=== PATIENT | male | born 1975 | race Caucasian/White ===

== ENCOUNTER 2018-12-13 22:07 | Inpatient (IN) ==
[2018-12-13 23:14] LABS: Basophils # (auto) 0.02 K/uL (0-0.2); Basophils % (auto) 0.2 %; Eosinophils # (auto) 0.31 K/uL (0-0.5); Eosinophils % (auto) 3.8 %; Hematocrit (blood only) 43.8 % (42-52); Hemoglobin 15.2 g/dL (14.0-18.0); Immature Granulocytes # (auto) 0.03 K/uL (0.00-0.02); Immature Granulocytes % (auto) 0.4 %; Lymphocytes # (auto) 2.83 K/uL (1.2-3.4); Mean Corpuscular Hgb Conc 34.7 g/dL (32-36); Mean Corpuscular Volume 90.5 fL (80-100); Mean Platelet Volume 9.6 fL (7.4-10.4); Monocytes # (auto) 0.58 K/uL (0.11-0.59); Monocytes % (auto) 7.2 %; Neutrophils # (auto) 4.32 K/uL (1.4-6.5); Neutrophils % (auto) 53.4 %; Platelet Count 274 K/uL (130-400); RDW Coefficient of Variation 13.9 % (11.5-14.5); RDW Standard Deviation 45.8 fL (36.4-46.3); Red Blood Count 4.84 M/uL (4.7-6.1); White Blood Count 8.09 K/uL (4.8-10.8)
[2018-12-13 23:34] LABS: Albumin Level 3.4 gm/dl (3.4-5.0); BUN Creatinine Ratio 21.8 (10-20); Calcium 9.1 mg/dl (8.5-10.1); Creatinine Clr Calc Pharmacy 199.3 ml/min; Est GFR (African American) 138.1; Est GFR (Non-African American) 119.2
[2018-12-13 23:43] LABS: Appearance Urine Clear (Clear); Bacteria Urine Automated Negative (Negative); Bilirubin Urine Negative (Negative); Blood Urine Negative (Negative); Color Urine Yellow; Epithelial Cell Urine Auto 20-30 /lpf (0-5); Glucose Urine UA Negative (Negative); Ketones Urine Negative (Negative); Leukocyte Esterase Urine 2+ (Negative); Nitrite Urine Negative (Negative); Protein Urine Negative (Negative); RBC Urine Automated 0-4 /hpf (0-4); Specific Gravity Urine 1.012 (1.000-1.030); Urobilinogen Urine Negative (Negative)
[2018-12-13 23:45] LABS: Albumin Globulin Ratio 1.3 (0.9-2); Bilirubin,Total 0.4 mg/dl (0.2-1); Globulin 2.7 gm/dl (2.5-4.0); Total Protein 6.1 gm/dl (6.4-8.2)
[2018-12-14 00:16] LABS: Amphetamines+Metham, Urine Neg (Neg); Barbiturates, Urine Neg (Neg); Benzodiazepine, Urine Pos (Neg); Cocaine, Urine Neg (Neg); MDMA (Ecstacy), Urine Neg (Neg); Methadone, Urine Neg (Neg); Opiate, Urine Neg (Neg); Phencyclidine, Urine Neg (Neg)
[2018-12-14] MEDS ORDERED: SODIUM CHLORIDE 0.65% NA SOLN 45 ML (OCEAN) PRN (02:52)
[2018-12-14] MEDS ORDERED: BISMUTH SUBSALICYLATE PER ML OMNICELL CHARGE PO PRN (02:52)
[2018-12-14] MEDS ORDERED: MAGNESIUM HYDROXIDE SUSP 30 ML UDC PO PRN (02:52)
[2018-12-14] MEDS ORDERED: ALUMINUM/MAGNESIUM SUSP 30 ML UDC PO PRN (02:52)
--- NOTE | 2018-12-14 03:14 | Emergency Department Note ---
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 He reports that he believes the police were called, because he took his step-father's car for a ride. He notes that he thought he was getting along well with his family prior to this. 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 He reports that he moved from [place] to [place] about 2 months ago to "get away," stating that his mother and step-father live in [place]. The patient complains of being thirsty, an increase in urination frequency, and his "head feeling like a rock." He believes the symptoms in his head are caused by Clozapine, noting that he has been taking it for the past 7 years. The patient denies abdominal pain, hearing voice, seeing things that aren't there, SI, and HI. He states that he has been eating more, because "there's nothing to do." The patient reports that he doesn't work, because of his bone disease. He states that he has stayed as an inpatient in psychiatric care in 2010. He denies using any drugs since 2004 and the regular use of alcohol. The patient notes a history of anxiety and depression. He states that he has a history of diabetes, noting that he believes it to be Type 1. Per the patient's medical records, the patient has a history of paranoid schizophrenia and borderline personality disorder. Per his mother's paperwork, the patient has been having increasing paranoid delusions and irritability. She writes that the patient believes there is something wrong with his food, and he believes that there is something wrong with meats. The mother reports in the paperwork that the patient has been stockpiling healthy food and refusing to take his medications. She states that the patient stole his step-fathers car RAILWAY SIGNAL TECHNICIAN and got cigarettes and alcohol without money. Home Medications Home Medications Medication Instructions Recorded Confirmed Type multivitamin 1 tab PO DAILY 12/13/18 12/13/18 History Past Med/Surg History Medical History Anxiety Borderline personality disorder Depression Diabetes Paranoid schizophrenia Family History Other No pertinent family history Social History Communication Ability: Effective Current Living Situation: Family Feels Safe at Home: Yes Smoking Status: Current every day smoker Review of Systems See HPI for pertinent positives & negatives. and A total of 10 systems reviewed and were otherwise negative Physical Exam Vital Signs Vital Signs - 24 hr 12/13/18 22:08 12/14/18 01:14 12/14/18 03:38 Temperature 36.3 C L Temperature Source Oral Sepsis Action Taken by Nursing No Action Required Pulse Rate 82 96 H Pulse Rate [Left] 76 Respiratory Rate 16 18 20 Respiratory Effort / Characteristics Non-Labored Spontaneous Respiratory Depth Normal Blood Pressure 143/99 H 141/91 H Blood Pressure [Left Arm] 126/74 Blood Pressure Mean 113 Blood Pressure Mean [Left Arm] 91 Blood Pressure Position [Left Arm] Sitting Pulse Oximetry 97 99 97 Oxygen Delivery Method Room Air Room Air Room Air General: Cooperative, soft-spoken. [place] lips repeatedly. HEENT: Head - normocephalic and atraumatic Pupils are equal, round, and reactive to light. Extraocular eye muscles are intact, and sclera are anicteric. Nose - moist nasal mucosa without discharge. Mouth - moist buccal mucosa. Oropharynx is nonerythematous and there is no tonsillar exudate or ed francine noted. Neck: Supple; no JVD, nuchal rigidity, cervical lymphadenopathy, or auscultated bruits. Heart: Regular rate and rhythm. There is a normal S1 and S2 with no murmurs, clicks, or gallops appreciated. Lungs: Clear to auscultation bilaterally with no wheezes, rales, or rhonchi. Abdomen: Soft, completely nontender, nondistended, with good bowel sounds. There are no palpable pulsatile masses or hepatosplenomegaly. There is no guarding, rigidity, or rebound noted. Extremities: No evidence of cyanosis, clubbing, or edema. There are easily palpable peripheral pulses. Skin: warm and dry with good turgor and no rashes. Psych: Patient seems slightly paranoid. Confused at times. The patient denies SI and HI. Course 2308: Past medical records reviewed. The patient was evaluated in room A07, and a complete history and physical examination were performed. Labs were drawn as above. 0056: I spoke with the psych telephonic case manager about the patients case. He has evaluated the patient and recommends inpatient psychiatric care. 0119: I reevaluated the patient and updated him on the plan for him to stay in the hospital. I will sign the 302. 0248: I spoke with the patient. 0313: The patient was accepted to [facility]. 0318: The patient refused to change into scrubs prior to going upstairs. 0332: I spoke with the patient about changing into scrubs, and he agreed to change. Medical Decision Making Differential Diagnosis The differential diagnosis includes: medical noncompliance, acute paranoid schizophrenia, delusions, DKA, and hyperglycemia. Medical Records Attestation: I reviewed the patient's medical records. Home Medications Current Medication List: was personally reviewed by me Laboratory Data Attestation: I reviewed the patient's lab results. Result diagrams: 12/13/18 23:06 12/13/18 23:06 Lab Results 12/13/18 12/13/18 12/13/18 Range/Units 23:06 23:06 23:06 WBC 8.09 (4.8-10.8) K/uL RBC 4.84 (4.7-6.1) M/uL Hgb 15.2 (14.0-18.0) g/dL Hct 43.8 (42-52) % MCV 90.5 (80-100) fL MCH 31.4 (25-34) pg MCHC 34.7 (32-36) g/dL RDW Std Deviation 45.8 (36.4-46.3) fL RDW Coeff of Rubens 13.9 (11.5-14.5) % Plt Count 274 (130-400) K/uL MPV 9.6 (7.4-10.4) fL Immature Gran % (Auto) 0.4 % Neut % (Auto) 53.4 % Lymph % (Auto) 35.0 % Blanco % (Auto) 7.2 % Eos % (Auto) 3.8 % Baso % (Auto) 0.2 % Immature Gran # (Auto) 0.03 H (0.00-0.02) K/uL Neut # (Auto) 4.32 (1.4-6.5) K/uL Lymph # (Auto) 2.83 (1.2-3.4) K/uL Blanco # (Auto) 0.58 (0.11-0.59) K/uL Eos # (Auto) 0.31 (0-0.5) K/uL Baso # (Auto) 0.02 (0-0.2) K/uL Sodium 139 (136-145) mmol/L Potassium 4.0 (3.5-5.1) mmol/L Chloride 108 H (98-107) mmol/L Carbon Dioxide 25 (21-32) mmol/L Anion Gap 6.0 (3-11) BUN 14 (7-18) mg/dl Creatinine 0.65 (0.6-1.4) mg/dl Est Cr Clr Drug Dosing 199.3 ml/min Est GFR ( Amer) 138.1 Est GFR (Non-Af Amer) 119.2 BUN/Creatinine Ratio 21.8 H (10-20) Glucose 89 (70-99) mg/dl Calcium 9.1 (8.5-10.1) mg/dl Total Bilirubin 0.4 (0.2-1) mg/dl AST 18 (15-37) U/L ALT 34 (12-78) U/L Alkaline Phosphatase 67 (45-117) U/L Total Protein 6.1 L (6.4-8.2) gm/dl Albumin 3.4 (3.4-5.0) gm/dl Globulin 2.7 (2.5-4.0) gm/dl Albumin/Globulin Ratio 1.3 (0.9-2) TSH 3.530 (0.300-4.500) uIu/ml Urine Color Urine Appearance (Clear) Urine pH (4.5-7.5) Ur Specific Whitney (1.000-1.030) Urine Protein (Negative) Urine Glucose (UA) (Negative) Urine Ketones (Negative) Urine Blood (Negative) Urine Nitrite (Negative) Urine Bilirubin (Negative) Urine Urobilinogen (Negative) Ur Leukocyte Esterase (Negative) Urine WBC (Auto) (0-5) /hpf Urine RBC (Auto) (0-4) /hpf U Hyaline Cast (Auto) (0-5) /lpf U Epithel Cells (Auto) (0-5) /lpf Urine Bacteria (Auto) (Negative) Urine Opiates Screen (Neg) Ur Methadone, Qual (Neg) Urine Barbiturates (Neg) Ur Phencyclidine (PCP) (Neg) U Amphetamin/Meth Scrn (Neg) MDMA (Ecstasy) Screen (Neg) U Benzodiazepines Scrn (Neg) Ur Cocaine Metabolite (Neg) U Marijuana (THC) Screen (Neg) Ethyl Alcohol mg/dL < 3.0 (0-3) mg/dl 12/13/18 12/13/18 Range/Units 23:35 23:35 WBC (4.8-10.8) K/uL RBC (4.7-6.1) M/uL Hgb (14.0-18.0) g/dL Hct (42-52) % MCV (80-100) fL MCH (25-34) pg MCHC (32-36) g/dL RDW Std Deviation (36.4-46.3) fL RDW Coeff of Rubens (11.5-14.5) % Plt Count (130-400) K/uL MPV (7.4-10.4) fL Immature Gran % (Auto) % Neut % (Auto) % Lymph % (Auto) % Blanco % (Auto) % Eos % (Auto) % Baso % (Auto) % Immature Gran # (Auto) (0.00-0.02) K/uL Neut # (Auto) (1.4-6.5) K/uL Lymph # (Auto) (1.2-3.4) K/uL Blanco # (Auto) (0.11-0.59) K/uL Eos # (Auto) (0-0.5) K/uL Baso # (Auto) (0-0.2) K/uL Sodium (136-145) mmol/L Potassium (3.5-5.1) mmol/L Chloride (98-107) mmol/L Carbon Dioxide (21-32) mmol/L Anion Gap (3-11) BUN (7-18) mg/dl Creatinine (0.6-1.4) mg/dl Est Cr Clr Drug Dosing ml/min Est GFR ( Amer) Est GFR (Non-Af Amer) BUN/Creatinine Ratio (10-20) Glucose (70-99) mg/dl Calcium (8.5-10.1) mg/dl Total Bilirubin (0.2-1) mg/dl AST (15-37) U/L ALT (12-78) U/L Alkaline Phosphatase (45-117) U/L Total Protein (6.4-8.2) gm/dl Albumin (3.4-5.0) gm/dl Globulin (2.5-4.0) gm/dl Albumin/Globulin Ratio (0.9-2) TSH (0.300-4.500) uIu/ml Urine Color Yellow Urine Appearance Clear (Clear) Urine pH 6.0 (4.5-7.5) Ur Specific Whitney 1.012 (1.000-1.030) Urine Protein Negative (Negative) Urine Glucose (UA) Negative (Negative) Urine Ketones Negative (Negative) Urine Blood Negative (Negative) Urine Nitrite Negative (Negative) Urine Bilirubin Negative (Negative) Urine Urobilinogen Negative (Negative) Ur Leukocyte Esterase 2+ H (Negative) Urine WBC (Auto) 10-30 H (0-5) /hpf Urine RBC (Auto) 0-4 (0-4) /hpf U Hyaline Cast (Auto) 1-5 (0-5) /lpf U Epithel Cells (Auto) 20-30 H (0-5) /lpf Urine Bacteria (Auto) Negative (Negative) Urine Opiates Screen Neg (Neg) Ur Methadone, Qual Neg (Neg) Urine Barbiturates Neg (Neg) Ur Phencyclidine (PCP) Neg (Neg) U Amphetamin/Meth Scrn Neg (Neg) MDMA (Ecstasy) Screen Neg (Neg) U Benzodiazepines Scrn Pos H (Neg) Ur Cocaine Metabolite Neg (Neg) U Marijuana (THC) Screen Neg (Neg) Ethyl Alcohol mg/dL (0-3) mg/dl Blood Pressure Blood Pressure Findings: Elevated blood pressure Blood Pressure Disposition: elevated BP felt to be situational MDM Narrative The patient is a 43 year old male who presents to the Emergency Room for a mental health evaluation after an incident that occurred [employer]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 The mother has significant concerns for the patient's well-being and safety. She has positioned a 302. The patient is off all of his psych meds and is extremely paranoid. He seems to have selective eating believing that some of the food is poisoned. The patient became more agitated and slightly aggressive during his stay here in the emergency department. Despite not taking his anti- hyperglycemics, the patient's blood sugar is less than 90. The patient will be admitted to 3 S. Impression & Plan Thought disorder, Noncompliance with medications Discharge Plan Visit Data Chief Complaint: Mental Health Evaluation Stated Complaint: DEPRESSION/302 ED Provider: Sabi Resendiz Discharge Problem: Thought disorder, Noncompliance with medications Patient Disposition: Admitted As Inpatient Discharge Instructions Interventions: ED Discharge Assessment Last Done: 12/14/18 03:38 The lalitoibe's documentation has been prepared under my direction and personally reviewed by me in its entirety. I confirm that the note above accurately reflects all work, treatment, procedures, and medical decision making performed by me.
[2018-12-14] MEDS ORDERED: LORazepam 2 MG/ML VIAL (IM USE) IM PRN (03:55)
[2018-12-14] MEDS ORDERED: HALOPERIDOL 5 MG TAB PO PRN (03:56)
[2018-12-14] MEDS ORDERED: HALOPERIDOL LACTATE 5 MG/ML 1 ML VIAL IM PRN ×2 (03:56→12:02)
[2018-12-14] MEDS: ACETAMINOPHEN 325 MG TAB PO PRN (04:06)
[2018-12-14] MEDS: NICOTINE 21 MG/24 HR TDSY TD SCH (10:14)
--- NOTE | 2018-12-14 10:21 | History & Physical ---
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 Results Laboratory Results - last 24 hr 12/13/18 12/13/18 12/13/18 23:06 23:06 23:06 WBC 8.09 RBC 4.84 Hgb 15.2 Hct 43.8 MCV 90.5 MCH 31.4 MCHC 34.7 RDW Std Deviation 45.8 RDW Coeff of Rubens 13.9 Plt Count 274 MPV 9.6 Immature Gran % (Auto) 0.4 Neut % (Auto) 53.4 Lymph % (Auto) 35.0 Mower % (Auto) 7.2 Eos % (Auto) 3.8 Baso % (Auto) 0.2 Immature Gran # (Auto) 0.03 H Neut # (Auto) 4.32 Lymph # (Auto) 2.83 Mower # (Auto) 0.58 Eos # (Auto) 0.31 Baso # (Auto) 0.02 Sodium 139 Potassium 4.0 Chloride 108 H Carbon Dioxide 25 Anion Gap 6.0 BUN 14 Creatinine 0.65 Est Cr Clr Drug Dosing 199.3 Est GFR ( Amer) 138.1 Est GFR (Non-Af Amer) 119.2 BUN/Creatinine Ratio 21.8 H Glucose 89 Calcium 9.1 Total Bilirubin 0.4 AST 18 ALT 34 Alkaline Phosphatase 67 Total Protein 6.1 L Albumin 3.4 Globulin 2.7 Albumin/Globulin Ratio 1.3 TSH 3.530 Urine Color Urine Appearance Urine pH Ur Specific [place] Urine Protein Urine Glucose (UA) Urine Ketones Urine Blood Urine Nitrite Urine Bilirubin Urine Urobilinogen Ur Leukocyte Esterase Urine WBC (Auto) Urine RBC (Auto) U Hyaline Cast (Auto) U Epithel Cells (Auto) Urine Bacteria (Auto) Urine Opiates Screen Ur Methadone, Qual Urine Barbiturates Ur Phencyclidine (PCP) U Amphetamin/Meth Scrn MDMA (Ecstasy) Screen U Benzodiazepines Scrn Ur Cocaine Metabolite U Marijuana (THC) Screen Ethyl Alcohol mg/dL < 3.0 12/13/18 12/13/18 23:35 23:35 WBC RBC Hgb Hct MCV MCH MCHC RDW Std Deviation RDW Coeff of Rubens Plt Count MPV Immature Gran % (Auto) Neut % (Auto) Lymph % (Auto) Mower % (Auto) Eos % (Auto) Baso % (Auto) Immature Gran # (Auto) Neut # (Auto) Lymph # (Auto) Mower # (Auto) Eos # (Auto) Baso # (Auto) Sodium Potassium Chloride Carbon Dioxide Anion Gap BUN Creatinine Est Cr Clr Drug Dosing Est GFR ( Amer) Est GFR (Non-Af Amer) BUN/Creatinine Ratio Glucose Calcium Total Bilirubin AST ALT Alkaline Phosphatase Total Protein Albumin Globulin Albumin/Globulin Ratio TSH Urine Color Yellow Urine Appearance Clear Urine pH 6.0 Ur Specific [place] 1.012 Urine Protein Negative Urine Glucose (UA) Negative Urine Ketones Negative Urine Blood Negative Urine Nitrite Negative Urine Bilirubin Negative Urine Urobilinogen Negative Ur Leukocyte Esterase 2+ H Urine WBC (Auto) 10-30 H Urine RBC (Auto) 0-4 U Hyaline Cast (Auto) 1-5 U Epithel Cells (Auto) 20-30 H Urine Bacteria (Auto) Negative Urine Opiates Screen Neg Ur Methadone, Qual Neg Urine Barbiturates Neg Ur Phencyclidine (PCP) Neg U Amphetamin/Meth Scrn Neg MDMA (Ecstasy) Screen Neg U Benzodiazepines Scrn Pos H Ur Cocaine Metabolite Neg U Marijuana (THC) Screen Neg Ethyl Alcohol mg/dL Current Inpatient Medications Current Inpatient Medications: Current Inpatient Medications Acetaminophen (Tylenol) 650 mg PO Q4H PRN PRN Reason: Headache or Minor Fever Stop: 01/13/19 02:51 Last Admin: 12/14/18 04:06 Dose: 650 mg Documented by: Al Hydrox/Mg Hydrox/Simethicone (Maalox) 30 ml PO Q4H PRN PRN Reason: GI Upset Stop: 01/13/19 02:51 Bismuth Subsalicylate (Kaopectate) 15 ml PO PRN PRN PRN Reason: Loose Stool Stop: 01/13/19 02:51 Haloperidol (Haldol) 5 mg PO Q4 PRN PRN Reason: agiation Stop: 01/13/19 03:55 Haloperidol Lactate (Haldol) 5 mg IM Q4 PRN PRN Reason: Agitation Stop: 01/13/19 03:55 Hydroxyzine HCl (Vistaril) 25 mg PO Q4H PRN PRN Reason: Anxiety Stop: 01/13/19 02:51 Hydroxyzine HCl (Vistaril) 50 mg PO HSZ PRN PRN Reason: Insomnia Stop: 01/13/19 02:51 Last Admin: 12/14/18 04:06 Dose: 50 mg Documented by: Lorazepam (Ativan) 1 mg PO Q4 PRN PRN Reason: Agitation Stop: 01/13/19 03:52 Lorazepam (Ativan) 1 mg IM Q4 PRN PRN Reason: Agitation Stop: 01/13/19 03:54 Magnesium Hydroxide (Milk Of Magnesia) 30 ml PO DAILY PRN PRN Reason: Heartburn Stop: 01/13/19 02:51 Miscellaneous (Remove Nicoderm Patch) 1 ea N/A DAILY@2100 [facility] Stop: 01/13/19 20:59 Nicotine (Nicoderm Cq) 21 mg TD QAM KELLY Stop: 01/13/19 08:59 Nicotine Polacrilex (Nicorette 2mg) 1 piece MT UD PRN PRN Reason: Nicotine Withdrawal Stop: 01/13/19 08:20 Sodium Chloride ([place] Nasal) 1 - 2 sprays NA PRN PRN PRN Reason: Nasal Dryness/Congestion Stop: 01/13/19 02:51 CPT Code CPT Code Initial Hospital Care: 13582
[2018-12-14] MEDS: HALOPERIDOL 5 MG TAB PO SCH ×2 (12:39→21:47)
[2018-12-15] MEDS: LORazepam 1 MG TAB PO PRN (09:58)
[2018-12-15] MEDS: HALOPERIDOL 5 MG TAB PO SCH ×4 (09:59→21:37)
[2018-12-15] MEDS: NICOTINE 21 MG/24 HR TDSY TD SCH (10:06)
--- NOTE | 2018-12-15 11:35 | Psychiatric Progress Note ---
Date of Service December 15, 2018 Impression / Recommendations Impression 43-year-old single male who recently moved to [facility] from [place] to live with his adoptive mother and stepfather, has a history of a primary thought disorder (schizophrenia versus schizoaffective per available information) as well as personality disorder and treatment noncompliance, multiple previous hospitalizations including one year at the [facility] in [place], most recently on clozapine and Haldol decanoate. He went off his medication 6 months ago, and has decompensated to the point that he is unable to provide for his own basic needs, and is an imminent safety risk to both himself and those around him due to his delusions, 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, antisocial behavior, and inability to differentiate reality from psychosis. 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 He has been increasingly disorganized, bizarre, and erratic in his behavior, and relies on his parents for food, clothing, and care home. They no longer feels safe with him in the home, and are unable to manage his severe psychiatric symptoms and behavior. He does not believe he is ill or needs to be in the hospital, and is refusing to take medications, sign releases for previous providers in [place] so that we can obtain records and past treatment history, or involve his parents. Inpatient treatment is medically necessary due to the severity of his psychotic symptoms and risk for harm to himself or others if discharged. The patient was retained today at a [facility] involuntary commitment hearing. The only change today is that the patient did agree to take a single dose of lorazepam when offered. (He later told me that he had refused it, and then seems surprised when I told him that, in fact, he had taken it.) Staff report that he was at least hesitant about possibly also taking Haldol. He has a history of violence directed towards authority figures including healthcare professionals, and in discussions with the team today we decided that we would continue to attempt to convince him to take oral medications, but may move to medications over objection if he continues to refuse oral antipsychotic medications. (1) Thought disorder: 12/14 -patient is a poor historian, but mother provides historical information. 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 For now we will collect psychosis not otherwise specified. -Patient is refusing to sign releases for previous outpatient providers in [place], and staff contacted them but they refused to provide any information without a signed release. -Medically necessary private room due to psychosis, erratic and disorganized behavior, history of violence, and aggressive behavior and threats to harm others here in the hospital. -Start haloperidol 5 mg twice daily, as patient has a previous good response to Haldol Decanoate and clozapine. Recommend medications over objection once he is on a 303 involuntary commitment and has been seen by a second physician, as he has severe psychotic symptoms which are preventing him from accurately interpreting reality, influencing his behavior, and placing him at risk of harm to both himself and others as he has been acting on his delusions, experiencing auditory and visual 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, paranoia, engaging in unsafe behaviors including driving when he does not have a license or the knowledge to do so, abusing substances, and has been threatening towards others. He demonstrates no insight into his condition, but available information indicates response to treatment with antipsychotic medications in the past. -Medically necessary private room due to psychosis, aggressive behavior, and threats to harm others. -We will need to check fasting lipid profile and glucose once he is cooperative. -Excused from groups from the time being until able to participate appropriately. -Refusing to sign releases for parents, but mother is petitioner, so can inform her of the 303 hearing. 4/5 -The patient did except a single dose of lorazepam this morning, and did seem to be somewhat more calm. He was mildly labile during his involuntary commitment hearing this morning, but managed to maintain control and was not aggressive during the hearing or upon learning that he had been retained by the contracting officer. Accordingly, we will continue to offer him lorazepam, since this medication in his case does not seem to be disinhibiting and, at least today, appeared to have helped him manage angry impulses during his involuntary commitment hearing. -The treatment team and I agree that, if possible, we would like to convince the patient to voluntarily take oral medications. Reports are that this morning he came close to taking oral haloperidol, but at the last minute declined. He is telling us that he will consistently refused medications, but our hope is that as we are able to gain his trust he will become more cooperative. We will continue to try to convince the patient to take oral haloperidol, but if this is unsuccessful we will seek two physician approval of medication over objection and give Haldol 5 mg IM BID. (2) Noncompliance with medications: 12/14 -stopped his medications 6 months ago and has decompensated since. Would benefit from a long-acting injectable, and either long-term inpatient treatment at the [facility] or involuntary outpatient treatment.. 4 -The patient's psychosis and severely impaired insight seem to be making him and accessible to reason, regarding the essential importance of psychiatric medications. There is a past history of favorable response to haloperidol as well as to clozapine. It is agreed that the patient would in all likelihood benefit from a long-acting injectable antipsychotic medication, given his history of recurrent medication nonadherence. (3) Substance abuse: 12/14 -patient is not forthcoming, but mother reports he has been abusing alcohol, cough syrup, diphenhydramine, and likely other substances. We will monitor for withdrawal symptoms, and as his psychosis improves, will provide psychoeducation about the risks of substance abuse and recommendations for abstinence. -Avoid controlled substances given high risk of abuse/misuse/negative outcomes. 12/15 -It is recognized that the patient has an extensive history of abusing chemical substances, and it is generally agreed that use of controlled substances does pose significant risk of abuse and other negative outcomes in the long-term. However, the patient's irritability and unwillingness to cooperate with essential medications, such as haloperidol, as well as his history of physical aggression towards others, may be mitigated by the temporary use of a benzodiazepine. Today, a single dose of lorazepam seems to have been effective in helping the patient maintain composure during an involuntary commitment hearing that did not go in his favor, and staff have noticed that he has been somewhat more cooperative today, possibly in response to the dose of lorazepam. Accordingly, staff will continue to offer the patient as needed lorazepam. (4) Antisocial personality disorder: 12/14 -extensive, lifelong history provided by adoptive mother which reveals a pervasive pattern of disregard for and violation of the rights of others which started at age 8 or earlier, failure to conform to social norms with respect to lawful behaviors as indicated by repeatedly performing acts that are grounds for arrest, deceitfulness, impulsivity and failure to plan ahead, irritability and aggressiveness, reckless disregard for safety of self and others, consistent irresponsibility, and lack of remorse. 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 -Reviewed expectations with respect to behavior on the unit. 12/15 -The patient's history of antisocial behavior is noted, and antisocial personality will not be a focus of treatment during this hospitalization. However, the record indicates that the patient's antisocial behaviors, which are lifelong, are mitigated to some extent when he is being successfully treated for his psychotic disorder. Accordingly, the approach will be to address his anti social behaviors by focusing on addressing his psychosis. Risk Factors Assessment Male: Yes : Yes Do You Have Access To A Gun?: No Health Problems: Yes Mental Health Diagnoses: Yes Substance Use Disorders: Yes Previous Attempt: No Previous Psychiatric Hospitalization: Yes Hopelessness: No Smoker: Yes Protective Factors Assessment Cheondoism Beliefs: No : No Responsible for Young Children: No Employed: No Stable Relationships: No Supportive Family: Yes Good Rapport with Provider: No Absence of Any Risk Factors Above: No Interval History Chief Complaint "I just borrowed my stepfather's car". Review of Systems Sleep Information Total Hours of Sleep: 9.5 Sleep Comments: pt appeared to sleep 2.5 hrs during evening shift. pt on q-15 minute checks Meal Information Percent Meal Consumed - Breakfast: 100 Percent Meal Consumed - Lunch: 100 Percent Meal Consumed - Dinner: 100 Subjective Subjective Patient was seen & assessed and interval progress reviewed with Treatment Team. I met with the patient individually in order to assess his current mental status, evaluate his response to treatment, coordinate any necessary treatment changes with the patient, and address issues and concerns that may arise. The patient has essentially no insight into his illness. He tells me that he has no psychiatric problem and that he has no explanation for his history of multiple psychiatric hospitalizations. He also tells me that "medications do not work" for him and tells me that he will "never take them." When I told him that his family tells us that he he did quite well when taking Haldol and clozapine, he disputes this and insists that the medications are "no good." He is not oriented, and, for example, tells me that he has been in the hospital for 4 or 5 days. When I told him that he had been admitted just yesterday, he said "no. I been here at least 4 days. I came in on ." (Today is Tuesday). He indicates that he has no remorse for taking his stepfather's car, even though he acknowledges that he took it without permission, and explains it only in terms of his desire to go "buy some stuff." (Reportedly, the stepfather's car contains several hundred dollars' worth of items, including alcoholic beverages, and the patient was not known to have any money with which to make the purchases. He acknowledges not eating food that his mother gives to him, and tells me that it is because he only wants "noodles." Staff reports that the patient has been highly suspicious when staff observed him and he has repeatedly asked staff not to look at him. The patient's mother and stepfather have reportedly advised staff that they will be unwilling to accept him back into the house because of his threatening, disorganized, and antisocial behaviors in the home. However, when I explained this to the patient, he simply told me that I was wrong and that he would go back home, or that he would go to live with "friends," evidently friends that he has not seen in several decades. Physical Exam Psychiatric Orientation: oriented to person and + guarded Apperance: + disheveled Eye Contact: + poor eye contact Motor Behavior: no abnormal motor movements Infrequent spontaneous speech. However, the patient often mutters under his breath and simply continues to mutter when asked to repeat what he is said. Affect: + blunted affect The patient states, "My mood is fine." Thought Process: + concrete thought process Illogical. Thought Content: + delusions The patient exhibits a psychotic denial regarding his illness. Specifically, he tells me that he believes that all of his hospitalizations and all efforts to treat him have been either a "mistake" or because "people are stupid." He is very guarded and answers in the negative to most questions regarding thought content, but appears highly suspicious of others. Suicidal Thoughts: denies suicidal thoughts Homicidal Thoughts: denies homicidal thoughts Hallucinations: + auditory 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 The patient appears to be actively responding to internal stimuli, even though he denies that he is hearing things that others do not. Cognition: + recent memory not intact, + remote memory not intact and + attention not intact Estimated Intelligence: + below average estimated intelligence Insight: + severely impaired insight Judgement: + severely impaired judgement Vital Signs (Past 24 Hours) Last Vital Signs Temp 36.6 C 12/15/18 06:53 Pulse 83 12/15/18 06:54 Resp 16 12/15/18 06:53 BP 124/89 12/15/18 06:54 Pulse Ox 97 12/14/18 03:38 Results & Data Current Inpatient Medications Current Inpatient Medications: Current Inpatient Medications Acetaminophen (Tylenol) 650 mg PO Q4H PRN PRN Reason: Headache or Minor Fever Stop: 01/13/19 02:51 Last Admin: 12/14/18 04:06 Dose: 650 mg Documented by: Al Hydrox/Mg Hydrox/Simethicone (Maalox) 30 ml PO Q4H PRN PRN Reason: GI Upset Stop: 01/13/19 02:51 Bismuth Subsalicylate (Kaopectate) 15 ml PO PRN PRN PRN Reason: Loose Stool Stop: 01/13/19 02:51 Haloperidol (Haldol) 5 mg PO BID KELLY Stop: 01/13/19 12:29 Last Admin: 12/15/18 09:59 Dose: Not Given Documented by: Haloperidol (Haldol) 10 mg PO Q4 PRN PRN Reason: psychosis or agitation Stop: 01/13/19 03:55 Haloperidol Lactate (Haldol) 10 mg IM Q4 PRN PRN Reason: psychosis or agitation Stop: 01/13/19 03:55 Hydroxyzine HCl (Vistaril) 25 mg PO Q4H PRN PRN Reason: Anxiety Stop: 01/13/19 02:51 Hydroxyzine HCl (Vistaril) 50 mg PO HSZ PRN PRN Reason: Insomnia Stop: 01/13/19 02:51 Last Admin: 12/14/18 04:06 Dose: 50 mg Documented by: Lorazepam (Ativan) 1 mg PO Q4 PRN PRN Reason: Agitation Stop: 01/13/19 03:52 Last Admin: 12/15/18 09:58 Dose: 1 mg Documented by: Lorazepam (Ativan) 1 mg IM Q4 PRN PRN Reason: Agitation Stop: 01/13/19 03:54 Magnesium Hydroxide (Milk Of Magnesia) 30 ml PO DAILY PRN PRN Reason: Heartburn Stop: 01/13/19 02:51 Miscellaneous (Remove Nicoderm Patch) 1 ea N/A DAILY@2100 [facility] Stop: 01/13/19 20:59 Last Admin: 12/14/18 21:47 Dose: Not Given Documented by: Nicotine (Nicoderm Cq) 21 mg TD QAM [facility] Stop: 01/13/19 08:59 Last Admin: 12/15/18 10:06 Dose: 21 mg Documented by: Nicotine Polacrilex (Nicorette 2mg) 1 piece MT UD PRN PRN Reason: Nicotine Withdrawal Stop: 01/13/19 08:20 Sodium Chloride ([place] Nasal) 1 - 2 sprays NA PRN PRN PRN Reason: Nasal Dryness/Congestion Stop: 01/13/19 02:51 Post Discharge Appointments Primary Care Physician Name Of Family Doctor: Denies Therapist Name of Therapist: Denies Terminal Block Assembler Name of Terminal Block Assembler: Denies CPT Code CPT Code 26011
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
[2018-12-16] MEDS: NICOTINE 21 MG/24 HR TDSY TD SCH (09:10)
[2018-12-16] MEDS: HALOPERIDOL 5 MG TAB PO SCH ×2 (09:10→20:04)
[2018-12-16] MEDS: LORazepam 1 MG TAB PO PRN ×2 (09:50→19:22)
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
[2018-12-16 23:58] LABS: 7-Aminoclonaz, Confirm NEGATIVE NG/ML (CUTOFF=25); Hydro-Alp Ur, GC/MS NEGATIVE NG/ML (CUTOFF=25); Hydroxyethylflurazepam, Conf NEGATIVE NG/ML (CUTOFF=50); Hydroxytriazolam NEGATIVE NG/ML (CUTOFF=50); Lorazepam, Ur GC/MS NEGATIVE NG/ML (CUTOFF=50); Nordiazepam, Confirm NEGATIVE NG/ML (CUTOFF=50); Oxazepam Ur, GC/MS 730 NG/ML (CUTOFF=50); Temazepam, Confirm >2000 NG/ML (CUTOFF=50)
[2018-12-17] MEDS: HALOPERIDOL 5 MG TAB PO SCH ×2 (07:21→20:53)
[2018-12-17] MEDS: NICOTINE 21 MG/24 HR TDSY TD SCH (07:23)
--- NOTE | 2018-12-17 10:45 | Psychiatric Progress Note ---
Date of Service December 17, 2018 Impression / Recommendations (1) Thought disorder: 12/14 -patient is a poor historian, but mother provides historical information. 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 For now we will collect psychosis not otherwise specified. -Patient is refusing to sign releases for previous outpatient providers in [place], and staff contacted them but they refused to provide any information without a signed release. -Medically necessary private room due to psychosis, erratic and disorganized behavior, history of violence, and aggressive behavior and threats to harm others here in the hospital. -Start haloperidol 5 mg twice daily, as patient has a previous good response to Haldol Decanoate and clozapine. Recommend medications over objection once he is on a 303 involuntary commitment and has been seen by a second physician, as he has severe psychotic symptoms which are preventing him from accurately interpreting reality, influencing his behavior, and placing him at risk of harm to both himself and others as he has been acting on his delusions, experiencing auditory and visual 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, paranoia, engaging in unsafe behaviors including driving when he does not have a license or the knowledge to do so, abusing substances, and has been threatening towards others. He demonstrates no insight into his condition, but available information indicates response to treatment with antipsychotic medications in the past. -Medically necessary private room due to psychosis, aggressive behavior, and threats to harm others. -We will need to check fasting lipid profile and glucose once he is cooperative. -Excused from groups from the time being until able to participate appropriately. -Refusing to sign releases for parents, but mother is petitioner, so can inform her of the 303 hearing. 12/15 -The patient did except a single dose of lorazepam this morning, and did seem to be somewhat more calm. He was mildly labile during his involuntary commitment hearing this morning, but managed to maintain control and was not aggressive during the hearing or upon learning that he had been retained by the hearing therapy director. Accordingly, we will continue to offer him lorazepam, since this medication in his case does not seem to be disinhibiting and, at least today, appeared to have helped him manage angry impulses during his involuntary commitment hearing. -The treatment team and I agree that, if possible, we would like to convince the patient to voluntarily take oral medications. Reports are that this morning he came close to taking oral haloperidol, but at the last minute declined. He is telling us that he will consistently refused medications, but our hope is that as we are able to gain his trust he will become more cooperative. We will continue to try to convince the patient to take oral haloperidol, but if this is unsuccessful we will seek two physician approval of medication over objection and give Haldol 5 mg IM BID. 12/16--tolerating Haldol, titrate to 10 mg BID. (2) Noncompliance with medications: 12/14 -stopped his medications 6 months ago and has decompensated since. Would benefit from a long-acting injectable, and either long-term inpatient treatment at the [facility] or involuntary outpatient treatment.. 12/15 -The patient's psychosis and severely impaired insight seem to be making him and accessible to reason, regarding the essential importance of psychiatric medications. There is a past history of favorable response to haloperidol as well as to clozapine. It is agreed that the patient would in all likelihood benefit from a long-acting injectable antipsychotic medication, given his history of recurrent medication nonadherence. 12/16--currently taking PO for a few doses, is on extended involuntary commitment and clearly ongoing schizophrenia which will fail to improve for him to be able to provide self-care without ongoing treatments on inpatient unit and medications over objection. Without antipsychotic medication he is at significant risk of /serious disability and a danger to himself/others. Dr. Srinivasan could provide second opinion if he refuses PO med. (3) Substance abuse: 12/14 -patient is not forthcoming, but mother reports he has been abusing alcohol, cough syrup, diphenhydramine, and likely other substances. We will monitor for withdrawal symptoms, and as his psychosis improves, will provide psychoeducation about the risks of substance abuse and recommendations for abstinence. -Avoid controlled substances given high risk of abuse/misuse/negative outcomes. 12/15 -It is recognized that the patient has an extensive history of abusing chemical substances, and it is generally agreed that use of controlled substances does p ose significant risk of abuse and other negative outcomes in the long-term. However, the patient's irritability and unwillingness to cooperate with essential medications, such as haloperidol, as well as his history of physical aggression towards others, may be mitigated by the temporary use of a benzodiazepine. Today, a single dose of lorazepam seems to have been effective in helping the patient maintain composure during an involuntary commitment hearing that did not go in his favor, and staff have noticed that he has been somewhat more cooperative today, possibly in response to the dose of lorazepam. Accordingly, staff will continue to offer the patient as needed lorazepam. (4) Antisocial personality disorder: 12/14 -extensive, lifelong history provided by adoptive mother which reveals a pervasive pattern of disregard for and violation of the rights of others which started at age 8 or earlier, failure to conform to social norms with respect to lawful behaviors as indicated by repeatedly performing acts that are grounds for arrest, deceitfulness, impulsivity and failure to plan ahead, irritability and aggressiveness, reckless disregard for safety of self and others, consistent irresponsibility, and lack of remorse. 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 -Reviewed expectations with respect to behavior on the unit. 12/15 -The patient's history of antisocial behavior is noted, and antisocial personality will not be a focus of treatment during this hospitalization. However, the record indicates that the patient's antisocial behaviors, which are lifelong, are mitigated to some extent when he is being successfully treated for his psychotic disorder. Accordingly, the approach will be to address his antisocial behaviors by focusing on addressing his psychosis. Risk Factors Assessment Male: Yes : Yes Do You Have Access To A Gun?: No Health Problems: Yes Mental Health Diagnoses: Yes Substance Use Disorders: Yes Previous Attempt: No Previous Psychiatric Hospitalization: Yes Hopelessness: No Smoker: Yes Protective Factors Assessment Ep[employer]alian Beliefs: No : No Responsible for Young Children: No Employed: No Stable Relationships: No Supportive Family: Yes Good Rapport with Provider: No Absence of Any Risk Factors Above: No Interval History Chief Complaint "I'm not willing to talk about that", when questioned re: constipation Review of Systems Sleep Information Total Hours of Sleep: 4.75 Sleep Comments: awake multiple times for the bathroom and drinks. Meal Information Percent Meal Consumed - Breakfast: 100 Percent Meal Consumed - Lunch: 0 Percent Meal Consumed - Dinner: 100 Nutrition Comment: pt. sleeping Subjective Subjective Patient was seen & assessed and interval progress reviewed with Nursing and social group worker. He appears slightly sedated this am but denies side effects. Prn Ativan X2 yesterday. Taking Haldol. He was found to peer into peer's room (females) but did not enter, has been redirectible by staff. He has not yet been told about his living situation. Staff also feel he has apnea on overnights, last testing 10 years ago--discussed PCP follow up with larry. Physical Exam Psychiatric Orientation: oriented to person and + guarded Apperance: + disheveled Eye Contact: + poor eye contact Motor Behavior: no abnormal motor movements Affect: + blunted affect Thought Process: + concrete thought process Thought Content: + delusions Suicidal Thoughts: denies suicidal thoughts Homicidal Thoughts: denies homicidal thoughts Hallucinations: no auditory 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 Cognition: + recent memory not intact, + remote memory not intact and + attention not intact Estimated Intelligence: + below average estimated intelligence Insight: + severely impaired insight Judgement: + severely impaired judgement Vital Signs (Past 24 Hours) Last Vital Signs Temp 36.7 C 12/17/18 06:52 Pulse 108 H 12/17/18 06:57 Resp 18 12/17/18 06:52 BP 96/68 L 12/17/18 06:57 Pulse Ox 97 12/14/18 03:38 Results & Data Laboratory Results Laboratory Results - last 24 hr 12/13/18 23:35 U OH-Alprazolam Confrm NEGATIVE 7-Amino Clonazepam NEGATIVE Ur Nordiazepam Confirm NEGATIVE U OH-ethylflurazepam NEGATIVE U Lorazepam Cnf GC/MS NEGATIVE U Oxazepam Confm GC/MS 730 A Ur Temazepam Confirm >2000 A U OH-Triazolam Confirm NEGATIVE U OH-Midazolam Confirm NEGATIVE Current Inpatient Medications Current Inpatient Medications: Current Inpatient Medications Acetaminophen (Tylenol) 650 mg PO Q4H PRN PRN Reason: Headache or Minor Fever Stop: 01/13/19 02:51 Last Admin: 12/14/18 04:06 Dose: 650 mg Documented by: Al Hydrox/Mg Hydrox/Simethicone (Maalox) 30 ml PO Q4H PRN PRN Reason: GI Upset Stop: 01/13/19 02:51 Bismuth Subsalicylate (Kaopectate) 15 ml PO PRN PRN PRN Reason: Loose Stool Stop: 01/13/19 02:51 Haloperidol (Haldol) 10 mg PO Q4 PRN PRN Reason: psychosis or agitation Stop: 01/13/19 03:55 Haloperidol (Haldol) 10 mg PO BID KELLY Stop: 01/15/19 20:59 Last Admin: 12/17/18 07:21 Dose: 10 mg Documented by: Haloperidol Lactate (Haldol) 10 mg IM Q4 PRN PRN Reason: psychosis or agitation Stop: 01/13/19 03:55 Hydroxyzine HCl (Vistaril) 25 mg PO Q4H PRN PRN Reason: Anxiety Stop: 01/13/19 02:51 Hydroxyzine HCl (Vistaril) 50 mg PO HSZ PRN PRN Reason: Insomnia Stop: 01/13/19 02:51 Last Admin: 12/14/18 04:06 Dose: 50 mg Documented by: Lorazepam (Ativan) 1 mg PO Q4 PRN PRN Reason: Agitation Stop: 01/13/19 03:52 Last Admin: 12/16/18 19:22 Dose: 1 mg Documented by: Lorazepam (Ativan) 1 mg IM Q4 PRN PRN Reason: Agitation Stop: 01/13/19 03:54 Magnesium Hydroxide (Milk Of Magnesia) 30 ml PO DAILY PRN PRN Reason: Heartburn Stop: 01/13/19 02:51 Miscellaneous (Remove Nicoderm Patch) 1 ea N/A DAILY@2100 [facility] Stop: 01/13/19 20:59 Last Admin: 12/16/18 20:04 Dose: Not Given Documented by: Nicotine (Nicoderm Cq) 21 mg TD QAM [facility] Stop: 01/13/19 08:59 Last Admin: 12/17/18 07:23 Dose: 21 mg Documented by: Nicotine Polacrilex (Nicorette 2mg) 1 piece MT UD PRN PRN Reason: Nicotine Withdrawal Stop: 01/13/19 08:20 Sodium Chloride (Keats Nasal) 1 - 2 sprays NA PRN PRN PRN Reason: Nasal Dryness/Congestion Stop: 01/13/19 02:51 Post Discharge Appointments Primary Care Physician Name Of Family Doctor: Denies Therapist Name of Therapist: Denies Director Account Management Name of Director Account Management: Denies CPT Code CPT Code 81510
[2018-12-17] MEDS: LORazepam 1 MG TAB PO PRN ×2 (12:00→17:01)
[2018-12-17] MEDS: ACETAMINOPHEN 325 MG TAB PO PRN (17:54)
[2018-12-18] MEDS: LORazepam 1 MG TAB PO PRN ×2 (00:23→13:02)
[2018-12-18] MEDS: HALOPERIDOL 5 MG TAB PO SCH ×2 (08:21→21:36)
[2018-12-18] MEDS: NICOTINE 21 MG/24 HR TDSY TD SCH (08:21)
--- NOTE | 2018-12-18 10:26 | Psychiatric Progress Note ---
Date of Service December 18, 2018 Impression / Recommendations Impression Patient remains on a 303. At this point he is complying with PO medications, but today says he does not want to go on and LAMA. Will continue with current meds and continue the discussion about long acting meds in view of his history of noncompliance. His mother has told staff that he may not return to her home which he is not yet aware of, and in the past, has been reported to become violent given such information. It is likely that he will require and extended in patient stay, as he has in the past, and so will wait to share that information with him when he is more likely to be in behavioral control. He may need state hospital stay. (1) Thought disorder: 12/14 -patient is a poor historian, but mother provides historical information. 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 For now we will collect psychosis not otherwise specified. -Patient is refusing to sign releases for previous outpatient providers in [place], and staff contacted them but they refused to provide any information without a signed release. -Medically necessary private room due to psychosis, erratic and disorganized behavior, history of violence, and aggressive behavior and threats to harm others here in the hospital. -Start haloperidol 5 mg twice daily, as patient has a previous good response to Haldol Decanoate and clozapine. Recommend medications over objection once he is on a 303 involuntary commitment and has been seen by a second physician, as he has severe psychotic symptoms which are preventing him from accurately interpreting reality, influencing his behavior, and placing him at risk of harm to both himself and others as he has been acting on his delusions, experiencing auditory and visual 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, paranoia, engaging in unsafe behaviors including driving when he does not have a license or the knowledge to do so, abusing substances, and has been threatening towards others. He demonstrates no insight into his condition, but available information indicates response to treatment with antipsychotic medications in the past. -Medically necessary private room due to psychosis, aggressive behavior, and threats to harm others. -We will need to check fasting lipid profile and glucose once he is cooperative. -Excused from groups from the time being until able to participate appropriately. -Refusing to sign releases for parents, but mother is petitioner, so can inform her of the 303 hearing. 4/5 -The patient did except a single dose of lorazepam this morning, and did seem to be somewhat more calm. He was mildly labile during his involuntary commitment hearing this morning, but managed to maintain control and was not aggressive during the hearing or upon learning that he had been retained by the shearing shed worker. Accordingly, we will continue to offer him lorazepam, since this medication in his case does not seem to be disinhibiting and, at least today, appeared to have helped him manage angry impulses during his involuntary commitment hearing. -The treatment team and I agree that, if possible, we would like to convince the patient to voluntarily take oral medications. Reports are that this morning he came close to taking oral haloperidol, but at the last minute declined. He is telling us that he will consistently refused medications, but our hope is that as we are able to gain his trust he will become more cooperative. We will continue to try to convince the patient to take oral haloperidol, but if this is unsuccessful we will seek two physician approval of medication over objection and give Haldol 5 mg IM BID. 12/16--tolerating Haldol, titrate to 10 mg BID. 12/18 - Continue haldol 10 mg bid - Continue discussion about LAMA - Encourage better sleep hygiene, staying awake in the day to promote sleep at night. (2) Noncompliance with medications: 12/14 -stopped his medications 6 months ago and has decompensated since. Would benefit from a long-acting injectable, and either long-term inpatient treatment [facility] the [facility] or involuntary outpatient treatment.. 12/15 -The patient's psychosis and severely impaired insight seem to be making him and accessible to reason, regarding the essential importance of psychiatric medications. There is a past history of favorable response to haloperidol as well as to clozapine. It is agreed that the patient would in all likelihood benefit from a long-acting injectable antipsychotic medication, given his history of recurrent medication nonadherence. 12/16--currently taking PO for a few doses, is on extended involuntary commitment and clearly ongoing schizophrenia which will fail to improve for him to be able to provide self-care without ongoing treatments on inpatient unit and medications over objection. Without antipsychotic medication he is at significant risk of /serious disability and a danger to himself/others. Dr. Srinivasan could provide second opinion if he refuses PO med. 12/18 - Patient refusing to consider LAMA at this time. Will continue to encourage (3) Substance abuse: 12/14 -patient is not forthcoming, but mother reports he has been abusing alcohol, cough syrup, diphenhydramine, and likely other substances. We will monitor for withdrawal symptoms, and as his psychosis improves, will provide psychoeducation about the risks of substance abuse and recommendations for abstinence. -Avoid controlled substances given high risk of abuse/misuse/negative outcomes. 12/15 -It is recognized that the patient has an extensive history of abusing chemical substances, and it is generally agreed that use of controlled substances does pose significant risk of abuse and other negative outcomes in the long-term. However, the patient's irritability and unwillingness to cooperate with essential medications, such as haloperidol, as well as his history of physical aggression towards others, may be mitigated by the temporary use of a benzodiazepine. Today, a single dose of lorazepam seems to have been effective in helping the patient maintain composure during an involuntary commitment h earing that did not go in his favor, and staff have noticed that he has been somewhat more cooperative today, possibly in response to the dose of lorazepam. Accordingly, staff will continue to offer the patient as needed lorazepam. (4) Antisocial personality disorder: 12/14 -extensive, lifelong history provided by adoptive mother which reveals a pervasive pattern of disregard for and violation of the rights of others which started at age 8 or earlier, failure to conform to social norms with respect to lawful behaviors as indicated by repeatedly performing acts that are grounds for arrest, deceitfulness, impulsivity and failure to plan ahead, irritability and aggressiveness, reckless disregard for safety of self and others, consistent irresponsibility, and lack of remorse. 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 -Reviewed expectations with respect to behavior on the unit. 12/15 -The patient's history of antisocial behavior is noted, and antisocial personality will not be a focus of treatment during this hospitalization. However, the record indicates that the patient's antisocial behaviors, which are lifelong, are mitigated to some extent when he is being successfully treated for his psychotic disorder. Accordingly, the approach will be to address his antisocial behaviors by focusing on addressing his psychosis. Risk Factors Assessment Male: Yes : Yes Do You Have Access To A Gun?: No Health Problems: Yes Mental Health Diagnoses: Yes Substance Use Disorders: Yes Previous Attempt: No Previous Psychiatric Hospitalization: Yes Hopelessness: No Smoker: Yes Protective Factors Assessment Mandaeism Beliefs: No : No Responsible for Young Children: No Employed: No Stable Relationships: No Supportive Family: Yes Good Rapport with Provider: No Absence of Any Risk Factors Above: No Interval History Identifying Information 43 yo male admitted with a primary thought disorder, admitted in acute decompensation after stopping his meds 6 mos prior. Chief Complaint "I don't know. ". Review of Systems Sleep Information Total Hours of Sleep: 7.5 Sleep Comments: awake and toileted at 0015 and 0350. he got drinks of soda at those times as well. he was medicated with ativen at 0023 per his request for anxiety/restlessness and was able to sleep. he remains to have obstructed snoring with inaudible episodes of no breath sounds and a very loud inhalation sound that restarts his breathing again. he was awake again at 0600 to time check. Meal Information Percent Meal Consumed - Breakfast: 100 Percent Meal Consumed - Lunch: 100 Percent Meal Consumed - Dinner: 100 Nutrition Comment: pt. sleeping Subjective Subjective Patient was seen & assessed and interval progress reviewed with Treatment Team. The patient was up to breakfast, but has returned to bed. last night he couldn't sleep and took some prn ativan. He indicates that his mood is "I don't know" and feels tired. He says that his thinking is "fine" and denies SI/HI, or aud/vis 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. He offers no spontaneous conversation, and says that he has no needs today. I ask him about using long acting injectable medications, but he says that he doesn't like them, the he doesn't feel good on them in the past. I encourage him to get out of bed so that he can sleep better this PM. Nursing reports that when out in the milieu, he has been looking to other patient's rooms, making them feel uncomfortable, but is cooperative with redirection. He has been taking all of his meds voluntarily with nursing doing mouth checks. Physical Exam Psychiatric Orientation: cooperative (minimally) Apperance: + disheveled (in bed) Eye Contact: + poor eye contact Motor Behavior: no abnormal motor movements Speech: normal rate/rhythm/volume of speech (hypoverbal) tired "I don't know." Thought Process: goal directed thought process Thought Content: reality based without delusions Suicidal Thoughts: denies suicidal thoughts Homicidal Thoughts: denies homicidal thoughts Hallucinations: no auditory 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 and no visual 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 Cognition: recent memory grossly intact, remote memory grossly intact, attention grossly intact and language grossly intact Estimated Intelligence: consistent with education level Insight: + impaired insight Judgement: + impaired judgement Vital Signs (Past 24 Hours) Last Vital Signs Temp 36.7 C 12/17/18 06:52 Pulse 108 H 12/17/18 06:57 Resp 18 12/17/18 06:52 BP 96/68 L 12/17/18 06:57 Pulse Ox 97 12/14/18 03:38 Results & Data Current Inpatient Medications Current Inpatient Medications: Current Inpatient Medications Acetaminophen (Tylenol) 650 mg PO Q4H PRN PRN Reason: Headache or Minor Fever Stop: 01/13/19 02:51 Last Admin: 12/17/18 17:54 Dose: 650 mg Documented by: Al Hydrox/Mg Hydrox/Simethicone (Maalox) 30 ml PO Q4H PRN PRN Reason: GI Upset Stop: 01/13/19 02:51 Bismuth Subsalicylate (Kaopectate) 15 ml PO PRN PRN PRN Reason: Loose Stool Stop: 01/13/19 02:51 Haloperidol (Haldol) 10 mg PO Q4 PRN PRN Reason: psychosis or agitation Stop: 01/13/19 03:55 Haloperidol (Haldol) 10 mg PO BID KELLY Stop: 01/15/19 20:59 Last Admin: 12/18/18 08:21 Dose: 10 mg Documented by: Haloperidol Lactate (Haldol) 10 mg IM Q4 PRN PRN Reason: psychosis or agitation Stop: 01/13/19 03:55 Hydroxyzine HCl (Vistaril) 25 mg PO Q4H PRN PRN Reason: Anxiety Stop: 01/13/19 02:51 Hydroxyzine HCl (Vistaril) 50 mg PO HSZ PRN PRN Reason: Insomnia Stop: 01/13/19 02:51 Last Admin: 12/14/18 04:06 Dose: 50 mg Documented by: Lorazepam (Ativan) 1 mg PO Q4 PRN PRN Reason: Agitation Stop: 01/13/19 03:52 Last Admin: 12/18/18 00:23 Dose: 1 mg Documented by: Lorazepam (Ativan) 1 mg IM Q4 PRN PRN Reason: Agitation Stop: 01/13/19 03:54 Magnesium Hydroxide (Milk Of Magnesia) 30 ml PO DAILY PRN PRN Reason: Heartburn Stop: 01/13/19 02:51 Miscellaneous (Remove Nicoderm Patch) 1 ea N/A DAILY@2100 [facility] Stop: 01/13/19 20:59 Last Admin: 12/17/18 20:53 Dose: Not Given Documented by: Nicotine (Nicoderm Cq) 21 mg TD QAM [facility] Stop: 01/13/19 08:59 Last Admin: 12/18/18 08:21 Dose: 21 mg Documented by: Nicotine Polacrilex (Nicorette 2mg) 1 piece MT UD PRN PRN Reason: Nicotine Withdrawal Stop: 01/13/19 08:20 Sodium Chloride ([place] Nasal) 1 - 2 sprays NA PRN PRN PRN Reason: Nasal Dryness/Congestion Stop: 01/13/19 02:51 Post Discharge Appointments Primary Care Physician Name Of Family Doctor: Denies Therapist Name of Therapist: Denies Detector Car Operator Name of Detector Car Operator: Denies CPT Code CPT Code 42041 [id number]
[2018-12-18] MEDS: ACETAMINOPHEN 325 MG TAB PO PRN ×2 (11:19→19:53)
[2018-12-19] MEDS: NICOTINE 21 MG/24 HR TDSY TD SCH (07:27)
[2018-12-19] MEDS: HALOPERIDOL 5 MG TAB PO SCH ×2 (07:27→20:32)
[2018-12-19] MEDS: ACETAMINOPHEN 325 MG TAB PO PRN ×2 (07:38→13:47)
[2018-12-19 07:47] LABS: Glucose Fasting 93 mg/dl (70-99)
[2018-12-19 07:54] LABS: Chol HDL Ratio 5; Cholesterol 178 mg/dl (0-200); HDL Cholesterol 35 mg/dl; LDL Cholesterol Calculated 106 mg/dl; Triglycerides 186 mg/dl (0-150); VLDL Cholesterol 37 mg/dl
--- NOTE | 2018-12-19 09:06 | Psychiatric Progress Note ---
Date of Service December 19, 2018 Impression / Recommendations Impression Patient remains on a 303. He has been informed that his mother will not accept him home due to his behaviors, but he has no understanding of the impact of his behaviors on others, has no ability to make reasonable decisions (ie thinks its OK to drive without a license in someone else's car) and ultimately believes his mother would never do that ("She's having carpet installed this week."). Although he is denying overt psychotic symptoms, it is clear that he has no insight into his illness, which could lead to ongoing dangerous behaviors if discharged. He says that he has no where else to go; doesn't know his father's whereabouts, grandparents are , no friends or relatives to live with. Will like need to have meeting with mother to discuss. For now continue current meds and encourage LAMA (1) Thought disorder: 12/14 -patient is a poor historian, but mother provides historical information. 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 For now we will collect psychosis not otherwise specified. -Patient is refusing to sign releases for previous outpatient providers in [place], and staff contacted them but they refused to provide any information without a signed release. -Medically necessary private room due to psychosis, erratic and disorganized behavior, history of violence, and aggressive behavior and threats to harm others here in the hospital. -Start haloperidol 5 mg twice daily, as patient has a previous good response to Haldol Decanoate and clozapine. Recommend medications over objection once he is on a 303 involuntary commitment and has been seen by a second physician, as he has severe psychotic symptoms which are preventing him from accurately interpre ting reality, influencing his behavior, and placing him at risk of harm to both himself and others as he has been acting on his delusions, experiencing auditory and visual 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, paranoia, engaging in unsafe behaviors including driving when he does not have a license or the knowledge to do so, abusing substances, and has been threatening towards others. He demonstrates no insight into his condition, but available information indicates response to treatment with antipsychotic medications in the past. -Medically necessary private room due to psychosis, aggressive behavior, and threats to harm others. -We will need to check fasting lipid profile and glucose once he is cooperative. -Excused from groups from the time being until able to participate appropriately. -Refusing to sign releases for parents, but mother is petitioner, so can inform her of the 303 hearing. 12/15 -The patient did except a single dose of lorazepam this morning, and did seem to be somewhat more calm. He was mildly labile during his involuntary commitment hearing this morning, but managed to maintain control and was not aggressive during the hearing or upon learning that he had been retained by the hearing aide technician. Accordingly, we will continue to offer him lorazepam, since this medication in his case does not seem to be disinhibiting and, at least today, appeared to have helped him manage angry impulses during his involuntary commitment hearing. -The treatment team and I agree that, if possible, we would like to convince the patient to voluntarily take oral medications. Reports are that this morning he came close to taking oral haloperidol, but at the last minute declined. He is telling us that he will consistently refused medications, but our hope is that as we are able to gain his trust he will become more cooperative. We will continue to try to convince the patient to take oral haloperidol, but if this is unsuccessful we will seek two physician approval of medication over objection and give Haldol 5 mg IM BID. 12/16--tolerating Haldol, titrate to 10 mg BID. 12/18 - Continue haldol 10 mg bid - Continue discussion about LAMA - Encourage better sleep hygiene, staying awake in the day to promote sleep at night. 12/19 - Patient allowed labs to be drawn. FBS 93, FLP WNL with the exception of triglycerides of 186. Counseled to avoid fatty red meats, saturated fats. (2) Noncompliance with medications: 12/14 -stopped his medications 6 months ago and has decompensated since. Would benefit from a long-acting injectable, and either long-term inpatient treatment at the [facility] or involuntary outpatient treatment.. 12/15 -The patient's psychosis and severely impaired insight seem to be making him and accessible to reason, regarding the essential importance of psychiatric medications. There is a past history of favorable response to haloperidol as well as to clozapine. It is agreed that the patient would in all likelihood benefit from a long-acting injectable antipsychotic medication, given his history of recurrent medication nonadherence. 12/16--currently taking PO for a few doses, is on extended involuntary commitment and clearly ongoing schizophrenia which will fail to improve for him to be able to provide self-care without ongoing treatments on inpatient unit and medications over objection. Without antipsychotic medication he is at significant risk of /serious disability and a danger to himself/others. Dr. Srinivasan could provide second opinion if he refuses PO med. 12/18 - Patient refusing to consider LAMA at this time. Will continue to encourage (3) Substance abuse: 12/14 -patient is not forthcoming, but mother reports he has been abusing alcohol, cough syrup, diphenhydramine, and likely other substances. We will monitor for withdrawal symptoms, and as his psychosis improves, will provide psychoeducation about the risks of substance abuse and recommendations for abstinence. -Avoid controlled substances given high risk of abuse/misuse/negative outcomes. 12/15 -It is recognized that the patient has an extensive history of abusing chemical substances, and it is generally agreed that use of controlled substances does pose significant risk of abuse and other negative outcomes in the long-term. However, the patient's irritability and unwillingness to cooperate with essential medications, such as haloperidol, as well as his history of physical aggression towards others, may be mitigated by the temporary use of a benzodiazepine. Today, a single dose of lorazepam seems to have been effective in helping the patient maintain composure during an involuntary commitment hearing that did not go in his favor, and staff have noticed that he has been somewhat more cooperative today, possibly in response to the dose of lorazepam. Accordingly, staff will continue to offer the patient as needed lorazepam. (4) Antisocial personality disorder: 12/14 -extensive, lifelong history provided by adoptive mother which reveals a pervasive pattern of disregard for and violation of the rights of others which started at age 8 or earlier, failure to conform to social norms with respect to lawful behaviors as indicated by repeatedly performing acts that are grounds for arrest, deceitfulness, impulsivity and failure to plan ahead, irritability and aggressiveness, reckless disregard for safety of self and others, consistent irresponsibility, and lack of remorse. 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 -Reviewed expectations with respect to behavior on the unit. 12/15 -The patient's history of antisocial behavior is noted, and antisocial personality will not be a focus of treatment during this hospitalization. However, the record indicates that the patient's antisocial behaviors, which are lifelong, are mitigated to some extent when he is being successfully treated for his psychotic disorder. Accordingly, the approach will be to address his antisocial behaviors by focusing on addressing his psychosis. Risk Factors Assessment Male: Yes : Yes Do You Have Access To A Gun?: No Health Problems: Yes Mental Health Diagnoses: Yes Substance Use Disorders: Yes Previous Attempt: No Previous Psychiatric Hospitalization: Yes Hopelessness: No Smoker: Yes Protective Factors Assessment [employer] Beliefs: No : No Responsible for Young Children: No Employed: No Stable Relationships: No Supportive Family: Yes Good Rapport with Provider: No Absence of Any Risk Factors Above: No Interval History Identifying Information 43 yo male admitted with a primary thought disorder, admitted in acute decompensation after stopping his meds 6 mos prior. Chief Complaint "I'm OK.". Review of Systems Sleep Information Total Hours of Sleep: 8.25 Sleep Comments: pt NPO during the night. pt on q-15 minute checks Meal Information Percent Meal Consumed - Breakfast: 100 Percent Meal Consumed - Lunch: 100 Percent Meal Consumed - Dinner: 100 Nutrition Comment: pt. sleeping Subjective Subjective Patient was seen & assessed and interval progress reviewed with Treatment Team. Today he is out of bed and watching TV. He continues to deny SI/HI and aud/vis 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. He doesn't want to be in the hospital saying that he can't watch the TV shows he wants, can't go outside, can't smoke or eat the food he wants. I inform him that his mother has said she does not want him to return to her home and he does not understand. I remind him that his behaviors were scary, such as taking his mother's car despite not having a drivers license. He says that "I didn't know" and goes on to say that [place] and that if he got caught they would let him off the first time. I asked how he might provide his mother with some reassurance that this won't happen again and he says "I don't know.". He has complaints of "bone pain" today, but denies CP, SOB, restlessness or GI issues. Physical Exam Psychiatric Orientation: alert and cooperative Apperance: appropriately dressed and + disheveled Eye Contact: good eye contact Motor Behavior: steady gait and station and no abnormal motor movements Speech: normal rate/rhythm/volume of speech Affect: + flat affect Mood: no depressed mood and no anxious mood Thought Process: goal directed thought process vacant Suicidal Thoughts: denies suicidal thoughts Homicidal Thoughts: denies homicidal thoughts Hallucinations: no auditory 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 and no visual 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 Cognition: recent memory grossly intact; + remote memory not intact Estimated Intelligence: consistent with education level Insight: + severely impaired insight Judgement: + severely impaired judgement Vital Signs (Past 24 Hours) Last Vital Signs Temp 36.4 C L 12/19/18 07:06 Pulse 101 H 12/19/18 07:07 Resp 16 12/19/18 07:06 BP 110/74 12/19/18 07:07 Pulse Ox 97 12/14/18 03:38 Results & Data Laboratory Results Laboratory Results - last 24 hr 12/19/18 07:17 Fasting Glucose 93 Triglycerides 186 H Cholesterol 178 LDL Cholesterol, Calc 106 VLDL Cholesterol, Calc 37 HDL Cholesterol 35 Cholesterol/HDL Ratio 5 Current Inpatient Medications Current Inpatient Medications: Current Inpatient Medications Acetaminophen (Tylenol) 650 mg PO Q4H PRN PRN Reason: Headache or Minor Fever Stop: 01/13/19 02:51 Last Admin: 12/19/18 07:38 Dose: 650 mg Documented by: Al Hydrox/Mg Hydrox/Simethicone (Maalox) 30 ml PO Q4H PRN PRN Reason: GI Upset Stop: 01/13/19 02:51 Bismuth Subsalicylate (Kaopectate) 15 ml PO PRN PRN PRN Reason: Loose Stool Stop: 01/13/19 02:51 Haloperidol (Haldol) 10 mg PO Q4 PRN PRN Reason: psychosis or agitation Stop: 01/13/19 03:55 Haloperidol (Haldol) 10 mg PO BID KELLY Stop: 01/15/19 20:59 Last Admin: 12/19/18 07:27 Dose: 10 mg Documented by: Haloperidol Lactate (Haldol) 10 mg IM Q4 PRN PRN Reason: psychosis or agitation Stop: 01/13/19 03:55 Hydroxyzine HCl (Vistaril) 25 mg PO Q4H PRN PRN Reason: Anxiety Stop: 01/13/19 02:51 Last Admin: 12/18/18 18:38 Dose: 25 mg Documented by: Hydroxyzine HCl (Vistaril) 50 mg PO HSZ PRN PRN Reason: Insomnia Stop: 01/13/19 02:51 Last Admin: 12/14/18 04:06 Dose: 50 mg Documented by: Lorazepam (Ativan) 1 mg PO Q4 PRN PRN Reason: Agitation Stop: 01/13/19 03:52 Last Admin: 12/18/18 13:02 Dose: 1 mg Documented by: Lorazepam (Ativan) 1 mg IM Q4 PRN PRN Reason: Agitation Stop: 01/13/19 03:54 Magnesium Hydroxide (Milk Of Magnesia) 30 ml PO DAILY PRN PRN Reason: Heartburn Stop: 01/13/19 02:51 Miscellaneous (Remove Nicoderm Patch) 1 ea N/A DAILY@2100 [facility] Stop: 01/13/19 20:59 Last Admin: 12/18/18 21:37 Dose: Not Given Documented by: Nicotine (Nicoderm Cq) 21 mg TD QAM [facility] Stop: 01/13/19 08:59 Last Admin: 12/19/18 07:27 Dose: 21 mg Documented by: Nicotine Polacrilex (Nicorette 2mg) 1 piece MT UD PRN PRN Reason: Nicotine Withdrawal Stop: 01/13/19 08:20 Sodium Chloride (Mono Nasal) 1 - 2 sprays NA PRN PRN PRN Reason: Nasal Dryness/Congestion Stop: 01/13/19 02:51 Post Discharge Appointments Primary Care Physician Name Of Family Doctor: Denies Therapist Name of Therapist: Denies Artillery Specialist Name of Artillery Specialist: Denies CPT Code CPT Code 65427
[2018-12-19] MEDS: NICOTINE POLACRILEX 2 MG GUM MT PRN ×2 (13:47→20:35)
[2018-12-19] MEDS: LORazepam 1 MG TAB PO PRN (13:47)
[2018-12-20] MEDS: ACETAMINOPHEN 325 MG TAB PO PRN (08:18)
[2018-12-20] MEDS: HALOPERIDOL 5 MG TAB PO SCH ×2 (08:18→20:55)
[2018-12-20] MEDS: NICOTINE 21 MG/24 HR TDSY TD SCH (08:18)
--- NOTE | 2018-12-20 08:48 | Psychiatric Progress Note ---
Date of Service December 20, 2018 Impression / Recommendations Impression Disorganization improved, but patient continues to express paranoia about medications, and paucity of thought content, with limited ability to rationally manipulate information and problem solve. Although he has been informed that his mother will not accept him home due to his behavior, he demonstrates no appreciation of this, continues to state he will return home, and lacks the ability to make reasonable decisions (ie thinks its OK to drive without a license in someone else's car). He lacks insight into his illness, which could lead to ongoing dangerous behaviors if discharged. He says that he has no where else to go; doesn't know his father's whereabouts, grandparents are , no friends or relatives to live with. Today he will have a meeting with his mother and stepfather to discuss. For now continue current meds and encourage LAMA, which she has been refusing. He does have medications over objection, and we may need to go this route if he will not accept the decanoate willingly. (1) Thought disorder: 12/14 -patient is a poor historian, but mother provides historical information. 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 For now we will collect psychosis not otherwise specified. -Patient is refusing to sign releases for previous outpatient providers in [place], and staff contacted them but they refused to provide any information without a signed release. -Medically necessary private room due to psychosis, erratic and disorganized behavior, history of violence, and aggressive behavior and threats to harm others here in the hospital. -Start haloperidol 5 mg twice daily, as patient has a previous good response to Haldol Decanoate and clozapine. Recommend medications over objection once he is on a 303 involuntary commitment and has been seen by a second physician, as he has severe psychotic symptoms which are preventing him from accurately interpret ing reality, influencing his behavior, and placing him at risk of harm to both himself and others as he has been acting on his delusions, experiencing auditory and visual 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, paranoia, engaging in unsafe behaviors including driving when he does not have a license or the knowledge to do so, abusing substances, and has been threatening towards others. He demonstrates no insight into his condition, but available information indicates response to treatment with antipsychotic medications in the past. -Medically necessary private room due to psychosis, aggressive behavior, and threats to harm others. -We will need to check fasting lipid profile and glucose once he is cooperative. -Excused from groups from the time being until able to participate appropriately. -Refusing to sign releases for parents, but mother is petitioner, so can inform her of the 303 hearing. 12/15 -The patient did except a single dose of lorazepam this morning, and did seem to be somewhat more calm. He was mildly labile during his involuntary commitment hearing this morning, but managed to maintain control and was not aggressive during the hearing or upon learning that he had been retained by the parole hearing officer. Accordingly, we will continue to offer him lorazepam, since this medication in his case does not seem to be disinhibiting and, at least today, appeared to have helped him manage angry impulses during his involuntary commitment hearing. -The treatment team and I agree that, if possible, we would like to convince the patient to voluntarily take oral medications. Reports are that this morning he came close to taking oral haloperidol, but at the last minute declined. He is telling us that he will consistently refused medications, but our hope is that as we are able to gain his trust he will become more cooperative. We will continue to try to convince the patient to take oral haloperidol, but if this is unsuccessful we will seek two physician approval of medication over objection and give Haldol 5 mg IM BID. 12/16--tolerating Haldol, titrate to 10 mg BID. 12/18 - Continue haldol 10 mg bid - Continue discussion about LAMA - Encourage better sleep hygiene, staying awake in the day to promote sleep at night. 12/19 - Patient allowed labs to be drawn. FBS 93, FLP WNL with the exception of triglycerides of 186. Counseled to avoid fatty red meats, saturated fats. 12/20 -Again discussed the recommendations for long-acting injectable antipsychotic medication with the patient, which he initially declined because he said medications are poison. He has a meeting with his family this afternoon, and I will order the first loading dose of Haldol Decanoate 50 mg IM to be administered this afternoon, and if he is unwilling to take it, we will likely need to proceed with medications over objection tomorrow. We will try to encourage him to accept the intervention, as he reportedly did fairly well on this medication in the past. (2) Noncompliance with medications: 12/14 -stopped his medications 6 months ago and has decompensated since. Would benefit from a long-acting injectable, and either long-term inpatient treatment at the critical [facility] hospital or involuntary outpatient treatment.. 12/15 -The patient's psychosis and severely impaired insight seem to be making him and accessible to reason, regarding the essential importance of psychiatric medications. There is a past history of favorable response to haloperidol as well as to clozapine. It is agreed that the patient would in all likelihood benefit from a long-acting injectable antipsychotic medication, given his history of recurrent medication nonadherence. 12/16--currently taking PO for a few doses, is on extended involuntary commitment and clearly ongoing schizophrenia which will fail to improve for him to be able to provide self-care without ongoing treatments on inpatient unit and medications over objection. Without antipsychotic medication he is at significant risk of /serious disability and a danger to himself/others. Dr. Srinivasan could provide second opinion if he refuses PO med. 12/18 - Patient refusing to consider LAMA at this time. Will continue to encourage (3) Substance abuse: 12/14 -patient is not forthcoming, but mother reports he has been abusing alcohol, cough syrup, diphenhydramine, and likely other substances. We will monitor for withdrawal symptoms, and as his psychosis improves, will provide psychoeducation about the risks of substance abuse and recommendations for abstinence. -Avoid controlled substances given high risk of abuse/misuse/negative outcomes. 12/15 -It is recognized that the patient has an extensive history of abusing chemical substances, and it is generally agreed that use of controlled substances does pose significant risk of abuse and other negative outcomes in the long-term. However, the patient's irritability and unwillingness to cooperate with essential medications, such as haloperidol, as well as his history of physical aggression towards others, may be mitigated by the temporary use of a benzodiazepine. Today, a single dose of lorazepam seems to have been effective in helping the patient maintain composure during an involuntary commitment hearing that did not go in his favor, and staff have noticed that he has been somewhat more cooperative today, possibly in response to the dose of lorazepam. Accordingly, staff will continue to offer the patient as needed lorazepam. (4) Antisocial personality disorder: 12/14 -extensive, lifelong history provided by adoptive mother which reveals a pervasive pattern of disregard for and violation of the rights of others which started at age 8 or earlier, failure to conform to social norms with respect to lawful behaviors as indicated by repeatedly performing acts that are grounds for arrest, deceitfulness, impulsivity and failure to plan ahead, irritability and aggressiveness, reckless disregard for safety of self and others, consistent irresponsibility, and lack of remorse. 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 -Reviewed expectations with respect to behavior on the unit. 12/15 -The patient's history of antisocial behavior is noted, and antisocial personality will not be a focus of treatment during this hospitalization. However, the record indicates that the patient's antisocial behaviors, which are lifelong, are mitigated to some extent when he is being successfully treated for his psychotic disorder. Accordingly, the approach will be to address his antisocial behaviors by focusing on addressing his psychosis. Risk Factors Assessment Male: Yes : Yes Do You Have Access To A Gun?: No Health Problems: Yes Mental Health Diagnoses: Yes Substance Use Disorders: Yes Previous Attempt: No Previous Psychiatric Hospitalization: Yes Hopelessness: No Smoker: Yes Protective Factors Assessment Anabaptism Beliefs: No : No Responsible for Young Children: No Employed: No Stable Relationships: No Supportive Family: Yes Good Rapport with Provider: No Absence of Any Risk Factors Above: No Interval History Identifying Information 43 yo male admitted with a primary thought disorder, admitted in acute decompensation after stopping his meds 6 mos prior. Chief Complaint "Good". Review of Systems Sleep Information Total Hours of Sleep: 8.5 Sleep Comments: pt NPO during the night. pt on q-15 minute checks Meal Information Percent Meal Consumed - Breakfast: 100 Percent Meal Consumed - Lunch: 100 Percent Meal Consumed - Dinner: 100 Nutrition Comment: pt. sleeping Subjective Subjective Patient was seen & assessed and interval progress reviewed with Treatment Team. Staff report he is going to groups, participating in treatment, and completed a case management referral. His mother and stepfather are coming for a meeting today. His mother has stated that he cannot return to live with them due to his behavior, but he insists he can return there. He has been refusing recommendations for Haldol decanoate. On my assessment, he was seen in his room, where he is lying in bed but awake. He answers questions with 1 or 2 word, vague answers. He states that his mood, appetite, and sleep are all "good." He denies 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, thoughts of harming himself, and thoughts of harming anyone else. He initially denies concerns about his medication, but when discussing recommendations for the long-acting injectable, states that medications are "poison," and he really does not want them. He continues to state that he will return home to live with his parents, although they have stated that is not an option. Reviewed treatment recommendations with him, including long-acting injectable antipsychotic, and outpatient treatment, involuntary outpatient commitment, and need to identify stable and safe housing. Physical Exam Mental Examination Large, tall male appearing older than his stated age. Casually dressed, adequate grooming. Lying in bed in no acute distress. Staring eye contact. No abnormal movements. Cooperative with the assessment, but a limited historian, giving very short, vague answers. Speech is minimal, monotone. Mood is "good," affect is blunted. Thoughts are goal-directed, denies SI and HI, but endorses paranoia regarding medication. Limited ability to rationally manipulate information, for example insisting that he will be returning home despite being informed his family will not allow him to. Alert and oriented. Insight and judgment impaired. Vital Signs (Past 24 Hours) Last Vital Signs Temp 36.4 C L 12/20/18 06:52 Pulse 112 H 12/20/18 06:53 Resp 16 12/20/18 06:52 BP 110/67 12/20/18 06:53 Pulse Ox 97 12/14/18 03:38 Results & Data Current Inpatient Medications Current Inpatient Medications: Current Inpatient Medications Acetaminophen (Tylenol) 650 mg PO Q4H PRN PRN Reason: Headache or Minor Fever Stop: 01/13/19 02:51 Last Admin: 12/20/18 08:18 Dose: 650 mg Documented by: Al Hydrox/Mg Hydrox/Simethicone (Maalox) 30 ml PO Q4H PRN PRN Reason: GI Upset Stop: 01/13/19 02:51 Bismuth Subsalicylate (Kaopectate) 15 ml PO PRN PRN PRN Reason: Loose Stool Stop: 01/13/19 02:51 Haloperidol (Haldol) 10 mg PO Q4 PRN PRN Reason: psychosis or agitation Stop: 01/13/19 03:55 Haloperidol (Haldol) 10 mg PO BID [facility] Stop: 01/15/19 20:59 Last Admin: 12/20/18 08:18 Dose: 10 mg Documented by: Haloperidol Lactate (Haldol) 10 mg IM Q4 PRN PRN Reason: psychosis or agitation Stop: 01/13/19 03:55 Hydroxyzine HCl (Vistaril) 25 mg PO Q4H PRN PRN Reason: Anxiety Stop: 01/13/19 02:51 Last Admin: 12/18/18 18:38 Dose: 25 mg Documented by: Hydroxyzine HCl (Vistaril) 50 mg PO HSZ PRN PRN Reason: Insomnia Stop: 01/13/19 02:51 Last Admin: 12/14/18 04:06 Dose: 50 mg Documented by: Lorazepam (Ativan) 1 mg PO Q4 PRN PRN Reason: Agitation Stop: 01/13/19 03:52 Last Admin: 12/19/18 13:47 Dose: 1 mg Documented by: Lorazepam (Ativan) 1 mg IM Q4 PRN PRN Reason: Agitation Stop: 01/13/19 03:54 Magnesium Hydroxide (Milk Of Magnesia) 30 ml PO DAILY PRN PRN Reason: Heartburn Stop: 01/13/19 02:51 Miscellaneous (Remove Nicoderm Patch) 1 ea N/A DAILY@2100 [facility] Stop: 01/13/19 20:59 Last Admin: 12/19/18 20:35 Dose: Not Given Documented by: Nicotine (Nicoderm Cq) 21 mg TD QAM [facility] Stop: 01/13/19 08:59 Last Admin: 12/20/18 08:18 Dose: 21 mg Documented by: Nicotine Polacrilex (Nicorette 2mg) 1 piece MT UD PRN PRN Reason: Nicotine Withdrawal Stop: 01/13/19 08:20 Last Admin: 12/19/18 20:35 Dose: 1 piece Documented by: Sodium Chloride ([place] Nasal) 1 - 2 sprays NA PRN PRN PRN Reason: Nasal Dryness/Congestion Stop: 01/13/19 02:51 Post Discharge Appointments Primary Care Physician Name Of Family Doctor: Denies Therapist Name of Therapist: Denies Business Administration Professor Name of Business Administration Professor: [employer] Phone Number for Business Administration Professor: [phone] Case Management Appointment Comment: [address], [address], [place], [place] CPT Code CPT Code 65717
[2018-12-20] MEDS ORDERED: HALOPERIDOL DECANOATE INJ 50 MG/ML VIAL IM ONE (16:00)
[2018-12-20] MEDS: LORazepam 1 MG TAB PO PRN (18:52)
[2018-12-20] MEDS ORDERED: COUGH DROP (SUGAR FREE) LOZ 24 LOZ/1 BOX BUCCAL PRN (20:41)
[2018-12-20] MEDS: NICOTINE POLACRILEX 2 MG GUM MT PRN (20:57)
[2018-12-21] MEDS: NICOTINE 21 MG/24 HR TDSY TD SCH (08:51)
[2018-12-21] MEDS: HALOPERIDOL 5 MG TAB PO SCH ×3 (08:52→15:47)
--- NOTE | 2018-12-21 09:09 | Psychiatric Progress Note ---
Date of Service December 21, 2018 Impression / Recommendations Impression Disorganization improved, but patient continues to express paranoia, delusions, and inability to rationally manipulate information and problem solve. Although he has been informed that his mother will not accept him home due to his behavior, he demonstrates no appreciation of this, continues to state he will return home, and lacks the ability to make reasonable decisions (ie thinks its OK to drive without a license in someone else's car, steel checks from his mother, etc.). He lacks insight into his illness, and is now refusing antipsychotic medication. He has been seen by 3 separate psychiatrist who all r ecommend medications over objection, and a 304 commitment will be filed today for a hearing next week. (1) Thought disorder: 12/14 -patient is a poor historian, but mother provides historical information. 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 For now we will collect psychosis not otherwise specified. -Patient is refusing to sign releases for previous outpatient providers in [place], and staff contacted them but they refused to provide any information without a signed release. -Medically necessary private room due to psychosis, erratic and disorganized behavior, history of violence, and aggressive behavior and threats to harm others here in the hospital. -Start haloperidol 5 mg twice daily, as patient has a previous good response to Haldol Decanoate and clozapine. Recommend medications over objection once he is on a 303 involuntary commitment and has been seen by a second physician, as he has severe psychotic symptoms which are preventing him from accurately interpreting reality, influencing his behavior, and placing him at risk of harm to both himself and others as he has been acting on his delusions, experiencing auditory and visual 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, paranoia, engaging in unsafe behaviors including driving when he does not have a license or the knowledge to do so, abusing substances, and has been threatening towards others. He demonstrates no insight into his condition, but available information indicates response to treatment with antipsychotic medications in the past. -Medically necessary private room due to psychosis, aggressive behavior, and threats to harm others. -We will need to check fasting lipid profile and glucose once he is cooperative. -Excused from groups from the time being until able to participate appropriately. -Refusing to sign releases for parents, but mother is petitioner, so can inform her of the 303 hearing. 12/15 -The patient did except a single dose of lorazepam this morning, and did seem to be somewhat more calm. He was mildly labile during his involuntary commitment hearing this morning, but managed to maintain control and was not aggressive during the hearing or upon learning that he had been retained by the college service officer. Accordingly, we will continue to offer him lorazepam, since this medication in his case does not seem to be disinhibiting and, at least today, appeared to have helped him manage angry impulses during his involuntary commitment hearing. -The treatment team and I agree that, if possible, we would like to convince the patient to voluntarily take oral medications. Reports are that this morning he came close to taking oral haloperidol, but at the last minute declined. He is telling us that he will consistently refused medications, but our hope is that as we are able to gain his trust he will become more cooperative. We will continue to try to convince the patient to take oral haloperidol, but if this is unsuccessful we will seek two physician approval of medication over objection and give Haldol 5 mg IM BID. 12/16--tolerating Haldol, titrate to 10 mg BID. 12/18 - Continue haldol 10 mg bid - Continue discussion about LAMA - Encourage better sleep hygiene, staying awake in the day to promote sleep at night. 12/19 - Patient allowed labs to be drawn. FBS 93, FLP WNL with the exception of triglycerides of 186. Counseled to avoid fatty red meats, saturated fats. 12/20 -Again discussed the recommendations for long-acting injectable antipsychotic medication with the patient, which he initially declined because he said medications are poison. He has a meeting with his family this afternoon, and I will order the first loading dose of Haldol Decanoate 50 mg IM to be administered this afternoon, and if he is unwilling to take it, we will likely need to proceed with medications over objection tomorrow. We will try to encourage him to accept the intervention, as he reportedly did fairly well on this medication in the past. 12/21 -proceed with medications over objection: Haldol Decanoate 100 mg IM today, and Haldol 10 mg IM for refusal of oral Haldol. He will need 100-200 mg of Haldol Decanoate every 4 weeks based on his current oral dose, so will continue oral haloperidol for now until we can monitor response to the decanoate. (2) Noncompliance with medications: 12/14 -stopped his medications 6 months ago and has decompensated since. Would benefit from a long-acting injectable, and either long-term inpatient treatment at the [facility] or involuntary outpatient treatment.. 12/15 -The patient's psychosis and severely impaired insight seem to be making him and accessible to reason, regarding the essential importance of psychiatric medications. There is a past history of favorable response to haloperidol as well as to clozapine. It is agreed that the patient would in all likelihood benefit from a long-acting injectable antipsychotic medication, given his history of recurrent medication nonadherence. 12/16--currently taking PO for a few doses, is on extended involuntary commitment and clearly ongoing schizophrenia which will fail to improve for him to be able to provide self-care without ongoing treatments on inpatient unit and medications over objection. Without antipsychotic medication he is at significant risk of /serious disability and a danger to himself/others. Dr. Srinivasan could provide second opinion if he refuses PO med. 12/18- Patient refusing to consider LAMA at this time. Will continue to encourage 12/21 -patient continues to refuse Haldol Decanoate, and is now also refusing oral Haldol. We will proceed with medications over objection, as he has a diagnosis of primary thought disorder, has benefited from Haldol Decanoate in the past, he is actively delusional and is refusing medications due to psychotic thought processes, and is at risk of harm to both himself and others if he remains untreated. He has a significant history of violence tied to his delusions, and it will be important to get his symptoms adequately managed to decrease the risk of violence towards others here in the hospital. (3) Substance abuse: 12/14 -patient is not forthcoming, but mother reports he has been abusing alcohol, cough syrup, diphenhydramine, and likely other substances. We will monitor for withdrawal symptoms, and as his psychosis improves, will provide psychoeducation about the risks of substance abuse and recommendations for abstinence. -Avoid controlled substances given high risk of abuse/misuse/negative outcomes. 12/15 -It is recognized that the patient has an extensive history of abusing chemical substances, and it is generally agreed that use of controlled substances does pose significant risk of abuse and other negative outcomes in the long-term. However, the patient's irritability and unwillingness to cooperate with essential medications, such as haloperidol, as well as his history of physical aggression towards others, may be mitigated by the temporary use of a benzodiazepine. Today, a single dose of lorazepam seems to have been effective in helping the patient maintain composure during an involuntary commitment hearing that did not go in his favor, and staff have noticed that he has been somewhat more cooperative today, possibly in response to the dose of lorazepam. Accordingly, staff will continue to offer the patient as needed lorazepam. 12/21 -admission drug screen was positive for benzodiazepines, with significantly elevated temazepam (> 2000) and elevated oxazepam levels. Although he denied taking benzodiazepines prior to admission, he clearly was accessing them somehow. (4) Antisocial personality disorder: 12/14 -extensive, lifelong history provided by adoptive mother which reveals a pervasive pattern of disregard for and violation of the rights of others which started at age 8 or earlier, failure to conform to social norms with respect to lawful behaviors as indicated by repeatedly performing acts that are grounds for arrest, deceitfulness, impulsivity and failure to plan ahead, irritability and aggressiveness, reckless disregard for safety of self and others, consistent irresponsibility, and lack of remorse. 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 -Reviewed expectations with respect to behavior on the unit. 12/15 -The patient's history of antisocial behavior is noted, and antisocial personality will not be a focus of treatment during this hospitalization. However, the record indicates that the patient's antisocial behaviors, which are lifelong, are mitigated to some extent when he is being successfully treated for his psychotic disorder. Accordingly, the approach will be to address his antisocial behaviors by focusing on addressing his psychosis. Risk Factors Assessment Male: Yes : Yes Do You Have Access To A Gun?: No Health Problems: Yes Mental Health Diagnoses: Yes Substance Use Disorders: Yes Previous Attempt: No Previous Psychiatric Hospitalization: Yes Hopelessness: No Smoker: Yes Protective Factors Assessment Jain Beliefs: No : No Responsible for Young Children: No Employed: No Stable Relationships: No Supportive Family: Yes Good Rapport with Provider: No Absence of Any Risk Factors Above: No Interval History Identifying Information APRIL GONZALEZ is a 43-year-old M who lives in [place] with his parents, has a history of a psychotic disorder (specific diagnosis not yet known, but history of multiple previous hospitalizations including a 1 year state hospitalization in [place]), and was admitted on 12/14/18 03:41 on a 302 involuntary commitment for psychosis, treatment noncompliance, and erratic, unsafe behavior. He is on a 303 involuntary commitment as of 12/15/2018. Chief Complaint "I'm not taking medicine". Review of Systems Sleep Information Total Hours of Sleep: 5.5 Sleep Comments: up to the bathroom and to the kitchen for a drink. Meal Information Percent Meal Consumed - Breakfast: 100 Percent Meal Consumed - Lunch: 90 Percent Meal Consumed - Dinner: 100 Nutrition Comment: pt. sleeping Subjective Subjective Patient was seen & assessed and interval progress reviewed with Treatment Team. Staff report he refused Haldol decanoate yesterday, as well as his oral Haldol. He attended some groups, and despite being informed that his parents would not allow him to return to their home, he continued to insist that he was going back there at discharge, saying his parents were just joking. He requested and received Ativan for anxiety. He completed a case management referral, and a message was left at the [facility] requesting that the embedded case manager meet with him here in the hospital to start discharge planning and nursing home referrals. Family meeting was held with the patient, social media director, his mother and stepfather; treatment recommendations were reviewed, including return to a long-acting injectable antipsychotic, involuntary outpatient commitment, and placement in a safe and stable living environment. The patient's parents reported that he had a good response to his previous antipsychotic regimen of Haldol Decanoate and clozapine. He expressed delusions during the meeting, stating that he has a bone disease, and was going to get a job picking up "all the babes." His mother stated that the police are investigating his theft of her checks, which he used to buy alcohol and cigarettes on the day of admission. He refused to discussed alternative living situations, stating he would return home to [facility]. His parents stated that he appeared delusional, and that he had become physically violent in the past as a result of his delusions. On my assessment today, the patient states that he will not take any medication, "I don't care how many times you offer it, I'm not taking it, I took it before." He says he cannot take medication because it "makes me psychotic." He is unwilling to engage in a discussion of alternative antipsychotic medications, and states he does not need any treatment. He continues to state that he can go home to live with his parents, and when reminded that he just had a meeting with them yesterday where they clearly informed him that that was not an option, he says "oh yeah." Informed him that as per our previous discussions, antipsychotic medication was part of his treatment, and the because he is on an involuntary commitment and multiple physicians have seen him and recommended medications over objection, that he would receive the shot today, and that the goal was to help with his thinking and symptoms so that he could eventually be discharged. Also informed him of the plan to hold a 304 commitment hearing next week, and the possibility of the need for long-term hospitalization at a state hospital. He appears to confuse this with his criminal behavior, stating that he is being held here because "I stole some things." Advised that he is here for mental health treatment, with a goal to treat his symptoms and enable him to be discharged to the community. He threatened to rainer, said he would go call his tool specialist, then walked to the day room and sat down to watch TV. Physical Exam Psychiatric Orientation: alert and + guarded; + uncooperative Apperance: appropriately dressed Tall, large male, appears older than stated age. Fair hygiene and grooming. Eye Contact: good eye contact Motor Behavior: steady gait and station and no abnormal motor movements Give short answers. Speech is nonspontaneous. Monotone. Affect: + irritable affect Thought Process: + concrete thought process Thought Content: + paranoid and + delusions Suicidal Thoughts: denies suicidal thoughts Homicidal Thoughts: denies homicidal thoughts Hallucinations: no auditory 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 Cognition: attention grossly intact and language grossly intact; + recent memory not intact and + remote memory not intact Insight: + severely impaired insight Judgement: + severely impaired judgement Vital Signs (Past 24 Hours) Last Vital Signs Temp 36.6 C 12/21/18 06:00 Pulse 98 H 12/21/18 06:00 Resp 18 12/21/18 06:00 BP 121/77 12/21/18 06:00 Pulse Ox 97 12/14/18 03:38 Results & Data Current Inpatient Medications Current Inpatient Medications: Current Inpatient Medications Acetaminophen (Tylenol) 650 mg PO Q4H PRN PRN Reason: Headache or Minor Fever Stop: 01/13/19 02:51 Last Admin: 12/20/18 08:18 Dose: 650 mg Documented by: Al Hydrox/Mg Hydrox/Simethicone (Maalox) 30 ml PO Q4H PRN PRN Reason: GI Upset Stop: 01/13/19 02:51 Bismuth Subsalicylate (Kaopectate) 15 ml PO PRN PRN PRN Reason: Loose Stool Stop: 01/13/19 02:51 Haloperidol (Haldol) 10 mg PO Q4 PRN PRN Reason: psychosis or agitation Stop: 01/13/19 03:55 Haloperidol (Haldol) 10 mg PO BID KELLY Stop: 01/15/19 20:59 Last Admin: 12/21/18 08:52 Dose: Not Given Documented by: Haloperidol Lactate (Haldol) 10 mg IM Q4 PRN PRN Reason: psychosis or agitation Stop: 01/13/19 03:55 Hydroxyzine HCl (Vistaril) 25 mg PO Q4H PRN PRN Reason: Anxiety Stop: 01/13/19 02:51 Last Admin: 12/18/18 18:38 Dose: 25 mg Documented by: Hydroxyzine HCl (Vistaril) 50 mg PO HSZ PRN PRN Reason: Insomnia Stop: 01/13/19 02:51 Last Admin: 12/14/18 04:06 Dose: 50 mg Documented by: Lorazepam (Ativan) 1 mg PO Q4 PRN PRN Reason: Agitation Stop: 01/13/19 03:52 Last Admin: 12/20/18 18:52 Dose: 1 mg Documented by: Lorazepam (Ativan) 1 mg IM Q4 PRN PRN Reason: Agitation Stop: 01/13/19 03:54 Magnesium Hydroxide (Milk Of Magnesia) 30 ml PO DAILY PRN PRN Reason: Heartburn Stop: 01/13/19 02:51 Menthol (Nice) 1 be BUCCAL Q2H PRN PRN Reason: Sore Throat Stop: 01/19/19 20:40 Last Admin: 12/20/18 20:52 Dose: 1 be Documented by: Miscellaneous (Remove Nicoderm Patch) 1 ea N/A DAILY@2100 KELLY Stop: 01/13/19 20:59 Last Admin: 12/20/18 20:57 Dose: 1 ea Documented by: Nicotine (Nicoderm Cq) 21 mg TD QAM KELLY Stop: 01/13/19 08:59 Last Admin: 12/21/18 08:51 Dose: 21 mg Documented by: Nicotine Polacrilex (Nicorette 2mg) 1 piece MT UD PRN PRN Reason: Nicotine Withdrawal Stop: 01/13/19 08:20 Last Admin: 12/20/18 20:57 Dose: 1 piece Documented by: Sodium Chloride (Marinette Nasal) 1 - 2 sprays NA PRN PRN PRN Reason: Nasal Dryness/Congestion Stop: 01/13/19 02:51 Post Discharge Appointments Primary Care Physician Name Of Family Doctor: Denies Therapist Name of Therapist: Denies Gimp Buttonhole Machine Operator Name of Gimp Buttonhole Machine Operator: [employer] Phone Number for Gimp Buttonhole Machine Operator: [phone] Case Management Appointment Comment: [address], [address], [place], [place] CPT Code CPT Code 73224
[2018-12-21] MEDS ORDERED: HALOPERIDOL LACTATE 5 MG/ML 1 ML VIAL IM PRN (09:57)
[2018-12-21] MEDS ORDERED: HALOPERIDOL DECANOATE INJ 50 MG/ML VIAL IM ONE (10:15)
[2018-12-21] MEDS: LORazepam 1 MG TAB PO PRN (10:38)
[2018-12-22] MEDS: NICOTINE 21 MG/24 HR TDSY TD SCH (09:21)
[2018-12-22] MEDS: HALOPERIDOL 5 MG TAB PO SCH ×2 (09:21→16:37)
--- NOTE | 2018-12-22 18:17 | Psychiatric Progress Note ---
Date of Service December 22, 2018 Impression / Recommendations Impression The patient's thinking remains somewhat disorganized and he also continues to have difficulty concentrating and laying down certain new memory. Today, on examination he voiced no paranoid thoughts, and no delusional material was identified and the patient's thought content. He tells me that he has liked working with the staff on the unit and has also enjoyed speaking with some of the other patients on the unit. Of note is the fact that when it was explained to him that although we understand that he is eager to leave the hospital we need to work towards further stabilization, and also need to find an appropriate supportive living situation and outpatient treatment that is consistent with his needs, the patient nodded and said that he understood. I have not seen him for a week, and I am struck by the fact that he is significantly more calm and form less reactive. He also does not seem particularly angry underneath. While the patient may continue to harbor delusional believes, he seems able to suppress them and function in a basically appropriate manner, at least when provided the structure of an inpatient hospital setting. The patient's long history of antisocial behavior, combined as it is with periodic nonadherence with outpatient psychiatric treatment and a primary diagnosis of a thought disorder render transition to a less intensive, less restrictive level of care difficult to obtain. At the present time, inpatient psychiatric hospitalization is the least intensive, least restrictive level of care consistent with the patient's clinical needs (1) Thought disorder: 12/14 -patient is a poor historian, but mother provides historical information. 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 For now we will collect psychosis not otherwise specified. -Patient is refusing to sign releases for previous outpatient providers in [place], and staff contacted them but they refused to provide any information without a signed release. -Medically necessary private room due to psychosis, erratic and disorganized behavior, history of violence, and aggressive behavior and threats to harm others here in the hospital. -Start haloperidol 5 mg twice daily, as patient has a previous good response to Haldol Decanoate and clozapine. Recommend medications over objection once he is on a 303 involuntary commitment and has been seen by a second physician, as he has severe psychotic symptoms which are preventing him from accurately interpreting reality, influencing his behavior, and placing him at risk of harm to both himself and others as he has been acting on his delusions, experiencing auditory and visual 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, paranoia, engaging in unsafe behaviors inclu ding driving when he does not have a license or the knowledge to do so, abusing substances, and has been threatening towards others. He demonstrates no insight into his condition, but available information indicates response to treatment with antipsychotic medications in the past. -Medically necessary private room due to psychosis, aggressive behavior, and threats to harm others. -We will need to check fasting lipid profile and glucose once he is cooperative. -Excused from groups from the time being until able to participate appropriately. -Refusing to sign releases for parents, but mother is petitioner, so can inform her of the 303 hearing. 12/15 -The patient did except a single dose of lorazepam this morning, and did seem to be somewhat more calm. He was mildly labile during his involuntary commitment hearing this morning, but managed to maintain control and was not aggressive during the hearing or upon learning that he had been retained by the shearing machine tender. Accordingly, we will continue to offer him lorazepam, since this medication in his case does not seem to be disinhibiting and, at least today, appeared to have helped him manage angry impulses during his involuntary comm itment hearing. -The treatment team and I agree that, if possible, we would like to convince the patient to voluntarily take oral medications. Reports are that this morning he came close to taking oral haloperidol, but at the last minute declined. He is telling us that he will consistently refused medications, but our hope is that as we are able to gain his trust he will become more cooperative. We will continue to try to convince the patient to take oral haloperidol, but if this is unsuccessful we will seek two physician approval of medication over objection and give Haldol 5 mg IM BID. 12/16--tolerating Haldol, titrate to 10 mg BID. 12/18 - Continue haldol 10 mg bid - Continue discussion about LAMA - Encourage better sleep hygiene, staying awake in the day to promote sleep at night. 12/19 - Patient allowed labs to be drawn. FBS 93, FLP WNL with the exception of triglycerides of 186. Counseled to avoid fatty red meats, saturated fats. 12/20 -Again discussed the recommendations for long-acting injectable antipsychotic medication with the patient, which he initially declined because he said medications are poison. He has a meeting with his family this afternoon, and I will order the first loading dose of Haldol Decanoate 50 mg IM to be administered this afternoon, and if he is unwilling to take it, we will likely need to proceed with medications over objection tomorrow. We will try to encourage him to accept the intervention, as he reportedly did fairly well on this medication in the past. 12/21 -proceed with medications over objection: Haldol Decanoate 100 mg IM today, and Haldol 10 mg IM for refusal of oral Haldol. He will need 100-200 mg of Haldol Decanoate every 4 weeks based on his current oral dose, so will continue oral haloperidol for now until we can monitor response to the decanoate. 12/22 -the patient received Haldol Decanoate intramuscularly today, as a medication over objection. He tolerated the injection well, and today tells me that he "feels pretty good." -Today, the patient's associations seemed to be fairly tight on examination. He tends to be somewhat concrete in his thinking, but, as above, he did seem able to understand our rationale for continuing inpatient treatment at this point. Present on Admission?: Yes (2) Noncompliance with medications: 12/14 -stopped his medications 6 months ago and has decompensated since. Would benefit from a long-acting injectable, and either long-term inpatient treatment at the [facility] or involuntary outpatient treatment.. 12/15 -The patient's psychosis and severely impaired insight seem to be making him and accessible to reason, regarding the essential importance of psychiatric medications. There is a past history of favorable response to haloperidol as well as to clozapine. It is agreed that the patient would in all likelihood benefit from a long-acting injectable antipsychotic medication, given his history of recurrent medication nonadherence. 12/16--currently taking PO for a few doses, is on extended involuntary commitment and clearly ongoing schizophrenia which will fail to improve for him to be able to provide self-care without ongoing treatments on inpatient unit and medications over objection. Without antipsychotic medication he is at significant risk of /serious disability and a danger to himself/others. Dr. Srinivasan could provide second opinion if he refuses PO med. 12/18- Patient refusing to consider LAMA at this time. Will continue to encourage 12/21 -patient continues to refuse Haldol Decanoate, and is now also refusing oral Haldol. We will proceed with medications over objection, as he has a diagnosis of primary thought disorder, has benefited from Haldol Decanoate in the past, he is actively delusional and is refusing medications due to psychotic thought processes, and is at risk of harm to both himself and others if he remains untreated. He has a significant history of violence tied to his delusions, and it will be important to get his symptoms adequately managed to decrease the risk of violence towards others here in the hospital. 12/22 -medication adherence is most certainly going issue with this patient. We are recommending the continued use of Depo forms of antipsychotic medications, but, in the past, the patient has simply refused to return to the office of the healthcare professional who is administering the sectionas was the case last year when, after doing reasonably well, he stopped going for treatment, and stopped excepting medications. For this reason, we are carefully looking for a supportive living setting for this patient, preferably one that has the resources necessary to assist the resistant, not adherent to patient. Present on Admission?: Yes (3) Substance abuse: 12/14 -patient is not forthcoming, but mother reports he has been abusing alcohol, cough syrup, diphenhydramine, and likely other substances. We will monitor for withdrawal symptoms, and as his psychosis improves, will provide psychoeducation about the risks of substance abuse and recommendations for abstinence. -Avoid controlled substances given high risk of abuse/misuse/negative outcomes. 12/15 -It is recognized that the patient has an extensive history of abusing chemical substances, and it is generally agreed that use of controlled substances does pose significant risk of abuse and other negative outcomes in the long-term. However, the patient's irritability and unwillingness to cooperate with essential medications, such as haloperidol, as well as his history of physical aggression towards others, may be mitigated by the temporary use of a benzodiazepine. Today, a single dose of lorazepam seems to have been effective in helping the patient maintain composure during an involuntary commitment hearing that did not go in his favor, and staff have noticed that he has been somewhat more cooperative today, possibly in response to the dose of lorazepam. Accordingly, staff will continue to offer the patient as needed lorazepam. 12/21 -admission drug screen was positive for benzodiazepines, with significantly elevated temazepam (> 2000) and elevated oxazepam levels. Although he denied taking benzodiazepines prior to admission, he clearly was accessing them somehow. 12/22 -the patient is able to give what may be referred to as "lip service" to the concept of abstinence from drugs of abuse, but he seems to have little or no insight into the risks associated with his abuse of mood altering chemical substances, particularly within the context of his psychiatric illness. Again, a whole will be to identify an aftercare placement that we will be able to monitor him more assiduously for access to abusable chemical substances, including prescription medications, alcohol, and other drugs of abuse. Present on Admission?: Yes (4) Antisocial personality disorder: 12/14 -extensive, lifelong history provided by adoptive mother which reveals a pervasive pattern of disregard for and violation of the rights of others which started at age 8 or earlier, failure to conform to social norms with respect to lawful behaviors as indicated by repeatedly performing acts that are grounds for arrest, deceitfulness, impulsivity and failure to plan ahead, irritability and aggressiveness, reckless disregard for safety of self and others, consistent irresponsibility, and lack of remorse. 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 -Reviewed expectations with respect to behavior on the unit. 12/15 -The patient's history of antisocial behavior is noted, and antisocial personality will not be a focus of treatment during this hospitalization. However, the record indicates that the patient's antisocial behaviors, which are lifelong, are mitigated to some extent when he is being successfully treated for his psychotic disorder. Accordingly, the approach will be to address his antisocial behaviors by focusing on addressing his psychosis. 12/22 -The patient's long-standing history of antisocial behaviorbehavior which reportedly predates the onset of his symptoms of schizophreniahave not been a focus of treatment and are unlikely to change. Careful monitoring, diversion, containment to the degree possible, to containment of the most appropriate interventions for this problem. Present on Admission?: Yes Inventory Assets Strengths: Good physical health. Able to form alliances with certain peers. Concerned and supportive parents. Needs: Continued adherence with psychiatric medications. Sustained recovery from psychotic features. Risk Factors Assessment Male: Yes : Yes Do You Have Access To A Gun?: No Health Problems: Yes Mental Health Diagnoses: Yes Substance Use Disorders: Yes Previous Attempt: No Previous Psychiatric Hospitalization: Yes Hopelessness: No Smoker: Yes Protective Factors Assessment Confucianism Beliefs: No : No Responsible for Young Children: No Employed: No Stable Relationships: No Supportive Family: Yes Good Rapport with Provider: No Absence of Any Risk Factors Above: No Interval History Identifying Information APRIL GONZALEZ is a 43-year-old M who lives in [place] with his parents, has a history of a psychotic disorder (specific diagnosis not yet known, but history of multiple previous hospitalizations including a 1 year state hospitalization in [place]), and was admitted on 12/14/18 03:41 on a 302 involuntary commitment for psychosis, treatment noncompliance, and erratic, unsafe behavior. He is on a 303 involuntary commitment as of 12/15/2018. Chief Complaint "Can I leave yet?" Review of Systems Sleep Information Total Hours of Sleep: 7.75 Sleep Comments: up to the bathroom and to the kitchen for a drink. Meal Information Percent Meal Consumed - Breakfast: 90 Percent Meal Consumed - Lunch: 100 Percent Meal Consumed - Dinner: 100 Nutrition Comment: pt. sleeping Subjective Subjective Patient was seen & assessed and interval progress reviewed with Treatment Team. I met with the patient individually in order to assess his current mental status, evaluate his response to treatment, coordinate any necessary changes in his treatment regimen with the patient, and address issues and concerns that may arise. The patient had approached me several times during the day to ask if he could be dischargedwithin the context of seeing several other patients who are in the process of being discharged. I was able to explain to him that we are still working to stabilize his condition and, in addition, we feel that it is necessary to find an appropriate level of care for him in the community in order to keep him safe and prevent him from becoming ill again or requiring additional hospitalization. Somewhat to my surprise, the patient nodded and said that he understood. The patient also tells me that he has been fairly happy in the hospital recently. He notes that he was able to change to a different room, when that offers him more privacy and his, and he has enjoyed the view out the windows. He also says he is enjoyed the hospital food and has enjoyed talking to other people. Of note is that he has formed several alliances among the patient group, and we have really seen none of the aggressive behavior that has reportedly occurred in another institutional settings. The patient was able to discuss his goals for the future and discloses that he finds that he does best when he is able to have "peace and quiet" and relax. He finds watching cartoons to be a very relaxing things to do, and we talked about using this as a way of calming himself when he feels upset or anxious. We also discussed the importance of abstaining from alcohol and other drugs of abuse while undergoing psychiatric treatment. Essentially, the patient offers no complaints at this point other than a desire to able to find a place to live and go home. Physical Exam Psychiatric Orientation: oriented to person, oriented to place and cooperative Apperance: appropriately dressed and appropriately groomed Eye Contact: good eye contact Motor Behavior: steady gait and station Speech: normal rate/rhythm/volume of speech Affect: + constricted affect "I'm in an okay mood." Thought Process: goal directed thought process Thought Content: reality based without delusions Suicidal Thoughts: denies suicidal thoughts Homicidal Thoughts: denies homicidal thoughts Hallucinations: no auditory 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 The patient continues to have certain problems with his his immediate and long- term memory that S or circumstance that may be attributable to ongoing difficulties with concentration. Estimated Intelligence: + below average estimated intelligence Insight: + poor insight Judgement: + limited judgement Vital Signs (Past 24 Hours) Last Vital Signs Temp 36.3 C L 12/22/18 06:00 Pulse 106 H 12/22/18 07:17 Resp 18 12/22/18 06:00 BP 110/70 12/22/18 07:17 Pulse Ox 97 12/14/18 03:38 Results & Data Current Inpatient Medications Current Inpatient Medications: Current Inpatient Medications Acetaminophen (Tylenol) 650 mg PO Q4H PRN PRN Reason: Headache or Minor Fever Stop: 01/13/19 02:51 Last Admin: 12/20/18 08:18 Dose: 650 mg Documented by: Al Hydrox/Mg Hydrox/Simethicone (Maalox) 30 ml PO Q4H PRN PRN Reason: GI Upset Stop: 01/13/19 02:51 Bismuth Subsalicylate (Kaopectate) 15 ml PO PRN PRN PRN Reason: Loose Stool Stop: 01/13/19 02:51 Haloperidol (Haldol) 10 mg PO Q4 PRN PRN Reason: psychosis or agitation Stop: 01/13/19 03:55 Haloperidol (Haldol) 10 mg PO 0900,1600 KELLY Stop: 01/20/19 09:59 Last Admin: 12/22/18 16:37 Dose: 10 mg Documented by: Haloperidol Lactate (Haldol) 10 mg IM Q4 PRN PRN Reason: psychosis or agitation Stop: 01/13/19 03:55 Haloperidol Lactate (Haldol) 10 mg IM 0900,1600 PRN PRN Reason: refusal of PO Stop: 01/20/19 09:56 Hydroxyzine HCl (Vistaril) 25 mg PO Q4H PRN PRN Reason: Anxiety Stop: 01/13/19 02:51 Last Admin: 12/18/18 18:38 Dose: 25 mg Documented by: Hydroxyzine HCl (Vistaril) 50 mg PO HSZ PRN PRN Reason: Insomnia Stop: 01/13/19 02:51 Last Admin: 12/21/18 21:37 Dose: 50 mg Documented by: Lorazepam (Ativan) 1 mg PO Q4 PRN PRN Reason: Agitation Stop: 01/13/19 03:52 Last Admin: 12/21/18 10:38 Dose: 1 mg Documented by: Lorazepam (Ativan) 1 mg IM Q4 PRN PRN Reason: Agitation Stop: 01/13/19 03:54 Magnesium Hydroxide (Milk Of Magnesia) 30 ml PO DAILY PRN PRN Reason: Heartburn Stop: 01/13/19 02:51 Menthol (Nice) 1 be BUCCAL Q2H PRN PRN Reason: Sore Throat Stop: 01/19/19 20:40 Last Admin: 12/20/18 20:52 Dose: 1 be Documented by: Miscellaneous (Remove Nicoderm Patch) 1 ea N/A DAILY@2100 [facility] Stop: 01/13/19 20:59 Last Admin: 12/21/18 21:13 Dose: 1 ea Documented by: Nicotine (Nicoderm Cq) 21 mg TD QAM [facility] Stop: 01/13/19 08:59 Last Admin: 12/22/18 09:21 Dose: 21 mg Documented by: Nicotine Polacrilex (Nicorette 2mg) 1 piece MT UD PRN PRN Reason: Nicotine Withdrawal Stop: 01/13/19 08:20 Last Admin: 12/20/18 20:57 Dose: 1 piece Documented by: Sodium Chloride (Manuel Garcia Nasal) 1 - 2 sprays NA PRN PRN PRN Reason: Nasal Dryness/Congestion Stop: 01/13/19 02:51 Post Discharge Appointments Primary Care Physician Name Of Family Doctor: Denies Therapist Name of Therapist: Denies [facility] Miller Name of Wet Process Head Miller: [employer] [facility] Phone Number for Wet Process Head Miller: [phone] Case Management Appointment Comment: [address] [facility], [address], [place], [place] CPT Code CPT Code 21932
[2018-12-22] MEDS: LORazepam 1 MG TAB PO PRN (18:25)
[2018-12-22] MEDS: ACETAMINOPHEN 325 MG TAB PO PRN (21:34)
[2018-12-23] MEDS: NICOTINE 21 MG/24 HR TDSY TD SCH (08:51)
[2018-12-23] MEDS: HALOPERIDOL 5 MG TAB PO SCH ×2 (08:51→16:05)
--- NOTE | 2018-12-23 13:58 | Psychiatric Progress Note ---
Date of Service December 23, 2018 Impression / Recommendations Impression Pt remains more calm and less paranoid today. (1) Thought disorder: 12/14 -patient is a poor historian, but mother provides historical information. 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 For now we will collect psychosis not otherwise specified. -Patient is refusing to sign releases for previous outpatient providers in [place], and staff contacted them but they refused to provide any information without a signed release. -Medically necessary private room due to psychosis, erratic and disorganized behavior, history of violence, and aggressive behavior and threats to harm others here in the hospital. -Start haloperidol 5 mg twice daily, as patient has a previous good response to Haldol Decanoate and clozapine. Recommend medications over objection once he is on a 303 involuntary commitment and has been seen by a second physician, as he has severe psychotic symptoms which are preventing him from accurately interpreting reality, influencing his behavior, and placing him at risk of harm to both himself and others as he has been acting on his delusions, experiencing auditory and visual 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, paranoia, engaging in unsafe behaviors including driving when he does not have a license or the knowledge to do so, abusing substances, and has been threatening towards others. He demonstrates no insight into his condition, but available information indicates response to treatment with antipsychotic medications in the past. -Medically necessary private room due to psychosis, aggressive behavior, and threats to harm others. -We will need to check fasting lipid profile and glucose once he is cooperative. -Excused from groups from the time being until able to participate appropriately. -Refusing to sign releases for parents, but mother is petitioner, so can inform her of the 303 hearing. 12/15 -The patient did except a single dose of lorazepam this morning, and did seem to be somewhat more calm. He was mildly labile during his involuntary commitment hearing this morning, but managed to maintain control and was not aggressive during the hearing or upon learning that he had been retained by the fire control officer. Accordingly, we will continue to offer him lorazepam, since this medication in his case does not seem to be disinhibiting and, at least today, appeared to have helped him manage angry impulses during his involuntary commitment hearing. -The treatment team and I agree that, if possible, we would like to convince the patient to voluntarily take oral medications. Reports are that this morning he came close to taking oral haloperidol, but at the last minute declined. He is telling us that he will consistently refused medications, but our hope is that as we are able to gain his trust he will become more cooperative. We will continue to try to convince the patient to take oral haloperidol, but if this is unsuccessful we will seek two physician approval of medication over objection and give Haldol 5 mg IM BID. 12/16--tolerating Haldol, titrate to 10 mg BID. 12/18 - Continue haldol 10 mg bid - Continue discussion about LAMA - Encourage better sleep hygiene, staying awake in the day to promote sleep at night. 12/19 - Patient allowed labs to be drawn. FBS 93, FLP WNL with the exception of triglycerides of 186. Counseled to avoid fatty red meats, saturated fats. 12/20 -Again discussed the recommendations for long-acting injectable antipsychotic medication with the patient, which he initially declined because he said medications are poison. He has a meeting with his family this afternoon, and I will order the first loading dose of Haldol Decanoate 50 mg IM to be administered this afternoon, and if he is unwilling to take it, we will likely need to proceed with medications over objection tomorrow. We will try to encourage him to accept the intervention, as he reportedly did fairly well on this medication in the past. 12/21 -proceed with medications over objection: Haldol Decanoate 100 mg IM today, and Haldol 10 mg IM for refusal of oral Haldol. He will need 100-200 mg of Haldol Decanoate every 4 weeks based on his current oral dose, so will continue oral haloperidol for now until we can monitor response to the decanoate. 12/22 -the patient received Haldol Decanoate intramuscularly today, as a medication over objection. He tolerated the injection well, and today tells me that he "feels pretty good." -Today, the patient's associations seemed to be fairly tight on examination. He tends to be somewhat concrete in his thinking, but, as above, he did seem able to understand our rationale for continuing inpatient treatment at this point. 12/23 - tolerating halol dec w/o EPS or other complaints. will need to consider reduction of oral dose in approx 1 week. (2) Noncompliance with medications: 12/14 -stopped his medications 6 months ago and has decompensated since. Would benefit from a long-acting injectable, and either long-term inpatient treatment at the [facility] hospital or involuntary outpatient treatment.. 12/15 -The patient's psychosis and severely impaired insight seem to be making him and accessible to reason, regarding the essential importance of psychiatric medications. There is a past history of favorable response to haloperidol as well as to clozapine. It is agreed that the patient would in all likelihood benefit from a long-acting injectable antipsychotic medication, given his history of recurrent medication nonadherence. 12/16--currently taking PO for a few doses, is on extended involuntary commitment and clearly ongoing schizophrenia which will fail to improve for him to be able to provide self-care without ongoing treatments on inpatient unit and medications over objection. Without antipsychotic medication he is at significant risk of /serious disability and a danger to himself/others. Dr. Srinivasan could provide second opinion if he refuses PO med. 12/18- Patient refusing to consider LAMA at this time. Will continue to encourage 12/21 -patient continues to refuse Haldol Decanoate, and is now also refusing oral Haldol. We will proceed with medications over objection, as he has a diagnosis of primary thought disorder, has benefited from Haldol Decanoate in the past, he is actively delusional and is refusing medications due to psychotic thought processes, and is at risk of harm to both himself and others if he remains untreated. He has a significant history of violence tied to his delusions, and it will be important to get his symptoms adequately managed to decrease the risk of violence towards others here in the hospital. 12/22 -medication adherence is most certainly going issue with this patient. We are recommending the continued use of Depo forms of antipsychotic medications, but, in the past, the patient has simply refused to return to the office of the healthcare professional who is administering the sectionas was the case last year when, after doing reasonably well, he stopped going for treatment, and stopped excepting medications. For this reason, we are carefully looking for a supportive living setting for this patient, preferably one that has the resources necessary to assist the resistant, not adherent to patient. (3) Substance abuse: 12/14 -patient is not forthcoming, but mother reports he has been abusing alcohol, cough syrup, diphenhydramine, and likely other substances. We will monitor for withdrawal symptoms, and as his psychosis improves, will provide psychoeducation about the risks of substance abuse and recommendations for abstinence. -Avoid controlled substances given high risk of abuse/misuse/negative outcomes. 12/15 -It is recognized that the patient has an extensive history of abusing chemical substances, and it is generally agreed that use of controlled substances does pose significant risk of abuse and other negative outcomes in the long-term. However, the patient's irritability and unwillingness to cooperate with essential medications, such as haloperidol, as well as his history of physical aggression towards others, may be mitigated by the temporary use of a benzodiazepine. Today, a single dose of lorazepam seems to have been effective in helping the patient maintain composure during an involuntary commitment hearing that did not go in his favor, and staff have noticed that he has been somewhat more cooperative today, possibly in response to the dose of lorazepam. Accordingly, staff will continue to offer the patient as needed lorazepam. 12/21 -admission drug screen was positive for benzodiazepines, with significantly elevated temazepam (> 2000) and elevated oxazepam levels. Although he denied taking benzodiazepines prior to admission, he clearly was accessing them somehow. 12/22 -the patient is able to give what may be referred to as "lip service" to the concept of abstinence from drugs of abuse, but he seems to have little or no insight into the risks associated with his abuse of mood altering chemical substances, particularly within the context of his psychiatric illness. Again, a whole will be to identify an aftercare placement that we will be able to monitor him more assiduously for access to abusable chemical substances, including prescription medications, alcohol, and other drugs of abuse. (4) Antisocial personality disorder: 12/14 -extensive, lifelong history provided by adoptive mother which reveals a pervasive pattern of disregard for and violation of the rights of others which started at age 8 or earlier, failure to conform to social norms with respect to lawful behaviors as indicated by repeatedly performing acts that are grounds for arrest, deceitfulness, impulsivity and failure to plan ahead, irritability and aggressiveness, reckless disregard for safety of self and others, consistent irresponsibility, and lack of remorse. 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 -Reviewed expectations with respect to behavior on the unit. 12/15 -The patient's history of antisocial behavior is noted, and antisocial personality will not be a focus of treatment during this hospitalization. However, the record indicates that the patient's antisocial behaviors, which are lifelong, are mitigated to some extent when he is being successfully treated for his psychotic disorder. Accordingly, the approach will be to address his antisocial behaviors by focusing on addressing his psychosis. 12/22 -The patient's long-standing history of antisocial behaviorbehavior which reportedly predates the onset of his symptoms of schizophreniahave not been a focus of treatment and are unlikely to change. Careful monitoring, diversion, containment to the degree possible, to containment of the most appropriate interventions for this problem. Inventory Assets Strengths: Good physical health. Able to form alliances with certain peers. Concerned and supportive parents. Needs: Continued adherence with psychiatric medications. Sustained recovery from psychotic features. Risk Factors Assessment Male: Yes : Yes Do You Have Access To A Gun?: No Health Problems: Yes Mental Health Diagnoses: Yes Substance Use Disorders: Yes Previous Attempt: No Previous Psychiatric Hospitalization: Yes Hopelessness: No Smoker: Yes Protective Factors Assessment Temple Beliefs: No : No Responsible for Young Children: No Employed: No Stable Relationships: No Supportive Family: Yes Good Rapport with Provider: No Absence of Any Risk Factors Above: No Interval History Identifying Information APRIL GONZALEZ is a 43-year-old M who lives in [place] with his parents, has a history of a psychotic disorder (specific diagnosis not yet known, but history of multiple previous hospitalizations including a 1 year [facility] hospitalization in [place]), and was admitted on 12/14/18 03:41 on a 302 involuntary commitment for psychosis, treatment noncompliance, and erratic, unsafe behavior. He is on a 303 involuntary commitment as of 12/15/2018. Chief Complaint "I'm ok". Review of Systems Sleep Information Total Hours of Sleep: 7.5 Sleep Comments: pt on q-15 minute checks Meal Information Percent Meal Consumed - Breakfast: 100 Percent Meal Consumed - Lunch: 100 Percent Meal Consumed - Dinner: 100 Nutrition Comment: pt. sleeping denies EPS Subjective Subjective Patient was seen & assessed and interval progress reviewed with treatment team. Per available staff trend recently positive with reduced irritability and less obviously delusional thought content. Patient seems to be tolerating the Haldol Decanoate injection without difficulty and denies dystonia or akathisia today. He describes his mood is good. He is calm and converses from a prone position on his bed. He remains cooperative without acute behavioral disturbance overnight. He describes goals for himself to #1 go home, #2 get a job, #3 get a car. He is aware of upcoming commitment hearing next week. Physical Exam Psychiatric Orientation: cooperative Apperance: appropriately dressed Eye Contact: + fair eye contact Motor Behavior: no abnormal motor movements and + psychomotor retardation Speech: normal rate/rhythm/volume of speech (soft) Affect: mood congruent with affect calm mood good Thought Process: + circumstantial thought process (becomes a little animated discussing a historical medical workup) Thought Content: + delusions (no overt delusional thought content expressed) Suicidal Thoughts: denies suicidal thoughts Homicidal Thoughts: denies homicidal thoughts Hallucinations: no auditory 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 Insight: + poor insight Judgement: + limited judgement Vital Signs (Past 24 Hours) Last Vital Signs Temp 36.3 C L 12/23/18 06:56 Pulse 98 H 12/23/18 06:57 Resp 18 12/23/18 06:56 BP 110/66 12/23/18 06:57 Pulse Ox 97 12/14/18 03:38 Results & Data Current Inpatient Medications Current Inpatient Medications: Current Inpatient Medications Acetaminophen (Tylenol) 650 mg PO Q4H PRN PRN Reason: Headache or Minor Fever Stop: 01/13/19 02:51 Last Admin: 12/22/18 21:34 Dose: 650 mg Documented by: Al Hydrox/Mg Hydrox/Simethicone (Maalox) 30 ml PO Q4H PRN PRN Reason: GI Upset Stop: 01/13/19 02:51 Bismuth Subsalicylate (Kaopectate) 15 ml PO PRN PRN PRN Reason: Loose Stool Stop: 01/13/19 02:51 Haloperidol (Haldol) 10 mg PO Q4 PRN PRN Reason: psychosis or agitation Stop: 01/13/19 03:55 Haloperidol (Haldol) 10 mg PO 0900,1600 KELLY Stop: 01/20/19 09:59 Last Admin: 12/23/18 08:51 Dose: 10 mg Documented by: Haloperidol Lactate (Haldol) 10 mg IM Q4 PRN PRN Reason: psychosis or agitation Stop: 01/13/19 03:55 Haloperidol Lactate (Haldol) 10 mg IM 0900,1600 PRN PRN Reason: refusal of PO Stop: 01/20/19 09:56 Hydroxyzine HCl (Vistaril) 25 mg PO Q4H PRN PRN Reason: Anxiety Stop: 01/13/19 02:51 Last Admin: 12/22/18 18:25 Dose: 25 mg Documented by: Hydroxyzine HCl (Vistaril) 50 mg PO HSZ PRN PRN Reason: Insomnia Stop: 01/13/19 02:51 Last Admin: 12/22/18 21:13 Dose: 50 mg Documented by: Lorazepam (Ativan) 1 mg PO Q4 PRN PRN Reason: Agitation Stop: 01/13/19 03:52 Last Admin: 12/22/18 18:25 Dose: 1 mg Documented by: Lorazepam (Ativan) 1 mg IM Q4 PRN PRN Reason: Agitation Stop: 01/13/19 03:54 Magnesium Hydroxide (Milk Of Magnesia) 30 ml PO DAILY PRN PRN Reason: Heartburn Stop: 01/13/19 02:51 Menthol (Nice) 1 be BUCCAL Q2H PRN PRN Reason: Sore Throat Stop: 01/19/19 20:40 Last Admin: 12/20/18 20:52 Dose: 1 be Documented by: Miscellaneous (Remove Nicoderm Patch) 1 ea N/A DAILY@2100 [facility] Stop: 01/13/19 20:59 Last Admin: 12/22/18 21:01 Dose: Not Given Documented by: Nicotine (Nicoderm Cq) 21 mg TD QAM [facility] Stop: 01/13/19 08:59 Last Admin: 12/23/18 08:51 Dose: 21 mg Documented by: Nicotine Polacrilex (Nicorette 2mg) 1 piece MT UD PRN PRN Reason: Nicotine Withdrawal Stop: 01/13/19 08:20 Last Admin: 12/20/18 20:57 Dose: 1 piece Documented by: Sodium Chloride ([place] Nasal) 1 - 2 sprays NA PRN PRN PRN Reason: Nasal Dryness/Congestion Stop: 01/13/19 02:51 Post Discharge Appointments Primary Care Physician Name Of Family Doctor: Denies Therapist Name of Therapist: Denies Account Technician Name of Account Technician: [employer] Phone Number for Account Technician: [phone] Case Management Appointment Comment: [address], [address], [place], [place] CPT Code CPT Code 99521
[2018-12-23] MEDS: ACETAMINOPHEN 325 MG TAB PO PRN (18:21)
[2018-12-23] MEDS: LORazepam 1 MG TAB PO PRN (18:21)
[2018-12-24] MEDS: NICOTINE 21 MG/24 HR TDSY TD SCH (08:49)
[2018-12-24] MEDS: HALOPERIDOL 5 MG TAB PO SCH ×2 (08:49→15:48)
[2018-12-24] MEDS: ACETAMINOPHEN 325 MG TAB PO PRN (09:20)
[2018-12-24] MEDS: LORazepam 1 MG TAB PO PRN ×2 (09:20→21:05)
[2018-12-24] MEDS ORDERED: DOCUSATE SODIUM 100 MG CAP PO ONE (11:10)
--- NOTE | 2018-12-24 11:10 | Psychiatric Progress Note ---
Date of Service December 24, 2018 Impression / Recommendations Impression Demonstrating some impulse dyscontrol today associated with physical discomfort. Theft of batteries also noted as above. He reportedly requested Darvon for his bone disease last night and delusional thought content appears unresolved. (1) Thought disorder: 12/14 -patient is a poor historian, but mother provides historical information. 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 For now we will collect psychosis not otherwise specified. -Patient is refusing to sign releases for previous outpatient providers in [place], and staff contacted them but they refused to provide any information without a signed release. -Medically necessary private room due to psychosis, erratic and disorganized behavior, history of violence, and aggressive behavior and threats to harm others here in the hospital. -Start haloperidol 5 mg twice daily, as patient has a previous good response to Haldol Decanoate and clozapine. Recommend medications over objection once he is on a 303 involuntary commitment and has been seen by a second physician, as he has severe psychotic symptoms which are preventing him from accurately interpreting reality, influencing his behavior, and placing him at risk of harm to both himself and others as he has been acting on his delusions, experiencing auditory and visual 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, paranoia, engaging in unsafe behaviors including driving when he does not have a license or the knowledge to do so, abusing substances, and has been threatening towards others. He demonstrates no insight into his condition, but available information indicates response to treatment with antipsychotic medications in the past. -Medically necessary private room due to psychosis, aggressive behavior, and threats to harm others. -We will need to check fasting lipid profile and glucose once he is cooperative. -Excused from groups from the time being until able to participate appropriate ly. -Refusing to sign releases for parents, but mother is petitioner, so can inform her of the 303 hearing. 12/15 -The patient did except a single dose of lorazepam this morning, and did seem to be somewhat more calm. He was mildly labile during his involuntary commitment hearing this morning, but managed to maintain control and was not aggressive during the hearing or upon learning that he had been retained by the campus security officer. Accordingly, we will continue to offer him lorazepam, since this medication in his case does not seem to be disinhibiting and, at least today, appeared to have helped him manage angry impulses during his involuntary commitment hearing. -The treatment team and I agree that, if possible, we would like to convince the patient to voluntarily take oral medications. Reports are that this morning he came close to taking oral haloperidol, but at the last minute declined. He is telling us that he will consistently refused medications, but our hope is that as we are able to gain his trust he will become more cooperative. We will continue to try to convince the patient to take oral haloperidol, but if this is unsuccessful we will seek two physician approval of medication over objection and give Haldol 5 mg IM BID. 12/16--tolerating Haldol, titrate to 10 mg BID. 12/18 - Continue haldol 10 mg bid - Continue discussion about LAMA - Encourage better sleep hygiene, staying awake in the day to promote sleep at night. 12/19 - Patient allowed labs to be drawn. FBS 93, FLP WNL with the exception of triglycerides of 186. Counseled to avoid fatty red meats, saturated fats. 12/20 -Again discussed the recommendations for long-acting injectable antipsychotic medication with the patient, which he initially declined because he said medications are poison. He has a meeting with his family this afternoon, and I will order the first loading dose of Haldol Decanoate 50 mg IM to be administered this afternoon, and if he is unwilling to take it, we will likely n eed to proceed with medications over objection tomorrow. We will try to encourage him to accept the intervention, as he reportedly did fairly well on this medication in the past. 12/21 -proceed with medications over objection: Haldol Decanoate 100 mg IM today, and Haldol 10 mg IM for refusal of oral Haldol. He will need 100-200 mg of Haldol Decanoate every 4 weeks based on his current oral dose, so will continue oral haloperidol for now until we can monitor response to the decanoate. 12/22 -the patient received Haldol Decanoate intramuscularly today, as a medication over objection. He tolerated the injection well, and today tells me that he "feels pretty good." -Today, the patient's associations seemed to be fairly tight on examination. He tends to be somewhat concrete in his thinking, but, as above, he did seem able to understand our rationale for continuing inpatient treatment at this point. 12/23 - tolerating halol dec w/o EPS or other complaints. will need to consider reduction of oral dose in approx 1 week. 12/24 - pt remains less acutely behaviorally disturbed since haldol dec injection last however evidenced mild acting out when physically uncomfortable today - will add standing docusate 100mg po qhs and encourage oral hydration today for complaint of hard stool - meeting w/ county services tomorrow to explore dispo options (2) Noncompliance with medications: 12/14 -stopped his medications 6 months ago and has decompensated since. Would benefit from a long-acting injectable, and either long-term inpatient shaggy tment at the [facility] or involuntary outpatient treatment.. 12/15 -The patient's psychosis and severely impaired insight seem to be making him and accessible to reason, regarding the essential importance of psychiatric medications. There is a past history of favorable response to haloperidol as well as to clozapine. It is agreed that the patient would in all likelihood benefit from a long-acting injectable antipsychotic medication, given his history of recurrent medication nonadherence. 12/16--currently taking PO for a few doses, is on extended involuntary commitment and clearly ongoing schizophrenia which will fail to improve for him to be able to provide self-care without ongoing treatments on inpatient unit and medications over objection. Without antipsychotic medication he is at significant risk of /serious disability and a danger to himself/others. Dr. Srinivasan could provide second opinion if he refuses PO med. 12/18- Patient refusing to consider LAMA at this time. Will continue to encourage 12/21 -patient continues to refuse Haldol Decanoate, and is now also refusing oral Haldol. We will proceed with medications over objection, as he has a diagnosis of primary thought disorder, has benefited from Haldol Decanoate in the past, he is actively delusional and is refusing medications due to psychotic thought processes, and is at risk of harm to both himself and others if he remains untreated. He has a significant history of violence tied to his delusions, and it will be important to get his symptoms adequately managed to decrease the risk of violence towards others here in the hospital. 12/22 -medication adherence is most certainly going issue with this patient. We are recommending the continued use of Depo forms of antipsychotic medications, but, in the past, the patient has simply refused to return to the office of the healthcare professional who is administering the sectionas was the case last year when, after doing reasonably well, he stopped going for treatment, and stopped excepting medications. For this reason, we are carefully looking for a supportive living setting for this patient, preferably one that has the resources necessary to assist the resistant, not adherent to patient. 12/24 - remains better compliant with PO meds (3) Substance abuse: 12/14 -patient is not forthcoming, but mother reports he has been abusing alcohol, cough syrup, diphenhydramine, and likely other substances. We will monitor for withdrawal symptoms, and as his psychosis improves, will provide psychoeducation about the risks of substance abuse and recommendations for abstinence. -Avoid controlled substances given high risk of abuse/misuse/negative outcomes. 12/15 -It is recognized that the patient has an extensive history of abusing chemical substances, and it is generally agreed that use of controlled substances does pose significant risk of abuse and other negative outcomes in the long-term. However, the patient's irritability and unwillingness to cooperate with essential medications, such as haloperidol, as well as his history of physical aggression towards others, may be mitigated by the temporary use of a benzodiazepine. Today, a single dose of lorazepam seems to have been effective in helping the patient maintain composure during an involuntary commitment hearing that did not go in his favor, and staff have noticed that he has been somewhat more cooperative today, possibly in response to the dose of lorazepam. Accordingly, staff will continue to offer the patient as needed lorazepam. 12/21 -admission drug screen was positive for benzodiazepines, with significantly elevated temazepam (> 2000) and elevated oxazepam levels. Although he denied taking benzodiazepines prior to admission, he clearly was accessing them somehow. 12/22 -the patient is able to give what may be referred to as "lip service" to the concept of abstinence from drugs of abuse, but he seems to have little or no insight into the risks associated with his abuse of mood altering chemical substances, particularly within the context of his psychiatric illness. Again, a whole will be to identify an aftercare placement that we will be able to monitor him more assiduously for access to abusable chemical substances, including prescription medications, alcohol, and other drugs of abuse. (4) Antisocial personality disorder: 12/14 -extensive, lifelong history provided by adoptive mother which reveals a pervasive pattern of disregard for and violation of the rights of others which started at age 8 or earlier, failure to conform to social norms with respect to lawful behaviors as indicated by repeatedly performing acts that are grounds for arrest, deceitfulness, impulsivity and failure to plan ahead, irritability and aggressiveness, reckless disregard for safety of self and others, consistent irresponsibility, and lack of remorse. 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 -Reviewed expectations with respect to behavior on the unit. 12/15 -The patient's history of antisocial behavior is noted, and antisocial personality will not be a focus of treatment during this hospitalization. However, the record indicates that the patient's antisocial behaviors, which are lifelong, are mitigated to some extent when he is being successfully treated for his psychotic disorder. Accordingly, the approach will be to address his antisocial behaviors by focusing on addressing his psychosis. 12/22 -The patient's long-standing history of antisocial behaviorbehavior which reportedly predates the onset of his symptoms of schizophreniahave not been a focus of treatment and are unlikely to change. Careful monitoring, diversion, containment to the degree possible, to containment of the most appropriate interventions for this problem. Inventory Assets Strengths: Good physical health. Able to form alliances with certain peers. Concerned and supportive parents. Needs: Continued adherence with psychiatric medications. Sustained recovery from psychotic features. Risk Factors Assessment Male: Yes : Yes Do You Have Access To A Gun?: No Health Problems: Yes Mental Health Diagnoses: Yes Substance Use Disorders: Yes Previous Attempt: No Previous Psychiatric Hospitalization: Yes Hopelessness: No Smoker: Yes Protective Factors Assessment Congregation Beliefs: No : No Responsible for Young Children: No Employed: No Stable Relationships: No Supportive Family: Yes Good Rapport with Provider: No Absence of Any Risk Factors Above: No Interval History Identifying Information APRIL GONZALEZ is a 43-year-old M who lives in [place] with his parents, has a history of a psychotic disorder (specific diagnosis not yet known, but history of multiple previous hospitalizations including a 1 year state hospitalization in [place]), and was admitted on 12/14/18 03:41 on a 302 involuntary commitment for psychosis, treatment noncompliance, and erratic, unsafe behavior. He is on a 303 involuntary commitment as of 12/15/2018. Chief Complaint "I'm ok". Review of Systems Sleep Information Total Hours of Sleep: 4.5 Sleep Comments: pt on q-15 minute check Meal Information Percent Meal Consumed - Breakfast: 100 Percent Meal Consumed - Lunch: 100 Percent Meal Consumed - Dinner: 100 Nutrition Comment: pt. sleeping pain on defecation but denies infrequent stools or diarrhea denies injury to hand Subjective Subjective Patient was seen & assessed and interval progress reviewed with treatment team. Patient described by staff as "a little edgy." He has also demonstrated some mild social this regard in the last 24 hours such as monopolizing the television remote in the common area. I was informed after interview today that the patient had apparently stolen several batteries and hidden them in his room. On interview this morning he complains of a large caliber stool causing discomfort but denies any other specific complaints and is seen shortly after laughing and appearing quite calm in the common area. He was heard banging on the wall while in the bathroom. "I was mad when I was going to the bathroom." He otherwise describes his mood as "okay." He has meeting with [facility] scheduled tomorrow and 304 hearing scheduled for Tuesday. Physical Exam Psychiatric Orientation: alert and cooperative Apperance: appropriately dressed Eye Contact: + fair eye contact Motor Behavior: steady gait and station and no abnormal motor movements Speech: no pressured speech Affect: euthymic affect (initially somewhat anxious but quickly calm and euthymic appearing) Mood: no depressed mood ("i'm ok") Thought Process: + concrete thought process Thought Content: + delusions (continues to report bone disease) Suicidal Thoughts: denies suicidal thoughts Insight: + poor insight Judgement: + poor judgement Vital Signs (Past 24 Hours) Last Vital Signs Temp 36.5 C 12/24/18 06:45 Pulse 99 H 12/24/18 06:46 Resp 18 12/24/18 06:45 BP 112/68 12/24/18 06:46 Pulse Ox 97 12/14/18 03:38 Results & Data Current Inpatient Medications Current Inpatient Medications: Current Inpatient Medications Acetaminophen (Tylenol) 650 mg PO Q4H PRN PRN Reason: Headache or Minor Fever Stop: 01/13/19 02:51 Last Admin: 12/24/18 09:20 Dose: 650 mg Documented by: Al Hydrox/Mg Hydrox/Simethicone (Maalox) 30 ml PO Q4H PRN PRN Reason: GI Upset Stop: 01/13/19 02:51 Bismuth Subsalicylate (Kaopectate) 15 ml PO PRN PRN PRN Reason: Loose Stool Stop: 01/13/19 02:51 Haloperidol (Haldol) 10 mg PO Q4 PRN PRN Reason: psychosis or agitation Stop: 01/13/19 03:55 Haloperidol (Haldol) 10 mg PO 0900,1600 KELLY Stop: 01/20/19 09:59 Last Admin: 12/24/18 08:49 Dose: 10 mg Documented by: Haloperidol Lactate (Haldol) 10 mg IM Q4 PRN PRN Reason: psychosis or agitation Stop: 01/13/19 03:55 Haloperidol Lactate (Haldol) 10 mg IM 0900,1600 PRN PRN Reason: refusal of PO Stop: 01/20/19 09:56 Hydroxyzine HCl (Vistaril) 25 mg PO Q4H PRN PRN Reason: Anxiety Stop: 01/13/19 02:51 Last Admin: 12/22/18 18:25 Dose: 25 mg Documented by: Hydroxyzine HCl (Vistaril) 50 mg PO HSZ PRN PRN Reason: Insomnia Stop: 01/13/19 02:51 Last Admin: 12/22/18 21:13 Dose: 50 mg Documented by: Lorazepam (Ativan) 1 mg PO Q4 PRN PRN Reason: Agitation Stop: 01/13/19 03:52 Last Admin: 12/24/18 09:20 Dose: 1 mg Documented by: Lorazepam (Ativan) 1 mg IM Q4 PRN PRN Reason: Agitation Stop: 01/13/19 03:54 Magnesium Hydroxide (Milk Of Magnesia) 30 ml PO DAILY PRN PRN Reason: Heartburn Stop: 01/13/19 02:51 Menthol (Nice) 1 be BUCCAL Q2H PRN PRN Reason: Sore Throat Stop: 01/19/19 20:40 Last Admin: 12/20/18 20:52 Dose: 1 be Documented by: Miscellaneous (Remove Nicoderm Patch) 1 ea N/A DAILY@2100 KELLY Stop: 01/13/19 20:59 Last Admin: 12/23/18 21:17 Dose: Not Given Documented by: Nicotine (Nicoderm Cq) 21 mg TD [facility] Stop: 01/13/19 08:59 Last Admin: 12/24/18 08:49 Dose: 21 mg Documented by: Nicotine Polacrilex (Nicorette 2mg) 1 piece MT UD PRN PRN Reason: Nicotine Withdrawal Stop: 01/13/19 08:20 Last Admin: 12/20/18 20:57 Dose: 1 piece Documented by: Sodium Chloride ([place] Nasal) 1 - 2 sprays NA PRN PRN PRN Reason: Nasal Dryness/Congestion Stop: 01/13/19 02:51 Post Discharge Appointments Primary Care Physician Name Of Family Doctor: Denies Therapist Name of Therapist: Denies Director Child Abuse Therapy Name of Director Child Abuse Therapy: [facility] Phone Number for Director Child Abuse Therapy: [phone] Case Management Appointment Comment: [address], [address], [place], [place] CPT Code CPT Code 19197
[2018-12-24] MEDS: DOCUSATE SODIUM 100 MG CAP PO SCH (21:03)
[2018-12-25] MEDS: HALOPERIDOL 5 MG TAB PO SCH ×2 (08:01→16:06)
[2018-12-25] MEDS: NICOTINE 21 MG/24 HR TDSY TD SCH (08:02)
[2018-12-25] MEDS: HALOPERIDOL 5 MG TAB PO PRN (12:21)
[2018-12-25] MEDS: LORazepam 1 MG TAB PO PRN (12:21)
[2018-12-25] MEDS: ACETAMINOPHEN 325 MG TAB PO PRN (14:24)
--- NOTE | 2018-12-25 15:02 | Psychiatric Progress Note ---
Date of Service December 25, 2018 Impression / Recommendations Impression The patient continues to be delusional (believes he doesn't have a mental illness) and is more irritable today. He is not committing to taking meds as an OP but is interested in the possibility of moving to a CRR rather than going to the [facility] hospital. He has been started on haldol decanoate, but even this will need his cooperation as an OP, which he is questionable about today. Will continue to encourage prns and we will work with the county regarding disposition moving forward. (1) Thought disorder: 12/14 -patient is a poor historian, but mother provides historical information. 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 For now we will collect psychosis not otherwise specified. -Patient is refusing to sign releases for previous outpatient providers in [place], and staff contacted them but they refused to provide any information without a signed release. -Medically necessary private room due to psychosis, erratic and disorganized behavior, history of violence, and aggressive behavior and threats to harm others here in the hospital. -Start haloperidol 5 mg twice daily, as patient has a previous good response to Haldol Decanoate and clozapine. Recommend medications over objection once he is on a 303 involuntary commitment and has been seen by a second physician, as he has severe psychotic symptoms which are preventing him from accurately interpreting reality, influencing his behavior, and placing him at risk of harm to both himself and others as he has been acting on his delusions, experiencing auditory and visual 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, paranoia, engaging in unsafe behaviors including driving when he does not have a license or the knowledge to do so, abusing substances, and has been threatening towards others. He demonstrates no insight into his condition, but available information indicates response to treatment with antipsychotic medications in the past. -Medically necessary private room due to psychosis, aggressive behavior, and threats to harm others. -We will need to check fasting lipid profile and glucose once he is cooperative. -Excused from groups from the time being until able to participate appropriately. -Refusing to sign releases for parents, but mother is petitioner, so can inform her of the 303 hearing. 12/15 -The patient did except a single dose of lorazepam this morning, and did seem to be somewhat more calm. He was mildly labile during his involuntary commitment hearing this morning, but managed to maintain control and was not aggressive during the hearing or upon learning that he had been retained by the hearing examiner. Accordingly, we will continue to offer him lorazepam, since this medication in his case does not seem to be disinhibiting and, at least today, appeared to have helped him manage angry impulses during his involuntary commitment hearing. -The treatment team and I agree that, if possible, we would like to convince the patient to voluntarily take oral medications. Reports are that this morning he came close to taking oral haloperidol, but at the last minute declined. He is telling us that he will consistently refused medications, but our hope is that as we are able to gain his trust he will become more cooperative. We will continue to try to convince the patient to take oral haloperidol, but if this is unsuccessful we will seek two physician approval of medication over objection and give Haldol 5 mg IM BID. 12/16--tolerating Haldol, titrate to 10 mg BID. 12/18 - Continue haldol 10 mg bid - Continue discussion about LAMA - Encourage better sleep hygiene, staying awake in the day to promote sleep at night. 12/19 - Patient allowed labs to be drawn. FBS 93, FLP WNL with the exception of triglycerides of 186. Counseled to avoid fatty red meats, saturated fats. 12/20 -Again discussed the recommendations for long-acting injectable antipsychotic medication with the patient, which he initially declined because he said medications are poison. He has a meeting with his family this afternoon, and I will order the first loading dose of Haldol Decanoate 50 mg IM to be administered this afternoon, and if he is unwilling to take it, we will likely need to proceed with medications over objection tomorrow. We will try to encourage him to accept the intervention, as he reportedly did fairly well on this medication in the past. 12/21 -proceed with medications over objection: Haldol Decanoate 100 mg IM today, and Haldol 10 mg IM for refusal of oral Haldol. He will need 100-200 mg of Haldol Decanoate every 4 weeks based on his current oral dose, so will continue oral haloperidol for now until we can monitor response to the decanoate. 12/22 -the patient received Haldol Decanoate intramuscularly today, as a medication over objection. He tolerated the injection well, and today tells me that he "feels pretty good." -Today, the patient's associations seemed to be fairly tight on examination. He tends to be somewhat concrete in his thinking, but, as above, he did seem able to understand our rationale for continuing inpatient treatment at this point. 12/23 - tolerating halol dec w/o EPS or other complaints. will need to consider reduction of oral dose in approx 1 week. 12/24 - pt remains less acutely behaviorally disturbed since haldol dec injection last however evidenced mild acting out when physically uncomfortable today - will add standing docusate 100mg po qhs and encourage oral hydration today for complaint of hard stool - meeting / [facility] services tomorrow to explore dispo options 12/25 - Increase in irritability - Planning meeting held with [facility]: possibility for CRR vs [facility] hospital - Continue current meds and encourage prns Present on Admission?: Yes (2) Noncompliance with medications: 12/14 -stopped his medications 6 months ago and has decompensated since. Wo uld benefit from a long-acting injectable, and either long-term inpatient treatment at the [facility] or involuntary outpatient treatment.. 12/15 -The patient's psychosis and severely impaired insight seem to be making him and accessible to reason, regarding the essential importance of psychiatric medications. There is a past history of favorable response to haloperidol as well as to clozapine. It is agreed that the patient would in all likelihood benefit from a long-acting injectable antipsychotic medication, given his history of recurrent medication nonadherence. 12/16--currently taking PO for a few doses, is on extended involuntary commitment and clearly ongoing schizophrenia which will fail to improve for him to be able to provide self-care without ongoing treatments on inpatient unit and medications over objection. Without antipsychotic medication he is at significant risk of /serious disability and a danger to himself/others. Dr. Srinivasan could provide second opinion if he refuses PO med. 12/18- Patient refusing to consider LAMA at this time. Will continue to encourage 12/21 -patient continues to refuse Haldol Decanoate, and is now also refusing oral Haldol. We will proceed with medications over objection, as he has a diagnosis of primary thought disorder, has benefited from Haldol Decanoate in the past, he is actively delusional and is refusing medications due to psychotic thought processes, and is at risk of harm to both himself and others if he remains untreated. He has a significant history of violence tied to his delusions, and it will be important to get his symptoms adequately managed to decrease the risk of violence towards others here in the hospital. 12/22 -medication adherence is most certainly going issue with this patient. We are recommending the continued use of Depo forms of antipsychotic medications, but, in the past, the patient has simply refused to return to the office of the healthcare professional who is administering the sectionas was the case last year when, after doing reasonably well, he stopped going for treatment, and stopped excepting medications. For this reason, we are carefully looking for a supportive living setting for this patient, preferably one that has the resources necessary to assist the resistant, not adherent to patient. 12/24 - remains better compliant with PO meds 12/25 - Takes meds when he thinks he needs them, but voiced some question about taking anything regularly after discharge. (3) Substance abuse: 12/14 -patient is not forthcoming, but mother reports he has been abusing alcohol, cough syrup, diphenhydramine, and likely other substances. We will monitor for withdrawal symptoms, and as his psychosis improves, will provide psychoeducation about the risks of substance abuse and recommendations for abstinence. -Avoid controlled substances given high risk of abuse/misuse/negative outcomes. 12/15 -It is recognized that the patient has an extensive history of abusing chemical substances, and it is generally agreed that use of controlled substances does pose significant risk of abuse and other negative outcomes in the long-term. However, the patient's irritability and unwillingness to cooperate with essential medications, such as haloperidol, as well as his history of physical aggression towards others, may be mitigated by the temporary use of a benzodiazepine. Today, a single dose of lorazepam seems to have been effective in helping the patient maintain composure during an involuntary commitment hearing that did not go in his favor, and staff have noticed that he has been somewhat more cooperative today, possibly in response to the dose of lorazepam. Accordingly, staff will continue to offer the patient as needed lorazepam. 12/21 -admission drug screen was positive for benzodiazepines, with significantly elevated temazepam (> 2000) and elevated oxazepam levels. Although he denied taking benzodiazepines prior to admission, he clearly was accessing them somehow. 12/22 -the patient is able to give what may be referred to as "lip service" to the concept of abstinence from drugs of abuse, but he seems to have little or no insight into the risks associated with his abuse of mood altering chemical substances, particularly within the context of his psychiatric illness. Again, a whole will be to identify an aftercare placement that we will be able to monitor him more assiduously for access to abusable chemical substances, including prescription medications, alcohol, and other drugs of abuse. (4) Antisocial personality disorder: 12/14 -extensive, lifelong history provided by adoptive mother which reveals a pervasive pattern of disregard for and violation of the rights of others which started at age 8 or earlier, failure to conform to social norms with respect to lawful behaviors as indicated by repeatedly performing acts that are grounds for arrest, deceitfulness, impulsivity and failure to plan ahead, irritability and aggressiveness, reckless disregard for safety of self and others, consistent irresponsibility, and lack of remorse. 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 -Reviewed expectations with respect to behavior on the unit. 12/15 -The patient's history of antisocial behavior is noted, and antisocial personality will not be a focus of treatment during this hospitalization. However, the record indicates that the patient's antisocial behaviors, which are lifelong, are mitigated to some extent when he is being successfully treated for his psychotic disorder. Accordingly, the approach will be to address his antisocial behaviors by focusing on addressing his psychosis. 12/22 -The patient's long-standing history of antisocial behaviorbehavior which reportedly predates the onset of his symptoms of schizophreniahave not been a focus of treatment and are unlikely to change. Careful monitoring, diversion, containment to the degree possible, to containment of the most appropriate interventions for this problem. Inventory Assets Strengths: Good physical health. Able to form alliances with certain peers. Concerned and supportive parents. Needs: Continued adherence with psychiatric medications. Sustained recovery from psychotic features. Risk Factors Assessment Male: Yes : Yes Do You Have Access To A Gun?: No Health Problems: Yes Mental Health Diagnoses: Yes Substance Use Disorders: Yes Previous Attempt: No Previous Psychiatric Hospitalization: Yes Hopelessness: No Smoker: Yes Protective Factors Assessment Islam Beliefs: No : No Responsible for Young Children: No Employed: No Stable Relationships: No Supportive Family: Yes Good Rapport with Provider: No Absence of Any Risk Factors Above: No Interval History Identifying Information APRIL GONZALEZ is a 43-year-old M who lives in [place] with his parents, has a history of a psychotic disorder (specific diagnosis not yet known, but history of multiple previous hospitalizations including a 1 year state hospitalization in [place]), and was admitted on 12/14/18 03:41 on a 302 involuntary commitment for psychosis, treatment noncompliance, and erratic, unsafe behavior. He is on a 303 involuntary commitment as of 12/15/2018. Chief Complaint "I don't think I have a mental illness.". Review of Systems Sleep Information Total Hours of Sleep: 4.5 Sleep Comments: pt given vistaril x2 per rn. pt on q-15 minute checks. Meal Information Percent Meal Consumed - Breakfast: 100 Percent Meal Consumed - Lunch: 100 Percent Meal Consumed - Dinner: 100 Nutrition Comment: pt. sleeping Subjective Subjective Patient was seen & assessed and interval progress reviewed with Treatment Team. Patient had a meeting with his mother and step father as well as the [facility] representatives to discuss treatment moving forward. Don reports that they talked about the possibility of moving to a CRR where he could live by himself with some supervision which he thinks "would be alright". In terms of taking medications, he will not commit to taking any regularly "I'll have to see how they make me feel.". I remind him that being off of his meds contributed to the need for this hospitalization, but this irritates him and he says that he doesn't have a mental illness, that this is just someone's opinion, and then deteriorates into a conversation that I cannot follow as his statements are di sconnected and make no sense. He continues to report having "pain all over". He took a prn of haldol and ativan earlier reportedly for anxiety, but he is reluctant to talk about this, and says that the meds were not necessarily helpful. He denies SI/HI, denies aud/vis 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. Denies feeling paranoid or unsafe. Physical Exam Psychiatric Orientation: alert and + guarded Apperance: appropriately dressed and appropriately groomed Eye Contact: + fair eye contact Motor Behavior: steady gait and station restless shaking of his legs Speech: normal rate/rhythm/volume of speech Affect: + irritable affect Mood: + irritable mood Thought Process: + thought process not clear or coherent Thought Content: + delusions Suicidal Thoughts: denies suicidal thoughts Homicidal Thoughts: denies homicidal thoughts Hallucinations: no auditory 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 and no visual 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 Cognition: recent memory grossly intact and language grossly intact Estimated Intelligence: consistent with education level Insight: + impaired insight Judgement: + impaired judgement Vital Signs (Past 24 Hours) Last Vital Signs Temp 36.6 C 12/25/18 06:48 Pulse 92 H 12/25/18 06:49 Resp 18 12/25/18 06:48 BP 118/82 12/25/18 06:49 Pulse Ox 97 12/14/18 03:38 Results & Data Current Inpatient Medications Current Inpatient Medications: Current Inpatient Medications Acetaminophen (Tylenol) 650 mg PO Q4H PRN PRN Reason: Headache or Minor Fever Stop: 01/13/19 02:51 Last Admin: 12/25/18 14:24 Dose: 650 mg Documented by: Al Hydrox/Mg Hydrox/Simethicone (Maalox) 30 ml PO Q4H PRN PRN Reason: GI Upset Stop: 01/13/19 02:51 Bismuth Subsalicylate (Kaopectate) 15 ml PO PRN PRN PRN Reason: Loose Stool Stop: 01/13/19 02:51 Docusate Sodium (Colace) 100 mg PO HS [facility] Stop: 01/23/19 21:59 Last Admin: 12/24/18 21:03 Dose: 100 mg Documented by: Haloperidol (Haldol) 10 mg PO Q4 PRN PRN Reason: psychosis or agitation Stop: 01/13/19 03:55 Last Admin: 12/25/18 12:21 Dose: 10 mg Documented by: Haloperidol (Haldol) 10 mg PO 0900,1600 KELLY Stop: 01/20/19 09:59 Last Admin: 12/25/18 08:01 Dose: 10 mg Documented by: Haloperidol Lactate (Haldol) 10 mg IM Q4 PRN PRN Reason: psychosis or agitation Stop: 01/13/19 03:55 Haloperidol Lactate (Haldol) 10 mg IM 0900,1600 PRN PRN Reason: refusal of PO Stop: 01/20/19 09:56 Hydroxyzine HCl (Vistaril) 25 mg PO Q4H PRN PRN Reason: Anxiety Stop: 01/13/19 02:51 Last Admin: 12/22/18 18:25 Dose: 25 mg Documented by: Hydroxyzine HCl (Vistaril) 50 mg PO HSZ PRN PRN Reason: Insomnia Stop: 01/13/19 02:51 Last Admin: 12/24/18 21:32 Dose: 50 mg Documented by: Lorazepam (Ativan) 1 mg PO Q4 PRN PRN Reason: Agitation Stop: 01/13/19 03:52 Last Admin: 12/25/18 12:21 Dose: 1 mg Documented by: Lorazepam (Ativan) 1 mg IM Q4 PRN PRN Reason: Agitation Stop: 01/13/19 03:54 Magnesium Hydroxide (Milk Of Magnesia) 30 ml PO DAILY PRN PRN Reason: Heartburn Stop: 01/13/19 02:51 Menthol (Nice) 1 be BUCCAL Q2H PRN PRN Reason: Sore Throat Stop: 01/19/19 20:40 Last Admin: 12/20/18 20:52 Dose: 1 be Documented by: Miscellaneous (Remove Nicoderm Patch) 1 ea N/A DAILY@2100 [facility] Stop: 01/13/19 20:59 Last Admin: 12/24/18 21:05 Dose: 1 ea Documented by: Nicotine (Nicoderm Cq) 21 mg TD QAM [facility] Stop: 01/13/19 08:59 Last Admin: 12/25/18 08:02 Dose: 21 mg Documented by: Nicotine Polacrilex (Nicorette 2mg) 1 piece MT UD PRN PRN Reason: Nicotine Withdrawal Stop: 01/13/19 08:20 Last Admin: 12/20/18 20:57 Dose: 1 piece Documented by: Sodium Chloride (Eddy Nasal) 1 - 2 sprays NA PRN PRN PRN Reason: Nasal Dryness/Congestion Stop: 01/13/19 02:51 Post Discharge Appointments Primary Care Physician Name Of Family Doctor: Denies Therapist Name of Therapist: Denies [facility] Name of [facility]: [facility] Phone Number for [facility]: [phone] Case Management Appointment Comment: [address], [address], [place], [place] CPT Code CPT Code 14150
[2018-12-25] MEDS: DOCUSATE SODIUM 100 MG CAP PO SCH (21:04)
[2018-12-26] MEDS: HALOPERIDOL 5 MG TAB PO SCH ×2 (07:30→16:20)
[2018-12-26] MEDS: NICOTINE 21 MG/24 HR TDSY TD SCH (07:30)
[2018-12-26] MEDS: LORazepam 1 MG TAB PO PRN ×3 (07:31→18:44)
[2018-12-26] MEDS: ACETAMINOPHEN 325 MG TAB PO PRN ×2 (07:34→16:23)
--- NOTE | 2018-12-26 10:15 | Psychiatric Progress Note ---
Date of Service December 26, 2018 Impression / Recommendations Impression Patient continues to be delusional (believes he doesn't have a mental illness) and is more irritable today. He is not committing to taking meds as an OP but is interested in the possibility of moving to a CRR rather than going to the [facility]. He has been started on haldol decanoate, but even this will need his cooperation as an OP, which he is questionable about today. Will continue to encourage prns and we will work with the [facility] regarding disposition moving forward. Patient with ongoing delusions re: presence of illness (believes he does not have a mental health and believes he has a bone disease) with occasional seeking behavior for pain meds. He has shown slow improvement since admission, with no further attempts of assault of medical staff, but does have multiple PRN medication use to control anxiety and mood. He continues to have partial compliance with scheduled medications, often deferring administration until staff is able to encourage taking medication for improved symptom management. As confirmed during treatment plan meeting and reaffirned during hearing during which petition for 304 was granted, patient is not safe for return to outpatient at this time, and would benefit for ongoing inpatient management. Referral will be placed at [facility]. In interim, will continue current medication regimen. (1) Thought disorder: 12/14 -patient is a poor historian, but mother provides historical information. 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 For now we will collect psychosis not otherwise specified. -Patient is refusing to sign releases for previous outpatient providers in [place], and staff contacted them but they refused to provide any information without a signed release. -Medically necessary private room due to psychosis, erratic and disorganized behavior, history of violence, and aggressive behavior and threats to harm others here in the hospital. -Start haloperidol 5 mg twice daily, as patient has a previous good response to Haldol Decanoate and clozapine. Recommend medications over objection once he is on a 303 involuntary commitment and has been seen by a second physician, as he has severe psychotic symptoms which are preventing him from accurately interpreting reality, influencing his behavior, and placing him at risk of harm to both himself and others as he has been acting on his delusions, experiencing auditory and visual 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, paranoia, engaging in unsafe behaviors including driving when he does not have a license or the knowledge to do so, abusing substances, and has been threatening towards others. He demonstrates no insight into his condition, but available information indicates response to treatment with antipsychotic medications in the past. -Medically necessary private room due to psychosis, aggressive behavior, and threats to harm others. -We will need to check fasting lipid profile and glucose once he is cooperative. -Excused from groups from the time being until able to participate appropriately. -Refusing to sign releases for parents, but mother is petitioner, so can inform her of the 303 hearing. 12/15 -The patient did except a single dose of lorazepam this morning, and did seem to be somewhat more calm. He was mildly labile during his involuntary commitment hearing this morning, but managed to maintain control and was not aggressive during the hearing or upon learning that he had been retained by the hearing examiner. Accordingly, we will continue to offer him lorazepam, since this medication in his case does not seem to be disinhibiting and, at least today, appeared to have helped him manage angry impulses during his involuntary commitment hearing. -The treatment team and I agree that, if possible, we would like to convince the patient to voluntarily take oral medications. Reports are that this morning he came close to taking oral haloperidol, but at the last minute declined. He is telling us that he will consistently refused medications, but our hope is that as we are able to gain his trust he will become more cooperative. We will continue to try to convince the patient to take oral haloperidol, but if this is unsuccessful we will seek two physician approval of medication over objection and give Haldol 5 mg IM BID. 12/16--tolerating Haldol, titrate to 10 mg BID. 12/18 - Continue haldol 10 mg bid - Continue discussion about LAMA - Encourage better sleep hygiene, staying awake in the day to promote sleep at night. 12/19 - Patient allowed labs to be drawn. FBS 93, FLP WNL with the exception of triglycerides of 186. Counseled to avoid fatty red meats, saturated fats. 12/20 -Again discussed the recommendations for long-acting injectable antipsychotic medication with the patient, which he initially declined because he said medications are poison. He has a meeting with his family this afternoon, and I will order the first loading dose of Haldol Decanoate 50 mg IM to be administered this afternoon, and if he is unwilling to take it, we will likely need to proceed with medications over objection tomorrow. We will try to encourage him to accept the intervention, as he reportedly did fairly well on this medication in the past. 12/21 -proceed with medications over objection: Haldol Decanoate 100 mg IM today, and Haldol 10 mg IM for refusal of oral Haldol. He will need 100-200 mg of Haldol Decanoate every 4 weeks based on his current oral dose, so will continue oral haloperidol for now until we can monitor response to the decanoate. 12/22 -the patient received Haldol Decanoate intramuscularly today, as a medication over objection. He tolerated the injection well, and today tells me that he "feels pretty good." -Today, the patient's associations seemed to be fairly tight on examination. He tends to be somewhat concrete in his thinking, but, as above, he did seem able to understand our rationale for continuing inpatient treatment at this point. 12/23 - tolerating halol dec w/o EPS or other complaints. will need to consider reduction of oral dose in approx 1 week. 12/24 - pt remains less acutely behaviorally disturbed since Haldol dec injection last however evidenced mild acting out when physically uncomfortable today - will add standing docusate 100mg po qhs and encourage oral hydration today for complaint of hard stool - meeting w/ [facility] services tomorrow to explore dispo options 12/25 - Increase in irritability - Planning meeting held with [facility]: possibility for CRR vs state hospital - Continue current meds and encourage prns 12/26 - 304 granted. Meeting with [facility], patient and parents held yesterday: parents confirmed he cannot return home. Treatment team and [facility] recommends state hospitalization, as patient not appropriate for CRR placement due to severity of symptoms and unwillingness for outpatient treatment and medications. (2) Noncompliance with medications: 12/14 -stopped his medications 6 months ago and has decompensated since. Would benefit from a long-acting injectable, and either long-term inpatient treatment at the [facility] or involuntary outpatient treatment.. 12/15 -The patient's psychosis and severely impaired insight seem to be making him and accessible to reason, regarding the essential importance of psychiatric medications. There is a past history of favorable response to haloperidol as well as to clozapine. It is agreed that the patient would in all likelihood benefit from a long-acting injectable antipsychotic medication, given his history of recurrent medication nonadherence. 12/16--currently taking PO for a few doses, is on extended involuntary commitment and clearly ongoing schizophrenia which will fail to improve for him to be able to provide self-care without ongoing treatments on inpatient unit and medications over objection. Without antipsychotic medication he is at sign ificant risk of /serious disability and a danger to himself/others. Dr. Srinivasan could provide second opinion if he refuses PO med. 12/18- Patient refusing to consider LAMA at this time. Will continue to encourage 12/21 -patient continues to refuse Haldol Decanoate, and is now also refusing oral Haldol. We will proceed with medications over objection, as he has a diagnosis of primary thought disorder, has benefited from Haldol Decanoate in the past, he is actively delusional and is refusing medications due to psychotic thought processes, and is at risk of harm to both himself and others if he remains untreated. He has a significant history of violence tied to his delusions, and it will be important to get his symptoms adequately managed to decrease the risk of violence towards others here in the hospital. 12/22 -medication adherence is most certainly going issue with this patient. We are recommending the continued use of Depo forms of antipsychotic medications, but, in the past, the patient has simply refused to return to the office of the healthcare professional who is administering the sectionas was the case last year when, after doing reasonably well, he stopped going for treatment, and stopped excepting medications. For this reason, we are carefully looking for a supportive living setting for this patient, preferably one that has the resources necessary to assist the resistant, not adherent to patient. 12/24 - remains better compliant with PO meds 12/25 - Takes meds when he thinks he needs them, but voiced some question about taking anything regularly after discharge. (3) Substance abuse: 12/14 -patient is not forthcoming, but mother reports he has been abusing alcohol, cough syrup, diphenhydramine, and likely other substances. We will monitor for withdrawal symptoms, and as his psychosis improves, will provide psychoeducation about the risks of substance abuse and recommendations for abstinence. -Avoid controlled substances given high risk of abuse/misuse/negative outcomes. 12/15 -It is recognized that the patient has an extensive history of abusing chemical substances, and it is generally agreed that use of controlled substances does pose significant risk of abuse and other negative outcomes in the long-term. However, the patient's irritability and unwillingness to cooperate with essential medications, such as haloperidol, as well as his history of physical aggression towards others, may be mitigated by the temporary use of a benzodiazepine. Today, a single dose of lorazepam seems to have been effective in helping the patient maintain composure during an involuntary commitment hearing that did not go in his favor, and staff have noticed that he has been somewhat more cooperative today, possibly in response to the dose of lorazepam. Accordingly, staff will continue to offer the patient as needed lorazepam. 12/21 -admission drug screen was positive for benzodiazepines, with significantly elevated temazepam (> 2000) and elevated oxazepam levels. Although he denied taking benzodiazepines prior to admission, he clearly was accessing them somehow. 12/22 -the patient is able to give what may be referred to as "lip service" to the concept of abstinence from drugs of abuse, but he seems to have little or no insight into the risks associated with his abuse of mood altering chemical substances, particularly within the context of his psychiatric illness. Again, a whole will be to identify an aftercare placement that we will be able to monitor him more assiduously for access to abusable chemical substances, including prescription medications, alcohol, and other drugs of abuse. (4) Antisocial personality disorder: 12/14 -extensive, lifelong history provided by adoptive mother which reveals a pervasive pattern of disregard for and violation of the rights of others which started at age 8 or earlier, failure to conform to social norms with respect to lawful behaviors as indicated by repeatedly performing acts that are grounds for arrest, deceitfulness, impulsivity and failure to plan ahead, irritability and aggressiveness, reckless disregard for safety of self and others, consistent irresponsibility, and lack of remorse. 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 -Reviewed expectations with respect to behavior on the unit. 12/15 -The patient's history of antisocial behavior is noted, and antisocial personality will not be a focus of treatment during this hospitalization. However, the record indicates that the patient's antisocial behaviors, which are lifelong, are mitigated to some extent when he is being successfully treated for his psychotic disorder. Accordingly, the approach will be to address his antisocial behaviors by focusing on addressing his psychosis. 12/22 -The patient's long-standing history of antisocial behaviorbehavior which reportedly predates the onset of his symptoms of schizophreniahave not been a focus of treatment and are unlikely to change. Careful monitoring, diversion, containment to the degree possible, to containment of the most appropriate interventions for this problem. Inventory Assets Strengths: Good physical health. Able to form alliances with certain peers. Concerned and supportive parents. Needs: Continued adherence with psychiatric medications. Sustained recovery from psychotic features. Risk Factors Assessment Male: Yes : Yes Do You Have Access To A Gun?: No Health Problems: Yes Mental Health Diagnoses: Yes Substance Use Disorders: Yes Previous Attempt: No Previous Psychiatric Hospitalization: Yes Hopelessness: No Smoker: Yes Protective Factors Assessment Alevism Beliefs: No : No Responsible for Young Children: No Employed: No Stable Relationships: No Supportive Family: Yes Good Rapport with Provider: No Absence of Any Risk Factors Above: No Interval History Identifying Information APRIL GONZALEZ is a 43-year-old M who lives in [place] with his parents, has a history of a psychotic disorder (specific diagnosis not yet known, but history of multiple previous hospitalizations including a 1 year state hospitalization in [place]), and was admitted on 12/14/18 03:41 on a 302 involuntary commitment for psychosis, treatment noncompliance, and erratic, unsafe behavior. He is on a 304 involuntary commitment as of today 12/26/2018. Chief Complaint "I don't think I need to be here." Review of Systems Sleep Information Total Hours of Sleep: 6 Sleep Comments: pt given vistaril per rn. pt on q-15 minute checks Meal Information Percent Meal Consumed - Breakfast: 100 Percent Meal Consumed - Lunch: 100 Percent Meal Consumed - Dinner: 100 Nutrition Comment: pt. sleeping Subjective Subjective Patient was seen & assessed and interval progress reviewed with nursing and social work. Nursing notes that patient has been requesting Ativan for anxiety and Tylenol for generalized body pain. They also note he has been withdrawn since yesterday evening. Team discussion this morning summarized treatment team meeting which was held 12/25/18, involving the patient, his mother Nir, stepfather Tyron, and multiple individuals from [facility]. CRR programming criteria were discussed. Despite initial agreement, patient eventually stated that he would not comply with programming, prompting the [facility]'s concerns that neither the patient or his potential house mates would be safe with the patient living in that environment. Discussion of possible referral to [facility] made the patient increasingly more physically and verbally agitated, and ultimately, the patient left the meeting and did not return. Concurrence with the parties remaining was that [facility] admission due to safety risks associated with April's return to the community would be ideal, especially as Nir and Tyron are unwilling to have him return home. At this morning's hearing, patient was unable to contain his frustration as details of his mental health prior to and since admission were discussed, mumbling and disagreeing with multiple facts that were discussed. In the end, on the record, he continued to deny having any mental illness and refused strict compliance with outpatient management, stating "I'll see how how the medicine feels, I don't think I need it, but I'll see" causing the rehabilitation coordinator to hernán the petition. Patient left the hearing, obviously upset. Attempts to engage the patient in conversation later in the day were futile, as the patient lay in bed with his head in his arms, refusing to respond. Subsequent attempt to engage the patient in the common area while others were in group therapy, was more successful. Patient still upset, but unable to pinpoint causation as this morning's hearing. States mood is ok, but "I'm sad that I'm here." With ongoing conversation, patient became increasingly aggravated, with arms flailing. He stated "no one is fing managing my pain. No one here knows how to fing assess me and I don't know what they are doing for me. I would be better off lying in bed at home where I can fing take myself. Lying in bed makes my pain better. These meds don't help." Patient did calm down with a few minutes of silence. But closed off by stating frustration and desire to rainer everyone for keeping him here. Physical Exam Mental Examination Large, tall male appearing older than his stated age. Casually dressed, adequate grooming. Sitting in common area earlier, and later lying in bed, in no acute distress. Original assessment: Intermittent/fleeting eye contact. No abnormal movements. Attempted cooperation during hearing, non-cooperative with subsequent initial assessment, improved co-operation thereafter. Overall, a shree bower historian, giving very short, vague answers during hearing. Speech is minimal, monotone. Mood is "ok," affect is blunted. Thoughts are goal- directed, denies SI and HI, but endorses paranoia particularly regarding medication. Limited ability to rationally manipulate information, for example insisting that he will be able to function outside of the hospital independently, despite being informed his family that they will not allow him to return to their home, and patient having no financial savings or means to otherwise support himself at present. Alert and oriented. Insight and judgment impaired. Vital Signs (Past 24 Hours) Last Vital Signs Temp 36.4 C L 12/26/18 06:42 Pulse 101 H 12/26/18 06:43 Resp 18 12/26/18 06:42 BP 109/75 12/26/18 06:43 Pulse Ox 97 12/14/18 03:38 Results & Data Current Inpatient Medications Current Inpatient Medications: Current Inpatient Medications Acetaminophen (Tylenol) 650 mg PO Q4H PRN PRN Reason: Headache or Minor Fever Stop: 01/13/19 02:51 Last Admin: 12/26/18 07:34 Dose: 650 mg Documented by: Al Hydrox/Mg Hydrox/Simethicone (Maalox) 30 ml PO Q4H PRN PRN Reason: GI Upset Stop: 01/13/19 02:51 Bismuth Subsalicylate (Kaopectate) 15 ml PO PRN PRN PRN Reason: Loose Stool Stop: 01/13/19 02:51 Docusate Sodium (Colace) 100 mg PO HS KELLY Stop: 01/23/19 21:59 Last Admin: 12/25/18 21:04 Dose: Not Given Documented by: Haloperidol (Haldol) 10 mg PO Q4 PRN PRN Reason: psychosis or agitation Stop: 01/13/19 03:55 Last Admin: 12/25/18 12:21 Dose: 10 mg Documented by: Haloperidol (Haldol) 10 mg PO 0900,1600 KELLY Stop: 01/20/19 09:59 Last Admin: 12/26/18 07:30 Dose: 10 mg Documented by: Haloperidol Lactate (Haldol) 10 mg IM Q4 PRN PRN Reason: psychosis or agitation Stop: 01/13/19 03:55 Haloperidol Lactate (Haldol) 10 mg IM 0900,1600 PRN PRN Reason: refusal of PO Stop: 01/20/19 09:56 Hydroxyzine HCl (Vistaril) 25 mg PO Q4H PRN PRN Reason: Anxiety Stop: 01/13/19 02:51 Last Admin: 12/22/18 18:25 Dose: 25 mg Documented by: Hydroxyzine HCl (Vistaril) 50 mg PO HSZ PRN PRN Reason: Insomnia Stop: 01/13/19 02:51 Last Admin: 12/25/18 22:55 Dose: 50 mg Documented by: Lorazepam (Ativan) 1 mg PO Q4 PRN PRN Reason: Agitation Stop: 01/13/19 03:52 Last Admin: 12/26/18 07:31 Dose: 1 mg Documented by: Lorazepam (Ativan) 1 mg IM Q4 PRN PRN Reason: Agitation Stop: 01/13/19 03:54 Magnesium Hydroxide (Milk Of Magnesia) 30 ml PO DAILY PRN PRN Reason: Heartburn Stop: 01/13/19 02:51 Menthol (Nice) 1 be BUCCAL Q2H PRN PRN Reason: Sore Throat Stop: 01/19/19 20:40 Last Admin: 12/20/18 20:52 Dose: 1 be Documented by: Miscellaneous (Remove Nicoderm Patch) 1 ea N/A DAILY@2100 [facility] Stop: 01/13/19 20:59 Last Admin: 12/25/18 21:05 Dose: Not Given Documented by: Nicotine (Nicoderm Cq) 21 mg TD QAM [facility] Stop: 01/13/19 08:59 Last Admin: 12/26/18 07:30 Dose: 21 mg Documented by: Nicotine Polacrilex (Nicorette 2mg) 1 piece MT UD PRN PRN Reason: Nicotine Withdrawal Stop: 01/13/19 08:20 Last Admin: 12/20/18 20:57 Dose: 1 piece Documented by: Sodium Chloride (Woodruff Nasal) 1 - 2 sprays NA PRN PRN PRN Reason: Nasal Dryness/Congestion Stop: 01/13/19 02:51 Post Discharge Appointments Primary Care Physician Name Of Family Doctor: Denies Therapist Name of Therapist: Denies Job Placement Counselor Name of Job Placement Counselor: [employer] Phone Number for Job Placement Counselor: [phone] Case Management Appointment Comment: [address], [address], [place], [place] CPT Code CPT Code 32379 Resident Activity Tracking Resident Involvement: Resident Care Provided Care Provided: Adult Hospital Medicine
[2018-12-26] MEDS: NICOTINE POLACRILEX 2 MG GUM MT PRN (13:25)
[2018-12-26] MEDS: HALOPERIDOL 5 MG TAB PO PRN (13:25)
[2018-12-26] MEDS: DOCUSATE SODIUM 100 MG CAP PO SCH (20:45)
[2018-12-27] MEDS: HALOPERIDOL 5 MG TAB PO SCH ×2 (08:33→16:21)
[2018-12-27] MEDS: LORazepam 1 MG TAB PO PRN ×2 (08:37→19:29)
[2018-12-27] MEDS: ACETAMINOPHEN 325 MG TAB PO PRN ×2 (08:38→17:15)
[2018-12-27] MEDS: NICOTINE 21 MG/24 HR TDSY TD SCH (08:42)
[2018-12-27] MEDS ORDERED: TUBERCULIN SKIN TEST 5 TU in SYRINGE 0 ML ID ONE (09:00)
--- NOTE | 2018-12-27 11:44 | Psychiatric Progress Note ---
Date of Service December 27, 2018 Impression / Recommendations Impression Pt is appearing less irritable today, but continues to be delusional, voicing generalized pain. Could consider addition of prn ibuprofen in addition to prn acetaminophen available - certainly difficult to determine the extent of his delusions versus legitimate physical pain. If considered, would obviously want to avoid overuse, or extending to more robust pain medications given abuse history. Will continue to monitor pain reports for now. Hearing yesterday granting 304 commitment. It remains unclear how agreeable he would be to outpatient management, and with his extensive history, referral to [facility] has been initiated. EKG and TB skin test ordered for today. His behavior is in better control on the unit, but he remains at very high risk of harm to himself and others at this time. Patient is not safe for outpatient management at this time, and impatient mental health treatment is medically necessary. Will continue current medication regimen while awaiting response from the [facility]. (1) Thought disorder: 12/14 -patient is a poor historian, but mother provides historical information. 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 For now we will collect psychosis not otherwise specified. -Patient is refusing to sign releases for previous outpatient providers in [facility], and staff contacted them but they refused to provide any information without a signed release. -Medically necessary private room due to psychosis, erratic and disorganized behavior, history of violence, and aggressive behavior and threats to harm others here in the hospital. -Start haloperidol 5 mg twice daily, as patient has a previous good response to Haldol Decanoate and clozapine. Recommend medications over objection once he is on a 303 involuntary commitment and has been seen by a second physician, as he has severe psychotic symptoms which are preventing him from accurately int erpreting reality, influencing his behavior, and placing him at risk of harm to both himself and others as he has been acting on his delusions, experiencing auditory and visual 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, paranoia, engaging in unsafe behaviors including driving when he does not have a license or the knowledge to do so, abusing substances, and has been threatening towards others. He demonstrates no insight into his condition, but available information indicates response to treatment with antipsychotic medications in the past. -Medically necessary private room due to psychosis, aggressive behavior, and thr eats to harm others. -We will need to check fasting lipid profile and glucose once he is cooperative. -Excused from groups from the time being until able to participate appropriately. -Refusing to sign releases for parents, but mother is petitioner, so can inform her of the 303 hearing. 12/15 -The patient did except a single dose of lorazepam this morning, and did seem to be somewhat more calm. He was mildly labile during his involuntary commitment hearing this morning, but managed to maintain control and was not aggressive during the hearing or upon learning that he had been retained by the driver license reviewing officer. Accordingly, we will continue to offer him lorazepam, since this medication in his case does not seem to be disinhibiting and, at least today, appeared to have helped him manage angry impulses during his involuntary commitment hearing. -The treatment team and I agree that, if possible, we would like to convince the patient to voluntarily take oral medications. Reports are that this morning he came close to taking oral haloperidol, but at the last minute declined. He is telling us that he will consistently refused medications, but our hope is that as we are able to gain his trust he will become more cooperative. We will continue to try to convince the patient to take oral haloperidol, but if this is unsuccessful we will seek two physician approval of medication over objection and give Haldol 5 mg IM BID. 12/16--tolerating Haldol, titrate to 10 mg BID. 12/18 - Continue haldol 10 mg bid - Continue discussion about LAMA - Encourage better sleep hygiene, staying awake in the day to promote sleep at night. 12/19 - Patient allowed labs to be drawn. FBS 93, FLP WNL with the exception of triglycerides of 186. Counseled to avoid fatty red meats, saturated fats. 12/20 -Again discussed the recommendations for long-acting injectable antipsychotic medication with the patient, which he initially declined because he said medications are poison. He has a meeting with his family this afternoon, and I will order the first loading dose of Haldol Decanoate 50 mg IM to be administered this afternoon, and if he is unwilling to take it, we will likely need to proceed with medications over objection tomorrow. We will try to encourage him to accept the intervention, as he reportedly did fairly well on this medication in the past. 12/21 -proceed with medications over objection: Haldol Decanoate 100 mg IM today, and Haldol 10 mg IM for refusal of oral Haldol. He will need 100-200 mg of Haldol Decanoate every 4 weeks based on his current oral dose, so will continue oral haloperidol for now until we can monitor response to the decanoate. 12/22 -the patient received Haldol Decanoate intramuscularly today, as a medication over objection. He tolerated the injection well, and today tells me that he "feels pretty good." -Today, the patient's associations seemed to be fairly tight on examination. He tends to be somewhat concrete in his thinking, but, as above, he did seem able to understand our rationale for continuing inpatient treatment at this point. 12/23 - tolerating halol dec w/o EPS or other complaints. will need to consider reduction of oral dose in approx 1 week. 12/24 - pt remains less acutely behaviorally disturbed since Haldol dec injection last however evidenced mild acting out when physically uncomfortable today - will add standing docusate 100mg po qhs and encourage oral hydration today for complaint of hard stool - meeting / [facility] services tomorrow to explore dispo options 12/25 - Increase in irritability - Planning meeting held with [facility]: possibility for CRR vs state hospital - Continue current meds and encourage prns 12/26 - 304 granted. Meeting with [facility], patient and parents held yesterday: parents confirmed he cannot return home. Treatment team and [facility] recommends state hospitalization, as patient not appropriate for CRR placement due to severity of symptoms and unwillingness for outpatient treatment and medications. 12/27 - Continue current medication regimen - Orders placed for necessary EKG, TB skin test to accompany [facility] referral - Place on high elopement precautions last evening due to suspicious loitering at the entryway of the unit (2) Noncompliance with medications: 12/14 -stopped his medications 6 months ago and has decompensated since. Would benefit from a long-acting injectable, and either long-term inpatient treatment at the [facility] or involuntary outpatient treatment.. 12/15 -The patient's psychosis and severely impaired insight seem to be making him and accessible to reason, regarding the essential importance of psychiatric medications. There is a past history of favorable response to haloperidol as well as to clozapine. It is agreed that the patient would in all likelihood benefit from a long-acting injectable antipsychotic medication, given his history of recurrent medication nonadherence. 12/16--currently taking PO for a few doses, is on extended involuntary commitment and clearly ongoing schizophrenia which will fail to improve for him to be able to provide self-care without ongoing treatments on inpatient unit and medications over objection. Without antipsychotic medication he is at significant risk of /serious disability and a danger to himself/others. Dr. Srinivasan could provide second opinion if he refuses PO med. 12/18- Patient refusing to consider LAMA at this time. Will continue to encourage 12/21 -patient continues to refuse Haldol Decanoate, and is now also refusing oral Haldol. We will proceed with medications over objection, as he has a diagnosis of primary thought disorder, has benefited from Haldol Decanoate in the past, he is actively delusional and is refusing medications due to psychotic thought processes, and is at risk of harm to both himself and others if he remains untreated. He has a significant history of violence tied to his delusions, and it will be important to get his symptoms adequately managed to decrease the risk of violence towards others here in the hospital. 12/22 -medication adherence is most certainly going issue with this patient. We are recommending the continued use of Depo forms of antipsychotic medications, but, in the past, the patient has simply refused to return to the office of the healthcare professional who is administering the sectionas was the case last year when, after doing reasonably well, he stopped going for treatment, and stopped excepting medications. For this reason, we are carefully looking for a supportive living setting for this patient, preferably one that has the resources necessary to assist the resistant, not adherent to patient. 12/24 - remains better compliant with PO meds 12/25 - Takes meds when he thinks he needs them, but voiced some question about taking anything regularly after discharge. (3) Substance abuse: 12/14 -patient is not forthcoming, but mother reports he has been abusing alcohol, cough syrup, diphenhydramine, and likely other substances. We will monitor for withdrawal symptoms, and as his psychosis improves, will provide psychoeducation about the risks of substance abuse and recommendations for abstinence. -Avoid controlled substances given high risk of abuse/misuse/negative outcomes. 12/15 -It is recognized that the patient has an extensive history of abusing chemical substances, and it is generally agreed that use of controlled substances does pose significant risk of abuse and other negative outcomes in the long-term. However, the patient's irritability and unwillingness to cooperate with essential medications, such as haloperidol, as well as his history of physical aggression towards others, may be mitigated by the temporary use of a benzodiazepine. Today, a single dose of lorazepam seems to have been effective in helping the patient maintain composure during an involuntary commitment hearing that did not go in his favor, and staff have noticed that he has been somewhat more cooperative today, possibly in response to the dose of lorazepam. Accordingly, staff will continue to offer the patient as needed lorazepam. 12/21 -admission drug screen was positive for benzodiazepines, with significantly elevated temazepam (> 2000) and elevated oxazepam levels. Although he denied taking benzodiazepines prior to admission, he clearly was accessing them somehow. 12/22 -the patient is able to give what may be referred to as "lip service" to the concept of abstinence from drugs of abuse, but he seems to have little or no insight into the risks associated with his abuse of mood altering chemical substances, particularly within the context of his psychiatric illness. Again, a whole will be to identify an aftercare placement that we will be able to monitor him more assiduously for access to abusable chemical substances, including prescription medications, alcohol, and other drugs of abuse. (4) Antisocial personality disorder: 12/14 -extensive, lifelong history provided by adoptive mother which reveals a pervasive pattern of disregard for and violation of the rights of others which started at age 8 or earlier, failure to conform to social norms with respect to lawful behaviors as indicated by repeatedly performing acts that are grounds for arrest, deceitfulness, impulsivity and failure to plan ahead, irritability and aggressiveness, reckless disregard for safety of self and others, consistent irresponsibility, and lack of remorse. 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 -Reviewed expectations with respect to behavior on the unit. 12/15 -The patient's history of antisocial behavior is noted, and antisocial personality will not be a focus of treatment during this hospitalization. However, the record indicates that the patient's antisocial behaviors, which are lifelong, are mitigated to some extent when he is being successfully treated for his psychotic disorder. Accordingly, the approach will be to address his antisocial behaviors by focusing on addressing his psychosis. 12/22 -The patient's long-standing history of antisocial behaviorbehavior which reportedly predates the onset of his symptoms of schizophreniahave not been a focus of treatment and are unlikely to change. Careful monitoring, diversion, containment to the degree possible, to containment of the most appropriate interventions for this problem. Inventory Assets Strengths: Good physical health. Able to form alliances with certain peers. Concerned and supportive parents. Needs: Continued adherence with psychiatric medications. Sustained recovery from psychotic features. Risk Factors Assessment Male: Yes : Yes Do You Have Access To A Gun?: No Health Problems: Yes Mental Health Diagnoses: Yes Substance Use Disorders: Yes Previous Attempt: No Previous Psychiatric Hospitalization: Yes Hopelessness: No Smoker: Yes Protective Factors Assessment Quaker Beliefs: No : No Responsible for Young Children: No Employed: No Stable Relationships: No Supportive Family: Yes Good Rapport with Provider: No Absence of Any Risk Factors Above: No Interval History Identifying Information APRIL GONZALEZ is a 43-year-old M who lives in [place] with his parents, has a history of a psychotic disorder (specific diagnosis not yet known, but history of multiple previous hospitalizations including a 1 year state hospitalization in [place]), and was admitted on 12/14/18 03:41 on a 302 involuntary commitment for psychosis, treatment noncompliance, and erratic, unsafe behavior. He is on a 304 involuntary commitment as of 12/26/2018. Chief Complaint "Um, tired, what'd you say?" Review of Systems Notes Constitutional: reports generalized pain Cardiovascular: denied Respiratory: denied Gastrointestinal: denied Neurological: denied Psychiatric: denies symptoms other than stated above Total of at least 10 systems reviewed, pertinent positives as above and in HPI. Sleep Information Total Hours of Sleep: 8.5 Sleep Comments: pt given vistaril per rn. pt on q-15 minute checks Meal Information Percent Meal Consumed - Breakfast: 100 Percent Meal Consumed - Lunch: 100 Percent Meal Consumed - Dinner: 100 Nutrition Comment: pt. sleeping Subjective Subjective Patient was seen & assessed and interval progress reviewed with Treatment Team. Staff report the patient has been heavily focused on generalized pain. Pt was reportedly irritable during evening shift, noticeably searching the unit, and was placed on high elopement risk as precautions. Pt was seen today to assess progress since admission. He is observed while laying in bed, reporting plan to take a nap. Pt states he is "tired" today, reporting to particular plans. Pt states his mood is "fine" and then begins to share information about his pain concerns. When asked what was bothering him, he stated "all of it" and "back, head, feet, calf - all over". He states he has been provided with acetaminophen which provides relief for about "10 minutes." He denies concerns today, and drifts off to sleep several times during our interview, eventually no longer responding to our conversation. Physical Exam Psychiatric Orientation: alert, oriented to person, oriented to place and + guarded (only superficially cooperative) Apperance: appropriately dressed and + disheveled Eye Contact: good eye contact Motor Behavior: no abnormal motor movements (observed while laying in bed) Speech: normal rate/rhythm/volume of speech; no pressured speech Affect: + blunted affect (also appearing fatigued) and + constricted affect Mood: + depressed mood ("fine"); no anxious mood Thought Process: goal directed thought process (discussing sleep and pain) and + concrete thought process; + thought process not clear or coherent Thought Content: + preoccupation (with generalized pain) and + paranoid; no delusions (no obvious delusional thinking unearthed during this particular interaction) Suicidal Thoughts: denies suicidal thoughts Homicidal Thoughts: denies homicidal thoughts Hallucinations: no auditory 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 and no visual 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 Cognition: recent memory grossly intact, attention grossly intact and language grossly intact; + remote memory not intact Estimated Intelligence: consistent with education level and + below average estimated intelligence Insight: + severely impaired insight Judgement: + severely impaired judgement Vital Signs (Past 24 Hours) Last Vital Signs Temp 36.4 C L 12/27/18 06:44 Pulse 87 12/27/18 06:45 Resp 18 12/27/18 06:44 BP 114/85 12/27/18 06:45 Pulse Ox 97 12/14/18 03:38 Results & Data Current Inpatient Medications Current Inpatient Medications: Current Inpatient Medications Acetaminophen (Tylenol) 650 mg PO Q4H PRN PRN Reason: Headache or Minor Fever Stop: 01/13/19 02:51 Last Admin: 12/27/18 08:38 Dose: 650 mg Documented by: Al Hydrox/Mg Hydrox/Simethicone (Maalox) 30 ml PO Q4H PRN PRN Reason: GI Upset Stop: 01/13/19 02:51 Bismuth Subsalicylate (Kaopectate) 15 ml PO PRN PRN PRN Reason: Loose Stool Stop: 01/13/19 02:51 Docusate Sodium (Colace) 100 mg PO HS KELLY Stop: 01/23/19 21:59 Last Admin: 12/26/18 20:45 Dose: Not Given Documented by: Haloperidol (Haldol) 10 mg PO Q4 PRN PRN Reason: psychosis or agitation Stop: 01/13/19 03:55 Last Admin: 12/26/18 13:25 Dose: 10 mg Documented by: Haloperidol (Haldol) 10 mg PO 0900,1600 KELLY Stop: 01/20/19 09:59 Last Admin: 12/27/18 08:33 Dose: 10 mg Documented by: Haloperidol Lactate (Haldol) 10 mg IM Q4 PRN PRN Reason: psychosis or agitation Stop: 01/13/19 03:55 Haloperidol Lactate (Haldol) 10 mg IM 0900,1600 PRN PRN Reason: refusal of PO Stop: 01/20/19 09:56 Hydroxyzine HCl (Vistaril) 25 mg PO Q4H PRN PRN Reason: Anxiety Stop: 01/13/19 02:51 Last Admin: 12/22/18 18:25 Dose: 25 mg Documented by: Hydroxyzine HCl (Vistaril) 50 mg PO HSZ PRN PRN Reason: Insomnia Stop: 01/13/19 02:51 Last Admin: 12/25/18 22:55 Dose: 50 mg Documented by: Lorazepam (Ativan) 1 mg PO Q4 PRN PRN Reason: Agitation Stop: 01/13/19 03:52 Last Admin: 12/27/18 08:37 Dose: 1 mg Documented by: Lorazepam (Ativan) 1 mg IM Q4 PRN PRN Reason: Agitation Stop: 01/13/19 03:54 Magnesium Hydroxide (Milk Of Magnesia) 30 ml PO DAILY PRN PRN Reason: Heartburn Stop: 01/13/19 02:51 Menthol (Nice) 1 be BUCCAL Q2H PRN PRN Reason: Sore Throat Stop: 01/19/19 20:40 Last Admin: 12/20/18 20:52 Dose: 1 be Documented by: Miscellaneous (Remove Nicoderm Patch) 1 ea N/A DAILY@2100 KELLY Stop: 01/13/19 20:59 Last Admin: 12/26/18 20:45 Dose: Not Given Documented by: Miscellaneous (Ppd Check) 1 ea N/A Q48H ONE Stop: 12/29/18 09:01 Nicotine (Nicoderm Cq) 21 mg TD QAM [facility] Stop: 01/13/19 08:59 Last Admin: 12/27/18 08:42 Dose: 21 mg Documented by: Nicotine Polacrilex (Nicorette 2mg) 1 piece MT UD PRN PRN Reason: Nicotine Withdrawal Stop: 01/13/19 08:20 Last Admin: 12/26/18 13:25 Dose: 1 piece Documented by: Sodium Chloride ([place] Nasal) 1 - 2 sprays NA PRN PRN PRN Reason: Nasal Dryness/Congestion Stop: 01/13/19 02:51 Post Discharge Appointments Primary Care Physician Name Of Family Doctor: Denies Therapist Name of Therapist: Denies Party Chief Name of Party Chief: [employer] Phone Number for Party Chief: [phone] Case Management Appointment Comment: [address], [address], [place], [place] CPT Code CPT Code 30919
--- NOTE | 2018-12-27 12:54 | Communication Note ---
Date of Service: December 27, 2018 [place] [facility] [place] and reviewed: Patient was in treatment there from September 2009 through July 2018, when he moved to [place]. He had been stable on Haldol Decanoate 150 mg monthly and clozapine 200 mg at bedtime for years, but after his grandmother , he became less stable, stopped medications, and stopped coming to appointments. When he moved, he refused to sign a release so they could send his treatment information to the [facility] office. At the time of discharge, he was also on benztropine 1 mg twice daily, buspirone 10 mg twice daily and haloperidol 5 mg p.o. at bedtime as needed psychosis or anxiety. He was diagnosed with schizoaffective disorder unspecified, substance dependence, insomnia, and obesity. He had been using marijuana since age 15, also abused opiates, Benadryl, cough syrup, and other substances not specifically listed. He had been hospitalized in 04/2018 and put back on clozapine, and 1-2 months later stopped coming to appointments and taking medications. No psychiatric records received, just nursing notes.
[2018-12-27] MEDS: BENZTROPINE MESYLATE 1 MG TAB PO PRN (20:05)
[2018-12-27] MEDS ORDERED: BENZTROPINE MESYLATE 1 MG TAB PO SCH (21:00)
[2018-12-27] MEDS: DOCUSATE SODIUM 100 MG CAP PO SCH (21:04)
[2018-12-27] MEDS: NICOTINE POLACRILEX 2 MG GUM MT PRN (21:38)
[2018-12-28] MEDS: HALOPERIDOL 5 MG TAB PO SCH ×2 (08:44→16:40)
[2018-12-28] MEDS: NICOTINE 21 MG/24 HR TDSY TD SCH (08:46)
--- NOTE | 2018-12-28 09:48 | Psychiatric Progress Note ---
Date of Service December 28, 2018 Impression / Recommendations Impression In good behavioral control today, though is isolative and taking frequent naps. Concerned about patient disrupting sleep/wake cycle with frequent napping and difficulty sleeping in the evening. Pt is less irritable following his 304 hearing, and may be more appropriate to invite to some recreational groups to encourage him to engage more in treatment. EKG and PPD completed yesterday as part of [facility] referral. His behavior remains in better control on the unit, but he continues to be at very high risk of harm to himself and others. Patient is not safe for outpatient management at this time, and impatient mental health treatment is medically necessary. Will continue current medication regimen while awaiting response from [facility]. (1) Thought disorder: 12/14 -patient is a poor historian, but mother provides historical information. 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 For now we will collect psychosis not otherwise specified. -Patient is refusing to sign releases for previous outpatient providers in [place], and staff contacted them but they refused to provide any information without a signed release. -Medically necessary private room due to psychosis, erratic and disorganized behavior, history of violence, and aggressive behavior and threats to harm others here in the hospital. -Start haloperidol 5 mg twice daily, as patient has a previous good response to Haldol Decanoate and clozapine. Recommend medications over objection once he is on a 303 involuntary commitment and has been seen by a second physician, as he has severe psychotic symptoms which are preventing him from accurately interpreting reality, influencing his behavior, and placing him at risk of harm to both himself and others as he has been acting on his delusions, experiencing auditory and visual 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, paranoia, engaging in unsafe behaviors including driving when he does not have a license or the knowledge to do so, abusing substances, and has been threatening towards others. He demonstrates no insight into his condition, but available information indicates response to treatment with antipsychotic medications in the past. -Medically necessary private room due to psychosis, aggressive behavior, and threats to harm others. -We will need to check fasting lipid profile and glucose once he is cooperative. -Excused from groups from the time being until able to participate appropriately. -Refusing to sign releases for parents, but mother is petitioner, so can inform her of the 303 hearing. 12/15 -The patient did except a single dose of lorazepam this morning, and did seem to be somewhat more calm. He was mildly labile during his involuntary commitment hearing this morning, but managed to maintain control and was not aggressive during the hearing or upon learning that he had been retained by the returning officer. Accordingly, we will continue to offer him lorazepam, since this medication in his case does not seem to be disinhibiting and, at least today, appeared to have helped him manage angry impulses during his involuntary commi tment hearing. -The treatment team and I agree that, if possible, we would like to convince the patient to voluntarily take oral medications. Reports are that this morning he came close to taking oral haloperidol, but at the last minute declined. He is telling us that he will consistently refused medications, but our hope is that as we are able to gain his trust he will become more cooperative. We will continue to try to convince the patient to take oral haloperidol, but if this is unsuccessful we will seek two physician approval of medication over objection and give Haldol 5 mg IM BID. 12/16--tolerating Haldol, titrate to 10 mg BID. 12/18 - Continue haldol 10 mg bid - Continue discussion about LAMA - Encourage better sleep hygiene, staying awake in the day to promote sleep at night. 12/19 - Patient allowed labs to be drawn. FBS 93, FLP WNL with the exception of triglycerides of 186. Counseled to avoid fatty red meats, saturated fats. 12/20 -Again discussed the recommendations for long-acting injectable antipsychotic medication with the patient, which he initially declined because he said medications are poison. He has a meeting with his family this afternoon, and I will order the first loading dose of Haldol Decanoate 50 mg IM to be administered this afternoon, and if he is unwilling to take it, we will likely need to proceed with medications over objection tomorrow. We will try to encourage him to accept the intervention, as he reportedly did fairly well on this medication in the past. 12/21 -proceed with medications over objection: Haldol Decanoate 100 mg IM today, and Haldol 10 mg IM for refusal of oral Haldol. He will need 100-200 mg of Haldol Decanoate every 4 weeks based on his current oral dose, so will continue oral haloperidol for now until we can monitor response to the decanoate. 12/22 -the patient received Haldol Decanoate intramuscularly today, as a medication over objection. He tolerated the injection well, and today tells me that he "feels pretty good." -Today, the patient's associations seemed to be fairly tight on examination. He tends to be somewhat concrete in his thinking, but, as above, he did seem able to understand our rationale for continuing inpatient treatment at this point. 12/23 - tolerating halol dec w/o EPS or other complaints. will need to consider reduction of oral dose in approx 1 week. 12/24 - pt remains less acutely behaviorally disturbed since Haldol dec injection last however evidenced mild acting out when physically uncomfortable today - will add standing docusate 100mg po qhs and encourage oral hydration today for complaint of hard stool - meeting / [facility] services tomorrow to explore dispo options 12/25 - Increase in irritability - Planning meeting held with [facility]: possibility for CRR vs [facility] - Continue current meds and encourage prns 12/26 - 304 granted. Meeting with [facility], patient and parents held yesterday: parents confirmed he cannot return home. Treatment team and [facility] recommends state hospitalization, as patient not appropriate for CRR placement due to severity of symptoms and unwillingness for outpatient treatment and medications. 12/27 - Continue current medication regimen - Orders placed for necessary EKG, TB skin test to accompany [place] referral - Place on high elopement precautions last evening due to suspicious loitering at the entryway of the unit - Reviewed records from [facility] - previous diagnoses were schizoaffective disorder and substance abuse 12/28 - Continue current medication regimen - EKG and PPD completed yesterday - PPD will need read on 12/30 (2) Noncompliance with medications: 12/14 -stopped his medications 6 months ago and has decompensated since. Would benefit from a long-acting injectable, and either long-term inpatient treatment at the [facility] or involuntary outpatient treatment.. 12/15 -The patient's psychosis and severely impaired insight seem to be making him and accessible to reason, regarding the essential importance of psychiatric medications. There is a past history of favorable response to haloperidol as well as to clozapine. It is agreed that the patient would in all likelihood benefit from a long-acting injectable antipsychotic medication, given his history of recurrent medication nonadherence. 12/16--currently taking PO for a few doses, is on extended involuntary commitment and clearly ongoing schizophrenia which will fail to improve for him to be able to provide self-care without ongoing treatments on inpatient unit and medic ations over objection. Without antipsychotic medication he is at significant risk of /serious disability and a danger to himself/others. Dr. Srinivasan could provide second opinion if he refuses PO med. 12/18- Patient refusing to consider LAMA at this time. Will continue to encourage 12/21 -patient continues to refuse Haldol Decanoate, and is now also refusing oral Haldol. We will proceed with medications over objection, as he has a diagnosis of primary thought disorder, has benefited from Haldol Decanoate in the past, he is actively delusional and is refusing medications due to psychotic thought processes, and is at risk of harm to both himself and others if he remains untreated. He has a significant history of violence tied to his delusions, and it will be important to get his symptoms adequately managed to decrease the risk of violence towards others here in the hospital. 12/22 -medication adherence is most certainly going issue with this patient. We are recommending the continued use of Depo forms of antipsychotic medications, but, in the past, the patient has simply refused to return to the office of the healthcare professional who is administering the sectionas was the case last year when, after doing reasonably well, he stopped going for treatment, and stopped excepting medications. For this reason, we are carefully looking for a supportive living setting for this patient, preferably one that has the resources necessary to assist the resistant, not adherent to patient. 12/24 - remains better compliant with PO meds 12/25 - Takes meds when he thinks he needs them, but voiced some question about taking anything regularly after discharge. (3) Substance abuse: 12/14 -patient is not forthcoming, but mother reports he has been abusing alcohol, cough syrup, diphenhydramine, and likely other substances. We will monitor for withdrawal symptoms, and as his psychosis improves, will provide psychoeducation about the risks of substance abuse and recommendations for abstinence. -Avoid controlled substances given high risk of abuse/misuse/negative outcomes. 12/15 -It is recognized that the patient has an extensive history of abusing chemical substances, and it is generally agreed that use of controlled substances does pose significant risk of abuse and other negative outcomes in the long-term. However, the patient's irritability and unwillingness to cooperate with essential medications, such as haloperidol, as well as his history of physical aggression towards others, may be mitigated by the temporary use of a julia odiazepine. Today, a single dose of lorazepam seems to have been effective in helping the patient maintain composure during an involuntary commitment hearing that did not go in his favor, and staff have noticed that he has been somewhat more cooperative today, possibly in response to the dose of lorazepam. Accordingly, staff will continue to offer the patient as needed lorazepam. 12/21 -admission drug screen was positive for benzodiazepines, with significantly elevated temazepam (> 2000) and elevated oxazepam levels. Although he denied taking benzodiazepines prior to admission, he clearly was accessing them somehow. 12/22 -the patient is able to give what may be referred to as "lip service" to the concept of abstinence from drugs of abuse, but he seems to have little or no insight into the risks associated with his abuse of mood altering chemical substances, particularly within the context of his psychiatric illness. Again, a whole will be to identify an aftercare placement that we will be able to monitor him more assiduously for access to abusable chemical substances, including prescription medications, alcohol, and other drugs of abuse. (4) Antisocial personality disorder: 12/14 -extensive, lifelong history provided by adoptive mother which reveals a pervasive pattern of disregard for and violation of the rights of others which started at age 8 or earlier, failure to conform to social norms with respect to lawful behaviors as indicated by repeatedly performing acts that are grounds for arrest, deceitfulness, impulsivity and failure to plan ahead, irritability and aggressiveness, reckless disregard for safety of self and others, consistent irresponsibility, and lack of remorse. 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 -Reviewed expectations with respect to behavior on the unit. 12/15 -The patient's history of antisocial behavior is noted, and antisocial personality will not be a focus of treatment during this hospitalization. However, the record indicates that the patient's antisocial behaviors, which are lifelong, are mitigated to some extent when he is being successfully treated for his psychotic disorder. Accordingly, the approach will be to address his antisocial behaviors by focusing on addressing his psychosis. 12/22 -The patient's long-standing history of antisocial behaviorbehavior which reportedly predates the onset of his symptoms of schizophreniahave not been a focus of treatment and are unlikely to change. Careful monitoring, diversion, containment to the degree possible, to containment of the most appropriate interventions for this problem. Inventory Assets Strengths: Good physical health. Able to form alliances with certain peers. Concerned and supportive parents. Needs: Continued adherence with psychiatric medications. Sustained recovery from psychotic features. Risk Factors Assessment Male: Yes : Yes Do You Have Access To A Gun?: No Health Problems: Yes Mental Health Diagnoses: Yes Substance Use Disorders: Yes Previous Attempt: No Previous Psychiatric Hospitalization: Yes Hopelessness: No Smoker: Yes Protective Factors Assessment Yazdanism Beliefs: No : No Responsible for Young Children: No Employed: No Stable Relationships: No Supportive Family: Yes Good Rapport with Provider: No Absence of Any Risk Factors Above: No Interval History Identifying Information APRIL GONZALEZ is a 43-year-old M who lives in [place] with his parents, has a history of a psychotic disorder (specific diagnosis not yet known, but history of multiple previous hospitalizations including a 1 year state hospitalization in [place]), and was admitted on 12/14/18 03:41 on a 302 involuntary commitment for psychosis, treatment noncompliance, and erratic, unsafe behavior. He is on a 304 involuntary commitment as of 12/26/2018. Chief Complaint "Tired". Review of Systems Notes Constitutional: reports fatigue Cardiovascular: denied Respiratory: denied Gastrointestinal: denied Neurological: denied Psychiatric: denies symptoms other than stated above Total of at least 10 systems reviewed, pertinent positives as above and in HPI. Sleep Information Total Hours of Sleep: 6 Sleep Comments: he received a dose of vistaril for sleep aid at hs. he was up to the bathroom at 0330 then back to bed. Meal Information Percent Meal Consumed - Breakfast: 100 Percent Meal Consumed - Lunch: 100 Percent Meal Consumed - Dinner: 100 Nutrition Comment: pt. sleeping Subjective Subjective Patient was seen & assessed and interval progress reviewed with Nursing. Staff report the patient has been appropriate behaviorally, in improvement from irritability displayed on the day of his 304 hearing. EKG and PPD completed yesterday as part of [facility] referral. Pt was seen today to assess progress since admission. Pt states he is tired this morning, and has been sleeping frequently. He states he has not been sleeping well at night. We discussed this provider's concern about the patient's sleep schedule being thrown off by his frequent daytime napping - patient states he is trying to stay up as long as possible during the day. He reports his mood is "fine" and denies any further needs from staff at this time. Physical Exam Psychiatric Orientation: alert, oriented to person, oriented to place and + guarded (only superficially cooperative) Apperance: appropriately dressed, appropriately groomed and + disheveled Eye Contact: good eye contact, + fair eye contact and + poor eye contact Motor Behavior: steady gait and station and no abnormal motor movements Speech: normal rate/rhythm/volume of speech; no pressured speech Affect: + flat affect, + blunted affect (also appearing fatigued), + constricted affect and mood congruent with affect Mood: + depressed mood ("fine"); no anxious mood Thought Process: goal directed thought process and + concrete thought process; + thought process not clear or coherent Thought Content: + paranoid; no delusions (no obvious delusional thinking unearthed during this particular interaction) Suicidal Thoughts: denies suicidal thoughts Homicidal Thoughts: denies homicidal thoughts Hallucinations: no auditory 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 and no visual 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 Cognition: recent memory grossly intact, attention grossly intact and language grossly intact; + remote memory not intact Estimated Intelligence: consistent with education level and + below average estimated intelligence Insight: + severely impaired insight Judgement: + severely impaired judgement Vital Signs (Past 24 Hours) Last Vital Signs Temp 36.3 C L 12/28/18 06:45 Pulse 96 H 12/28/18 06:46 Resp 18 12/28/18 06:45 BP 106/61 12/28/18 06:46 Pulse Ox 97 12/14/18 03:38 Results & Data Current Inpatient Medications Current Inpatient Medications: Current Inpatient Medications Acetaminophen (Tylenol) 650 mg PO Q4H PRN PRN Reason: Headache or Minor Fever Stop: 01/13/19 02:51 Last Admin: 12/27/18 17:15 Dose: 650 mg Documented by: Al Hydrox/Mg Hydrox/Simethicone (Maalox) 30 ml PO Q4H PRN PRN Reason: GI Upset Stop: 01/13/19 02:51 Benztropine Mesylate (Cogentin) 1 mg PO BID PRN PRN Reason: akathisia Stop: 01/26/19 20:59 Last Admin: 12/27/18 20:05 Dose: 1 mg Documented by: Bismuth Subsalicylate (Kaopectate) 15 ml PO PRN PRN PRN Reason: Loose Stool Stop: 01/13/19 02:51 Docusate Sodium (Colace) 100 mg PO HS KELLY Stop: 01/23/19 21:59 Last Admin: 12/27/18 21:04 Dose: Not Given Documented by: Haloperidol (Haldol) 10 mg PO Q4 PRN PRN Reason: psychosis or agitation Stop: 01/13/19 03:55 Last Admin: 12/26/18 13:25 Dose: 10 mg Documented by: Haloperidol (Haldol) 10 mg PO 0900,1600 KELLY Stop: 01/20/19 09:59 Last Admin: 12/28/18 08:44 Dose: 10 mg Documented by: Haloperidol Lactate (Haldol) 10 mg IM Q4 PRN PRN Reason: psychosis or agitation Stop: 01/13/19 03:55 Haloperidol Lactate (Haldol) 10 mg IM 0900,1600 PRN PRN Reason: refusal of PO Stop: 01/20/19 09:56 Hydroxyzine HCl (Vistaril) 25 mg PO Q4H PRN PRN Reason: Anxiety Stop: 01/13/19 02:51 Last Admin: 12/28/18 07:44 Dose: 25 mg Documented by: Hydroxyzine HCl (Vistaril) 50 mg PO HSZ PRN PRN Reason: Insomnia Stop: 01/13/19 02:51 Last Admin: 12/27/18 21:24 Dose: 50 mg Documented by: Lorazepam (Ativan) 1 mg PO Q4 PRN PRN Reason: Agitation Stop: 01/13/19 03:52 Last Admin: 12/27/18 19:29 Dose: 1 mg Documented by: Lorazepam (Ativan) 1 mg IM Q4 PRN PRN Reason: Agitation Stop: 01/13/19 03:54 Magnesium Hydroxide (Milk Of Magnesia) 30 ml PO DAILY PRN PRN Reason: Heartburn Stop: 01/13/19 02:51 Menthol (Nice) 1 be BUCCAL Q2H PRN PRN Reason: Sore Throat Stop: 01/19/19 20:40 Last Admin: 12/20/18 20:52 Dose: 1 be Documented by: Miscellaneous (Remove Nicoderm Patch) 1 ea N/A DAILY@2100 KELLY Stop: 01/13/19 20:59 Last Admin: 12/27/18 21:04 Dose: Not Given Documented by: Miscellaneous (Ppd Check) 1 ea N/A Q48H ONE Stop: 12/29/18 09:01 Nicotine (Nicoderm Cq) 21 mg TD QAM KELLY Stop: 01/13/19 08:59 Last Admin: 12/28/18 08:46 Dose: 21 mg Documented by: Nicotine Polacrilex (Nicorette 2mg) 1 piece MT UD PRN PRN Reason: Nicotine Withdrawal Stop: 01/13/19 08:20 Last Admin: 12/27/18 21:38 Dose: 1 piece Documented by: Sodium Chloride ([facility] Nasal) 1 - 2 sprays NA PRN PRN PRN Reason: Nasal Dryness/Congestion Stop: 01/13/19 02:51 Post Discharge Appointments Primary Care Physician Name Of Family Doctor: Denies Therapist Name of Therapist: Denies [employer] Name of Vice President Lending: [employer] Phone Number for Vice President Lending: [phone] Case Management Appointment Comment: [address], [address], [place], [place] CPT Code CPT Code 99475
[2018-12-28] MEDS: ACETAMINOPHEN 325 MG TAB PO PRN (18:18)
[2018-12-28] MEDS: DOCUSATE SODIUM 100 MG CAP PO SCH (21:14)
[2018-12-29] MEDS: ACETAMINOPHEN 325 MG TAB PO PRN ×3 (05:48→18:13)
[2018-12-29] MEDS ORDERED: PPD CHECK ONE (09:00)
[2018-12-29] MEDS: HALOPERIDOL 5 MG TAB PO SCH ×2 (09:13→15:56)
[2018-12-29] MEDS: NICOTINE 21 MG/24 HR TDSY TD SCH (09:14)
--- NOTE | 2018-12-29 14:11 | Psychiatric Progress Note ---
Date of Service December 29, 2018 Impression / Recommendations Impression Although the patient's improvement has not been steady, the slope of what appears to be a somewhat sinusoidal curve has generally been upward. He seems to have shown an incremental improvement following a intramuscular dose of haloperidol yesterday which has caused some of the team to question whether he may be, at least at times, "cheeking" his oral medications. However, staff reports that they have been checking him quite closely and observing him for extended periods following oral administration, and they have watched him eat and drink fluids after taking his oral medications. Today, the patient is not asking to leave the hospital, and tells me that he recognizes that he is still waiting for a place to go. He has engaged in certain behaviors that have caused the staff to suspect that he may be thinking about elopement, and for that reason the unit is observing elopement precautions. The patient's thinking remains disorganized, and his behaviors include his periodically taking and secreting items on the unit that do not belong to him. Today, for the first time in my experience with this patient, he was able to voice an opinion that he is responding favorably to medication. He notes several possible side effects, but feels that, overall, he is tolerating the medication well and is offering no complaints. Staff observation remains of the patient tends to sleep a great deal during the day and sometimes is awake at night. Also today the patient was willing to discuss resuming clozapine, medication that has reportedly been quite effective in the past for this patient, and also one that he reportedly has tolerated well. He did voice some concern that he may gain weight as a side effect of clozapine, but was able to consider strategies to avoid or mitigate weight gain on clozapine. In the past, the combination of haloperidol and clozapine reportedly has been the most effective, but, did sedate during the hospitalization, the patient has said that he will not consider resuming clozapine. Today, he acknowledges that it has helped him in the past and tells me that he is willing to give it "another try." (1) Thought disorder: 12/14 -patient is a poor historian, but mother provides historical information. 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 For now we will collect psychosis not otherwise specified. -Patient is refusing to sign releases for previous outpatient providers in [place], and staff contacted them but they refused to provide any information without a signed release. -Medically necessary private room due to psychosis, erratic and disorganized behavior, history of violence, and aggressive behavior and threats to harm others here in the hospital. -Start haloperidol 5 mg twice daily, as patient has a previous good response to Haldol Decanoate and clozapine. Recommend medications over objection once he is on a 303 involuntary commitment and has been seen by a second physician, as he has severe psychotic symptoms which are preventing him from accurately interpreting reality, influencing his behavior, and placing him at risk of harm to both himself and others as he has been acting on his delusions, experiencing auditory and visual 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, paranoia, engaging in unsafe behaviors including driving when he does not have a license or the knowledge to do so, abusing substances, and has been threatening towards others. He demonstrates no insight into his condition, but available information indicates response to shaggy tment with antipsychotic medications in the past. -Medically necessary private room due to psychosis, aggressive behavior, and threats to harm others. -We will need to check fasting lipid profile and glucose once he is cooperative. -Excused from groups from the time being until able to participate appropriately. -Refusing to sign releases for parents, but mother is petitioner, so can inform her of the 303 hearing. 12/15 -The patient did except a single dose of lorazepam this morning, and did seem to be somewhat more calm. He was mildly labile during his involuntary commitment hearing this morning, but managed to maintain control and was not aggressive during the hearing or upon learning that he had been retained by the chief learning officer. Accordingly, we will continue to offer him lorazepam, since this medication in his case does not seem to be disinhibiting and, at least today, appeared to have helped him manage angry impulses during his involuntary commitment hearing. -The treatment team and I agree that, if possible, we would like to convince the patient to voluntarily take oral medications. Reports are that this morning he came close to taking oral haloperidol, but at the last minute declined. He is telling us that he will consistently refused medications, but our hope is that as we are able to gain his trust he will become more cooperative. We will continue to try to convince the patient to take oral haloperidol, but if this is unsuccessful we will seek two physician approval of medication over objection and give Haldol 5 mg IM BID. 12/16--tolerating Haldol, titrate to 10 mg BID. 12/18 - Continue haldol 10 mg bid - Continue discussion about LAMA - Encourage better sleep hygiene, staying awake in the day to promote sleep at night. 12/19 - Patient allowed labs to be drawn. FBS 93, FLP WNL with the exception of triglycerides of 186. Counseled to avoid fatty red meats, saturated fats. 12/20 -Again discussed the recommendations for long-acting injectable antipsychotic medication with the patient, which he initially declined because he said medications are poison. He has a meeting with his family this afternoon, and I will order the first loading dose of Haldol Decanoate 50 mg IM to be administered this afternoon, and if he is unwilling to take it, we will likely need to proceed with medications over objection tomorrow. We will try to encourage him to accept the intervention, as he reportedly did fairly well on this medication in the past. 12/21 -proceed with medications over objection: Haldol Decanoate 100 mg IM today, and Haldol 10 mg IM for refusal of oral Haldol. He will need 100-200 mg of Haldol Decanoate every 4 weeks based on his current oral dose, so will continue oral haloperidol for now until we can monitor response to the decanoate. 12/22 -the patient received Haldol Decanoate intramuscularly today, as a medication over objection. He tolerated the injection well, and today tells me that he "feels pretty good." -Today, the patient's associations seemed to be fairly tight on examination. He tends to be somewhat concrete in his thinking, but, as above, he did seem able to understand our rationale for continuing inpatient treatment at this point. 12/23 - tolerating halol dec w/o EPS or other complaints. will need to consider reduction of oral dose in approx 1 week. 12/24 - pt remains less acutely behaviorally disturbed since Haldol dec injection last however evidenced mild acting out when physically uncomfortable today - will add standing docusate 100mg po qhs and encourage oral hydration today for complaint of hard stool - meeting w/ [facility] services tomorrow to explore dispo options 12/25 - Increase in irritability - Planning meeting held with [facility]: possibility for CRR vs [facility] - Continue current meds and encourage prns 12/26 - 304 granted. Meeting with [facility], patient and parents held yesterday: parents confirmed he cannot return home. Treatment team and [facility] recommends state hospitalization, as patient not appropriate for CRR placement due to severity of symptoms and unwillingness for outpatient treatment and medications. 12/27 - Continue current medication regimen - Orders placed for necessary EKG, TB skin test to accompany [facility] referral - Place on high elopement precautions last evening due to suspicious loitering at the entryway of the unit - Reviewed records from [facility] - previous diagnoses were schizoaffective disorder and substance abuse 12/28 - Continue current medication regimen - EKG and PPD completed yesterday - PPD will need read on 12/30 12/29 -Add clozapine 12.5 mg BID and increase as tolerated by 25 mg per day to a dose of 300 mg daily (in two divided dosages, or all at bedtime). Present on Admission?: Yes (2) Noncompliance with medications: 12/14 -stopped his medications 6 months ago and has decompensated since. Would benefit from a long-acting injectable, and either long-term inpatient treatment [facility] or involuntary outpatient treatment.. 12/15 -The patient's psychosis and severely impaired insight seem to be making him and accessible to reason, regarding the essential importance of psychiatric medications. There is a past history of favorable response to haloperidol as well as to clozapine. It is agreed that the patient would in all likelihood benefit from a long-acting injectable antipsychotic medication, given his history of recurrent medication nonadherence. 12/16--currently taking PO for a few doses, is on extended involuntary commitment and clearly ongoing schizophrenia which will fail to improve for him to be able to provide self-care without ongoing treatments on inpatient unit and medications over objection. Without antipsychotic medication he is at significant risk of /serious disability and a danger to himself/others. Dr. Srinivasan could provide second opinion if he refuses PO med. 12/18- Patient refusing to consider LAMA at this time. Will continue to encourage 12/21 -patient continues to refuse Haldol Decanoate, and is now also refusing oral Haldol. We will proceed with medications over objection, as he has a diagnosis of primary thought disorder, has benefited from Haldol Decanoate in the past, he is actively delusional and is refusing medications due to psychotic thought processes, and is at risk of harm to both himself and others if he remains untreated. He has a significant history of violence tied to his delusions, and it will be important to get his symptoms adequately managed to decrease the risk of violence towards others here in the hospital. 12/22 -medication adherence is most certainly going issue with this patient. We are recommending the continued use of Depo forms of antipsychotic medications, but, in the past, the patient has simply refused to return to the office of the healthcare professional who is administering the sectionas was the case last year when, after doing reasonably well, he stopped going for treatment, and stopped excepting medications. For this reason, we are carefully looking for a supportive living setting for this patient, preferably one that has the resources necessary to assist the resistant, not adherent to patient. 12/24 - remains better compliant with PO meds 12/25 - Takes meds when he thinks he needs them, but voiced some question about taking anything regularly after discharge. 12/29 -the patient refused a dose of haloperidol yesterday and received haloperidol 10 mg intramuscularly over objection from disease no holes were required and the patient was cooperative with the injection closed with disease. Afterwards, he wondered out loud why he had refused the medication, knowing that he would get it "one way or the other." Because the patient seemed to have responded well, in terms of his disorganized thinking, to the intramuscular dose of haloperidol, there has been some discussion in the team regarding the question of "cheeking" his oral medications. However, the explanation may be that haloperidol 10 mg IM is more potent than orally. In any event, today the patient commits to continued adherence with his medications as he acknowledges that he does feel that they have been helpful to him. Present on Admission?: Yes (3) Substance abuse: 12/14 -patient is not forthcoming, but mother reports he has been abusing alcohol, cough syrup, diphenhydramine, and likely other substances. We will monitor for withdrawal symptoms, and as his psychosis improves, will provide psychoeducation about the risks of substance abuse and recommendations for abstinence. -Avoid controlled substances given high risk of abuse/misuse/negative outcomes. 12/15 -It is recognized that the patient has an extensive history of abusing chemical substances, and it is generally agreed that use of controlled substances does pose significant risk of abuse and other negative outcomes in the long-term. However, the patient's irritability and unwillingness to cooperate with essential medications, such as haloperidol, as well as his history of physical aggression towards others, may be mitigated by the temporary use of a benzodiazepine. Today, a single dose of lorazepam seems to have been effective in helping the patient maintain composure during an involuntary commitment hearing that did not go in his favor, and staff have noticed that he has been somewhat more cooperative today, possibly in response to the dose of lorazepam. Accordingly, staff will continue to offer the patient as needed lorazepam. 12/21 -admission drug screen was positive for benzodiazepines, with significantly elevated temazepam (> 2000) and elevated oxazepam levels. Although he denied taking benzodiazepines prior to admission, he clearly was accessing them somehow. 12/22 -the patient is able to give what may be referred to as "lip service" to the concept of abstinence from drugs of abuse, but he seems to have little or no insight into the risks associated with his abuse of mood altering chemical substances, particularly within the context of his psychiatric illness. Again, a whole will be to identify an aftercare placement that we will be able to monitor him more assiduously for access to abusable chemical substances, including prescription medications, alcohol, and other drugs of abuse. Present on Admission?: Yes (4) Antisocial personality disorder: 12/14 -extensive, lifelong history provided by adoptive mother which reveals a pervasive pattern of disregard for and violation of the rights of others which started at age 8 or earlier, failure to conform to social norms with respect to lawful behaviors as indicated by repeatedly performing acts that are grounds for arrest, deceitfulness, impulsivity and failure to plan ahead, irritability and aggressiveness, reckless disregard for safety of self and others, consistent irresponsibility, and lack of remorse. 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 -Reviewed expectations with respect to behavior on the unit. 12/15 -The patient's history of antisocial behavior is noted, and antisocial personality will not be a focus of treatment during this hospitalization. However, the record indicates that the patient's antisocial behaviors, which are lifelong, are mitigated to some extent when he is being successfully treated for his psychotic disorder. Accordingly, the approach will be to address his antisocial behaviors by focusing on addressing his psychosis. 12/22 -The patient's long-standing history of antisocial behaviorbehavior which reportedly predates the onset of his symptoms of schizophreniahave not been a focus of treatment and are unlikely to change. Careful monitoring, diversion, containment to the degree possible, to containment of the most appropriate interventions for this problem. Present on Admission?: Yes Inventory Assets Strengths: Good physical health. Able to form alliances with certain peers. Concerned and supportive parents. Needs: Continued adherence with psychiatric medications. Sustained recovery from psychotic features. Risk Factors Assessment Male: Yes : Yes Do You Have Access To A Gun?: No Health Problems: Yes Mental Health Diagnoses: Yes Substance Use Disorders: Yes Previous Attempt: No Previous Psychiatric Hospitalization: Yes Hopelessness: No Smoker: Yes Protective Factors Assessment Presybeterian Beliefs: No : No Responsible for Young Children: No Employed: No Stable Relationships: No Supportive Family: Yes Good Rapport with Provider: No Absence of Any Risk Factors Above: No Interval History Identifying Information APRIL GONZALEZ is a 43-year-old M who lives in [place] with his parents, has a history of a psychotic disorder (specific diagnosis not yet known, but history of multiple previous hospitalizations including a 1 year state hospitalization in [place]), and was admitted on 12/14/18 03:41 on a 302 involuntary commitment for psychosis, treatment noncompliance, and erratic, unsafe behavior. He is on a 304 involuntary commitment as of 12/26/2018. Chief Complaint "I think I'm doing okay". Review of Systems Sleep Information Total Hours of Sleep: 6 Sleep Comments: pt given vistaril per rn. pt on q-15 minute checks Meal Information Percent Meal Consumed - Breakfast: 100 Percent Meal Consumed - Lunch: 100 Percent Meal Consumed - Dinner: 100 Nutrition Comment: pt. sleeping Subjective Subjective Patient was seen & assessed and interval progress reviewed with Treatment Team. I met individually with the patient in order to assess his current mental status, evaluate his response to treatment, address issues and concerns that may arise, and coordinate any necessary treatment plan changes with the patient. The patient begins by telling me that he feels that he is doing "better" today. I commented on the fact that he reportedly had refused his Haldol yesterday, and he told me that he regrets doing that, and notes that he was given intramuscular injection. I told the patient that I know that he had complained of feeling tired after getting dosages of Haldol, but he said that he does not experience any side effects associated with Haldol, other than sometimes "feeling kind of nervous." (The patient is currently receiving benztropine.) Staff reports the patient's thinking has remained fairly disorganized, and the topics he raises and conversations are often on to the threat of the discussion. He is also been noted to laugh inappropriately, possibly suggestive of a response to internal stimuli, such as a perceptual disturbance. Today, however, he appears to be wilbur ewhat more organized than previously. He tells me that he is eager to participate in an activity that is scheduled for this afternoon. I was able to talk with him about adding clozapine, medication that the patient had tolerated well in the past, and that it is also noted that the patient reportedly responded favorably to Clozaril before discontinuing it independently last June. The patient tells me that he feels that clozapine had helped him in the past, but he is concerned about possible weight gain associated with clozapine. We discussed strategies that he may employ to avoid or mitigate weight gain, and after reviewing the material risks and anticipated benefits of clozapine with the patient including but not limited to agranulocytosis) the patient told me that he was familiar with the medication and "give it another try." Physical Exam Psychiatric Orientation: oriented x 3 Apperance: appropriately dressed Eye Contact: + fair eye contact Motor Behavior: steady gait and station Speech: normal rate/rhythm/volume of speech Affect: + blunted affect "Pretty good." Thought Process: + tangential thought process, + perseveration and + concrete thought process Thought Content: reality based without delusions Suicidal Thoughts: denies suicidal thoughts Homicidal Thoughts: denies homicidal thoughts Hallucinations: no auditory 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 However staff observe the patient laughing inappropriately in various settings, a circumstance that may suggest response to internal stimuli. Cognition: recent memory grossly intact Estimated Intelligence: + below average estimated intelligence Insight: + impaired insight Judgement: + impaired judgement Vital Signs (Past 24 Hours) Last Vital Signs Temp 36.3 C L 12/28/18 06:45 Pulse 96 H 12/28/18 06:46 Resp 18 12/28/18 06:45 BP 106/61 12/28/18 06:46 Pulse Ox 97 12/14/18 03:38 Results & Data Current Inpatient Medications Current Inpatient Medications: Current Inpatient Medications Acetaminophen (Tylenol) 650 mg PO Q4H PRN PRN Reason: Headache or Minor Fever Stop: 01/13/19 02:51 Last Admin: 12/29/18 11:23 Dose: 650 mg Documented by: Al Hydrox/Mg Hydrox/Simethicone (Maalox) 30 ml PO Q4H PRN PRN Reason: GI Upset Stop: 01/13/19 02:51 Benztropine Mesylate (Cogentin) 1 mg PO BID PRN PRN Reason: akathisia Stop: 01/26/19 20:59 Last Admin: 12/27/18 20:05 Dose: 1 mg Documented by: Bismuth Subsalicylate (Kaopectate) 15 ml PO PRN PRN PRN Reason: Loose Stool Stop: 01/13/19 02:51 Docusate Sodium (Colace) 100 mg PO HS KELLY Stop: 01/23/19 21:59 Last Admin: 12/28/18 21:14 Dose: Not Given Documented by: Haloperidol (Haldol) 10 mg PO Q4 PRN PRN Reason: psychosis or agitation Stop: 01/13/19 03:55 Last Admin: 12/26/18 13:25 Dose: 10 mg Documented by: Haloperidol (Haldol) 10 mg PO 0900,1600 KELLY Stop: 01/20/19 09:59 Last Admin: 12/29/18 09:13 Dose: 10 mg Documented by: Haloperidol Lactate (Haldol) 10 mg IM Q4 PRN PRN Reason: psychosis or agitation Stop: 01/13/19 03:55 Last Admin: 12/28/18 16:54 Dose: 10 mg Documented by: Haloperidol Lactate (Haldol) 10 mg IM 0900,1600 PRN PRN Reason: refusal of PO Stop: 01/20/19 09:56 Hydroxyzine HCl (Vistaril) 25 mg PO Q4H PRN PRN Reason: Anxiety Stop: 01/13/19 02:51 Last Admin: 12/29/18 09:32 Dose: 25 mg Documented by: Hydroxyzine HCl (Vistaril) 50 mg PO HSZ PRN PRN Reason: Insomnia Stop: 01/13/19 02:51 Last Admin: 12/28/18 21:30 Dose: 50 mg Documented by: Lorazepam (Ativan) 1 mg PO Q4 PRN PRN Reason: Agitation Stop: 01/13/19 03:52 Last Admin: 12/27/18 19:29 Dose: 1 mg Documented by: Lorazepam (Ativan) 1 mg IM Q4 PRN PRN Reason: Agitation Stop: 01/13/19 03:54 Magnesium Hydroxide (Milk Of Magnesia) 30 ml PO DAILY PRN PRN Reason: Heartburn Stop: 01/13/19 02:51 Menthol (Nice) 1 be BUCCAL Q2H PRN PRN Reason: Sore Throat Stop: 01/19/19 20:40 Last Admin: 12/20/18 20:52 Dose: 1 be Documented by: Miscellaneous (Remove Nicoderm Patch) 1 ea N/A DAILY@2100 KELLY Stop: 01/13/19 20:59 Last Admin: 12/28/18 21:14 Dose: 1 ea Documented by: Nicotine (Nicoderm Cq) 21 mg TD QAM [facility] Stop: 01/13/19 08:59 Last Admin: 12/29/18 09:14 Dose: Not Given Documented by: Nicotine Polacrilex (Nicorette 2mg) 1 piece MT UD PRN PRN Reason: Nicotine Withdrawal Stop: 01/13/19 08:20 Last Admin: 12/27/18 21:38 Dose: 1 piece Documented by: Sodium Chloride ([place] Nasal) 1 - 2 sprays NA PRN PRN PRN Reason: Nasal Dryness/Congestion Stop: 01/13/19 02:51 Post Discharge Appointments Primary Care Physician Name Of Family Doctor: Denies Therapist Name of Therapist: Denies Marketing Strategy Lead Name of Marketing Strategy Lead: [facility] Phone Number for Marketing Strategy Lead: [phone] Case Management Appointment Comment: [address], [address], [place], [place] CPT Code CPT Code 14822
[2018-12-29 14:51] LABS: Basophils # (auto) 0.02 K/uL (0-0.2); Basophils % (auto) 0.3 %; Eosinophils # (auto) 0.22 K/uL (0-0.5); Hematocrit (blood only) 44.7 % (42-52); Hemoglobin 15.6 g/dL (14.0-18.0); Immature Granulocytes # (auto) 0.03 K/uL (0.00-0.02); Immature Granulocytes % (auto) 0.4 %; Lymphocytes # (auto) 2.41 K/uL (1.2-3.4); Lymphocytes % (auto) 32.4 %; Mean Corpuscular Hgb Conc 34.9 g/dL (32-36); Mean Corpuscular Volume 90.7 fL (80-100); Monocytes % (auto) 9.4 %; Neutrophils # (auto) 4.06 K/uL (1.4-6.5); Neutrophils % (auto) 54.5 %; Platelet Count 265 K/uL (130-400); RDW Coefficient of Variation 13.4 % (11.5-14.5); RDW Standard Deviation 44.2 fL (36.4-46.3); Red Blood Count 4.93 M/uL (4.7-6.1); White Blood Count 7.44 K/uL (4.8-10.8)
[2018-12-29] MEDS: LORazepam 1 MG TAB PO PRN (18:13)
[2018-12-29] MEDS ORDERED: cloZAPine 25 MG TAB PO SCH (21:00)
[2018-12-29] MEDS: cloZAPine 25 MG TAB PO SCH (21:27)
[2018-12-29] MEDS: DOCUSATE SODIUM 100 MG CAP PO SCH (21:27)
[2018-12-30] MEDS: cloZAPine 25 MG TAB PO SCH ×2 (07:02→21:21)
[2018-12-30] MEDS: NICOTINE 21 MG/24 HR TDSY TD SCH (07:03)
[2018-12-30] MEDS: HALOPERIDOL 5 MG TAB PO SCH ×2 (07:03→16:11)
--- NOTE | 2018-12-30 10:02 | Psychiatric Progress Note ---
Date of Service December 30, 2018 Impression / Recommendations Impression Although the patient's improvement has not been steady, the slope of what appears to be a somewhat sinusoidal curve has generally been upward. He seems to have shown an incremental improvement following a intramuscular dose of haloperidol yesterday which has caused some of the team to question whether he may be, at least at times, "cheeking" his oral medications. However, staff reports that they have been checking him quite closely and observing him for extended periods following oral administration, and they have watched him eat and drink fluids after taking his oral medications. Today, the patient is not asking to leave the hospital, and tells me that he recognizes that he is still waiting for a place to go. He has engaged in certain behaviors that have caused the staff to suspect that he may be thinking about elopement, and for that reason the unit is observing elopement precautions. The patient's thinking remains disorganized, and his behaviors include his periodically taking and secreting items on the unit that do not belong to him. Today, for the first time in my experience with this patient, he was able to voice an opinion that he is responding favorably to medication. He notes several possible side effects, but feels that, overall, he is tolerating the medication well and is offering no complaints. Staff observation remains of the patient tends to sleep a great deal during the day and sometimes is awake at night. Also today the patient was willing to discuss resuming clozapine, medication that has reportedly been quite effective in the past for this patient, and also one that he reportedly has tolerated well. He did voice some concern that he may gain weight as a side effect of clozapine, but was able to consider strategies to avoid or mitigate weight gain on clozapine. In the past, the combination of haloperidol and clozapine reportedly has been the most effective, but, did sedate during the hospitalization, the patient has said that he will not consider resuming clozapine. 12/29, he acknowledged that clozapine has helped him in the past and was willing to give it "another try." As of 12/30, he is comofrtable with the medication being titrated up as appropriate. ANC/CBC wnl on 12/29 and ordered for 01/05. (1) Thought disorder: 12/14 -patient is a poor historian, but mother provides historical information. 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 For now we will collect psychosis not otherwise specified. -Patient is refusing to sign releases for previous outpatient providers in [place], and staff contacted them but they refused to provide any information without a signed release. -Medically necessary private room due to psychosis, erratic and disorganized behavior, history of violence, and aggressive behavior and threats to harm others here in the hospital. -Start haloperidol 5 mg twice daily, as patient has a previous good response to Haldol Decanoate and clozapine. Recommend medications over objection once he is on a 303 involuntary commitment and has been seen by a second physician, as he has severe psychotic symptoms which are preventing him from accurately interpreting reality, influencing his behavior, and placing him at risk of harm to both himself and others as he has been acting on his delusions, experiencing auditory and visual 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, paranoia, engaging in unsafe behaviors including driving when he does not have a license or the knowledge to do so, abusing substances, and has been threatening towards others. He demonstrates no insight into his condition, but available information indicates response to treatment with antipsychotic medications in the past. -Medically necessary private room due to psychosis, aggressive behavior, and threats to harm others. -We will need to check fasting lipid profile and glucose once he is cooperative. -Excused from groups from the time being until able to participate appropriately. -Refusing to sign releases for parents, but mother is petitioner, so can inform her of the 303 hearing. 4/5 -The patient did except a single dose of lorazepam this morning, and did seem to be somewhat more calm. He was mildly labile during his involuntary commitment hearing this morning, but managed to maintain control and was not aggressive during the hearing or upon learning that he had been retained by the classifications officer cc/cm. Accordingly, we will continue to offer him lorazepam, since this medication in his case does not seem to be disinhibiting and, at least today, appeared to have helped him manage angry impulses during his involuntary commitment hearing. -The treatment team and I agree that, if possible, we would like to convince the patient to voluntarily take oral medications. Reports are that this morning he came close to taking oral haloperidol, but at the last minute declined. He is telling us that he will consistently refused medications, but our hope is that as we are able to gain his trust he will become more cooperative. We will continue to try to convince the patient to take oral haloperidol, but if this is unsuccessful we will seek two physician approval of medication over objection and give Haldol 5 mg IM BID. 12/16--tolerating Haldol, titrate to 10 mg BID. 12/18 - Continue haldol 10 mg bid - Continue discussion about LAMA - Encourage better sleep hygiene, staying awake in the day to promote sleep at night. 12/19 - Patient allowed labs to be drawn. FBS 93, FLP WNL with the exception of triglycerides of 186. Counseled to avoid fatty red meats, saturated fats. 12/20 -Again discussed the recommendations for long-acting injectable antipsychotic medication with the patient, which he initially declined because he said medications are poison. He has a meeting with his family this afternoon, and I will order the first loading dose of Haldol Decanoate 50 mg IM to be administered this afternoon, and if he is unwilling to take it, we will likely need to proceed with medications over objection tomorrow. We will try to encourage him to accept the intervention, as he reportedly did fairly well on this medication in the past. 12/21 -proceed with medications over objection: Haldol Decanoate 100 mg IM today, and Haldol 10 mg IM for refusal of oral Haldol. He will need 100-200 mg of Haldol Decanoate every 4 weeks based on his current oral dose, so will continue oral haloperidol for now until we can monitor response to the decanoate. 12/22 -the patient received Haldol Decanoate intramuscularly today, as a medica tion over objection. He tolerated the injection well, and today tells me that he "feels pretty good." -Today, the patient's associations seemed to be fairly tight on examination. He tends to be somewhat concrete in his thinking, but, as above, he did seem able to understand our rationale for continuing inpatient treatment at this point. 12/23 - tolerating halol dec w/o EPS or other complaints. will need to consider reduction of oral dose in approx 1 week. 12/24 - pt remains less acutely behaviorally disturbed since Haldol dec injection last however evidenced mild acting out when physically uncomfortable today - will add standing docusate 100mg po qhs and encourage oral hydration today for complaint of hard stool - meeting w/ county services tomorrow to explore dispo options 12/25 - Increase in irritability - Planning meeting held with [facility]: possibility for CRR vs state hospital - Continue current meds and encourage prns 12/26 - 304 granted. Meeting with [facility], patient and parents held yesterday: parents confirmed he cannot return home. Treatment team and [facility] recommends state hospitalization, as patient not appropriate for CRR placement due to severity of symptoms and unwillingness for outpatient treatment and medications. 12/27 - Continue current medication regimen - Orders placed for necessary EKG, TB skin test to accompany Gómez messina - Place on high elopement precautions last evening due to suspicious loitering at the entryway of the unit - Reviewed records from [facility] - previous diagnoses were schizoaffective disorder and substance abuse 12/28 - Continue current medication regimen - EKG and PPD completed yesterday - PPD will need read on 12/30 12/29 -Add clozapine 12.5 mg BID and increase as tolerated by 25 mg per day to a dose of 300 mg daily (in two divided dosages, or all at bedtime).' 12/30 -titrating clozapine to 12.5 am and 25mg hs for 12/30 with plan to increase to 25mg bid on 12/31 and likely further titration if tolerating -maintained Haldol decanoate and Haldol po unchanged for now, with consideration of weaning Haldol po dose if clozapine is effective ,, although pt appears to have history of both Haldol forms being rx'd while on past clozapine med trial. Pt has been observed by staff to be improving as obtaining medication of haldol (including the immediate IM doses) (2) Noncompliance with medications: 12/14 -stopped his medications 6 months ago and has decompensated since. Would benefit from a long-acting injectable, and either long-term inpatient treatment at the [facility] or involuntary outpatient treatment.. 12/15 -The patient's psychosis and severely impaired insight seem to be making him and accessible to reason, regarding the essential importance of psychiatric medications. There is a past history of favorable response to haloperidol as well as to clozapine. It is agreed that the patient would in all likelihood benefit from a long-acting injectable antipsychotic medication, given his history of recurrent medication nonadherence. 12/16--currently taking PO for a few doses, is on extended involuntary commitment and clearly ongoing schizophrenia which will fail to improve for him to be able to provide self-care without ongoing treatments on inpatient unit and medications over objection. Without antipsychotic medication he is at significant risk of /serious disability and a danger to himself/others. Dr. Srinivasan could provide second opinion if he refuses PO med. 12/18- Patient refusing to consider LAMA at this time. Will continue to encourage 12/21 -patient continues to refuse Haldol Decanoate, and is now also refusing oral Haldol. We will proceed with medications over objection, as he has a d iagnosis of primary thought disorder, has benefited from Haldol Decanoate in the past, he is actively delusional and is refusing medications due to psychotic thought processes, and is at risk of harm to both himself and others if he remains untreated. He has a significant history of violence tied to his delusions, and it will be important to get his symptoms adequately managed to decrease the risk of violence towards others here in the hospital. 12/22 -medication adherence is most certainly going issue with this patient. We are recommending the continued use of Depo forms of antipsychotic medications, but, in the past, the patient has simply refused to return to the office of the healthcare professional who is administering the sectionas was the case last year when, after doing reasonably well, he stopped going for treatment, and stopped excepting medications. For this reason, we are carefully looking for a supportive living setting for this patient, preferably one that has the res ources necessary to assist the resistant, not adherent to patient. 12/24 - remains better compliant with PO meds 12/25 - Takes meds when he thinks he needs them, but voiced some question about taking anything regularly after discharge. 12/29 -the patient refused a dose of haloperidol yesterday and received haloperidol 10 mg intramuscularly over objection from disease no holes were required and the patient was cooperative with the injection closed with disease. Afterwards, he wondered out loud why he had refused the medication, knowing that he would get it "one way or the other." Because the patient seemed to have responded well, in terms of his disorganized thinking, to the intramuscular dose of haloperidol, there has been some discussion in the team regarding the question of "cheeking" his oral medications. However, the explanation may be that haloperidol 10 mg IM is more potent than orally. In any event, today the patient commits to continued adherence with his medications as he acknowledges that he does feel that they have been helpful to him. (3) Substance abuse: 12/14 -patient is not forthcoming, but mother reports he has been abusing alcohol, cough syrup, diphenhydramine, and likely other substances. We will monitor for withdrawal symptoms, and as his psychosis improves, will provide psychoeducation about the risks of substance abuse and recommendations for abstinence. -Avoid controlled substances given high risk of abuse/misuse/negative outcomes. 12/15 -It is recognized that the patient has an extensive history of abusing chemical substances, and it is generally agreed that use of controlled substances does pose significant risk of abuse and other negative outcomes in the long-term. However, the patient's irritability and unwillingness to cooperate with essential medications, such as haloperidol, as well as his history of physical aggression towards others, may be mitigated by the temporary use of a benzodiazepine. Today, a single dose of lorazepam seems to have been effective in helping the patient maintain composure during an involuntary commitment hearing that did not go in his favor, and staff have noticed that he has been somewhat more cooperative today, possibly in response to the dose of lorazepam. Accordingly, staff will continue to offer the patient as needed lorazepam. 12/21 -admission drug screen was positive for benzodiazepines, with significantly elevated temazepam (> 2000) and elevated oxazepam levels. Although he denied taking benzodiazepines prior to admission, he clearly was accessing them somehow. 12/22 -the patient is able to give what may be referred to as "lip service" to the concept of abstinence from drugs of abuse, but he seems to have little or no insight into the risks associated with his abuse of mood altering chemical substances, particularly within the context of his psychiatric illness. Again, a whole will be to identify an aftercare placement that we will be able to monitor him more assiduously for access to abusable chemical substances, including prescription medications, alcohol, and other drugs of abuse. (4) Antisocial personality disorder: 12/14 -extensive, lifelong history provided by adoptive mother which reveals a pervasive pattern of disregard for and violation of the rights of others which started at age 8 or earlier, failure to conform to social norms with respect to lawful behaviors as indicated by repeatedly performing acts that are grounds for arrest, deceitfulness, impulsivity and failure to plan ahead, irritability and aggressiveness, reckless disregard for safety of self and others, consistent irresponsibility, and lack of remorse. 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 -Reviewed expectations with respect to behavior on the unit. 12/15 -The patient's history of antisocial behavior is noted, and antisocial personality will not be a focus of treatment during this hospitalization. However, the record indicates that the patient's antisocial behaviors, which are lifelong, are mitigated to some extent when he is being successfully treated for his psychotic disorder. Accordingly, the approach will be to address his antisocial behaviors by focusing on addressing his psychosis. 12/22 -The patient's long-standing history of antisocial behaviorbehavior which reportedly predates the onset of his symptoms of schizophreniahave not been a focus of treatment and are unlikely to change. Careful monitoring, diversion, containment to the degree possible, to containment of the most appropriate interventions for this problem. Inventory Assets Strengths: Good physical health. Able to form alliances with certain peers. Concerned and supportive parents. Needs: Continued adherence with psychiatric medications. Sustained recovery from psychotic features. Risk Factors Assessment Male: Yes : Yes Do You Have Access To A Gun?: No Health Problems: Yes Mental Health Diagnoses: Yes Substance Use Disorders: Yes Previous Attempt: No Previous Psychiatric Hospitalization: Yes Hopelessness: No Smoker: Yes Protective Factors Assessment Jainism Beliefs: No : No Responsible for Young Children: No Employed: No Stable Relationships: No Supportive Family: Yes Good Rapport with Provider: No Absence of Any Risk Factors Above: No Interval History Identifying Information APRIL GONZALEZ is a 43-year-old M who lives in [place] with his parents, has a history of a psychotic disorder (specific diagnosis not yet known, but history of multiple previous hospitalizations including a 1 year state hospitalization in [place]), and was admitted on 12/14/18 03:41 on a 302 involuntary commitment for psychosis, treatment noncompliance, and erratic, unsafe behavior. He is on a 304 involuntary commitment as of 12/26/2018. Chief Complaint "I am OK". Review of Systems Sleep Information Total Hours of Sleep: 6.25 Sleep Comments: up for a snack at 0330. Meal Information Percent Meal Consumed - Breakfast: 95 Percent Meal Consumed - Lunch: 100 Percent Meal Consumed - Dinner: 100 Nutrition Comment: pt. sleeping Subjective Subjective Patient was seen & assessed and interval progress reviewed with nursing and social work. Pt was seen in his room, awakened by data analyst report writer. He decided to nap instead of attending group but denied feeling more tired this morning then recent days. He denied s/e to start of clozapine along with Haldol medications. He denied AH today or yesterday. He denied VH or paranoid thinking. He denied feeling depressed in his mood or anxious. He denied insomnia concerns last night although staff report him being up for a snack in the middle of the night. He reporting eating his brekfast and having nl appetite. He reports awareness of aftercare plans. He denied any physical concerns besides some tiredness that he is not concerned about. staff reported some mild improvements in interactions with pt yesterday Physical Exam Psychiatric Orientation: alert, oriented x 3, cooperative and + guarded (only superficially cooperative) Apperance: appropriately dressed Eye Contact: + fair eye contact Motor Behavior: no abnormal motor movements Speech: normal rate/rhythm/volume of speech; no pressured speech Affect: + blunted affect Mood: no depressed mood and no anxious mood Thought Process: goal directed thought process and + concrete thought process Thought Content: + paranoid and reality based without delusions Suicidal Thoughts: denies suicidal thoughts Homicidal Thoughts: denies homicidal thoughts Hallucinations: no auditory 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 and no visual 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 Cognition: recent memory grossly intact, attention grossly intact and language grossly intact; + remote memory not intact Estimated Intelligence: consistent with education level and + below average estimated intelligence Insight: + poor insight Judgement: + poor judgement Vital Signs (Past 24 Hours) Last Vital Signs Temp 36.5 C 12/30/18 07:10 Pulse 92 H 12/30/18 07:11 Resp 18 12/30/18 07:10 BP 114/61 12/30/18 07:11 Pulse Ox 97 12/14/18 03:38 Results & Data Laboratory Results Laboratory Results - last 24 hr 12/29/18 14:37 WBC 7.44 RBC 4.93 Hgb 15.6 Hct 44.7 MCV 90.7 MCH 31.6 MCHC 34.9 RDW Std Deviation 44.2 RDW Coeff of Rubens 13.4 Plt Count 265 MPV 10.0 Immature Gran % (Auto) 0.4 Neut % (Auto) 54.5 Lymph % (Auto) 32.4 [place] % (Auto) 9.4 Eos % (Auto) 3.0 Baso % (Auto) 0.3 Immature Gran # (Auto) 0.03 H Neut # (Auto) 4.06 Lymph # (Auto) 2.41 [place] # (Auto) 0.70 H Eos # (Auto) 0.22 Baso # (Auto) 0.02 Current Inpatient Medications Current Inpatient Medications: Current Inpatient Medications Acetaminophen (Tylenol) 650 mg PO Q4H PRN PRN Reason: Headache or Minor Fever Stop: 01/13/19 02:51 Last Admin: 12/29/18 18:13 Dose: 650 mg Documented by: Al Hydrox/Mg Hydrox/Simethicone (Maalox) 30 ml PO Q4H PRN PRN Reason: GI Upset Stop: 01/13/19 02:51 Benztropine Mesylate (Cogentin) 1 mg PO BID PRN PRN Reason: akathisia Stop: 01/26/19 20:59 Last Admin: 12/27/18 20:05 Dose: 1 mg Documented by: Bismuth Subsalicylate (Kaopectate) 15 ml PO PRN PRN PRN Reason: Loose Stool Stop: 01/13/19 02:51 Clozapine (Clozaril) 12.5 mg PO BID [facility] Stop: 01/28/19 20:59 Last Admin: 12/30/18 07:02 Dose: 12.5 mg Documented by: Docusate Sodium (Colace) 100 mg PO HS [facility] Stop: 01/23/19 21:59 Last Admin: 12/29/18 21:27 Dose: 100 mg Documented by: Haloperidol (Haldol) 10 mg PO Q4 PRN PRN Reason: psychosis or agitation Stop: 01/13/19 03:55 Last Admin: 12/26/18 13:25 Dose: 10 mg Documented by: Haloperidol (Haldol) 10 mg PO 0900,1600 [facility] Stop: 01/20/19 09:59 Last Admin: 12/30/18 07:03 Dose: 10 mg Documented by: Haloperidol Lactate (Haldol) 10 mg IM Q4 PRN PRN Reason: psychosis or agitation Stop: 01/13/19 03:55 Last Admin: 12/28/18 16:54 Dose: 10 mg Documented by: Haloperidol Lactate (Haldol) 10 mg IM 0900,1600 PRN PRN Reason: refusal of PO Stop: 01/20/19 09:56 Hydroxyzine HCl (Vistaril) 25 mg PO Q4H PRN PRN Reason: Anxiety Stop: 01/13/19 02:51 Last Admin: 12/29/18 09:32 Dose: 25 mg Documented by: Hydroxyzine HCl (Vistaril) 50 mg PO HSZ PRN PRN Reason: Insomnia Stop: 01/13/19 02:51 Last Admin: 12/29/18 22:00 Dose: 50 mg Documented by: Lorazepam (Ativan) 1 mg PO Q4 PRN PRN Reason: Agitation Stop: 01/13/19 03:52 Last Admin: 12/29/18 18:13 Dose: 1 mg Documented by: Lorazepam (Ativan) 1 mg IM Q4 PRN PRN Reason: Agitation Stop: 01/13/19 03:54 Magnesium Hydroxide (Milk Of Magnesia) 30 ml PO DAILY PRN PRN Reason: Heartburn Stop: 01/13/19 02:51 Menthol (Nice) 1 be BUCCAL Q2H PRN PRN Reason: Sore Throat Stop: 01/19/19 20:40 Last Admin: 12/20/18 20:52 Dose: 1 be Documented by: Miscellaneous (Remove Nicoderm Patch) 1 ea N/A DAILY@2100 [facility] Stop: 01/13/19 20:59 Last Admin: 12/29/18 21:31 Dose: Not Given Documented by: Nicotine (Nicoderm Cq) 21 mg TD QAM [facility] Stop: 01/13/19 08:59 Last Admin: 12/30/18 07:03 Dose: Not Given Documented by: Nicotine Polacrilex (Nicorette 2mg) 1 piece MT UD PRN PRN Reason: Nicotine Withdrawal Stop: 01/13/19 08:20 Last Admin: 12/27/18 21:38 Dose: 1 piece Documented by: Sodium Chloride (Irion Nasal) 1 - 2 sprays NA PRN PRN PRN Reason: Nasal Dryness/Congestion Stop: 01/13/19 02:51 Post Discharge Appointments Primary Care Physician Name Of Family Doctor: Denies Therapist Name of Therapist: Denies Punch Card Operator Name of Punch Card Operator: [employer] Phone Number for Punch Card Operator: [phone] Case Management Appointment Comment: [address], [address], [place], [place] CPT Code CPT Code 58104
[2018-12-30] MEDS: LORazepam 1 MG TAB PO PRN (14:04)
[2018-12-30] MEDS: NICOTINE POLACRILEX 2 MG GUM MT PRN (20:40)
[2018-12-30] MEDS: DOCUSATE SODIUM 100 MG CAP PO SCH (21:21)
[2018-12-31] MEDS: NICOTINE 21 MG/24 HR TDSY TD SCH (08:35)
[2018-12-31] MEDS: cloZAPine 25 MG TAB PO SCH ×2 (08:35→21:15)
[2018-12-31] MEDS: HALOPERIDOL 5 MG TAB PO SCH ×2 (08:35→16:06)
[2018-12-31] MEDS: ACETAMINOPHEN 325 MG TAB PO PRN ×2 (11:05→18:54)
--- NOTE | 2018-12-31 11:38 | Psychiatric Progress Note ---
Date of Service December 31, 2018 Impression / Recommendations Impression Although the patient's improvement has not been steady, the slope of what appears to be a somewhat sinusoidal curve has generally been upward. He seems to have shown an incremental improvement following a intramuscular dose of haloperidol yesterday which has caused some of the team to question whether he may be, at least at times, "cheeking" his oral medications. However, staff reports that they have been checking him quite closely and observing him for extended periods following oral administration, and they have watched him eat and drink fluids after taking his oral medications. Today, the patient is not asking to leave the hospital, and tells me that he recognizes that he is still waiting for a place to go. He has engaged in certain behaviors that have caused the staff to suspect that he may be thinking about elopement, and for that reason the unit is observing elopement precautions. The patient's thinking remains disorganized, and his behaviors include his periodically taking and secreting items on the unit that do not belong to him. Today, for the first time in my experience with this patient, he was able to voice an opinion that he is responding favorably to medication. He notes several possible side effects, but feels that, overall, he is tolerating the medication well and is offering no complaints. Staff observation remains of the patient tends to sleep a great deal during the day and sometimes is awake at night. Also today the patient was willing to discuss resuming clozapine, medication that has reportedly been quite effective in the past for this patient, and also one that he reportedly has tolerated well. He did voice some concern that he may gain weight as a side effect of clozapine, but was able to consider strategies to avoid or mitigate weight gain on clozapine. In the past, the combination of haloperidol and clozapine reportedly has been the most effective, but, did sedate during the hospitalization, the patient has said that he will not consider resuming clozapine. 12/29, he acknowledged that clozapine has helped him in the past and was willing to give it "another try." As of 12/30, he is comofrtable with the medication being titrated up as appropriate. ANC/CBC wnl on 12/29 and ordered for 01/05. (1) Thought disorder: 12/14 -patient is a poor historian, but mother provides historical information. 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 For now we will collect psychosis not otherwise specified. -Patient is refusing to sign releases for previous outpatient providers in [place], and staff contacted them but they refused to provide any information without a signed release. -Medically necessary private room due to psychosis, erratic and disorganized behavior, history of violence, and aggressive behavior and threats to harm others here in the hospital. -Start haloperidol 5 mg twice daily, as patient has a previous good response to Haldol Decanoate and clozapine. Recommend medications over objection once he is on a 303 involuntary commitment and has been seen by a second physician, as he has severe psychotic symptoms which are preventing him from accurately interpreting reality, influencing his behavior, and placing him at risk of harm to both himself and others as he has been acting on his delusions, experiencing auditory and visual 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, paranoia, engaging in unsafe behaviors including driving when he does not have a license or the knowledge to do so, abusing substances, and has been threatening towards others. He demonstrates no insight into his condition, but available information indicates response to treatment with antipsychotic medications in the past. -Medically necessary private room due to psychosis, aggressive behavior, and threats to harm others. -We will need to check fasting lipid profile and glucose once he is cooperative. -Excused from groups from the time being until able to participate appropriately. -Refusing to sign releases for parents, but mother is petitioner, so can inform her of the 303 hearing. 4/5 -The patient did except a single dose of lorazepam this morning, and did seem to be somewhat more calm. He was mildly labile during his involuntary commitment hearing this morning, but managed to maintain control and was not aggressive during the hearing or upon learning that he had been retained by the newborn hearing screener. Accordingly, we will continue to offer him lorazepam, since this medication in his case does not seem to be disinhibiting and, at least today, appeared to have helped him manage angry impulses during his involuntary commitment hearing. -The treatment team and I agree that, if possible, we would like to convince the patient to voluntarily take oral medications. Reports are that this morning he came close to taking oral haloperidol, but at the last minute declined. He is telling us that he will consistently refused medications, but our hope is that as we are able to gain his trust he will become more cooperative. We will continue to try to convince the patient to take oral haloperidol, but if this is unsuccessful we will seek two physician approval of medication over objection and give Haldol 5 mg IM BID. 12/16--tolerating Haldol, titrate to 10 mg BID. 12/18 - Continue haldol 10 mg bid - Continue discussion about LAMA - Encourage better sleep hygiene, staying awake in the day to promote sleep at night. 12/19 - Patient allowed labs to be drawn. FBS 93, FLP WNL with the exception of triglycerides of 186. Counseled to avoid fatty red meats, saturated fats. 12/20 -Again discussed the recommendations for long-acting injectable antipsychotic medication with the patient, which he initially declined because he said medications are poison. He has a meeting with his family this afternoon, and I will order the first loading dose of Haldol Decanoate 50 mg IM to be administered this afternoon, and if he is unwilling to take it, we will likely need to proceed with medications over objection tomorrow. We will try to encourage him to accept the intervention, as he reportedly did fairly well on this medication in the past. 12/21 -proceed with medications over objection: Haldol Decanoate 100 mg IM today, and Haldol 10 mg IM for refusal of oral Haldol. He will need 100-200 mg of Haldol Decanoate every 4 weeks based on his current oral dose, so will continue oral haloperidol for now until we can monitor response to the decanoate. 12/22 -the patient received Haldol Decanoate intramuscularly today, as a medica tion over objection. He tolerated the injection well, and today tells me that he "feels pretty good." -Today, the patient's associations seemed to be fairly tight on examination. He tends to be somewhat concrete in his thinking, but, as above, he did seem able to understand our rationale for continuing inpatient treatment at this point. 12/23 - tolerating halol dec w/o EPS or other complaints. will need to consider reduction of oral dose in approx 1 week. 12/24 - pt remains less acutely behaviorally disturbed since Haldol dec injection last however evidenced mild acting out when physically uncomfortable today - will add standing docusate 100mg po qhs and encourage oral hydration today for complaint of hard stool - meeting w/ county services tomorrow to explore dispo options 12/25 - Increase in irritability - Planning meeting held with [facility]: possibility for CRR vs state hospital - Continue current meds and encourage prns 12/26 - 304 granted. Meeting with [facility], patient and parents held yesterday: parents confirmed he cannot return home. Treatment team and [facility] recommends state hospitalization, as patient not appropriate for CRR placement due to severity of symptoms and unwillingness for outpatient treatment and medications. 12/27 - Continue current medication regimen - Orders placed for necessary EKG, TB skin test to accompany Gómez messina - Place on high elopement precautions last evening due to suspicious loitering at the entryway of the unit - Reviewed records from [facility] - previous diagnoses were schizoaffective disorder and substance abuse 12/28 - Continue current medication regimen - EKG and PPD completed yesterday - PPD will need read on 12/30 12/29 -Add clozapine 12.5 mg BID and increase as tolerated by 25 mg per day to a dose of 300 mg daily (in two divided dosages, or all at bedtime).' 12/30 -titrating clozapine to 12.5 am and 25mg hs for 12/30 with plan to increase to 25mg bid on 12/31 and likely further titration if tolerating -maintained Haldol decanoate and Haldol po unchanged for now, with consideration of weaning Haldol po dose if clozapine is effective ,, although pt appears to have history of both Haldol forms being rx'd while on past clozapine med trial. Pt has been observed by staff to be improving as obtaining medication of haldol (including the immediate IM doses) 12/31 close monitoring for checking, continue plan above for IM Haldol over objection if checking haldol scheduled doses. Maintain clozapine dosing plan for now with potential re-considering clozapine plan if compklaince issues are occuring. Consider further titration of haldol decanoate as appropaite. (2) Noncompliance with medications: 12/14 -stopped his medications 6 months ago and has decompensated since. Would benefit from a long-acting injectable, and either long-term inpatient treatment at the [facility] or involuntary outpatient treatment.. 12/15 -The patient's psychosis and severely impaired insight seem to be making him and accessible to reason, regarding the essential importance of psychiatric medications. There is a past history of favorable response to haloperidol as well as to clozapine. It is agreed that the patient would in all likelihood benefit from a long-acting injectable antipsychotic medication, given his history of recurrent medication nonadherence. 12/16--currently taking PO for a few doses, is on extended involuntary commitment and clearly ongoing schizophrenia which will fail to improve for him to be able to provide self-care without ongoing treatments on inpatient unit and medications over objection. Without antipsychotic medication he is at significant risk of /serious disability and a danger to himself/others. Dr. Srinivasan could provide second opinion if he refuses PO med. 12/18- Patient refusing to consider LAMA at this time. Will continue to encourage 12/21 -patient continues to refuse Haldol Decanoate, and is now also refusing oral Haldol. We will proceed with medications over objection, as he has a diagnosis of primary thought disorder, has benefited from Haldol Decanoate in the past, he is actively delusional and is refusing medications due to psychotic thought processes, and is at risk of harm to both himself and others if he remains untreated. He has a significant history of violence tied to his delusions, and it will be important to get his symptoms adequately managed to decrease the risk of violence towards others here in the hospital. 12/22 -medication adherence is most certainly going issue with this patient. We are recommending the continued use of Depo forms of antipsychotic medications, but, in the past, the patient has simply refused to return to the office of the healthcare professional who is administering the sectionas was the case last year when, after doing reasonably well, he stopped going for treatment, and stopped excepting medications. For this reason, we are carefully looking for a supportive living setting for this patient, preferably one that has the resources necessary to assist the resistant, not adherent to patient. 12/24 - remains better compliant with PO meds 12/25 - Takes meds when he thinks he needs them, but voiced some question about taking anything regularly after discharge. 12/29 -the patient refused a dose of haloperidol yesterday and received haloperidol 10 mg intramuscularly over objection from disease no holes were required and the patient was cooperative with the injection closed with disease. Afterwards, he wondered out loud why he had refused the medication, knowing that he would get it "one way or the other." Because the patient seemed to have responded well, in terms of his disorganized thinking, to the intramuscular dose of haloperidol, there has been some discussion in the team regarding the question of "cheeking" his oral medications. However, the explanation may be that haloperidol 10 mg IM is more potent than orally. In any event, today the patient commits to continued adherence with his medications as he acknowledges that he does feel that they have been helpful to him. 12/31 -potential signs of non compliance 12/30 and 12/31, consider further titration of haldol deaconate as appropriate to help ensure as full of dose being obtained as possible. maintained plan of haldol IM injections for non complaince of haldol po doses (3) Substance abuse: 12/14 -patient is not forthcoming, but mother reports he has been abusing alcohol, cough syrup, diphenhydramine, and likely other substances. We will monitor for withdrawal symptoms, and as his psychosis improves, will provide psychoeducation about the risks of substance abuse and recommendations for abstinence. -Avoid controlled substances given high risk of abuse/misuse/negative outcomes. 12/15 -It is recognized that the patient has an extensive history of abusing chemical substances, and it is generally agreed that use of controlled substances does pose significant risk of abuse and other negative outcomes in the long-term. However, the patient's irritability and unwillingness to cooperate with essential medications, such as haloperidol, as well as his history of physical aggression towards others, may be mitigated by the temporary use of a benzodiazepine. Today, a single dose of lorazepam seems to have been effective in helping the patient maintain composure during an involuntary commitment hearing that did not go in his favor, and staff have noticed that he has been somewhat more cooperative today, possibly in response to the dose of lorazepam. Accordingly, staff will continue to offer the patient as needed lorazepam. 12/21 -admission drug screen was positive for benzodiazepines, with significantly elevated temazepam (> 2000) and elevated oxazepam levels. Although he denied taking benzodiazepines prior to admission, he clearly was accessing them somehow. 12/22 -the patient is able to give what may be referred to as "lip service" to the concept of abstinence from drugs of abuse, but he seems to have little or no insight into the risks associated with his abuse of mood altering chemical substances, particularly within the context of his psychiatric illness. Again, a whole will be to identify an aftercare placement that we will be able to monitor him more assiduously for access to abusable chemical substances, including prescription medications, alcohol, and other drugs of abuse. (4) Antisocial personality disorder: 12/14 -extensive, lifelong history provided by adoptive mother which reveals a pervasive pattern of disregard for and violation of the rights of others which started at age 8 or earlier, failure to conform to social norms with respect to lawful behaviors as indicated by repeatedly performing acts that are grounds for arrest, deceitfulness, impulsivity and failure to plan ahead, irritability and aggressiveness, reckless disregard for safety of self and others, consistent irresponsibility, and lack of remorse. 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 -Reviewed expectations with respect to behavior on the unit. 12/15 -The patient's history of antisocial behavior is noted, and antisocial personality will not be a focus of treatment during this hospitalization. However, the record indicates that the patient's antisocial behaviors, which are lifelong, are mitigated to some extent when he is being successfully treated for his psychotic disorder. Accordingly, the approach will be to address his antisocial behaviors by focusing on addressing his psychosis. 12/22 -The patient's long-standing history of antisocial behaviorbehavior which reportedly predates the onset of his symptoms of schizophreniahave not been a focus of treatment and are unlikely to change. Careful monitoring, diversion, containment to the degree possible, to containment of the most appropriate interventions for this problem. Inventory Assets Strengths: Good physical health. Able to form alliances with certain peers. Concerned and supportive parents. Needs: Continued adherence with psychiatric medications. Sustained recovery from psychotic features. Risk Factors Assessment Male: Yes : Yes Do You Have Access To A Gun?: No Health Problems: Yes Mental Health Diagnoses: Yes Substance Use Disorders: Yes Previous Attempt: No Previous Psychiatric Hospitalization: Yes Hopelessness: No Smoker: Yes Protective Factors Assessment Orthodox Beliefs: No : No Responsible for Young Children: No Employed: No Stable Relationships: No Supportive Family: Yes Good Rapport with Provider: No Absence of Any Risk Factors Above: No Interval History Identifying Information APRIL GONZALEZ is a 43-year-old M who lives in [place] with his parents, has a history of a psychotic disorder (specific diagnosis not yet known, but history of multiple previous hospitalizations including a 1 year state hospitalization in [place]), and was admitted on 12/14/18 03:41 on a 302 involuntary commitment for psychosis, treatment noncompliance, and erratic, unsafe behavior. He is on a 304 involuntary commitment as of 12/26/2018. Chief Complaint "I am OK". Review of Systems Sleep Information Total Hours of Sleep: 7 Sleep Comments: up for a snack at 0330. Meal Information Percent Meal Consumed - Breakfast: 100 Percent Meal Consumed - Lunch: 100 Percent Meal Consumed - Dinner: 100 Nutrition Comment: pt. sleeping Subjective Subjective Patient was seen & assessed and interval progress reviewed with nurses. Nurses indicated that pt appeared to check his Meds last night and this morning. He endorsed taking them though. HE indicated to policy writer that he still wants to take clozapine and Haldol. He endorsed to policy writer some depression but denied other concerns including anxiety, irritability, AH ro VH, or SI or HI or fatigue. However when policy writer inquired about any s/e he might have from medications he verbalized, agitation, agitation, tiredness, irritability. Data Entry Assistant inquired again if he was having those concerns today and he indicated not having them. Pt was seen in his bedroom while he was laying down in is bed. Staff reported that mother hared how pt contacted her and was inquiring about a former GF and a reportedly factitious other woman. Mother weary that he might be giving some cues of more symptoms likely to flare up and prepared staff for possibility of upcoming sexualized thought content and or behaviors. Pt inquired about discharge indicating mother coming today, when reminded him about actual plans he indicated "OK" Physical Exam Psychiatric Orientation: alert, oriented x 3, oriented to person, oriented to place, iker ative and + guarded (only superficially cooperative) Apperance: appropriately dressed, appropriately groomed and + disheveled Eye Contact: + fair eye contact Motor Behavior: no abnormal motor movements Speech: normal rate/rhythm/volume of speech; no pressured speech Affect: + constricted affect and mood congruent with affect Mood: + depressed mood Thought Process: goal directed thought process, + circumstantial thought process (becomes a little animated discussing a historical medical workup), + tangential thought process, + perseveration and + concrete thought process; + thought process not clear or coherent Thought Content: + preoccupation (with generalized pain), + paranoid and reality based without delusions; no delusions (no obvious delusional thinking unearthed during this particular interaction) Suicidal Thoughts: denies suicidal thoughts Homicidal Thoughts: denies homicidal thoughts Hallucinations: no auditory 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 and no visual 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 Cognition: recent memory grossly intact, attention grossly intact and language grossly intact; + remote memory not intact Estimated Intelligence: consistent with education level and + below average estimated intelligence Insight: + severely impaired insight Judgement: + severely impaired judgement Vital Signs (Past 24 Hours) Last Vital Signs Temp 36.5 C 12/31/18 06:46 Pulse 78 12/31/18 06:48 Resp 18 12/31/18 06:46 BP 100/68 12/31/18 06:48 Pulse Ox 97 12/14/18 03:38 Results & Data Current Inpatient Medications Current Inpatient Medications: Current Inpatient Medications Acetaminophen (Tylenol) 650 mg PO Q4H PRN PRN Reason: Headache or Minor Fever Stop: 01/13/19 02:51 Last Admin: 12/31/18 11:05 Dose: 650 mg Documented by: Al Hydrox/Mg Hydrox/Simethicone (Maalox) 30 ml PO Q4H PRN PRN Reason: GI Upset Stop: 01/13/19 02:51 Benztropine Mesylate (Cogentin) 1 mg PO BID PRN PRN Reason: akathisia Stop: 01/26/19 20:59 Last Admin: 12/27/18 20:05 Dose: 1 mg Documented by: Bismuth Subsalicylate (Kaopectate) 15 ml PO PRN PRN PRN Reason: Loose Stool Stop: 01/13/19 02:51 Clozapine (Clozaril) 25 mg PO BID KELLY Stop: 01/29/19 20:59 Last Admin: 12/31/18 08:35 Dose: Not Given Documented by: Docusate Sodium (Colace) 100 mg PO HS [facility] Stop: 01/23/19 21:59 Last Admin: 12/30/18 21:21 Dose: Not Given Documented by: Haloperidol (Haldol) 10 mg PO Q4 PRN PRN Reason: psychosis or agitation Stop: 01/13/19 03:55 Last Admin: 12/26/18 13:25 Dose: 10 mg Documented by: Haloperidol (Haldol) 10 mg PO 0900,1600 KELLY Stop: 01/20/19 09:59 Last Admin: 12/31/18 08:35 Dose: Not Given Documented by: Haloperidol Lactate (Haldol) 10 mg IM Q4 PRN PRN Reason: psychosis or agitation Stop: 01/13/19 03:55 Last Admin: 12/28/18 16:54 Dose: 10 mg Documented by: Haloperidol Lactate (Haldol) 10 mg IM 0900,1600 PRN PRN Reason: refusal of PO Stop: 01/20/19 09:56 Hydroxyzine HCl (Vistaril) 25 mg PO Q4H PRN PRN Reason: Anxiety Stop: 01/13/19 02:51 Last Admin: 12/30/18 13:20 Dose: 25 mg Documented by: Hydroxyzine HCl (Vistaril) 50 mg PO HSZ PRN PRN Reason: Insomnia Stop: 01/13/19 02:51 Last Admin: 12/30/18 21:48 Dose: 50 mg Documented by: Lorazepam (Ativan) 1 mg PO Q4 PRN PRN Reason: Agitation Stop: 01/13/19 03:52 Last Admin: 12/30/18 14:04 Dose: 1 mg Documented by: Lorazepam (Ativan) 1 mg IM Q4 PRN PRN Reason: Agitation Stop: 01/13/19 03:54 Magnesium Hydroxide (Milk Of Magnesia) 30 ml PO DAILY PRN PRN Reason: Heartburn Stop: 01/13/19 02:51 Menthol (Nice) 1 be BUCCAL Q2H PRN PRN Reason: Sore Throat Stop: 01/19/19 20:40 Last Admin: 12/20/18 20:52 Dose: 1 be Documented by: Miscellaneous (Remove Nicoderm Patch) 1 ea N/A DAILY@2100 [facility] Stop: 01/13/19 20:59 Last Admin: 12/30/18 21:20 Dose: Not Given Documented by: Nicotine (Nicoderm Cq) 21 mg TD QAM [facility] Stop: 01/13/19 08:59 Last Admin: 12/31/18 08:35 Dose: 21 mg Documented by: Nicotine Polacrilex (Nicorette 2mg) 1 piece MT UD PRN PRN Reason: Nicotine Withdrawal Stop: 01/13/19 08:20 Last Admin: 12/30/18 20:40 Dose: 1 piece Documented by: Sodium Chloride (Taos Nasal) 1 - 2 sprays NA PRN PRN PRN Reason: Nasal Dryness/Congestion Stop: 01/13/19 02:51 Post Discharge Appointments Primary Care Physician Name Of Family Doctor: Denies Therapist Name of Therapist: Denies Railway Engineer Name of Railway Engineer: [employer] Phone Number for Railway Engineer: [phone] Case Management Appointment Comment: [address], [address], [place], [place] CPT Code CPT Code 87524
[2018-12-31] MEDS: LORazepam 1 MG TAB PO PRN ×2 (12:24→18:55)
[2018-12-31] MEDS: HALOPERIDOL 5 MG TAB PO PRN (12:24)
[2018-12-31] MEDS: NICOTINE POLACRILEX 2 MG GUM MT PRN (13:50)
[2018-12-31] MEDS: DOCUSATE SODIUM 100 MG CAP PO SCH (21:18)
[2019-01-01] MEDS: NICOTINE 21 MG/24 HR TDSY TD SCH (08:51)
[2019-01-01] MEDS: cloZAPine 25 MG TAB PO SCH ×2 (08:51→21:10)
[2019-01-01] MEDS: HALOPERIDOL 5 MG TAB PO SCH (08:52)
[2019-01-01] MEDS: LORazepam 1 MG TAB PO PRN ×2 (08:54→17:22)
--- NOTE | 2019-01-01 10:09 | Psychiatric Progress Note ---
Date of Service January 01, 2019 Impression / Recommendations Impression The patient admits to cheeking Clozaril and now refusing to take it due to perceived side effects. He is more irritable and saying he will refuse meds and programming if he goes to the [facility]. There is also concern that he is getting more sexually focused, which his mother says has happened in the past. For now we will continue with the Clozaril although will not force meds over objection for this. Will increase Haldol to 10 mg AM and 15 mg HS to target distorted thoughts. It is clear that these are some of the factors that have led to prior state hospitalizations (refusing meds, irritability, refusing recommended treatments), and reasons why the [facility] should be our primary recommendations as he is not likely to comply with the rules and recommendations at the [facility] where there is no way to enforce such things. [facility], but no bed date available at this time. (1) Thought disorder: 12/14 -patient is a poor historian, but mother provides historical information. 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 For now we will collect psychosis not otherwise specified. -Patient is refusing to sign releases for previous outpatient providers in [place], and staff contacted them but they refused to provide any information without a signed release. -Medically necessary private room due to psychosis, erratic and disorganized behavior, history of violence, and aggressive behavior and threats to harm others here in the hospital. -Start haloperidol 5 mg twice daily, as patient has a previous good response to Haldol Decanoate and clozapine. Recommend medications over objection once he is on a 303 involuntary commitment and has been seen by a second physician, as he has severe psychotic symptoms which are preventing him from accurately interpreting reality, influencing his behavior, and placing him at risk of harm to both himself and others as he has been acting on his delusions, experiencing auditory and visual 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, paranoia, engaging in unsafe behaviors including driving when he does not have a license or the knowledge to do so, abusing substances, and has been threatening towards others. He demonstrates no insight into his condition, but available information indicates response to treatment with antipsychotic medications in the past. -Medically necessary private room due to psychosis, aggressive behavior, and threats to harm others. -We will need to check fasting lipid profile and glucose once he is cooperative. -Excused from groups from the time being until able to participate appropriately. -Refusing to sign releases for parents, but mother is petitioner, so can inform her of the 303 hearing. 12/15 -The patient did except a single dose of lorazepam this morning, and did seem to be somewhat more calm. He was mildly labile during his involuntary commitment hearing this morning, but managed to maintain control and was not aggressive during the hearing or upon learning that he had been retained by the hearing specialist. Accordingly, we will continue to offer him lorazepam, since this med ication in his case does not seem to be disinhibiting and, at least today, appeared to have helped him manage angry impulses during his involuntary commitment hearing. -The treatment team and I agree that, if possible, we would like to convince the patient to voluntarily take oral medications. Reports are that this morning he came close to taking oral haloperidol, but at the last minute declined. He is telling us that he will consistently refused medications, but our hope is that as we are able to gain his trust he will become more cooperative. We will continue to try to convince the patient to take oral haloperidol, but if this is unsuccessful we will seek two physician approval of medication over objection and give Haldol 5 mg IM BID. 12/16--tolerating Haldol, titrate to 10 mg BID. 12/18 - Continue haldol 10 mg bid - Continue discussion about LAMA - Encourage better sleep hygiene, staying awake in the day to promote sleep at night. 12/19 - Patient allowed labs to be drawn. FBS 93, FLP WNL with the exception of triglycerides of 186. Counseled to avoid fatty red meats, saturated fats. 12/20 -Again discussed the recommendations for long-acting injectable antipsychotic medication with the patient, which he initially declined because he said medications are poison. He has a meeting with his family this afternoon, and I will order the first loading dose of Haldol Decanoate 50 mg IM to be administered this afternoon, and if he is unwilling to take it, we will likely need to proceed with medications over objection tomorrow. We will try to encourage him to accept the intervention, as he reportedly did fairly well on this medication in the past. 12/21 -proceed with medications over objection: Haldol Decanoate 100 mg IM today, and Haldol 10 mg IM for refusal of oral Haldol. He will need 100-200 mg of Haldol Decanoate every 4 weeks based on his current oral dose, so will continue oral haloperidol for now until we can monitor response to the decanoate. 12/22 -the patient received Haldol Decanoate intramuscularly today, as a medication over objection. He tolerated the injection well, and today tells me that he "feels pretty good." -Today, the patient's associations seemed to be fairly tight on examination. He tends to be somewhat concrete in his thinking, but, as above, he did seem able to understand our rationale for continuing inpatient treatment at this point. 12/23 - tolerating halol dec w/o EPS or other complaints. will need to consider reduction of oral dose in approx 1 week. 12/24 - pt remains less acutely behaviorally disturbed since Haldol dec injection last however evidenced mild acting out when physically uncomfortable today - will add standing docusate 100mg po qhs and encourage oral hydration today for complaint of hard stool - meeting w/ [facility] tomorrow to explore dispo options 12/25 - Increase in irritability - Planning meeting held with [facility]: possibility for CRR vs state hospital - Continue current meds and encourage prns 12/26 - 304 granted. Meeting with [facility], patient and parents held yesterday: parents confirmed he cannot return home. Treatment team and [facility] recommends state hospitalization, as patient not appropriate for CRR placement due to severity of symptoms and unwillingness for outpatient treatment and medications. 12/27 - Continue current medication regimen - Orders placed for necessary EKG, TB skin test to accompany [facility] referral - Place on high elopement precautions last evening due to suspicious loitering at the entryway of the unit - Reviewed records from [facility] - previous diagnoses were schizoaffective disorder and substance abuse 12/28 - Continue current medication regimen - EKG and PPD completed yesterday - PPD will need read on 12/30 12/29 -Add clozapine 12.5 mg BID and increase as tolerated by 25 mg per day to a dose of 300 mg daily (in two divided dosages, or all at bedtime).' 12/30 -titrating clozapine to 12.5 am and 25mg hs for 4/20 with plan to increase to 25mg bid on 12/31 and likely further titration if tolerating -maintained Haldol decanoate and Haldol po unchanged for now, with consideration of weaning Haldol po dose if clozapine is effective ,, although pt appears to have history of both Haldol forms being rx'd while on past clozapine med trial. Pt has been observed by staff to be improving as obtaining medication of haldol (including the immediate IM doses) 12/31 close monitoring for checking, continue plan above for IM Haldol over objection if checking haldol scheduled doses. Maintain clozapine dosing plan for now with potential re-considering clozapine plan if compklaince issues are occuring. Consider further titration of haldol decanoate as appropaite. 01/01 - Patient refusing Clozaril. Will leave in place, but not force meds over objection for refusal - Increase Haldol to 10 mg AM and 15 mg HS, with meds over objection for refusal - Continue MNPR due to irritability and hx of violence (2) Noncompliance with medications: 12/14 -stopped his medications 6 months ago and has decompensated since. Would benefit from a long-acting injectable, and either long-term inpatient treatment [facility] or involuntary outpatient treatment.. 12/15 -The patient's psychosis and severely impaired insight seem to be making him and accessible to reason, regarding the essential importance of psychiatric medications. There is a past history of favorable response to haloperidol as well as to clozapine. It is agreed that the patient would in all likelihood benefit from a long-acting injectable antipsychotic medication, given his history of recurrent medication nonadherence. 12/16--currently taking PO for a few doses, is on extended involuntary commitment and clearly ongoing schizophrenia which will fail to improve for him to be able to provide self-care without ongoing treatments on inpatient unit and medications over objection. Without antipsychotic medication he is at significant risk of /serious disability and a danger to himself/others. Dr. Srinivasan could provide second opinion if he refuses PO med. 12/18- Patient refusing to consider LAMA at this time. Will continue to encourage 12/21 -patient continues to refuse Haldol Decanoate, and is now also refusing oral Haldol. We will proceed with medications over objection, as he has a diagnosis of primary thought disorder, has benefited from Haldol Decanoate in the past, he is actively delusional and is refusing medications due to psychotic thought processes, and is at risk of harm to both himself and others if he remains untreated. He has a significant history of violence tied to his delusions, and it will be important to get his symptoms adequately managed to de crease the risk of violence towards others here in the hospital. 12/22 -medication adherence is most certainly going issue with this patient. We are recommending the continued use of Depo forms of antipsychotic medications, but, in the past, the patient has simply refused to return to the office of the healthcare professional who is administering the sectionas was the case last year when, after doing reasonably well, he stopped going for treatment, and stopped excepting medications. For this reason, we are carefully looking for a supportive living setting for this patient, preferably one that has the resources necessary to assist the resistant, not adherent to patient. 12/24 - remains better compliant with PO meds 12/25 - Takes meds when he thinks he needs them, but voiced some question about taking anything regularly after discharge. 12/29 -the patient refused a dose of haloperidol yesterday and received haloperidol 10 mg intramuscularly over objection from disease no holes were r equired and the patient was cooperative with the injection closed with disease. Afterwards, he wondered out loud why he had refused the medication, knowing that he would get it "one way or the other." Because the patient seemed to have responded well, in terms of his disorganized thinking, to the intramuscular dose of haloperidol, there has been some discussion in the team regarding the question of "cheeking" his oral medications. However, the explanation may be that haloperidol 10 mg IM is more potent than orally. In any event, today the patient commits to continued adherence with his medications as he acknowledges that he does feel that they have been helpful to him. 12/31 -potential signs of non compliance 12/30 and 12/31, consider further titration of haldol deaconate as appropriate to help ensure as full of dose being obtained as possible. maintained plan of haldol IM injections for non compliance of haldol po doses (3) Substance abuse: 12/14 -patient is not forthcoming, but mother reports he has been abusing alcohol, cough syrup, diphenhydramine, and likely other substances. We will monitor for withdrawal symptoms, and as his psychosis improves, will provide psychoeducation about the risks of substance abuse and recommendations for abstinence. -Avoid controlled substances given high risk of abuse/misuse/negative outcomes. 12/15 -It is recognized that the patient has an extensive history of abusing chemical substances, and it is generally agreed that use of controlled substances does pose significant risk of abuse and other negative outcomes in the long-term. However, the patient's irritability and unwillingness to cooperate with essential medications, such as haloperidol, as well as his history of physical aggression towards others, may be mitigated by the temporary use of a benzodiazepine. Today, a single dose of lorazepam seems to have been effective in helping the patient maintain composure during an involuntary commitment hearing that did not go in his favor, and staff have noticed that he has been somewhat more cooperative today, possibly in response to the dose of lorazepam. Accordingly, staff will continue to offer the patient as needed lorazepam. 12/21 -admission drug screen was positive for benzodiazepines, with significantly elevated temazepam (> 2000) and elevated oxazepam levels. Although he denied taking benzodiazepines prior to admission, he clearly was accessing them somehow. 12/22 -the patient is able to give what may be referred to as "lip service" to the concept of abstinence from drugs of abuse, but he seems to have little or no insight into the risks associated with his abuse of mood altering chemical substances, particularly within the context of his psychiatric illness. Again, a whole will be to identify an aftercare placement that we will be able to monitor him more assiduously for access to abusable chemical substances, including prescription medications, alcohol, and other drugs of abuse. (4) Antisocial personality disorder: 12/14 -extensive, lifelong history provided by adoptive mother which reveals a pervasive pattern of disregard for and violation of the rights of others which started at age 8 or earlier, failure to conform to social norms with respect to lawful behaviors as indicated by repeatedly performing acts that are grounds for arrest, deceitfulness, impulsivity and failure to plan ahead, irritability and aggressiveness, reckless disregard for safety of self and others, consistent irresponsibility, and lack of remorse. 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 -Reviewed expectations with respect to behavior on the unit. 12/15 -The patient's history of antisocial behavior is noted, and antisocial personality will not be a focus of treatment during this hospitalization. However, the record indicates that the patient's antisocial behaviors, which are lifelong, are mitigated to some extent when he is being successfully treated for his psychotic disorder. Accordingly, the approach will be to address his antisocial behaviors by focusing on addressing his psychosis. 12/22 -The patient's long-standing history of antisocial behaviorbehavior which reportedly predates the onset of his symptoms of schizophreniahave not been a focus of treatment and are unlikely to change. Careful monitoring, diversion, containment to the degree possible, to containment of the most appropriate interventions for this problem. Inventory Assets Strengths: Good physical health. Able to form alliances with certain peers. Concerned and supportive parents. Needs: Continued adherence with psychiatric medications. Sustained recovery fr om psychotic features. Risk Factors Assessment Male: Yes : Yes Do You Have Access To A Gun?: No Health Problems: Yes Mental Health Diagnoses: Yes Substance Use Disorders: Yes Previous Attempt: No Previous Psychiatric Hospitalization: Yes Hopelessness: No Smoker: Yes Protective Factors Assessment Rastafari Beliefs: No : No Responsible for Young Children: No Employed: No Stable Relationships: No Supportive Family: Yes Good Rapport with Provider: No Absence of Any Risk Factors Above: No Interval History Identifying Information APRIL GONZALEZ is a 43-year-old M who lives in [place] with his parents, has a history of a psychotic disorder (specific diagnosis not yet known, but history of multiple previous hospitalizations including a 1 year state hospitalization in [place]), and was admitted on 12/14/18 03:41 on a 302 involuntary commitment for psychosis, treatment noncompliance, and erratic, unsafe behavior. He is on a 304 involuntary commitment as of 12/26/2018. Chief Complaint "I'm going to refuse the Clozaril. ". Review of Systems Sleep Information Total Hours of Sleep: 7.25 Sleep Comments: awake at 0205 to the bathroom then out to the kitchen for a drink. he remains to have obstructed breathing with no auduble movement of air many times throughout the night. Meal Information Percent Meal Consumed - Breakfast: 100 Percent Meal Consumed - Lunch: 95 Percent Meal Consumed - Dinner: 100 Nutrition Comment: pt. sleeping Subjective Subjective Patient was seen & assessed and interval progress reviewed with Treatment Team. The patient was in bed, needing to be awoken for the interview. He immediately says that he will refuse to take any more clozaril and admits that he has been spitting it out. He reports that he feels "more irritable, restless and nervous" when taking it. he says that he took it for 8 years, had similar side effects and put on a lot of weight. He denies that any medication has helped his mental illness including haldol. Nursing reports that he has seems more sexually preoccupied of late, asking his mother for phone numbers for ex GF's, hoarding advertisements from the paper portraying women. We discuss current treatment recommendations, specifically that [facility] and that CRR is still on the table. He becomes focused on length of stay and returns to me several times to ask/demand specifically what his length of stay would be if [facility] and wanting it in wr iting. When told that, in part, it would depend on his cooperation with treatment, he says that he will not be taking meds or attending programming. He denies SI/HI, denies aud/vis 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. His conversation deteriorates as he gets upset about [facility], talking in short, abrupt sentences that don't always make sense. Physical Exam Psychiatric Orientation: + guarded Apperance: + disheveled Eye Contact: + fair eye contact Motor Behavior: steady gait and station and no abnormal motor movements abrupt, disjointed Affect: + irritable affect Mood: + irritable mood Thought Process: + perseveration (on [facility] length of stay) Thought Content: + cognitive distortions refusing to take Clozaril Suicidal Thoughts: denies suicidal thoughts Homicidal Thoughts: denies homicidal thoughts Hallucinations: no auditory 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 and no visual 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 Cognition: recent memory grossly intact and language grossly intact Estimated Intelligence: consistent with education level Insight: + impaired insight Vital Signs (Past 24 Hours) Last Vital Signs Temp 36.6 C 01/01/19 06:20 Pulse 103 H 01/01/19 06:25 Resp 18 01/01/19 06:20 BP 107/73 01/01/19 06:25 Pulse Ox 97 12/14/18 03:38 Results & Data Current Inpatient Medications Current Inpatient Medications: Current Inpatient Medications Acetaminophen (Tylenol) 650 mg PO Q4H PRN PRN Reason: Headache or Minor Fever Stop: 01/13/19 02:51 Last Admin: 12/31/18 18:54 Dose: 650 mg Documented by: Al Hydrox/Mg Hydrox/Simethicone (Maalox) 30 ml PO Q4H PRN PRN Reason: GI Upset Stop: 01/13/19 02:51 Benztropine Mesylate (Cogentin) 1 mg PO BID PRN PRN Reason: akathisia Stop: 01/26/19 20:59 Last Admin: 12/27/18 20:05 Dose: 1 mg Documented by: Bismuth Subsalicylate (Kaopectate) 15 ml PO PRN PRN PRN Reason: Loose Stool Stop: 01/13/19 02:51 Clozapine (Clozaril) 25 mg PO BID KELLY Stop: 01/29/19 20:59 Last Admin: 01/01/19 08:51 Dose: 25 mg Documented by: Docusate Sodium (Colace) 100 mg PO HS KELLY Stop: 01/23/19 21:59 Last Admin: 12/31/18 21:18 Dose: Not Given Documented by: Haloperidol (Haldol) 10 mg PO Q4 PRN PRN Reason: psychosis or agitation Stop: 01/13/19 03:55 Last Admin: 12/31/18 12:24 Dose: 10 mg Documented by: Haloperidol (Haldol) 10 mg PO 0900,1600 KELLY Stop: 01/20/19 09:59 Last Admin: 01/01/19 08:52 Dose: 10 mg Documented by: Haloperidol Lactate (Haldol) 10 mg IM Q4 PRN PRN Reason: psychosis or agitation Stop: 01/13/19 03:55 Last Admin: 12/28/18 16:54 Dose: 10 mg Documented by: Haloperidol Lactate (Haldol) 10 mg IM 0900,1600 PRN PRN Reason: refusal of PO Stop: 01/20/19 09:56 Hydroxyzine HCl (Vistaril) 25 mg PO Q4H PRN PRN Reason: Anxiety Stop: 01/13/19 02:51 Last Admin: 12/30/18 13:20 Dose: 25 mg Documented by: Hydroxyzine HCl (Vistaril) 50 mg PO HSZ PRN PRN Reason: Insomnia Stop: 01/13/19 02:51 Last Admin: 12/30/18 21:48 Dose: 50 mg Documented by: Lorazepam (Ativan) 1 mg PO Q4 PRN PRN Reason: Agitation Stop: 01/13/19 03:52 Last Admin: 01/01/19 08:54 Dose: 1 mg Documented by: Lorazepam (Ativan) 1 mg IM Q4 PRN PRN Reason: Agitation Stop: 01/13/19 03:54 Magnesium Hydroxide (Milk Of Magnesia) 30 ml PO DAILY PRN PRN Reason: Heartburn Stop: 01/13/19 02:51 Menthol (Nice) 1 be BUCCAL Q2H PRN PRN Reason: Sore Throat Stop: 01/19/19 20:40 Last Admin: 12/20/18 20:52 Dose: 1 be Documented by: Miscellaneous (Remove Nicoderm Patch) 1 ea N/A DAILY@2100 KELLY Stop: 01/13/19 20:59 Last Admin: 12/31/18 21:15 Dose: 1 ea Documented by: Nicotine (Nicoderm Cq) 21 mg TD QAM [facility] Stop: 01/13/19 08:59 Last Admin: 01/01/19 08:51 Dose: 21 mg Documented by: Nicotine Polacrilex (Nicorette 2mg) 1 piece MT UD PRN PRN Reason: Nicotine Withdrawal Stop: 01/13/19 08:20 Last Admin: 12/31/18 13:50 Dose: 1 piece Documented by: Sodium Chloride ([place]ield Nasal) 1 - 2 sprays NA PRN PRN PRN Reason: Nasal Dryness/Congestion Stop: 01/13/19 02:51 Post Discharge Appointments Primary Care Physician Name Of Family Doctor: Denies Therapist Name of Therapist: Denies Co Founder And President Name of Co Founder And President: [employer] Phone Number for Co Founder And President: [phone] Case Management Appointment Comment: [address], [address], [place], [place] CPT Code CPT Code 52079
[2019-01-01] MEDS ORDERED: HALOPERIDOL 5 MG TAB PO SCH (16:00)
[2019-01-01] MEDS: ACETAMINOPHEN 325 MG TAB PO PRN (17:41)
[2019-01-01] MEDS: NICOTINE POLACRILEX 2 MG GUM MT PRN (18:48)
[2019-01-01] MEDS: DOCUSATE SODIUM 100 MG CAP PO SCH (21:10)
[2019-01-02] MEDS: LORazepam 1 MG TAB PO PRN ×2 (08:19→15:10)
[2019-01-02] MEDS: HALOPERIDOL 10 MG TABLET PO SCH (08:20)
[2019-01-02] MEDS: cloZAPine 25 MG TAB PO SCH ×2 (08:21→21:03)
[2019-01-02] MEDS: NICOTINE 21 MG/24 HR TDSY TD SCH (08:26)
--- NOTE | 2019-01-02 08:45 | Psychiatric Progress Note ---
Date of Service January 02, 2019 Impression / Recommendations Impression The patient admitted to [facility] Clozaril and is now refusing to take it due to perceived side effects. He is irritable at times, saying he will refuse meds and programming if he goes to the [facility], and is refusing to go to groups here. He has been sexually focused, which his mother says has happened in the past. For now we will continue with the Clozaril although will not force meds over objection for this, as there is no injectable form of this medication. Haldol has been increased to 10 mg AM and 15 mg HS to target distorted thoughts. He has been referred to the [facility], and given the severity and chronicity of his psychotic symptoms, but we will also work on a plan for discharge to the community in the case that he is not accepted to the [facility] in a timely manner. He is now saying he is willing to pursue CRR placement, so we will schedule a meeting with his outpatient immigration case worker to discuss further and clarify goals and requirements for acceptance to the [place] [facility]. (1) Thought disorder: 12/14 -patient is a poor historian, but mother provides historical information. 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 For now we will collect psychosis not otherwise specified. -Patient is refusing to sign releases for previous outpatient providers in [place], and staff contacted them but they refused to provide any information without a signed release. -Medically necessary private room due to psychosis, erratic and disorganized behavior, history of violence, and aggressive behavior and threats to harm others here in the hospital. -Start haloperidol 5 mg twice daily, as patient has a previous good response to Haldol Decanoate and clozapine. Recommend medications over objection once he is on a 303 involuntary commitment and has been seen by a second physician, as he has severe psychotic symptoms which are preventing him from accurately in terpreting reality, influencing his behavior, and placing him at risk of harm to both himself and others as he has been acting on his delusions, experiencing auditory and visual 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, paranoia, engaging in unsafe behaviors including driving when he does not have a license or the knowledge to do so, abusing substances, and has been threatening towards others. He demonstrates no insight into his condition, but available information indicates response to treatment with antipsychotic medications in the past. -Medically necessary private room due to psychosis, aggressive behavior, and th reats to harm others. -We will need to check fasting lipid profile and glucose once he is cooperative. -Excused from groups from the time being until able to participate appropriately. -Refusing to sign releases for parents, but mother is petitioner, so can inform her of the 303 hearing. 12/15 -The patient did except a single dose of lorazepam this morning, and did seem to be somewhat more calm. He was mildly labile during his involuntary commitment hearing this morning, but managed to maintain control and was not aggressive during the hearing or upon learning that he had been retained by the hearing aid repairer. Accordingly, we will continue to offer him lorazepam, since this medication in his case does not seem to be disinhibiting and, at least today, appeared to have helped him manage angry impulses during his involuntary commitment hearing. -The treatment team and I agree that, if possible, we would like to convince the patient to voluntarily take oral medications. Reports are that this morning he came close to taking oral haloperidol, but at the last minute declined. He is telling us that he will consistently refused medications, but our hope is that as we are able to gain his trust he will become more cooperative. We will continue to try to convince the patient to take oral haloperidol, but if this is unsuccessful we will seek two physician approval of medication over objection and give Haldol 5 mg IM BID. 12/16--tolerating Haldol, titrate to 10 mg BID. 12/18 - Continue haldol 10 mg bid - Continue discussion about LAMA - Encourage better sleep hygiene, staying awake in the day to promote sleep at night. 12/19 - Patient allowed labs to be drawn. FBS 93, FLP WNL with the exception of triglycerides of 186. Counseled to avoid fatty red meats, saturated fats. 12/20 -Again discussed the recommendations for long-acting injectable antipsychotic medication with the patient, which he initially declined because he said medications are poison. He has a meeting with his family this afternoon, and I will order the first loading dose of Haldol Decanoate 50 mg IM to be administered this afternoon, and if he is unwilling to take it, we will likely need to proceed with medications over objection tomorrow. We will try to encourage him to accept the intervention, as he reportedly did fairly well on this medication in the past. 12/21 -proceed with medications over objection: Haldol Decanoate 100 mg IM today, and Haldol 10 mg IM for refusal of oral Haldol. He will need 100-200 mg of Haldol Decanoate every 4 weeks based on his current oral dose, so will continue oral haloperidol for now until we can monitor response to the decanoate. 12/22 -the patient received Haldol Decanoate intramuscularly today, as a medication over objection. He tolerated the injection well, and today tells me that he "feels pretty good." -Today, the patient's associations seemed to be fairly tight on examination. He tends to be somewhat concrete in his thinking, but, as above, he did seem able to understand our rationale for continuing inpatient treatment at this point. 12/23 - tolerating halol dec w/o EPS or other complaints. will need to consider reduction of oral dose in approx 1 week. 12/24 - pt remains less acutely behaviorally disturbed since Haldol dec injection last however evidenced mild acting out when physically uncomfortable today - will add standing docusate 100mg po qhs and encourage oral hydration today for complaint of hard stool - meeting w/ [facility] tomorrow to explore dispo options 12/25 - Increase in irritability - Planning meeting held with [facility]: possibility for CRR vs state hospital - Continue current meds and encourage prns 12/26 - 304 granted. Meeting with [facility], patient and parents held yesterday: parents confirmed he cannot return home. Treatment team and [facility] recommends state hospitalization, as patient not appropriate for CRR placement due to severity of symptoms and unwillingness for outpatient treatment and medications. 12/27 - Continue current medication regimen - Orders placed for necessary EKG, TB skin test to accompany [place] referral - Place on high elopement precautions last evening due to suspicious loitering at the entryway of the unit - Reviewed records from [facility] - previous diagnoses were schizoaffective disorder and substance abuse 12/28 - Continue current medication regimen - EKG and PPD completed yesterday - PPD will need read on 12/30 12/29 -Add clozapine 12.5 mg BID and increase as tolerated by 25 mg per day to a dose of 300 mg daily (in two divided dosages, or all at bedtime).' 12/30 -titrating clozapine to 12.5 am and 25mg hs for 12/30 with plan to increase to 25mg bid on 12/31 and likely further titration if tolerating -maintained Haldol decanoate and Haldol po unchanged for now, with consideration of weaning Haldol po dose if clozapine is effective ,, although pt appears to have history of both Haldol forms being rx'd while on past clozapine med trial. Pt has been observed by staff to be improving as obtaining medication of haldol (including the immediate IM doses) 12/31 close monitoring for checking, continue plan above for IM Haldol over objection if checking haldol scheduled doses. Maintain clozapine dosing plan for now with potential re-considering clozapine plan if compklaince issues are occuring. Consider further titration of haldol decanoate as appropaite. 01/01 - Patient refusing Clozaril. Will leave in place, but not force meds over objection for refusal - Increase Haldol to 10 mg AM and 15 mg HS, with meds over objection for refusal - Continue MNPR due to irritability and hx of violence 01/02 -continue oral haloperidol 10 mg every morning and 15 mg at bedtime (moved to later time to try to minimize sedation/spending excessive time in bed during the day), and Haldol decanoate, next injection due 01/19/2019. Continue Lorazepam as needed. -He continues to refuse clozapine. (2) Noncompliance with medications: 12/14 -stopped his medications 6 months ago and has decompensated since. Would benefit from a long-acting injectable, and either long-term inpatient treatment at the [facility] or involuntary outpatient treatment.. 12/15 -The patient's psychosis and severely impaired insight seem to be making him and accessible to reason, regarding the essential importance of psychiatric medications. There is a past history of favorable response to haloperidol as well as to clozapine. It is agreed that the patient would in all likelihood benefit from a long-acting injectable antipsychotic medication, given his history of recurrent medication nonadherence. 12/16--currently taking PO for a few doses, is on extended involuntary commitment and clearly ongoing schizophrenia which will fail to improve for him to be able to provide self-care without ongoing treatments on inpatient unit and medications over objection. Without antipsychotic medication he is at significant risk of /serious disability and a danger to himself/others. Dr. Srinivasan could provide second opinion if he refuses PO med. 12/18- Patient refusing to consider LAMA at this time. Will continue to encourage 12/21 -patient continues to refuse Haldol Decanoate, and is now also refusing oral Haldol. We will proceed with medications over objection, as he has a diagnosis of primary thought disorder, has benefited from Haldol Decanoate in the past, he is actively delusional and is refusing medications due to psychotic thought processes, and is at risk of harm to both himself and others if he remains untreated. He has a significant history of violence tied to his delusions, and it will be important to get his symptoms adequately managed to decrease the risk of violence towards others here in the hospital. 12/22 -medication adherence is most certainly going issue with this patient. We are recommending the continued use of Depo forms of antipsychotic medications, but, in the past, the patient has simply refused to return to the office of the healthcare professional who is administering the sectionas was the case last year when, after doing reasonably well, he stopped going for treatment, and stopped excepting medications. For this reason, we are carefully looking for a supportive living setting for this patient, preferably one that has the resources necessary to assist the resistant, not adherent to patient. 12/24 - remains better compliant with PO meds 12/25 - Takes meds when he thinks he needs them, but voiced some question about taking anything regularly after discharge. 12/29 -the patient refused a dose of haloperidol yesterday and received haloperidol 10 mg intramuscularly over objection from disease no holes were required and the patient was cooperative with the injection closed with disease. Afterwards, he wondered out loud why he had refused the medication, knowing that he would get it "one way or the other." Because the patient seemed to have responded well, in terms of his disorganized thinking, to the intramuscular dose of haloperidol, there has been some discussion in the team regarding the question of "cheeking" his oral medications. However, the explanation may be that haloperidol 10 mg IM is more potent than orally. In any event, today the patient commits to continued adherence with his medications as he acknowledges that he does feel that they have been helpful to him. 12/31 -potential signs of non compliance 12/30 and 12/31, consider further titration of haldol deaconate as appropriate to help ensure as full of dose being obtained as possible. maintained plan of haldol IM injections for non compliance of haldol po doses (3) Substance abuse: 12/14 -patient is not forthcoming, but mother reports he has been abusing alcohol, cough syrup, diphenhydramine, and likely other substances. We will monitor for withdrawal symptoms, and as his psychosis improves, will provide psychoeducation about the risks of substance abuse and recommendations for abstinence. -Avoid controlled substances given high risk of abuse/misuse/negative outcomes. 12/15 -It is recognized that the patient has an extensive history of abusing chemical substances, and it is generally agreed that use of controlled substances does pose significant risk of abuse and other negative outcomes in the long-term. However, the patient's irritability and unwillingness to cooperate with essential medications, such as haloperidol, as well as his history of physical aggression towards others, may be mitigated by the temporary use of a benzodiazepine. Today, a single dose of lorazepam seems to have been effective in helping the patient maintain composure during an involuntary commitment hearing that did not go in his favor, and staff have noticed that he has been somewhat more cooperative today, possibly in response to the dose of lorazepam. Accordingly, staff will continue to offer the patient as needed lorazepam. 12/21 -admission drug screen was positive for benzodiazepines, with significantly elevated temazepam (> 2000) and elevated oxazepam levels. Although he denied taking benzodiazepines prior to admission, he clearly was accessing them somehow. 12/22 -the patient is able to give what may be referred to as "lip service" to the concept of abstinence from drugs of abuse, but he seems to have little or no insight into the risks associated with his abuse of mood altering chemical substances, particularly within the context of his psychiatric illness. Again, a whole will be to identify an aftercare placement that we will be able to monitor him more assiduously for access to abusable chemical substances, including prescription medications, alcohol, and other drugs of abuse. (4) Antisocial personality disorder: 12/14 -extensive, lifelong history provided by adoptive mother which reveals a pervasive pattern of disregard for and violation of the rights of others which started at age 8 or earlier, failure to conform to social norms with respect to lawful behaviors as indicated by repeatedly performing acts that are grounds for arrest, deceitfulness, impulsivity and failure to plan ahead, irritability and aggressiveness, reckless disregard for safety of self and others, consistent irresponsibility, and lack of remorse. 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 -Reviewed expectations with respect to behavior on the unit. 12/15 -The patient's history of antisocial behavior is noted, and antisocial personality will not be a focus of treatment during this hospitalization. However, the record indicates that the patient's antisocial behaviors, which are lifelong, are mitigated to some extent when he is being successfully treated for his psychotic disorder. Accordingly, the approach will be to address his antisocial behaviors by focusing on addressing his psychosis. 12/22 -The patient's long-standing history of antisocial behaviorbehavior which reportedly predates the onset of his symptoms of schizophreniahave not been a focus of treatment and are unlikely to change. Careful monitoring, diversion, containment to the degree possible, to containment of the most appropriate interventions for this problem. Inventory Assets Strengths: Good physical health. Able to form alliances with certain peers. Concerned and supportive parents. Needs: Continued adherence with psychiatric medications. Sustained recovery from psychotic features. Risk Factors Assessment Male: Yes : Yes Do You Have Access To A Gun?: No Health Problems: Yes Mental Health Diagnoses: Yes Substance Use Disorders: Yes Previous Attempt: No Previous Psychiatric Hospitalization: Yes Hopelessness: No Smoker: Yes Protective Factors Assessment Holiness Beliefs: No : No Responsible for Young Children: No Employed: No Stable Relationships: No Supportive Family: Yes Good Rapport with Provider: No Absence of Any Risk Factors Above: No Interval History Identifying Information APRIL GONZALEZ is a 43-year-old M who lives in [place] with his parents, has a history of a psychotic disorder (specific diagnosis not yet known, but history of multiple previous hospitalizations including a 1 year state hospitalization in [place]), and was admitted on 12/14/18 03:41 on a 302 involuntary commitment for psychosis, treatment noncompliance, and erratic, unsafe behavior. He is on a 304 involuntary commitment as of 12/26/2018. Chief Complaint "Fine". Review of Systems Sleep Information Total Hours of Sleep: 9.75 Sleep Comments: pt appeared to sleep 2.75 hrs during evening shift. pt on q-15 minute checks Meal Information Percent Meal Consumed - Breakfast: 100 Percent Meal Consumed - Lunch: 100 Percent Meal Consumed - Dinner: 100 Nutrition Comment: pt. sleeping Subjective Subjective Patient was seen & assessed and interval progress reviewed with nursing and social work. Staff report he is refusing groups, isolating in his room, and refused his clozapine. He requested and received Lorazepam for anxiety. He spends most of his time in his room in bed, occasionally coming out to watch television. He asked nursing staff for a "list of integrative medicine physician," and became agitated, stating that staff needed to get him a dater assembler. When advised that he has a director public policy, he said she was not returning his calls, but could not remember when he had last attempted to contact her. During safety checks, it was discovered that the patient had been collecting pictures of young girls from newspapers and magazines. His mother informed staff that when she spoke to him on the phone, he was becoming sexually inappropriate and was focused on females. On my assessment, the patient was seen in his room, where he has returned to bed after eating breakfast. He states that his mood is "good, fine." He denies 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 and paranoia, SI and HI. He reports good appetite and sleep, and feels that he is not sleeping enough because his bed is uncomfortable. He says he has been spending a lot of time in bed because "all my bones hurt" when he is up and out of bed. He is refusing to participate in physical activity, such as walking or exercise group. He states he is willing to go to the CRR, and would like to discuss it with his outpatient immigration case worker. He continues to refuse clozapine, but states he will take the haloperidol. Physical Exam Psychiatric Orientation: alert, oriented x 3 and cooperative (But give short, vague answers at time) Apperance: appropriately dressed and appropriately groomed; + did not appear stated age Eye Contact: + fair eye contact Motor Behavior: steady gait and station and no abnormal motor movements Speech: normal rate/rhythm/volume of speech Affect: + blunted affect "Fine." Thought Process: goal directed thought process Thought Content: + delusions (That he has a bone disease) Suicidal Thoughts: denies suicidal thoughts Homicidal Thoughts: denies homicidal thoughts Hallucinations: no auditory 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 and no visual 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 Cognition: recent memory grossly intact, attention grossly intact and language grossly intact Estimated Intelligence: consistent with education level Insight: + severely impaired insight Judgement: + impaired judgement Vital Signs (Past 24 Hours) Last Vital Signs Temp 36.6 C 01/02/19 06:51 Pulse 97 H 01/02/19 06:52 Resp 18 01/02/19 06:51 BP 105/74 01/02/19 06:52 Pulse Ox 97 12/14/18 03:38 Results & Data Current Inpatient Medications Current Inpatient Medications: Current Inpatient Medications Acetaminophen (Tylenol) 650 mg PO Q4H PRN PRN Reason: Headache or Minor Fever Stop: 01/13/19 02:51 Last Admin: 01/01/19 17:41 Dose: 650 mg Documented by: Al Hydrox/Mg Hydrox/Simethicone (Maalox) 30 ml PO Q4H PRN PRN Reason: GI Upset Stop: 01/13/19 02:51 Benztropine Mesylate (Cogentin) 1 mg PO BID PRN PRN Reason: akathisia Stop: 01/26/19 20:59 Last Admin: 12/27/18 20:05 Dose: 1 mg Documented by: Bismuth Subsalicylate (Kaopectate) 15 ml PO PRN PRN PRN Reason: Loose Stool Stop: 01/13/19 02:51 Clozapine (Clozaril) 25 mg PO BID [facility] Stop: 01/29/19 20:59 Last Admin: 01/02/19 08:21 Dose: Not Given Documented by: Docusate Sodium (Colace) 100 mg PO HS [facility] Stop: 01/23/19 21:59 Last Admin: 01/01/19 21:10 Dose: Not Given Documented by: Haloperidol (Haldol) 10 mg PO Q4 PRN PRN Reason: psychosis or agitation Stop: 01/13/19 03:55 Last Admin: 12/31/18 12:24 Dose: 10 mg Documented by: Haloperidol (Haldol) 10 mg PO QAM [facility] Stop: 02/01/19 08:59 Last Admin: 01/02/19 08:20 Dose: 10 mg Documented by: Haloperidol (Haldol) 15 mg PO DAILY@16 [facility] Stop: 01/31/19 15:59 Last Admin: 01/01/19 16:27 Dose: 15 mg Documented by: Haloperidol Lactate (Haldol) 10 mg IM Q4 PRN PRN Reason: psychosis or agitation Stop: 01/13/19 03:55 Last Admin: 12/28/18 16:54 Dose: 10 mg Documented by: Haloperidol Lactate (Haldol) 10 mg IM 0900,1600 PRN PRN Reason: refusal of PO Stop: 01/20/19 09:56 Hydroxyzine HCl (Vistaril) 25 mg PO Q4H PRN PRN Reason: Anxiety Stop: 01/13/19 02:51 Last Admin: 01/01/19 10:27 Dose: 25 mg Documented by: Hydroxyzine HCl (Vistaril) 50 mg PO HSZ PRN PRN Reason: Insomnia Stop: 01/13/19 02:51 Last Admin: 12/30/18 21:48 Dose: 50 mg Documented by: Lorazepam (Ativan) 1 mg PO Q4 PRN PRN Reason: Agitation Stop: 01/13/19 03:52 Last Admin: 01/02/19 08:19 Dose: 1 mg Documented by: Lorazepam (Ativan) 1 mg IM Q4 PRN PRN Reason: Agitation Stop: 01/13/19 03:54 Magnesium Hydroxide (Milk Of Magnesia) 30 ml PO DAILY PRN PRN Reason: Heartburn Stop: 01/13/19 02:51 Menthol (Nice) 1 be BUCCAL Q2H PRN PRN Reason: Sore Throat Stop: 01/19/19 20:40 Last Admin: 12/20/18 20:52 Dose: 1 be Documented by: Miscellaneous (Remove Nicoderm Patch) 1 ea N/A DAILY@2100 [facility] Stop: 01/13/19 20:59 Last Admin: 01/01/19 18:49 Dose: 1 ea Documented by: Nicotine (Nicoderm Cq) 21 mg TD QAM [facility] Stop: 01/13/19 08:59 Last Admin: 01/02/19 08:26 Dose: 21 mg Documented by: Nicotine Polacrilex (Nicorette 2mg) 1 piece MT UD PRN PRN Reason: Nicotine Withdrawal Stop: 01/13/19 08:20 Last Admin: 01/01/19 18:48 Dose: 1 piece Documented by: Sodium Chloride (Comstock Nasal) 1 - 2 sprays NA PRN PRN PRN Reason: Nasal Dryness/Congestion Stop: 01/13/19 02:51 Post Discharge Appointments Primary Care Physician Name Of Family Doctor: Denies Therapist Name of Therapist: Denies Ballast Cleaning Operator Name of Ballast Cleaning Operator: [employer] Phone Number for Ballast Cleaning Operator: [phone] Case Management Appointment Comment: [address], [address], [place], [place] CPT Code CPT Code 50039
[2019-01-02] MEDS: ACETAMINOPHEN 325 MG TAB PO PRN ×2 (15:10→21:07)
[2019-01-02] MEDS: HALOPERIDOL 5 MG TAB PO PRN (15:11)
[2019-01-02] MEDS: BENZTROPINE MESYLATE 1 MG TAB PO PRN (15:11)
[2019-01-02] MEDS: NICOTINE POLACRILEX 2 MG GUM MT PRN (20:34)
[2019-01-02] MEDS: DOCUSATE SODIUM 100 MG CAP PO SCH (21:03)
[2019-01-02] MEDS: HALOPERIDOL 5 MG TAB PO SCH (21:03)
[2019-01-03] MEDS: NICOTINE 21 MG/24 HR TDSY TD SCH (09:48)
[2019-01-03] MEDS: cloZAPine 25 MG TAB PO SCH ×2 (09:49→21:13)
[2019-01-03] MEDS: HALOPERIDOL 10 MG TABLET PO SCH (09:52)
[2019-01-03] MEDS: LORazepam 1 MG TAB PO PRN ×2 (11:04→19:45)
--- NOTE | 2019-01-03 12:23 | Psychiatric Progress Note ---
Date of Service January 03, 2019 Impression / Recommendations Impression Remains with distorted thoughts, but in good behavioral control. Is taking haldol willingly, but refusing Clozaril. Our plan is still to recommend the [facility] given his inconsistent commitment to meds and treatment, history of violence and complete lack of insight into his meds. Continue current meds and plan, as haldol just increased 2 days ago. (1) Thought disorder: 12/14 -patient is a poor historian, but mother provides historical information. 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 For now we will collect psychosis not otherwise specified. -Patient is refusing to sign releases for previous outpatient providers in [place], and staff contacted them but they refused to provide any information without a signed release. -Medically necessary private room due to psychosis, erratic and disorganized behavior, history of violence, and aggressive behavior and threats to harm others here in the hospital. -Start haloperidol 5 mg twice daily, as patient has a previous good response to Haldol Decanoate and clozapine. Recommend medications over objection once he is on a 303 involuntary commitment and has been seen by a second physician, as he has severe psychotic symptoms which are preventing him from accurately interpreting reality, influencing his behavior, and placing him at risk of harm to both himself and others as he has been acting on his delusions, experiencing auditory and visual 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, paranoia, engaging in unsafe behaviors including driving when he does not have a license or the knowledge to do so, abusing substances, and has been threatening towards others. He demonstrates no insight into his condition, but available information indicates response to treatment with antipsychotic medications in the past. -Medically necessary private room due to psychosis, aggressive behavior, and threats to harm others. -We will need to check fasting lipid profile and glucose once he is cooperative. -Excused from groups from the time being until able to participate appropriately. -Refusing to sign releases for parents, but mother is petitioner, so can inform her of the 303 hearing. 12/15 -The patient did except a single dose of lorazepam this morning, and did seem to be somewhat more calm. He was mildly labile during his involuntary commitment hearing this morning, but managed to maintain control and was not aggressive during the hearing or upon learning that he had been retained by the major gifts officer. Accordingly, we will continue to offer him lorazepam, since this medication in his case does not seem to be disinhibiting and, at least today, appeared to have helped him manage angry impulses during his involuntary commitment hearing. -The treatment team and I agree that, if possible, we would like to convince the patient to voluntarily take oral medications. Reports are that this morning he came close to taking oral haloperidol, but at the last minute declined. He is telling us that he will consistently refused medications, but our hope is that as we are able to gain his trust he will become more cooperative. We will continue to try to convince the patient to take oral haloperidol, but if this is unsuccessful we will seek two physician approval of medication over objection and give Haldol 5 mg IM BID. 12/16--tolerating Haldol, titrate to 10 mg BID. 12/18 - Continue haldol 10 mg bid - Continue discussion about LAMA - Encourage better sleep hygiene, staying awake in the day to promote sleep at night. 12/19 - Patient allowed labs to be drawn. FBS 93, FLP WNL with the exception of triglycerides of 186. Counseled to avoid fatty red meats, saturated fats. 12/20 -Again discussed the recommendations for long-acting injectable antipsychotic medication with the patient, which he initially declined because he said medications are poison. He has a meeting with his family this afternoon, and I will order the first loading dose of Haldol Decanoate 50 mg IM to be administered this afternoon, and if he is unwilling to take it, we will likely need to proceed with medications over objection tomorrow. We will try to enc ourage him to accept the intervention, as he reportedly did fairly well on this medication in the past. 12/21 -proceed with medications over objection: Haldol Decanoate 100 mg IM today, and Haldol 10 mg IM for refusal of oral Haldol. He will need 100-200 mg of Haldol Decanoate every 4 weeks based on his current oral dose, so will continue oral haloperidol for now until we can monitor response to the decanoate. 12/22 -the patient received Haldol Decanoate intramuscularly today, as a medication over objection. He tolerated the injection well, and today tells me that he "feels pretty good." -Today, the patient's associations seemed to be fairly tight on examination. He tends to be somewhat concrete in his thinking, but, as above, he did seem able to understand our rationale for continuing inpatient treatment at this point. 12/23 - tolerating halol dec w/o EPS or other complaints. will need to consider reduction of oral dose in approx 1 week. 12/24 - pt remains less acutely behaviorally disturbed since Haldol dec injection last however evidenced mild acting out when physically uncomfortable today - will add standing docusate 100mg po qhs and encourage oral hydration today for complaint of hard stool - meeting / [facility] services tomorrow to explore dispo options 12/25 - Increase in irritability - Planning meeting held with [facility]: possibility for CRR vs state hospital - Continue current meds and encourage prns 12/26 - 304 granted. Meeting with [facility], patient and parents held yesterday: parents confirmed he cannot return home. Treatment team and [facility] recommends state hospitalization, as patient not appropriate for CRR placement due to severity of symptoms and unwillingness for outpatient treatment and medications. 12/27 - Continue current medication regimen - Orders placed for necessary EKG, TB skin test to accompany [place] referral - Place on high elopement precautions last evening due to suspicious loitering at the entryway of the unit - Reviewed records from [facility] - previous diagnoses were schizoaffective disorder and substance abuse 12/28 - Continue current medication regimen - EKG and PPD completed yesterday - PPD will need read on 12/30 12/29 -Add clozapine 12.5 mg BID and increase as tolerated by 25 mg per day to a dose of 300 mg daily (in two divided dosages, or all at bedtime).' 12/30 -titrating clozapine to 12.5 am and 25mg hs for 12/30 with plan to increase to 25mg bid on 12/31 and likely further titration if tolerating -maintained Haldol decanoate and Haldol po unchanged for now, with consideration of weaning Haldol po dose if clozapine is effective ,, although pt appears to have history of both Haldol forms being rx'd while on past clozapine med trial. Pt has been observed by staff to be improving as obtaining medication of haldol (including the immediate IM doses) 12/31 close monitoring for checking, continue plan above for IM Haldol over objection if checking haldol scheduled doses. Maintain clozapine dosing plan for now with potential re-considering clozapine plan if compklaince issues are occuring. Consider further titration of haldol decanoate as appropaite. 01/01 - Patient refusing Clozaril. Will leave in place, but not force meds over objection for refusal - Increase Haldol to 10 mg AM and 15 mg HS, with meds over objection for refusal - Continue MNPR due to irritability and hx of violence 01/02 -continue oral haloperidol 10 mg every morning and 15 mg at bedtime (moved to later time to try to minimize sedation/spending excessive time in bed during the day), and Haldol decanoate, next injection due 01/19/2019. Continue Lorazepam as needed. -He continues to refuse clozapine. 01/03 - Continue current meds and plan - Continuef MNPR in deference to history of violence toward others. (2) Noncompliance with medications: 12/14 -stopped his medications 6 months ago and has decompensated since. Would benefit from a long-acting injectable, and either long-term inpatient treatment at the [facility] or involuntary outpatient treatment.. 12/15 -The patient's psychosis and severely impaired insight seem to be making him and accessible to reason, regarding the essential importance of psychiatric medications. There is a past history of favorable response to haloperidol as well as to clozapine. It is agreed that the patient would in all likelihood benefit from a long-acting injectable antipsychotic medication, given his history of recurrent medication nonadherence. 12/16--currently taking PO for a few doses, is on extended involuntary commitment and clearly ongoing schizophrenia which will fail to improve for him to be able to provide self-care without ongoing treatments on inpatient unit and me dications over objection. Without antipsychotic medication he is at significant risk of /serious disability and a danger to himself/others. Dr. Srinivasan could provide second opinion if he refuses PO med. 12/18- Patient refusing to consider LAMA at this time. Will continue to encourage 12/21 -patient continues to refuse Haldol Decanoate, and is now also refusing oral Haldol. We will proceed with medications over objection, as he has a diagnosis of primary thought disorder, has benefited from Haldol Decanoate in the past, he is actively delusional and is refusing medications due to psychotic thought processes, and is at risk of harm to both himself and others if he remains untreated. He has a significant history of violence tied to his delusions, and it will be important to get his symptoms adequately managed to decrease the risk of violence towards others here in the hospital. 12/22 -medication adherence is most certainly going issue with this patient. We are recommending the continued use of Depo forms of antipsychotic medications, but, in the past, the patient has simply refused to return to the office of the healthcare professional who is administering the sectionas was the case last year when, after doing reasonably well, he stopped going for treatment, and stopped excepting medications. For this reason, we are carefully looking for a supportive living setting for this patient, preferably one that has the resources necessary to assist the resistant, not adherent to patient. 12/24 - remains better compliant with PO meds 12/25 - Takes meds when he thinks he needs them, but voiced some question about taking anything regularly after discharge. 12/29 -the patient refused a dose of haloperidol yesterday and received haloperidol 10 mg intramuscularly over objection from disease no holes were required and the patient was cooperative with the injection closed with disease. Afterwards, he wondered out loud why he had refused the medication, knowing that he would get it "one way or the other." Because the patient seemed to have responded well, in terms of his disorganized thinking, to the intramuscular dose of haloperidol, there has been some discussion in the team regarding the question of "cheeking" his oral medications. However, the explanation may be that haloperidol 10 mg IM is more potent than orally. In any event, today the patient commits to continued adherence with his medications as he acknowledges that he does feel that they have been helpful to him. 12/31 -potential signs of non compliance 12/30 and 12/31, consider further titration of haldol deaconate as appropriate to help ensure as full of dose being obtained as possible. maintained plan of haldol IM injections for non compliance of haldol po doses (3) Substance abuse: 12/14 -patient is not forthcoming, but mother reports he has been abusing alcohol, cough syrup, diphenhydramine, and likely other substances. We will monitor for withdrawal symptoms, and as his psychosis improves, will provide psychoeducation about the risks of substance abuse and recommendations for abstinence. -Avoid controlled substances given high risk of abuse/misuse/negative outcomes. 12/15 -It is recognized that the patient has an extensive history of abusing chemical substances, and it is generally agreed that use of controlled substances does pose significant risk of abuse and other negative outcomes in the long-term. However, the patient's irritability and unwillingness to cooperate with essential medications, such as haloperidol, as well as his history of physical aggression towards others, may be mitigated by the temporary use of a benzodiazepine. Today, a single dose of lorazepam seems to have been effective in helping the patient maintain composure during an involuntary commitment hearing that did not go in his favor, and staff have noticed that he has been somewhat more cooperative today, possibly in response to the dose of lorazepam. Accordingly, staff will continue to offer the patient as needed lorazepam. 12/21 -admission drug screen was positive for benzodiazepines, with significantly elevated temazepam (> 2000) and elevated oxazepam levels. Although he denied taking benzodiazepines prior to admission, he clearly was accessing them somehow. 12/22 -the patient is able to give what may be referred to as "lip service" to the concept of abstinence from drugs of abuse, but he seems to have little or no insight into the risks associated with his abuse of mood altering chemical substances, particularly within the context of his psychiatric illness. Again, a whole will be to identify an aftercare placement that we will be able to monitor him more assiduously for access to abusable chemical substances, including prescription medications, alcohol, and other drugs of abuse. (4) Antisocial personality disorder: 12/14 -extensive, lifelong history provided by adoptive mother which reveals a pervasive pattern of disregard for and violation of the rights of others which started at age 8 or earlier, failure to conform to social norms with respect to lawful behaviors as indicated by repeatedly performing acts that are grounds for arrest, deceitfulness, impulsivity and failure to plan ahead, irritability and aggressiveness, reckless disregard for safety of self and others, consistent irresponsibility, and lack of remorse. 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 -Reviewed expectations with respect to behavior on the unit. 12/15 -The patient's history of antisocial behavior is noted, and antisocial personality will not be a focus of treatment during this hospitalization. However, the record indicates that the patient's antisocial behaviors, which are lifelong, are mitigated to some extent when he is being successfully treated for his psychotic disorder. Accordingly, the approach will be to address his antisocial behaviors by focusing on addressing his psychosis. 12/22 -The patient's long-standing history of antisocial behaviorbehavior which reportedly predates the onset of his symptoms of schizophreniahave not been a focus of treatment and are unlikely to change. Careful monitoring, diversion, containment to the degree possible, to containment of the most appropriate interventions for this problem. Inventory Assets Strengths: Good physical health. Able to form alliances with certain peers. Concerned and supportive parents. Needs: Continued adherence with psychiatric medications. Sustained recovery from psychotic features. Risk Factors Assessment Male: Yes : Yes Do You Have Access To A Gun?: No Health Problems: Yes Mental Health Diagnoses: Yes Substance Use Disorders: Yes Previous Attempt: No Previous Psychiatric Hospitalization: Yes Hopelessness: No Smoker: Yes Protective Factors Assessment Islam Beliefs: No : No Responsible for Young Children: No Employed: No Stable Relationships: No Supportive Family: Yes Good Rapport with Provider: No Absence of Any Risk Factors Above: No Interval History Identifying Information APRIL GONZALEZ is a 43-year-old M who lives in [place] with his parents, has a history of a psychotic disorder (specific diagnosis not yet known, but history of multiple previous hospitalizations including a 1 year state hospitalization in [place]), and was admitted on 12/14/18 03:41 on a 302 involuntary commitment for psychosis, treatment noncompliance, and erratic, unsafe behavior. He is on a 304 involuntary commitment as of 12/26/2018. Chief Complaint "I'm good. ". Review of Systems Sleep Information Total Hours of Sleep: 7.25 Sleep Comments: pt on q-15 minute checks Meal Information Percent Meal Consumed - Breakfast: 100 Percent Meal Consumed - Lunch: 100 Percent Meal Consumed - Dinner: 100 Nutrition Comment: pt. sleeping Subjective Subjective Patient was seen & assessed and interval progress reviewed with Treatment Team. The patient says that he is doing well today, reporting good mood. He denies 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 of any kind, and denies side effects to meds. He continues to refuse Clozaril saying he put too much weight on when he was on it last. He reports that he is eating and sleeping well, but not showering regularly, because he doesn't like the way he looks, with extra weight. Staff report that he called his mother last evening to say that he would be discharged today, which is untrue. Mother then called nurses station to report this, and her concerns that he seems more sexually preoccupied ie tried to kiss her on the mouth twice. Staff also found more cut out pictures of females in his room. Physical Exam Psychiatric Orientation: alert and cooperative Apperance: appropriately dressed Eye Contact: good eye contact Motor Behavior: steady gait and station restless movements of his legs Speech: normal rate/rhythm/volume of speech Affect: euthymic affect Mood: no depressed mood and no anxious mood Thought Process: goal directed thought process Thought Content: + cognitive distortions Suicidal Thoughts: denies suicidal thoughts Homicidal Thoughts: denies homicidal thoughts Hallucinations: no auditory 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 and no visual 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 Cognition: attention grossly intact and language grossly intact Estimated Intelligence: consistent with education level Insight: + impaired insight Judgement: + impaired judgement Vital Signs (Past 24 Hours) Last Vital Signs Temp 36.4 C L 01/03/19 06:54 Pulse 99 H 01/03/19 06:55 Resp 18 01/03/19 06:54 BP 106/71 01/03/19 06:55 Pulse Ox 97 12/14/18 03:38 Results & Data Current Inpatient Medications Current Inpatient Medications: Current Inpatient Medications Acetaminophen (Tylenol) 650 mg PO Q4H PRN PRN Reason: Headache or Minor Fever Stop: 01/13/19 02:51 Last Admin: 01/02/19 21:07 Dose: 650 mg Documented by: Al Hydrox/Mg Hydrox/Simethicone (Maalox) 30 ml PO Q4H PRN PRN Reason: GI Upset Stop: 01/13/19 02:51 Benztropine Mesylate (Cogentin) 1 mg PO BID PRN PRN Reason: akathisia Stop: 01/26/19 20:59 Last Admin: 01/02/19 15:11 Dose: 1 mg Documented by: Bismuth Subsalicylate (Kaopectate) 15 ml PO PRN PRN PRN Reason: Loose Stool Stop: 01/13/19 02:51 Clozapine (Clozaril) 25 mg PO BID KELLY Stop: 01/29/19 20:59 Last Admin: 01/03/19 09:49 Dose: Not Given Documented by: Docusate Sodium (Colace) 100 mg PO HS [facility] Stop: 01/23/19 21:59 Last Admin: 01/02/19 21:03 Dose: Not Given Documented by: Haloperidol (Haldol) 10 mg PO Q4 PRN PRN Reason: psychosis or agitation Stop: 01/13/19 03:55 Last Admin: 01/02/19 15:11 Dose: 10 mg Documented by: Haloperidol (Haldol) 10 mg PO QAM [facility] Stop: 02/01/19 08:59 Last Admin: 01/03/19 09:52 Dose: 10 mg Documented by: Haloperidol (Haldol) 15 mg PO HS [facility] Stop: 02/01/19 21:59 Last Admin: 01/02/19 21:03 Dose: 15 mg Documented by: Haloperidol Lactate (Haldol) 10 mg IM Q4 PRN PRN Reason: psychosis or agitation Stop: 01/13/19 03:55 Last Admin: 12/28/18 16:54 Dose: 10 mg Documented by: Haloperidol Lactate (Haldol) 10 mg IM 0900,1600 PRN PRN Reason: refusal of PO Stop: 01/20/19 09:56 Hydroxyzine HCl (Vistaril) 25 mg PO Q4H PRN PRN Reason: Anxiety Stop: 01/13/19 02:51 Last Admin: 01/03/19 11:04 Dose: 25 mg Documented by: Hydroxyzine HCl (Vistaril) 50 mg PO HSZ PRN PRN Reason: Insomnia Stop: 01/13/19 02:51 Last Admin: 01/02/19 21:05 Dose: 50 mg Documented by: Lorazepam (Ativan) 1 mg PO Q4 PRN PRN Reason: Agitation Stop: 01/13/19 03:52 Last Admin: 01/03/19 11:04 Dose: 1 mg Documented by: Lorazepam (Ativan) 1 mg IM Q4 PRN PRN Reason: Agitation Stop: 01/13/19 03:54 Magnesium Hydroxide (Milk Of Magnesia) 30 ml PO DAILY PRN PRN Reason: Heartburn Stop: 01/13/19 02:51 Menthol (Nice) 1 be BUCCAL Q2H PRN PRN Reason: Sore Throat Stop: 01/19/19 20:40 Last Admin: 12/20/18 20:52 Dose: 1 be Documented by: Miscellaneous (Remove Nicoderm Patch) 1 ea N/A DAILY@2100 [facility] Stop: 01/13/19 20:59 Last Admin: 01/02/19 21:03 Dose: Not Given Documented by: Nicotine (Nicoderm Cq) 21 mg TD QAM KELLY Stop: 01/13/19 08:59 Last Admin: 01/03/19 09:48 Dose: 21 mg Documented by: Nicotine Polacrilex (Nicorette 2mg) 1 piece MT UD PRN PRN Reason: Nicotine Withdrawal Stop: 01/13/19 08:20 Last Admin: 01/02/19 20:34 Dose: 1 piece Documented by: Sodium Chloride ([place] Nasal) 1 - 2 sprays NA PRN PRN PRN Reason: Nasal Dryness/Congestion Stop: 01/13/19 02:51 Post Discharge Appointments Primary Care Physician Name Of Family Doctor: Denies Therapist Name of Therapist: Denies Senior Office Assistant Name of Senior Office Assistant: [employer] Phone Number for Senior Office Assistant: [phone] Case Management Appointment Comment: [address], [address], [place], [place] CPT Code CPT Code 03583
[2019-01-03] MEDS: ACETAMINOPHEN 325 MG TAB PO PRN ×2 (14:39→19:46)
[2019-01-03] MEDS: HALOPERIDOL 5 MG TAB PO PRN (15:33)
[2019-01-03] MEDS: DOCUSATE SODIUM 100 MG CAP PO SCH (21:13)
[2019-01-03] MEDS: HALOPERIDOL 5 MG TAB PO SCH (21:13)
[2019-01-04] MEDS ORDERED: DOCUSATE SODIUM 100 MG CAP PO PRN (08:22)
[2019-01-04] MEDS: NICOTINE 21 MG/24 HR TDSY TD SCH (08:24)
[2019-01-04] MEDS: ACETAMINOPHEN 325 MG TAB PO PRN ×3 (08:25→21:52)
[2019-01-04] MEDS: cloZAPine 25 MG TAB PO SCH ×2 (08:25→21:00)
[2019-01-04] MEDS: HALOPERIDOL 10 MG TABLET PO SCH (08:25)
--- NOTE | 2019-01-04 10:49 | Psychiatric Progress Note ---
Date of Service January 04, 2019 Impression / Recommendations Impression Little change to his condition. He is in good behavioral control, but his distorted thoughts remains just below the surface. It remains that he cannot return to his mother's home, and the CRR seems unlikely given his vascillating willingness to attend programming and history of violence. We continue to recommend the [facility] and a meeting has been scheduled with the [facility] for further discussion. (1) Thought disorder: 12/14 -patient is a poor historian, but mother provides historical information. 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 For now we will collect psychosis not otherwise specified. -Patient is refusing to sign releases for previous outpatient providers in [place], and staff contacted them but they refused to provide any information without a signed release. -Medically necessary private room due to psychosis, erratic and disorganized behavior, history of violence, and aggressive behavior and threats to harm others here in the hospital. -Start haloperidol 5 mg twice daily, as patient has a previous good response to Haldol Decanoate and clozapine. Recommend medications over objection once he is on a 303 involuntary commitment and has been seen by a second physician, as he has severe psychotic symptoms which are preventing him from accurately interpret ing reality, influencing his behavior, and placing him at risk of harm to both himself and others as he has been acting on his delusions, experiencing auditory and visual 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, paranoia, engaging in unsafe behaviors including driving when he does not have a license or the knowledge to do so, abusing substances, and has been threatening towards others. He demonstrates no insight into his condition, but available information indicates response to treatment with antipsychotic medications in the past. -Medically necessary private room due to psychosis, aggressive behavior, and threats to harm others. -We will need to check fasting lipid profile and glucose once he is cooperative. -Excused from groups from the time being until able to participate appropriately. -Refusing to sign releases for parents, but mother is petitioner, so can inform her of the 303 hearing. 12/15 -The patient did except a single dose of lorazepam this morning, and did seem to be somewhat more calm. He was mildly labile during his involuntary commitment hearing this morning, but managed to maintain control and was not aggressive during the hearing or upon learning that he had been retained by the commissary officer. Accordingly, we will continue to offer him lorazepam, since this medication in his case does not seem to be disinhibiting and, at least today, appeared to have helped him manage angry impulses during his involuntary commitment hearing. -The treatment team and I agree that, if possible, we would like to convince the patient to voluntarily take oral medications. Reports are that this morning he came close to taking oral haloperidol, but at the last minute declined. He is telling us that he will consistently refused medications, but our hope is that as we are able to gain his trust he will become more cooperative. We will continue to try to convince the patient to take oral haloperidol, but if this is unsuccessful we will seek two physician approval of medication over objection and give Haldol 5 mg IM BID. 12/16--tolerating Haldol, titrate to 10 mg BID. 12/18 - Continue haldol 10 mg bid - Continue discussion about LAMA - Encourage better sleep hygiene, staying awake in the day to promote sleep at night. 12/19 - Patient allowed labs to be drawn. FBS 93, FLP WNL with the exception of triglycerides of 186. Counseled to avoid fatty red meats, saturated fats. 12/20 -Again discussed the recommendations for long-acting injectable antipsychotic medication with the patient, which he initially declined because he said medications are poison. He has a meeting with his family this afternoon, and I will order the first loading dose of Haldol Decanoate 50 mg IM to be administered this afternoon, and if he is unwilling to take it, we will likely need to proceed with medications over objection tomorrow. We will try to encourage him to accept the intervention, as he reportedly did fairly well on this medication in the past. 12/21 -proceed with medications over objection: Haldol Decanoate 100 mg IM today, and Haldol 10 mg IM for refusal of oral Haldol. He will need 100-200 mg of Haldol Decanoate every 4 weeks based on his current oral dose, so will continue oral haloperidol for now until we can monitor response to the decanoate. 12/22 -the patient received Haldol Decanoate intramuscularly today, as a medication over objection. He tolerated the injection well, and today tells me that he "feels pretty good." -Today, the patient's associations seemed to be fairly tight on examination. He tends to be somewhat concrete in his thinking, but, as above, he did seem able to understand our rationale for continuing inpatient treatment at this point. 12/23 - tolerating halol dec w/o EPS or other complaints. will need to consider reduction of oral dose in approx 1 week. 12/24 - pt remains less acutely behaviorally disturbed since Haldol dec injection last however evidenced mild acting out when physically uncomfortable today - will add standing docusate 100mg po qhs and encourage oral hydration today for complaint of hard stool - meeting / [facility] services tomorrow to explore dispo options 12/25 - Increase in irritability - Planning meeting held with [facility]: possibility for CRR vs state hospital - Continue current meds and encourage prns 12/26 - 304 granted. Meeting with [facility], patient and parents held yesterday: parents confirmed he cannot return home. Treatment team and [facility] recommends state hospitalization, as patient not appropriate for CRR placement due to severity of symptoms and unwillingness for outpatient treatment and medications. 12/27 - Continue current medication regimen - Orders placed for necessary EKG, TB skin test to accompany [place] referral - Place on high elopement precautions last evening due to suspicious loitering at the entryway of the unit - Reviewed records from [facility] - previous diagnoses were schizoaffective disorder and substance abuse 12/28 - Continue current medication regimen - EKG and PPD completed yesterday - PPD will need read on 12/30 12/29 -Add clozapine 12.5 mg BID and increase as tolerated by 25 mg per day to a dose of 300 mg daily (in two divided dosages, or all at bedtime).' 12/30 -titrating clozapine to 12.5 am and 25mg hs for 12/30 with plan to increase to 25mg bid on 12/31 and likely further titration if tolerating -maintained Haldol decanoate and Haldol po unchanged for now, with consideration of weaning Haldol po dose if clozapine is effective ,, although pt appears to have history of both Haldol forms being rx'd while on past clozapine med trial. Pt has been observed by staff to be improving as obtaining medication of haldol (including the immediate IM doses) 12/31 close monitoring for checking, continue plan above for IM Haldol over objection if checking haldol scheduled doses. Maintain clozapine dosing plan for now with potential re-considering clozapine plan if compklaince issues are occuring. Consider further titration of haldol decanoate as appropaite. 01/01 - Patient refusing Clozaril. Will leave in place, but not force meds over objection for refusal - Increase Haldol to 10 mg AM and 15 mg HS, with meds over objection for refusal - Continue MNPR due to irritability and hx of violence 01/02 -continue oral haloperidol 10 mg every morning and 15 mg at bedtime (moved to later time to try to minimize sedation/spending excessive time in bed during the day), and Haldol decanoate, next injection due 01/19/2019. Continue Lorazepam as needed. -He continues to refuse clozapine. 01/03 - Continue current meds and plan - Continuef MNPR in deference to history of violence toward others. 01/04 - Continue current meds and plan - Meeting scheduled with the county to discuss disposition (2) Noncompliance with medications: 12/14 -stopped his medications 6 months ago and has decompensated since. Would benefit from a long-acting injectable, and either long-term inpatient treatment at the [facility] or involuntary outpatient treatment.. 12/15 -The patient's psychosis and severely impaired insight seem to be making him and accessible to reason, regarding the essential importance of psychiatric medications. There is a past history of favorable response to haloperidol as well as to clozapine. It is agreed that the patient would in all likelihood benefit from a long-acting injectable antipsychotic medication, given his history of recurrent medication nonadherence. 12/16--currently taking PO for a few doses, is on extended involuntary commitment and clearly ongoing schizophrenia which will fail to improve for him to be able to provide self-care without ongoing treatments on inpatient unit and medications over objection. Without antipsychotic medication he is at significant risk of /serious disability and a danger to himself/others. Dr. Srinivasan could provide second opinion if he refuses PO med. 12/18- Patient refusing to consider LAMA at this time. Will continue to encourage 12/21 -patient continues to refuse Haldol Decanoate, and is now also refusing oral Haldol. We will proceed with medications over objection, as he has a diagnosis of primary thought disorder, has benefited from Haldol Decanoate in the past, he is actively delusional and is refusing medications due to psychotic thought processes, and is at risk of harm to both himself and others if he remains untreated. He has a significant history of violence tied to his delusions, and it will be important to get his symptoms adequately managed to decrease the risk of violence towards others here in the hospital. 12/22 -medication adherence is most certainly going issue with this patient. We are recommending the continued use of Depo forms of antipsychotic medications, but, in the past, the patient has simply refused to return to the office of the healthcare professional who is administering the sectionas was the case last year when, after doing reasonably well, he stopped going for treatment, and stopped excepting medications. For this reason, we are carefully looking for a supportive living setting for this patient, preferably one that has the resources necessary to assist the resistant, not adherent to patient. 12/24 - remains better compliant with PO meds 12/25 - Takes meds when he thinks he needs them, but voiced some question about taking anything regularly after discharge. 12/29 -the patient refused a dose of haloperidol yesterday and received haloperidol 10 mg intramuscularly over objection from disease no holes were required and the patient was cooperative with the injection closed with disease. Afterwards, he wondered out loud why he had refused the medication, knowing that he would get it "one way or the other." Because the patient seemed to have responded well, in terms of his disorganized thinking, to the intramuscular dose of haloperidol, there has been some discussion in the team regarding the question of "cheeking" his oral medications. However, the explanation may be that haloperidol 10 mg IM is more potent than orally. In any event, today the patient commits to continued adherence with his medications as he acknowledges that he does feel that they have been helpful to him. 12/31 -potential signs of non compliance 12/30 and 12/31, consider further titration of haldol deaconate as appropriate to help ensure as full of dose being obtained as possible. maintained plan of haldol IM injections for non compliance of haldol po doses (3) Substance abuse: 12/14 -patient is not forthcoming, but mother reports he has been abusing alcohol, cough syrup, diphenhydramine, and likely other substances. We will monitor for withdrawal symptoms, and as his psychosis improves, will provide psychoeducation about the risks of substance abuse and recommendations for abstinence. -Avoid controlled substances given high risk of abuse/misuse/negative outcomes. 12/15 -It is recognized that the patient has an extensive history of abusing chemical substances, and it is generally agreed that use of controlled substances does pose significant risk of abuse and other negative outcomes in the long-term. However, the patient's irritability and unwillingness to cooperate with essential medications, such as haloperidol, as well as his history of physical aggression towards others, may be mitigated by the temporary use of a benzodiazepine. Today, a single dose of lorazepam seems to have been effective in helping the patient maintain composure during an involuntary commitment hearing that did not go in his favor, and staff have noticed that he has been somewhat more cooperative today, possibly in response to the dose of lorazepam. Accordingly, staff will continue to offer the patient as needed lorazepam. 12/21 -admission drug screen was positive for benzodiazepines, with significantly elevated temazepam (> 2000) and elevated oxazepam levels. Although he denied taking benzodiazepines prior to admission, he clearly was accessing them somehow. 12/22 -the patient is able to give what may be referred to as "lip service" to the concept of abstinence from drugs of abuse, but he seems to have little or no insight into the risks associated with his abuse of mood altering chemical substances, particularly within the context of his psychiatric illness. Again, a whole will be to identify an aftercare placement that we will be able to monitor him more assiduously for access to abusable chemical substances, including prescription medications, alcohol, and other drugs of abuse. (4) Antisocial personality disorder: 12/14 -extensive, lifelong history provided by adoptive mother which reveals a pervasive pattern of disregard for and violation of the rights of others which started at age 8 or earlier, failure to conform to social norms with respect to lawful behaviors as indicated by repeatedly performing acts that are grounds for arrest, deceitfulness, impulsivity and failure to plan ahead, irritability and aggressiveness, reckless disregard for safety of self and others, consistent irresponsibility, and lack of remorse. 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 -Reviewed expectations with respect to behavior on the unit. 12/15 -The patient's history of antisocial behavior is noted, and antisocial personality will not be a focus of treatment during this hospitalization. However, the record indicates that the patient's antisocial behaviors, which are lifelong, are mitigated to some extent when he is being successfully treated for his psychotic disorder. Accordingly, the approach will be to address his antisocial behaviors by focusing on addressing his psychosis. 12/22 -The patient's long-standing history of antisocial behaviorbehavior which reportedly predates the onset of his symptoms of schizophreniahave not been a focus of treatment and are unlikely to change. Careful monitoring, diversion, containment to the degree possible, to containment of the most appropriate interventions for this problem. Inventory Assets Strengths: Good physical health. Able to form alliances with certain peers. Concerned and supportive parents. Needs: Continued adherence with psychiatric medications. Sustained recovery from psychotic features. Risk Factors Assessment Male: Yes : Yes Do You Have Access To A Gun?: No Health Problems: Yes Mental Health Diagnoses: Yes Substance Use Disorders: Yes Previous Attempt: No Previous Psychiatric Hospitalization: Yes Hopelessness: No Smoker: Yes Protective Factors Assessment Judaism Beliefs: No : No Responsible for Young Children: No Employed: No Stable Relationships: No Supportive Family: Yes Good Rapport with Provider: No Absence of Any Risk Factors Above: No Interval History Identifying Information APRIL GONZALEZ is a 43-year-old M who lives in [place] with his parents, has a history of a psychotic disorder (specific diagnosis not yet known, but history of multiple previous hospitalizations including a 1 year state hospitalization in [place]), and was admitted on 12/14/18 03:41 on a 302 involuntary commitment for psychosis, treatment noncompliance, and erratic, unsafe behavior. He is on a 304 involuntary commitment as of 12/26/2018. Chief Complaint "I'm OK. ". Review of Systems Sleep Information Total Hours of Sleep: 9 Sleep Comments: pt on q-15 minute checks Meal Information Percent Meal Consumed - Breakfast: 100 Percent Meal Consumed - Lunch: 100 Percent Meal Consumed - Dinner: 100 Nutrition Comment: pt. sleeping Subjective Subjective Patient was seen & assessed and interval progress reviewed with Treatment Team. The patient has gone back to bed saying that he is tired. He denies any problems and in nonspontaneous in his conversations. In response to questions he says that he is much the same as yesterday, feeling in good spirits and without 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. He denies complaints of side effects or pain, and says that he has nothing that he wants to discuss today. Nursing reports that a meeting has been scheduled with the [facility] to discuss recommendations for the [facility]. nursing also reports that he has been in good behavioral control and taking haldol but refusing to take Clozaril. Physical Exam Psychiatric Orientation: cooperative Apperance: + disheveled Eye Contact: + fair eye contact Motor Behavior: no abnormal motor movements Speech: normal rate/rhythm/volume of speech Affect: euthymic affect (tired) Mood: no depressed mood and no anxious mood Thought Process: goal directed thought process Thought Content: reality based without delusions Suicidal Thoughts: denies suicidal thoughts Homicidal Thoughts: denies homicidal thoughts Hallucinations: no auditory 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 and no visual 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 Cognition: recent memory grossly intact and language grossly intact Estimated Intelligence: consistent with education level Insight: + impaired insight Judgement: + impaired judgement Vital Signs (Past 24 Hours) Last Vital Signs Temp 36.8 C 01/04/19 06:43 Pulse 99 H 01/04/19 06:44 Resp 18 01/04/19 06:43 BP 106/70 01/04/19 06:44 Pulse Ox 97 12/14/18 03:38 Results & Data Current Inpatient Medications Current Inpatient Medications: Current Inpatient Medications Acetaminophen (Tylenol) 650 mg PO Q4H PRN PRN Reason: Headache or Minor Fever Stop: 01/13/19 02:51 Last Admin: 01/04/19 08:25 Dose: 650 mg Documented by: Al Hydrox/Mg Hydrox/Simethicone (Maalox) 30 ml PO Q4H PRN PRN Reason: GI Upset Stop: 01/13/19 02:51 Benztropine Mesylate (Cogentin) 1 mg PO BID PRN PRN Reason: akathisia Stop: 01/26/19 20:59 Last Admin: 01/02/19 15:11 Dose: 1 mg Documented by: Bismuth Subsalicylate (Kaopectate) 15 ml PO PRN PRN PRN Reason: Loose Stool Stop: 01/13/19 02:51 Clozapine (Clozaril) 25 mg PO BID KELLY Stop: 01/29/19 20:59 Last Admin: 01/04/19 08:25 Dose: Not Given Documented by: Docusate Sodium (Colace) 100 mg PO HS PRN PRN Reason: constipation Stop: 01/23/19 21:59 Haloperidol (Haldol) 10 mg PO Q4 PRN PRN Reason: psychosis or agitation Stop: 01/13/19 03:55 Last Admin: 01/03/19 15:33 Dose: 10 mg Documented by: Haloperidol (Haldol) 10 mg PO QAM KELLY Stop: 02/01/19 08:59 Last Admin: 01/04/19 08:25 Dose: 10 mg Documented by: Haloperidol (Haldol) 15 mg PO HS KELLY Stop: 02/01/19 21:59 Last Admin: 01/03/19 21:13 Dose: 15 mg Documented by: Haloperidol Lactate (Haldol) 10 mg IM Q4 PRN PRN Reason: psychosis or agitation Stop: 01/13/19 03:55 Last Admin: 12/28/18 16:54 Dose: 10 mg Documented by: Haloperidol Lactate (Haldol) 10 mg IM 0900,1600 PRN PRN Reason: refusal of PO Stop: 01/20/19 09:56 Hydroxyzine HCl (Vistaril) 25 mg PO Q4H PRN PRN Reason: Anxiety Stop: 01/13/19 02:51 Last Admin: 01/03/19 18:16 Dose: 25 mg Documented by: Hydroxyzine HCl (Vistaril) 50 mg PO HSZ PRN PRN Reason: Insomnia Stop: 01/13/19 02:51 Last Admin: 01/02/19 21:05 Dose: 50 mg Documented by: Lorazepam (Ativan) 1 mg PO Q4 PRN PRN Reason: Agitation Stop: 01/13/19 03:52 Last Admin: 01/03/19 19:45 Dose: 1 mg Documented by: Lorazepam (Ativan) 1 mg IM Q4 PRN PRN Reason: Agitation Stop: 01/13/19 03:54 Magnesium Hydroxide (Milk Of Magnesia) 30 ml PO DAILY PRN PRN Reason: Heartburn Stop: 01/13/19 02:51 Menthol (Nice) 1 be BUCCAL Q2H PRN PRN Reason: Sore Throat Stop: 01/19/19 20:40 Last Admin: 12/20/18 20:52 Dose: 1 be Documented by: Miscellaneous (Remove Nicoderm Patch) 1 ea N/A DAILY@2100 [facility] Stop: 01/13/19 20:59 Last Admin: 01/03/19 21:18 Dose: 1 ea Documented by: Nicotine (Nicoderm Cq) 21 mg TD QAM [facility] Stop: 01/13/19 08:59 Last Admin: 01/04/19 08:24 Dose: 21 mg Documented by: Nicotine Polacrilex (Nicorette 2mg) 1 piece MT UD PRN PRN Reason: Nicotine Withdrawal Stop: 01/13/19 08:20 Last Admin: 01/02/19 20:34 Dose: 1 piece Documented by: Sodium Chloride ([place] Nasal) 1 - 2 sprays NA PRN PRN PRN Reason: Nasal Dryness/Congestion Stop: 01/13/19 02:51 Post Discharge Appointments Primary Care Physician Name Of Family Doctor: Denies Therapist Name of Therapist: Denies Parking Technician Name of Parking Technician: [employer] Phone Number for Parking Technician: [phone] Case Management Appointment Comment: [address] [facility], [address], [place], [place] CPT Code CPT Code 16051
[2019-01-04] MEDS: LORazepam 1 MG TAB PO PRN ×2 (13:26→19:12)
[2019-01-04] MEDS: NICOTINE POLACRILEX 2 MG GUM MT PRN (19:26)
[2019-01-04] MEDS: HALOPERIDOL 5 MG TAB PO SCH (21:00)
[2019-01-05 07:24] LABS: Basophils # (auto) 0.02 K/uL (0-0.2); Basophils % (auto) 0.3 %; Eosinophils # (auto) 0.27 K/uL (0-0.5); Eosinophils % (auto) 4.6 %; Hematocrit (blood only) 44.6 % (42-52); Hemoglobin 15.5 g/dL (14.0-18.0); Immature Granulocytes # (auto) 0.02 K/uL (0.00-0.02); Immature Granulocytes % (auto) 0.3 %; Lymphocytes # (auto) 2.49 K/uL (1.2-3.4); Lymphocytes % (auto) 42.9 %; Mean Corpuscular Hgb Conc 34.8 g/dL (32-36); Mean Corpuscular Volume 89.6 fL (80-100); Mean Platelet Volume 9.9 fL (7.4-10.4); Monocytes # (auto) 0.36 K/uL (0.11-0.59); Monocytes % (auto) 6.2 %; Neutrophils # (auto) 2.65 K/uL (1.4-6.5); Neutrophils % (auto) 45.7 %; Platelet Count 248 K/uL (130-400); RDW Coefficient of Variation 13.3 % (11.5-14.5); RDW Standard Deviation 43.2 fL (36.4-46.3); Red Blood Count 4.98 M/uL (4.7-6.1); White Blood Count 5.81 K/uL (4.8-10.8)
[2019-01-05] MEDS: LORazepam 1 MG TAB PO PRN ×2 (07:57→17:59)
[2019-01-05] MEDS: HALOPERIDOL 10 MG TABLET PO SCH (07:57)
[2019-01-05] MEDS: NICOTINE 21 MG/24 HR TDSY TD SCH (07:58)
[2019-01-05] MEDS: cloZAPine 25 MG TAB PO SCH ×2 (07:58→21:52)
--- NOTE | 2019-01-05 10:10 | Psychiatric Progress Note ---
Date of Service January 05, 2019 Impression / Recommendations Impression Despite mouth checks, the patient has been cheeking his haldol, and was caught doing so this AM and was then given an IM which he took without incident. I will switch pills to liquid for improved compliance. We should continue to encourage participation in groups and exercise, but his behaviors are not hopeful that he will be able to tolerate a lesser restrictive environment like the CRR. Our recommendation remains that he should go to the [facility] and we will discuss this further at the planning meeting scheduled for next Tuesday. (1) Thought disorder: 12/14 -patient is a poor historian, but mother provides historical information. 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 For now we will collect psychosis not otherwise specified. -Patient is refusing to sign releases for previous outpatient providers in [place], and staff contacted them but they refused to provide any information without a signed release. -Medically necessary private room due to psychosis, erratic and disorganized behavior, history of violence, and aggressive behavior and threats to harm others here in the hospital. -Start haloperidol 5 mg twice daily, as patient has a previous good response to Haldol Decanoate and clozapine. Recommend medications over objection once he is on a 303 involuntary commitment and has been seen by a second physician, as he has severe psychotic symptoms which are preventing him from accurately interpreting reality, influencing his behavior, and placing him at risk of harm to both himself and others as he has been acting on his delusions, experiencing auditory and visual 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, paranoia, engaging in unsafe behaviors including driving when he does not have a license or the knowledge to do so, abusing substances, and has been threatening towards others. He demonstrates no insight into his condition, but available information indicates response to t reatment with antipsychotic medications in the past. -Medically necessary private room due to psychosis, aggressive behavior, and threats to harm others. -We will need to check fasting lipid profile and glucose once he is cooperative. -Excused from groups from the time being until able to participate appropriately. -Refusing to sign releases for parents, but mother is petitioner, so can inform her of the 303 hearing. 12/15 -The patient did except a single dose of lorazepam this morning, and did seem to be somewhat more calm. He was mildly labile during his involuntary commitment hearing this morning, but managed to maintain control and was not aggressive during the hearing or upon learning that he had been retained by the hearing healthcare practitioner. Accordingly, we will continue to offer him lorazepam, since this medication in his case does not seem to be disinhibiting and, at least today, appeared to have helped him manage angry impulses during his involuntary commitment hearing. -The treatment team and I agree that, if possible, we would like to convince the patient to voluntarily take oral medications. Reports are that this morning he came close to taking oral haloperidol, but at the last minute declined. He is telling us that he will consistently refused medications, but our hope is that as we are able to gain his trust he will become more cooperative. We will continue to try to convince the patient to take oral haloperidol, but if this is unsuccessful we will seek two physician approval of medication over objection and give Haldol 5 mg IM BID. 12/16--tolerating Haldol, titrate to 10 mg BID. 12/18 - Continue haldol 10 mg bid - Continue discussion about LAMA - Encourage better sleep hygiene, staying awake in the day to promote sleep at night. 12/19 - Patient allowed labs to be drawn. FBS 93, FLP WNL with the exception of triglycerides of 186. Counseled to avoid fatty red meats, saturated fats. 12/20 -Again discussed the recommendations for long-acting injectable antipsychotic medication with the patient, which he initially declined because he said medications are poison. He has a meeting with his family this afternoon, and I will order the first loading dose of Haldol Decanoate 50 mg IM to be administered this afternoon, and if he is unwilling to take it, we will likely need to proceed with medications over objection tomorrow. We will try to encourage him to accept the intervention, as he reportedly did fairly well on this medication in the past. 12/21 -proceed with medications over objection: Haldol Decanoate 100 mg IM today, and Haldol 10 mg IM for refusal of oral Haldol. He will need 100-200 mg of Haldol Decanoate every 4 weeks based on his current oral dose, so will continue oral haloperidol for now until we can monitor response to the decanoate. 12/22 -the patient received Haldol Decanoate intramuscularly today, as a medication over objection. He tolerated the injection well, and today tells me that he "feels pretty good." -Today, the patient's associations seemed to be fairly tight on examination. He tends to be somewhat concrete in his thinking, but, as above, he did seem able to understand our rationale for continuing inpatient treatment at this point. 12/23 - tolerating halol dec w/o EPS or other complaints. will need to consider reduction of oral dose in approx 1 week. 12/24 - pt remains less acutely behaviorally disturbed since Haldol dec injection last however evidenced mild acting out when physically uncomfortable today - will add standing docusate 100mg po qhs and encourage oral hydration today for complaint of hard stool - meeting / [facility] services tomorrow to explore dispo options 12/25 - Increase in irritability - Planning meeting held with [facility]: possibility for CRR vs state hospital - Continue current meds and encourage prns 12/26 - 304 granted. Meeting with [facility], patient and parents held yesterday: parents confirmed he cannot return home. Treatment team and [facility] recommends state hospitalization, as patient not appropriate for CRR placement due to severity of symptoms and unwillingness for outpatient treatment and medications. 12/27 - Continue current medication regimen - Orders placed for necessary EKG, TB skin test to accompany [facility] referral - Place on high elopement precautions last evening due to suspicious loitering at the entryway of the unit - Reviewed records from [facility] - previous diagnoses were schizoaffective disorder and substance abuse 12/28 - Continue current medication regimen - EKG and PPD completed yesterday - PPD will need read on 12/30 12/29 -Add clozapine 12.5 mg BID and increase as tolerated by 25 mg per day to a dose of 300 mg daily (in two divided dosages, or all at bedtime).' 12/30 -titrating clozapine to 12.5 am and 25mg hs for 12/30 with plan to increase to 25mg bid on 12/31 and likely further titration if tolerating -maintained Haldol decanoate and Haldol po unchanged for now, with consideration of weaning Haldol po dose if clozapine is effective ,, although pt appears to have history of both Haldol forms being rx'd while on past clozapine med trial. Pt has been observed by staff to be improving as obtaining medication of haldol (including the immediate IM doses) 12/31 close monitoring for checking, continue plan above for IM Haldol over objection if checking haldol scheduled doses. Maintain clozapine dosing plan for now with potential re-considering clozapine plan if compklaince issues are occuring. Consider further titration of haldol decanoate as appropaite. 01/01 - Patient refusing Clozaril. Will leave in place, but not force meds over objection for refusal - Increase Haldol to 10 mg AM and 15 mg HS, with meds over objection for refusal - Continue MNPR due to irritability and hx of violence 01/02 -continue oral haloperidol 10 mg every morning and 15 mg at bedtime (moved to later time to try to minimize sedation/spending excessive time in bed during the day), and Haldol decanoate, next injection due 01/19/2019. Continue Lorazepam as needed. -He continues to refuse clozapine. 01/03 - Continue current meds and plan - Continuef MNPR in deference to history of violence toward others. 01/04 - Continue current meds and plan - Meeting scheduled with the [facility] to discuss disposition 01/05 - Change pills to liquid due to cheeking - Encourage patient to be out of bed and participating in his treatment - Planning meeting scheduled with the [facility] for next Tuesday (2) Noncompliance with medications: 12/14 -stopped his medications 6 months ago and has decompensated since. Would benefit from a long-acting injectable, and either long-term inpatient treatment at the [facility] or involuntary outpatient treatment.. 12/15 -The patient's psychosis and severely impaired insight seem to be making him and accessible to reason, regarding the essential importance of psychiatric medications. There is a past history of favorable response to haloperidol as well as to clozapine. It is agreed that the patient would in all likelihood benefit from a long-acting injectable antipsychotic medication, given his history of recurrent medication nonadherence. 12/16--currently taking PO for a few doses, is on extended involuntary commitment and clearly ongoing schizophrenia which will fail to improve for him to be able to provide self-care without ongoing treatments on inpatient unit and medications over objection. Without antipsychotic medication he is at significant risk of /serious disability and a danger to himself/others. Dr. Srinivasan could provide second opinion if he refuses PO med. 12/18- Patient refusing to consider LAMA at this time. Will continue to encourage 12/21 -patient continues to refuse Haldol Decanoate, and is now also refusing oral Haldol. We will proceed with medications over objection, as he has a diagnosis of primary thought disorder, has benefited from Haldol Decanoate in the past, he is actively delusional and is refusing medications due to psychotic thought processes, and is at risk of harm to both himself and others if he remains untreated. He has a significant history of violence tied to his delusions, and it will be important to get his symptoms adequately managed to decrease the risk of violence towards others here in the hospital. 12/22 -medication adherence is most certainly going issue with this patient. We are recommending the continued use of Depo forms of antipsychotic medications, but, in the past, the patient has simply refused to return to the office of the healthcare professional who is administering the sectionas was the case last year when, after doing reasonably well, he stopped going for treatment, and stopped excepting medications. For this reason, we are carefully looking for a supportive living setting for this patient, preferably one that has the resources necessary to assist the resistant, not adherent to patient. 12/24 - remains better compliant with PO meds 12/25 - Takes meds when he thinks he needs them, but voiced some question about taking anything regularly after discharge. 12/29 -the patient refused a dose of haloperidol yesterday and received haloperidol 10 mg intramuscularly over objection from disease no holes were required and the patient was cooperative with the injection closed with disease. Afterwards, he wondered out loud why he had refused the medication, knowing that he would get it "one way or the other." Because the patient seemed to have responded well, in terms of his disorganized thinking, to the intramuscular dose of haloperidol, there has been some discussion in the team regarding the question of "cheeking" his oral medications. However, the explanation may be that haloperidol 10 mg IM is more potent than orally. In any event, today the patient commits to continued adherence with his medications as he acknowledges that he does feel that they have been helpful to him. 12/31 -potential signs of non compliance 12/30 and 12/31, consider further titration of haldol deaconate as appropriate to help ensure as full of dose being obtained as possible. maintained plan of haldol IM injections for non compliance of haldol po doses 01/05 - Switch haldol to liquid due to cheeking. (3) Substance abuse: 12/14 -patient is not forthcoming, but mother reports he has been abusing alcohol, cough syrup, diphenhydramine, and likely other substances. We will monitor for withdrawal symptoms, and as his psychosis improves, will provide psychoeducation about the risks of substance abuse and recommendations for abstinence. -Avoid controlled substances given high risk of abuse/misuse/negative outcomes. 12/15 -It is recognized that the patient has an extensive history of abusing chemical substances, and it is generally agreed that use of controlled substances does pose significant risk of abuse and other negative outcomes in the long-term. However, the patient's irritability and unwillingness to cooperate with essential medications, such as haloperidol, as well as his history of physical aggression towards others, may be mitigated by the temporary use of a benzodiazepine. Today, a single dose of lorazepam seems to have been effective in helping the patient maintain composure during an involuntary commitment hearing that did not go in his favor, and staff have noticed that he has been somewhat more cooperative today, possibly in response to the dose of lorazepam. Accordingly, staff will continue to offer the patient as needed lorazepam. 12/21 -admission drug screen was positive for benzodiazepines, with significantly elevated temazepam (> 2000) and elevated oxazepam levels. Although he denied taking benzodiazepines prior to admission, he clearly was accessing them somehow. 12/22 -the patient is able to give what may be referred to as "lip service" to the concept of abstinence from drugs of abuse, but he seems to have little or no insight into the risks associated with his abuse of mood altering chemical substances, particularly within the context of his psychiatric illness. Again, a whole will be to identify an aftercare placement that we will be able to monitor him more assiduously for access to abusable chemical substances, including prescription medications, alcohol, and other drugs of abuse. (4) Antisocial personality disorder: 12/14 -extensive, lifelong history provided by adoptive mother which reveals a pervasive pattern of disregard for and violation of the rights of others which started at age 8 or earlier, failure to conform to social norms with respect to lawful behaviors as indicated by repeatedly performing acts that are grounds for arrest, deceitfulness, impulsivity and failure to plan ahead, irritability and aggressiveness, reckless disregard for safety of self and others, consistent irresponsibility, and lack of remorse. 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 -Reviewed expectations with respect to behavior on the unit. 12/15 -The patient's history of antisocial behavior is noted, and antisocial personality will not be a focus of treatment during this hospitalization. However, the record indicates that the patient's antisocial behaviors, which are lifelong, are mitigated to some extent when he is being successfully treated for his psychotic disorder. Accordingly, the approach will be to address his antisocial behaviors by focusing on addressing his psychosis. 12/22 -The patient's long-standing history of antisocial behaviorbehavior which reportedly predates the onset of his symptoms of schizophreniahave not been a focus of treatment and are unlikely to change. Careful monitoring, diversion, containment to the degree possible, to containment of the most appropriate interventions for this problem. Inventory Assets Strengths: Good physical health. Able to form alliances with certain peers. Concerned and supportive parents. Needs: Continued adherence with psychiatric medications. Sustained recovery from psychotic features. Risk Factors Assessment Male: Yes : Yes Do You Have Access To A Gun?: No Health Problems: Yes Mental Health Diagnoses: Yes Substance Use Disorders: Yes Previous Attempt: No Previous Psychiatric Hospitalization: Yes Hopelessness: No Smoker: Yes Protective Factors Assessment Shinto Beliefs: No : No Responsible for Young Children: No Employed: No Stable Relationships: No Supportive Family: Yes Good Rapport with Provider: No Absence of Any Risk Factors Above: No Interval History Identifying Information APRIL GONZALEZ is a 43-year-old M who lives in [place] with his parents, has a history of a psychotic disorder (specific diagnosis not yet known, but history of multiple previous hospitalizations including a 1 year state hospitalization in [place]), and was admitted on 12/14/18 03:41 on a 302 involuntary commitment for psychosis, treatment noncompliance, and erratic, unsafe behavior. He is on a 304 involuntary commitment as of 12/26/2018. Chief Complaint "I don't want to take the meds. ". Review of Systems Sleep Information Total Hours of Sleep: 7.5 Sleep Comments: vistaril 50 mg x 1. Meal Information Percent Meal Consumed - Breakfast: 100 Percent Meal Consumed - Lunch: 100 Percent Meal Consumed - Dinner: 100 Nutrition Comment: pt. sleeping Subjective Subjective Patient was seen & assessed and interval progress reviewed with Treatment Team. Nursing reports that the patient was caught skillfully cheeking his meds this AM even after mouth checks. He admits that he has been "spitting a few of them out". He says that he doesn't want to take meds, even haldol because they "make me fat" and says that he doesn't feel well on them ("irritable, anxious, unwell"). I encouraged him to get up and walk for exercise to try to prevent the weight gain, but he resists saying that it never works, that he has been fat all of his life. I encourage him to get up and take a shower, but he refuses saying "I'm just going to sleep." He has not been attending groups regularly despite saying that he will. I remind him that a meeting has been scheduled for next Tuesday to continue planning for his future treatment, but he only responds that he doesn't want to take meds and contends he doesn't have a mental illness. "At one point I was diagnoses with depression and bipolar." but doesn't think he has any problems now. He denies aud/vis 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 but says "The TV, its giving messages.". He denies thought broadcasting or thought insertion. Physical Exam Psychiatric Orientation: + guarded; + uncooperative Apperance: + disheveled Eye Contact: + fair eye contact Motor Behavior: no abnormal motor movements Speech: normal rate/rhythm/volume of speech Affect: + flat affect Mood: + irritable mood; no depressed mood and no anxious mood Thought Process: goal directed thought process Thought Content: + cognitive distortions and + delusions (ideas of reference from the TV) Suicidal Thoughts: denies suicidal thoughts Homicidal Thoughts: denies homicidal thoughts Hallucinations: no auditory 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 and no visual 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 Cognition: recent memory grossly intact, remote memory grossly intact, attention grossly intact and language grossly intact Estimated Intelligence: consistent with education level Insight: + severely impaired insight Judgement: + severely impaired judgement Vital Signs (Past 24 Hours) Last Vital Signs Temp 36.4 C L 01/05/19 06:55 Pulse 111 H 01/05/19 06:56 Resp 20 01/05/19 06:55 BP 109/68 01/05/19 06:56 Pulse Ox 97 12/14/18 03:38 Results & Data Laboratory Results Laboratory Results - last 24 hr 01/05/19 07:12 WBC 5.81 RBC 4.98 Hgb 15.5 Hct 44.6 MCV 89.6 MCH 31.1 MCHC 34.8 RDW Std Deviation 43.2 RDW Coeff of Rubens 13.3 Plt Count 248 MPV 9.9 Immature Gran % (Auto) 0.3 Neut % (Auto) 45.7 Lymph % (Auto) 42.9 Towner % (Auto) 6.2 Eos % (Auto) 4.6 Baso % (Auto) 0.3 Immature Gran # (Auto) 0.02 Neut # (Auto) 2.65 Lymph # (Auto) 2.49 Towner # (Auto) 0.36 Eos # (Auto) 0.27 Baso # (Auto) 0.02 Current Inpatient Medications Current Inpatient Medications: Current Inpatient Medications Acetaminophen (Tylenol) 650 mg PO Q4H PRN PRN Reason: Headache or Minor Fever Stop: 01/13/19 02:51 Last Admin: 01/04/19 21:52 Dose: 650 mg Documented by: Al Hydrox/Mg Hydrox/Simethicone (Maalox) 30 ml PO Q4H PRN PRN Reason: GI Upset Stop: 01/13/19 02:51 Benztropine Mesylate (Cogentin) 1 mg PO BID PRN PRN Reason: akathisia Stop: 01/26/19 20:59 Last Admin: 01/02/19 15:11 Dose: 1 mg Documented by: Bismuth Subsalicylate (Kaopectate) 15 ml PO PRN PRN PRN Reason: Loose Stool Stop: 01/13/19 02:51 Clozapine (Clozaril) 25 mg PO BID KELLY Stop: 01/29/19 20:59 Last Admin: 01/05/19 07:58 Dose: Not Given Documented by: Docusate Sodium (Colace) 100 mg PO HS PRN PRN Reason: constipation Stop: 01/23/19 21:59 Haloperidol (Haldol) 10 mg PO Q4 PRN PRN Reason: psychosis or agitation Stop: 01/13/19 03:55 Last Admin: 01/03/19 15:33 Dose: 10 mg Documented by: Haloperidol Lactate (Haldol) 10 mg IM Q4 PRN PRN Reason: psychosis or agitation Stop: 01/13/19 03:55 Last Admin: 12/28/18 16:54 Dose: 10 mg Documented by: Haloperidol Lactate (Haldol) 10 mg IM 0900,1600 PRN PRN Reason: refusal of PO Stop: 01/20/19 09:56 Last Admin: 01/05/19 09:24 Dose: 10 mg Documented by: Haloperidol Lactate (Haldol Lactate) 15 mg PO HS KELLY Stop: 02/04/19 21:59 Haloperidol Lactate (Haldol Lactate) 10 mg PO QAM [facility] Stop: 02/05/19 08:59 Hydroxyzine HCl (Vistaril) 25 mg PO Q4H PRN PRN Reason: Anxiety Stop: 01/13/19 02:51 Last Admin: 01/04/19 17:46 Dose: 25 mg Documented by: Hydroxyzine HCl (Vistaril) 50 mg PO HSZ PRN PRN Reason: Insomnia Stop: 01/13/19 02:51 Last Admin: 01/04/19 21:54 Dose: 50 mg Documented by: Lorazepam (Ativan) 1 mg PO Q4 PRN PRN Reason: Agitation Stop: 01/13/19 03:52 Last Admin: 01/05/19 07:57 Dose: 1 mg Documented by: Lorazepam (Ativan) 1 mg IM Q4 PRN PRN Reason: Agitation Stop: 01/13/19 03:54 Magnesium Hydroxide (Milk Of Magnesia) 30 ml PO DAILY PRN PRN Reason: Heartburn Stop: 01/13/19 02:51 Menthol (Nice) 1 be BUCCAL Q2H PRN PRN Reason: Sore Throat Stop: 01/19/19 20:40 Last Admin: 12/20/18 20:52 Dose: 1 be Documented by: Miscellaneous (Remove Nicoderm Patch) 1 ea N/A DAILY@2100 [facility] Stop: 01/13/19 20:59 Last Admin: 01/04/19 19:25 Dose: 1 ea Documented by: Nicotine (Nicoderm Cq) 21 mg TD QAM [facility] Stop: 01/13/19 08:59 Last Admin: 01/05/19 07:58 Dose: 21 mg Documented by: Nicotine Polacrilex (Nicorette 2mg) 1 piece MT UD PRN PRN Reason: Nicotine Withdrawal Stop: 01/13/19 08:20 Last Admin: 01/04/19 19:26 Dose: 1 piece Documented by: Sodium Chloride (Munson Nasal) 1 - 2 sprays NA PRN PRN PRN Reason: Nasal Dryness/Congestion Stop: 01/13/19 02:51 Post Discharge Appointments Primary Care Physician Name Of Family Doctor: Denies Therapist Name of Therapist: Denies Combat Engineer Name of Combat Engineer: [employer] Phone Number for Combat Engineer: [phone] Case Management Appointment Comment: [address], [address], [place], [place] CPT Code CPT Code 69027
[2019-01-05] MEDS: ACETAMINOPHEN 325 MG TAB PO PRN (17:26)
[2019-01-05] MEDS ORDERED: HALOPERIDOL ORAL SOLN 2 MG/ML PO SCH (22:00)
[2019-01-06] MEDS ORDERED: HALOPERIDOL ORAL SOLN 2 MG/ML PO PRN (08:51)
[2019-01-06] MEDS ORDERED: HALOPERIDOL 5 MG TAB PO SCH (09:00)
--- NOTE | 2019-01-06 09:10 | Psychiatric Progress Note ---
Date of Service January 06, 2019 Impression / Recommendations Impression Despite mouth checks, the patient has been cheeking Haldol, which she admitted to yesterday after being caught and receiving an IM of Haldol. He was switched from pills to liquid for improved compliance, and today agrees to receive Haldol Decanoate, with a plan to taper him off oral Haldol given his extremely poor compliance. We should continue to encourage participation in groups and exercise, but he has had limited participation, continues to demonstrate lack of insight, and his behaviors are not a good indication that he would be appropriate for or able to tolerate a lesser restrictive environment like the CRR. Our recommendation remains that he should go to the [facility] and we will discuss this further at the planning meeting scheduled for next Tuesday, as we do not yet have a bed date. Although he has not been acutely agitated recently, he freely states he would not be compliant with medication or treatment outside of the hospital, which would be highly likely to precipitate acute psychiatric decompensation and increase in erratic and aggressive behavior. (1) Thought disorder: 12/14 -patient is a poor historian, but mother provides historical information. 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 For now we will collect psychosis not otherwise specified. -Patient is refusing to sign releases for previous outpatient providers in [place], and staff contacted them but they refused to provide any information without a signed release. -Medically necessary private room due to psychosis, erratic and disorganized behavior, history of violence, and aggressive behavior and threats to harm others here in the hospital. -Start haloperidol 5 mg twice daily, as patient has a previous good response to Haldol Decanoate and clozapine. Recommend medications over objection once he is on a 303 involuntary commitment and has been seen by a second physician, as he has severe psychotic symptoms which are preventing him from accurately interpreting reality, influencing his behavior, and placing him at risk of harm to both himself and others as he has been acting on his delusions, experiencing auditory and visual 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, paranoia, engaging in unsafe behaviors including driving when he does not have a license or the knowledge to do so, abusing substances, and has been threatening towards others. He demonstrates no insight into his condition, but available information indicates response to treatment with antipsychotic medications in the past. -Medically necessary private room due to psychosis, aggressive behavior, and threats to harm others. -We will need to check fasting lipid profile and glucose once he is cooperative. -Excused from groups from the time being until able to participate appropriately. -Refusing to sign releases for parents, but mother is petitioner, so can inform her of the 303 hearing. 12/15 -The patient did except a single dose of lorazepam this morning, and did seem to be somewhat more calm. He was mildly labile during his involuntary commitment hearing this morning, but managed to maintain control and was not aggressive during the hearing or upon learning that he had been retained by the hearing specialist. Accordingly, we will continue to offer him lorazepam, since this medication in his case does not seem to be disinhibiting and, at least today, appeared to have helped him manage angry impulses during his involuntary commitment hearing. -The treatment team and I agree that, if possible, we would like to convince the patient to voluntarily take oral medications. Reports are that this morning he came close to taking oral haloperidol, but at the last minute declined. He is telling us that he will consistently refused medications, but our hope is that as we are able to gain his trust he will become more cooperative. We will continue to try to convince the patient to take oral haloperidol, but if this is unsuccessful we will seek two physician approval of medication over objection and give Haldol 5 mg IM BID. 12/16--tolerating Haldol, titrate to 10 mg BID. 12/18 - Continue haldol 10 mg bid - Continue discussion about LAMA - Encourage better sleep hygiene, staying awake in the day to promote sleep at night. 12/19 - Patient allowed labs to be drawn. FBS 93, FLP WNL with the exception of triglycerides of 186. Counseled to avoid fatty red meats, saturated fats. 12/20 -Again discussed the recommendations for long-acting injectable antipsychotic medication with the patient, which he initially declined because he said medications are poison. He has a meeting with his family this afternoon, and I will order the first loading dose of Haldol Decanoate 50 mg IM to be administered this afternoon, and if he is unwilling to take it, we will likely need to proceed with medications over objection tomorrow. We will try to encourage him to accept the intervention, as he reportedly did fairly well on this medication in the past. 12/21 -proceed with medications over objection: Haldol Decanoate 100 mg IM today, and Haldol 10 mg IM for refusal of oral Haldol. He will need 100-200 mg of Haldol Decanoate every 4 weeks based on his current oral dose, so will continue oral haloperidol for now until we can monitor response to the decanoate. 12/22 -the patient received Haldol Decanoate intramuscularly today, as a medication over objection. He tolerated the injection well, and today tells me that he "feels pretty good." -Today, the patient's associations seemed to be fairly tight on examination. He tends to be somewhat concrete in his thinking, but, as above, he did seem able to understand our rationale for continuing inpatient treatment at this point. 12/23 - tolerating halol dec w/o EPS or other complaints. will need to consider reduction of oral dose in approx 1 week. 12/24 - pt remains less acutely behaviorally disturbed since Haldol dec injection last however evidenced mild acting out when physically uncomfortable today - will add standing docusate 100mg po qhs and encourage oral hydration today for complaint of hard stool - meeting / [facility] services tomorrow to explore dispo options 12/25 - Increase in irritability - Planning meeting held with [facility]: possibility for CRR vs state hospital - Continue current meds and encourage prns 12/26 - 304 granted. Meeting with [facility], patient and parents held yesterday: parents confirmed he cannot return home. Treatment team and [facility] recommends state hospitalization, as patient not appropriate for CRR placement due to severity of symptoms and unwillingness for outpatient treatment and medications. 12/27 - Continue current medication regimen - Orders placed for necessary EKG, TB skin test to accompany [facility] referral - Place on high elopement precautions last evening due to suspicious loitering at the entryway of the unit - Reviewed records from [place] [facility] - previous diagnoses were schizoaffective disorder and substance abuse 12/28 - Continue current medication regimen - EKG and PPD completed yesterday - PPD will need read on 12/30 12/29 -Add clozapine 12.5 mg BID and increase as tolerated by 25 mg per day to a dose of 300 mg daily (in two divided dosages, or all at bedtime).' 12/30 -titrating clozapine to 12.5 am and 25mg hs for 12/30 with plan to increase to 25mg bid on 12/31 and likely further titration if tolerating -maintained Haldol decanoate and Haldol po unchanged for now, with consideration of weaning Haldol po dose if clozapine is effective ,, although pt appears to have history of both Haldol forms being rx'd while on past clozapine med trial. Pt has been observed by staff to be improving as obtaining medication of haldol (including the immediate IM doses) 12/31 close monitoring for checking, continue plan above for IM Haldol over objection if checking haldol scheduled doses. Maintain clozapine dosing plan for now with potential re-considering clozapine plan if compklaince issues are occuring. Consider further titration of haldol decanoate as appropaite. 01/01 - Patient refusing Clozaril. Will leave in place, but not force meds over objection for refusal - Increase Haldol to 10 mg AM and 15 mg HS, with meds over objection for refusal - Continue MNPR due to irritability and hx of violence 01/02 -continue oral haloperidol 10 mg every morning and 15 mg at bedtime (moved to later time to try to minimize sedation/spending excessive time in bed during the day), and Haldol decanoate, next injection due 01/19/2019. Continue L orazepam as needed. -He continues to refuse clozapine. 01/03 - Continue current meds and plan - Continue MNPR in deference to history of violence toward others. 01/04 - Continue current meds and plan - Meeting scheduled with the [facility] to discuss disposition 01/05 - Change pills to liquid due to cheeking - Encourage patient to be out of bed and participating in his treatment - Planning meeting scheduled with the [facility] for next Saturday 01/06 -Patient agrees to a second Haldol Decanoate injection, 100 mg, with the hopes that we can taper him off oral haloperidol given his poor compliance. He has been on 25 mg p.o. daily, which is the equivalent of an initial dose of 500 mg decanoate (per UpToDate, dose of oral haloperidol > 10 mg and high risk of relapse, initiate dose at 20 times the daily oral dose). He got his initial Haldol Decanoate 100 mg on 12/22/2018. He will be due for his next injection on 01/19/2019, currently ordered for 200 mg, but may need to consider a higher dose given noncompliance with oral medication. Maintenance doses are typically 50- 200 mg. Will continue oral haloperidol liquid 10 mg every morning, but discontinue the 15 mg at bedtime dose. Oral haloperidol can be tapered over the period of the first 3 decanoate shots (60-90 days) depending on response. -Continue clozapine but decrease to 25 mg daily, as he has not been taking it, and continue to encourage him to try it, as it was reportedly beneficial in the past and stabilized him sufficiently to be discharged from the [facility]. -Continue as needed medications (Lorazepam, benztropine, haloperidol, and hydroxyzine). (2) Noncompliance with medications: 12/14 -stopped his medications 6 months ago and has decompensated since. Would benefit from a long-acting injectable, and either long-term inpatient treatment at the [facility] or involuntary outpatient treatment.. 12/15 -The patient's psychosis and severely impaired insight seem to be making him and accessible to reason, regarding the essential importance of psychiatric medications. There is a past history of favorable response to haloperidol as well as to clozapine. It is agreed that the patient would in all likelihood benefit from a long-acting injectable antipsychotic medication, given his history of recurrent medication nonadherence. 12/16--currently taking PO for a few doses, is on extended involuntary commitment and clearly ongoing schizophrenia which will fail to improve for him to be able to provide self-care without ongoing treatments on inpatient unit and medica tions over objection. Without antipsychotic medication he is at significant risk of /serious disability and a danger to himself/others. Dr. Srinivasan could provide second opinion if he refuses PO med. 12/18- Patient refusing to consider LAMA at this time. Will continue to encourage 12/21 -patient continues to refuse Haldol Decanoate, and is now also refusing oral Haldol. We will proceed with medications over objection, as he has a diagnosis of primary thought disorder, has benefited from Haldol Decanoate in the past, he is actively delusional and is refusing medications due to psychotic thought processes, and is at risk of harm to both himself and others if he remains untreated. He has a significant history of violence tied to his delusions, and it will be important to get his symptoms adequately managed to decrease the risk of violence towards others here in the hospital. 12/22 -medication adherence is most certainly going issue with this patient. We are recommending the continued use of Depo forms of antipsychotic medications, but, in the past, the patient has simply refused to return to the office of the healthcare professional who is administering the sectionas was the case last year when, after doing reasonably well, he stopped going for treatment, and stopped excepting medications. For this reason, we are carefully looking for a supportive living setting for this patient, preferably one that has the resources necessary to assist the resistant, not adherent to patient. 12/24 - remains better compliant with PO meds 12/25 - Takes meds when he thinks he needs them, but voiced some question about taking anything regularly after discharge. 12/29 -the patient refused a dose of haloperidol yesterday and received haloperidol 10 mg intramuscularly over objection from disease no holes were required and the patient was cooperative with the injection closed with disease. Afterwards, he wondered out loud why he had refused the medication, knowing that he would get it "one way or the other." Because the patient seemed to have responded well, in terms of his disorganized thinking, to the intramuscular dose of haloperidol, there has been some discussion in the team regarding the question of "cheeking" his oral medications. However, the explanation may be that haloperidol 10 mg IM is more potent than orally. In any event, today the patient commits to continued adherence with his medications as he acknowledges that he does feel that they have been helpful to him. 12/31 -potential signs of non compliance 12/30 and 12/31, consider further titration of haldol deaconate as appropriate to help ensure as full of dose being obtained as possible. maintained plan of haldol IM injections for non compliance of haldol po doses 01/05- Switch haldol to liquid due to cheeking. 01/06 -second dose of Haldol Decanoate as above. Will taper off of oral Haldol over the next 30-60 days, and ideally maintain him on injectable medication given his history of cheeking and noncompliance with oral medication. He continues to refuse clozapine, could consider the addition of an injectable atypical antipsychotic if Haldol Decanoate is insufficient to control symptoms. (3) Substance abuse: 12/14 -patient is not forthcoming, but mother reports he has been abusing alcohol, cough syrup, diphenhydramine, and likely other substances. We will monitor for withdrawal symptoms, and as his psychosis improves, will provide psychoeducation about the risks of substance abuse and recommendations for abstinence. -Avoid controlled substances given high risk of abuse/misuse/negative outcomes. 12/15 -It is recognized that the patient has an extensive history of abusing chemical substances, and it is generally agreed that use of controlled substances does pose significant risk of abuse and other negative outcomes in the long-term. However, the patient's irritability and unwillingness to cooperate with essential medications, such as haloperidol, as well as his history of physical aggression towards others, may be mitigated by the temporary use of a benzodiazepine. Today, a single dose of lorazepam seems to have been effective in helping the patient maintain composure during an involuntary commitment hearing that did not go in his favor, and staff have noticed that he has been somewhat more cooperative today, possibly in response to the dose of lorazepam. Accordingly, staff will continue to offer the patient as needed lorazepam. 12/21 -admission drug screen was positive for benzodiazepines, with significantly elevated temazepam (> 2000) and elevated oxazepam levels. Although he denied taking benzodiazepines prior to admission, he clearly was accessing them somehow. 12/22 -the patient is able to give what may be referred to as "lip service" to the concept of abstinence from drugs of abuse, but he seems to have little or no insight into the risks associated with his abuse of mood altering chemical substances, particularly within the context of his psychiatric illness. Again, a whole will be to identify an aftercare placement that we will be able to monitor him more assiduously for access to abusable chemical substances, including prescription medications, alcohol, and other drugs of abuse. (4) Antisocial personality disorder: 12/14 -extensive, lifelong history provided by adoptive mother which reveals a pervasive pattern of disregard for and violation of the rights of others which started at age 8 or earlier, failure to conform to social norms with respect to lawful behaviors as indicated by repeatedly performing acts that are grounds for arrest, deceitfulness, impulsivity and failure to plan ahead, irritability and aggressiveness, reckless disregard for safety of self and others, consistent irresponsibility, and lack of remorse. 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 -Reviewed expectations with respect to behavior on the unit. 12/15 -The patient's history of antisocial behavior is noted, and antisocial personality will not be a focus of treatment during this hospitalization. However, the record indicates that the patient's antisocial behaviors, which are lifelong, are mitigated to some extent when he is being successfully treated for his psychotic disorder. Accordingly, the approach will be to address his antisocial behaviors by focusing on addressing his psychosis. 12/22 -The patient's long-standing history of antisocial behaviorbehavior which reportedly predates the onset of his symptoms of schizophreniahave not been a focus of treatment and are unlikely to change. Careful monitoring, diversion, containment to the degree possible, to containment of the most appropriate interventions for this problem. Inventory Assets Strengths: Good physical health. Able to form alliances with certain peers. Concerned and supportive parents. Needs: Continued adherence with psychiatric medications. Sustained recovery from psychotic features. Risk Factors Assessment Male: Yes : Yes Do You Have Access To A Gun?: No Health Problems: Yes Mental Health Diagnoses: Yes Substance Use Disorders: Yes Previous Attempt: No Previous Psychiatric Hospitalization: Yes Hopelessness: No Smoker: Yes Protective Factors Assessment Evangelical Beliefs: No : No Responsible for Young Children: No Employed: No Stable Relationships: No Supportive Family: Yes Good Rapport with Provider: No Absence of Any Risk Factors Above: No Interval History Identifying Information APRIL GONZALEZ is a 43-year-old M who lives in [place] with his parents, has a history of a psychotic disorder (specific diagnosis not yet known, but history of multiple previous hospitalizations including a 1 year state hospitalization in [place]), and was admitted on 12/14/18 03:41 on a 302 involuntary commitment for psychosis, treatment noncompliance, and erratic, unsafe behavior. He is on a 304 involuntary commitment as of 12/26/2018. Chief Complaint "Okay". Review of Systems Notes Denies EPS, dystonia, involuntary movements. Sleep Information Total Hours of Sleep: 7 Sleep Comments: pt appeared to sleep 1.75 hrs during evening shift. pt on q-15 minute checks Meal Information Percent Meal Consumed - Breakfast: 100 Percent Meal Consumed - Lunch: 100 Percent Meal Consumed - Dinner: 100 Nutrition Comment: pt. sleeping Subjective Subjective Patient was seen & assessed and interval progress reviewed with nursing and social work. Staff report he requested and received Lorazepam as needed yesterday, and was caught cheeking his Haldol, spitting in a cup, and attempting to dispose of it. He admitted he had been cheeking his medication, received a Haldol injection, and is scheduled dose was switched to Haldol liquid. He continues to refuse clozapine. He continues to demonstrate very poor insight, and in groups that he would no longer be going to the [facility], and would be going home with his family after his meeting with the [facility] next week, although that has never been discussed and is not an option, and the recommendation is still for long-term treatment at the [facility]. On my assessment, he reports mood is "good," denies 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, denies need for mental health treatment, and feels he can be discharged to live independently, although has no place to live and no plan for outpatient care or getting medication. He denies thoughts of harming himself or others, and is willing to participate in his meeting with the [facility] next week. Physical Exam Psychiatric Orientation: alert Apperance: appropriately dressed and appropriately groomed; + did not appear stated age Eye Contact: good eye contact Motor Behavior: steady gait and station and no abnormal motor movements Speech: normal rate/rhythm/volume of speech Minimal, nonspontaneous Affect: + blunted affect "Okay." Thought Process: goal directed thought process and + concrete thought process Thought Content: + delusions (That he is not mentally ill, but has a congenital bone disease) Suicidal Thoughts: denies suicidal thoughts Homicidal Thoughts: denies homicidal thoughts Hallucinations: no auditory 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 Cognition: attention grossly intact and language grossly intact; + recent memory not intact (Does not seem to recall conversations about treatment recommendations and housing options) Insight: + severely impaired insight Judgement: + severely impaired judgement Vital Signs (Past 24 Hours) Last Vital Signs Temp 36.4 C L 01/05/19 06:55 Pulse 111 H 01/05/19 06:56 Resp 20 01/05/19 06:55 BP 109/68 01/05/19 06:56 Pulse Ox 97 12/14/18 03:38 Results & Data Current Inpatient Medications Current Inpatient Medications: Current Inpatient Medications Acetaminophen (Tylenol) 650 mg PO Q4H PRN PRN Reason: Headache or Minor Fever Stop: 01/13/19 02:51 Last Admin: 01/05/19 17:26 Dose: 650 mg Documented by: Al Hydrox/Mg Hydrox/Simethicone (Maalox) 30 ml PO Q4H PRN PRN Reason: GI Upset Stop: 01/13/19 02:51 Benztropine Mesylate (Cogentin) 1 mg PO BID PRN PRN Reason: akathisia Stop: 01/26/19 20:59 Last Admin: 01/02/19 15:11 Dose: 1 mg Documented by: Bismuth Subsalicylate (Kaopectate) 15 ml PO PRN PRN PRN Reason: Loose Stool Stop: 01/13/19 02:51 Clozapine (Clozaril) 25 mg PO BID [facility] Stop: 01/29/19 20:59 Last Admin: 01/05/19 21:52 Dose: Not Given Documented by: Docusate Sodium (Colace) 100 mg PO HS PRN PRN Reason: constipation Stop: 01/23/19 21:59 Haloperidol Lactate (Haldol) 10 mg IM Q4 PRN PRN Reason: psychosis or agitation Stop: 01/13/19 03:55 Last Admin: 12/28/18 16:54 Dose: 10 mg Documented by: Haloperidol Lactate (Haldol) 10 mg IM 0900,1600 PRN PRN Reason: refusal of PO Stop: 01/20/19 09:56 Last Admin: 01/05/19 09:24 Dose: 10 mg Documented by: Haloperidol Lactate (Haldol Lactate) 15 mg PO HS [facility] Stop: 02/04/19 21:59 Last Admin: 01/05/19 21:49 Dose: 15 mg Documented by: Haloperidol Lactate (Haldol Lactate) 10 mg PO QAM [facility] Stop: 02/05/19 08:59 Haloperidol Lactate (Haldol Lactate) 10 mg PO Q4H PRN PRN Reason: Psychosis or agitation Stop: 02/05/19 08:50 Hydroxyzine HCl (Vistaril) 25 mg PO Q4H PRN PRN Reason: Anxiety Stop: 01/13/19 02:51 Last Admin: 01/05/19 16:51 Dose: 25 mg Documented by: Hydroxyzine HCl (Vistaril) 50 mg PO HSZ PRN PRN Reason: Insomnia Stop: 01/13/19 02:51 Last Admin: 01/04/19 21:54 Dose: 50 mg Documented by: Lorazepam (Ativan) 1 mg PO Q4 PRN PRN Reason: Agitation Stop: 01/13/19 03:52 Last Admin: 01/05/19 17:59 Dose: 1 mg Documented by: Lorazepam (Ativan) 1 mg IM Q4 PRN PRN Reason: Agitation Stop: 01/13/19 03:54 Magnesium Hydroxide (Milk Of Magnesia) 30 ml PO DAILY PRN PRN Reason: Heartburn Stop: 01/13/19 02:51 Menthol (Nice) 1 be BUCCAL Q2H PRN PRN Reason: Sore Throat Stop: 01/19/19 20:40 Last Admin: 12/20/18 20:52 Dose: 1 be Documented by: Miscellaneous (Remove Nicoderm Patch) 1 ea N/A DAILY@2100 KELLY Stop: 01/13/19 20:59 Last Admin: 01/05/19 21:52 Dose: Not Given Documented by: Nicotine (Nicoderm Cq) 21 mg TD QAM KELLY Stop: 01/13/19 08:59 Last Admin: 01/05/19 07:58 Dose: 21 mg Documented by: Nicotine Polacrilex (Nicorette 2mg) 1 piece MT UD PRN PRN Reason: Nicotine Withdrawal Stop: 01/13/19 08:20 Last Admin: 01/04/19 19:26 Dose: 1 piece Documented by: Sodium Chloride ([place] Nasal) 1 - 2 sprays NA PRN PRN PRN Reason: Nasal Dryness/Congestion Stop: 01/13/19 02:51 Post Discharge Appointments Primary Care Physician Name Of Family Doctor: Denies Therapist Name of Therapist: Denies [employer] Name of [employer]: [employer] Phone Number for [employer]: [phone] Case Management Appointment Comment: [address], [address], [place], [place] CPT Code CPT Code 34533
[2019-01-06] MEDS: HALOPERIDOL ORAL SOLN 2 MG/ML PO SCH (09:21)
[2019-01-06] MEDS: cloZAPine 25 MG TAB PO SCH (09:21)
[2019-01-06] MEDS: NICOTINE 21 MG/24 HR TDSY TD SCH (09:22)
[2019-01-06] MEDS ORDERED: HALOPERIDOL DECANOATE INJ 50 MG/ML VIAL IM ONE (09:48)
[2019-01-06] MEDS: LORazepam 1 MG TAB PO PRN ×3 (10:00→18:17)
[2019-01-06] MEDS: ACETAMINOPHEN 325 MG TAB PO PRN ×3 (10:00→18:19)
[2019-01-06] MEDS: NICOTINE POLACRILEX 2 MG GUM MT PRN (17:22)
[2019-01-06] MEDS: BENZTROPINE MESYLATE 1 MG TAB PO PRN (20:14)
[2019-01-07] MEDS: NICOTINE 21 MG/24 HR TDSY TD SCH (08:32)
[2019-01-07] MEDS: HALOPERIDOL ORAL SOLN 2 MG/ML PO SCH (08:33)
[2019-01-07] MEDS: cloZAPine 25 MG TAB PO SCH (08:34)
--- NOTE | 2019-01-07 08:50 | Psychiatric Progress Note ---
Date of Service January 07, 2019 Impression / Recommendations Impression Despite mouth checks, the patient has been cheeking Haldol, so has been switched from pills to liquid for improved compliance, and 01/06/2019 received a second 100 mg loading dose of Haldol Decanoate. Although staff are encouraging participation in groups and exercise, he has had limited participation, and continues to demonstrate a complete lack of insight. Unfortunately his behavior indicates that he would not be appropriate for or able to tolerate a lesser restrictive environment like the CRR. Our recommendation remains that he should go to the [facility] and we will discuss this further at the planning meeting scheduled for next Tuesday, as we do not yet have a bed date. Although he has not been acutely agitated recently, he freely states he would not be compliant with medication or treatment outside of the hospital, which would be highly likely to precipitate acute psychiatric decompensation and increase in erratic and aggressive behavior. (1) Schizophrenia: 12/14 -patient is a poor historian, but mother provides historical information. 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 For now we will collect psychosis not otherwise specified. -Patient is refusing to sign releases for previous outpatient providers in [place], and staff contacted them but they refused to provide any information without a signed release. -Medically necessary private room due to psychosis, erratic and disorganized behavior, history of violence, and aggressive behavior and threats to harm others here in the hospital. -Start haloperidol 5 mg twice daily, as patient has a previous good response to Haldol Decanoate and clozapine. Recommend medications over objection once he is on a 303 involuntary commitment and has been seen by a second physician, as he has severe psychotic symptoms which are preventing him from accurately interpreting reality, influencing his behavior, and placing him at risk of harm to both himself and others as he has been acting on his delusions, experiencing auditory and visual 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, paranoia, engaging in unsafe behaviors including driving when he does not have a license or the knowledge to do so, abusing substances, and has been threatening towards others. He demonstrates no insight into his condition, but available information indicates response to treatment with antipsychotic medications in the past. -Medically necessary private room due to psychosis, aggressive behavior, and threats to harm others. -We will need to check fasting lipid profile and glucose once he is cooperative. -Excused from groups from the time being until able to participate appropriately. -Refusing to sign releases for parents, but mother is petitioner, so can inform her of the 303 hearing. 12/15 -The patient did except a single dose of lorazepam this morning, and did seem to be somewhat more calm. He was mildly labile during his involuntary commitment hearing this morning, but managed to maintain control and was not aggressive during the hearing or upon learning that he had been retained by the health technician hearing. Accordingly, we will continue to offer him lorazepam, since this medication in his case does not seem to be disinhibiting and, at least today, appeared to have helped him manage angry impulses during his involuntary commitment hearing. -The treatment team and I agree that, if possible, we would like to convince the patient to voluntarily take oral medications. Reports are that this morning he came close to taking oral haloperidol, but at the last minute declined. He is telling us that he will consistently refused medications, but our hope is that as we are able to gain his trust he will become more cooperative. We will continue to try to convince the patient to take oral haloperidol, but if this is unsuccessful we will seek two physician approval of medication over objection and give Haldol 5 mg IM BID. 12/16--tolerating Haldol, titrate to 10 mg BID. 12/18 - Continue haldol 10 mg bid - Continue discussion about LAMA - Encourage better sleep hygiene, staying awake in the day to promote sleep at night. 12/19 - Patient allowed labs to be drawn. FBS 93, FLP WNL with the exception of triglycerides of 186. Counseled to avoid fatty red meats, saturated fats. 12/20 -Again discussed the recommendations for long-acting injectable antipsychotic medication with the patient, which he initially declined because he said medications are poison. He has a meeting with his family this afternoon, and I will order the first loading dose of Haldol Decanoate 50 mg IM to be administered this afternoon, and if he is unwilling to take it, we will likely need to proceed with medications over objection tomorrow. We will try to encourage him to accept the intervention, as he reportedly did fairly well on this medication in the past. 12/21 -proceed with medications over objection: Haldol Decanoate 100 mg IM today, and Haldol 10 mg IM for refusal of oral Haldol. He will need 100-200 mg of Haldol Decanoate every 4 weeks based on his current oral dose, so will continue oral haloperidol for now until we can monitor response to the decanoate. 12/22 -the patient received Haldol Decanoate intramuscularly today, as a medication over objection. He tolerated the injection well, and today tells me that he "feels pretty good." -Today, the patient's associations seemed to be fairly tight on examination. He tends to be somewhat concrete in his thinking, but, as above, he did seem able to understand our rationale for continuing inpatient treatment at this point. 12/23 - tolerating halol dec w/o EPS or other complaints. will need to consider reduction of oral dose in approx 1 week. 12/24 - pt remains less acutely behaviorally disturbed since Haldol dec injection last however evidenced mild acting out when physically uncomfortable today - will add standing docusate 100mg po qhs and encourage oral hydration today for complaint of hard stool - meeting w/ [facility] services tomorrow to explore dispo options 12/25 - Increase in irritability - Planning meeting held with [facility]: possibility for CR[facility] vs state hospital - Continue current meds and encourage prns 12/26 - 304 granted. Meeting with [facility], patient and parents held yesterday: parents confirmed he cannot return home. Treatment team and [facility] recommends state hospitalization, as patient not appropriate for CRR placement due to severity of symptoms and unwillingness for outpatient treatment and medications. 12/27 - Continue current medication regimen - Orders placed for necessary EKG, TB skin test to accompany [facility] referral - Place on high elopement precautions last evening due to suspicious loitering at the entryway of the unit - Reviewed records from [facility] - previous diagnoses were schizoaffective disorder and substance abuse 12/28 - Continue current medication regimen - EKG and PPD completed yesterday - PPD will need read on 12/30 12/29 -Add clozapine 12.5 mg BID and increase as tolerated by 25 mg per day to a dose of 300 mg daily (in two divided dosages, or all at bedtime).' 12/30 -titrating clozapine to 12.5 am and 25mg hs for 12/30 with plan to increase to 25mg bid on 12/31 and likely further titration if tolerating -maintained Haldol decanoate and Haldol po unchanged for now, with consideration of weaning Haldol po dose if clozapine is effective ,, although pt appears to have history of both Haldol forms being rx'd while on past clozapine med trial. Pt has been observed by staff to be improving as obtaining medication of haldol (including the immediate IM doses) 12/31 close monitoring for checking, continue plan above for IM Haldol over objection if checking haldol scheduled doses. Maintain clozapine dosing plan for now with potential re-considering clozapine plan if compklaince issues are occuring. Consider further titration of haldol decanoate as appropaite. 01/01 - Patient refusing Clozaril. Will leave in place, but not force meds over objection for refusal - Increase Haldol to 10 mg AM and 15 mg HS, with meds over objection for refusal - Continue MNPR due to irritability and hx of violence 01/02 -continue oral haloperidol 10 mg every morning and 15 mg at bedtime (moved to later time to try to minimize sedation/spending excessive time in bed during the day), and Haldol decanoate, next injection due 01/19/2019. Continue Lorazepam as needed. -He continues to refuse clozapine. 01/03 - Continue current meds and plan - Continue MNPR in deference to history of violence toward others. 01/04 - Continue current meds and plan - Meeting scheduled with the [facility] to discuss disposition 01/05 - Change pills to liquid due to cheeking - Encourage patient to be out of bed and participating in his treatment - Planning meeting scheduled with the [facility] for next Saturday 01/06 -Patient agrees to a second Haldol Decanoate injection, 100 mg, with the hopes that we can taper him off oral haloperidol given his poor compliance. He has been on 25 mg p.o. daily, which is the equivalent of an initial dose of 500 mg decanoate (per UpToDate, dose of oral haloperidol > 10 mg and high risk of relapse, initiate dose at 20 times the daily oral dose). He got his initial Haldol Decanoate 100 mg on 12/22/2018. He will be due for his next injection on 01/19/2019, currently ordered for 200 mg, but may need to consider a higher dose given noncompliance with oral medication. Maintenance doses are typically 50- 200 mg. Will continue oral haloperidol liquid 10 mg every morning, but discontinue the 15 mg at bedtime dose. Oral haloperidol can be tapered over the period of the first 3 decanoate shots (60-90 days) depending on response. -Continue clozapine but decrease to 25 mg daily, as he has not been taking it, and continue to encourage him to try it, as it was reportedly beneficial in the past and stabilized him sufficiently to be discharged [facility]. -Continue as needed medications (Lorazepam, benztropine, haloperidol, and hydroxyzine). 01/07 -continue current medications and plan. Present on Admission?: Yes (2) Noncompliance with medications: 12/14 -stopped his medications 6 months ago and has decompensated since. Would benefit from a long-acting injectable, and either long-term inpatient treatment at the [facility] or involuntary outpatient treatment.. 12/15 -The patient's psychosis and severely impaired insight seem to be making him and accessible to reason, regarding the essential importance of psychiatric medications. There is a past history of favorable response to haloperidol as well as to clozapine. It is agreed that the patient would in all likelihood benefit from a long-acting injectable antipsychotic medication, given his history of recurrent medication nonadherence. 12/16--currently taking PO for a few doses, is on extended involuntary commitment and clearly ongoing schizophrenia which will fail to improve for him to be able to provide self-care without ongoing treatments on inpatient unit and medications over objection. Without antipsychotic medication he is at significant risk of /serious disability and a danger to himself/others. Dr. Srinivasan could provide second opinion if he refuses PO med. 12/18- Patient refusing to consider LAMA at this time. Will continue to encourage 12/21 -patient continues to refuse Haldol Decanoate, and is now also refusing oral Haldol. We will proceed with medications over objection, as he has a diagnosis of primary thought disorder, has benefited from Haldol Decanoate in the past, he is actively delusional and is refusing medications due to psychotic thought processes, and is at risk of harm to both himself and others if he remains untreated. He has a significant history of violence tied to his delusions, and it will be important to get his symptoms adequately managed to decrease the risk of violence towards others here in the hospital. 12/22 -medication adherence is most certainly going issue with this patient. We are recommending the continued use of Depo forms of antipsychotic medications, but, in the past, the patient has simply refused to return to the office of the healthcare professional who is administering the sectionas was the case last year when, after doing reasonably well, he stopped going for treatment, and stopped excepting medications. For this reason, we are carefully looking for a supportive living setting for this patient, preferably one that has the resources necessary to assist the resistant, not adherent to patient. 12/24 - remains better compliant with PO meds 12/25 - Takes meds when he thinks he needs them, but voiced some question about taking anything regularly after discharge. 12/29 -the patient refused a dose of haloperidol yesterday and received haloperidol 10 mg intramuscularly over objection from disease no holes were required and the patient was cooperative with the injection closed with disease. Afterwards, he wondered out loud why he had refused the medication, knowing that he would get it "one way or the other." Because the patient seemed to have responded well, in terms of his disorganized thinking, to the intramuscular dose of haloperidol, there has been some discussion in the team regarding the question of "cheeking" his oral medications. However, the explanation may be that haloperidol 10 mg IM is more potent than orally. In any event, today the patient commits to continued adherence with his medications as he acknowledges that he does feel that they have been helpful to him. 12/31 -potential signs of non compliance 12/30 and 12/31, consider further titration of haldol deaconate as appropriate to help ensure as full of dose being obtained as possible. maintained plan of haldol IM injections for non compliance of haldol po doses 01/05- Switch haldol to liquid due to cheeking. 01/06 -second dose of Haldol Decanoate as above. Will taper off of oral Haldol over the next 30-60 days, and ideally maintain him on injectable medication given his history of cheeking and noncompliance with oral medication. He continues to refuse clozapine, could consider the addition of an injectable atypical antipsychotic if Haldol Decanoate is insufficient to control symptoms. Present on Admission?: Yes (3) Substance abuse: 12/14 -patient is not forthcoming, but mother reports he has been abusing alcohol, cough syrup, diphenhydramine, and likely other substances. We will monitor for withdrawal symptoms, and as his psychosis improves, will provide psychoeducation about the risks of substance abuse and recommendations for abstinence. -Avoid controlled substances given high risk of abuse/misuse/negative outcomes. 12/15 -It is recognized that the patient has an extensive history of abusing chemical substances, and it is generally agreed that use of controlled substances does pose significant risk of abuse and other negative outcomes in the long-term. However, the patient's irritability and unwillingness to cooperate with essential medications, such as haloperidol, as well as his history of physical aggression towards others, may be mitigated by the temporary use of a benzodiazepine. Today, a single dose of lorazepam seems to have been effective in helping the patient maintain composure during an involuntary commitment hearing that did not go in his favor, and staff have noticed that he has been somewhat more cooperative today, possibly in response to the dose of lorazepam. Accordingly, staff will continue to offer the patient as needed lorazepam. 12/21 -admission drug screen was positive for benzodiazepines, with significantly elevated temazepam (> 2000) and elevated oxazepam levels. Although he denied taking benzodiazepines prior to admission, he clearly was accessing them wilbur ehow. 12/22 -the patient is able to give what may be referred to as "lip service" to the concept of abstinence from drugs of abuse, but he seems to have little or no insight into the risks associated with his abuse of mood altering chemical substances, particularly within the context of his psychiatric illness. Again, a whole will be to identify an aftercare placement that we will be able to hang tor him more assiduously for access to abusable chemical substances, including prescription medications, alcohol, and other drugs of abuse. Present on Admission?: Yes (4) Antisocial personality disorder: 12/14 -extensive, lifelong history provided by adoptive mother which reveals a pervasive pattern of disregard for and violation of the rights of others which started at age 8 or earlier, failure to conform to social norms with respect to lawful behaviors as indicated by repeatedly performing acts that are grounds for arrest, deceitfulness, impulsivity and failure to plan ahead, irritability and aggressiveness, reckless disregard for safety of self and others, consistent irresponsibility, and lack of remorse. 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 -Reviewed expectations with respect to behavior on the unit. 12/15 -The patient's history of antisocial behavior is noted, and antisocial personality will not be a focus of treatment during this hospitalization. However, the record indicates that the patient's antisocial behaviors, which are lifelong, are mitigated to some extent when he is being successfully treated for his psychotic disorder. Accordingly, the approach will be to address his antisocial behaviors by focusing on addressing his psychosis. 12/22 -The patient's long-standing history of antisocial behaviorbehavior which reportedly predates the onset of his symptoms of schizophreniahave not been a focus of treatment and are unlikely to change. Careful monitoring, diversion, containment to the degree possible, to containment of the most appropriate interventions for this problem. Present on Admission?: Yes Inventory Assets Strengths: Good physical health. Able to form alliances with certain peers. Concerned and supportive parents. Needs: Continued adherence with psychiatric medications. Sustained recovery from psychotic features. Risk Factors Assessment Male: Yes : Yes Do You Have Access To A Gun?: No Health Problems: Yes Mental Health Diagnoses: Yes Substance Use Disorders: Yes Previous Attempt: No Previous Psychiatric Hospitalization: Yes Hopelessness: No Smoker: Yes Protective Factors Assessment Anabaptism Beliefs: No : No Responsible for Young Children: No Employed: No Stable Relationships: No Supportive Family: Yes Good Rapport with Provider: No Absence of Any Risk Factors Above: No Interval History Identifying Information APRIL GONZALEZ is a 43-year-old M who lives in [place] with his parents, has a history of a psychotic disorder (specific diagnosis not yet known, but history of multiple previous hospitalizations including a 1 year state hospitalization in [place]), and was admitted on 12/14/18 03:41 on a 302 involuntary commitment for psychosis, treatment noncompliance, and erratic, unsafe behavior. He is on a 304 involuntary commitment as of 12/26/2018. Chief Complaint "Okay". Review of Systems Sleep Information Total Hours of Sleep: 6 Sleep Comments: pt on q-15 minute checks Meal Information Percent Meal Consumed - Breakfast: 100 Percent Meal Consumed - Lunch: 100 Percent Meal Consumed - Dinner: 100 Nutrition Comment: pt. sleeping Subjective Subjective Patient was seen & assessed and interval progress reviewed with nursing and social work. Staff report he refused all groups other than self-awareness group, which he only attended briefly, received his second Haldol decanoate injection yesterday, and refuse clozapine. He requested multiple as needed medications, including Nicorette, hydroxyzine, lorazepam, and benztropine. He has been requesting and receiving 2-3 mg of lorazepam daily. On my assessment, the patient was seen in his room, as he had returned to bed after eating break fast. He reports that the restlessness he experienced yesterday has resolved, and denies stiffness, other than "in my head." He denies auditory and visual 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 and paranoia, but continues to report he does not need to be here and does not need medication. Reviewed the plan to taper him off oral haloperidol over the next weeks to months. Physical Exam Psychiatric Orientation: alert and + guarded Apperance: appropriately dressed and + disheveled; + did not appear stated age Eye Contact: good eye contact Motor Behavior: no abnormal motor movements No rigidity or cogwheeling on bilateral upper extremity exam Speech: normal rate/rhythm/volume of speech Minimal speech, brief answers Affect: + flat affect "Okay." Thought Process: + concrete thought process Thought Content: reality based without delusions Suicidal Thoughts: denies suicidal thoughts Homicidal Thoughts: denies homicidal thoughts Hallucinations: no auditory 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 and no visual 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 Cognition: recent memory grossly intact, attention grossly intact and language grossly intact Insight: + severely impaired insight Judgement: + severely impaired judgement Vital Signs (Past 24 Hours) Last Vital Signs Temp 36.3 C L 01/07/19 06:52 Pulse 98 H 01/07/19 06:53 Resp 18 01/07/19 06:52 BP 114/70 01/07/19 06:53 Pulse Ox 97 12/14/18 03:38 Results & Data Current Inpatient Medications Current Inpatient Medications: Current Inpatient Medications Acetaminophen (Tylenol) 650 mg PO Q4H PRN PRN Reason: Headache or Minor Fever Stop: 01/13/19 02:51 Last Admin: 01/06/19 18:19 Dose: 650 mg Documented by: Al Hydrox/Mg Hydrox/Simethicone (Maalox) 30 ml PO Q4H PRN PRN Reason: GI Upset Stop: 01/13/19 02:51 Benztropine Mesylate (Cogentin) 1 mg PO BID PRN PRN Reason: akathisia Stop: 01/26/19 20:59 Last Admin: 01/06/19 20:14 Dose: 1 mg Documented by: Bismuth Subsalicylate (Kaopectate) 15 ml PO PRN PRN PRN Reason: Loose Stool Stop: 01/13/19 02:51 Clozapine (Clozaril) 25 mg PO DAILY [facility] Stop: 02/06/19 08:59 Last Admin: 01/07/19 08:34 Dose: Not Given Documented by: Docusate Sodium (Colace) 100 mg PO HS PRN PRN Reason: constipation Stop: 01/23/19 21:59 Haloperidol Decanoate (Haldol Decanoate) 200 mg IM Q28D@0900 [facility] Stop: 02/18/19 08:59 Haloperidol Lactate (Haldol) 10 mg IM Q4 PRN PRN Reason: psychosis or agitation Stop: 01/13/19 03:55 Last Admin: 12/28/18 16:54 Dose: 10 mg Documented by: Haloperidol Lactate (Haldol) 10 mg IM 0900,1600 PRN PRN Reason: refusal of PO Stop: 01/20/19 09:56 Last Admin: 01/05/19 09:24 Dose: 10 mg Documented by: Haloperidol Lactate (Haldol Lactate) 10 mg PO QAM [facility] Stop: 02/05/19 08:59 Last Admin: 01/07/19 08:33 Dose: 10 mg Documented by: Haloperidol Lactate (Haldol Lactate) 10 mg PO Q4H PRN PRN Reason: Psychosis or agitation Stop: 02/05/19 08:50 Hydroxyzine HCl (Vistaril) 25 mg PO Q4H PRN PRN Reason: Anxiety Stop: 01/13/19 02:51 Last Admin: 01/06/19 15:02 Dose: 25 mg Documented by: Hydroxyzine HCl (Vistaril) 50 mg PO HSZ PRN PRN Reason: Insomnia Stop: 01/13/19 02:51 Last Admin: 01/04/19 21:54 Dose: 50 mg Documented by: Lorazepam (Ativan) 1 mg PO Q4 PRN PRN Reason: Agitation Stop: 01/13/19 03:52 Last Admin: 01/06/19 18:17 Dose: 1 mg Documented by: Lorazepam (Ativan) 1 mg IM Q4 PRN PRN Reason: Agitation Stop: 01/13/19 03:54 Magnesium Hydroxide (Milk Of Magnesia) 30 ml PO DAILY PRN PRN Reason: Heartburn Stop: 01/13/19 02:51 Menthol (Nice) 1 be BUCCAL Q2H PRN PRN Reason: Sore Throat Stop: 01/19/19 20:40 Last Admin: 12/20/18 20:52 Dose: 1 be Documented by: Miscellaneous (Remove Nicoderm Patch) 1 ea N/A DAILY@2100 [facility] Stop: 01/13/19 20:59 Last Admin: 01/06/19 20:42 Dose: Not Given Documented by: Nicotine (Nicoderm Cq) 21 mg TD QAM [facility] Stop: 01/13/19 08:59 Last Admin: 01/07/19 08:32 Dose: 21 mg Documented by: Nicotine Polacrilex ([place]oret[place] 2mg) 1 piece [place] UD PRN PRN Reason: Nicotine Withdrawal Stop: 01/13/19 08:20 Last Admin: 01/06/19 17:22 Dose: 1 piece Documented by: Sodium Chloride ([place] Nasal) 1 - 2 sprays NA PRN PRN PRN Reason: Nasal Dryness/Congestion Stop: 01/13/19 02:51 Post Discharge Appointments Primary Care Physician Name Of Family Doctor: Denies Therapist Name of Therapist: Denies Information Technology Security Manager Name of Information Technology Security Manager: [employer] Phone Number for Information Technology Security Manager: [phone] Case Management Appointment Comment: [address], [address], [place], [place] CPT Code CPT Code [address]8085
[2019-01-07] MEDS: LORazepam 1 MG TAB PO PRN ×3 (09:24→17:36)
[2019-01-07] MEDS: ACETAMINOPHEN 325 MG TAB PO PRN ×3 (09:24→17:35)
[2019-01-07] MEDS: BENZTROPINE MESYLATE 1 MG TAB PO PRN (16:37)
[2019-01-08] MEDS: ACETAMINOPHEN 325 MG TAB PO PRN ×3 (09:10→21:10)
[2019-01-08] MEDS: LORazepam 1 MG TAB PO PRN (09:10)
[2019-01-08] MEDS: cloZAPine 25 MG TAB PO SCH (09:23)
[2019-01-08] MEDS: NICOTINE 21 MG/24 HR TDSY TD SCH (09:23)
[2019-01-08] MEDS: HALOPERIDOL ORAL SOLN 2 MG/ML PO SCH (09:23)
--- NOTE | 2019-01-08 10:58 | Psychiatric Progress Note ---
Date of Service January 08, 2019 Impression / Recommendations Impression Condition unchanged. He is taking his meds but not participating in any programming and spending a lot of time in bed or watching TV despite encouragement. Diversion meeting with the [facility] is tomorrow and we will continue to recommend the [facility] given his inability to willingly participate in treatment, his of cheeking his meds, and complete lack of insight into his illness or his behaviors. (1) Schizophrenia: 12/14 -patient is a poor historian, but mother provides historical information. 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 For now we will collect psychosis not otherwise specified. -Patient is refusing to sign releases for previous outpatient providers in [place], and staff contacted them but they refused to provide any information without a signed release. -Medically necessary private room due to psychosis, erratic and disorganized behavior, history of violence, and aggressive behavior and threats to harm others here in the hospital. -Start haloperidol 5 mg twice daily, as patient has a previous good response to Haldol Decanoate and clozapine. Recommend medications over objection once he is on a 303 involuntary commitment and has been seen by a second physician, as he has severe psychotic symptoms which are preventing him from accurately interpreting reality, influencing his behavior, and placing him at risk of harm to both himself and others as he has been acting on his delusions, experiencing auditory and visual 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, paranoia, engaging in unsafe behaviors including driving when he does not have a license or the knowledge to do so, abusing substances, and has been threatening towards others. He demonstrates no insight into his condition, but available information indicates response to treatment with antipsychotic medications in the past. -Medically necessary private room due to psychosis, aggressive behavior, and threats to harm others. -We will need to check fasting lipid profile and glucose once he is cooperative. -Excused from groups from the time being until able to participate appropriately. -Refusing to sign releases for parents, but mother is petitioner, so can inform her of the 303 hearing. 12/15 -The patient did except a single dose of lorazepam this morning, and did seem to be somewhat more calm. He was mildly labile during his involuntary commitment hearing this morning, but managed to maintain control and was not aggressive during the hearing or upon learning that he had been retained by the chairman & chief executive officer. Accordingly, we will continue to offer him lorazepam, since this medication in his case does not seem to be disinhibiting and, at least today, appeared to have helped him manage angry impulses during his involuntary commitment hearing. -The treatment team and I agree that, if possible, we would like to convince the patient to voluntarily take oral medications. Reports are that this morning he came close to taking oral haloperidol, but at the last minute declined. He is telling us that he will consistently refused medications, but our hope is that as we are able to gain his trust he will become more cooperative. We will continue to try to convince the patient to take oral haloperidol, but if this is unsuccessful we will seek two physician approval of medication over objection and give Haldol 5 mg IM BID. 12/16--tolerating Haldol, titrate to 10 mg BID. 12/18 - Continue haldol 10 mg bid - Continue discussion about LAMA - Encourage better sleep hygiene, staying awake in the day to promote sleep at night. 12/19 - Patient allowed labs to be drawn. FBS 93, FLP WNL with the exception of triglycerides of 186. Counseled to avoid fatty red meats, saturated fats. 12/20 -Again discussed the recommendations for long-acting injectable antipsychotic medication with the patient, which he initially declined because he said medications are poison. He has a meeting with his family this afternoon, and I will order the first loading dose of Haldol Decanoate 50 mg IM to be administered this afternoon, and if he is unwilling to take it, we will likely need to proceed with medications over objection tomorrow. We will try to encourage him to accept the intervention, as he reportedly did fairly well on this medication in the past. 12/21 -proceed with medications over objection: Haldol Decanoate 100 mg IM today, and Haldol 10 mg IM for refusal of oral Haldol. He will need 100-200 mg of Haldol Decanoate every 4 weeks based on his current oral dose, so will continue oral haloperidol for now until we can monitor response to the decanoate. 12/22 -the patient received Haldol Decanoate intramuscularly today, as a medication over objection. He tolerated the injection well, and today tells me that he "feels pretty good." -Today, the patient's associations seemed to be fairly tight on examination. He tends to be somewhat concrete in his thinking, but, as above, he did seem able to understand our rationale for continuing inpatient treatment at this point. 12/23 - tolerating halol dec w/o EPS or other complaints. will need to consider reduction of oral dose in approx 1 week. 12/24 - pt remains less acutely behaviorally disturbed since Haldol dec injection last however evidenced mild acting out when physically uncomfortable today - will add standing docusate 100mg po qhs and encourage oral hydration today for complaint of hard stool - meeting / [facility] services tomorrow to explore dispo options 12/25 - Increase in irritability - Planning meeting held with [facility]: possibility for CRR vs state hospital - Continue current meds and encourage prns 12/26 - 304 granted. Meeting with [facility], patient and parents held yesterday: parents confirmed he cannot return home. Treatment team and [facility] recommends state hospitalization, as patient not appropriate for CRR placement due to severity of symptoms and unwillingness for outpatient treatment and medications. 12/27 - Continue current medication regimen - Orders placed for necessary EKG, TB skin test to accompany [facility] referral - Place on high elopement precautions last evening due to suspicious loitering at the entryway of the unit - Reviewed records from [facility] - previous diagnoses were schizoaffective disorder and substance abuse 12/28 - Continue current medication regimen - EKG and PPD completed yesterday - PPD will need read on 12/30 12/29 -Add clozapine 12.5 mg BID and increase as tolerated by 25 mg per day to a dose of 300 mg daily (in two divided dosages, or all at bedtime).' 12/30 -titrating clozapine to 12.5 am and 25mg hs for 12/30 with plan to increase to 25mg bid on 12/31 and likely further titration if tolerating -maintained Haldol decanoate and Haldol po unchanged for now, with consideration of weaning Haldol po dose if clozapine is effective ,, although pt appears to have history of both Haldol forms being rx'd while on past clozapine med trial. Pt has been observed by staff to be improving as obtaining medication of haldol (including the immediate IM doses) 12/31 close monitoring for checking, continue plan above for IM Haldol over objection if checking haldol scheduled doses. Maintain clozapine dosing plan for now with potential re-considering clozapine plan if compklaince issues are occuring. Consider further titration of haldol decanoate as appropaite. 01/01 - Patient refusing Clozaril. Will leave in place, but not force meds over objection for refusal - Increase Haldol to 10 mg AM and 15 mg HS, with meds over objection for refusal - Continue MNPR due to irritability and hx of violence 01/02 -continue oral haloperidol 10 mg every morning and 15 mg at bedtime (moved to later time to try to minimize sedation/spending excessive time in bed during the day), and Haldol decanoate, next injection due 01/19/2019. Continue Lorazepam as needed. -He continues to refuse clozapine. 01/03 - Continue current meds and plan - Continue MNPR in deference to history of violence toward others. 01/04 - Continue current meds and plan - Meeting scheduled with the [facility] to discuss disposition 01/05 - Change pills to liquid due to cheeking - Encourage patient to be out of bed and participating in his treatment - Planning meeting scheduled with the [facility] for next Saturday 01/06 -Patient agrees to a second Haldol Decanoate injection, 100 mg, with the hopes that we can taper him off oral haloperidol given his poor compliance. He has been on 25 mg p.o. daily, which is the equivalent of an initial dose of 500 mg decanoate (per UpToDate, dose of oral haloperidol > 10 mg and high risk of relapse, initiate dose at 20 times the daily oral dose). He got his initial Haldol Decanoate 100 mg on 12/22/2018. He will be due for his next injection on 01/19/2019, currently ordered for 200 mg, but may need to consider a higher dose given noncompliance with oral medication. Maintenance doses are typically 50- 200 mg. Will continue oral haloperidol liquid 10 mg every morning, but discontinue the 15 mg at bedtime dose. Oral haloperidol can be tapered over the period of the first 3 decanoate shots (60-90 days) depending on response. -Continue clozapine but decrease to 25 mg daily, as he has not been taking it, and continue to encourage him to try it, as it was reportedly beneficial in the past and stabilized him sufficiently to be discharged from the [facility]. -Continue as needed medications (Lorazepam, benztropine, haloperidol, and hydroxyzine). 01/07 -continue current medications and plan. 01/08 - Continue current meds and plan - Diversion meeting with the county scheduled for tomorrow. (2) Noncompliance with medications: 12/14 -stopped his medications 6 months ago and has decompensated since. Would benefit from a long-acting injectable, and either long-term inpatient treatment at the [facility] or involuntary outpatient treatment.. 12/15 -The patient's psychosis and severely impaired insight seem to be making him and accessible to reason, regarding the essential importance of psychiatric medications. There is a past history of favorable response to haloperidol as well as to clozapine. It is agreed that the patient would in all likelihood benefit from a long-acting injectable antipsychotic medication, given his history of recurrent medication nonadherence. 12/16--currently taking PO for a few doses, is on extended involuntary commitment and clearly ongoing schizophrenia which will fail to improve for him to be able to provide self-care without ongoing treatments on inpatient unit and medications over objection. Without antipsychotic medication he is at significant risk of /serious disability and a danger to himself/others. Dr. Srinivasan could provide second opinion if he refuses PO med. 12/18- Patient refusing to consider LAMA at this time. Will continue to encourage 12/21 -patient continues to refuse Haldol Decanoate, and is now also refusing oral Haldol. We will proceed with medications over objection, as he has a diagnosis of primary thought disorder, has benefited from Haldol Decanoate in the past, he is actively delusional and is refusing medications due to psychotic thought processes, and is at risk of harm to both himself and others if he remains untreated. He has a significant history of violence tied to his delusions, and it will be important to get his symptoms adequately managed to decrease the risk of violence towards others here in the hospital. 12/22 -medication adherence is most certainly going issue with this patient. We are recommending the continued use of Depo forms of antipsychotic medications, but, in the past, the patient has simply refused to return to the office of the healthcare professional who is administering the sectionas was the case last year when, after doing reasonably well, he stopped going for treatment, and stopped excepting medications. For this reason, we are carefully looking for a supportive living setting for this patient, preferably one that has the resources necessary to assist the resistant, not adherent to patient. 12/24 - remains better compliant with PO meds 12/25 - Takes meds when he thinks he needs them, but voiced some question about taking anything regularly after discharge. 12/29 -the patient refused a dose of haloperidol yesterday and received haloperidol 10 mg intramuscularly over objection from disease no holes were required and the patient was cooperative with the injection closed with disease. Afterwards, he wondered out loud why he had refused the medication, knowing that he would get it "one way or the other." Because the patient seemed to have responded well, in terms of his disorganized thinking, to the intramuscular dose of haloperidol, there has been some discussion in the team regarding the question of "cheeking" his oral medications. However, the explanation may be that haloperidol 10 mg IM is more potent than orally. In any event, today the patient commits to continued adherence with his medications as he acknowledges that he does feel that they have been helpful to him. 12/31 -potential signs of non compliance 12/30 and 12/31, consider further titration of haldol deaconate as appropriate to help ensure as full of dose being obtained as possible. maintained plan of haldol IM injections for non compliance of haldol po doses 01/05- Switch haldol to liquid due to cheeking. 01/06 -second dose of Haldol Decanoate as above. Will taper off of oral Haldol over the next 30-60 days, and ideally maintain him on injectable medication given his history of cheeking and noncompliance with oral medication. He continues to refuse clozapine, could consider the addition of an injectable atypical antipsychotic if Haldol Decanoate is insufficient to control symptoms. (3) Substance abuse: 12/14 -patient is not forthcoming, but mother reports he has been abusing alcohol, cough syrup, diphenhydramine, and likely other substances. We will monitor for withdrawal symptoms, and as his psychosis improves, will provide psychoeducation about the risks of substance abuse and recommendations for abstinence. -Avoid controlled substances given high risk of abuse/misuse/negative outcomes. 12/15 -It is recognized that the patient has an extensive history of abusing chemical substances, and it is generally agreed that use of controlled substances does pose significant risk of abuse and other negative outcomes in the long-term. However, the patient's irritability and unwillingness to cooperate with essential medications, such as haloperidol, as well as his history of physical aggression towards others, may be mitigated by the temporary use of a benzodiazepine. Today, a single dose of lorazepam seems to have been effective in helping the patient maintain composure during an involuntary commitment hearing that did not go in his favor, and staff have noticed that he has been somewhat more cooperative today, possibly in response to the dose of lorazepam. Accordingly, staff will continue to offer the patient as needed lorazepam. 12/21 -admission drug screen was positive for benzodiazepines, with significantly elevated temazepam (> 2000) and elevated oxazepam levels. Although he denied taking benzodiazepines prior to admission, he clearly was accessing them somehow. 12/22 -the patient is able to give what may be referred to as "lip service" to the concept of abstinence from drugs of abuse, but he seems to have little or no insight into the risks associated with his abuse of mood altering chemical substances, particularly within the context of his psychiatric illness. Again, a whole will be to identify an aftercare placement that we will be able to monitor him more assiduously for access to abusable chemical substances, including prescription medications, alcohol, and other drugs of abuse. (4) Antisocial personality disorder: 12/14 -extensive, lifelong history provided by adoptive mother which reveals a pervasive pattern of disregard for and violation of the rights of others which started at age 8 or earlier, failure to conform to social norms with respect to lawful behaviors as indicated by repeatedly performing acts that are grounds for arrest, deceitfulness, impulsivity and failure to plan ahead, irritability and aggressiveness, reckless disregard for safety of self and others, consistent irresponsibility, and lack of remorse. 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 -Reviewed expectations with respect to behavior on the unit. 12/15 -The patient's history of antisocial behavior is noted, and antisocial personality will not be a focus of treatment during this hospitalization. However, the record indicates that the patient's antisocial behaviors, which are lifelong, are mitigated to some extent when he is being successfully treated for his psychotic disorder. Accordingly, the approach will be to address his antisocial behaviors by focusing on addressing his psychosis. 12/22 -The patient's long-standing history of antisocial behaviorbehavior which reportedly predates the onset of his symptoms of schizophreniahave not been a focus of treatment and are unlikely to change. Careful monitoring, diversion, containment to the degree possible, to containment of the most appropriate interventions for this problem. Inventory Assets Strengths: Good physical health. Able to form alliances with certain peers. Concerned and supportive parents. Needs: Continued adherence with psychiatric medications. Sustained recovery from psychotic features. Risk Factors Assessment Male: Yes : Yes Do You Have Access To A Gun?: No Health Problems: Yes Mental Health Diagnoses: Yes Substance Use Disorders: Yes Previous Attempt: No Previous Psychiatric Hospitalization: Yes Hopelessness: No Smoker: Yes Protective Factors Assessment Moravian Beliefs: No : No Responsible for Young Children: No Employed: No Stable Relationships: No Supportive Family: Yes Good Rapport with Provider: No Absence of Any Risk Factors Above: No Interval History Identifying Information APRIL GONZALEZ is a 43-year-old M who lives in [place] with his parents, has a history of a psychotic disorder (specific diagnosis not yet known, but history of multiple previous hospitalizations including a 1 year state hospitalization in [place]), and was admitted on 12/14/18 03:41 on a 302 involuntary commitment for psychosis, treatment noncompliance, and erratic, unsafe behavior. He is on a 304 involuntary commitment as of 12/26/2018. Chief Complaint "I'm OK. ". Review of Systems Sleep Information Total Hours of Sleep: 6 Sleep Comments: pt given vistaril per rn. pt on q-15 minute checks Meal Information Percent Meal Consumed - Breakfast: 100 Percent Meal Consumed - Lunch: 100 Percent Meal Consumed - Dinner: 100 Nutrition Comment: pt. sleeping Subjective Subjective Patient was seen & assessed and interval progress reviewed with Treatment Team. The patient has again returned to bed after eating breakfast. He awakens to verbal, but says that he is tired and doesn't feel well, the same things he has been saying for some time. He is nonspontaneous in his conversation, only responding to questions. He denies SI/HI, denies aud/vis 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. he denies getting messages from the tV and denies side effects to meds. I remind him that the meeting with the [facility] to discuss future treatment is tomorrow, and that I would like to see him go to all groups today to demonstrate that he is willing to comply with treatment recommendations. He says OK, but goes back to sleep. Physical Exam Psychiatric Orientation: + uncooperative Apperance: + disheveled Eye Contact: + poor eye contact Motor Behavior: no abnormal motor movements Speech: normal rate/rhythm/volume of speech (nonspontaneous) Affect: + flat affect Mood: no depressed mood and no anxious mood "tired" Thought Process: goal directed thought process Thought Content: reality based without delusions Suicidal Thoughts: denies suicidal thoughts Homicidal Thoughts: denies homicidal thoughts Hallucinations: no auditory 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 and no visual 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 Cognition: language grossly intact Estimated Intelligence: consistent with education level Insight: + impaired insight Judgement: + impaired judgement Vital Signs (Past 24 Hours) Last Vital Signs Temp 36.3 C L 01/07/19 06:52 Pulse 98 H 01/07/19 06:53 Resp 18 01/07/19 06:52 BP 114/70 01/07/19 06:53 Pulse Ox 97 12/14/18 03:38 Results & Data Current Inpatient Medications Current Inpatient Medications: Current Inpatient Medications Acetaminophen (Tylenol) 650 mg PO Q4H PRN PRN Reason: Headache or Minor Fever Stop: 01/13/19 02:51 Last Admin: 01/08/19 09:10 Dose: 650 mg Documented by: Al Hydrox/Mg Hydrox/Simethicone (Maalox) 30 ml PO Q4H PRN PRN Reason: GI Upset Stop: 01/13/19 02:51 Benztropine Mesylate (Cogentin) 1 mg PO BID PRN PRN Reason: akathisia Stop: 01/26/19 20:59 Last Admin: 01/07/19 16:37 Dose: 1 mg Documented by: Bismuth Subsalicylate (Kaopectate) 15 ml PO PRN PRN PRN Reason: Loose Stool Stop: 01/13/19 02:51 Clozapine (Clozaril) 25 mg PO DAILY KELLY Stop: 02/06/19 08:59 Last Admin: 01/08/19 09:23 Dose: Not Given Documented by: Docusate Sodium (Colace) 100 mg PO HS PRN PRN Reason: constipation Stop: 01/23/19 21:59 Haloperidol Decanoate (Haldol Decanoate) 200 mg IM Q28D@0900 [facility] Stop: 02/18/19 08:59 Haloperidol Lactate (Haldol) 10 mg IM Q4 PRN PRN Reason: psychosis or agitation Stop: 01/13/19 03:55 Last Admin: 12/28/18 16:54 Dose: 10 mg Documented by: Haloperidol Lactate (Haldol) 10 mg IM 0900,1600 PRN PRN Reason: refusal of PO Stop: 01/20/19 09:56 Last Admin: 01/05/19 09:24 Dose: 10 mg Documented by: Haloperidol Lactate (Haldol Lactate) 10 mg PO QAM KELLY Stop: 02/05/19 08:59 Last Admin: 01/08/19 09:23 Dose: 10 mg Documented by: Haloperidol Lactate (Haldol Lactate) 10 mg PO Q4H PRN PRN Reason: Psychosis or agitation Stop: 02/05/19 08:50 Hydroxyzine HCl (Vistaril) 25 mg PO Q4H PRN PRN Reason: Anxiety Stop: 01/13/19 02:51 Last Admin: 01/06/19 15:02 Dose: 25 mg Documented by: Hydroxyzine HCl (Vistaril) 50 mg PO HSZ PRN PRN Reason: Insomnia Stop: 01/13/19 02:51 Last Admin: 01/07/19 22:34 Dose: 50 mg Documented by: Lorazepam (Ativan) 1 mg PO Q4 PRN PRN Reason: Agitation Stop: 01/13/19 03:52 Last Admin: 01/08/19 09:10 Dose: 1 mg Documented by: Lorazepam (Ativan) 1 mg IM Q4 PRN PRN Reason: Agitation Stop: 01/13/19 03:54 Magnesium Hydroxide (Milk Of Magnesia) 30 ml PO DAILY PRN PRN Reason: Heartburn Stop: 01/13/19 02:51 Menthol (Nice) 1 be BUCCAL Q2H PRN PRN Reason: Sore Throat Stop: 01/19/19 20:40 Last Admin: 12/20/18 20:52 Dose: 1 be Documented by: Miscellaneous (Remove Nicoderm Patch) 1 ea N/A DAILY@2100 [facility] Stop: 01/13/19 20:59 Last Admin: 01/07/19 20:53 Dose: 1 ea Documented by: Nicotine (Nicoderm Cq) 21 mg TD QAM KELLY Stop: 01/13/19 08:59 Last Admin: 01/08/19 09:23 Dose: 21 mg Documented by: Nicotine Polacrilex (Nicorette 2mg) 1 piece MT UD PRN PRN Reason: Nicotine Withdrawal Stop: 01/13/19 08:20 Last Admin: 01/06/19 17:22 Dose: 1 piece Documented by: Sodium Chloride (Temple Nasal) 1 - 2 sprays NA PRN PRN PRN Reason: Nasal Dryness/Congestion Stop: 01/13/19 02:51 Post Discharge Appointments Primary Care Physician Name Of Family Doctor: Denies Therapist Name of Therapist: Denies Deoiling Machine Operator Name of Deoiling Machine Operator: [employer] Phone Number for Deoiling Machine Operator: [phone] Case Management Appointment Comment: [address], [address], [place], [place] CPT Code CPT Code 09090
[2019-01-08] MEDS ORDERED: LORazepam 0.5 MG TAB PO PRN (15:00)
--- NOTE | 2019-01-09 08:38 | Psychiatric Progress Note ---
Date of Service January 09, 2019 Impression / Recommendations Impression Condition unchanged, not participating in treatment, continues to steal various items on the unit and hide them in his room, and requesting frequent as needed medications. He is taking liquid Haldol, but refusing olanzapine, and spending a lot of time in bed or watching TV despite encouragement to attend groups. He has been referred to the [facility] given his inability to willingly participate in treatment, his of cheeking his meds, and complete lack of insight into his illness or his behaviors, and we are still awaiting a bed date. (1) Schizophrenia: 12/14 -patient is a poor historian, but mother provides historical information. 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 For now we will collect psychosis not otherwise specified. -Patient is refusing to sign releases for previous outpatient providers in [place], and staff contacted them but they refused to provide any information without a signed release. -Medically necessary private room due to psychosis, erratic and disorganized behavior, history of violence, and aggressive behavior and threats to harm others here in the hospital. -Start haloperidol 5 mg twice daily, as patient has a previous good response to Haldol Decanoate and clozapine. Recommend medications over objection once he is on a 303 involuntary commitment and has been seen by a second physician, as he has severe psychotic symptoms which are preventing him from accurately interpreting reality, influencing his behavior, and placing him at risk of harm to both himself and others as he has been acting on his delusions, experiencing auditory and visual 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, paranoia, engaging in unsafe behaviors including driving when he does not have a license or the knowledge to do so, abusing substances, and has been threatening towards others. He demonstrates no insight into his condition, but available information indicates response to treatment with antipsychotic medications in the past. -Medically necessary private room due to psychosis, aggressive behavior, and threats to harm others. -We will need to check fasting lipid profile and glucose once he is cooperative. -Excused from groups from the time being until able to participate appropriately. -Refusing to sign releases for parents, but mother is petitioner, so can inform her of the 303 hearing. 12/15 -The patient did except a single dose of lorazepam this morning, and did seem to be somewhat more calm. He was mildly labile during his involuntary commitment hearing this morning, but managed to maintain control and was not aggressive during the hearing or upon learning that he had been retained by the learning and development officer. Accordingly, we will continue to offer him lorazepam, since this medication in his case does not seem to be disinhibiting and, at least today, appeared to have helped him manage angry impulses during his involuntary commitment hearing. -The treatment team and I agree that, if possible, we would like to convince the patient to voluntarily take oral medications. Reports are that this morning he came close to taking oral haloperidol, but at the last minute declined. He is telling us that he will consistently refused medications, but our hope is that as we are able to gain his trust he will become more cooperative. We will continue to try to convince the patient to take oral haloperidol, but if this is unsuccessful we will seek two physician approval of medication over objection and give Haldol 5 mg IM BID. 12/16--tolerating Haldol, titrate to 10 mg BID. 12/18 - Continue haldol 10 mg bid - Continue discussion about LAMA - Encourage better sleep hygiene, staying awake in the day to promote sleep at night. 12/19 - Patient allowed labs to be drawn. FBS 93, FLP WNL with the exception of triglycerides of 186. Counseled to avoid fatty red meats, saturated fats. 12/20 -Again discussed the recommendations for long-acting injectable antipsychotic medication with the patient, which he initially declined because he said medications are poison. He has a meeting with his family this afternoon, and I will order the first loading dose of Haldol Decanoate 50 mg IM to be administered this afternoon, and if he is unwilling to take it, we will likely need to proceed with medications over objection tomorrow. We will try to encourage him to accept the intervention, as he reportedly did fairly well on this medication in the past. 12/21 -proceed with medications over objection: Haldol Decanoate 100 mg IM today, and Haldol 10 mg IM for refusal of oral Haldol. He will need 100-200 mg of Haldol Decanoate every 4 weeks based on his current oral dose, so will continue oral haloperidol for now until we can monitor response to the decanoate. 12/22 -the patient received Haldol Decanoate intramuscularly today, as a medication over objection. He tolerated the injection well, and today tells me that he "feels pretty good." -Today, the patient's associations seemed to be fairly tight on examination. He tends to be somewhat concrete in his thinking, but, as above, he did seem able to understand our rationale for continuing inpatient treatment at this point. 12/23 - tolerating halol dec w/o EPS or other complaints. will need to consider reduction of oral dose in approx 1 week. 12/24 - pt remains less acutely behaviorally disturbed since Haldol dec injection last however evidenced mild acting out when physically uncomfortable today - will add standing docusate 100mg po qhs and encourage oral hydration today for complaint of hard stool - meeting w/ [facility] services tomorrow to explore dispo options 12/25 - Increase in irritability - Planning meeting held with [facility]: possibility for CRR vs state hospital - Continue current meds and encourage prns 12/26 - 304 granted. Meeting with [facility], patient and parents held yesterday: parents confirmed he cannot return home. Treatment team and [facility] recommends state hospitalization, as patient not appropriate for CRR placement due to severity of symptoms and unwillingness for outpatient treatment and medications. 12/27 - Continue current medication regimen - Orders placed for necessary EKG, TB skin test to accompany [place] referral - Place on high elopement precautions last evening due to suspicious loitering at the entryway of the unit - Reviewed records from [place] [facility] - previous diagnoses were schizoaffective disorder and substance abuse 12/28 - Continue current medication regimen - EKG and PPD completed yesterday - PPD will need read on 12/30 12/29 -Add clozapine 12.5 mg BID and increase as tolerated by 25 mg per day to a dose of 300 mg daily (in two divided dosages, or all at bedtime).' 12/30 -titrating clozapine to 12.5 am and 25mg hs for 12/30 with plan to increase to 25mg bid on 12/31 and likely further titration if tolerating -maintained Haldol decanoate and Haldol po unchanged for now, with consideration of weaning Haldol po dose if clozapine is effective ,, although pt appears to have history of both Haldol forms being rx'd while on past clozapine med trial. Pt has been observed by staff to be improving as obtaining medication of haldol (including the immediate IM doses) 12/31 close monitoring for checking, continue plan above for IM Haldol over objection if checking haldol scheduled doses. Maintain clozapine dosing plan for now with potential re-considering clozapine plan if compklaince issues are occuring. Consider further titration of haldol decanoate as appropaite. 01/01 - Patient refusing Clozaril. Will leave in place, but not force meds over objection for refusal - Increase Haldol to 10 mg AM and 15 mg HS, with meds over objection for refusal - Continue MNPR due to irritability and hx of violence 01/02 -continue oral haloperidol 10 mg every morning and 15 mg at bedtime (moved to later time to try to minimize sedation/spending excessive time in bed during the day), and Haldol decanoate, next injection due 01/19/2019. Continue Lorazepam as needed. -He continues to refuse clozapine. 01/03 - Continue current meds and plan - Continue MNPR in deference to history of violence toward others. 01/04 - Continue current meds and plan - Meeting scheduled with the [facility] to discuss disposition 01/05 - Change pills to liquid due to cheeking - Encourage patient to be out of bed and participating in his treatment - Planning meeting scheduled with the [facility] for next Saturday 01/06 -Patient agrees to a second Haldol Decanoate injection, 100 mg, with the hopes that we can taper him off oral haloperidol given his poor compliance. He has been on 25 mg p.o. daily, which is the equivalent of an initial dose of 500 mg decanoate (per UpToDate, dose of oral haloperidol > 10 mg and high risk of relapse, initiate dose at 20 times the daily oral dose). He got his initial Haldol Decanoate 100 mg on 12/22/2018. He will be due for his next injection on 01/19/2019, currently ordered for 200 mg, but may need to consider a higher dose given noncompliance with oral medication. Maintenance doses are typically 50- 200 mg. Will continue oral haloperidol liquid 10 mg every morning, but discontinue the 15 mg at bedtime dose. Oral haloperidol can be tapered over the period of the first 3 decanoate shots (60-90 days) depending on response. -Continue clozapine but decrease to 25 mg daily, as he has not been taking it, and continue to encourage him to try it, as it was reportedly beneficial in the past and stabilized him sufficiently to be discharged from the [facility]. -Continue as needed medications (Lorazepam, benztropine, haloperidol, and hydroxyzine). 01/07 -continue current medications and plan. 01/08 - Continue current meds and plan - Diversion meeting with the [facility] scheduled for tomorrow. 01/09 -continue private room given antisocial behavior/stealing. Meeting held with the [facility]; (2) Noncompliance with medications: 12/14 -stopped his medications 6 months ago and has decompensated since. Would benefit from a long-acting injectable, and either long-term inpatient treatment at the [facility] or involuntary outpatient treatment.. 12/15 -The patient's psychosis and severely impaired insight seem to be making him and accessible to reason, regarding the essential importance of psychiatric medications. There is a past history of favorable response to haloperidol as well as to clozapine. It is agreed that the patient would in all likelihood benefit from a long-acting injectable antipsychotic medication, given his history of recurrent medication nonadherence. 12/16--currently taking PO for a few doses, is on extended involuntary commitment and clearly ongoing schizophrenia which will fail to improve for him to be able to provide self-care without ongoing treatments on inpatient unit and medications over objection. Without antipsychotic medication he is at significant risk of /serious disability and a danger to himself/others. Dr. Srinivasan could provide second opinion if he refuses PO med. 12/18- Patient refusing to consider LAMA at this time. Will continue to encourage 12/21 -patient continues to refuse Haldol Decanoate, and is now also refusing oral Haldol. We will proceed with medications over objection, as he has a diagnosis of primary thought disorder, has benefited from Haldol Decanoate in the past, he is actively delusional and is refusing medications due to psychotic thought processes, and is at risk of harm to both himself and others if he remains untreated. He has a significant history of violence tied to his delusions, and it will be important to get his symptoms adequately managed to decrease the risk of violence towards others here in the hospital. 12/22 -medication adherence is most certainly going issue with this patient. We are recommending the continued use of Depo forms of antipsychotic medications, but, in the past, the patient has simply refused to return to the office of the healthcare professional who is administering the sectionas was the case last year when, after doing reasonably well, he stopped going for treatment, and stopped excepting medications. For this reason, we are carefully looking for a supportive living setting for this patient, preferably one that has the resources necessary to assist the resistant, not adherent to patient. 12/24 - remains better compliant with PO meds 12/25 - Takes meds when he thinks he needs them, but voiced some question about taking anything regularly after discharge. 12/29 -the patient refused a dose of haloperidol yesterday and received haloperidol 10 mg intramuscularly over objection from disease no holes were required and the patient was cooperative with the injection closed with disease. Afterwards, he wondered out loud why he had refused the medication, knowing that he would get it "one way or the other." Because the patient seemed to have responded well, in terms of his disorganized thinking, to the intramuscular dose of haloperidol, there has been some discussion in the team regarding the question of "cheeking" his oral medications. However, the explanation may be that haloperidol 10 mg IM is more potent than orally. In any event, today the patient commits to continued adherence with his medications as he acknowledges that he does feel that they have been helpful to him. 12/31 -potential signs of non compliance 12/30 and 12/31, consider further titration of haldol deaconate as appropriate to help ensure as full of dose being obtained as possible. maintained plan of haldol IM injections for non compliance of haldol po doses 01/05- Switch Haldol to liquid due to cheeking. 01/06 -second dose of Haldol Decanoate as above. Will taper off of oral Haldol over the next 30-60 days, and ideally maintain him on injectable medication given his history of cheeking and noncompliance with oral medication. He continues to refuse clozapine, could consider the addition of an injectable atypical antipsychotic if Haldol Decanoate is insufficient to control symptoms. 01/09 -taking Haldol liquid, but refusing clozapine. Meeting help with the county to discuss potential diversion options, during which patient was delusional and demonstrated very poor insight. (3) Substance abuse: 12/14 -patient is not forthcoming, but mother reports he has been abusing alcohol, cough syrup, diphenhydramine, and likely other substances. We will monitor for withdrawal symptoms, and as his psychosis improves, will provide psychoeducation about the risks of substance abuse and recommendations for abstinence. -Avoid controlled substances given high risk of abuse/misuse/negative outcomes. 12/15 -It is recognized that the patient has an extensive history of abusing chemical substances, and it is generally agreed that use of controlled substances does pose significant risk of abuse and other negative outcomes in the long-term. However, the patient's irritability and unwillingness to cooperate with essential medications, such as haloperidol, as well as his history of physical aggression towards others, may be mitigated by the temporary use of a benzodiazepine. Today, a single dose of lorazepam seems to have been effective in helping the patient maintain composure during an involuntary commitment hearing that did not go in his favor, and staff have noticed that he has been somewhat more cooperative today, possibly in response to the dose of lorazepam. Accordingly, staff will continue to offer the patient as needed lorazepam. 12/21 -admission drug screen was positive for benzodiazepines, with significantly elevated temazepam (> 2000) and elevated oxazepam levels. Although he denied taking benzodiazepines prior to admission, he clearly was accessing them somehow. 12/22 -the patient is able to give what may be referred to as "lip service" to the concept of abstinence from drugs of abuse, but he seems to have little or no insight into the risks associated with his abuse of mood altering chemical substances, particularly within the context of his psychiatric illness. Again, a whole will be to identify an aftercare placement that we will be able to monitor him more assiduously for access to abusable chemical substances, including prescription medications, alcohol, and other drugs of abuse. (4) Antisocial personality disorder: 12/14 -extensive, lifelong history provided by adoptive mother which reveals a pervasive pattern of disregard for and violation of the rights of others which started at age 8 or earlier, failure to conform to social norms with respect to lawful behaviors as indicated by repeatedly performing acts that are grounds for arrest, deceitfulness, impulsivity and failure to plan ahead, irritability and aggressiveness, reckless disregard for safety of self and others, consistent irresponsibility, and lack of remorse. 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 -Reviewed expectations with respect to behavior on the unit. 12/15 -The patient's history of antisocial behavior is noted, and antisocial personality will not be a focus of treatment during this hospitalization. However, the record indicates that the patient's antisocial behaviors, which are lifelong, are mitigated to some extent when he is being successfully treated for his psychotic disorder. Accordingly, the approach will be to address his antisocial behaviors by focusing on addressing his psychosis. 12/22 -The patient's long-standing history of antisocial behaviorbehavior which reportedly predates the onset of his symptoms of schizophreniahave not been a focus of treatment and are unlikely to change. Careful monitoring, diversion, containment to the degree possible, to containment of the most appropriate interventions for this problem. Inventory Assets Strengths: Good physical health. Able to form alliances with certain peers. Concerned and supportive parents. Needs: Continued adherence with psychiatric medications. Sustained recovery from psychotic features. Risk Factors Assessment Male: Yes : Yes Do You Have Access To A Gun?: No Health Problems: Yes Mental Health Diagnoses: Yes Substance Use Disorders: Yes Previous Attempt: No Previous Psychiatric Hospitalization: Yes Hopelessness: No Smoker: Yes Protective Factors Assessment Cheondoism Beliefs: No : No Responsible for Young Children: No Employed: No Stable Relationships: No Supportive Family: Yes Good Rapport with Provider: No Absence of Any Risk Factors Above: No Interval History Identifying Information APRIL GONZALEZ is a 43-year-old M who lives in [place] with his parents, has a history of a psychotic disorder (specific diagnosis not yet known, but history of multiple previous hospitalizations including a [facility] hospitalization in [place]), and was admitted on 12/14/18 03:41 on a 302 involuntary commitment for psychosis, treatment noncompliance, and erratic, unsafe behavior. He is on a 304 involuntary commitment as of 12/26/2018. Chief Complaint "I'm fine". Review of Systems Sleep Information Total Hours of Sleep: 8.25 Sleep Comments: pt given vistaril per rn. pt on q-15 minute checks Meal Information Percent Meal Consumed - Breakfast: 100 Percent Meal Consumed - Lunch: 100 Percent Meal Consumed - Dinner: 100 Nutrition Comment: pt. sleeping Subjective Subjective Patient was seen & assessed and interval progress reviewed with nursing and social work. Staff report he continues to refuse most groups, when he does attend does not participate, and isolates in his room. He continues to request frequent as needed medications, including hydroxyzine, lorazepam, and Tylenol. He has not received benztropine since 01/07/2019. He continues to refuse clozapine, but is taking the liquid Haldol daily. During safety checks, it was discovered that he had stolen numerous DVD movies and hidden them in a slipper, as well as 2 large bottles of Purell hand logistics team lead. Treatment planning meeting held today with social work, disposition, [facility] associate sales representative, and patient. Hospital treatment team and County in agreement that state hospitalization is primary recommendation, but as there is no bed date and reportedly a long wait list, would like to work on potential diversion plan as well in case he improved sufficiently to be discharged to the community. [facility] has concerns about his appropriateness for the CRR, stating he would have to have roommates and would be expected to attend day programming and work towards living independently. Patient reports he would prefer to return to the community, agreed to live in the CRR and attend daytime programming, but struggled to identify any goals for the future, stating "I don't have any goals, I'm very ill." He states that he has "a bone disease, DMZ, can't care for myself, I need help to get by." He continues to deny that he has a mental illness, and although he is aware he has been diagnosed with schizophrenia and schizoaffective disorder in the past, says "it's just a result of my drug use in [facility], it's not real." He says that psychotropic medications "don't work for me, they make they have 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 and go crazy," and says this is because he also has a bone disease that he refers to as "DMZ," which per his parents does not exist. He does not believe that any medications have ever helped him in the past, except for may be Vicodin, although it eventually caused worsening bone pain. Physical Exam Psychiatric Orientation: alert Apperance: appropriately dressed and + disheveled; + did not appear stated age Eye Contact: good eye contact Motor Behavior: steady gait and station and no abnormal motor movements Speech: normal rate/rhythm/volume of speech Give short answers. Affect: + blunted affect Mood: + irritable mood Thought Process: goal directed thought process and + concrete thought process Thought Content: + delusions (That he has a bone disease, which causes psychotropic medications to make him psychotic) Suicidal Thoughts: denies suicidal thoughts Homicidal Thoughts: denies homicidal thoughts Hallucinations: no auditory 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 and no visual 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 Cognition: attention grossly intact and language grossly intact Estimated Intelligence: average estimated intelligence Insight: + severely impaired insight Judgement: + severely impaired judgement Vital Signs (Past 24 Hours) Last Vital Signs Temp 36.3 C L 01/07/19 06:52 Pulse 98 H 01/07/19 06:53 Resp 18 01/07/19 06:52 BP 114/70 01/07/19 06:53 Pulse Ox 97 12/14/18 03:38 Results & Data Current Inpatient Medications Current Inpatient Medications: Current Inpatient Medications Acetaminophen (Tylenol) 650 mg PO Q4H PRN PRN Reason: Headache or Minor Fever Stop: 01/13/19 02:51 Last Admin: 01/08/19 21:10 Dose: 650 mg Documented by: Al Hydrox/Mg Hydrox/Simethicone (Maalox) 30 ml PO Q4H PRN PRN Reason: GI Upset Stop: 01/13/19 02:51 Benztropine Mesylate (Cogentin) 1 mg PO BID PRN PRN Reason: akathisia Stop: 01/26/19 20:59 Last Admin: 01/07/19 16:37 Dose: 1 mg Documented by: Bismuth Subsalicylate (Kaopectate) 15 ml PO PRN PRN PRN Reason: Loose Stool Stop: 01/13/19 02:51 Clozapine (Clozaril) 25 mg PO DAILY [facility] Stop: 02/06/19 08:59 Last Admin: 01/08/19 09:23 Dose: Not Given Documented by: Docusate Sodium (Colace) 100 mg PO HS PRN PRN Reason: constipation Stop: 01/23/19 21:59 Haloperidol Decanoate (Haldol Decanoate) 200 mg IM Q28D@0900 [facility] Stop: 02/18/19 08:59 Haloperidol Lactate (Haldol) 10 mg IM Q4 PRN PRN Reason: psychosis or agitation Stop: 01/13/19 03:55 Last Admin: 12/28/18 16:54 Dose: 10 mg Documented by: Haloperidol Lactate (Haldol) 10 mg IM 0900,1600 PRN PRN Reason: refusal of PO Stop: 01/20/19 09:56 Last Admin: 01/05/19 09:24 Dose: 10 mg Documented by: Haloperidol Lactate (Haldol Lactate) 10 mg PO QAM [facility] Stop: 02/05/19 08:59 Last Admin: 01/08/19 09:23 Dose: 10 mg Documented by: Haloperidol Lactate (Haldol Lactate) 10 mg PO Q4H PRN PRN Reason: Psychosis or agitation Stop: 02/05/19 08:50 Hydroxyzine HCl (Vistaril) 25 mg PO Q4H PRN PRN Reason: Anxiety Stop: 01/13/19 02:51 Last Admin: 01/08/19 13:53 Dose: 25 mg Documented by: Hydroxyzine HCl (Vistaril) 50 mg PO HSZ PRN PRN Reason: Insomnia Stop: 01/13/19 02:51 Last Admin: 01/08/19 21:10 Dose: 50 mg Documented by: Lorazepam (Ativan) 1 mg IM Q4 PRN PRN Reason: Agitation Stop: 01/13/19 03:54 Lorazepam (Ativan) 0.5 mg PO Q6H PRN PRN Reason: Agitation Stop: 01/13/19 14:59 Last Admin: 01/08/19 17:36 Dose: 0.5 mg Documented by: Magnesium Hydroxide (Milk Of Magnesia) 30 ml PO DAILY PRN PRN Reason: Heartburn Stop: 01/13/19 02:51 Menthol (Nice) 1 be BUCCAL Q2H PRN PRN Reason: Sore Throat Stop: 01/19/19 20:40 Last Admin: 12/20/18 20:52 Dose: 1 be Documented by: Miscellaneous (Remove Nicoderm Patch) 1 ea N/A DAILY@2100 [facility] Stop: 01/13/19 20:59 Last Admin: 01/08/19 20:29 Dose: Not Given Documented by: Nicotine (Nicoderm Cq) 21 mg TD QAM [facility] Stop: 01/13/19 08:59 Last Admin: 01/08/19 09:23 Dose: 21 mg Documented by: Nicotine Polacrilex (Nicorette 2mg) 1 piece MT UD PRN PRN Reason: Nicotine Withdrawal Stop: 01/13/19 08:20 Last Admin: 01/06/19 17:22 Dose: 1 piece Documented by: Sodium Chloride ([place] Nasal) 1 - 2 sprays NA PRN PRN PRN Reason: Nasal Dryness/Congestion Stop: 01/13/19 02:51 Post Discharge Appointments Primary Care Physician Name Of Family Doctor: Denies Therapist Name of Therapist: Denies Fill Manager Name of Fill Manager: [employer] Phone Number for Fill Manager: [phone] Case Management Appointment Comment: [address], [address], [place], [place] CPT Code CPT Code 72611
[2019-01-09] MEDS: cloZAPine 25 MG TAB PO SCH (08:40)
[2019-01-09] MEDS: NICOTINE 21 MG/24 HR TDSY TD SCH (08:52)
[2019-01-09] MEDS: HALOPERIDOL ORAL SOLN 2 MG/ML PO SCH (08:52)
[2019-01-09] MEDS: ACETAMINOPHEN 325 MG TAB PO PRN ×2 (08:53→15:31)
[2019-01-09] MEDS: LORazepam 0.5 MG TAB PO PRN ×2 (08:53→17:36)
[2019-01-10] MEDS ORDERED: BISMUTH SUBSALICYLATE PER ML OMNICELL CHARGE PO PRN (08:32)
[2019-01-10] MEDS ORDERED: HALOPERIDOL ORAL SOLN 2 MG/ML PO PRN (08:32)
[2019-01-10] MEDS ORDERED: COUGH DROP (SUGAR FREE) LOZ 24 LOZ/1 BOX BUCCAL PRN (08:32)
[2019-01-10] MEDS ORDERED: ALUMINUM/MAGNESIUM SUSP 30 ML UDC PO PRN (08:32)
[2019-01-10] MEDS ORDERED: HALOPERIDOL LACTATE 5 MG/ML 1 ML VIAL IM PRN ×2 (08:32)
[2019-01-10] MEDS ORDERED: MAGNESIUM HYDROXIDE SUSP 30 ML UDC PO PRN (08:32)
[2019-01-10] MEDS ORDERED: DOCUSATE SODIUM 100 MG CAP PO PRN (08:32)
[2019-01-10] MEDS ORDERED: SODIUM CHLORIDE 0.65% NA SOLN 45 ML (OCEAN) PRN (08:35)
[2019-01-10] MEDS: HALOPERIDOL ORAL SOLN 2 MG/ML PO SCH (08:49)
[2019-01-10] MEDS: NICOTINE 21 MG/24 HR TDSY TD SCH (08:51)
[2019-01-10] MEDS ORDERED: HALOPERIDOL DECANOATE INJ 50 MG/ML VIAL IM SCH (09:00)
[2019-01-10] MEDS: cloZAPine 25 MG TAB PO SCH (09:02)
[2019-01-10] MEDS: ACETAMINOPHEN 325 MG TAB PO PRN ×3 (09:19→17:56)
[2019-01-10] MEDS: LORazepam 0.5 MG TAB PO PRN (09:19)
--- NOTE | 2019-01-10 09:46 | Psychiatric Progress Note ---
Date of Service January 10, 2019 Impression / Recommendations Impression Condition unchanged, only minimal participation in treatment, continues to express delusions that he does not have a mental illness but has a painful bone disease called "DMZ,", and requesting frequent as needed medications. He is taking liquid Haldol, but refusing olanzapine, and spending a lot of time in bed or watching TV despite encouragement to attend groups. He has been referred to the [facility] given his inability to willingly participate in treatment, cheeking his meds, and complete lack of insight into his illness and the need for treatment, and we are still awaiting a bed date. (1) Schizophrenia: 12/14 -patient is a poor historian, but mother provides historical information. 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 For now we will collect psychosis not otherwise specified. -Patient is refusing to sign releases for previous outpatient providers in [place], and staff contacted them but they refused to provide any information without a signed release. -Medically necessary private room due to psychosis, erratic and disorganized behavior, history of violence, and aggressive behavior and threats to harm others here in the hospital. -Start haloperidol 5 mg twice daily, as patient has a previous good response to Haldol Decanoate and clozapine. Recommend medications over objection once he is on a 303 involuntary commitment and has been seen by a second physician, as he has severe psychotic symptoms which are preventing him from accurately interpreting reality, influencing his behavior, and placing him at risk of harm to both himself and others as he has been acting on his delusions, experiencing auditory and visual 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, paranoia, engaging in unsafe behaviors including driving when he does not have a license or the knowledge to do so, abusing substances, and has been threatening towards others. He demonstrates no insight into his condition, but available information indicates response to treatment with antipsychotic medications in the past. -Medically necessary private room due to psychosis, aggressive behavior, and threats to harm others. -We will need to check fasting lipid profile and glucose once he is cooperative. -Excused from groups from the time being until able to participate appropriately. -Refusing to sign releases for parents, but mother is petitioner, so can inform her of the 303 hearing. 12/15 -The patient did except a single dose of lorazepam this morning, and did seem to be somewhat more calm. He was mildly labile during his involuntary commitment hearing this morning, but managed to maintain control and was not aggressive during the hearing or upon learning that he had been retained by the retirement officer. Accordingly, we will continue to offer him lorazepam, since this medication in his case does not seem to be disinhibiting and, at least today, appeared to have helped him manage angry impulses during his involuntary commitment hearing. -The treatment team and I agree that, if possible, we would like to convince the patient to voluntarily take oral medications. Reports are that this morning he came close to taking oral haloperidol, but at the last minute declined. He is telling us that he will consistently refused medications, but our hope is that as we are able to gain his trust he will become more cooperative. We will continue to try to convince the patient to take oral haloperidol, but if this is unsuccessful we will seek two physician approval of medication over objection and give Haldol 5 mg IM BID. 12/16--tolerating Haldol, titrate to 10 mg BID. 12/18 - Continue haldol 10 mg bid - Continue discussion about LAMA - Encourage better sleep hygiene, staying awake in the day to promote sleep at night. 12/19 - Patient allowed labs to be drawn. FBS 93, FLP WNL with the exception of triglycerides of 186. Counseled to avoid fatty red meats, saturated fats. 12/20 -Again discussed the recommendations for long-acting injectable antipsychotic medication with the patient, which he initially declined because he said medications are poison. He has a meeting with his family this afternoon, and I will order the first loading dose of Haldol Decanoate 50 mg IM to be administered this afternoon, and if he is unwilling to take it, we will likely need to proceed with medications over objection tomorrow. We will try to encourage him to accept the intervention, as he reportedly did fairly well on this medication in the past. 12/21 -proceed with medications over objection: Haldol Decanoate 100 mg IM today, and Haldol 10 mg IM for refusal of oral Haldol. He will need 100-200 mg of Haldol Decanoate every 4 weeks based on his current oral dose, so will continue oral haloperidol for now until we can monitor response to the decanoate. 12/22 -the patient received Haldol Decanoate intramuscularly today, as a medication over objection. He tolerated the injection well, and today tells me that he "feels pretty good." -Today, the patient's associations seemed to be fairly tight on examination. He tends to be somewhat concrete in his thinking, but, as above, he did seem able to understand our rationale for continuing inpatient treatment at this point. 12/23 - tolerating halol dec w/o EPS or other complaints. will need to consider reduction of oral dose in approx 1 week. 12/24 - pt remains less acutely behaviorally disturbed since Haldol dec injection last however evidenced mild acting out when physically uncomfortable today - will add standing docusate 100mg po qhs and encourage oral hydration today for complaint of hard stool - meeting / [facility] services tomorrow to explore dispo options 12/25 - Increase in irritability - Planning meeting held with [facility]: possibility for CRR vs state hospital - Continue current meds and encourage prns 12/26 - 304 granted. Meeting with [facility], patient and parents held yesterday: parents confirmed he cannot return home. Treatment team and [facility] recommends state hospitalization, as patient not appropriate for CRR placement due to severity of symptoms and unwillingness for outpatient treatment and medi cations. 12/27 - Continue current medication regimen - Orders placed for necessary EKG, TB skin test to accompany [facility] referral - Place on high elopement precautions last evening due to suspicious loitering at the entryway of the unit - Reviewed records from [facility] - previous diagnoses were schizoaffective disorder and substance abuse 12/28 - Continue current medication regimen - EKG and PPD completed yesterday - PPD will need read on 12/30 12/29 -Add clozapine 12.5 mg BID and increase as tolerated by 25 mg per day to a dose of 300 mg daily (in two divided dosages, or all at bedtime).' 12/30 -titrating clozapine to 12.5 am and 25mg hs for 12/30 with plan to increase to 25mg bid on 12/31 and likely further titration if tolerating -maintained Haldol decanoate and Haldol po unchanged for now, with consideration of weaning Haldol po dose if clozapine is effective ,, although pt appears to have history of both Haldol forms being rx'd while on past clozapine med trial. Pt has been observed by staff to be improving as obtaining medication of haldol (including the immediate IM doses) 12/31 close monitoring for checking, continue plan above for IM Haldol over objection if checking haldol scheduled doses. Maintain clozapine dosing plan for now with potential re-considering clozapine plan if compklaince issues are occuring. Consider further titration of haldol decanoate as appropaite. 01/01 - Patient refusing Clozaril. Will leave in place, but not force meds over objection for refusal - Increase Haldol to 10 mg AM and 15 mg HS, with meds over objection for refusal - Continue [place]PR due to irritability and hx of violence 01/02 -continue oral haloperidol 10 mg every morning and 15 mg at bedtime (moved to later time to try to minimize sedation/spending excessive time in bed during the day), and Haldol decanoate, next injection due 01/19/2019. Continue Lorazepam as needed. -He continues to refuse clozapine. 01/03 - Continue current meds and plan - Continue MNPR in deference to history of violence toward others. 01/04 - Continue current meds and plan - Meeting scheduled with the [facility] to discuss disposition 01/05 - Change pills to liquid due to cheeking - Encourage patient to be out of bed and participating in his treatment - Planning meeting scheduled with the [facility] for next Saturday 01/06 -Patient agrees to a second Haldol Decanoate injection, 100 mg, with the hopes that we can taper him off oral haloperidol given his poor compliance. He has been on 25 mg p.o. daily, which is the equivalent of an initial dose of 500 mg decanoate (per UpToDate, dose of oral haloperidol > 10 mg and high risk of relapse, initiate dose at 20 times the daily oral dose). He got his initial Haldol Decanoate 100 mg on 12/22/2018. He will be due for his next injection on 01/19/2019, currently ordered for 200 mg, but may need to consider a higher dose given noncompliance with oral medication. Maintenance doses are typically 50- 200 mg. Will continue oral haloperidol liquid 10 mg every morning, but discontinue the 15 mg at bedtime dose. Oral haloperidol can be tapered over the period of the first 3 decanoate shots (60-90 days) depending on response. -Continue clozapine but decrease to 25 mg daily, as he has not been taking it, and continue to encourage him to try it, as it was reportedly beneficial in the past and stabilized him sufficiently to be [facility]. -Continue as needed medications (Lorazepam, benztropine, haloperidol, and hydroxyzine). 01/07 -continue current medications and plan. 01/08 - Continue current meds and plan - Diversion meeting with the [facility] scheduled for tomorrow. 01/09 -continue private room given antisocial behavior/stealing. Meeting held with the [facility], who do not feel he is appropriate for CRR placement and support state hospitalization. We have not yet received acceptance from [facility]. -Staff to search room daily and remove contraband, restrict patient's ability to keep items in his room due to repeated stealing and having access to items that could potentially be harmful, such as a large amount of hand map colorer. 01/10 -continue current plan. Coordinate with the [facility]. (2) Noncompliance with medications: 12/14 -stopped his medications 6 months ago and has decompensated since. Would benefit from a long-acting injectable, and either long-term inpatient treatment at the [facility] or involuntary outpatient treatment.. 12/15 -The patient's psychosis and severely impaired insight seem to be making him and accessible to reason, regarding the essential importance of psychiatric medications. There is a past history of favorable response to haloperidol as well as to clozapine. It is agreed that the patient would in all likelihood benefit from a long-acting injectable antipsychotic medication, given his history of recurrent medication nonadherence. 12/16--currently taking PO for a few doses, is on extended involuntary commitment and clearly ongoing schizophrenia which will fail to improve for him to be able to provide self-care without ongoing treatments on inpatient unit and medications over objection. Without antipsychotic medication he is at significant risk of /serious disability and a danger to himself/others. Dr. Srinivasan could provide second opinion if he refuses PO med. 12/18- Patient refusing to consider LAMA at this time. Will continue to encourage 12/21 -patient continues to refuse Haldol Decanoate, and is now also refusing oral Haldol. We will proceed with medications over objection, as he has a diagnosis of primary thought disorder, has benefited from Haldol Decanoate in the past, he is actively delusional and is refusing medications due to psychotic thought processes, and is at risk of harm to both himself and others if he remains untreated. He has a significant history of violence tied to his delusions, and it will be important to get his symptoms adequately managed to decrease the risk of violence towards others here in the hospital. 12/22 -medication adherence is most certainly going issue with this patient. We are recommending the continued use of Depo forms of antipsychotic medications, but, in the past, the patient has simply refused to return to the office of the healthcare professional who is administering the sectionas was the case last year when, after doing reasonably well, he stopped going for treatment, and stopped excepting medications. For this reason, we are carefully looking for a supportive living setting for this patient, preferably one that has the resources necessary to assist the resistant, not adherent to patient. 12/24 - remains better compliant with PO meds 12/25 - Takes meds when he thinks he needs them, but voiced some question about taking anything regularly after discharge. 12/29 -the patient refused a dose of haloperidol yesterday and received haloperidol 10 mg intramuscularly over objection from disease no holes were required and the patient was cooperative with the injection closed with disease. Afterwards, he wondered out loud why he had refused the medication, knowing that he would get it "one way or the other." Because the patient seemed to have responded well, in terms of his disorganized thinking, to the intramuscular dose of haloperidol, there has been some discussion in the team regarding the question of "cheeking" his oral medications. However, the explanation may be that haloperidol 10 mg IM is more potent than orally. In any event, today the patient commits to continued adherence with his medications as he acknowledges that he does feel that they have been helpful to him. 12/31 -potential signs of non compliance 12/30 and 12/31, consider further titration of haldol deaconate as appropriate to help ensure as full of dose being obtained as possible. maintained plan of haldol IM injections for non compliance of haldol po doses 01/05- Switch Haldol to liquid due to cheeking. 01/06 -second dose of Haldol Decanoate as above. Will taper off of oral Haldol over the next 30-60 days, and ideally maintain him on injectable medication given his history of cheeking and noncompliance with oral medication. He continues to refuse clozapine, could consider the addition of an injectable atypical antipsychotic if Haldol Decanoate is insufficient to control symptoms. 01/09 -taking Haldol liquid, but refusing clozapine. Meeting help with the county to discuss potential diversion options, during which patient was delusional and demonstrated very poor insight. He continues to state he would not take medications after discharge. (3) Substance abuse: 12/14 -patient is not forthcoming, but mother reports he has been abusing alcohol, cough syrup, diphenhydramine, and likely other substances. We will monitor for withdrawal symptoms, and as his psychosis improves, will provide psychoeducation about the risks of substance abuse and recommendations for abstinence. -Avoid controlled substances given high risk of abuse/misuse/negative outcomes. 12/15 -It is recognized that the patient has an extensive history of abusing chemical substances, and it is generally agreed that use of controlled substances does pose significant risk of abuse and other negative outcomes in the long-term. However, the patient's irritability and unwillingness to cooperate with essential medications, such as haloperidol, as well as his history of physical aggression towards others, may be mitigated by the temporary use of a benzodiazepine. Today, a single dose of lorazepam seems to have been effective in helping the patient maintain composure during an involuntary commitment hearing that did not go in his favor, and staff have noticed that he has been somewhat more cooperative today, possibly in response to the dose of lorazepam. Accordingly, staff will continue to offer the patient as needed lorazepam. 12/21 -admission drug screen was positive for benzodiazepines, with significantly elevated temazepam (> 2000) and elevated oxazepam levels. Although he denied taking benzodiazepines prior to admission, he clearly was accessing them somehow. 12/22 -the patient is able to give what may be referred to as "lip service" to the concept of abstinence from drugs of abuse, but he seems to have little or no insight into the risks associated with his abuse of mood altering chemical substances, particularly within the context of his psychiatric illness. Again, a whole will be to identify an aftercare placement that we will be able to monitor him more assiduously for access to abusable chemical substances, including prescription medications, alcohol, and other drugs of abuse. (4) Antisocial personality disorder: 12/14 -extensive, lifelong history provided by adoptive mother which reveals a pervasive pattern of disregard for and violation of the rights of others which started at age 8 or earlier, failure to conform to social norms with respect to lawful behaviors as indicated by repeatedly performing acts that are grounds for arrest, deceitfulness, impulsivity and failure to plan ahead, irritability and aggressiveness, reckless disregard for safety of self and others, consistent irresponsibility, and lack of remorse. 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 -Reviewed expectations with respect to behavior on the unit. 12/15 -The patient's history of antisocial behavior is noted, and antisocial personality will not be a focus of treatment during this hospitalization. However, the record indicates that the patient's antisocial behaviors, which are lifelong, are mitigated to some extent when he is being successfully treated for his psychotic disorder. Accordingly, the approach will be to address his antisocial behaviors by focusing on addressing his psychosis. 12/22 -The patient's long-standing history of antisocial behaviorbehavior which reportedly predates the onset of his symptoms of schizophreniahave not been a focus of treatment and are unlikely to change. Careful monitoring, diversion, containment to the degree possible, to containment of the most appropriate interventions for this problem. Inventory Assets Strengths: Good physical health. Able to form alliances with certain peers. Concerned and supportive parents. Needs: Continued adherence with psychiatric medications. Sustained recovery from psychotic features. Risk Factors Assessment Male: Yes : Yes Do You Have Access To A Gun?: No Health Problems: Yes Mental Health Diagnoses: Yes Substance Use Disorders: Yes Previous Attempt: No Previous Psychiatric Hospitalization: Yes Hopelessness: No Smoker: Yes Protective Factors Assessment Sikh Beliefs: No : No Responsible for Young Children: No Employed: No Stable Relationships: No Supportive Family: Yes Good Rapport with Provider: No Absence of Any Risk Factors Above: No Interval History Identifying Information APRIL GONZALEZ is a 43-year-old M who lives in [place] with his parents, has a history of a psychotic disorder (specific diagnosis not yet known, but history of multiple previous hospitalizations including a 1 year state hospitalization in [place]), and was admitted on 12/14/18 03:41 on a 302 involuntary commitment for psychosis, treatment noncompliance, and erratic, unsafe behavior. He is on a 304 involuntary commitment as of 12/26/2018. Chief Complaint "Okay". Review of Systems Sleep Information Total Hours of Sleep: 7 Sleep Comments: pt given vistaril per rn. pt on q-15 minute checks Meal Information Percent Meal Consumed - Breakfast: 100 Percent Meal Consumed - Lunch: 90 Percent Meal Consumed - Dinner: 100 Nutrition Comment: pt. sleeping Subjective Subjective Patient was seen & assessed and interval progress reviewed with Treatment Team. Staff report he continues to isolate in his room, although he did attend community meeting, continues to request frequent as needed medications for anxiety, and told staff and peers that he has a bone disease but no mental illness. He briefly attended a treatment planning meeting with the [facility] yesterday, but left part way through the meeting, stating he was in pain from his bone disease. His mother called staff and said the patient had contacted her after the meeting and told her that he was not going to go to any groups because of his "condition." She said that he has a long-standing delusion that he has a bone disease, as many years ago he fell down some stairs and had a medical workup which did not show anything other than degenerative disc disease, which she was told at that time was very common. Staff have repeatedly contacted the [facility] to clarify the status of his referral, which was made 13 days ago, but have not yet received formal acceptance or a bed date. On my assessment the patient was seen in his room, where he is returned to bed after breakfast. He denies mood and anxiety symptoms, 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, and paranoia. He continues to endorse delusions that he has a "bone condition," which prevents him from attending groups, working, or functioning, but later states that he would probably get a job if he was discharged. He denies thoughts of harming himself or anyone else. He asks for an update on the [facility] referral. Physical Exam Mental Examination Large white male appearing older than his stated age. Casually dressed, disheveled with limited grooming. Lying in bed in a darkened room, awake, in no acute distress. No abnormal movements. Fair eye contact. Calm and cooperative with the assessment. Speech is nonspontaneous, normal rate and volume. Mood is "good," and affect is flat. Thoughts are goal-directed. Denies SI, HI, 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, and paranoia. + Delusions that he has a bone disease "DMZ." Alert and oriented. Insight and judgment are severely impaired. Vital Signs (Past 24 Hours) Last Vital Signs Temp 36.3 C L 01/10/19 06:50 Pulse 103 H 01/10/19 06:51 Resp 18 01/10/19 06:50 BP 92/59 L 01/10/19 06:51 Pulse Ox 97 12/14/18 03:38 Results & Data Current Inpatient Medications Current Inpatient Medications: Current Inpatient Medications Acetaminophen (Tylenol) 650 mg PO Q4H PRN PRN Reason: Headache or Minor Fever Stop: 02/09/19 08:29 Last Admin: 01/10/19 09:19 Dose: 650 mg Documented by: Al Hydrox/Mg Hydrox/Simethicone (Maalox) 30 ml PO Q4H PRN PRN Reason: GI Upset Stop: 02/09/19 08:29 Benztropine Mesylate (Cogentin) 1 mg PO BID PRN PRN Reason: akathisia Stop: 02/09/19 08:29 Bismuth Subsalicylate (Kaopectate) 15 ml PO PRN PRN PRN Reason: Loose Stool Stop: 02/09/19 08:29 Clozapine (Clozaril) 25 mg PO DAILY [facility] Stop: 02/09/19 08:59 Last Admin: 01/10/19 09:02 Dose: Not Given Documented by: Docusate Sodium (Colace) 100 mg PO HS PRN PRN Reason: constipation Stop: 02/09/19 08:29 Haloperidol Decanoate (Haldol Decanoate) 200 mg IM Q28D@0900 [facility] Stop: 02/18/19 08:59 Haloperidol Lactate (Haldol Lactate) 10 mg PO QAM [facility] Stop: 02/05/19 08:59 Last Admin: 01/10/19 08:49 Dose: 10 mg Documented by: Haloperidol Lactate (Haldol Lactate) 10 mg PO Q4H PRN PRN Reason: Psychosis or agitation Stop: 02/09/19 08:29 Haloperidol Lactate (Haldol) 10 mg IM 0900,1600 PRN PRN Reason: refusal of PO Stop: 02/09/19 08:29 Haloperidol Lactate (Haldol) 10 mg IM Q4 PRN PRN Reason: psychosis or agitation Stop: 02/09/19 08:29 Hydroxyzine HCl (Vistaril) 25 mg PO Q4H PRN PRN Reason: Anxiety Stop: 02/09/19 08:29 Hydroxyzine HCl (Vistaril) 50 mg PO HSZ PRN PRN Reason: Insomnia Stop: 02/09/19 08:29 Lorazepam (Ativan) 1 mg IM Q4 PRN PRN Reason: Agitation Stop: 01/13/19 03:54 Lorazepam (Ativan) 0.5 mg PO Q8H PRN PRN Reason: Agitation Stop: 02/07/19 14:59 Last Admin: 01/10/19 09:19 Dose: 0.5 mg Documented by: Magnesium Hydroxide (Milk Of Magnesia) 30 ml PO DAILY PRN PRN Reason: Heartburn Stop: 02/09/19 08:29 Menthol (Nice) 1 be BUCCAL Q2H PRN PRN Reason: Sore Throat Stop: 02/09/19 08:29 Miscellaneous (Remove Nicoderm Patch) 1 ea N/A DAILY@2100 [facility] Stop: 02/09/19 20:59 Nicotine (Nicoderm Cq) 21 mg TD QAM [facility] Stop: 02/09/19 08:59 Last Admin: 01/10/19 08:51 Dose: Not Given Documented by: Nicotine Polacrilex (Nicorette 2mg) 1 piece MT UD PRN PRN Reason: Nicotine Withdrawal Stop: 02/09/19 08:34 Sodium Chloride ([place] Nasal) 1 - 2 sprays NA PRN PRN PRN Reason: Nasal Dryness/Congestion Stop: 02/09/19 08:34 Post Discharge Appointments Primary Care Physician Name Of Family Doctor: Denies Therapist Name of Therapist: Denies Grain Buyer Name of Grain Buyer: [employer] Phone Number for Grain Buyer: [phone] Case Management Appointment Comment: [address], [address], [place], [place] CPT Code CPT Code 63577
[2019-01-11] MEDS: LORazepam 0.5 MG TAB PO PRN ×2 (07:33→17:51)
[2019-01-11] MEDS: cloZAPine 25 MG TAB PO SCH (07:36)
[2019-01-11] MEDS: HALOPERIDOL ORAL SOLN 2 MG/ML PO SCH (07:36)
[2019-01-11] MEDS: NICOTINE 21 MG/24 HR TDSY TD SCH (07:37)
--- NOTE | 2019-01-11 13:25 | Psychiatric Progress Note ---
Date of Service January 11, 2019 Impression / Recommendations Impression The patient's condition remains unchanged. Has been retreating to bed the majority of the day reporting fatigue. He remains only minimally engaged in treatment, and frequently refuses invitation to join group programming. Patient continues to refuse ordered dose of clozapine but has been taking liquid Haldol each morning. Referral to [facility] remains in place due to inability to willingly participate in treatment, cheeking his meds, and complete lack of insight into his illness and the need for treatment, and we are still awaiting a bed date. In the meantime, will work with [facility] resources to develop an alternative plan for possible discharge should state hospitalization be delayed to the point that patient does not meet criteria - though state hospital referral remains the primary goal at this time. (1) Schizophrenia: 12/14 -patient is a poor historian, but mother provides historical information. 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 For now we will collect psychosis not otherwise specified. -Patient is refusing to sign releases for previous outpatient providers in [place], and staff contacted them but they refused to provide any information without a signed release. -Medically necessary private room due to psychosis, erratic and disorganized behavior, history of violence, and aggressive behavior and threats to harm others here in the hospital. -Start haloperidol 5 mg twice daily, as patient has a previous good response to Haldol Decanoate and clozapine. Recommend medications over objection once he is on a 303 involuntary commitment and has been seen by a second physician, as he has severe psychotic symptoms which are preventing him from accurately interpreting reality, influencing his behavior, and placing him at risk of harm to both himself and others as he has been acting on his delusions, experiencing auditory and visual 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, paranoia, engaging in unsafe behaviors including driving when he does not have a license or the knowledge to do so, abusing substances, and has been threatening towards others. He demonstrates no insight into his condition, but available information indicates response to treatment with antipsychotic medications in the past. -Medically necessary private room due to psychosis, aggressive behavior, and threats to harm others. -We will need to check fasting lipid profile and glucose once he is cooperative. -Excused from groups from the time being until able to participate appropriately. -Refusing to sign releases for parents, but mother is petitioner, so can inform her of the 303 hearing. 12/15 -The patient did except a single dose of lorazepam this morning, and did seem to be somewhat more calm. He was mildly labile during his involuntary commitment hearing this morning, but managed to maintain control and was not aggressive during the hearing or upon learning that he had been retained by the [employer] control officer. Accordingly, we will continue to offer him lorazepam, since this medication in his case does not seem to be disinhibiting and, at least today, appeared to have helped him manage angry impulses during his involuntary commitment hearing. -The treatment team and I agree that, if possible, we would like to convince the patient to voluntarily take oral medications. Reports are that this morning he came close to taking oral haloperidol, but at the last minute declined. He is telling us that he will consistently refused medications, but our hope is that as we are able to gain his trust he will become more cooperative. We will continue to try to convince the patient to take oral haloperidol, but if this is unsuccessful we will seek two physician approval of medication over objection and give Haldol 5 mg IM BID. 12/16--tolerating Haldol, titrate to 10 mg BID. 12/18 - Continue haldol 10 mg bid - Continue discussion about LAMA - Encourage better sleep hygiene, staying awake in the day to promote sleep at night. 12/19 - Patient allowed labs to be drawn. FBS 93, FLP WNL with the exception of triglycerides of 186. Counseled to avoid fatty red meats, saturated fats. 12/20 -Again discussed the recommendations for long-acting injectable antipsychotic medication with the patient, which he initially declined because he said medications are poison. He has a meeting with his family this afternoon, and I will order the first loading dose of Haldol Decanoate 50 mg IM to be administered this afternoon, and if he is unwilling to take it, we will likely need to proceed with medications over objection tomorrow. We will try to encourage him to accept the intervention, as he reportedly did fairly well on this medication in the past. 12/21 -proceed with medications over objection: Haldol Decanoate 100 mg IM today, and Haldol 10 mg IM for refusal of oral Haldol. He will need 100-200 mg of Haldol Decanoate every 4 weeks based on his current oral dose, so will continue oral haloperidol for now until we can monitor response to the decanoate. 12/22 -the patient received Haldol Decanoate intramuscularly today, as a medication over objection. He tolerated the injection well, and today tells me that he "feels pretty good." -Today, the patient's associations seemed to be fairly tight on examination. He tends to be somewhat concrete in his thinking, but, as above, he did seem able to understand our rationale for continuing inpatient treatment at this point. 12/23 - tolerating halol dec w/o EPS or other complaints. will need to consider reduction of oral dose in approx 1 week. 12/24 - pt remains less acutely behaviorally disturbed since Haldol dec injection last however evidenced mild acting out when physically uncomfortable today - will add standing docusate 100mg po qhs and encourage oral hydration today for complaint of hard stool - meeting / [facility] services tomorrow to explore dispo options 12/25 - Increase in irritability - Planning meeting held with [facility]: possibility for CRR vs state hospital - Continue current meds and encourage prns 12/26 - 304 granted. Meeting with [facility], patient and parents held yesterday: parents confirmed he cannot return home. Treatment team and [facility] recommends state hospitalization, as patient not appropriate for CRR placement due to severity of symptoms and unwillingness for outpatient treatment and medications. 12/27 - Continue current medication regimen - Orders placed for necessary EKG, TB skin test to accompany [place] referral - Place on high elopement precautions last evening due to suspicious loitering at the entryway of the unit - Reviewed records from [facility] - previous diagnoses were schizoaffective disorder and substance abuse 12/28 - Continue current medication regimen - EKG and PPD completed yesterday - PPD will need read on 12/30 12/29 -Add clozapine 12.5 mg BID and increase as tolerated by 25 mg per day to a dose of 300 mg daily (in two divided dosages, or all at bedtime).' 12/30 -titrating clozapine to 12.5 am and 25mg hs for 12/30 with plan to increase to 25mg bid on 12/31 and likely further titration if tolerating -maintained Haldol decanoate and Haldol po unchanged for now, with consideration of weaning Haldol po dose if clozapine is effective ,, although pt appears to have history of both Haldol forms being rx'd while on past clozapine med trial. Pt has been observed by staff to be improving as obtaining medication of haldol (including the immediate IM doses) 12/31 close monitoring for checking, continue plan above for IM Haldol over objection if checking haldol scheduled doses. Maintain clozapine dosing plan for now with potential re-considering clozapine plan if compklaince issues are occuring. Consider further titration of haldol decanoate as appropaite. 01/01 - Patient refusing Clozaril. Will leave in place, but not force meds over objection for refusal - Increase Haldol to 10 mg AM and 15 mg HS, with meds over objection for refusal - Continue MNPR due to irritability and hx of violence 01/02 -continue oral haloperidol 10 mg every morning and 15 mg at bedtime (moved to later time to try to minimize sedation/spending excessive time in bed during the day), and Haldol decanoate, next injection due 01/19/2019. Continue Lorazepam as needed. -He continues to refuse clozapine. 01/03 - Continue current meds and plan - Continue MNPR in deference to history of violence toward others. 01/04 - Continue current meds and plan - Meeting scheduled with the [facility] to discuss disposition 01/05 - Change pills to liquid due to cheeking - Encourage patient to be out of bed and participating in his treatment - Planning meeting scheduled with the [facility] for next Saturday 01/06 -Patient agrees to a second Haldol Decanoate injection, 100 mg, with the hopes that we can taper him off oral haloperidol given his poor compliance. He has been on 25 mg p.o. daily, which is the equivalent of an initial dose of 500 mg decanoate (per UpToDate, dose of oral haloperidol > 10 mg and high risk of relapse, initiate dose at 20 times the daily oral dose). He got his initial Haldol Decanoate 100 mg on 12/22/2018. He will be due for his next injection on 01/19/2019, currently ordered for 200 mg, but may need to consider a higher dose given noncompliance with oral medication. Maintenance doses are typically 50- 200 mg. Will continue oral haloperidol liquid 10 mg every morning, but discontinue the 15 mg at bedtime dose. Oral haloperidol can be tapered over the period of the first 3 decanoate shots (60-90 days) depending on response. -Continue clozapine but decrease to 25 mg daily, as he has not been taking it, and continue to encourage him to try it, as it was reportedly beneficial in the past and stabilized him sufficiently to be discharged from the [facility]. -Continue as needed medications (Lorazepam, benztropine, haloperidol, and hydroxyzine). 01/07 -continue current medications and plan. 01/08 - Continue current meds and plan - Diversion meeting with the [facility] scheduled for tomorrow. 01/09 -continue private room given antisocial behavior/stealing. Meeting held wi th the [facility], who do not feel he is appropriate for CRR placement and support state hospitalization. We have not yet received acceptance from [facility]. -Staff to search room daily and remove contraband, restrict patient's ability to keep items in his room due to repeated stealing and having access to items that could potentially be harmful, such as a large amount of hand mixer pigment. 01/10 -continue current plan. Coordinate with the [facility] hospital. 01/11 - Continue current plan, awaiting acceptance and bed date from the [facility] - Although this is preferred plan, will need to arrange alternative options for appropriate discharge should bed date surpass ongoing criteria for inpatient admission (2) Noncompliance with medications: 12/14 -stopped his medications 6 months ago and has decompensated since. Would benefit from a long-acting injectable, and either long-term inpatient treatment at the [facility] or involuntary outpatient treatment.. 12/15 -The patient's psychosis and severely impaired insight seem to be making him and accessible to reason, regarding the essential importance of psychiatric medications. There is a past history of favorable response to haloperidol as well as to clozapine. It is agreed that the patient would in all likelihood benefit from a long-acting injectable antipsychotic medication, given his history of recurrent medication nonadherence. 12/16--currently taking PO for a few doses, is on extended involuntary commitment and clearly ongoing schizophrenia which will fail to improve for him to be able to provide self-care without ongoing treatments on inpatient unit and medications over objection. Without antipsychotic medication he is at significant risk of /serious disability and a danger to himself/others. Dr. Srinivasan could provide second opinion if he refuses PO med. 12/18- Patient refusing to consider LAMA at this time. Will continue to encourage 12/21 -patient continues to refuse Haldol Decanoate, and is now also refusing oral Haldol. We will proceed with medications over objection, as he has a diagnosis of primary thought disorder, has benefited from Haldol Decanoate in the past, he is actively delusional and is refusing medications due to psychotic thought processes, and is at risk of harm to both himself and others if he remains untreated. He has a significant history of violence tied to his delusions, and it will be important to get his symptoms adequately managed to decrease the risk of violence towards others here in the hospital. 12/22 -medication adherence is most certainly going issue with this patient. We are recommending the continued use of Depo forms of antipsychotic medications, but, in the past, the patient has simply refused to return to the office of the healthcare professional who is administering the sectionas was the case last year when, after doing reasonably well, he stopped going for treatment, and stopped excepting medications. For this reason, we are carefully looking for a supportive living setting for this patient, preferably one that has the resources necessary to assist the resistant, not adherent to patient. 12/24 - remains better compliant with PO meds 12/25 - Takes meds when he thinks he needs them, but voiced some question about taking anything regularly after discharge. 12/29 -the patient refused a dose of haloperidol yesterday and received haloperidol 10 mg intramuscularly over objection from disease no holes were required and the patient was cooperative with the injection closed with disease. Afterwards, he wondered out loud why he had refused the medication, knowing that he would get it "one way or the other." Because the patient seemed to have responded well, in terms of his disorganized thinking, to the intramuscular dose of haloperidol, there has been some discussion in the team regarding the question of "cheeking" his oral medications. However, the explanation may be that haloperidol 10 mg IM is more potent than orally. In any event, today the patient commits to continued adherence with his medications as he acknowledges that he does feel that they have been helpful to him. 12/31 -potential signs of non compliance 12/30 and 12/31, consider further titration of haldol deaconate as appropriate to help ensure as full of dose being obtained as possible. maintained plan of haldol IM injections for non compliance of haldol po doses 01/05- Switch Haldol to liquid due to cheeking. 01/06 -second dose of Haldol Decanoate as above. Will taper off of oral Haldol over the next 30-60 days, and ideally maintain him on injectable medication given his history of cheeking and noncompliance with oral medication. He continues to refuse clozapine, could consider the addition of an injectable atypical antipsychotic if Haldol Decanoate is insufficient to control symptoms. 01/09 -taking Haldol liquid, but refusing clozapine. Meeting help with the county to discuss potential diversion options, during which patient was delusional and demonstrated very poor insight. He continues to state he would not take medications after discharge. (3) Substance abuse: 12/14 -patient is not forthcoming, but mother reports he has been abusing alcohol, cough syrup, diphenhydramine, and likely other substances. We will monitor for withdrawal symptoms, and as his psychosis improves, will provide psychoeducation about the risks of substance abuse and recommendations for abstinence. -Avoid controlled substances given high risk of abuse/misuse/negative outcomes. 12/15 -It is recognized that the patient has an extensive history of abusing chemical substances, and it is generally agreed that use of controlled substances does pose significant risk of abuse and other negative outcomes in the long-term. However, the patient's irritability and unwillingness to cooperate with essential medications, such as haloperidol, as well as his history of physical aggression towards others, may be mitigated by the temporary use of a benzodiazepine. Today, a single dose of lorazepam seems to have been effective in helping the patient maintain composure during an involuntary commitment hearing that did not go in his favor, and staff have noticed that he has been somewhat more cooperative today, possibly in response to the dose of lorazepam. Accordingly, staff will continue to offer the patient as needed lorazepam. 12/21 -admission drug screen was positive for benzodiazepines, with significantly elevated temazepam (> 2000) and elevated oxazepam levels. Although he denied taking benzodiazepines prior to admission, he clearly was accessing them somehow. 12/22 -the patient is able to give what may be referred to as "lip service" to the concept of abstinence from drugs of abuse, but he seems to have little or no insight into the risks associated with his abuse of mood altering chemical substances, particularly within the context of his psychiatric illness. Again, a whole will be to identify an aftercare placement that we will be able to monitor him more assiduously for access to abusable chemical substances, including prescription medications, alcohol, and other drugs of abuse. (4) Antisocial personality disorder: 12/14 -extensive, lifelong history provided by adoptive mother which reveals a pervasive pattern of disregard for and violation of the rights of others which started at age 8 or earlier, failure to conform to social norms with respect to lawful behaviors as indicated by repeatedly performing acts that are grounds for arrest, deceitfulness, impulsivity and failure to plan ahead, irritability and aggressiveness, reckless disregard for safety of self and others, consistent irresponsibility, and lack of remorse. 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 -Reviewed expectations with respect to behavior on the unit. 12/15 -The patient's history of antisocial behavior is noted, and antisocial personality will not be a focus of treatment during this hospitalization. However, the record indicates that the patient's antisocial behaviors, which are lifelong, are mitigated to some extent when he is being successfully treated for his psychotic disorder. Accordingly, the approach will be to address his antisocial behaviors by focusing on addressing his psychosis. 12/22 -The patient's long-standing history of antisocial behaviorbehavior which reportedly predates the onset of his symptoms of schizophreniahave not been a focus of treatment and are unlikely to change. Careful monitoring, diversion, containment to the degree possible, to containment of the most appropriate interventions for this problem. 01/11 - Pt made aware again of unit expectations. With evidence of patient stealing keys and causing damage to room items - he remains on a medically necessary private room. His room is to be searched twice daily to ensure any stolen, non-essential, or potentially hazardous items are not being accumulated to the point of causing potential harm. Continue to enforce clear boundaries. Inventory Assets Strengths: Good physical health. Able to form alliances with certain peers. Concerned and supportive parents. Needs: Continued adherence with psychiatric medications. Sustained recovery from psychotic features. Risk Factors Assessment Male: Yes : Yes Do You Have Access To A Gun?: No Health Problems: Yes Mental Health Diagnoses: Yes Substance Use Disorders: Yes Previous Attempt: No Previous Psychiatric Hospitalization: Yes Hopelessness: No Smoker: Yes Protective Factors Assessment Jewish Beliefs: No : No Responsible for Young Children: No Employed: No Stable Relationships: No Supportive Family: Yes Good Rapport with Provider: No Absence of Any Risk Factors Above: No Interval History Identifying Information APRIL GONZALEZ is a 43-year-old M who lives in [place] with his parents, has a history of a psychotic disorder (specific diagnosis not yet known, but history of multiple previous hospitalizations including a 1 year state hospitalization in [place]), and was admitted on 12/14/18 03:41 on a 302 involuntary commitment for psychosis, treatment noncompliance, and erratic, unsafe behavior. He is on a 304 involuntary commitment as of 12/26/2018. Chief Complaint "Fine..." Review of Systems Notes Constitutional: reports fatigue Cardiovascular: denied Respiratory: denied Gastrointestinal: denied Neurological: denied Psychiatric: denies symptoms other than stated above Total of at least 10 systems reviewed, pertinent positives as above and in HPI. Sleep Information Total Hours of Sleep: 7.25 Sleep Comments: pt given vistaril per rn. pt on q-15 minute checks Meal Information Percent Meal Consumed - Breakfast: 100 Percent Meal Consumed - Lunch: 100 Percent Meal Consumed - Dinner: 100 Nutrition Comment: pt. sleeping Subjective Subjective Patient was seen & assessed and interval progress reviewed with Nursing. Briefly discussed during report the events of yesterday regarding the patient's behavior on the unit. Reviewed plan for patient's room to be searched twice a day and to enforce that no unnecessary or potentially hazardous items remain in the patient's room. He remains on medically necessary private room. Pt was seen today to assess progress since admission. Patient states he is "fine" today, reporting that he is tired. Pt has been sleeping for the majority of the morning with the exception of meals. Patient states that he was less fatigued yesterday and was able to get to "I do not know about 3 or 4" of the activity/therapy groups. He has not attended any yet today, but was encouraged to remain out of bed for the remainder of the afternoon and engage in group programming. Reviewed patient's standing ordered clozapine, and he reports he continues to be uninterested in taking the medication. Patient denies any needs or concerns at this time. Physical Exam Psychiatric Orientation: alert, oriented x 3 and + guarded; + uncooperative Apperance: appropriately dressed and + disheveled Eye Contact: + fair eye contact Motor Behavior: no abnormal motor movements (observed while laying in bed) Speech: normal rate/rhythm/volume of speech (minimally productive) Affect: + blunted affect, + irritable affect, + constricted affect and mood congruent with affect Mood: + irritable mood; no depressed mood and no anxious mood "I'm fine" Thought Process: goal directed thought process and + concrete thought process; + thought process not clear or coherent Thought Content: reality based without delusions Suicidal Thoughts: denies suicidal thoughts Homicidal Thoughts: denies homicidal thoughts Hallucinations: no auditory 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 and no visual 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 Cognition: recent memory grossly intact, remote memory grossly intact, attention grossly intact and language grossly intact Estimated Intelligence: average estimated intelligence and consistent with education level Insight: + severely impaired insight Judgement: + severely impaired judgement Vital Signs (Past 24 Hours) Last Vital Signs Temp 36.3 C L 01/11/19 06:59 Pulse 85 01/11/19 06:59 Resp 18 01/11/19 06:59 BP 112/60 01/11/19 06:59 Pulse Ox 97 12/14/18 03:38 Results & Data Current Inpatient Medications Current Inpatient Medications: Current Inpatient Medications Acetaminophen (Tylenol) 650 mg PO Q4H PRN PRN Reason: Headache or Minor Fever Stop: 02/09/19 08:29 Last Admin: 01/10/19 17:56 Dose: 650 mg Documented by: Al Hydrox/Mg Hydrox/Simethicone (Maalox) 30 ml PO Q4H PRN PRN Reason: GI Upset Stop: 02/09/19 08:29 Benztropine Mesylate (Cogentin) 1 mg PO BID PRN PRN Reason: akathisia Stop: 02/09/19 08:29 Bismuth Subsalicylate (Kaopectate) 15 ml PO PRN PRN PRN Reason: Loose Stool Stop: 02/09/19 08:29 Clozapine (Clozaril) 25 mg PO DAILY KELLY Stop: 02/09/19 08:59 Last Admin: 01/11/19 07:36 Dose: Not Given Documented by: Docusate Sodium (Colace) 100 mg PO HS PRN PRN Reason: constipation Stop: 02/09/19 08:29 Haloperidol Decanoate (Haldol Decanoate) 200 mg IM Q28D@0900 [facility] Stop: 02/18/19 08:59 Haloperidol Lactate (Haldol Lactate) 10 mg PO QAM [facility] Stop: 02/05/19 08:59 Last Admin: 01/11/19 07:36 Dose: 10 mg Documented by: Haloperidol Lactate (Haldol Lactate) 10 mg PO Q4H PRN PRN Reason: Psychosis or agitation Stop: 02/09/19 08:29 Haloperidol Lactate (Haldol) 10 mg IM 0900,1600 PRN PRN Reason: refusal of PO Stop: 02/09/19 08:29 Haloperidol Lactate (Haldol) 10 mg IM Q4 PRN PRN Reason: psychosis or agitation Stop: 02/09/19 08:29 Hydroxyzine HCl (Vistaril) 25 mg PO Q4H PRN PRN Reason: Anxiety Stop: 02/09/19 08:29 Last Admin: 01/10/19 13:39 Dose: 25 mg Documented by: Hydroxyzine HCl (Vistaril) 50 mg PO HSZ PRN PRN Reason: Insomnia Stop: 02/09/19 08:29 Last Admin: 01/10/19 21:03 Dose: 50 mg Documented by: Lorazepam (Ativan) 1 mg IM Q4 PRN PRN Reason: Agitation Stop: 01/13/19 03:54 Lorazepam (Ativan) 0.5 mg PO Q8H PRN PRN Reason: Agitation Stop: 02/07/19 14:59 Last Admin: 01/11/19 07:33 Dose: 0.5 mg Documented by: Magnesium Hydroxide (Milk Of Magnesia) 30 ml PO DAILY PRN PRN Reason: Heartburn Stop: 02/09/19 08:29 Menthol (Nice) 1 be BUCCAL Q2H PRN PRN Reason: Sore Throat Stop: 02/09/19 08:29 Miscellaneous (Remove Nicoderm Patch) 1 ea N/A DAILY@2100 [facility] Stop: 02/09/19 20:59 Last Admin: 01/10/19 21:06 Dose: Not Given Documented by: Nicotine (Nicoderm Cq) 21 mg TD QAM [facility] Stop: 02/09/19 08:59 Last Admin: 01/11/19 07:37 Dose: Not Given Documented by: Nicotine Polacrilex (Nicorette 2mg) 1 piece MT UD PRN PRN Reason: Nicotine Withdrawal Stop: 02/09/19 08:34 Sodium Chloride ([place] Nasal) 1 - 2 sprays NA PRN PRN PRN Reason: Nasal Dryness/Congestion Stop: 02/09/19 08:34 Post Discharge Appointments Primary Care Physician Name Of Family Doctor: Denies Therapist Name of Therapist: Denies 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
[2019-01-11] MEDS: NICOTINE POLACRILEX 2 MG GUM MT PRN (20:42)
[2019-01-11] MEDS: ACETAMINOPHEN 325 MG TAB PO PRN (21:01)
--- NOTE | 2019-01-12 09:46 | Psychiatric Progress Note ---
Date of Service January 12, 2019 Impression / Recommendations Impression The patient's condition remains unchanged. He continues to refuse to engage in treatment aside from compliance with scheduled haloperidol. Pt refusing groups yesterday and today, reporting plan to sleep until he is discharged. Will discontinue clozapine and weekly blood draws, as he has consistently refused the scheduled medications since its initiation. Given significant risk of harm to self or others if discharged to a setting without adequate aftercare and supervision, plan remains for patient to remain in 24-hour supervised treatment [facility]. There is great concern about the patient's ability to function, not only taking care of his personal needs, but also to participate in a non-destructive manner if re-integrated into the community. If unable to solidify [facility] hospital placement, he will require arrangement of extensive outpatient community supports in order to maintain a level of care necessary for him to succeed in the outpatient setting. At this time, ongoing inpatient mental health treatment and 24-hour supervision is medically necessary due to unwillingness to participate in treatment, inappropriate deceptive behavior on the unit, lack of insight into the severity of his condition, and ongoing risk of harm to self or others if discharged without an adequate safety and aftercare plan. (1) Schizophrenia: 12/14 -patient is a poor historian, but mother provides historical information. 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 For now we will collect psychosis not otherwise specified. -Patient is refusing to sign releases for previous outpatient providers in [place], and staff contacted them but they refused to provide any information without a signed release. -Medically necessary private room due to psychosis, erratic and disorganized behavior, history of violence, and aggressive behavior and threats to harm others here in the hospital. -Start haloperidol 5 mg twice daily, as patient has a previous good response to Haldol Decanoate and clozapine. Recommend medications over objection once he is on a 303 involuntary commitment and has been seen by a second physician, as he has severe psychotic symptoms which are preventing him from accurately interpreting reality, influencing his behavior, and placing him at risk of harm to both himself and others as he has been acting on his delusions, experiencing auditory and visual 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, paranoia, engaging in unsafe behaviors including driving when he does not have a license or the knowledge to do so, abusing substances, and has been threatening towards others. He demonstrates no insight into his condition, but available information indicates response to t reatment with antipsychotic medications in the past. -Medically necessary private room due to psychosis, aggressive behavior, and threats to harm others. -We will need to check fasting lipid profile and glucose once he is cooperative. -Excused from groups from the time being until able to participate appropriately. -Refusing to sign releases for parents, but mother is petitioner, so can inform her of the 303 hearing. 12/15 -The patient did except a single dose of lorazepam this morning, and did seem to be somewhat more calm. He was mildly labile during his involuntary commitment hearing this morning, but managed to maintain control and was not aggressive during the hearing or upon learning that he had been retained by the food safety officer. Accordingly, we will continue to offer him lorazepam, since this medication in his case does not seem to be disinhibiting and, at least today, appeared to have helped him manage angry impulses during his involuntary commitment hearing. -The treatment team and I agree that, if possible, we would like to convince the patient to voluntarily take oral medications. Reports are that this morning he came close to taking oral haloperidol, but at the last minute declined. He is telling us that he will consistently refused medications, but our hope is that as we are able to gain his trust he will become more cooperative. We will continue to try to convince the patient to take oral haloperidol, but if this is unsuccessful we will seek two physician approval of medication over objection and give Haldol 5 mg IM BID. 12/16--tolerating Haldol, titrate to 10 mg BID. 12/18 - Continue haldol 10 mg bid - Continue discussion about LAMA - Encourage better sleep hygiene, staying awake in the day to promote sleep at night. 12/19 - Patient allowed labs to be drawn. FBS 93, FLP WNL with the exception of triglycerides of 186. Counseled to avoid fatty red meats, saturated fats. 12/20 -Again discussed the recommendations for long-acting injectable antipsychotic medication with the patient, which he initially declined because he said medications are poison. He has a meeting with his family this afternoon, and I will order the first loading dose of Haldol Decanoate 50 mg IM to be administered this afternoon, and if he is unwilling to take it, we will likely need to proceed with medications over objection tomorrow. We will try to encourage him to accept the intervention, as he reportedly did fairly well on this medication in the past. 12/21 -proceed with medications over objection: Haldol Decanoate 100 mg IM today, and Haldol 10 mg IM for refusal of oral Haldol. He will need 100-200 mg of Haldol Decanoate every 4 weeks based on his current oral dose, so will continue oral haloperidol for now until we can monitor response to the decanoate. 12/22 -the patient received Haldol Decanoate intramuscularly today, as a medication over objection. He tolerated the injection well, and today tells me that he "feels pretty good." -Today, the patient's associations seemed to be fairly tight on examination. He tends to be somewhat concrete in his thinking, but, as above, he did seem able to understand our rationale for continuing inpatient treatment at this point. 12/23 - tolerating halol dec w/o EPS or other complaints. will need to consider reduction of oral dose in approx 1 week. 12/24 - pt remains less acutely behaviorally disturbed since Haldol dec injection last however evidenced mild acting out when physically uncomfortable today - will add standing docusate 100mg po qhs and encourage oral hydration today for complaint of hard stool - meeting w/ [facility] tomorrow to explore dispo options 12/25 - Increase in irritability - Planning meeting held with [facility]: possibility for CRR vs state hospital - Continue current meds and encourage prns 12/26 - 304 granted. Meeting with [facility], patient and parents held yesterday: parents confirmed he cannot return home. Treatment team and [facility] recommends state hospitalization, as patient not appropriate for CRR placement due to severity of symptoms and unwillingness for outpatient treatment and medications. 12/27 - Continue current medication regimen - Orders placed for necessary EKG, TB skin test to accompany [place] referral - Place on high elopement precautions last evening due to suspicious loitering at the entryway of the unit - Reviewed records from [place] [facility] - previous diagnoses were schizoaffective disorder and substance abuse 12/28 - Continue current medication regimen - EKG and PPD completed yesterday - PPD will need read on 12/30 12/29 -Add clozapine 12.5 mg BID and increase as tolerated by 25 mg per day to a dose of 300 mg daily (in two divided dosages, or all at bedtime).' 12/30 -titrating clozapine to 12.5 am and 25mg hs for 12/30 with plan to increase to 25mg bid on 12/31 and likely further titration if tolerating -maintained Haldol decanoate and Haldol po unchanged for now, with consideration of weaning Haldol po dose if clozapine is effective ,, although pt appears to have history of both Haldol forms being rx'd while on past clozapine med trial. Pt has been observed by staff to be improving as obtaining medication of haldol (including the immediate IM doses) 12/31 close monitoring for checking, continue plan above for IM Haldol over objection if checking haldol scheduled doses. Maintain clozapine dosing plan for now with potential re-considering clozapine plan if compklaince issues are occuring. Consider further titration of haldol decanoate as appropaite. 01/01 - Patient refusing Clozaril. Will leave in place, but not force meds over objection for refusal - Increase Haldol to 10 mg AM and 15 mg HS, with meds over objection for refusal - Continue MNPR due to irritability and hx of violence 01/02 -continue oral haloperidol 10 mg every morning and 15 mg at bedtime (moved to later time to try to minimize sedation/spending excessive time in bed during the day), and Haldol decanoate, next injection due 01/19/2019. Continue Lorazepam as needed. -He continues to refuse clozapine. 01/03 - Continue current meds and plan - Continue MNPR in deference to history of violence toward others. 01/04 - Continue current meds and plan - Meeting scheduled with the [facility] to discuss disposition 01/05 - Change pills to liquid due to cheeking - Encourage patient to be out of bed and participating in his treatment - Planning meeting scheduled with the [facility] for next Saturday 01/06 -Patient agrees to a second Haldol Decanoate injection, 100 mg, with the hopes that we can taper him off oral haloperidol given his poor compliance. He has been on 25 mg p.o. daily, which is the equivalent of an initial dose of 500 mg decanoate (per UpToDate, dose of oral haloperidol > 10 mg and high risk of relapse, initiate dose at 20 times the daily oral dose). He got his initial Haldol Decanoate 100 mg on 12/22/2018. He will be due for his next injection on 01/19/2019, currently ordered for 200 mg, but may need to consider a higher dose given noncompliance with oral medication. Maintenance doses are typically 50- 200 mg. Will continue oral haloperidol liquid 10 mg every morning, but discontinue the 15 mg at bedtime dose. Oral haloperidol can be tapered over the period of the first 3 decanoate shots (60-90 days) depending on response. -Continue clozapine but decrease to 25 mg daily, as he has not been taking it, and continue to encourage him to try it, as it was reportedly beneficial in the past and stabilized him sufficiently [facility]. -Continue as needed medications (Lorazepam, benztropine, haloperidol, and hydroxyzine). 01/07 -continue current medications and plan. 01/08 - Continue current meds and plan - Diversion meeting with the [facility] scheduled for tomorrow. 01/09 -continue private room given antisocial behavior/stealing. Meeting held with the [facility], who do not feel he is appropriate for CRR placement and support state hospitalization. We have not yet received acceptance from [facility]. -Staff to search room daily and remove contraband, restrict patient's ability to keep items in his room due to repeated stealing and having access to items that could potentially be harmful, such as a large amount of hand teaching assistant. 01/10 -continue current plan. [facility]ordinate [facility]. 01/11 - Continue current plan, awaiting acceptance and bed date from [facility] - Although this is preferred plan, will need to arrange alternative options for appropriate discharge should bed date surpass ongoing criteria for inpatient admission 01/12 - Continue haloperidol 10mg qAM with scheduled injections of haloperidol decanoate - Given significant period of refusing scheduled clozapine - will cancel the medication and scheduled CBC blood draws - Awaiting [facility] to [facility] and projected bed date - Continuing to work with [facility] should alternative arrangements be needed (2) Noncompliance with medications: 12/14 -stopped his medications 6 months ago and has decompensated since. Would benefit from a long-acting injectable, and either long-term inpatient treatment [facility] or involuntary outpatient treatment.. 12/15 -The patient's psychosis and severely impaired insight seem to be making him and accessible to reason, regarding the essential importance of psychiatric medications. There is a past history of favorable response to haloperidol as well as to clozapine. It is agreed that the patient would in all likelihood benefit from a long-acting injectable antipsychotic medication, given his history of recurrent medication nonadherence. 12/16--currently taking PO for a few doses, is on extended involuntary commitment and clearly ongoing schizophrenia which will fail to improve for him to be able to provide self-care without ongoing treatments on inpatient unit and medications over objection. Without antipsychotic medication he is at significant risk of /serious disability and a danger to himself/others. Dr. Srinivasan could provide second opinion if he refuses PO med. 12/18- Patient refusing to consider LAMA at this time. Will continue to encourage 12/21 -patient continues to refuse Haldol Decanoate, and is now also refusing oral Haldol. We will proceed with medications over objection, as he has a diagnosis of primary thought disorder, has benefited from Haldol Decanoate in the past, he is actively delusional and is refusing medications due to psychotic thought processes, and is at risk of harm to both himself and others if he remains untreated. He has a significant history of violence tied to his delusions, and it will be important to get his symptoms adequately managed to d ecrease the risk of violence towards others here in the hospital. 12/22 -medication adherence is most certainly going issue with this patient. We are recommending the continued use of Depo forms of antipsychotic medications, but, in the past, the patient has simply refused to return to the office of the healthcare professional who is administering the sectionas was the case last year when, after doing reasonably well, he stopped going for treatment, and stopped excepting medications. For this reason, we are carefully looking for a supportive living setting for this patient, preferably one that has the resources necessary to assist the resistant, not adherent to patient. 12/24 - remains better compliant with PO meds 12/25 - Takes meds when he thinks he needs them, but voiced some question about taking anything regularly after discharge. 12/29 -the patient refused a dose of haloperidol yesterday and received haloperidol 10 mg intramuscularly over objection from disease no holes were required and the patient was cooperative with the injection closed with disease. Afterwards, he wondered out loud why he had refused the medication, knowing that he would get it "one way or the other." Because the patient seemed to have responded well, in terms of his disorganized thinking, to the intramuscular dose of haloperidol, there has been some discussion in the team regarding the questio n of "cheeking" his oral medications. However, the explanation may be that haloperidol 10 mg IM is more potent than orally. In any event, today the patient commits to continued adherence with his medications as he acknowledges that he does feel that they have been helpful to him. 12/31 -potential signs of non compliance 12/30 and 12/31, consider further titration of haldol deaconate as appropriate to help ensure as full of dose being obtained as possible. maintained plan of haldol IM injections for non compliance of haldol po doses 01/05- Switch Haldol to liquid due to cheeking. 01/06 -second dose of Haldol Decanoate as above. Will taper off of oral Haldol over the next 30-60 days, and ideally maintain him on injectable medication given his history of cheeking and noncompliance with oral medication. He continues to refuse clozapine, could consider the addition of an injectable atypical antipsychotic if Haldol Decanoate is insufficient to control symptoms. 01/09 -taking Haldol liquid, but refusing clozapine. Meeting help with the county to discuss potential diversion options, during which patient was delusional and demonstrated very poor insight. He continues to state he would not take medications after discharge. 01/12 - Given consistent refusal of scheduled clozapine since its initial administration, will discontinue scheduled dose as well as scheduled blood draws for CBCs (3) Substance abuse: 12/14 -patient is not forthcoming, but mother reports he has been abusing alcohol, cough syrup, diphenhydramine, and likely other substances. We will monitor for withdrawal symptoms, and as his psychosis improves, will provide psychoeducation about the risks of substance abuse and recommendations for abstinence. -Avoid controlled substances given high risk of abuse/misuse/negative outcomes. 12/15 -It is recognized that the patient has an extensive history of abusing chemical substances, and it is generally agreed that use of controlled substances does pose significant risk of abuse and other negative outcomes in the long-term. However, the patient's irritability and unwillingness to cooperate with essential medications, such as haloperidol, as well as his history of physical aggression towards others, may be mitigated by the temporary use of a benzodiazepine. Today, a single dose of lorazepam seems to have been effective in helping the patient maintain composure during an involuntary commitment hearing that did not go in his favor, and staff have noticed that he has been somewhat more cooperative today, possibly in response to the dose of lorazepam. Accordingly, staff will continue to offer the patient as needed lorazepam. 12/21 -admission drug screen was positive for benzodiazepines, with significantly elevated temazepam (> 2000) and elevated oxazepam levels. Although he denied taking benzodiazepines prior to admission, he clearly was accessing them somehow. 12/22 -the patient is able to give what may be referred to as "lip service" to the concept of abstinence from drugs of abuse, but he seems to have little or no insight into the risks associated with his abuse of mood altering chemical substances, particularly within the context of his psychiatric illness. Again, a whole will be to identify an aftercare placement that we will be able to monitor him more assiduously for access to abusable chemical substances, including prescription medications, alcohol, and other drugs of abuse. (4) Antisocial personality disorder: 12/14 -extensive, lifelong history provided by adoptive mother which reveals a pervasive pattern of disregard for and violation of the rights of others which started at age 8 or earlier, failure to conform to social norms with respect to lawful behaviors as indicated by repeatedly performing acts that are grounds for arrest, deceitfulness, impulsivity and failure to plan ahead, irritability and aggressiveness, reckless disregard for safety of self and others, consistent irresponsibility, and lack of remorse. 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 -Reviewed expectations with respect to behavior on the unit. 12/15 -The patient's history of antisocial behavior is noted, and antisocial personality will not be a focus of treatment during this hospitalization. However, the record indicates that the patient's antisocial behaviors, which are lifelong, are mitigated to some extent when he is being successfully treated for his psychotic disorder. Accordingly, the approach will be to address his antisocial behaviors by focusing on addressing his psychosis. 12/22 -The patient's long-standing history of antisocial behaviorbehavior which reportedly predates the onset of his symptoms of schizophreniahave not been a focus of treatment and are unlikely to change. Careful monitoring, diversion, containment to the degree possible, to containment of the most appropriate interventions for this problem. 01/11 - Pt made aware again of unit expectations. With evidence of patient stealing keys and causing damage to room items - he remains on a medically necessary private room. His room is to be searched twice daily to ensure any stolen, non-essential, or potentially hazardous items are not being accumulated to the point of causing potential harm. Continue to enforce clear boundaries. Inventory Assets Strengths: Good physical health. Able to form alliances with certain peers. Concerned and supportive parents. Needs: Continued adherence with psychiatric medications. Sustained recovery from psychotic features. Risk Factors Assessment Male: Yes : Yes Do You Have Access To A Gun?: No Health Problems: Yes Mental Health Diagnoses: Yes Substance Use Disorders: Yes Previous Attempt: No Previous Psychiatric Hospitalization: Yes Hopelessness: No Smoker: Yes Protective Factors Assessment Mormonism Beliefs: No : No Responsible for Young Children: No Employed: No Stable Relationships: No Supportive Family: Yes Good Rapport with Provider: No Absence of Any Risk Factors Above: No Interval History Identifying Information APRIL GONZALEZ is a 43-year-old M who lives in [place] with his parents, has a history of a psychotic disorder (specific diagnosis not yet known, but history of multiple previous hospitalizations including a 1 year state hospitalization in [place]), and was admitted on 12/14/18 03:41 on a 302 involuntary commitment for psychosis, treatment noncompliance, and erratic, unsafe behavior. He is on a 304 involuntary commitment as of 12/26/2018. Chief Complaint "I'm napping and just laying in bed, both." Review of Systems Notes Constitutional: reports fatigue Cardiovascular: denied Respiratory: denied Gastrointestinal: denied Neurological: denied Psychiatric: denies symptoms other than stated above Total of at least 10 systems reviewed, pertinent positives as above and in HPI. Sleep Information Total Hours of Sleep: 7.5 Sleep Comments: came to kitchen for a drink and back to bed. Meal Information Percent Meal Consumed - Breakfast: 100 Percent Meal Consumed - Lunch: 100 Percent Meal Consumed - Dinner: 100 Nutrition Comment: pt. sleeping Subjective Subjective Patient was seen & assessed and interval progress reviewed with Treatment Team. Staff reports the patient appears to be compliant with behavioral expectations set since discovering his suspicious behavior on the unit. He has continued to take scheduled dose of haloperidol, but has continuously refused scheduled dose of clozapine. Dis[facility] to [facility], though not updates on acceptance or bed date as of treatment team meeting. Pt was seen today to assess progress since admission. Pt states he is "tired" today, planning to "nap, just sleep until I leave." Pt was only superficially cooperative with a conversation encouraging him to attend activity groups or find tasks in the group room he may enjoy. He was encouraged to be out of bed today, even if not attending groups or engaging with peers at this point. Pt reported he had no interest in this. Pt denied any additional needs from staff. When educated on concern about excessive sleeping and altering day/night patterns - patient states, "I have a condition, I already told you all this." Despite ongoing belief he has a bone condition, he reports to this provider that he believes his thoughts are clear and denies any concerns regarding safety or paranoia. Pt denies other needs at this time. Physical Exam Psychiatric Orientation: alert, oriented x 3 and + guarded; + uncooperative Apperance: appropriately dressed and + disheveled Eye Contact: + poor eye contact (fdc through interview turning to face away from this provider) Motor Behavior: steady gait and station (while walking laps after our initial interaction) and no abnormal motor movements (observed while laying in bed) Speech: normal rate/rhythm/volume of speech (minimally productive, irritable tone); no pressured speech Affect: + flat affect, + irritable affect, + constricted affect and mood congruent with affect Mood: + irritable mood; no depressed mood and no anxious mood "I'm fine" Thought Process: goal directed thought process (though goal is to remain in bed until discharge) and + concrete thought process; + thought process not clear or coherent Thought Content: + preoccupation (with desire to sleep and bone condition), + cognitive distortions, reality based without delusions and + delusions (again mentions his bone "condition"); not paranoid Suicidal Thoughts: denies suicidal thoughts Homicidal Thoughts: denies homicidal thoughts Hallucinations: no auditory 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 and no visual 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 Cognition: recent memory grossly intact, remote memory grossly intact, attention grossly intact and language grossly intact Estimated Intelligence: consistent with education level Insight: + severely impaired insight Judgement: + severely impaired judgement Vital Signs (Past 24 Hours) Last Vital Signs Temp 36.3 C L 01/11/19 06:59 Pulse 85 01/11/19 06:59 Resp 18 01/11/19 06:59 BP 112/60 01/11/19 06:59 Pulse Ox 97 12/14/18 03:38 Results & Data Current Inpatient Medications Current Inpatient Medications: Current Inpatient Medications Acetaminophen (Tylenol) 650 mg PO Q4H PRN PRN Reason: Headache or Minor Fever Stop: 02/09/19 08:29 Last Admin: 01/11/19 21:01 Dose: 650 mg Documented by: Al Hydrox/Mg Hydrox/Simethicone (Maalox) 30 ml PO Q4H PRN PRN Reason: GI Upset Stop: 02/09/19 08:29 Benztropine Mesylate (Cogentin) 1 mg PO BID PRN PRN Reason: akathisia Stop: 02/09/19 08:29 Bismuth Subsalicylate (Kaopectate) 15 ml PO PRN PRN PRN Reason: Loose Stool Stop: 02/09/19 08:29 Docusate Sodium (Colace) 100 mg PO HS PRN PRN Reason: constipation Stop: 02/09/19 08:29 Haloperidol Decanoate (Haldol Decanoate) 200 mg IM Q28D@0900 [facility] Stop: 02/18/19 08:59 Haloperidol Lactate (Haldol Lactate) 10 mg PO QAM [facility] Stop: 02/05/19 08:59 Last Admin: 01/11/19 07:36 Dose: 10 mg Documented by: Haloperidol Lactate (Haldol Lactate) 10 mg PO Q4H PRN PRN Reason: Psychosis or agitation Stop: 02/09/19 08:29 Haloperidol Lactate (Haldol) 10 mg IM 0900,1600 PRN PRN Reason: refusal of PO Stop: 02/09/19 08:29 Haloperidol Lactate (Haldol) 10 mg IM Q4 PRN PRN Reason: psychosis or agitation Stop: 02/09/19 08:29 Hydroxyzine HCl (Vistaril) 25 mg PO Q4H PRN PRN Reason: Anxiety Stop: 02/09/19 08:29 Last Admin: 01/12/19 06:52 Dose: 25 mg Documented by: Hydroxyzine HCl (Vistaril) 50 mg PO HSZ PRN PRN Reason: Insomnia Stop: 02/09/19 08:29 Last Admin: 01/11/19 21:02 Dose: 50 mg Documented by: Lorazepam (Ativan) 1 mg IM Q4 PRN PRN Reason: Agitation Stop: 01/13/19 03:54 Lorazepam (Ativan) 0.5 mg PO Q8H PRN PRN Reason: Agitation Stop: 02/07/19 14:59 Last Admin: 01/11/19 17:51 Dose: 0.5 mg Documented by: Magnesium Hydroxide (Milk Of Magnesia) 30 ml PO DAILY PRN PRN Reason: Heartburn Stop: 02/09/19 08:29 Menthol (Nice) 1 be BUCCAL Q2H PRN PRN Reason: Sore Throat Stop: 02/09/19 08:29 Miscellaneous (Remove Nicoderm Patch) 1 ea N/A DAILY@2100 [facility] Stop: 02/09/19 20:59 Last Admin: 01/11/19 20:44 Dose: Not Given Documented by: Nicotine (Nicoderm Cq) 21 mg TD QAM [facility] Stop: 02/09/19 08:59 Last Admin: 01/11/19 07:37 Dose: Not Given Documented by: Nicotine Polacrilex (Nicorette 2mg) 1 piece MT UD PRN PRN Reason: Nicotine Withdrawal Stop: 02/09/19 08:34 Last Admin: 01/11/19 20:42 Dose: 1 piece Documented by: Sodium Chloride (Collier Nasal) 1 - 2 sprays NA PRN PRN PRN Reason: Nasal Dryness/Congestion Stop: 02/09/19 08:34 Post Discharge Appointments Primary Care Physician Name Of Family Doctor: Denies Therapist Name of Therapist: Denies Test Data Developer Name of Test Data Developer: [employer] Phone Number for Test Data Developer: [phone] Case Management Appointment Comment: [address] [facility], [address], [place], [place] CPT Code CPT Code 95320
[2019-01-12] MEDS: NICOTINE 21 MG/24 HR TDSY TD SCH (10:04)
[2019-01-12] MEDS: HALOPERIDOL ORAL SOLN 2 MG/ML PO SCH (10:04)
[2019-01-12] MEDS: LORazepam 0.5 MG TAB PO PRN (11:23)
[2019-01-12] MEDS: ACETAMINOPHEN 325 MG TAB PO PRN ×2 (11:23→18:03)
[2019-01-13] MEDS: HALOPERIDOL ORAL SOLN 2 MG/ML PO SCH (09:32)
[2019-01-13] MEDS: NICOTINE 21 MG/24 HR TDSY TD SCH (09:33)
--- NOTE | 2019-01-13 12:59 | Psychiatric Progress Note ---
Date of Service January 13, 2019 Impression / Recommendations Impression The patient's condition remains unchanged. He continues to refuse to engage in treatment aside from compliance with scheduled haloperidol. Will discontinue clozapine and weekly blood draws, as he has consistently refused the scheduled medications since its initiation. Given significant risk of harm to self or others if discharged to a setting without adequate aftercare and supervision, plan remains for patient to remain in 24-hour supervised treatment until acceptance at the [facility]. There is great concern about the patient's ability to function, not only taking care of his personal needs, but also to participate in a non-destructive manner if re-integrated into the community. If unable to solidify [facility] placement, he will require arrangement of extensive outpatient community supports in order to maintain a level of care necessary for him to succeed in the outpatient setting. At this time, ongoing inpatient mental health treatment and 24-hour supervision is medically necessary due to unwillingness to participate in treatment, inappropriate deceptive behavior on the unit, lack of insight into the severity of his condition, and ongoing risk of harm to self or others if discharged without an adequate safety and aftercare plan. (1) Schizophrenia: 12/14 -patient is a poor historian, but mother provides historical information. 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 For now we will collect psychosis not otherwise specified. -Patient is refusing to sign releases for previous outpatient providers in [place], and staff contacted them but they refused to provide any information without a signed release. -Medically necessary private room due to psychosis, erratic and disorganized behavior, history of violence, and aggressive behavior and threats to harm others here in the hospital. -Start haloperidol 5 mg twice daily, as patient has a previous good response to Haldol Decanoate and clozapine. Recommend medications over objection once he is on a 303 involuntary commitment and has been seen by a second physician, as he has severe psychotic symptoms which are preventing him from accurately interpreting reality, influencing his behavior, and placing him at risk of harm to both himself and others as he has been acting on his delusions, experiencing auditory and visual 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, paranoia, engaging in unsafe behaviors including driving when he does not have a license or the knowledge to do so, abusing substances, and has been threatening towards others. He demonstrates no insight into his condition, but available information indicates response to treatment with antipsychotic medications in the past. -Medically necessary private room due to psychosis, aggressive behavior, and threats to harm others. -We will need to check fasting lipid profile and glucose once he is cooperative. -Excused from groups from the time being until able to participate appropriately. -Refusing to sign releases for parents, but mother is petitioner, so can inform her of the 303 hearing. 12/15 -The patient did except a single dose of lorazepam this morning, and did seem to be somewhat more calm. He was mildly labile during his involuntary commitment hearing this morning, but managed to maintain control and was not aggressive during the hearing or upon learning that he had been retained by the risk officer. Accordingly, we will continue to offer him lorazepam, since this medication in his case does not seem to be disinhibiting and, at least today, appeared to have helped him manage angry impulses during his involuntary commitment hearing. -The treatment team and I agree that, if possible, we would like to convince the patient to voluntarily take oral medications. Reports are that this morning he came close to taking oral haloperidol, but at the last minute declined. He is telling us that he will consistently refused medications, but our hope is that as we are able to gain his trust he will become more cooperative. We will continue to try to convince the patient to take oral haloperidol, but if this is unsuccessful we will seek two physician approval of medication over objection and give Haldol 5 mg IM BID. 12/16--tolerating Haldol, titrate to 10 mg BID. 12/18 - Continue haldol 10 mg bid - Continue discussion about LAMA - Encourage better sleep hygiene, staying awake in the day to promote sleep at night. 12/19 - Patient allowed labs to be drawn. FBS 93, FLP WNL with the exception of triglycerides of 186. Counseled to avoid fatty red meats, saturated fats. 12/20 -Again discussed the recommendations for long-acting injectable antipsychotic medication with the patient, which he initially declined because he said medic ations are poison. He has a meeting with his family this afternoon, and I will order the first loading dose of Haldol Decanoate 50 mg IM to be administered this afternoon, and if he is unwilling to take it, we will likely need to proceed with medications over objection tomorrow. We will try to encourage him to accept the intervention, as he reportedly did fairly well on this medication in the past. 12/21 -proceed with medications over objection: Haldol Decanoate 100 mg IM today, and Haldol 10 mg IM for refusal of oral Haldol. He will need 100-200 mg of Haldol Decanoate every 4 weeks based on his current oral dose, so will continue oral haloperidol for now until we can monitor response to the decanoate. 12/22 -the patient received Haldol Decanoate intramuscularly today, as a medication over objection. He tolerated the injection well, and today tells me that he "feels pretty good." -Today, the patient's associations seemed to be fairly tight on examination. He tends to be somewhat concrete in his thinking, but, as above, he did seem able to understand our rationale for continuing inpatient treatment at this point. 12/23 - tolerating halol dec w/o EPS or other complaints. will need to consider reduction of oral dose in approx 1 week. 12/24 - pt remains less acutely behaviorally disturbed since Haldol dec injection last however evidenced mild acting out when physically uncomfortable today - will add standing docusate 100mg po qhs and encourage oral hydration today for complaint of hard stool - [facility] to explore dispo options 12/25 - Increase in irritability - Planning meeting held with [facility]: possibility for [facility] vs [facility] hospital - Continue current meds and encourage prns 12/26 - 304 granted. Meeting with [facility], patient and parents held yesterday: parents confirmed he cannot return home. Treatment team and [facility], as patient not appropriate for CRR placement due to severity of symptoms and unwillingness for outpatient treatment and medications. 12/27 - Continue current medication regimen - Orders placed for necessary EKG, TB skin test to accompany [place] referral - Place on high elopement precautions last evening due to suspicious loitering at the entryway of the unit - Reviewed records from [place] [facility] - previous diagnoses were schizoaffective disorder and substance abuse 12/28 - Continue current medication regimen - EKG and PPD completed yesterday - PPD will need read on 12/30 12/29 -Add clozapine 12.5 mg BID and increase as tolerated by 25 mg per day to a do se of 300 mg daily (in two divided dosages, or all at bedtime).' 12/30 -titrating clozapine to 12.5 am and 25mg hs for 12/30 with plan to increase to 25mg bid on 12/31 and likely further titration if tolerating -maintained Haldol decanoate and Haldol po unchanged for now, with consideration of weaning Haldol po dose if clozapine is effective ,, although pt appears to have history of both Haldol forms being rx'd while on past clozapine med trial. Pt has been observed by staff to be improving as obtaining medication of haldol (including the immediate IM doses) 12/31 close monitoring for checking, continue plan above for IM Haldol over objection if checking haldol scheduled doses. Maintain clozapine dosing plan for now with potential re-considering clozapine plan if compklaince issues are occuring. Consider further titration of haldol decanoate as appropaite. 01/01 - Patient refusing Clozaril. Will leave in place, but not force meds over objection for refusal - Increase Haldol to 10 mg AM and 15 mg HS, with meds over objection for refusal - Continue MNPR due to irritability and hx of violence 01/02 -continue oral haloperidol 10 mg every morning and 15 mg at bedtime (moved to later time to try to minimize sedation/spending excessive time in bed during the day), and Haldol decanoate, next injection due 01/19/2019. Continue Lorazepam as needed. -He continues to refuse clozapine. 01/03 - Continue current meds and plan - Continue MNPR in deference to history of violence toward others. 01/04 - Continue current meds and plan - [facility] 01/05 - Change pills to liquid due to cheeking - Encourage patient to be out of bed and participating in his treatment - Planning meeting scheduled [facility] for next Saturday 01/06 -Patient agrees to a second Haldol Decanoate injection, 100 mg, with the hopes that we can taper him off oral haloperidol given his poor compliance. He has been on 25 mg p.o. daily, which is the equivalent of an initial dose of 500 mg decanoate (per UpToDate, dose of oral haloperidol > 10 mg and high risk of relapse, initiate dose at 20 times the daily oral dose). He got his initial Haldol Decanoate 100 mg on 12/22/2018. He will be due for his next injection on 01/19/2019, currently ordered for 200 mg, but may need to consider a higher dose given noncompliance with oral medication. Maintenance doses are typically 50- 200 mg. Will continue oral haloperidol liquid 10 mg every morning, but discontinue the 15 mg at bedtime dose. Oral haloperidol can be tapered over the period of the first 3 decanoate shots (60-90 days) depending on response. -Continue clozapine but decrease to 25 mg daily, as he has not been taking it, and continue to encourage him to try it, as it was reportedly beneficial in the past and stabilized him sufficiently to be discharged from the [facility]. -Continue as needed medications (Lorazepam, benztropine, haloperidol, and hydroxyzine). 01/07 -continue current medications and plan. 01/08 - Continue current meds and plan - [facility]ion [facility] scheduled for tomorrow. 01/09 -continue private room given antisocial behavior/stealing. [facility] held [facility], who do not feel he is appropriate for CRR placement and support [facility]. We have not yet received acceptance from [facility]. 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 01/10 -continue current plan. Coordinate with the [facility]. 01/11 - Continue current plan, awaiting acceptance and bed date from the [facility] - Although this is preferred plan, will need to arrange alternative options for appropriate discharge should bed date surpass ongoing criteria for inpatient admission 01/12 - Continue haloperidol 10mg qAM with scheduled injections of haloperidol decanoate - Given significant period of refusing scheduled clozapine - will cancel the medication and scheduled CBC blood draws - Awaiting acceptance to the [facility] and projected bed date - Continuing to work with [facility] should alternative arrangements be needed (2) Noncompliance with medications: 12/14 -stopped his medications 6 months ago and has decompensated since. Would benefit from a long-acting injectable, and either long-term inpatient treatment at the [facility] or involuntary outpatient treatment.. 12/15 -The patient's psychosis and severely impaired insight seem to be making him and accessible to reason, regarding the essential importance of psychiatric medications. There is a past history of favorable response to haloperidol as well as to clozapine. It is agreed that the patient would in all likelihood benefit from a long-acting injectable antipsychotic medication, given his history of recurrent medication nonadherence. 12/16--currently taking PO for a few doses, is on extended involuntary commitment and clearly ongoing schizophrenia which will fail to improve for him to be able to provide self-care without ongoing treatments on inpatient unit and medications over objection. Without antipsychotic medication he is at significant risk of /serious disability and a danger to himself/others. Dr. Srinivasan could provide second opinion if he refuses PO med. 12/18- Patient refusing to consider LAMA at this time. Will continue to encourage 12/21 -patient continues to refuse Haldol Decanoate, and is now also refusing oral Haldol. We will proceed with medications over objection, as he has a diagnosis of primary thought disorder, has benefited from Haldol Decanoate in the past, he is actively delusional and is refusing medications due to psychotic thought processes, and is at risk of harm to both himself and others if he remains untreated. He has a significant history of violence tied to his delusions, and it will be important to get his symptoms adequately managed to decrease the risk of violence towards others here in the hospital. 12/22 -medication adherence is most certainly going issue with this patient. We are recommending the continued use of Depo forms of antipsychotic medications, but, in the past, the patient has simply refused to return to the office of the healthcare professional who is administering the sectionas was the case last year when, after doing reasonably well, he stopped going for treatment, and stopped excepting medications. For this reason, we are carefully looking for a supportive living setting for this patient, preferably one that has the resources necessary to assist the resistant, not adherent to patient. 12/24 - remains better compliant with PO meds 12/25 - Takes meds when he thinks he needs them, but voiced some question about taking anything regularly after discharge. 12/29 -the patient refused a dose of haloperidol yesterday and received haloperidol 10 mg intramuscularly over objection from disease no holes were required and the patient was cooperative with the injection closed with disease. Afterwards, he wondered out loud why he had refused the medication, knowing that he would get it "one way or the other." Because the patient seemed to have responded well, in terms of his disorganized thinking, to the intramuscular dose of haloperidol, there has been some discussion in the team regarding the question of "cheeking" his oral medications. However, the explanation may be that haloperidol 10 mg IM is more potent than orally. In any event, today the patient commits to continued adherence with his medications as he acknowledges that he does feel that they have been helpful to him. 12/31 -potential signs of non compliance 12/30 and 12/31, consider further titration of haldol deaconate as appropriate to help ensure as full of dose being obtained as possible. maintained plan of haldol IM injections for non compliance of haldol po doses 01/05- Switch Haldol to liquid due to cheeking. 01/06 -second dose of Haldol Decanoate as above. Will taper off of oral Haldol over the next 30-60 days, and ideally maintain him on injectable medication given his history of cheeking and noncompliance with oral medication. He continues to refuse clozapine, could consider the addition of an injectable atypical antipsychotic if Haldol Decanoate is insufficient to control symptoms. 01/09 -taking Haldol liquid, but refusing clozapine. Meeting help with the county to discuss potential diversion options, during which patient was delusional and demonstrated very poor insight. He continues to state he would not take medications after discharge. 01/12 - Given consistent refusal of scheduled clozapine since its initial administration, will discontinue scheduled dose as well as scheduled blood draws for CBCs (3) Substance abuse: 12/14 -patient is not forthcoming, but mother reports he has been abusing alcohol, cough syrup, diphenhydramine, and likely other substances. We will monitor for withdrawal symptoms, and as his psychosis improves, will provide psychoeducation about the risks of substance abuse and recommendations for abstinence. -Avoid controlled substances given high risk of abuse/misuse/negative outcomes. 12/15 -It is recognized that the patient has an extensive history of abusing chemical substances, and it is generally agreed that use of controlled substances does pose significant risk of abuse and other negative outcomes in the long-term. However, the patient's irritability and unwillingness to cooperate with essential medications, such as haloperidol, as well as his history of physical aggression towards others, may be mitigated by the temporary use of a benzodiazepine. Today, a single dose of lorazepam seems to have been effective in helping the patient maintain composure during an involuntary commitment hearing that did not go in his favor, and staff have noticed that he has been somewhat more cooperative today, possibly in response to the dose of lorazepam. Accordingly, staff will continue to offer the patient as needed lorazepam. 12/21 -admission drug screen was positive for benzodiazepines, with significantly elevated temazepam (> 2000) and elevated oxazepam levels. Although he denied taking benzodiazepines prior to admission, he clearly was accessing them somehow. 12/22 -the patient is able to give what may be referred to as "lip service" to the concept of abstinence from drugs of abuse, but he seems to have little or no insight into the risks associated with his abuse of mood altering chemical substances, particularly within the context of his psychiatric illness. Again, a whole will be to identify an aftercare placement that we will be able to monitor him more assiduously for access to abusable chemical substances, including prescription medications, alcohol, and other drugs of abuse. (4) Antisocial personality disorder: 12/14 -extensive, lifelong history provided by adoptive mother which reveals a pervasive pattern of disregard for and violation of the rights of others which started at age 8 or earlier, failure to conform to social norms with respect to lawful behaviors as indicated by repeatedly performing acts that are grounds for arrest, deceitfulness, impulsivity and failure to plan ahead, irritability and aggressiveness, reckless disregard for safety of self and others, consistent irresponsibility, and lack of remorse. 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 -Reviewed expectations with respect to behavior on the unit. 12/15 -The patient's history of antisocial behavior is noted, and antisocial personality will not be a focus of treatment during this hospitalization. However, the record indicates that the patient's antisocial behaviors, which are lifelong, are mitigated to some extent when he is being successfully treated for his psychotic disorder. Accordingly, the approach will be to address his antisocial behaviors by focusing on addressing his psychosis. 12/22 -The patient's long-standing history of antisocial behaviorbehavior which reportedly predates the onset of his symptoms of schizophreniahave not been a focus of treatment and are unlikely to change. Careful monitoring, diversion, containment to the degree possible, to containment of the most appropriate interventions for this problem. 01/11 - Pt made aware again of unit expectations. With evidence of patient stealing keys and causing damage to room items - he remains on a medically neces saba private room. His room is to be searched twice daily to ensure any stolen, non-essential, or potentially hazardous items are not being accumulated to the point of causing potential harm. Continue to enforce clear boundaries. Inventory Assets Strengths: Good physical health. Able to form alliances with certain peers. Concerned and supportive parents. Needs: Continued adherence with psychiatric medications. Sustained recovery from psychotic features. Risk Factors Assessment Male: Yes : Yes Do You Have Access To A Gun?: No Health Problems: Yes Mental Health Diagnoses: Yes Substance Use Disorders: Yes Previous Attempt: No Previous Psychiatric Hospitalization: Yes Hopelessness: No Smoker: Yes Protective Factors Assessment Gnosticist Beliefs: No : No Responsible for Young Children: No Employed: No Stable Relationships: No Supportive Family: Yes Good Rapport with Provider: No Absence of Any Risk Factors Above: No Interval History Identifying Information APRIL GONZALEZ is a 43-year-old M who lives in [place] with his parents, has a history of a psychotic disorder (specific diagnosis not yet known, but history of multiple previous hospitalizations including a 1 year state hospitalization in [place]), and was admitted on 12/14/18 03:41 on a 302 involuntary commitment for psychosis, treatment noncompliance, and erratic, unsafe behavior. He is on a 304 involuntary commitment as of 12/26/2018. Chief Complaint "I just want to know if I can go home or what". Review of Systems Sleep Information Total Hours of Sleep: 7.75 Sleep Comments: came to kitchen for a drink and back to bed. Meal Information Percent Meal Consumed - Breakfast: 100 Percent Meal Consumed - Lunch: 75 Percent Meal Consumed - Dinner: 100 Nutrition Comment: pt. sleeping Subjective Subjective Patient was seen & assessed and interval progress reviewed with Nursing. Has been checking doors and is on extensive BID room checks. Remains on MNPR. No acute issues overnight, tolerated some group. Physical Exam Psychiatric Orientation: oriented to person, oriented to place and + guarded Apperance: + disheveled Eye Contact: + poor eye contact Motor Behavior: steady gait and station Speech: + abnormal rate/rhythm/volume of speech Affect: + blunted affect "fine" Thought Process: + concrete thought process Thought Content: + preoccupation (elopement) Suicidal Thoughts: denies suicidal thoughts Homicidal Thoughts: denies homicidal thoughts Hallucinations: no auditory 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 (not reliable rib cutter) and no visual 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 Cognition: language grossly intact; + attention not intact Estimated Intelligence: + below average estimated intelligence Insight: + poor insight Judgement: + poor judgement Vital Signs (Past 24 Hours) Last Vital Signs Temp 36.5 C 01/13/19 06:00 Pulse 91 H 01/13/19 06:37 Resp 18 01/13/19 06:00 BP 100/69 01/13/19 06:37 Pulse Ox 97 12/14/18 03:38 Results & Data Current Inpatient Medications Current Inpatient Medications: Current Inpatient Medications Acetaminophen (Tylenol) 650 mg PO Q4H PRN PRN Reason: Headache or Minor Fever Stop: 02/09/19 08:29 Last Admin: 01/12/19 18:03 Dose: 650 mg Documented by: Al Hydrox/Mg Hydrox/Simethicone (Maalox) 30 ml PO Q4H PRN PRN Reason: GI Upset Stop: 02/09/19 08:29 Benztropine Mesylate (Cogentin) 1 mg PO BID PRN PRN Reason: akathisia Stop: 02/09/19 08:29 Bismuth Subsalicylate (Kaopectate) 15 ml PO PRN PRN PRN Reason: Loose Stool Stop: 02/09/19 08:29 Docusate Sodium (Colace) 100 mg PO HS PRN PRN Reason: constipation Stop: 02/09/19 08:29 Haloperidol Decanoate (Haldol Dec[place]ate) 200 mg IM Q28D@0900 [facility] Stop: 02/18/19 08:59 Haloperidol Lactate (Haldol Lactate) 10 mg PO QAM [facility] Stop: 02/05/19 08:59 Last Admin: 01/13/19 09:32 Dose: 10 mg Documented by: Haloperidol Lactate (Haldol Lactate) 10 mg PO Q4H PRN PRN Reason: Psychosis or agitation Stop: 02/09/19 08:29 Haloperidol Lactate (Haldol) 10 mg IM 0900,1600 PRN PRN Reason: refusal of PO Stop: 02/09/19 08:29 Haloperidol Lactate (Haldol) 10 mg IM Q4 PRN PRN Reason: psychosis or agitation Stop: 02/09/19 08:29 Hydroxyzine HCl (Vistaril) 25 mg PO Q4H PRN PRN Reason: Anxiety Stop: 02/09/19 08:29 Last Admin: 01/13/19 06:52 Dose: 25 mg Documented by: Hydroxyzine HCl (Vistaril) 50 mg PO HSZ PRN PRN Reason: Insomnia Stop: 02/09/19 08:29 Last Admin: 01/12/19 21:02 Dose: 50 mg Documented by: Lorazepam (Ativan) 0.5 mg PO Q8H PRN PRN Reason: Agitation Stop: 02/07/19 14:59 Last Admin: 01/12/19 11:23 Dose: 0.5 mg Documented by: Magnesium Hydroxide (Milk Of Magnesia) 30 ml PO DAILY PRN PRN Reason: Heartburn Stop: 02/09/19 08:29 Menthol (Nice) 1 be BUCCAL Q2H PRN PRN Reason: Sore Throat Stop: 02/09/19 08:29 Miscellaneous (Remove Nicoderm Patch) 1 ea N/A DAILY@2100 [facility] Stop: 02/09/19 20:59 Last Admin: 01/12/19 21:02 Dose: Not Given Documented by: Nicotine (Nicoderm Cq) 21 mg TD QAM KELLY Stop: 02/09/19 08:59 Last Admin: 01/13/19 09:33 Dose: Not Given Documented by: Nicotine Polacrilex (Nicorette 2mg) 1 piece MT UD PRN PRN Reason: Nicotine Withdrawal Stop: 02/09/19 08:34 Last Admin: 01/11/19 20:42 Dose: 1 piece Documented by: Sodium Chloride (Traill Nasal) 1 - 2 sprays NA PRN PRN PRN Reason: Nasal Dryness/Congestion Stop: 02/09/19 08:34 Post Discharge Appointments Primary Care Physician Name Of Family Doctor: Denies Therapist Name of Therapist: Denies Damper Fitter Name of Damper Fitter: [employer] Phone Number for Damper Fitter: [phone] Case Management Appointment Comment: [address], [address], [place], [place] CPT Code CPT Code [address]372
[2019-01-13] MEDS: ACETAMINOPHEN 325 MG TAB PO PRN (13:43)
[2019-01-13] MEDS: LORazepam 0.5 MG TAB PO PRN (13:43)
[2019-01-13] MEDS: BENZTROPINE MESYLATE 1 MG TAB PO PRN ×2 (13:56→18:02)
[2019-01-14] MEDS: ACETAMINOPHEN 325 MG TAB PO PRN ×2 (10:08→18:56)
[2019-01-14] MEDS: LORazepam 0.5 MG TAB PO PRN ×2 (10:08→18:56)
[2019-01-14] MEDS: HALOPERIDOL ORAL SOLN 2 MG/ML PO SCH (10:09)
[2019-01-14] MEDS: NICOTINE 21 MG/24 HR TDSY TD SCH (10:11)
--- NOTE | 2019-01-14 10:51 | Psychiatric Progress Note ---
Date of Service January 14, 2019 Impression / Recommendations Impression The patient's condition remains unchanged. He continues to refuse to engage in treatment aside from compliance with scheduled haloperidol. Will discontinue clozapine and weekly blood draws, as he has consistently refused the scheduled medications since its initiation. Given significant risk of harm to self or others if discharged to a setting without adequate aftercare and supervision, plan remains for patient to remain in 24-hour supervised treatment until acceptance at the [facility]. There is great concern about the patient's ability to function, not only taking care of his personal needs, but also to participate in a non-destructive manner if re-integrated into the community. If unable to solidify [facility] hospital placement, he will require arrangement of extensive outpatient community supports in order to maintain a level of care necessary for him to succeed in the outpatient setting. At this time, ongoing inpatient mental health treatment and 24-hour supervision is medically necessary due to unwillingness to participate in treatment, inappropriate deceptive behavior on the unit, lack of insight into the severity of his condition, and ongoing risk of harm to self or others if discharged without an adequate safety and aftercare plan. (1) Schizophrenia: 12/14 -patient is a poor historian, but mother provides historical information. 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 For now we will collect psychosis not otherwise specified. -Patient is refusing to sign releases for previous outpatient providers in [place], and staff contacted them but they refused to provide any information without a signed release. -Medically necessary private room due to psychosis, erratic and disorganized behavior, history of violence, and aggressive behavior and threats to harm others here in the hospital. -Start haloperidol 5 mg twice daily, as patient has a previous good response to Haldol Decanoate and clozapine. Recommend medications over objection once he is on a 303 involuntary commitment and has been seen by a second physician, as he has severe psychotic symptoms which are preventing him from accurately interpreting reality, influencing his behavior, and placing him at risk of harm to both himself and others as he has been acting on his delusions, experiencing auditory and visual 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, paranoia, engaging in unsafe behaviors including driving when he does not have a license or the knowledge to do so, abusing substances, and has been threatening towards others. He demonstrates no insight into his condition, but available information indicates response to treatment with antipsychotic medications in the past. -Medically necessary private room due to psychosis, aggressive behavior, and threats to harm others. -We will need to check fasting lipid profile and glucose once he is cooperative. -Excused from groups from the time being until able to participate appropriately. -Refusing to sign releases for parents, but mother is petitioner, so can inform her of the 303 hearing. 12/15 -The patient did except a single dose of lorazepam this morning, and did seem to be somewhat more calm. He was mildly labile during his involuntary commitment hearing this morning, but managed to maintain control and was not aggressive during the hearing or upon learning that he had been retained by the parking officer. Accordingly, we will continue to offer him lorazepam, since this medication in his case does not seem to be disinhibiting and, at least today, appeared to have helped him manage angry impulses during his involuntary commitment hearing. -The treatment team and I agree that, if possible, we would like to convince the patient to voluntarily take oral medications. Reports are that this morning he came close to taking oral haloperidol, but at the last minute declined. He is telling us that he will consistently refused medications, but our hope is that as we are able to gain his trust he will become more cooperative. We will continue to try to convince the patient to take oral haloperidol, but if this is unsuccessful we will seek two physician approval of medication over objection and give Haldol 5 mg IM BID. 12/16--tolerating Haldol, titrate to 10 mg BID. 12/18 - Continue haldol 10 mg bid - Continue discussion about LAMA - Encourage better sleep hygiene, staying awake in the day to promote sleep at night. 12/19 - Patient allowed labs to be drawn. FBS 93, FLP WNL with the exception of triglycerides of 186. Counseled to avoid fatty red meats, saturated fats. 12/20 -Again discussed the recommendations for long-acting injectable antipsychotic medication with the patient, which he initially declined because he said medic ations are poison. He has a meeting with his family this afternoon, and I will order the first loading dose of Haldol Decanoate 50 mg IM to be administered this afternoon, and if he is unwilling to take it, we will likely need to proceed with medications over objection tomorrow. We will try to encourage him to accept the intervention, as he reportedly did fairly well on this medication in the past. 12/21 -proceed with medications over objection: Haldol Decanoate 100 mg IM today, and Haldol 10 mg IM for refusal of oral Haldol. He will need 100-200 mg of Haldol Decanoate every 4 weeks based on his current oral dose, so will continue oral haloperidol for now until we can monitor response to the decanoate. 12/22 -the patient received Haldol Decanoate intramuscularly today, as a medication over objection. He tolerated the injection well, and today tells me that he "feels pretty good." -Today, the patient's associations seemed to be fairly tight on examination. He tends to be somewhat concrete in his thinking, but, as above, he did seem able to understand our rationale for continuing inpatient treatment at this point. 12/23 - tolerating halol dec w/o EPS or other complaints. will need to consider reduction of oral dose in approx 1 week. 12/24 - pt remains less acutely behaviorally disturbed since Haldol dec injection last however evidenced mild acting out when physically uncomfortable today - will add standing docusate 100mg po qhs and encourage oral hydration today for complaint of hard stool - meeting w/ [facility] services tomorrow to explore dispo options 12/25 - Increase in irritability - Planning meeting held with [facility]: possibility for CRR vs state hospital - Continue current meds and encourage prns 12/26 - 304 granted. Meeting with [facility], patient and parents held yesterday: parents confirmed he cannot return home. Treatment team and [facility] recommends state hospitalization, as patient not appropriate for CRR placement due to severity of symptoms and unwillingness for outpatient treatment and medications. 12/27 - Continue current medication regimen - Orders placed for necessary EKG, TB skin test to accompany [place] referral - Place on high elopement precautions last evening due to suspicious loitering at the entryway of the unit - Reviewed records from [facility] - previous diagnoses were schizoaffective disorder and substance abuse 12/28 - Continue current medication regimen - EKG and PPD completed yesterday - PPD will need read on 12/30 12/29 -Add clozapine 12.5 mg BID and increase as tolerated by 25 mg per day to a do se of 300 mg daily (in two divided dosages, or all at bedtime).' 12/30 -titrating clozapine to 12.5 am and 25mg hs for 12/30 with plan to increase to 25mg bid on 12/31 and likely further titration if tolerating -maintained Haldol decanoate and Haldol po unchanged for now, with consideration of weaning Haldol po dose if clozapine is effective ,, although pt appears to have history of both Haldol forms being rx'd while on past clozapine med trial. Pt has been observed by staff to be improving as obtaining medication of haldol (including the immediate IM doses) 12/31 close monitoring for checking, continue plan above for IM Haldol over objection if checking haldol scheduled doses. Maintain clozapine dosing plan for now with potential re-considering clozapine plan if compklaince issues are occuring. Consider further titration of haldol decanoate as appropaite. 01/01 - Patient refusing Clozaril. Will leave in place, but not force meds over objection for refusal - Increase Haldol to 10 mg AM and 15 mg HS, with meds over objection for refusal - Continue MNPR due to irritability and hx of violence 01/02 -continue oral haloperidol 10 mg every morning and 15 mg at bedtime (moved to later time to try to minimize sedation/spending excessive time in bed during the day), and Haldol decanoate, next injection due 01/19/2019. Continue Lorazepam as needed. -He continues to refuse clozapine. 01/03 - Continue current meds and plan - Continue MNPR in deference to history of violence toward others. 01/04 - Continue current meds and plan - Meeting scheduled with the [facility] to discuss disposition 01/05 - Change pills to liquid due to cheeking - Encourage patient to be out of bed and participating in his treatment - Planning meeting scheduled with the [facility] for next Saturday 01/06 -Patient agrees to a second Haldol Decanoate injection, 100 mg, with the hopes that we can taper him off oral haloperidol given his poor compliance. He has been on 25 mg p.o. daily, which is the equivalent of an initial dose of 500 mg decanoate (per UpToDate, dose of oral haloperidol > 10 mg and high risk of relapse, initiate dose at 20 times the daily oral dose). He got his initial Haldol Decanoate 100 mg on 12/22/2018. He will be due for his next injection on 01/19/2019, currently ordered for 200 mg, but may need to consider a higher dose given noncompliance with oral medication. Maintenance doses are typically 50- 200 mg. Will continue oral haloperidol liquid 10 mg every morning, but discontinue the 15 mg at bedtime dose. Oral haloperidol can be tapered over the period of the first 3 decanoate shots (60-90 days) depending on response. -Continue clozapine but decrease to 25 mg daily, as he has not been taking it, and continue to encourage him to try it, as it was reportedly beneficial in the past and stabilized him sufficiently to be discharged from the [facility] hospital. -Continue as needed medications (Lorazepam, benztropine, haloperidol, and hydroxyzine). 01/07 -continue current medications and plan. 01/08 - Continue current meds and plan - Diversion meeting with the [facility] scheduled for tomorrow. 01/09 -continue private room given antisocial behavior/stealing. Meeting held with the [facility], who do not feel he is appropriate for CRR placement and support [facility] hospitalization. We have not yet received acceptance from [facility]. 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 01/10 -continue current plan. Coordinate with the [facility]. 01/11 - Continue current plan, awaiting acceptance and bed date from the [facility] - Although this is preferred plan, will need to arrange alternative options for appropriate discharge should bed date surpass ongoing criteria for inpatient admission 01/12 - Continue haloperidol 10mg qAM with scheduled injections of haloperidol decanoate - Given significant period of refusing scheduled clozapine - will cancel the medication and scheduled CBC blood draws - Awaiting acceptance to the [facility] hospital and projected bed date - Continuing to work with [facility] resources should alternative arrangements be needed (2) Noncompliance with medications: 12/14 -stopped his medications 6 months ago and has decompensated since. Would benefit from a long-acting injectable, and either long-term inpatient treatment at the [facility] or involuntary outpatient treatment.. 12/15 -The patient's psychosis and severely impaired insight seem to be making him and accessible to reason, regarding the essential importance of psychiatric medications. There is a past history of favorable response to haloperidol as well as to clozapine. It is agreed that the patient would in all likelihood benefit from a long-acting injectable antipsychotic medication, given his history of recurrent medication nonadherence. 12/16--currently taking PO for a few doses, is on extended involuntary commitment and clearly ongoing schizophrenia which will fail to improve for him to be able to provide self-care without ongoing treatments on inpatient unit and medications over objection. Without antipsychotic medication he is at significant risk of /serious disability and a danger to himself/others. Dr. Srinivasan could provide second opinion if he refuses PO med. 12/18- Patient refusing to consider LAMA at this time. Will continue to encourage 12/21 -patient continues to refuse Haldol Decanoate, and is now also refusing oral Haldol. We will proceed with medications over objection, as he has a diagnosis of primary thought disorder, has benefited from Haldol Decanoate in the past, he is actively delusional and is refusing medications due to psychotic thought processes, and is at risk of harm to both himself and others if he remains untreated. He has a significant history of violence tied to his delusions, and it will be important to get his symptoms adequately managed to decrease the risk of violence towards others here in the hospital. 12/22 -medication adherence is most certainly going issue with this patient. We are recommending the continued use of Depo forms of antipsychotic medications, but, in the past, the patient has simply refused to return to the office of the healthcare professional who is administering the sectionas was the case last year when, after doing reasonably well, he stopped going for treatment, and stopped excepting medications. For this reason, we are carefully looking for a supportive living setting for this patient, preferably one that has the resources necessary to assist the resistant, not adherent to patient. 12/24 - remains better compliant with PO meds 12/25 - Takes meds when he thinks he needs them, but voiced some question about taking anything regularly after discharge. 12/29 -the patient refused a dose of haloperidol yesterday and received haloperidol 10 mg intramuscularly over objection from disease no holes were required and the patient was cooperative with the injection closed with disease. Afterwards, he wondered out loud why he had refused the medication, knowing that he would get it "one way or the other." Because the patient seemed to have responded well, in terms of his disorganized thinking, to the intramuscular dose of haloperidol, there has been some discussion in the team regarding the question of "cheeking" his oral medications. However, the explanation may be that haloperidol 10 mg IM is more potent than orally. In any event, today the patient commits to continued adherence with his medications as he acknowledges that he does feel that they have been helpful to him. 12/31 -potential signs of non compliance 12/30 and 12/31, consider further titration of haldol deaconate as appropriate to help ensure as full of dose being obtained as possible. maintained plan of haldol IM injections for non compliance of haldol po doses 01/05- Switch Haldol to liquid due to cheeking. 01/06 -second dose of Haldol Decanoate as above. Will taper off of oral Haldol over the next 30-60 days, and ideally maintain him on injectable medication given his history of cheeking and noncompliance with oral medication. He continues to refuse clozapine, could consider the addition of an injectable atypical antipsychotic if Haldol Decanoate is insufficient to control symptoms. 01/09 -taking Haldol liquid, but refusing clozapine. Meeting help with the county to discuss potential diversion options, during which patient was delusional and demonstrated very poor insight. He continues to state he would not take medications after discharge. 01/12 - Given consistent refusal of scheduled clozapine since its initial administration, will discontinue scheduled dose as well as scheduled blood draws for CBCs (3) Substance abuse: 12/14 -patient is not forthcoming, but mother reports he has been abusing alcohol, cough syrup, diphenhydramine, and likely other substances. We will monitor for withdrawal symptoms, and as his psychosis improves, will provide psychoeducation about the risks of substance abuse and recommendations for abstinence. -Avoid controlled substances given high risk of abuse/misuse/negative outcomes. 12/15 -It is recognized that the patient has an extensive history of abusing chemical substances, and it is generally agreed that use of controlled substances does pose significant risk of abuse and other negative outcomes in the long-term. However, the patient's irritability and unwillingness to cooperate with essential medications, such as haloperidol, as well as his history of physical aggression towards others, may be mitigated by the temporary use of a benzodiazepine. Today, a single dose of lorazepam seems to have been effective in helping the patient maintain composure during an involuntary commitment hearing that did not go in his favor, and staff have noticed that he has been somewhat more cooperative today, possibly in response to the dose of lorazepam. Accordingly, staff will continue to offer the patient as needed lorazepam. 12/21 -admission drug screen was positive for benzodiazepines, with significantly elevated temazepam (> 2000) and elevated oxazepam levels. Although he denied taking benzodiazepines prior to admission, he clearly was accessing them somehow. 12/22 -the patient is able to give what may be referred to as "lip service" to the concept of abstinence from drugs of abuse, but he seems to have little or no insight into the risks associated with his abuse of mood altering chemical substances, particularly within the context of his psychiatric illness. Again, a whole will be to identify an aftercare placement that we will be able to monitor him more assiduously for access to abusable chemical substances, including prescription medications, alcohol, and other drugs of abuse. (4) Antisocial personality disorder: 12/14 -extensive, lifelong history provided by adoptive mother which reveals a pervasive pattern of disregard for and violation of the rights of others which started at age 8 or earlier, failure to conform to social norms with respect to lawful behaviors as indicated by repeatedly performing acts that are grounds for arrest, deceitfulness, impulsivity and failure to plan ahead, irritability and aggressiveness, reckless disregard for safety of self and others, consistent irresponsibility, and lack of remorse. 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 -Reviewed expectations with respect to behavior on the unit. 12/15 -The patient's history of antisocial behavior is noted, and antisocial personality will not be a focus of treatment during this hospitalization. However, the record indicates that the patient's antisocial behaviors, which are lifelong, are mitigated to some extent when he is being successfully treated for his psychotic disorder. Accordingly, the approach will be to address his antisocial behaviors by focusing on addressing his psychosis. 12/22 -The patient's long-standing history of antisocial behaviorbehavior which reportedly predates the onset of his symptoms of schizophreniahave not been a focus of treatment and are unlikely to change. Careful monitoring, diversion, containment to the degree possible, to containment of the most appropriate interventions for this problem. / - Pt made aware again of unit expectations. With evidence of patient stealing keys and causing damage to room items - he remains on a medically neces saba private room. His room is to be searched twice daily to ensure any stolen, non-essential, or potentially hazardous items are not being accumulated to the point of causing potential harm. Continue to enforce clear boundaries. Inventory Assets Strengths: Good physical health. Able to form alliances with certain peers. Concerned and supportive parents. Needs: Continued adherence with psychiatric medications. Sustained recovery from psychotic features. Risk Factors Assessment Male: Yes : Yes Do You Have Access To A Gun?: No Health Problems: Yes Mental Health Diagnoses: Yes Substance Use Disorders: Yes Previous Attempt: No Previous Psychiatric Hospitalization: Yes Hopelessness: No Smoker: Yes Protective Factors Assessment [employer] Beliefs: No : No Responsible for Young Children: No Employed: No Stable Relationships: No Supportive Family: Yes Good Rapport with Provider: No Absence of Any Risk Factors Above: No Interval History Identifying Information APRIL GONZALEZ is a 43-year-old M who lives in [place] with his parents, has a history of a psychotic disorder (specific diagnosis not yet known, but history of multiple previous hospitalizations including a 1 year state hospitalization in [place]), and was admitted on 12/14/18 03:41 on a 302 involuntary commitment for psychosis, treatment noncompliance, and erratic, unsafe behavior. He is on a 304 involuntary commitment as of 12/26/2018. Chief Complaint "don't want to talk about it". Review of Systems Sleep Information Total Hours of Sleep: 7.25 Sleep Comments: came to kitchen for a drink and back to bed. Meal Information Percent Meal Consumed - Breakfast: 100 Percent Meal Consumed - Lunch: 100 Percent Meal Consumed - Dinner: 100 Nutrition Comment: per meal record Subjective Subjective Patient was seen & assessed and interval progress reviewed with Nursing and social work job titles. Told male staff yesterday that was experiencing restlessness and aud bonilla in the context of feeling "trapped" here. Remains difficult to engage around these symptoms, guarded as doesn't want more medication but told that staff they say "kill kill". He has been redirectible, took prns. Harder time sleeping last hs. Physical Exam Psychiatric Orientation: alert and + guarded Apperance: + disheveled Eye Contact: + poor eye contact Motor Behavior: no abnormal motor movements Speech: + abnormal rate/rhythm/volume of speech Affect: + blunted affect Mood: + irritable mood Thought Process: + concrete thought process Thought Content: no delusions Suicidal Thoughts: denies suicidal thoughts Homicidal Thoughts: denies homicidal thoughts Hallucinations: no auditory 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 (unreliable montessori lead teacher) and no visual 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 Cognition: language grossly intact; + attention not intact Insight: + impaired insight Judgement: + impaired judgement Vital Signs (Past 24 Hours) Last Vital Signs Temp 36.5 C 01/13/19 06:00 Pulse 91 H 01/13/19 06:37 Resp 18 01/13/19 06:00 BP 100/69 01/13/19 06:37 Pulse Ox 97 12/14/18 03:38 Results & Data Current Inpatient Medications Current Inpatient Medications: Current Inpatient Medications Acetaminophen (Tylenol) 650 mg PO Q4H PRN PRN Reason: Headache or Minor Fever Stop: 02/09/19 08:29 Last Admin: 01/14/19 10:08 Dose: 650 mg Documented by: Al Hydrox/Mg Hydrox/Simethicone (Maalox) 30 ml PO Q4H PRN PRN Reason: GI Upset Stop: 02/09/19 08:29 Benztropine Mesylate (Cogentin) 1 mg PO BID PRN PRN Reason: akathisia Stop: 02/09/19 08:29 Last Admin: 01/13/19 18:02 Dose: 1 mg Documented by: Bismuth Subsalicylate (Kaopectate) 15 ml PO PRN PRN PRN Reason: Loose Stool Stop: 02/09/19 08:29 Docusate Sodium (Colace) 100 mg PO HS PRN PRN Reason: constipation Stop: 02/09/19 08:29 Haloperidol Decanoate (Haldol Decanoate) 200 mg IM Q28D@0900 [facility] Stop: 02/18/19 08:59 Haloperidol Lactate (Haldol Lactate) 10 mg PO QAM [facility] Stop: 02/05/19 08:59 Last Admin: 01/14/19 10:09 Dose: 10 mg Documented by: Haloperidol Lactate (Haldol Lactate) 10 mg PO Q4H PRN PRN Reason: Psychosis or agitation Stop: 02/09/19 08:29 Haloperidol Lactate (Haldol) 10 mg IM 0900,1600 PRN PRN Reason: refusal of PO Stop: 02/09/19 08:29 Haloperidol Lactate (Haldol) 10 mg IM Q4 PRN PRN Reason: psychosis or agitation Stop: 02/09/19 08:29 Hydroxyzine HCl (Vistaril) 25 mg PO Q4H PRN PRN Reason: Anxiety Stop: 02/09/19 08:29 Last Admin: 01/13/19 17:50 Dose: 25 mg Documented by: Hydroxyzine HCl (Vistaril) 50 mg PO HSZ PRN PRN Reason: Insomnia Stop: 02/09/19 08:29 Last Admin: 01/13/19 22:28 Dose: 50 mg Documented by: Lorazepam (Ativan) 0.5 mg PO Q8H PRN PRN Reason: Agitation Stop: 02/07/19 14:59 Last Admin: 01/14/19 10:08 Dose: 0.5 mg Documented by: Magnesium Hydroxide (Milk Of Magnesia) 30 ml PO DAILY PRN PRN Reason: Heartburn Stop: 02/09/19 08:29 Menthol (Nice) 1 be BUCCAL Q2H PRN PRN Reason: Sore Throat Stop: 02/09/19 08:29 Miscellaneous (Remove Nicoderm Patch) 1 ea N/A DAILY@2100 [facility] Stop: 02/09/19 20:59 Last Admin: 01/13/19 17:50 Dose: Not Given Documented by: Nicotine (Nicoderm Cq) 21 mg TD QAM [facility] Stop: 02/09/19 08:59 Last Admin: 01/14/19 10:11 Dose: Not Given Documented by: Nicotine Polacrilex (Nicorette 2mg) 1 piece MT UD PRN PRN Reason: Nicotine Withdrawal Stop: 02/09/19 08:34 Last Admin: 01/11/19 20:42 Dose: 1 piece Documented by: Sodium Chloride ([place] Nasal) 1 - 2 sprays NA PRN PRN PRN Reason: Nasal Dryness/Congestion Stop: 02/09/19 08:34 Post Discharge Appointments Primary Care Physician Name Of Family Doctor: Denies Therapist Name of Therapist: Denies Industrial Servicer Name of Industrial Servicer: [employer] [facility] Phone Number for Industrial Servicer: [phone] Case Management Appointment Comment: [address], [address], [place], [place] CPT Code CPT Code 76139
[2019-01-14] MEDS: BENZTROPINE MESYLATE 1 MG TAB PO PRN (13:25)
--- NOTE | 2019-01-14 17:02 | Progress Note ---
Date of Service January 14, 2019 Subjective Notified of incident on the unit. Patient was found to be in possession of another patient's medication. Reports he stole it from the nurses station several hours ago. He reports taking the Vistaril (staff approximate 80 mg). No evidence of AMS and VSS. He is in possession of liquid Celexa, appears none taken but can't be administered to co-patient. It is not clear if patient actually took Vistaril or poured it out, EKG to eval QTc will be obtained. Confirmed that nursing home physician notified to discuss safety procedures at nursing station. Advised staff to lock 1 door to [place] and door to nurses station closest to patient's room at all time to improve visibility on unit. No evidence that a suicidal gesture, highly manipulative patient and is acting out given length of stay. Remains on elopement precautions. Will d/c Vistaril prns. Results & Data Vital Signs (Past 12 Hours) Vital Signs Temp Pulse Pulse Resp BP 01/14/19 16:38 36.6 C 76 76 14 105/65
[2019-01-15] MEDS: HALOPERIDOL ORAL SOLN 2 MG/ML PO SCH (09:19)
[2019-01-15] MEDS: NICOTINE 21 MG/24 HR TDSY TD SCH (09:23)
--- NOTE | 2019-01-15 10:32 | Psychiatric Progress Note ---
Date of Service January 15, 2019 Impression / Recommendations Impression Reviewed EKG following ingestion of what was believed to be ~80mg of liquid hydroxyzine, unknown if also consumed liquid citalopram, but believed to be unlikely. EKG unremarkable, QTc - 411. Pt's condition remains unchanged. He continues to be compliant with only haloperidol, unwilling for other medications. Given significant risk of harm to self or others if discharged to a setting without adequate aftercare and supervision, plan remains for patient to remain in 24-hour supervised treatment until acceptance at the [facility]. There is great concern about the patient's ability to function, not only taking care of his personal needs, but also to participate in a non- destructive manner if re-integrated into the community. If unable to solidify [facility] placement, he will require arrangement of extensive outpatient community supports in order to maintain a level of care necessary for him to succeed in the outpatient setting. At this time, ongoing inpatient mental health treatment and 24-hour supervision is medically necessary due to unwillingness to participate in treatment, inappropriate deceptive behavior on the unit, lack of insight into the severity of his condition, and ongoing risk of harm to self or others if discharged without an adequate safety and aftercare plan. Length of stay has exceeded 30-days; 30-day treatment plan reviewed on 01/12/19. At this time, it is not appropriate for the patient to be taken outside, given high elopement risk and behavioral concerns on the unit. Pt placed on line of sight, due to ongoing display of antisocial behaviors. Will continue high elopement precautions and medically necessary private room. (1) Schizophrenia: 12/14 -patient is a poor historian, but mother provides historical informa tion. 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 For now we will collect psychosis not otherwise specified. -Patient is refusing to sign releases for previous outpatient providers in [place], and staff contacted them but they refused to provide any information without a signed release. -Medically necessary private room due to psychosis, erratic and disorganized behavior, history of violence, and aggressive behavior and threats to harm others here in the hospital. -Start haloperidol 5 mg twice daily, as patient has a previous good response to Haldol Decanoate and clozapine. Recommend medications over objection once he is on a 303 involuntary commitment and has been seen by a second physician, as he has severe psychotic symptoms which are preventing him from accurately interpreting reality, influencing his behavior, and placing him at risk of harm to both himself and others as he has been acting on his delusions, experiencing auditory and visual 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, paranoia, engaging in unsafe behaviors including driving when he does not have a license or the knowledge to do so, abusing substances, and has been threatening towards others. He demonstrates no insight into his condition, but available information indicates response to treatment with antipsychotic medications in the past. -Medically necessary private room due to psychosis, aggressive behavior, and threats to harm others. -We will need to check fasting lipid profile and glucose once he is cooperative. -Excused from groups from the time being until able to participate appropriately. -Refusing to sign releases for parents, but mother is petitioner, so can inform her of the 303 hearing. 12/15 -The patient did except a single dose of lorazepam this morning, and did seem to be somewhat more calm. He was mildly labile during his involuntary commitment hearing this morning, but managed to maintain control and was not aggressive during the hearing or upon learning that he had been retained by the hearing aid assembly supervisor. Accordingly, we will continue to offer him lorazepam, since this medication in his case does not seem to be disinhibiting and, at least today, appeared to have helped him manage angry impulses during his involuntary commitment hearing. -The treatment team and I agree that, if possible, we would like to convince the patient to voluntarily take oral medications. Reports are that this morning he came close to taking oral haloperidol, but at the last minute declined. He is telling us that he will consistently refused medications, but our hope is that as we are able to gain his trust he will become more cooperative. We will continue to try to convince the patient to take oral haloperidol, but if this is unsuccessful we will seek two physician approval of medication over objection and give Haldol 5 mg IM BID. 12/16--tolerating Haldol, titrate to 10 mg BID. 12/18 - Continue haldol 10 mg bid - Continue discussion about LAMA - Encourage better sleep hygiene, staying awake in the day to promote sleep at night. 12/19 - Patient allowed labs to be drawn. FBS 93, FLP WNL with the exception of triglycerides of 186. Counseled to avoid fatty red meats, saturated fats. 12/20 -Again discussed the recommendations for long-acting injectable antipsychotic medication with the patient, which he initially declined because he said medications are poison. He has a meeting with his family this afternoon, and I will order the first loading dose of Haldol Decanoate 50 mg IM to be administered this afternoon, and if he is unwilling to take it, we will likely need to proceed with medications over objection tomorrow. We will try to encourage him to accept the intervention, as he reportedly did fairly well on this medication in the past. 12/21 -proceed with medications over objection: Haldol Decanoate 100 mg IM today, and Haldol 10 mg IM for refusal of oral Haldol. He will need 100-200 mg of Haldol Decanoate every 4 weeks based on his current oral dose, so will continue oral haloperidol for now until we can monitor response to the decanoate. 12/22 -the patient received Haldol Decanoate intramuscularly today, as a medication over objection. He tolerated the injection well, and today tells me that he "feels pretty good." -Today, the patient's associations seemed to be fairly tight on examination. He tends to be somewhat concrete in his thinking, but, as above, he did seem able to understand our rationale for continuing inpatient treatment at this point. 12/23 - tolerating halol dec w/o EPS or other complaints. will need to consider reduction of oral dose in approx 1 week. 12/24 - pt remains less acutely behaviorally disturbed since Haldol dec injection last however evidenced mild acting out when physically uncomfortable today - will add standing docusate 100mg po qhs and encourage oral hydration today for complaint of hard stool - meeting w/ [facility] services tomorrow to explore dispo options 12/25 - Increase in irritability - Planning meeting held with [facility]: possibility for CRR vs state hospital - Continue current meds and encourage prns 12/26 - 304 granted. Meeting with [facility], patient and parents held yesterday: parents confirmed he cannot return home. Treatment team and [facility] recommends state hospitalization, as patient not appropriate for CRR placement due to severity of symptoms and unwillingness for outpatient treatment and medications. 12/27 - Continue current medication regimen - Orders placed for necessary EKG, TB skin test to accompany [place] referral - Place on high elopement precautions last evening due to suspicious loitering at the entryway of the unit - Reviewed records from [facility] - previous diagnoses were schizoaffective dis order and substance abuse 12/28 - Continue current medication regimen - EKG and PPD completed yesterday - PPD will need read on 12/30 12/29 -Add clozapine 12.5 mg BID and increase as tolerated by 25 mg per day to a dose of 300 mg daily (in two divided dosages, or all at bedtime).' 12/30 -titrating clozapine to 12.5 am and 25mg hs for 12/30 with plan to increase to 25mg bid on 12/31 and likely further titration if tolerating -maintained Haldol decanoate and Haldol po unchanged for now, with consideration of weaning Haldol po dose if clozapine is effective ,, although pt appears to have history of both Haldol forms being rx'd while on past clozapine med trial. Pt has been observed by staff to be improving as obtaining medication of haldol (including the immediate IM doses) 12/31 close monitoring for checking, continue plan above for IM Haldol over objection if checking haldol scheduled doses. Maintain clozapine dosing plan for now with potential re-considering clozapine plan if compklaince issues are occuring. Consider further titration of haldol decanoate as appropaite. 01/01 - Patient refusing Clozaril. Will leave in place, but not force meds over objection for refusal - Increase Haldol to 10 mg AM and 15 mg HS, with meds over objection for refusal - Continue MNPR due to irritability and hx of violence 01/02 -continue oral haloperidol 10 mg every morning and 15 mg at bedtime (moved to later time to try to minimize sedation/spending excessive time in bed during the day), and Haldol decanoate, next injection due 01/19/2019. Continue Lorazepam as needed. -He continues to refuse clozapine. 01/03 - Continue current meds and plan - Continue MNPR in deference to history of violence toward others. 01/04 - Continue current meds and plan - Meeting scheduled with the [facility] to discuss disposition 01/05 - Change pills to liquid due to cheeking - Encourage patient to be out of bed and participating in his treatment - Planning meeting scheduled with the [facility] for next Saturday 01/06 -Patient agrees to a second Haldol Decanoate injection, 100 mg, with the hopes that we can taper him off oral haloperidol given his poor compliance. He has been on 25 mg p.o. daily, which is the equivalent of an initial dose of 500 mg decanoate (per UpToDate, dose of oral haloperidol > 10 mg and high risk of relapse, initiate dose at 20 times the daily oral dose). He got his initial Haldol Decanoate 100 mg on 12/22/2018. He will be due for his next injection on 01/19/2019, currently ordered for 200 mg, but may need to consider a higher dose given noncompliance with oral medication. Maintenance doses are typically 50- 200 mg. Will continue oral haloperidol liquid 10 mg every morning, but discontinue the 15 mg at bedtime dose. Oral haloperidol can be tapered over the period of the first 3 decanoate shots (60-90 days) depending on response. -Continue clozapine but decrease to 25 mg daily, as he has not been taking it, and continue to encourage him to try it, as it was reportedly beneficial in the past and stabilized him sufficiently to be discharged from the [facility]. -Continue as needed medications (Lorazepam, benztropine, haloperidol, and hydroxyzine). 01/07 -continue current medications and plan. 01/08 - Continue current meds and plan - Diversion meeting with the [facility] scheduled for tomorrow. 01/09 -continue private room given antisocial behavior/stealing. Meeting held with the [facility], who do not feel he is appropriate for CRR placement and support state hospitalization. We have not yet received acceptance from [facility]. -Staff to search room daily and remove contraband, restrict patient's ability to keep items in his room due to repeated stealing and having access to items that could potentially be harmful, such as a large amount of hand transition specialist. 01/10 -continue current plan. Coordinate with the [facility]. 01/11 - Continue current plan, awaiting acceptance and bed date from the [facility] - Although this is preferred plan, will need to arrange alternative options for appropriate discharge should bed date surpass ongoing criteria for inpatient admission 01/12 - Continue haloperidol 10mg qAM with scheduled injections of haloperidol decanoate - Given significant period of refusing scheduled clozapine - will cancel the medication and scheduled CBC blood draws - Awaiting acceptance to the [facility] and projected bed date - Continuing to work with [facility] resources should alternative arrangements be needed (2) Noncompliance with medications: 12/14 -stopped his medications 6 months ago and has decompensated since. Would benefit from a long-acting injectable, and either long-term inpatient treatment at the [facility] or involuntary outpatient treatment.. 12/15 -The patient's psychosis and severely impaired insight seem to be making him and accessible to reason, regarding the essential importance of psychiatric medications. There is a past history of favorable response to haloperidol as well as to clozapine. It is agreed that the patient would in all likelihood benefit from a long-acting injectable antipsychotic medication, given his history of recurrent medication nonadherence. 12/16--currently taking PO for a few doses, is on extended involuntary commitment and clearly ongoing schizophrenia which will fail to improve for him to be able to provide self-care without ongoing treatments on inpatient unit and medications over objection. Without antipsychotic medication he is at significant risk of /serious disability and a danger to himself/others. Dr. Srinivasan could provide second opinion if he refuses PO med. 12/18- Patient refusing to consider LAMA at this time. Will continue to encourage 12/21 -patient continues to refuse Haldol Decanoate, and is now also refusing oral Haldol. We will proceed with medications over objection, as he has a diagnosis of primary thought disorder, has benefited from Haldol Decanoate in the past, he is actively delusional and is refusing medications due to psychotic thought processes, and is at risk of harm to both himself and others if he remains untreated. He has a significant history of violence tied to his delusions, and it will be important to get his symptoms adequately managed to decrease the risk of violence towards others here in the hospital. 12/22 -medication adherence is most certainly going issue with this patient. We are recommending the continued use of Depo forms of antipsychotic medications, but, in the past, the patient has simply refused to return to the office of the healthcare professional who is administering the sectionas was the case last year when, after doing reasonably well, he stopped going for treatment, and stopped excepting medications. For this reason, we are carefully looking for a supportive living setting for this patient, preferably one that has the resources necessary to assist the resistant, not adherent to patient. 12/24 - remains better compliant with PO meds 12/25 - Takes meds when he thinks he needs them, but voiced some question about taking anything regularly after discharge. 12/29 -the patient refused a dose of haloperidol yesterday and received haloperidol 10 mg intramuscularly over objection from disease no holes were required and the patient was cooperative with the injection closed with disease. Afterwards, he wondered out loud why he had refused the medication, knowing that he would get it "one way or the other." Because the patient seemed to have responded well, in terms of his disorganized thinking, to the intramuscular dose of haloperidol, there has been some discussion in the team regarding the question of "cheeking" his oral medications. However, the explanation may be that haloperidol 10 mg IM is more potent than orally. In any event, today the patient commits to continued adherence with his medications as he acknowledges that he does feel that they have been helpful to him. 12/31 -potential signs of non compliance 12/30 and 12/31, consider further titration of haldol deaconate as appropriate to help ensure as full of dose being obtained as possible. maintained plan of haldol IM injections for non compliance of haldol po doses 01/05- Switch Haldol to liquid due to cheeking. 01/06 -second dose of Haldol Decanoate as above. Will taper off of oral Haldol over the next 30-60 days, and ideally maintain him on injectable medication given his history of cheeking and noncompliance with oral medication. He continues to refuse clozapine, could consider the addition of an injectable atypical antipsychotic if Haldol Decanoate is insufficient to control symptoms. 01/09 -taking Haldol liquid, but refusing clozapine. Meeting help with the county to discuss potential diversion options, during which patient was delusional and demonstrated very poor insight. He continues to state he would not take medications after discharge. 01/12 - Given consistent refusal of scheduled clozapine since its initial administration, will discontinue scheduled dose as well as scheduled blood draws for CBCs 01/15 - Continue current medication and treatment plan - On line of sight, MNPR, and high elopement precautions due to ongoing antisocial behaviors (3) Substance abuse: 12/14 -patient is not forthcoming, but mother reports he has been abusing alcohol, cough syrup, diphenhydramine, and likely other substances. We will monitor for withdrawal symptoms, and as his psychosis improves, will provide psychoeducation about the risks of substance abuse and recommendations for abstinence. -Avoid controlled substances given high risk of abuse/misuse/negative outcomes. 12/15 -It is recognized that the patient has an extensive history of abusing chemical substances, and it is generally agreed that use of controlled substances does pose significant risk of abuse and other negative outcomes in the long-term. However, the patient's irritability and unwillingness to cooperate with essential medications, such as haloperidol, as well as his history of physical aggression towards others, may be mitigated by the temporary use of a benzodiazepine. Today, a single dose of lorazepam seems to have been effective in helping the patient maintain composure during an involuntary commitment hearing that did not go in his favor, and staff have noticed that he has been somewhat more cooperative today, possibly in response to the dose of lorazepam. Accordingly, staff will continue to offer the patient as needed lorazepam. 12/21 -admission drug screen was positive for benzodiazepines, with significantly elevated temazepam (> 2000) and elevated oxazepam levels. Although he denied taking benzodiazepines prior to admission, he clearly was accessing them somehow. 12/22 -the patient is able to give what may be referred to as "lip service" to the concept of abstinence from drugs of abuse, but he seems to have little or no insight into the risks associated with his abuse of mood altering chemical substances, particularly within the context of his psychiatric illness. Again, a whole will be to identify an aftercare placement that we will be able to monitor him more assiduously for access to abusable chemical substances, including prescription medications, alcohol, and other drugs of abuse. (4) Antisocial personality disorder: 12/14 -extensive, lifelong history provided by adoptive mother which reveals a pervasive pattern of disregard for and violation of the rights of others which started at age 8 or earlier, failure to conform to social norms with respect to lawful behaviors as indicated by repeatedly performing acts that are grounds for arrest, deceitfulness, impulsivity and failure to plan ahead, irritability and aggressiveness, reckless disregard for safety of self and others, consistent irresponsibility, and lack of remorse. 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 -Reviewed expectations with respect to behavior on the unit. 12/15 -The patient's history of antisocial behavior is noted, and antisocial personality will not be a focus of treatment during this hospitalization. However, the record indicates that the patient's antisocial behaviors, which are lifelong, are mitigated to some extent when he is being successfully treated for his psychotic disorder. Accordingly, the approach will be to address his antisocial behaviors by focusing on addressing his psychosis. 12/22 -The patient's long-standing history of antisocial behaviorbehavior which reportedly predates the onset of his symptoms of schizophreniahave not been a focus of treatment and are unlikely to change. Careful monitoring, diversion, containment to the degree possible, to containment of the most appropriate interventions for this problem. 01/11 - Pt made aware again of unit expectations. With evidence of patient stealing keys and causing damage to room items - he remains on a medically necessary private room. His room is to be searched twice daily to ensure any stolen, non-essential, or potentially hazardous items are not being accumulated to the point of causing potential harm. Continue to enforce clear boundaries. 01/15 - Line of sight, high elopement precautions, and MNPR due to ongoing display of antisocial behaviors while on unit Inventory Assets Strengths: Good physical health. Able to form alliances with certain peers. Concerned and supportive parents. Needs: Continued adherence with psychiatric medications. Sustained recovery from psychotic features. Risk Factors Assessment Male: Yes : Yes Do You Have Access To A Gun?: No Health Problems: Yes Mental Health Diagnoses: Yes Substance Use Disorders: Yes Previous Attempt: No Previous Psychiatric Hospitalization: Yes Hopelessness: No Smoker: Yes Protective Factors Assessment [facility] Beliefs: No : No Responsible for Young Children: No Employed: No Stable Relationships: No Supportive Family: Yes Good Rapport with Provider: No Absence of Any Risk Factors Above: No Interval History Identifying Information APRIL GONZALEZ is a 43-year-old M who lives in [place] with his parents, has a history of a psychotic disorder (specific diagnosis not yet known, but history of multiple previous hospitalizations including a 1 year state hospitalization in [place]), and was admitted on 12/14/18 03:41 on a 302 involuntary commitment for psychosis, treatment noncompliance, and erratic, unsafe behavior. He is on a 304 involuntary commitment as of 12/26/2018. Chief Complaint "I'm ok". 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 Sleep Information Total Hours of Sleep: 6 Sleep Comments: pt in "line of sight" during the night. pt on q-15 minute checks Meal Information Percent Meal Consumed - Breakfast: 100 Percent Meal Consumed - Lunch: 100 Percent Meal Consumed - Dinner: 50 Nutrition Comment: per meal record Subjective Subjective Patient was seen & assessed and interval progress reviewed with Treatment Team. Reviewed increased level of observation due to ongoing antisocial behaviors, having stolen a medications from the nurses station. EKG ordered yesterday after learning patient took ~80mg of hydroxyzine. Did not appear to have ingested other medications. Pt was seen today to assess progress since admission. He states he is "ok" today. Reporting having slept better last evening, but continues to desire to remain in bed "until I go home." Pt denies any concerns, and is not cooperative with a conversation regarding the status of 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 or delusions at this time. He remains irritable and guarded, not tolerating a prolonged conversation. Physical Exam Psychiatric Orientation: alert, oriented x 3 and + guarded (significantly); + uncooperative Apperance: + disheveled Eye Contact: + poor eye contact (doesn't look up from bed) Motor Behavior: no abnormal motor movements (observed while laying in bed) Speech: normal rate/rhythm/volume of speech (irritable tone); no pressured speech Affect: + blunted affect, + irritable affect and + constricted affect Mood: + irritable mood; no depressed mood and no anxious mood Thought Process: goal directed thought process (though goal is to "go home") and + concrete thought process; + thought process not clear or coherent Thought Content: + preoccupation (elopement), + cognitive distortions and reality based without delusions (none verbalized, limited willingness to participate in further discussion); not paranoid and no delusions Suicidal Thoughts: denies suicidal thoughts Homicidal Thoughts: denies homicidal thoughts Hallucinations: no auditory 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 (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) and no visual 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 Cognition: recent memory grossly intact, remote memory grossly intact, attention grossly intact and language grossly intact Estimated Intelligence: consistent with education level Insight: + severely impaired insight Judgement: + severely impaired judgement Vital Signs (Past 24 Hours) Last Vital Signs Temp 36.3 C L 01/15/19 06:45 Pulse 76 01/15/19 06:46 Resp 18 01/15/19 06:45 BP 117/77 01/15/19 06:46 Pulse Ox 97 12/14/18 03:38 Results & Data Current Inpatient Medications Current Inpatient Medications: Current Inpatient Medications Acetaminophen (Tylenol) 650 mg PO Q4H PRN PRN Reason: Headache or Minor Fever Stop: 02/09/19 08:29 Last Admin: 01/14/19 18:56 Dose: 650 mg Documented by: Al Hydrox/Mg Hydrox/Simethicone (Maalox) 30 ml PO Q4H PRN PRN Reason: GI Upset Stop: 02/09/19 08:29 Benztropine Mesylate (Cogentin) 1 mg PO BID PRN PRN Reason: akathisia Stop: 02/09/19 08:29 Last Admin: 01/14/19 13:25 Dose: 1 mg Documented by: Bismuth Subsalicylate (Kaopectate) 15 ml PO PRN PRN PRN Reason: Loose Stool Stop: 02/09/19 08:29 Docusate Sodium (Colace) 100 mg PO HS PRN PRN Reason: constipation Stop: 02/09/19 08:29 Haloperidol Decanoate (Haldol Decanoate) 200 mg IM Q28D@0900 [facility] Stop: 02/18/19 08:59 Haloperidol Lactate (Haldol Lactate) 10 mg PO QAM [facility] Stop: 02/05/19 08:59 Last Admin: 01/15/19 09:19 Dose: 10 mg Documented by: Haloperidol Lactate (Haldol Lactate) 10 mg PO Q4H PRN PRN Reason: Psychosis or agitation Stop: 02/09/19 08:29 Haloperidol Lactate (Haldol) 10 mg IM 0900,1600 PRN PRN Reason: refusal of PO Stop: 02/09/19 08:29 Haloperidol Lactate (Haldol) 10 mg IM Q4 PRN PRN Reason: psychosis or agitation Stop: 02/09/19 08:29 Lorazepam (Ativan) 0.5 mg PO Q8H PRN PRN Reason: Agitation Stop: 02/07/19 14:59 Last Admin: 01/14/19 18:56 Dose: 0.5 mg Documented by: Magnesium Hydroxide (Milk Of Magnesia) 30 ml PO DAILY PRN PRN Reason: Heartburn Stop: 02/09/19 08:29 Menthol (Nice) 1 be BUCCAL Q2H PRN PRN Reason: Sore Throat Stop: 02/09/19 08:29 Miscellaneous (Remove Nicoderm Patch) 1 ea N/A DAILY@2100 [facility] Stop: 02/09/19 20:59 Last Admin: 01/14/19 22:11 Dose: Not Given Documented by: Nicotine (Nicoderm Cq) 21 mg TD QAM [facility] Stop: 02/09/19 08:59 Last Admin: 01/15/19 09:23 Dose: Not Given Documented by: Nicotine Polacrilex (Nicorette 2mg) 1 piece MT UD PRN PRN Reason: Nicotine Withdrawal Stop: 02/09/19 08:34 Last Admin: 01/11/19 20:42 Dose: 1 piece Documented by: Sodium Chloride ([place] Nasal) 1 - 2 sprays NA PRN PRN PRN Reason: Nasal Dryness/Congestion Stop: 02/09/19 08:34 Post Discharge Appointments Primary Care Physician Name Of Family Doctor: Denies Therapist Name of Therapist: Denies Hearing Therapist Name of Hearing Therapist: [employer] Phone Number for Hearing Therapist: [phone] Case Management Appointment Comment: [address], [address], [place], [place] CPT Code CPT Code 75226
[2019-01-15] MEDS: LORazepam 0.5 MG TAB PO PRN (17:35)
[2019-01-15] MEDS: ACETAMINOPHEN 325 MG TAB PO PRN (20:41)
[2019-01-16] MEDS: HALOPERIDOL ORAL SOLN 2 MG/ML PO SCH (09:16)
[2019-01-16] MEDS: NICOTINE 21 MG/24 HR TDSY TD SCH (09:16)
[2019-01-16] MEDS: ACETAMINOPHEN 325 MG TAB PO PRN ×2 (10:16→20:22)
[2019-01-16] MEDS: LORazepam 0.5 MG TAB PO PRN ×2 (10:16→20:22)
--- NOTE | 2019-01-16 12:23 | Psychiatric Progress Note ---
Date of Service January 16, 2019 Impression / Recommendations Impression Patient's condition remains largely unchanged. Very limited participation in group and recreational programming, retreating to bed for the majority of the day. Continues to be compliant with scheduled haloperidol, but largely unwilling to participate in other aspects of treatment. . Given significant risk of harm to self or others if discharged to a setting without adequate aftercare and supervision, plan remains for patient to remain in 24-hour supervised treatment until acceptance at the [facility]. There is great concern about the patient's ability to function, not only taking care of his personal needs, but also to participate in a non-destructive manner if re- integrated into the community. If unable to solidify [facility] placement, he will require arrangement of extensive outpatient community supports in order to maintain a level of care necessary for him to succeed in the outpatient setting. At this time, ongoing inpatient mental health treatment and 24-hour supervision is medically necessary due to unwillingness to participate in treatment, inappropriate deceptive behavior on the unit, lack of insight into the severity of his condition, and ongoing risk of harm to self or others if discharged without an adequate safety and aftercare plan. Explore options for boarding home or personal fpc, as unclear of status of [facility] referral. Will need to consider other possible alternatives for housing and the addition of structure to his schedule. (1) Schizophrenia: 12/14 -patient is a poor historian, but mother provides historical information. 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 For now we will collect psychosis not otherwise specified. -Patient is refusing to sign releases for previous outpatient providers in [place], and staff contacted them but they refused to provide any information without a signed release. -Medically necessary private room due to psychosis, erratic and disorganized behavior, history of violence, and aggressive behavior and threats to harm others here in the hospital. -Start haloperidol 5 mg twice daily, as patient has a previous good response to Haldol Decanoate and clozapine. Recommend medications over objection once he is on a 303 involuntary commitment and has been seen by a second physician, as he has severe psychotic symptoms which are preventing him from accurately interpreting reality, influencing his behavior, and placing him at risk of harm to both himself and others as he has been acting on his delusions, experiencing auditory and visual 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, paranoia, engaging in unsafe behaviors including driving when he does not have a license or the knowledge to do so, abu sing substances, and has been threatening towards others. He demonstrates no insight into his condition, but available information indicates response to treatment with antipsychotic medications in the past. -Medically necessary private room due to psychosis, aggressive behavior, and threats to harm others. -We will need to check fasting lipid profile and glucose once he is cooperative. -Excused from groups from the time being until able to participate appropriately. -Refusing to sign releases for parents, but mother is petitioner, so can inform her of the 303 hearing. 12/15 -The patient did except a single dose of lorazepam this morning, and did seem to be somewhat more calm. He was mildly labile during his involuntary commitment hearing this morning, but managed to maintain control and was not aggressive during the hearing or upon learning that he had been retained by the sales officer. Accordingly, we will continue to offer him lorazepam, since this medication in his case does not seem to be disinhibiting and, at least today, appeared to have helped him manage angry impulses during his involuntary commitment hearing. -The treatment team and I agree that, if possible, we would like to convince the patient to voluntarily take oral medications. Reports are that this morning he came close to taking oral haloperidol, but at the last minute declined. He is telling us that he will consistently refused medications, but our hope is that as we are able to gain his trust he will become more cooperative. We will continue to try to convince the patient to take oral haloperidol, but if this is unsuccessful we will seek two physician approval of medication over objection and give Haldol 5 mg IM BID. 12/16--tolerating Haldol, titrate to 10 mg BID. 12/18 - Continue haldol 10 mg bid - Continue discussion about LAMA - Encourage better sleep hygiene, staying awake in the day to promote sleep at night. 12/19 - Patient allowed labs to be drawn. FBS 93, FLP WNL with the exception of triglycerides of 186. Counseled to avoid fatty red meats, saturated fats. 12/20 -Again discussed the recommendations for long-acting injectable antipsychotic medication with the patient, which he initially declined because he said medications are poison. He has a meeting with his family this afternoon, and I will order the first loading dose of Haldol Decanoate 50 mg IM to be administered this afternoon, and if he is unwilling to take it, we will likely need to proceed with medications over objection tomorrow. We will try to encourage him to accept the intervention, as he reportedly did fairly well on this medication in the past. 12/21 -proceed with medications over objection: Haldol Decanoate 100 mg IM today, and Haldol 10 mg IM for refusal of oral Haldol. He will need 100-200 mg of Haldol Decanoate every 4 weeks based on his current oral dose, so will continue oral haloperidol for now until we can monitor response to the decanoate. 12/22 -the patient received Haldol Decanoate intramuscularly today, as a medication over objection. He tolerated the injection well, and today tells me that he "feels pretty good." -Today, the patient's associations seemed to be fairly tight on examination. He tends to be somewhat concrete in his thinking, but, as above, he did seem able to understand our rationale for continuing inpatient treatment at this point. 12/23 - tolerating halol dec w/o EPS or other complaints. will need to consider reduction of oral dose in approx 1 week. 12/24 - pt remains less acutely behaviorally disturbed since Haldol dec injection last however evidenced mild acting out when physically uncomfortable today - will add standing docusate 100mg po qhs and encourage oral hydration today for complaint of hard stool - meeting w/ [facility] services tomorrow to explore dispo options 12/25 - Increase in irritability - Planning meeting held with [facility]: possibility for CRR vs state hospital - Continue current meds and encourage prns 12/26 - 304 granted. Meeting with [facility], patient and parents held yesterday: parents confirmed he cannot return home. Treatment team and [facility] recommends state hospitalization, as patient not appropriate for CRR placement due to severity of symptoms and unwillingness for outpatient treatment and medications. 12/27 - Continue current medication regimen - Orders placed for necessary EKG, TB skin test to accompany [facility] referral - Place on high elopement precautions last evening due to suspicious loitering at the entryway of the unit - Reviewed records from [facility] - previous diagnoses were schizoaffective disorder and substance abuse 12/28 - Continue current medication regimen - EKG and PPD completed yesterday - PPD will need read on 12/30 12/29 -Add clozapine 12.5 mg BID and increase as tolerated by 25 mg per day to a dose of 300 mg daily (in two divided dosages, or all at bedtime).' 12/30 -titrating clozapine to 12.5 am and 25mg hs for 12/30 with plan to increase to 25mg bid on 12/31 and likely further titration if tolerating -maintained Haldol decanoate and Haldol po unchanged for now, with consideration of weaning Haldol po dose if clozapine is effective ,, although pt appears to have history of both Haldol forms being rx'd while on past clozapine med trial. Pt has been observed by staff to be improving as obtaining medication of haldol (including the immediate IM doses) 12/31 close monitoring for checking, continue plan above for IM Haldol over objection if checking haldol scheduled doses. Maintain clozapine dosing plan for now with potential re-considering clozapine plan if compklaince issues are occuring. Consider further titration of haldol decanoate as appropaite. 01/01 - Patient refusing Clozaril. Will leave in place, but not force meds over objection for refusal - Increase Haldol to 10 mg AM and 15 mg HS, with meds over objection for refusal - Continue MNPR due to irritability and hx of violence 01/02 -continue oral haloperidol 10 mg every morning and 15 mg at bedtime (moved to later time to try to minimize sedation/spending excessive time in bed during the day), and Haldol decanoate, next injection due 01/19/2019. Continue Lorazepam as needed. -He continues to refuse clozapine. 01/03 - Continue current meds and plan - Continue MNPR in deference to history of violence toward others. 01/04 - Continue current meds and plan - Meeting scheduled with the [facility] to discuss disposition 01/05 - Change pills to liquid due to cheeking - Encourage patient to be out of bed and participating in his treatment - Planning meeting scheduled with the [facility] for next Saturday 01/06 -Patient agrees to a second Haldol Decanoate injection, 100 mg, with the hopes that we can taper him off oral haloperidol given his poor compliance. He has been on 25 mg p.o. daily, which is the equivalent of an initial dose of 500 mg decanoate (per UpToDate, dose of oral haloperidol > 10 mg and high risk of relapse, initiate dose at 20 times the daily oral dose). He got his initial Haldol Decanoate 100 mg on 12/22/2018. He will be due for his next injection on 01/19/2019, currently ordered for 200 mg, but may need to consider a higher dose given noncompliance with oral medication. Maintenance doses are typically 50- 200 mg. Will continue oral haloperidol liquid 10 mg every morning, but discontinue the 15 mg at bedtime dose. Oral haloperidol can be tapered over the period of the first 3 decanoate shots (60-90 days) depending on response. -Continue clozapine but decrease to 25 mg daily, as he has not been taking it, and continue to encourage him to try it, as it was reportedly beneficial in the past and stabilized him sufficiently to be discharged from the [facility] hospital. -Continue as needed medications (Lorazepam, benztropine, haloperidol, and hydroxyzine). 01/07 -continue current medications and plan. 01/08 - Continue current meds and plan - Diversion meeting with the [facility] scheduled for tomorrow. 01/09 -continue private room given antisocial behavior/stealing. Meeting held with the [facility], who do not feel he is appropriate for CRR placement and support state hospitalization. We have not yet received acceptance from [facility]. -Staff to search room daily and remove contraband, restrict patient's ability to keep items in his room due to repeated stealing and having access to items that could potentially be harmful, such as a large amount of hand associate broker. 01/10 -continue current plan. Coordinate with the [facility]. 52 - Continue current plan, awaiting acceptance and bed date from the [facility] - Although this is preferred plan, will need to arrange alternative options for appropriate discharge should bed date surpass ongoing criteria for inpatient admission 5 - Continue haloperidol 10mg qAM with scheduled injections of haloperidol decanoate - Given significant period of refusing scheduled clozapine - will cancel the medication and scheduled CBC blood draws - Awaiting acceptance to the [facility] and projected bed date - Continuing to work with [facility] resources should alternative arrangements be needed 56 - Continue current medication and treatment plan - On line of sight, MNPR, and high elopement precautions due to ongoing antisocial behaviors 57 - Continue current medication and treatment plan - Consider alternative housing options, boarding home or personal fpc to be explored (2) Noncompliance with medications: 12/14 -stopped his medications 6 months ago and has decompensated since. Would benefit from a long-acting injectable, and either long-term inpatient treatment at the [facility] or involuntary outpatient treatment.. 12/15 -The patient's psychosis and severely impaired insight seem to be making him and accessible to reason, regarding the essential importance of psychiatric medications. There is a past history of favorable response to haloperidol as well as to clozapine. It is agreed that the patient would in all likelihood benefit from a long-acting injectable antipsychotic medication, given his history of recurrent medication nonadherence. 12/16--currently taking PO for a few doses, is on extended involuntary commitment and clearly ongoing schizophrenia which will fail to improve for him to be able to provide self-care without ongoing treatments on inpatient unit and medications over objection. Without antipsychotic medication he is at significant risk of /serious disability and a danger to himself/others. Dr. Srinivasan could provide second opinion if he refuses PO med. 12/18- Patient refusing to consider LAMA at this time. Will continue to encourage 12/21 -patient continues to refuse Haldol Decanoate, and is now also refusing oral Haldol. We will proceed with medications over objection, as he has a diagnosis of primary thought disorder, has benefited from Haldol Decanoate in the past, he is actively delusional and is refusing medications due to psychotic thought processes, and is at risk of harm to both himself and others if he remains untreated. He has a significant history of violence tied to his delusions, and it will be important to get his symptoms adequately managed to decrease the risk of violence towards others here in the hospital. 12/22 -medication adherence is most certainly going issue with this patient. We are recommending the continued use of Depo forms of antipsychotic medications, but, in the past, the patient has simply refused to return to the office of the healthcare professional who is administering the sectionas was the case last year when, after doing reasonably well, he stopped going for treatment, and stopped excepting medications. For this reason, we are carefully looking for a supportive living setting for this patient, preferably one that has the resources necessary to assist the resistant, not adherent to patient. 12/24 - remains better compliant with PO meds 12/25 - Takes meds when he thinks he needs them, but voiced some question about taking anything regularly after discharge. 12/29 -the patient refused a dose of haloperidol yesterday and received haloperidol 10 mg intramuscularly over objection from disease no holes were required and the patient was cooperative with the injection closed with disease. Afterwards, he wondered out loud why he had refused the medication, knowing that he would get it "one way or the other." Because the patient seemed to have responded well, in terms of his disorganized thinking, to the intramuscular dose of haloperidol, there has been some discussion in the team regarding the question of "cheeking" his oral medications. However, the explanation may be that haloperidol 10 mg IM is more potent than orally. In any event, today the patient commits to continued adherence with his medications as he acknowledges that he does feel that they have been helpful to him. 12/31 -potential signs of non compliance 12/30 and 12/31, consider further titration of haldol deaconate as appropriate to help ensure as full of dose being obtained as possible. maintained plan of haldol IM injections for non compliance of haldol po doses 01/05- Switch Haldol to liquid due to cheeking. 01/06 -second dose of Haldol Decanoate as above. Will taper off of oral Haldol over the next 30-60 days, and ideally maintain him on injectable medication given his history of cheeking and noncompliance with oral medication. He continues to refuse clozapine, could consider the addition of an injectable atypical antipsychotic if Haldol Decanoate is insufficient to control symptoms. 01/09 -taking Haldol liquid, but refusing clozapine. Meeting help with the county to discuss potential diversion options, during which patient was delusional and demonstrated very poor insight. He continues to state he would not take medications after discharge. 01/12 - Given consistent refusal of scheduled clozapine since its initial administration, will discontinue scheduled dose as well as scheduled blood draws for CBCs (3) Substance abuse: 12/14 -patient is not forthcoming, but mother reports he has been abusing alcohol, c ough syrup, diphenhydramine, and likely other substances. We will monitor for withdrawal symptoms, and as his psychosis improves, will provide psychoeducation about the risks of substance abuse and recommendations for abstinence. -Avoid controlled substances given high risk of abuse/misuse/negative outcomes. 12/15 -It is recognized that the patient has an extensive history of abusing chemical substances, and it is generally agreed that use of controlled substances does pose significant risk of abuse and other negative outcomes in the long-term. However, the patient's irritability and unwillingness to cooperate with essential medications, such as haloperidol, as well as his history of physical aggression towards others, may be mitigated by the temporary use of a benzodiazepine. Today, a single dose of lorazepam seems to have been effective in helping the patient maintain composure during an involuntary commitment hearing that did not go in his favor, and staff have noticed that he has been somewhat more cooperative today, possibly in response to the dose of lorazepam. Accordingly, staff will continue to offer the patient as needed lorazepam. 12/21 -admission drug screen was positive for benzodiazepines, with significantly elevated temazepam (> 2000) and elevated oxazepam levels. Although he denied taking benzodiazepines prior to admission, he clearly was accessing them someh ow. 12/22 -the patient is able to give what may be referred to as "lip service" to the concept of abstinence from drugs of abuse, but he seems to have little or no insight into the risks associated with his abuse of mood altering chemical substances, particularly within the context of his psychiatric illness. Again, a whole will be to identify an aftercare placement that we will be able to monitor him more assiduously for access to abusable chemical substances, including prescription medications, alcohol, and other drugs of abuse. (4) Antisocial personality disorder: 12/14 -extensive, lifelong history provided by adoptive mother which reveals a pervasive pattern of disregard for and violation of the rights of others which started at age 8 or earlier, failure to conform to social norms with respect to lawful behaviors as indicated by repeatedly performing acts that are grounds for arrest, deceitfulness, impulsivity and failure to plan ahead, irritability and aggressiveness, reckless disregard for safety of self and others, consistent irresponsibility, and lack of remorse. 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 -Reviewed expectations with respect to behavior on the unit. 12/15 -The patient's history of antisocial behavior is noted, and antisocial personality will not be a focus of treatment during this hospitalization. However, the record indicates that the patient's antisocial behaviors, which are lifelong, are mitigated to some extent when he is being successfully treated for his psychotic disorder. Accordingly, the approach will be to address his antisocial behaviors by focusing on addressing his psychosis. 12/22 -The patient's long-standing history of antisocial behaviorbehavior which reportedly predates the onset of his symptoms of schizophreniahave not been a focus of treatment and are unlikely to change. Careful monitoring, diversion, containment to the degree possible, to containment of the most appropriate interventions for this problem. 01/11 - Pt made aware again of unit expectations. With evidence of patient stealing keys and causing damage to room items - he remains on a medically necessary private room. His room is to be searched twice daily to ensure any stolen, non-essential, or potentially hazardous items are not being accumulated to the point of causing potential harm. Continue to enforce clear boundaries. 01/15 - Line of sight, high elopement precautions, and MNPR due to ongoing display of antisocial behaviors while on unit Inventory Assets Strengths: Good physical health. Able to form alliances with certain peers. Concerned and supportive parents. Needs: Continued adherence with psychiatric medications. Sustained recovery from psychotic features. Risk Factors Assessment Male: Yes : Yes Do You Have Access To A Gun?: No Health Problems: Yes Mental Health Diagnoses: Yes Substance Use Disorders: Yes Previous Attempt: No Previous Psychiatric Hospitalization: Yes Hopelessness: No Smoker: Yes Protective Factors Assessment Faith Beliefs: No : No Responsible for Young Children: No Employed: No Stable Relationships: No Supportive Family: Yes Good Rapport with Provider: No Absence of Any Risk Factors Above: No Interval History Identifying Information APRIL GONZALEZ is a 43-year-old M who lives in [place] with his parents, has a history of a psychotic disorder (specific diagnosis not yet known, but history of multiple previous hospitalizations including a 1 year state hospitalization in [place]), and was admitted on 12/14/18 03:41 on a 302 involuntary commitment for psychosis, treatment noncompliance, and erratic, unsafe behavior. He is on a 304 involuntary commitment as of 12/26/2018. Chief Complaint "Hmm? Fine." Review of Systems Notes Constitutional: reports fatigue Cardiovascular: denied Respiratory: denied Gastrointestinal: denied Neurological: denied Psychiatric: denies symptoms other than stated above Total of at least 10 systems reviewed, pertinent positives as above and in HPI. Sleep Information Total Hours of Sleep: 9.25 Sleep Comments: pt on q-15 minute checks. pt remained in room all shift with "line of sight" Meal Information Percent Meal Consumed - Breakfast: 0 Percent Meal Consumed - Lunch: 0 Percent Meal Consumed - Dinner: 100 Nutrition Comment: per meal record Subjective Subjective Patient was seen & assessed and interval progress reviewed with Nursing. Staff report the patient was out of his room only for dinner yesterday, remaining in bed the majority of the day. Patient refused both breakfast and lunch yesterday. Meeting was held yesterday with Lupe Baugh and Compa Epperson from the base service unit with discussion regarding options for patient to be supported and reentry to the community. Personal care and boarding homes were discussed. Patient was seen today to assess progress since admission. He is continued to retreat to bed and is only minimally willing to participate in assessment today. Patient states he is "fine" and reports plan to continue to sleep, stating "I want to go home." Reviewed conversation regarding boarding homes, however patient states "it is too expensive." Patient was encouraged to attend groups today, and spend greater time out of bed. Patient states he does not remember if he ate yesterday. He denies any needs or concerns at this time. Physical Exam Psychiatric Orientation: alert, oriented x 3 and + guarded (significantly); + uncooperative Apperance: appropriately dressed and + disheveled; + inappropriately groomed Eye Contact: + poor eye contact (no contact at all with provider) Motor Behavior: steady gait and station, no abnormal motor movements (observed while laying in bed) and + psychomotor retardation Speech: normal rate/rhythm/volume of speech (irritable tone); no pressured speech Affect: + flat affect, + irritable affect and + constricted affect Mood: + irritable mood; no depressed mood and no anxious mood "Fine" Thought Process: + concrete thought process; + thought process not clear or coherent Thought Content: + preoccupation (with going home), + cognitive distortions and reality based without delusions (none verbalized, limited willingness to participate in further discussion); not paranoid Suicidal Thoughts: denies suicidal thoughts Homicidal Thoughts: denies homicidal thoughts Hallucinations: no auditory 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 (unreliable speech writer) and no visual 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 Cognition: recent memory grossly intact, remote memory grossly intact, attention grossly intact and language grossly intact Estimated Intelligence: consistent with education level Insight: + severely impaired insight Judgement: + severely impaired judgement Vital Signs (Past 24 Hours) Last Vital Signs Temp 36.3 C L 01/15/19 06:45 Pulse 76 01/15/19 06:46 Resp 18 01/15/19 06:45 BP 117/77 01/15/19 06:46 Pulse Ox 97 12/14/18 03:38 Results & Data Current Inpatient Medications Current Inpatient Medications: Current Inpatient Medications Acetaminophen (Tylenol) 650 mg PO Q4H PRN PRN Reason: Headache or Minor Fever Stop: 02/09/19 08:29 Last Admin: 01/16/19 10:16 Dose: 650 mg Documented by: Al Hydrox/Mg Hydrox/Simethicone (Maalox) 30 ml PO Q4H PRN PRN Reason: GI Upset Stop: 02/09/19 08:29 Benztropine Mesylate (Cogentin) 1 mg PO BID PRN PRN Reason: akathisia Stop: 02/09/19 08:29 Last Admin: 01/14/19 13:25 Dose: 1 mg Documented by: Bismuth Subsalicylate (Kaopectate) 15 ml PO PRN PRN PRN Reason: Loose Stool Stop: 02/09/19 08:29 Docusate Sodium (Colace) 100 mg PO HS PRN PRN Reason: constipation Stop: 02/09/19 08:29 Haloperidol Decanoate (Haldol Decanoate) 200 mg IM Q28D@0900 [facility] Stop: 02/18/19 08:59 Haloperidol Lactate (Haldol Lactate) 10 mg PO QAM [facility] Stop: 02/05/19 08:59 Last Admin: 01/16/19 09:16 Dose: 10 mg Documented by: Haloperidol Lactate (Haldol Lactate) 10 mg PO Q4H PRN PRN Reason: Psychosis or agitation Stop: 02/09/19 08:29 Haloperidol Lactate (Haldol) 10 mg IM 0900,1600 PRN PRN Reason: refusal of PO Stop: 02/09/19 08:29 Haloperidol Lactate (Haldol) 10 mg IM Q4 PRN PRN Reason: psychosis or agitation Stop: 02/09/19 08:29 Lorazepam (Ativan) 0.5 mg PO Q8H PRN PRN Reason: Agitation Stop: 02/07/19 14:59 Last Admin: 01/16/19 10:16 Dose: 0.5 mg Documented by: Magnesium Hydroxide (Milk Of Magnesia) 30 ml PO DAILY PRN PRN Reason: Heartburn Stop: 02/09/19 08:29 Menthol (Nice) 1 be BUCCAL Q2H PRN PRN Reason: Sore Throat Stop: 02/09/19 08:29 Miscellaneous (Remove Nicoderm Patch) 1 ea N/A DAILY@2100 [facility] Stop: 02/09/19 20:59 Last Admin: 01/15/19 20:41 Dose: Not Given Documented by: Nicotine (Nicoderm Cq) 21 mg TD QAM [facility] Stop: 02/09/19 08:59 Last Admin: 01/16/19 09:16 Dose: Not Given Documented by: Nicotine Polacrilex (Nicorette 2mg) 1 piece MT UD PRN PRN Reason: Nicotine Withdrawal Stop: 02/09/19 08:34 Last Admin: 01/11/19 20:42 Dose: 1 piece Documented by: Sodium Chloride ([place] Nasal) 1 - 2 sprays NA PRN PRN PRN Reason: Nasal Dryness/Congestion Stop: 02/09/19 08:34 Post Discharge Appointments Primary Care Physician Name Of Family Doctor: Denies Therapist Name of Therapist: Denies Business Specialist Name of Business Specialist: [employer] Phone Number for Business Specialist: [phone] Case Management Appointment Comment: [id number] [facility], [address], [place], [place] CPT Code CPT Code 40894
[2019-01-16] MEDS: BENZTROPINE MESYLATE 1 MG TAB PO PRN (19:05)
--- NOTE | 2019-01-17 08:36 | Psychiatric Progress Note ---
Date of Service January 17, 2019 Impression / Recommendations Impression Patient remains paranoid and delusional, isolating his room with little to no participation in group and recreational programming, retreating to bed for the majority of the day. He is taking liquid haloperidol, and will receive Haldol decanoate on 01/19/2018. His mother reports he has been leaving delusional and at times nonsensical messages for her, and she is very concerned about him and supports long-term treatment at the [facility]. He continues to demonstrate socially apathy and a complete lack of insight into the need for treatment for his psychotic disorder, and due to his risk factors, remains at risk of harm to both himself and others and in need of inpatient treatment. He was referred to [facility] on 12/28/2018, and we have not yet received a response. Social work, his mother who is his rep payee, and the county have been involved in exploring possible diversion options, should he improved sufficiently to be appropriate for discharge to the community (1) Schizophrenia: 12/14 -patient is a poor historian, but mother provides historical information. 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 For now we will collect psychosis not otherwise specified. -Patient is refusing to sign releases for previous outpatient providers in [place], and staff contacted them but they refused to provide any information without a signed release. -Medically necessary private room due to psychosis, erratic and disorganized behavior, history of violence, and aggressive behavior and threats to harm others here in the hospital. -Start haloperidol 5 mg twice daily, as patient has a previous good response to Haldol Decanoate and clozapine. Recommend medications over objection once he is on a 303 involuntary commitment and has been seen by a second physician, as he has severe psychotic symptoms which are preventing him from accurately interpreting reality, influencing his behavior, and placing him at risk of harm to both himself and others as he has been acting on his delusions, experiencing auditory and visual 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, paranoia, engaging in unsafe behaviors including driving when he does not have a license or the knowledge to do so, abusing substances, and has been threatening towards others. He demonstrates no insight into his condition, but available information indicates response to treatment with antipsychotic medications in the past. -Medically necessary private room due to psychosis, aggressive behavior, and threats to harm others. -We will need to check fasting lipid profile and glucose once he is cooperative. -Excused from groups from the time being until able to participate appropriately. -Refusing to sign releases for parents, but mother is petitioner, so can inform her of the 303 hearing. 12/15 -The patient did accept a single dose of lorazepam this morning, and did seem to be somewhat more calm. He was mildly labile during his involuntary commitment hearing this morning, but managed to maintain control and was not aggressive during the hearing or upon learning that he had been retained by the parking regulation enforcement officer. Accordingly, we will continue to offer him lorazepam, since this medication in his case does not seem to be disinhibiting and, at least today, appeared to have helped him manage angry impulses during his involuntary commitment hearing. -The treatment team and I agree that, if possible, we would like to convince the patient to voluntarily take oral medications. Reports are that this morning he came close to taking oral haloperidol, but at the last minute declined. He is telling us that he will consistently refused medications, but our hope is that as we are able to gain his trust he will become more cooperative. We will continue to try to convince the patient to take oral haloperidol, but if this is unsuccessful we will seek two physician approval of medication over objection and give Haldol 5 mg IM BID. 12/16--tolerating Haldol, titrate to 10 mg BID. 12/18 - Continue haldol 10 mg bid - Continue discussion about LAMA - Encourage better sleep hygiene, staying awake in the day to promote sleep at night. 12/19 - Patient allowed labs to be drawn. FBS 93, FLP WNL with the exception of triglycerides of 186. Counseled to avoid fatty red meats, saturated fats. 12/20 -Again discussed the recommendations for long-acting injectable antipsychotic medication with the patient, which he initially declined because he said medications are poison. He has a meeting with his family this afternoon, and I will order the first loading dose of Haldol Decanoate 50 mg IM to be administered this afternoon, and if he is unwilling to take it, we will likely need to proceed with medications over objection tomorrow. We will try to encourage him to accept the intervention, as he reportedly did fairly well on this medication in the past. 12/21 -proceed with medications over objection: Haldol Decanoate 100 mg IM today, and Haldol 10 mg IM for refusal of oral Haldol. He will need 100-200 mg of Haldol Decanoate every 4 weeks based on his current oral dose, so will continue oral haloperidol for now until we can monitor response to the decanoate. 12/22 -the patient received Haldol Decanoate intramuscularly today, as a medication over objection. He tolerated the injection well, and today tells me that he "feels pretty good." -Today, the patient's associations seemed to be fairly tight on examination. He tends to be somewhat concrete in his thinking, but, as above, he did seem able to understand our rationale for continuing inpatient treatment at this point. 12/23 - tolerating halol dec w/o EPS or other complaints. will need to consider reduction of oral dose in approx 1 week. 12/24 - pt remains less acutely behaviorally disturbed since Haldol dec injection last however evidenced mild acting out when physically uncomfortable today - will add standing docusate 100mg po qhs and encourage oral hydration today for complaint of hard stool - meeting w/ [facility] services tomorrow to explore dispo options 12/25 - Increase in irritability - Planning meeting held with [facility]: possibility for CRR vs state hospital - Continue current meds and encourage prns 12/26 - 304 granted. Meeting with [facility], patient and parents held yesterday: parents confirmed he cannot return home. Treatment team and [facility] recommends state hospitalization, as patient not appropriate for CRR placement due to severity of symptoms and unwillingness for outpatient treatment and medications. 12/27 - Continue current medication regimen - Orders placed for necessary EKG, TB skin test to accompany [place] referral - Place on high elopement precautions last evening due to suspicious loit ering at the entryway of the unit - [facility] - previous diagnoses were schizoaffective disorder and substance abuse 12/28 - Continue current medication regimen - EKG and PPD completed yesterday - PPD will need read on 12/30 12/29 -Add clozapine 12.5 mg BID and increase as tolerated by 25 mg per day to a dose of 300 mg daily (in two divided dosages, or all at bedtime).' 12/30 -titrating clozapine to 12.5 am and 25mg hs for 12/30 with plan to increase to 25mg bid on 12/31 and likely further titration if tolerating -maintained Haldol decanoate and Haldol po unchanged for now, with consideration of weaning Haldol po dose if clozapine is effective ,, although pt appears to have history of both Haldol forms being rx'd while on past clozapine med trial. Pt has been observed by staff to be improving as obtaining medication of haldol (including the immediate IM doses) 12/31 close monitoring for checking, continue plan above for IM Haldol over obj ection if checking haldol scheduled doses. Maintain clozapine dosing plan for now with potential re-considering clozapine plan if compklaince issues are occuring. Consider further titration of haldol decanoate as appropaite. 01/01 - Patient refusing Clozaril. Will leave in place, but not force meds over objection for refusal - Increase Haldol to 10 mg AM and 15 mg HS, with meds over objection for refusal - Continue MNPR due to irritability and hx of violence 01/02 -continue oral haloperidol 10 mg every morning and 15 mg at bedtime (moved to later time to try to minimize sedation/spending excessive time in bed during the day), and Haldol decanoate, next injection due 01/19/2019. Continue Lorazepam as needed. -He continues to refuse clozapine. 01/03 - Continue current meds and plan - Continue MNPR in deference to history of violence toward others. 01/04 - Continue current meds and plan - Meeting scheduled with the [facility] to discuss disposition 01/05 - Change pills to liquid due to cheeking - Encourage patient to be out of bed and participating in his treatment - Planning meeting scheduled with the [facility] for next Saturday 01/06 -Patient agrees to a second Haldol Decanoate injection, 100 mg, with the hopes that we can taper him off oral haloperidol given his poor compliance. He has been on 25 mg p.o. daily, which is the equivalent of an initial dose of 500 mg decanoate (per UpToDate, dose of oral haloperidol > 10 mg and high risk of relapse, initiate dose at 20 times the daily oral dose). He got his initial Haldol Decanoate 100 mg on 12/22/2018. He will be due for his next injection on 01/19/2019, currently ordered for 200 mg, but may need to consider a higher dose given noncompliance with oral medication. Maintenance doses are typically 50- 200 mg. Will continue oral haloperidol liquid 10 mg every morning, but discontinue the 15 mg at bedtime dose. Oral haloperidol can be tapered over the period of the first 3 decanoate shots (60-90 days) depending on response. -Continue clozapine but decrease to 25 mg daily, as he has not been taking it, and continue to encourage him to try it, as it was reportedly beneficial in the past and stabilized him sufficiently to be discharged from the [facility] hospital. -Continue as needed medications (Lorazepam, benztropine, haloperidol, and hydroxyzine). 01/07 -continue current medications and plan. 01/08 - Continue current meds and plan - Diversion meeting with the [facility] scheduled for tomorrow. 01/09 -continue private room given antisocial behavior/stealing. Meeting held with the [facility], who do not feel he is appropriate for CRR placement and support state hospitalization. We have not yet received acceptance from [facility]. 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 01/10 -continue current plan. Coordinate with the [facility]. 01/11 - Continue current plan, awaiting acceptance and bed date from the [facility] - Although this is preferred plan, will need to arrange alternative options for appropriate discharge should bed date surpass ongoing criteria for inpatient admission 5 - Continue haloperidol 10mg qAM with scheduled injections of haloperidol decanoate - Given significant period of refusing scheduled clozapine - will cancel the medication and scheduled CBC blood draws - Awaiting acceptance to the [facility] and projected bed date - Continuing to work with [facility] resources should alternative arrangements be needed 5 - Continue current medication and treatment plan - On line of sight, MNPR, and high elopement precautions due to ongoing antisocial behaviors 5 - Continue current medication and treatment plan - Consider alternative housing options, boarding home or personal snf to be explored 5 -continue current medications and plan. Patient Present on Admission?: Yes (2) Noncompliance with medications: 12/14 -stopped his medications 6 months ago and has decompensated since. Would benefit from a long-acting injectable, and either long-term inpatient treatment at the [facility] or involuntary outpatient treatment.. 12/15 -The patient's psychosis and severely impaired insight seem to be making him and accessible to reason, regarding the essential importance of psychiatric medications. There is a past history of favorable response to haloperidol as well as to clozapine. It is agreed that the patient would in all likelihood benefit from a long-acting injectable antipsychotic medication, given his history of recurrent medication nonadherence. 12/16--currently taking PO for a few doses, is on extended involuntary commitment and clearly ongoing schizophrenia which will fail to improve for him to be able to provide self-care without ongoing treatments on inpatient unit and medications over objection. Without antipsychotic medication he is at significant risk of /serious disability and a danger to himself/others. Dr. Srinivasan could provide second opinion if he refuses PO med. 12/18- Patient refusing to consider LAMA at this time. Will continue to encourage 12/21 -patient continues to refuse Haldol Decanoate, and is now also refusing oral Haldol. We will proceed with medications over objection, as he has a diagnosis of primary thought disorder, has benefited from Haldol Decanoate in the past, he is actively delusional and is refusing medications due to psychotic thought processes, and is at risk of harm to both himself and others if he remains untreated. He has a significant history of violence tied to his delusions, and it will be important to get his symptoms adequately managed to decrease the risk of violence towards others here in the hospital. 12/22 -medication adherence is most certainly going issue with this patient. We are recommending the continued use of Depo forms of antipsychotic medications, but, in the past, the patient has simply refused to return to the office of the healthcare professional who is administering the sectionas was the case last year when, after doing reasonably well, he stopped going for treatment, and stopped excepting medications. For this reason, we are carefully looking for a supportive living setting for this patient, preferably one that has the resources necessary to assist the resistant, not adherent to patient. 12/24 - remains better compliant with PO meds 12/25 - Takes meds when he thinks he needs them, but voiced some question about taking anything regularly after discharge. 12/29 -the patient refused a dose of haloperidol yesterday and received haloperidol 10 mg intramuscularly over objection from disease no holes were required and the patient was cooperative with the injection closed with disease. Afterwards, he wondered out loud why he had refused the medication, knowing that he would get it "one way or the other." Because the patient seemed to have responded well, in terms of his disorganized thinking, to the intramuscular dose of haloperidol, there has been some discussion in the team regarding the question of "cheeking" his oral medications. However, the explanation may be that haloperidol 10 mg IM is more potent than orally. In any event, today the patient commits to continued adherence with his medications as he acknowledges that he does feel that they have been helpful to him. 12/31 -potential signs of non compliance 12/30 and 12/31, consider further titration of haldol deaconate as appropriate to help ensure as full of dose being obtained as possible. maintained plan of haldol IM injections for non compliance of haldol po doses 01/05- Switch Haldol to liquid due to cheeking. 01/06 -second dose of Haldol Decanoate as above. Will taper off of oral Haldol over the next 30-60 days, and ideally maintain him on injectable medication given his history of cheeking and noncompliance with oral medication. He continues to refuse clozapine, could consider the addition of an injectable atypical antipsychotic if Haldol Decanoate is insufficient to control symptoms. 01/09 -taking Haldol liquid, but refusing clozapine. Meeting help with the county to discuss potential diversion options, during which patient was delusional and demonstrated very poor insight. He continues to state he would not take medications after discharge. 01/12 - Given consistent refusal of scheduled clozapine since its initial administration, will discontinue scheduled dose as well as scheduled blood draws for CBCs (3) Substance abuse: 12/14 -patient is not forthcoming, but mother reports he has been abusing alcohol, cough syrup, diphenhydramine, and likely other substances. We will monitor for withdrawal symptoms, and as his psychosis improves, will provide psychoeducation about the risks of substance abuse and recommendations for abstinence. -Avoid controlled substances given high risk of abuse/misuse/negative outcomes. 12/15 -It is recognized that the patient has an extensive history of abusing niki mical substances, and it is generally agreed that use of controlled substances does pose significant risk of abuse and other negative outcomes in the long- term. However, the patient's irritability and unwillingness to cooperate with essential medications, such as haloperidol, as well as his history of physical aggression towards others, may be mitigated by the temporary use of a benzodiazepine. Today, a single dose of lorazepam seems to have been effective in helping the patient maintain composure during an involuntary commitment hearing that did not go in his favor, and staff have noticed that he has been somewhat more cooperative today, possibly in response to the dose of lorazepam. Accordingly, staff will continue to offer the patient as needed lorazepam. 12/21 -admission drug screen was positive for benzodiazepines, with significantly elevated temazepam (> 2000) and elevated oxazepam levels. Although he denied taking benzodiazepines prior to admission, he clearly was accessing them somehow. 12/22 -the patient is able to give what may be referred to as "lip service" to the concept of abstinence from drugs of abuse, but he seems to have little or no insight into the risks associated with his abuse of mood altering chemical substances, particularly within the context of his psychiatric illness. Again, a whole will be to identify an aftercare placement that we will be able to monitor him more assiduously for access to abusable chemical substances, including prescription medications, alcohol, and other drugs of abuse. (4) Antisocial personality disorder: 12/14 -extensive, lifelong history provided by adoptive mother which reveals a pervasive pattern of disregard for and violation of the rights of others which started at age 8 or earlier, failure to conform to social norms with respect to lawful behaviors as indicated by repeatedly performing acts that are grounds for arrest, deceitfulness, impulsivity and failure to plan ahead, irritability and aggressiveness, reckless disregard for safety of self and others, consistent irresponsibility, and lack of remorse. 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 -Reviewed expectations with respect to behavior on the unit. 12/15 -The patient's history of antisocial behavior is noted, and antisocial personality will not be a focus of treatment during this hospitalization. However, the record indicates that the patient's antisocial behaviors, which are lifelong, are mitigated to some extent when he is being successfully treated for his psychotic disorder. Accordingly, the approach will be to address his antisocial behaviors by focusing on addressing his psychosis. 12/22 -The patient's long-standing history of antisocial behaviorbehavior which reportedly predates the onset of his symptoms of schizophreniahave not been a focus of treatment and are unlikely to change. Careful monitoring, diversion, containment to the degree possible, to containment of the most appropriate interventions for this problem. 01/11 - Pt made aware again of unit expectations. With evidence of patient stealing keys and causing damage to room items - he remains on a medically necessary private room. His room is to be searched twice daily to ensure any stolen, non-essential, or potentially hazardous items are not being accumulated to the point of causing potential harm. Continue to enforce clear boundaries. 01/15 - Line of sight, high elopement precautions, and MNPR due to attempts to elope and repeatedly stealing and hiding items on the unit. Stole another patient's liquid medication off the med cart in the nurses' station and took 80- 100mg hydroxyzine, hid liquid citalopram in his room. Inventory Assets Strengths: Good physical health. Able to form alliances with certain peers. Concerned and supportive parents. Needs: Continued adherence with psychiatric medications, compliance with outpat ient treatment, engagement in treatment, sobriety Risk Factors Assessment Male: Yes : Yes Do You Have Access To A Gun?: No Health Problems: Yes Mental Health Diagnoses: Yes Substance Use Disorders: Yes Previous Attempt: No Previous Psychiatric Hospitalization: Yes Hopelessness: No Smoker: Yes Protective Factors Assessment [employer] Beliefs: No : No Responsible for Young Children: No Employed: No Stable Relationships: No Supportive Family: Yes Good Rapport with Provider: No Absence of Any Risk Factors Above: No Interval History Identifying Information APRIL GONZALEZ is a 43-year-old M who lives in [place] with his parents, has a history of a psychotic disorder (specific diagnosis not yet known, but history of multiple previous hospitalizations including a 1 year state hospitalization in [place]), and was admitted on 12/14/18 03:41 on a 302 involuntary commitment for psychosis, treatment noncompliance, and erratic, unsafe behavior. He is on a 304 involuntary commitment as of 12/26/2018. Chief Complaint "Just tired". Review of Systems Notes Denies pain, URI symptoms, muscle tension/tremor, and medication side effects (although reported to staff yesterday he felt restless and got benztropine) Sleep Information Total Hours of Sleep: 4.25 Sleep Comments: pt on q-15 minute checks. pt on "line of sight" during the night. Meal Information Percent Meal Consumed - Breakfast: 0 Percent Meal Consumed - Lunch: 100 Percent Meal Consumed - Dinner: 100 Nutrition Comment: per meal record Subjective Subjective Patient was seen & assessed and interval progress reviewed with Treatment Team. Staff report he is isolating in his room, refusing groups, and remains on line of sight with twice daily contraband checks. He was referred to the [facility] on 12/28/18 and we have not received a response from them yet. Social work spoke with his mother to explore diversion housing options, and found the [facility] is affordable given his social security income. The social services specialist spoke with his mother, who is his rep payee. She expressed concerns that he would not take medication if discharged from the hospital, based on his history, said that he had been leaving incoherent messages for her, and told her there was a conspiracy against him on the unit because he is an "out of thomas," and that he is being hidden on the unit. On my assessment, he was seen in his room, where he is in bed, with his head covered by blankets. He is poorly engaged, and give short answers to questions. He states his mood is "fine," and that he is spending a lot of time in bed because he is tired. He denies problems with sleep, appetite, mood, and 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. He expresses paranoia and wants to know when he will be discharged. He is unable to give any kind of discharge plan, says he does not know where he would live, or how he would get to appointments. He continues to state he does not have a mental illness or need medication/treatment. Physical Exam Mental Examination Patient lying in bed in his room, with covers pulled over his head. Malodorous, no eye contact. Responds to questions briefly, but poorly engaged in the in [place] and not necessarily forthcoming with information. Gait and station not observed; no abnormal movements noted. Mood is "fine," but affect is restricted to depressed and irritable and is incongruent with stated mood. Speech is minimal, monotone, nonspontaneous. Thoughts are concrete and goal-directed, paucity of thought content. Denies SI, HI, 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; endorses paranoia and delusions. Insight and judgment are severely impaired. Vital Signs (Past 24 Hours) Last Vital Signs Temp 36.3 C L 01/15/19 06:45 Pulse 76 01/15/19 06:46 Resp 18 01/15/19 06:45 BP 117/77 01/15/19 06:46 Pulse Ox 97 12/14/18 03:38 Results & Data Current Inpatient Medications Current Inpatient Medications: Current Inpatient Medications Acetaminophen (Tylenol) 650 mg PO Q4H PRN PRN Reason: Headache or Minor Fever Stop: 02/09/19 08:29 Last Admin: 01/16/19 20:22 Dose: 650 mg Documented by: Al Hydrox/Mg Hydrox/Simethicone (Maalox) 30 ml PO Q4H PRN PRN Reason: GI Upset Stop: 02/09/19 08:29 Benztropine Mesylate (Cogentin) 1 mg PO BID PRN PRN Reason: akathisia Stop: 02/09/19 08:29 Last Admin: 01/16/19 19:05 Dose: 1 mg Documented by: Bismuth Subsalicylate (Kaopectate) 15 ml PO PRN PRN PRN Reason: Loose Stool Stop: 02/09/19 08:29 Docusate Sodium (Colace) 100 mg PO HS PRN PRN Reason: constipation Stop: 02/09/19 08:29 Haloperidol Decanoate (Haldol Decanoate) 200 mg IM Q28D@0900 [facility] Stop: 02/18/19 08:59 Haloperidol Lactate (Haldol Lactate) 10 mg PO QAM [facility] Stop: 02/05/19 08:59 Last Admin: 01/16/19 09:16 Dose: 10 mg Documented by: Haloperidol Lactate (Haldol Lactate) 10 mg PO Q4H PRN PRN Reason: Psychosis or agitation Stop: 02/09/19 08:29 Haloperidol Lactate (Haldol) 10 mg IM 0900,1600 PRN PRN Reason: refusal of PO Stop: 02/09/19 08:29 Haloperidol Lactate (Haldol) 10 mg IM Q4 PRN PRN Reason: psychosis or agitation Stop: 02/09/19 08:29 Lorazepam (Ativan) 0.5 mg PO Q8H PRN PRN Reason: Agitation Stop: 02/07/19 14:59 Last Admin: 01/16/19 20:22 Dose: 0.5 mg Documented by: Magnesium Hydroxide (Milk Of Magnesia) 30 ml PO DAILY PRN PRN Reason: Heartburn Stop: 02/09/19 08:29 Menthol (Nice) 1 be BUCCAL Q2H PRN PRN Reason: Sore Throat Stop: 02/09/19 08:29 Miscellaneous (Remove Nicoderm Patch) 1 ea N/A DAILY@2100 [facility] Stop: 02/09/19 20:59 Last Admin: 01/16/19 21:53 Dose: Not Given Documented by: Nicotine (Nicoderm Cq) 21 mg TD QAM [facility] Stop: 02/09/19 08:59 Last Admin: 01/16/19 09:16 Dose: Not Given Documented by: Nicotine Polacrilex (Nicorette 2mg) 1 piece MT UD PRN PRN Reason: Nicotine Withdrawal Stop: 02/09/19 08:34 Last Admin: 01/11/19 20:42 Dose: 1 piece Documented by: Sodium Chloride ([place] Nasal) 1 - 2 sprays NA PRN PRN PRN Reason: Nasal Dryness/Congestion Stop: 02/09/19 08:34 Post Discharge Appointments Primary Care Physician Name Of Family Doctor: Denies Therapist Name of Therapist: Denies Game 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
[2019-01-17] MEDS: HALOPERIDOL ORAL SOLN 2 MG/ML PO SCH (11:31)
[2019-01-17] MEDS: LORazepam 0.5 MG TAB PO PRN ×2 (11:34→19:36)
[2019-01-17] MEDS: ACETAMINOPHEN 325 MG TAB PO PRN ×2 (11:34→18:25)
[2019-01-17] MEDS: NICOTINE 21 MG/24 HR TDSY TD SCH (11:38)
[2019-01-18] MEDS: HALOPERIDOL ORAL SOLN 2 MG/ML PO SCH (09:14)
[2019-01-18] MEDS: NICOTINE 21 MG/24 HR TDSY TD SCH (09:17)
--- NOTE | 2019-01-18 11:57 | Psychiatric Progress Note ---
Date of Service January 18, 2019 Impression / Recommendations Impression Patient remains paranoid and delusional, isolating his room with little to no interaction, in bed for the majority of the day. He is taking liquid haloperidol, and will receive Haldol decanoate on 01/19/2018. His mother reports he has been leaving delusional and at times nonsensical messages for her, and she is very concerned about him and supports long-term treatment at the [facility]. He continues to demonstrate sociopathy and a complete lack of insight into the need for treatment for his psychotic disorder, and due to his risk factors, remains at risk of harm to both himself and others and in need of in patient treatment. He was referred to [facility] on 12/28/2018, and we have not yet received a response. Social work, his mother who is his rep payee, and the county have been involved in exploring possible diversion options, should he improved sufficiently to be appropriate for discharge to the community, but he himself has been poorly engaged in this process, although he states he would like to be diverted. (1) Schizophrenia: 12/14 -patient is a poor historian, but mother provides historical information. 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 For now we will collect psychosis not otherwise specified. -Patient is refusing to sign releases for previous outpatient providers in [place], and staff contacted them but they refused to provide any information without a signed release. -Medically necessary private room due to psychosis, erratic and disorganized behavior, history of violence, and aggressive behavior and threats to harm others here in the hospital. -Start haloperidol 5 mg twice daily, as patient has a previous good response to Haldol Decanoate and clozapine. Recommend medications over objection once he is on a 303 involuntary commitment and has been seen by a second physician, as he has severe psychotic symptoms which are preventing him from accurately interpreting reality, influencing his behavior, and placing him at risk of harm to both himself and others as he has been acting on his delusions, experiencing auditory and visual 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, paranoia, engaging in unsafe behaviors including driving when he does not have a license or the knowledge to do so, abusing substances, and has been threatening towards others. He demonstrates no insight into his condition, but available information indicates response to treatment with antipsychotic medications in the past. -Medically necessary private room due to psychosis, aggressive behavior, and threats to harm others. -We will need to check fasting lipid profile and glucose once he is cooperative. -Excused from groups from the time being until able to participate appropr iately. -Refusing to sign releases for parents, but mother is petitioner, so can inform her of the 303 hearing. 12/15 -The patient did accept a single dose of lorazepam this morning, and did seem to be somewhat more calm. He was mildly labile during his involuntary commitment hearing this morning, but managed to maintain control and was not aggressive during the hearing or upon learning that he had been retained by the shearing supervisor. Accordingly, we will continue to offer him lorazepam, since this medication in his case does not seem to be disinhibiting and, at least today, appeared to have helped him manage angry impulses during his involuntary commitment hearing. -The treatment team and I agree that, if possible, we would like to convince the patient to voluntarily take oral medications. Reports are that this morning he came close to taking oral haloperidol, but at the last minute declined. He is telling us that he will consistently refused medications, but our hope is that as we are able to gain his trust he will become more cooperative. We will continue to try to convince the patient to take oral haloperidol, but if this is unsuccessful we will seek two physician approval of medication over objection and give Haldol 5 mg IM BID. 12/16--tolerating Haldol, titrate to 10 mg BID. 12/18 - Continue haldol 10 mg bid - Continue discussion about LAMA - Encourage better sleep hygiene, staying awake in the day to promote sleep at night. 12/19 - Patient allowed labs to be drawn. FBS 93, FLP WNL with the exception of triglycerides of 186. Counseled to avoid fatty red meats, saturated fats. 12/20 -Again discussed the recommendations for long-acting injectable antipsychotic medication with the patient, which he initially declined because he said medications are poison. He has a meeting with his family this afternoon, and I will order the first loading dose of Haldol Decanoate 50 mg IM to be administered this afternoon, and if he is unwilling to take it, we will likely need to proceed with medications over objection tomorrow. We will try to encourage him to accept the intervention, as he reportedly did fairly well on this medication in the past. 12/21 -proceed with medications over objection: Haldol Decanoate 100 mg IM today, and Haldol 10 mg IM for refusal of oral Haldol. He will need 100-200 mg of Haldol Decanoate every 4 weeks based on his current oral dose, so will continue oral haloperidol for now until we can monitor response to the decanoate. 12/22 -the patient received Haldol Decanoate intramuscularly today, as a medication over objection. He tolerated the injection well, and today tells me that he "feels pretty good." -Today, the patient's associations seemed to be fairly tight on examination. He tends to be somewhat concrete in his thinking, but, as above, he did seem able to understand our rationale for continuing inpatient treatment at this point. 12/23 - tolerating halol dec w/o EPS or other complaints. will need to consider reduction of oral dose in approx 1 week. 12/24 - pt remains less acutely behaviorally disturbed since Haldol dec injection last however evidenced mild acting out when physically uncomfortable today - will add standing docusate 100mg po qhs and encourage oral hydration today for complaint of hard stool - meeting w/ [facility] services tomorrow to explore dispo options 12/25 - Increase in irritability - Planning meeting held with [facility]: possibility for CRR vs state hospital - Continue current meds and encourage prns 12/26 - 304 granted. Meeting with [facility], patient and parents held yesterday: parents confirmed he cannot return home. Treatment team and [facility] recommends state hospitalization, as patient not appropriate for CRR placement due to severity of symptoms and unwillingness for outpatient treatment and medications. 12/27 - Continue current medication regimen - Orders placed for necessary EKG, TB skin test to accompany [place] referral - Place on high elopement precautions last evening due to suspicious loitering at the entryway of the unit - Reviewed records from [facility] - previous diagnoses were schizoaffective disorder and substance abuse 12/28 - Continue current medication regimen - EKG and PPD completed yesterday - PPD will need read on 12/30 12/29 -Add clozapine 12.5 mg BID and increase as tolerated by 25 mg per day to a dose of 300 mg daily (in two divided dosages, or all at bedtime).' 12/30 -titrating clozapine to 12.5 am and 25mg hs for 12/30 with plan to increase to 25mg bid on 12/31 and likely further titration if tolerating -maintained Haldol decanoate and Haldol po unchanged for now, with consideration of weaning Haldol po dose if clozapine is effective ,, although pt appears to have history of both Haldol forms being rx'd while on past clozapine med trial. Pt has been observed by staff to be improving as obtaining medication of haldol (including the immediate IM doses) 12/31 close monitoring for checking, continue plan above for IM Haldol over objection if checking haldol scheduled doses. Maintain clozapine dosing plan for now with potential re-considering clozapine plan if compklaince issues are occuring. Consider further titration of haldol decanoate as appropaite. 01/01 - Patient refusing Clozaril. Will leave in place, but not force meds over objection for refusal - Increase Haldol to 10 mg AM and 15 mg HS, with meds over objection for refusal - Continue MNPR due to irritability and hx of violence 01/02 -continue oral haloperidol 10 mg every morning and 15 mg at bedtime (moved to later time to try to minimize sedation/spending excessive time in bed during the day), and Haldol decanoate, next injection due 01/19/2019. Continue Lorazepam as needed. -He continues to refuse clozapine. 01/03 - Continue current meds and plan - Continue MNPR in deference to history of violence toward others. 01/04 - Continue current meds and plan - Meeting scheduled with the [facility] to discuss disposition 01/05 - Change pills to liquid due to cheeking - Encourage patient to be out of bed and participating in his treatment - Planning meeting scheduled with the [facility] for next Saturday 01/06 -Patient agrees to a second Haldol Decanoate injection, 100 mg, with the hopes that we can taper him off oral haloperidol given his poor compliance. He has been on 25 mg p.o. daily, which is the equivalent of an initial dose of 500 mg decanoate (per UpToDate, dose of oral haloperidol > 10 mg and high risk of relapse, initiate dose at 20 times the daily oral dose). He got his initial Haldol Decanoate 100 mg on 12/22/2018. He will be due for his next injection on 01/19/2019, currently ordered for 200 mg, but may need to consider a higher dose given noncompliance with oral medication. Maintenance doses are typically 50- 200 mg. Will continue oral haloperidol liquid 10 mg every morning, but discontinue the 15 mg at bedtime dose. Oral haloperidol can be tapered over the period of the first 3 decanoate shots (60-90 days) depending on response. -Continue clozapine but decrease to 25 mg daily, as he has not been taking it, and continue to encourage him to try it, as it was reportedly beneficial in the past and stabilized him sufficiently to be discharged from the [facility]. -Continue as needed medications (Lorazepam, benztropine, haloperidol, and hydroxyzine). 01/07 -continue current medications and plan. 01/08 - Continue current meds and plan - Diversion meeting with the [facility] scheduled for tomorrow. 01/09 -continue private room given antisocial behavior/stealing. Meeting held with the [facility], who do not feel he is appropriate for CRR placement and support [facility] hospitalization. We have not yet received acceptance from [facility]. 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 01/10 -continue current plan. Coordinate with the [facility]. 01/11 - Continue current plan, awaiting acceptance and bed date from the [facility] - Although this is preferred plan, will need to arrange alternative options for appropriate discharge should bed date surpass ongoing criteria for inpatient admission 01/12 - Continue haloperidol 10mg qAM with scheduled injections of haloperidol decanoate - Given significant period of refusing scheduled clozapine - will cancel the medication and scheduled CBC blood draws - Awaiting acceptance to the [facility] and projected bed date - Continuing to work with [facility] resources should alternative arrangements be needed 5 - Continue current medication and treatment plan - On line of sight, MNPR, and high elopement precautions due to ongoing antisocial behaviors 01/16 - Continue current medication and treatment plan - Consider alternative housing options, boarding home or personal fdc to be explored 01/17 -continue current medications and plan. Patient (2) Noncompliance with medications: 12/14 -stopped his medications 6 months ago and has decompensated since. Would benefit from a long-acting injectable, and either long-term inpatient treatment at the [facility] or involuntary outpatient treatment.. 12/15 -The patient's psychosis and severely impaired insight seem to be making him and accessible to reason, regarding the essential importance of psychiatric medications. There is a past history of favorable response to haloperidol as well as to clozapine. It is agreed that the patient would in all likelihood benefit from a long-acting injectable antipsychotic medication, given his history of recurrent medication nonadherence. 12/16--currently taking PO for a few doses, is on extended involuntary commitment and clearly ongoing schizophrenia which will fail to improve for him to be able to provide self-care without ongoing treatments on inpatient unit and medications over objection. Without antipsychotic medication he is at significant risk of /serious disability and a danger to himself/others. Dr. Srinivasan could provide second opinion if he refuses PO med. 12/18- Patient refusing to consider LAMA at this time. Will continue to encourage 12/21 -patient continues to refuse Haldol Decanoate, and is now also refusing oral Haldol. We will proceed with medications over objection, as he has a diagnosis of primary thought disorder, has benefited from Haldol Decanoate in the past, he is actively delusional and is refusing medications due to psychotic thought processes, and is at risk of harm to both himself and others if he remains untreated. He has a significant history of violence tied to his delusions, and it will be important to get his symptoms adequately managed to decrease the risk of violence towards others here in the hospital. 12/22 -medication adherence is most certainly going issue with this patient. We are recommending the continued use of Depo forms of antipsychotic medications, but, in the past, the patient has simply refused to return to the office of the healthcare professional who is administering the sectionas was the case last year when, after doing reasonably well, he stopped going for treatment, and stopped excepting medications. For this reason, we are carefully looking for a supportive living setting for this patient, preferably one that has the resources necessary to assist the resistant, not adherent to patient. 12/24 - remains better compliant with PO meds 12/25 - Takes meds when he thinks he needs them, but voiced some question about taking anything regularly after discharge. 12/29 -the patient refused a dose of haloperidol yesterday and received haloperidol 10 mg intramuscularly over objection from disease no holes were required and the patient was cooperative with the injection closed with disease. Afterwards, he wondered out loud why he had refused the medication, knowing that he would get it "one way or the other." Because the patient seemed to have responded well, in terms of his disorganized thinking, to the intramuscular dose of haloperidol, there has been some discussion in the team regarding the question of "cheeking" his oral medications. However, the explanation may be that haloperidol 10 mg IM is more potent than orally. In any event, today the patient commits to continued adherence with his medications as he acknowledges that he does feel that they have been helpful to him. 12/31 -potential signs of non compliance 12/30 and 12/31, consider further ti tration of haldol deaconate as appropriate to help ensure as full of dose being obtained as possible. maintained plan of haldol IM injections for non compliance of haldol po doses 01/05- Switch Haldol to liquid due to cheeking. 01/06 -second dose of Haldol Decanoate as above. Will taper off of oral Haldol over the next 30-60 days, and ideally maintain him on injectable medication given his history of cheeking and noncompliance with oral medication. He continues to refuse clozapine, could consider the addition of an injectable atypical antipsychotic if Haldol Decanoate is insufficient to control symptoms. 01/09 -taking Haldol liquid, but refusing clozapine. Meeting help with the county to discuss potential diversion options, during which patient was delusional and demonstrated very poor insight. He continues to state he would not take medications after discharge. 01/12 - Given consistent refusal of scheduled clozapine since its initial administration, will discontinue scheduled dose as well as scheduled blood draws for CBCs (3) Substance abuse: 12/14 -patient is not forthcoming, but mother reports he has been abusing alcohol, cough syrup, diphenhydramine, and likely other substances. We will monitor for withdrawal symptoms, and as his psychosis improves, will provide psychoeducation about the risks of substance abuse and recommendations for abstinence. -Avoid controlled substances given high risk of abuse/misuse/negative outcomes. 12/15 -It is recognized that the patient has an extensive history of abusing chemical substances, and it is generally agreed that use of controlled substances does pose significant risk of abuse and other negative outcomes in the long-term. However, the patient's irritability and unwillingness to cooperate with essential medications, such as haloperidol, as well as his history of physical aggression towards others, may be mitigated by the temporary use of a benzodiazepine. Today, a single dose of lorazepam seems to have been effective in helping the patient maintain composure during an involuntary commitment hearing that did not go in his favor, and staff have noticed that he has been somewhat more cooperative today, possibly in response to the dose of lorazepam. Accordingly, staff will continue to offer the patient as needed lorazepam. 12/21 -admission drug screen was positive for benzodiazepines, with significantly elevated temazepam (> 2000) and elevated oxazepam levels. Although he denied taking benzodiazepines prior to admission, he clearly was accessing them somehow. 12/22 -the patient is able to give what may be referred to as "lip service" to the concept of abstinence from drugs of abuse, but he seems to have little or no insight into the risks associated with his abuse of mood altering chemical substances, particularly within the context of his psychiatric illness. Again, a whole will be to identify an aftercare placement that we will be able to monitor him more assiduously for access to abusable chemical substances, including prescription medications, alcohol, and other drugs of abuse. (4) Antisocial personality disorder: 12/14 -extensive, lifelong history provided by adoptive mother which reveals a pervasive pattern of disregard for and violation of the rights of others which started at age 8 or earlier, failure to conform to social norms with respect to lawful behaviors as indicated by repeatedly performing acts that are grounds for arrest, deceitfulness, impulsivity and failure to plan ahead, irritability and aggressiveness, reckless disregard for safety of self and others, consistent irresponsibility, and lack of remorse. 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 -Reviewed expectations with respect to behavior on the unit. 12/15 -The patient's history of antisocial behavior is noted, and antisocial personality will not be a focus of treatment during this hospitalization. However, the record indicates that the patient's antisocial behaviors, which are lifelong, are mitigated to some extent when he is being successfully treated for his psychotic disorder. Accordingly, the approach will be to address his antisocial behaviors by focusing on addressing his psychosis. 12/22 -The patient's long-standing history of antisocial behaviorbehavior which reportedly predates the onset of his symptoms of schizophreniahave not been a focus of treatment and are unlikely to change. Careful monitoring, diversion, containment to the degree possible, to containment of the most appropriate interventions for this problem. 01/11 - Pt made aware again of unit expectations. With evidence of patient stealing keys and causing damage to room items - he remains on a medically necessary private room. His room is to be searched twice daily to ensure any stolen, non-essential, or potentially hazardous items are not being accumulated to the point of causing potential harm. Continue to enforce clear boundaries. 01/15 - Line of sight, high elopement precautions, and MNPR due to attempts to elope and repeatedly stealing and hiding items on the unit. Stole another patient's liquid medication off the med cart in the nurses' station and took 80-100mg hydroxyzine, hid liquid citalopram in his room. Inventory Assets Strengths: Good physical health. Able to form alliances with certain peers. Concerned and supportive parents. Needs: Continued adherence with psychiatric medications, compliance with outpatient treatment, engagement in treatment, sobriety Risk Factors Assessment Male: Yes : Yes Do You Have Access To A Gun?: No Health Problems: Yes Mental Health Diagnoses: Yes Substance Use Disorders: Yes Previous Attempt: No Previous Psychiatric Hospitalization: Yes Hopelessness: No Smoker: Yes Protective Factors Assessment Church Beliefs: No : No Responsible for Young Children: No Employed: No Stable Relationships: No Supportive Family: Yes Good Rapport with Provider: No Absence of Any Risk Factors Above: No Interval History Identifying Information APRIL GONZALEZ is a 43-year-old M who lives in [place] with his parents, has a history of a psychotic disorder (specific diagnosis not yet known, but history of multiple previous hospitalizations including a 1 year state hospitalization in [place]), and was admitted on 12/14/18 03:41 on a 302 involuntary commitment for psychosis, treatment noncompliance, and erratic, unsafe behavior. He is on a 304 involuntary commitment as of 12/26/2018. Chief Complaint "Just tired". Review of Systems Sleep Information Total Hours of Sleep: 7.75 Sleep Comments: pt on q-15 minute checks. pt on "line of sight" during the night. Meal Information Percent Meal Consumed - Breakfast: 0 Percent Meal Consumed - Lunch: 0 Percent Meal Consumed - Dinner: 100 Nutrition Comment: per meal record Subjective Subjective Patient was seen & assessed and interval progress reviewed with nursing and social work. Staff report the patient has been isolating in his room, is refusing all groups, and attempted to call his mother, but she did not answer his calls. On my assessment he was seen in his room, where he refuses to get up out of bed or uncover his face. He says mood is "fine," and when asked why he is not getting out of bed at all, says "you guys haven't been very forthcoming, so I don't know what to do." He is unable/unwilling to engage in discussion about this, stating he just wants to sleep. He was encouraged to come out of his room and participate in treatment, discussed that if he is interested in pursuing diversion from the [facility], that he would need to demonstrate an ability to be around other people and to participate in programming. Physical Exam Psychiatric Orientation: + uncooperative Apperance: + disheveled No eye contact Minimal speech Affect: + depressed affect; + mood not congruent with affect "Good" Thought Process: + looseness of associations Thought Content: + paranoid and + delusions Cognition: + recent memory not intact Insight: + severely impaired insight Judgement: + severely impaired judgement Vital Signs (Past 24 Hours) Last Vital Signs Temp 36.3 C L 01/15/19 06:45 Pulse 76 01/15/19 06:46 Resp 16 01/18/19 06:00 BP 117/77 01/15/19 06:46 Pulse Ox 97 12/14/18 03:38 Results & Data Current Inpatient Medications Current Inpatient Medications: Current Inpatient Medications Acetaminophen (Tylenol) 650 mg PO Q4H PRN PRN Reason: Headache or Minor Fever Stop: 02/09/19 08:29 Last Admin: 01/17/19 18:25 Dose: 650 mg Documented by: Al Hydrox/Mg Hydrox/Simethicone (Maalox) 30 ml PO Q4H PRN PRN Reason: GI Upset Stop: 02/09/19 08:29 Benztropine Mesylate (Cogentin) 1 mg PO BID PRN PRN Reason: akathisia Stop: 02/09/19 08:29 Last Admin: 01/16/19 19:05 Dose: 1 mg Documented by: Bismuth Subsalicylate (Kaopectate) 15 ml PO PRN PRN PRN Reason: Loose Stool Stop: 02/09/19 08:29 Docusate Sodium (Colace) 100 mg PO HS PRN PRN Reason: constipation Stop: 02/09/19 08:29 Haloperidol Decanoate (Haldol Decanoate) 200 mg IM Q28D@0900 [facility] Stop: 02/18/19 08:59 Haloperidol Lactate (Haldol Lactate) 10 mg PO QAM [facility] Stop: 02/05/19 08:59 Last Admin: 01/18/19 09:14 Dose: 10 mg Documented by: Haloperidol Lactate (Haldol Lactate) 10 mg PO Q4H PRN PRN Reason: Psychosis or agitation Stop: 02/09/19 08:29 Haloperidol Lactate (Haldol) 10 mg IM 0900,1600 PRN PRN Reason: refusal of PO Stop: 02/09/19 08:29 Haloperidol Lactate (Haldol) 10 mg IM Q4 PRN PRN Reason: psychosis or agitation Stop: 02/09/19 08:29 Lorazepam (Ativan) 0.5 mg PO Q8H PRN PRN Reason: Agitation Stop: 02/07/19 14:59 Last Admin: 01/17/19 19:36 Dose: 0.5 mg Documented by: Magnesium Hydroxide (Milk Of Magnesia) 30 ml PO DAILY PRN PRN Reason: Heartburn Stop: 02/09/19 08:29 Menthol (Nice) 1 be BUCCAL Q2H PRN PRN Reason: Sore Throat Stop: 02/09/19 08:29 Miscellaneous (Remove Nicoderm Patch) 1 ea N/A DAILY@2100 [facility] Stop: 02/09/19 20:59 Last Admin: 01/17/19 21:42 Dose: Not Given Documented by: Nicotine (Nicoderm Cq) 21 mg TD QAM [facility] Stop: 02/09/19 08:59 Last Admin: 01/18/19 09:17 Dose: Not Given Documented by: Nicotine Polacrilex (Nicorette 2mg) 1 piece MT UD PRN PRN Reason: Nicotine Withdrawal Stop: 02/09/19 08:34 Last Admin: 01/11/19 20:42 Dose: 1 piece Documented by: Sodium Chloride ([place] Nasal) 1 - 2 sprays NA PRN PRN PRN Reason: Nasal Dryness/Congestion Stop: 02/09/19 08:34 Post Discharge Appointments Primary Care Physician Name Of Family Doctor: Denies Therapist Name of Therapist: Denies Bilingual Office Assistant Name of Bilingual Office Assistant: [employer] Phone Number for Bilingual Office Assistant: [phone] Case Management Appointment Comment: [id number], [address], [place], [place] CPT Code CPT Code 51710 (1) Schizophrenia Schizophrenia type: paranoid schizophrenia Qualified Code(s): F20.0 - Paranoid schizophrenia
[2019-01-18] MEDS: ACETAMINOPHEN 325 MG TAB PO PRN ×2 (14:32→20:32)
[2019-01-18] MEDS: LORazepam 0.5 MG TAB PO PRN ×2 (14:32→23:20)
[2019-01-19] MEDS ORDERED: HALOPERIDOL DECANOATE INJ 50 MG/ML VIAL IM SCH ×2 (09:00)
--- NOTE | 2019-01-19 09:43 | Psychiatric Progress Note ---
Date of Service January 19, 2019 Impression / Recommendations Impression Patient remains paranoid and delusional, isolating his room with little to no interaction, in bed for the majority of the day. He is taking liquid haloperidol, and will receive Haldol decanoate on 01/19/2018. Reports yesterday from mother indicate that he has been leaving nonsensical messages for his mother. Referral to [facility] was made several weeks ago, and no response as to anticipated outcome. Exploring diversion plans should they be necessary. Build Manager from [facility] boarding home to meet with patient this afternoon. Pt has remained poorly engaged in this process, showing limited motivation to assist with discharge planning. (1) Schizophrenia: 12/14 -patient is a poor historian, but mother provides historical information. 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 For now we will collect psychosis not otherwise specified. -Patient is refusing to sign releases for previous outpatient providers in [place], and staff contacted them but they refused to provide any information without a signed release. -Medically necessary private room due to psychosis, erratic and disorganized behavior, history of violence, and aggressive behavior and threats to harm others here in the hospital. -Start haloperidol 5 mg twice daily, as patient has a previous good response to Haldol Decanoate and clozapine. Recommend medications over objection once he is on a 303 involuntary commitment and has been seen by a second physician, as he has severe psychotic symptoms which are preventing him from accurately interpreting reality, influencing his behavior, and placing him at risk of harm to both himself and others as he has been acting on his delusions, experiencing auditory and visual 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, paranoia, engaging in unsafe behaviors including driving when he does not have a license or the knowledge to do so, abusing substances, and has been threatening towards others. He demonstrates no insight into his condition, but available information indicates response to treatment with antipsychotic medications in the past. -Medically necessary private room due to psychosis, aggressive behavior, and threats to harm others. -We will need to check fasting lipid profile and glucose once he is cooperative. -Excused from groups from the time being until able to participate appropriately. -Refusing to sign releases for parents, but mother is petitioner, so can inform her of the 303 hearing. 12/15 -The patient did accept a single dose of lorazepam this morning, and did seem to be somewhat more calm. He was mildly labile during his involuntary commitment hearing this morning, but managed to maintain control and was not aggressive during the hearing or upon learning that he had been retained by the job placement officer. Accordingly, we will continue to offer him lorazepam, since this medication in his case does not seem to be disinhibiting and, at least today, ap peared to have helped him manage angry impulses during his involuntary commitment hearing. -The treatment team and I agree that, if possible, we would like to convince the patient to voluntarily take oral medications. Reports are that this morning he came close to taking oral haloperidol, but at the last minute declined. He is telling us that he will consistently refused medications, but our hope is that as we are able to gain his trust he will become more cooperative. We will continue to try to convince the patient to take oral haloperidol, but if this is unsuccessful we will seek two physician approval of medication over objection and give Haldol 5 mg IM BID. 12/16--tolerating Haldol, titrate to 10 mg BID. 12/18 - Continue haldol 10 mg bid - Continue discussion about LAMA - Encourage better sleep hygiene, staying awake in the day to promote sleep at night. 12/19 - Patient allowed labs to be drawn. FBS 93, FLP WNL with the exception of triglycerides of 186. Counseled to avoid fatty red meats, saturated fats. 12/20 -Again discussed the recommendations for long-acting injectable antipsychotic medication with the patient, which he initially declined because he said medications are poison. He has a meeting with his family this afternoon, and I will order the first loading dose of Haldol Decanoate 50 mg IM to be administered this afternoon, and if he is unwilling to take it, we will likely need to proceed with medications over objection tomorrow. We will try to encourage him to accept the intervention, as he reportedly did fairly well on this medication in the past. 12/21 -proceed with medications over objection: Haldol Decanoate 100 mg IM today, and Haldol 10 mg IM for refusal of oral Haldol. He will need 100-200 mg of Haldol Decanoate every 4 weeks based on his current oral dose, so will continue oral haloperidol for now until we can monitor response to the decanoate. 12/22 -the patient received Haldol Decanoate intramuscularly today, as a medication over objection. He tolerated the injection well, and today tells me that he "feels pretty good." -Today, the patient's associations seemed to be fairly tight on examination. He tends to be somewhat concrete in his thinking, but, as above, he did seem able to understand our rationale for continuing inpatient treatment at this point. 12/23 - tolerating halol dec w/o EPS or other complaints. will need to consider reduction of oral dose in approx 1 week. 12/24 - pt remains less acutely behaviorally disturbed since Haldol dec injection last however evidenced mild acting out when physically uncomfortable today - will add standing docusate 100mg po qhs and encourage oral hydration today for complaint of hard stool - meeting / [facility] services tomorrow to explore dispo options 12/25 - Increase in irritability - Planning meeting held with [facility]: possibility for CRR vs state hospital - Continue current meds and encourage prns 12/26 - 304 granted. Meeting with [facility], patient and parents held yesterday: parents confirmed he cannot return home. Treatment team and [facility] recommends state hospitalization, as patient not appropriate for CRR placement due to severity of symptoms and unwillingness for outpatient treatment and medications. 12/27 - Continue current medication regimen - Orders placed for necessary EKG, TB skin test to accompany [facility] referral - Place on high elopement precautions last evening due to suspicious loitering at the entryway of the unit - Reviewed records from [facility] - previous diagnoses were schizoaffective disorder and substance abuse 12/28 - Continue current medication regimen - EKG and PPD completed yesterday - PPD will need read on 12/30 12/29 -Add clozapine 12.5 mg BID and increase as tolerated by 25 mg per day to a dose of 300 mg daily (in two divided dosages, or all at bedtime).' 12/30 -titrating clozapine to 12.5 am and 25mg hs for 12/30 with plan to increase to 25mg bid on 12/31 and likely further titration if tolerating -maintained Haldol decanoate and Haldol po unchanged for now, with consideration of weaning Haldol po dose if clozapine is effective ,, although pt appears to have history of both Haldol forms being rx'd while on past clozapine med trial. Pt has been observed by staff to be improving as obtaining medication of haldol (including the immediate IM doses) 12/31 close monitoring for checking, continue plan above for IM Haldol over objection if checking haldol scheduled doses. Maintain clozapine dosing plan for now with potential re-considering clozapine plan if compklaince issues are occuring. Consider further titration of haldol decanoate as appropaite. 01/01 - Patient refusing Clozaril. Will leave in place, but not force meds over objection for refusal - Increase Haldol to 10 mg AM and 15 mg HS, with meds over objection for refusal - Continue MNPR due to irritability and hx of violence 01/02 -continue oral haloperidol 10 mg every morning and 15 mg at bedtime (moved to later time to try to minimize sedation/spending excessive time in bed during the day), and Haldol decanoate, next injection due 01/19/2019. Continue Lorazepam as needed. -He continues to refuse clozapine. 01/03 - Continue current meds and plan - Continue MNPR in deference to history of violence toward others. 01/04 - Continue current meds and plan - Meeting scheduled with the [facility] to discuss disposition 01/05 - Change pills to liquid due to cheeking - Encourage patient to be out of bed and participating in his treatment - Planning meeting scheduled with the [facility] for next Saturday 01/06 -Patient agrees to a second Haldol Decanoate injection, 100 mg, with the hopes that we can taper him off oral haloperidol given his poor compliance. He has been on 25 mg p.o. daily, which is the equivalent of an initial dose of 500 mg decanoate (per UpToDate, dose of oral haloperidol > 10 mg and high risk of relapse, initiate dose at 20 times the daily oral dose). He got his initial Haldol Decanoate 100 mg on 12/22/2018. He will be due for his next injection on 01/19/2019, currently ordered for 200 mg, but may need to consider a higher dose given noncompliance with oral medication. Maintenance doses are typically 50- 200 mg. Will continue oral haloperidol liquid 10 mg every morning, but discontinue the 15 mg at bedtime dose. Oral haloperidol can be tapered over the period of the first 3 decanoate shots (60-90 days) depending on response. -Continue clozapine but decrease to 25 mg daily, as he has not been taking it, and continue to encourage him to try it, as it was reportedly beneficial in the past and stabilized him sufficiently to be discharged from the [facility]. -Continue as needed medications (Lorazepam, benztropine, haloperidol, and hydroxyzine). 01/07 -continue current medications and plan. 01/08 - Continue current meds and plan - Diversion meeting with the [facility] scheduled for tomorrow. 01/09 -continue private room given antisocial behavior/stealing. Meeting held with the [facility], who do not feel he is appropriate for CRR placement and support state hospitalization. We have not yet received acceptance from [facility]. 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 01/10 -continue current plan. Coordinate with the [facility]. 01/11 - Continue current plan, awaiting acceptance and bed date from the [facility] - Although this is preferred plan, will need to arrange alternative options for appropriate discharge should bed date surpass ongoing criteria for inpatient admission 5 - Continue haloperidol 10mg qAM with scheduled injections of haloperidol decanoate - Given significant period of refusing scheduled clozapine - will cancel the medication and scheduled CBC blood draws - Awaiting acceptance to the [facility] and projected bed date - Continuing to work with [facility] resources should alternative arrangements be needed 01/15 - Continue current medication and treatment plan - On line of sight, MNPR, and high elopement precautions due to ongoing antisocial behaviors 01/16 - Continue current medication and treatment plan - Consider alternative housing options, boarding home or personal penitentiary to be explored 01/17 -continue current medications and plan. 01/19 - Continue current medication regimen - Meeting with group sales representative from [place] [facility] today to explore alternative discharge plans (2) Noncompliance with medications: 12/14 -stopped his medications 6 months ago and has decompensated since. Would benefit from a long-acting injectable, and either long-term inpatient treatment at the [facility] or involuntary outpatient treatment.. 12/15 -The patient's psychosis and severely impaired insight seem to be making him and accessible to reason, regarding the essential importance of psychiatric medications. There is a past history of favorable response to haloperidol as well as to clozapine. It is agreed that the patient would in all likelihood benefit from a long-acting injectable antipsychotic medication, given his history of recurrent medication nonadherence. 12/16--currently taking PO for a few doses, is on extended involuntary commitment and clearly ongoing schizophrenia which will fail to improve for him to be able to provide self-care without ongoing treatments on inpatient unit and medications over objection. Without antipsychotic medication he is at significant risk of /serious disability and a danger to himself/others. Dr. Srinivasan could provide second opinion if he refuses PO med. 12/18- Patient refusing to consider LAMA at this time. Will continue to encourage 12/21 -patient continues to refuse Haldol Decanoate, and is now also refusing oral Haldol. We will proceed with medications over objection, as he has a diagnosis of primary thought disorder, has benefited from Haldol Decanoate in the past, he is actively delusional and is refusing medications due to psychotic thought processes, and is at risk of harm to both himself and others if he remains untreated. He has a significant history of violence tied to his delusions, and it will be important to get his symptoms adequately managed to decrease the risk of violence towards others here in the hospital. 12/22 -medication adherence is most certainly going issue with this patient. We are recommending the continued use of Depo forms of antipsychotic medications, but, in the past, the patient has simply refused to return to the office of the healthcare professional who is administering the sectionas was the case last year when, after doing reasonably well, he stopped going for treatment, and stopped excepting medications. For this reason, we are carefully looking for a supportive living setting for this patient, preferably one that has the resources necessary to assist the resistant, not adherent to patient. 12/24 - remains better compliant with PO meds 12/25 - Takes meds when he thinks he needs them, but voiced some question about t aking anything regularly after discharge. 12/29 -the patient refused a dose of haloperidol yesterday and received haloperidol 10 mg intramuscularly over objection from disease no holes were required and the patient was cooperative with the injection closed with disease. Afterwards, he wondered out loud why he had refused the medication, knowing that he would get it "one way or the other." Because the patient seemed to have responded well, in terms of his disorganized thinking, to the intramuscular dose of haloperidol, there has been some discussion in the team regarding the question of "cheeking" his oral medications. However, the explanation may be that haloperidol 10 mg IM is more potent than orally. In any event, today the patient commits to continued adherence with his medications as he acknowledges that he does feel that they have been helpful to him. 12/31 -potential signs of non compliance 12/30 and 12/31, consider further titration of haldol deaconate as appropriate to help ensure as full of dose being obtained as possible. maintained plan of haldol IM injections for non compliance of haldol po doses 01/05- Switch Haldol to liquid due to cheeking. 01/06 -second dose of Haldol Decanoate as above. Will taper off of oral Haldol over the next 30-60 days, and ideally maintain him on injectable medication given his history of cheeking and noncompliance with oral medication. He continues to refuse clozapine, could consider the addition of an injectable atypical antipsychotic if Haldol Decanoate is insufficient to control symptoms. 01/09 -taking Haldol liquid, but refusing clozapine. Meeting help with the county to discuss potential diversion options, during which patient was delusional and demonstrated very poor insight. He continues to state he would not take medications after discharge. 01/12 - Given consistent refusal of scheduled clozapine since its initial administration, will discontinue scheduled dose as well as scheduled blood draws for CBCs (3) Substance abuse: 12/14 -patient is not forthcoming, but mother reports he has been abusing alcohol, cough syrup, diphenhydramine, and likely other substances. We will monitor for withdrawal symptoms, and as his psychosis improves, will provide psychoeducation about the risks of substance abuse and recommendations for abstinence. -Avoid controlled substances given high risk of abuse/misuse/negative outcomes. 12/15 -It is recognized that the patient has an extensive history of abusing chemical substances, and it is generally agreed that use of controlled merino bstances does pose significant risk of abuse and other negative outcomes in the long-term. However, the patient's irritability and unwillingness to cooperate with essential medications, such as haloperidol, as well as his history of physical aggression towards others, may be mitigated by the temporary use of a benzodiazepine. Today, a single dose of lorazepam seems to have been effective in helping the patient maintain composure during an involuntary commitment hearing that did not go in his favor, and staff have noticed that he has been somewhat more cooperative today, possibly in response to the dose of lorazepam. Accordingly, staff will continue to offer the patient as needed lorazepam. 12/21 -admission drug screen was positive for benzodiazepines, with significantly elevated temazepam (> 2000) and elevated oxazepam levels. Although he denied taking benzodiazepines prior to admission, he clearly was accessing them somehow. 12/22 -the patient is able to give what may be referred to as "lip service" to the concept of abstinence from drugs of abuse, but he seems to have little or no insight into the risks associated with his abuse of mood altering chemical substances, particularly within the context of his psychiatric illness. Again, a whole will be to identify an aftercare placement that we will be able to monitor him more assiduously for access to abusable chemical substances, including prescription medications, alcohol, and other drugs of abuse. (4) Antisocial personality disorder: 12/14 -extensive, lifelong history provided by adoptive mother which reveals a pervasive pattern of disregard for and violation of the rights of others which started at age 8 or earlier, failure to conform to social norms with respect to lawful behaviors as indicated by repeatedly performing acts that are grounds for arrest, deceitfulness, impulsivity and failure to plan ahead, irritability and aggressiveness, reckless disregard for safety of self and others, consistent irresponsibility, and lack of remorse. 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 -Reviewed expectations with respect to behavior on the unit. 12/15 -The patient's history of antisocial behavior is noted, and antisocial personality will not be a focus of treatment during this hospitalization. However, the record indicates that the patient's antisocial behaviors, which are lifelong, are mitigated to some extent when he is being successfully treated for his psychotic disorder. Accordingly, the approach will be to address his antisocial behaviors by focusing on addressing his psychosis. 12/22 -The patient's long-standing history of antisocial behaviorbehavior which reportedly predates the onset of his symptoms of schizophreniahave not been a focus of treatment and are unlikely to change. Careful monitoring, diversion, containment to the degree possible, to containment of the most appropriate interventions for this problem. 5/2 - Pt made aware again of unit expectations. With evidence of patient stealing keys and causing damage to room items - he remains on a medically necessary private room. His room is to be searched twice daily to ensure any stolen, non-essential, or potentially hazardous items are not being accumulated to the point of causing potential harm. Continue to enforce clear boundaries. 5/6 - Line of sight, high elopement precautions, and MNPR due to attempts to elope and repeatedly stealing and hiding items on the unit. Stole another patient's liquid medication off the med cart in the nurses' station and took 80- 100mg hydroxyzine, hid liquid citalopram in his room. Inventory Assets Strengths: Good physical health. Able to form alliances with certain peers. Concerned and supportive parents. Needs: Continued adherence with psychiatric medications, compliance with outpatient treatment, engagement in treatment, sobriety Risk Factors Assessment Male: Yes : Yes Do You Have Access To A Gun?: No Health Problems: Yes Mental Health Diagnoses: Yes Substance Use Disorders: Yes Previous Attempt: No Previous Psychiatric Hospitalization: Yes Hopelessness: No Smoker: Yes Protective Factors Assessment Jehovah'S Witness Beliefs: No : No Responsible for Young Children: No Employed: No Stable Relationships: No Supportive Family: Yes Good Rapport with Provider: No Absence of Any Risk Factors Above: No Interval History Identifying Information APRIL GONZALEZ is a 43-year-old M who lives in [place] with his parents, has a history of a psychotic disorder (specific diagnosis not yet known, but history of multiple previous hospitalizations including a 1 year state hospitalization in [place]), and was admitted on 12/14/18 03:41 on a 302 involuntary commitment for psychosis, treatment noncompliance, and erratic, unsafe behavior. He is on a 304 involuntary commitment as of 12/26/2018. Chief Complaint "Fine." Review of Systems Notes Constitutional: reports fatigue Cardiovascular: denied Respiratory: denied Gastrointestinal: denied Neurological: denied Psychiatric: denies symptoms other than stated above Total of at least 10 systems reviewed, pertinent positives as above and in HPI. Sleep Information Total Hours of Sleep: 6.75 Sleep Comments: pt on q-15 minute checks. pt on "line of sight" during the night. Meal Information Percent Meal Consumed - Breakfast: 0 Percent Meal Consumed - Lunch: 100 Percent Meal Consumed - Dinner: 100 Nutrition Comment: per meal record Subjective Subjective Patient was seen & assessed and interval progress reviewed with Treatment Team. Staff reports the patient has been a bit more interactive on evening shifts. He is to have a meeting with a group sales representative from [facility] this afternoon to determine if the boarding home would be a potential discharge facility. Pt was seen today to assess progress since admission. Pt states he is "fine". He states he has not eaten breakfast this morning. He is aware of the meeting this afternoon, but plans to remain in bed until then. He states he does watch tv in the evenings. Pt denies other needs, questions, or concerns today. Physical Exam Psychiatric Orientation: alert, oriented x 3 and oriented to person; + uncooperative Apperance: appropriately dressed and + disheveled; + inappropriately groomed and + did not appear stated age Eye Contact: good eye contact, + fair eye contact and + poor eye contact (no contact at all with provider) Motor Behavior: no abnormal motor movements (observed while laying in bed) Speech: normal rate/rhythm/volume of speech (brief responses to questions); no pressured speech Affect: + flat affect, + irritable affect and + constricted affect Mood: + irritable mood; no depressed mood and no anxious mood "fine" Thought Process: goal directed thought process (for discharge) and + concrete thought process; + thought process not clear or coherent Thought Content: + preoccupation (with going home), + cognitive distortions and reality based without delusions (none verbalized, limited willingness to participate in further discussion) Suicidal Thoughts: denies suicidal thoughts Homicidal Thoughts: denies homicidal thoughts Hallucinations: 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) and no visual 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 Cognition: remote memory grossly intact, attention grossly intact and language grossly intact; + recent memory not intact Estimated Intelligence: consistent with education level Insight: + poor insight Judgement: + poor judgement Vital Signs (Past 24 Hours) Last Vital Signs Temp 36.4 C L 01/19/19 06:00 Pulse 96 H 01/19/19 06:00 Resp 18 01/19/19 06:00 BP 105/63 01/19/19 06:00 Pulse Ox 97 12/14/18 03:38 Results & Data Current Inpatient Medications Current Inpatient Medications: Current Inpatient Medications Acetaminophen (Tylenol) 650 mg PO Q4H PRN PRN Reason: Headache or Minor Fever Stop: 02/09/19 08:29 Last Admin: 01/18/19 20:32 Dose: 650 mg Documented by: Al Hydrox/Mg Hydrox/Simethicone (Maalox) 30 ml PO Q4H PRN PRN Reason: GI Upset Stop: 02/09/19 08:29 Benztropine Mesylate (Cogentin) 1 mg PO BID PRN PRN Reason: akathisia Stop: 02/09/19 08:29 Last Admin: 01/16/19 19:05 Dose: 1 mg Documented by: Bismuth Subsalicylate (Kaopectate) 15 ml PO PRN PRN PRN Reason: Loose Stool Stop: 02/09/19 08:29 Docusate Sodium (Colace) 100 mg PO HS PRN PRN Reason: constipation Stop: 02/09/19 08:29 Haloperidol Decanoate (Haldol Decanoate) 200 mg IM Q28D@0900 [facility] [place] Stop: 02/18/19 08:59 Haloperidol Lactate (Haldol Lactate) 10 mg PO QAM [facility] [place] Stop: 02/05/19 08:59 Last Admin: 01/18/19 09:14 Dose: 10 mg Documented by: Haloperidol Lactate (Haldol Lactate) 10 mg PO Q4H PRN PRN Reason: Psychosis or agitation Stop: 02/09/19 08:29 Haloperidol Lactate (Haldol) 10 mg IM 0900,1600 PRN PRN Reason: refusal of PO Stop: 02/09/19 08:29 Haloperidol Lactate (Haldol) 10 mg IM Q4 PRN PRN Reason: psychosis or agitation Stop: 02/09/19 08:29 Lorazepam (Ativan) 0.5 mg PO Q8H PRN PRN Reason: Agitation Stop: 02/07/19 14:59 Last Admin: 01/18/19 23:20 Dose: 0.5 mg Documented by: Magnesium Hydroxide (Milk Of Magnesia) 30 ml PO DAILY PRN PRN Reason: Heartburn Stop: 02/09/19 08:29 Menthol (Nice) 1 be BUCCAL Q2H PRN PRN Reason: Sore Throat Stop: 02/09/19 08:29 Miscellaneous (Remove Nicoderm Patch) 1 ea N/A DAILY@2100 [facility] [place] Stop: 02/09/19 20:59 Last Admin: 01/18/19 20:31 Dose: Not Given Documented by: Nicotine (Nicoderm Cq) 21 mg TD QAM KELLY Stop: 02/09/19 08:59 Last Admin: 01/18/19 09:17 Dose: Not Given Documented by: Nicotine Polacrilex (Nicorette 2mg) 1 piece MT UD PRN PRN Reason: Nicotine Withdrawal Stop: 02/09/19 08:34 Last Admin: 01/11/19 20:42 Dose: 1 piece Documented by: Sodium Chloride ([place] Nasal) 1 - 2 sprays NA PRN PRN PRN Reason: Nasal Dryness/Congestion Stop: 02/09/19 08:34 Post Discharge Appointments Primary Care Physician Name Of Family Doctor: Denies Therapist Name of Therapist: Denies Door Trimmer Name of Door Trimmer: [employer] [facility] [employer] Phone Number for Door Trimmer: [phone] Case Management Appointment Comment: [address], [address], [place], [place] CPT Code CPT Code 73560 (1) Schizophrenia Schizophrenia type: paranoid schizophrenia Qualified Code(s): F20.0 - Paranoid schizophrenia
[2019-01-19] MEDS: HALOPERIDOL ORAL SOLN 2 MG/ML PO SCH (12:09)
[2019-01-19] MEDS: NICOTINE 21 MG/24 HR TDSY TD SCH (12:29)
[2019-01-19] MEDS: NICOTINE POLACRILEX 2 MG GUM MT PRN (15:51)
[2019-01-19] MEDS: ACETAMINOPHEN 325 MG TAB PO PRN (18:08)
[2019-01-19] MEDS: LORazepam 0.5 MG TAB PO PRN (19:09)
[2019-01-20] MEDS: NICOTINE 21 MG/24 HR TDSY TD SCH (09:54)
[2019-01-20] MEDS: LORazepam 0.5 MG TAB PO PRN ×2 (10:47→19:22)
[2019-01-20] MEDS: ACETAMINOPHEN 325 MG TAB PO PRN ×2 (10:47→19:22)
--- NOTE | 2019-01-20 14:35 | Psychiatric Progress Note ---
Date of Service January 20, 2019 Impression / Recommendations Impression Patient remains paranoid and delusional, isolating his room with little to no interaction, in bed for the majority of the day. He is taking liquid haloperidol, and will receive Haldol decanoate on 01/19/2018. Reports yesterday from mother indicate that he has been leaving nonsensical messages for his mother. Referral to [facility] was made several weeks ago, and no response as to anticipated outcome. Exploring diversion plans and Timber Appraiser from [facility] meet with patient 01/19 with aim to hear back about this option on 01/22. Pt has remained poorly engaged, showing limited motivation to assist with discharge planning. liquid haldol po doses stopped 01/19 and haldol decanoate to now be 300mg IM dose every 4 weeks with next dose due 02/16/19 (1) Schizophrenia: 12/14 -patient is a poor historian, but mother provides historical information. 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 For now we will collect psychosis not otherwise specified. -Patient is refusing to sign releases for previous outpatient providers in [place], and staff contacted them but they refused to provide any information without a signed release. -Medically necessary private room due to psychosis, erratic and disorganized behavior, history of violence, and aggressive behavior and threats to harm others here in the hospital. -Start haloperidol 5 mg twice daily, as patient has a previous good response to Haldol Decanoate and clozapine. Recommend medications over objection once he is on a 303 involuntary commitment and has been seen by a second physician, as he has severe psychotic symptoms which are preventing him from accurately interpreting reality, influencing his behavior, and placing him at risk of harm to both himself and others as he has been acting on his delusions, experiencing auditory and visual 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, paranoia, engaging in unsafe behaviors including driving when he does not have a license or the knowledge to do so, abusing substances, and has been threatening towards others. He demonstrates no insight into his condition, but available information indicates response to treatment with antipsychotic medications in the past. -Medically necessary private room due to psychosis, aggressive behavior, and threats to harm others. -We will need to check fasting lipid profile and glucose once he is cooperative. -Excused from groups from the time being until able to participate appropriately. -Refusing to sign releases for parents, but mother is petitioner, so can inform her of the 303 hearing. 12/15 -The patient did accept a single dose of lorazepam this morning, and did seem to be somewhat more calm. He was mildly labile during his involuntary commitment hearing this morning, but managed to maintain control and was not aggressive during the hearing or upon learning that he had been retained by the detention officer. Accordingly, we will continue to offer him lorazepam, since this medication in his case does not seem to be disinhibiting and, at least today, appeared to have helped him manage angry impulses during his involuntary commitment hearing. -The treatment team and I agree that, if possible, we would like to convince the patient to voluntarily take oral medications. Reports are that this morning he came close to taking oral haloperidol, but at the last minute declined. He is telling us that he will consistently refused medications, but our hope is that as we are able to gain his trust he will become more cooperative. We will continue to try to convince the patient to take oral haloperidol, but if this is unsuccessful we will seek two physician approval of medication over objection and give Haldol 5 mg IM BID. 12/16--tolerating Haldol, titrate to 10 mg BID. 12/18 - Continue haldol 10 mg bid - Continue discussion about LAMA - Encourage better sleep hygiene, staying awake in the day to promote sleep at night. 12/19 - Patient allowed labs to be drawn. FBS 93, FLP WNL with the exception of triglycerides of 186. Counseled to avoid fatty red meats, saturated fats. 12/20 -Again discussed the recommendations for long-acting injectable antipsychotic medication with the patient, which he initially declined because he said medications are poison. He has a meeting with his family this afternoon, and I will order the first loading dose of Haldol Decanoate 50 mg IM to be administered this afternoon, and if he is unwilling to take it, we will likely need to proceed with medications over objection tomorrow. We will try to encourage him to accept the intervention, as he reportedly did fairly well on this medication in the past. 12/21 -proceed with medications over objection: Haldol Decanoate 100 mg IM today, and Haldol 10 mg IM for refusal of oral Haldol. He will need 100-200 mg of Haldol Decanoate every 4 weeks based on his current oral dose, so will continue oral haloperidol for now until we can monitor response to the decanoate. 12/22 -the patient received Haldol Decanoate intramuscularly today, as a medication over objection. He tolerated the injection well, and today tells me that he "feels pretty good." -Today, the patient's associations seemed to be fairly tight on examination. He tends to be somewhat concrete in his thinking, but, as above, he did seem able to understand our rationale for continuing inpatient treatment at this point. 12/23 - tolerating halol dec w/o EPS or other complaints. will need to consider reduction of oral dose in approx 1 week. 12/24 - pt remains less acutely behaviorally disturbed since Haldol dec injection last however evidenced mild acting out when physically uncomfortable today - will add standing docusate 100mg po qhs and encourage oral hydration today for complaint of hard stool - meeting w/ [facility] services tomorrow to explore dispo options 12/25 - Increase in irritability - Planning meeting held with [facility]: possibility for CRR vs state hospital - Continue current meds and encourage prns 12/26 - 304 granted. Meeting with [facility], patient and parents held yesterday: parents confirmed he cannot return home. Treatment team and [facility] recommends state hospitalization, as patient not appropriate for CRR placement due to severity of symptoms and unwillingness for outpatient treatment and medications. 12/27 - Continue current medication regimen - Orders placed for necessary EKG, TB skin test to accompany [facility] referral - Place on high elopement precautions last evening due to suspicious loitering at the entryway of the unit - Reviewed records from [facility] - previous diagnoses were schizoaffective disorder and substance abuse 12/28 - Continue current medication regimen - EKG and PPD completed yesterday - PPD will need read on 12/30 12/29 -Add clozapine 12.5 mg BID and increase as tolerated by 25 mg per day to a dose of 300 mg daily (in two divided dosages, or all at bedtime).' 12/30 -titrating clozapine to 12.5 am and 25mg hs for 12/30 with plan to increase to 25mg bid on 12/31 and likely further titration if tolerating -maintained Haldol decanoate and Haldol po unchanged for now, with consideration of weaning Haldol po dose if clozapine is effective ,, although pt appears to have history of both Haldol forms being rx'd while on past clozapine med trial. Pt has been observed by staff to be improving as obtaining medication of haldol (including the immediate IM doses) 12/31 close monitoring for checking, continue plan above for IM Haldol over objection if checking haldol scheduled doses. Maintain clozapine dosing plan for now with potential re-considering clozapine plan if compklaince issues are occuring. Consider further titration of haldol decanoate as appropaite. 01/01 - Patient refusing Clozaril. Will leave in place, but not force meds over objection for refusal - Increase Haldol to 10 mg AM and 15 mg HS, with meds over objection for refusal - Continue MNPR due to irritability and hx of violence 01/02 -continue oral haloperidol 10 mg every morning and 15 mg at bedtime (moved to later time to try to minimize sedation/spending excessive time in bed during the day), and Haldol decanoate, next injection due 01/19/2019. Continue Lorazepam as needed. -He continues to refuse clozapine. 01/03 - Continue current meds and plan - Continue MNPR in deference to history of violence toward others. 01/04 - Continue current meds and plan - Meeting scheduled with the [facility] to discuss disposition 01/05 - Change pills to liquid due to cheeking - Encourage patient to be out of bed and participating in his treatment - Planning meeting scheduled with the [facility] for next Saturday 01/06 -Patient agrees to a second Haldol Decanoate injection, 100 mg, with the hopes that we can taper him off oral haloperidol given his poor compliance. He has been on 25 mg p.o. daily, which is the equivalent of an initial dose of 500 mg decanoate (per UpToDate, dose of oral haloperidol > 10 mg and high risk of relapse, initiate dose at 20 times the daily oral dose). He got his initial Haldol Decanoate 100 mg on 12/22/2018. He will be due for his next injection on 01/19/2019, currently ordered for 200 mg, but may need to consider a higher dose given noncompliance with oral medication. Maintenance doses are typically 50- 200 mg. Will continue oral haloperidol liquid 10 mg every morning, but discontinue the 15 mg at bedtime dose. Oral haloperidol can be tapered over the period of the first 3 decanoate shots (60-90 days) depending on response. -Continue clozapine but decrease to 25 mg daily, as he has not been taking it, and continue to encourage him to try it, as it was reportedly beneficial in the past and stabilized him sufficiently to be discharged from the [facility]. -Continue as needed medications (Lorazepam, benztropine, haloperidol, and hydroxyzine). 01/07 -continue current medications and plan. 01/08 - Continue current meds and plan - Diversion meeting with the [facility] scheduled for tomorrow. 01/09 -continue private room given antisocial behavior/stealing. Meeting held with the [facility], who do not feel he is appropriate for CRR placement and support [facility] hospitalization. We have not yet received acceptance from [facility]. -Staff to search room daily and remove contraband, restrict patient's ability to keep items in his room due to repeated stealing and having access to items that could potentially be harmful, such as a large amount of hand pets and pet supplies salesperson. 01/10 -continue current plan. Coordinate with the [facility]. 01/11 - Continue current plan, awaiting acceptance and bed date from the [facility] - Although this is preferred plan, will need to arrange alternative options for appropriate discharge should bed date surpass ongoing criteria for inpatient admission 01/12 - Continue haloperidol 10mg qAM with scheduled injections of haloperidol decanoate - Given significant period of refusing scheduled clozapine - will cancel the medication and scheduled CBC blood draws - Awaiting acceptance to the [facility] and projected bed date - Continuing to work with [facility] resources should alternative arrangements be needed 01/15 - Continue current medication and treatment plan - On line of sight, MNPR, and high elopement precautions due to ongoing antisocial behaviors 01/16 - Continue current medication and treatment plan - Consider alternative housing options, boarding home or personal [place] [facility] to be explored 01/17 -continue current medications and plan. 01/19 - Continue current medication regimen - Meeting with claims customer service representative from [facility] today to explore alternative discharge plans] 01/20 haldol liquid po doses stopped, decanote dosing 300mg IM every [address] 02/16/19 (2) Noncompliance with medications: 12/14 -stopped his medications 6 months ago and has decompensated since. Would benefit from a long-acting injectable, and either long-term inpatient treatment at the [facility] or involuntary outpatient treatment.. 12/15 -The patient's psychosis and severely impaired insight seem to be making him and accessible to reason, regarding the essential importance of psychiatric medications. There is a past history of favorable response to haloperidol as well as to clozapine. It is agreed that the patient would in all likelihood benefit from a long-acting injectable antipsychotic medication, given his history of recurrent medication nonadherence. 12/16--currently taking PO for a few doses, is on extended involuntary commitment and clearly ongoing schizophrenia which will fail to improve for him to be able to provide self-care without ongoing treatments on inpatient unit and medications over objection. Without antipsychotic medication he is at significant risk of /serious disability and a danger to himself/others. Dr. Srinivasan could provide second opinion if he refuses PO med. 12/18- Patient refusing to consider LAMA at this time. Will continue to encourage 12/21 -patient continues to refuse Haldol Decanoate, and is now also refusing oral Haldol. We will proceed with medications over objection, as he has a diagnosis of primary thought disorder, has benefited from Haldol Decanoate in the past, he is actively delusional and is refusing medications due to psychotic thought processes, and is at risk of harm to both himself and others if he remains untreated. He has a significant history of violence tied to his delusions, and it will be important to get his symptoms adequately managed to decrease the risk of violence towards others here in the hospital. 12/22 -medication adherence is most certainly going issue with this patient. We are recommending the continued use of Depo forms of antipsychotic medications, but, in the past, the patient has simply refused to return to the office of the healthcare professional who is administering the sectionas was the case last year when, after doing reasonably well, he stopped going for treatment, and stopped excepting medications. For this reason, we are carefully looking for a supportive living setting for this patient, preferably one that has the resources necessary to assist the resistant, not adherent to patient. 12/24 - remains better compliant with PO meds 12/25 - Takes meds when he thinks he needs them, but voiced some question about taking anything regularly after discharge. 12/29 -the patient refused a dose of haloperidol yesterday and received haloperidol 10 mg intramuscularly over objection from disease no holes were required and the patient was cooperative with the injection closed with disease. Afterwards, he wondered out loud why he had refused the medication, knowing that he would get it "one way or the other." Because the patient seemed to have responded well, in terms of his disorganized thinking, to the intramuscular dose of haloperidol, there has been some discussion in the team regarding the question of "cheeking" his oral medications. However, the explanation may be that haloperidol 10 mg IM is more potent than orally. In any event, today the patient commits to continued adherence with his medications as he acknowledges that he does feel that they have been helpful to him. 12/31 -potential signs of non compliance 12/30 and 12/31, consider further titration of haldol deaconate as appropriate to help ensure as full of dose being obtained as possible. maintained plan of haldol IM injections for non compliance of haldol po doses 01/05- Switch Haldol to liquid due to cheeking. 01/06 -second dose of Haldol Decanoate as above. Will taper off of oral Haldol over the next 30-60 days, and ideally maintain him on injectable medication given his history of cheeking and noncompliance with oral medication. He continues to refuse clozapine, could consider the addition of an injectable atypical antipsychotic if Haldol Decanoate is insufficient to control symptoms. 01/09 -taking Haldol liquid, but refusing clozapine. Meeting help with the county to discuss potential diversion options, during which patient was delusional and demonstrated very poor insight. He continues to state he would not take medications after discharge. 01/12 - Given consistent refusal of scheduled clozapine since its initial administration, will discontinue scheduled dose as well as scheduled blood draws for CBCs 01/20 - haldol now decanoate IM only (3) Substance abuse: 12/14 -patient is not forthcoming, but mother reports he has been abusing alcohol, cough syrup, diphenhydramine, and likely other substances. We will monitor for withdrawal symptoms, and as his psychosis improves, will provide psychoeducation about the risks of substance abuse and recommendations for abstinence. -Avoid controlled substances given high risk of abuse/misuse/negative outcomes. 12/15 -It is recognized that the patient has an extensive history of abusing chemical substances, and it is generally agreed that use of controlled substances does pose significant risk of abuse and other negative outcomes in the long-term. However, the patient's irritability and unwillingness to cooperate with essential medications, such as haloperidol, as well as his history of physical aggression towards others, may be mitigated by the temporary use of a benzodiazepine. Today, a single dose of lorazepam seems to have been effective in helping the patient maintain composure during an involuntary commitment hearing that did not go in his favor, and staff have noticed that he has been somewhat more cooperative today, possibly in response to the dose of lorazepam. Accordingly, staff will continue to offer the patient as needed lorazepam. 12/21 -admission drug screen was positive for benzodiazepines, with significantly elevated temazepam (> 2000) and elevated oxazepam levels. Although he denied taking benzodiazepines prior to admission, he clearly was accessing them somehow. 12/22 -the patient is able to give what may be referred to as "lip service" to the concept of abstinence from drugs of abuse, but he seems to have little or no insight into the risks associated with his abuse of mood altering chemical substances, particularly within the context of his psychiatric illness. Again, a whole will be to identify an aftercare placement that we will be able to monitor him more assiduously for access to abusable chemical substances, including prescription medications, alcohol, and other drugs of abuse. (4) Antisocial personality disorder: 12/14 -extensive, lifelong history provided by adoptive mother which reveals a pervasive pattern of disregard for and violation of the rights of others which started at age 8 or earlier, failure to conform to social norms with respect to lawful behaviors as indicated by repeatedly performing acts that are grounds for arrest, deceitfulness, impulsivity and failure to plan ahead, irritability and aggressiveness, reckless disregard for safety of self and others, consistent irresponsibility, and lack of remorse. 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 -Reviewed expectations with respect to behavior on the unit. 12/15 -The patient's history of antisocial behavior is noted, and antisocial personality will not be a focus of treatment during this hospitalization. However, the record indicates that the patient's antisocial behaviors, which are lifelong, are mitigated to some extent when he is being successfully treated for his psychotic disorder. Accordingly, the approach will be to address his antisocial behaviors by focusing on addressing his psychosis. 12/22 -The patient's long-standing history of antisocial behaviorbehavior which reportedly predates the onset of his symptoms of schizophreniahave not been a focus of treatment and are unlikely to change. Careful monitoring, diversion, containment to the degree possible, to containment of the most appropriate interventions for this problem. 01/11 - Pt made aware again of unit expectations. With evidence of patient stealing keys and causing damage to room items - he remains on a medically necessary private room. His room is to be searched twice daily to ensure any stolen, non-essential, or potentially hazardous items are not being accumulated to the point of causing potential harm. Continue to enforce clear boundaries. 01/15 - Line of sight, high elopement precautions, and MNPR due to attempts to elope and repeatedly stealing and hiding items on the unit. Stole another patient's liquid medication off the med cart in the nurses' station and took 80- 100mg hydroxyzine, hid liquid citalopram in his room. Inventory Assets Strengths: Good physical health. Able to form alliances with certain peers. Concerned and supportive parents. Needs: Continued adherence with psychiatric medications, compliance with outpatient treatment, engagement in treatment, sobriety Risk Factors Assessment Male: Yes : Yes Do You Have Access To A Gun?: No Health Problems: Yes Mental Health Diagnoses: Yes Substance Use Disorders: Yes Previous Attempt: No Previous Psychiatric Hospitalization: Yes Hopelessness: No Smoker: Yes Protective Factors Assessment Adventist Beliefs: No : No Responsible for Young Children: No Employed: No Stable Relationships: No Supportive Family: Yes Good Rapport with Provider: No Absence of Any Risk Factors Above: No Interval History Identifying Information APRIL GONZALEZ is a 43-year-old M who lives in [place] with his parents, has a history of a psychotic disorder (specific diagnosis not yet known, but history of multiple previous hospitalizations including a 1 year state hospitalization in [place]), and was admitted on 12/14/18 03:41 on a 302 involuntary commitment for psychosis, treatment noncompliance, and erratic, unsafe behavior. He is on a 304 involuntary commitment as of 12/26/2018. Chief Complaint "no concerns". Review of Systems Sleep Information Total Hours of Sleep: 5 Sleep Comments: pt in bed at beginning of shift, but appeared to be asleep @0100 and thereafter. pt continue to be "line of sight" during the night. pt on q-15 minute checks Meal Information Percent Meal Consumed - Breakfast: 100 Percent Meal Consumed - Lunch: 0 Percent Meal Consumed - Dinner: 100 Nutrition Comment: per meal record Subjective Subjective Patient was seen & assessed and interval progress reviewed with nursing. pt endorsed AH that can not make out full words but hears a tone that tends to be positive but can be viewed as negative at times. Pt continues to deny other symptoms, pt weary Haldol could be causing wt gain. Pt appears comfortable with po Haldol being stopped liquid form and indicated to rfp writer ok with ongoing decanoate IM doses at prescribed amount/frequency. He reported feel relatively weak but denied issues with walking or rigidity or invol muscle movements. He denied other s/e concerns We are awaiting to hear back from [facility] regarding potential acceptance there. Pt indicated comfort in residing at [facility]. Staff denied current behavioral concerns from pt. denied depression anxiety agitation, anger si or hi. Physical Exam Psychiatric Orientation: alert, oriented x 3, oriented to person, oriented to place and + guarded (significantly); + uncooperative Apperance: appropriately dressed and + disheveled; + inappropriately groomed and + did not appear stated age Eye Contact: good eye contact, + fair eye contact and + poor eye contact (no contact at all with provider) Motor Behavior: steady gait and station, no abnormal motor movements (observed while laying in bed) and + psychomotor retardation Speech: normal rate/rhythm/volume of speech (brief responses to questions); no pressured speech Affect: euthymic affect (tired), + depressed affect, + flat affect, + blunted affect, + irritable affect and + constricted affect; + mood not congruent with affect Mood: + irritable mood; no depressed mood and no anxious mood Thought Process: goal directed thought process (for discharge), + circumstantial thought process (becomes a little animated discussing a historical medical workup), + tangential thought process, + looseness of associations, + perseveration (on [place] length of stay) and + concrete thought process; + thought process not clear or coherent Thought Content: + preoccupation (with going home), + paranoid, + cognitive distortions, reality based without delusions (none verbalized, limited willingness to participate in further discussion) and + delusions Suicidal Thoughts: denies suicidal thoughts Homicidal Thoughts: denies homicidal thoughts Hallucinations: no auditory 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 (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) and no visual 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 Cognition: remote memory grossly intact, attention grossly intact and language grossly intact; + recent memory not intact Estimated Intelligence: average estimated intelligence, consistent with education level and + below average estimated intelligence Insight: + poor insight, + impaired insight and + severely impaired insight Judgement: + limited judgement, + poor judgement, + impaired judgement and + severely impaired judgement Vital Signs (Past 24 Hours) Last Vital Signs Temp 36.4 C L 01/19/19 06:00 Pulse 96 H 01/19/19 06:00 Resp 18 01/19/19 06:00 BP 105/63 01/19/19 06:00 Pulse Ox 97 12/14/18 03:38 Results & Data Current Inpatient Medications Current Inpatient Medications: Current Inpatient Medications Acetaminophen (Tylenol) 650 mg PO Q4H PRN PRN Reason: Headache or Minor Fever Stop: 02/09/19 08:29 Last Admin: 01/20/19 10:47 Dose: 650 mg Documented by: Al Hydrox/Mg Hydrox/Simethicone (Maalox) 30 ml PO Q4H PRN PRN Reason: GI Upset Stop: 02/09/19 08:29 Benztropine Mesylate (Cogentin) 1 mg PO BID PRN PRN Reason: akathisia Stop: 02/09/19 08:29 Last Admin: 01/16/19 19:05 Dose: 1 mg Documented by: Bismuth Subsalicylate (Kaopectate) 15 ml PO PRN PRN PRN Reason: Loose Stool Stop: 02/09/19 08:29 Docusate Sodium (Colace) 100 mg PO HS PRN PRN Reason: constipation Stop: 02/09/19 08:29 Haloperidol Decanoate (Haldol Decanoate) 300 mg IM ONE ONE Stop: 02/16/19 15:08 Haloperidol Lactate (Haldol Lactate) 10 mg PO Q4H PRN PRN Reason: Psychosis or agitation Stop: 02/09/19 08:29 Haloperidol Lactate (Haldol) 10 mg IM 0900,1600 PRN PRN Reason: refusal of PO Stop: 02/09/19 08:29 Haloperidol Lactate (Haldol) 10 mg IM Q4 PRN PRN Reason: psychosis or agitation Stop: 02/09/19 08:29 Lorazepam (Ativan) 0.5 mg PO Q8H PRN PRN Reason: Agitation Stop: 02/07/19 14:59 Last Admin: 01/20/19 10:47 Dose: 0.5 mg Documented by: Magnesium Hydroxide (Milk Of Magnesia) 30 ml PO DAILY PRN PRN Reason: Heartburn Stop: 02/09/19 08:29 Menthol (Nice) 1 be BUCCAL Q2H PRN PRN Reason: Sore Throat Stop: 02/09/19 08:29 Miscellaneous (Remove Nicoderm Patch) 1 ea N/A DAILY@2100 [facility] Stop: 02/09/19 20:59 Last Admin: 01/19/19 20:59 Dose: Not Given Documented by: Nicotine (Nicoderm Cq) 21 mg TD QAM [facility] Stop: 02/09/19 08:59 Last Admin: 01/20/19 09:54 Dose: Not Given Documented by: Nicotine Polacrilex (Nicorette 2mg) 1 piece MT UD PRN PRN Reason: Nicotine Withdrawal Stop: 02/09/19 08:34 Last Admin: 01/19/19 15:51 Dose: 1 piece Documented by: Sodium Chloride ([place] Nasal) 1 - 2 sprays NA PRN PRN PRN Reason: Nasal Dryness/Congestion Stop: 02/09/19 08:34 Post Discharge Appointments Primary Care Physician Name Of Family Doctor: Denies Therapist Name of Therapist: Denies [employer]fuels Plant Operations Engineer Name of Biofuels Plant Operations Engineer: [employer] Phone Number for Biofuels Plant Operations Engineer: [phone] Case Management Appointment Comment: [address], [address], [facility] SMITA alanis CPT Code CPT Code 41649 (1) Schizophrenia Schizophrenia type: paranoid schizophrenia Qualified Code(s): F20.0 - Paranoid schizophrenia
[2019-01-21] MEDS: ACETAMINOPHEN 325 MG TAB PO PRN ×2 (09:14→17:58)
[2019-01-21] MEDS: LORazepam 0.5 MG TAB PO PRN ×2 (09:14→17:58)
[2019-01-21] MEDS: NICOTINE 21 MG/24 HR TDSY TD SCH (09:16)
[2019-01-21] MEDS: BENZTROPINE MESYLATE 1 MG TAB PO PRN (09:43)
--- NOTE | 2019-01-21 14:25 | Psychiatric Progress Note ---
Date of Service January 21, 2019 Impression / Recommendations Impression Patient remains paranoid and delusional, isolating his room with little to no interaction, in bed for the majority of the day. He is taking liquid haloperidol, and will receive Haldol decanoate on 01/19/2018. Reports yesterday from mother indicate that he has been leaving nonsensical messages for his mother. Referral to [facility] was made several weeks ago, and no response as to anticipated outcome. Exploring diversion plans and Forming Press Operator from [facility] meet with patient 01/19 with aim to hear back about this option on 01/22. Pt has remained poorly engaged, showing limited motivation to assist with discharge planning. liquid haldol po doses stopped 01/19 and haldol decanoate to now be 300mg IM dose every 4 weeks with next dose due 02/16/19. some restlessness and anxious based agtiation this morning that settled down, seeming to be tied to pt's frustration over still being in the hospital (1) Schizophrenia: 12/14 -patient is a poor historian, but mother provides historical information. 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 For now we will collect psychosis not otherwise specified. -Patient is refusing to sign releases for previous outpatient providers in [place], and staff contacted them but they refused to provide any information without a signed release. -Medically necessary private room due to psychosis, erratic and disorganized behavior, history of violence, and aggressive behavior and threats to harm others here in the hospital. -Start haloperidol 5 mg twice daily, as patient has a previous good response to Haldol Decanoate and clozapine. Recommend medications over objection once he is on a 303 involuntary commitment and has been seen by a second physician, as he has severe psychotic symptoms which are preventing him from accurately interpreting reality, influencing his behavior, and placing him at risk of harm to both himself and others as he has been acting on his delusions, experiencing auditory and visual 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, paranoia, engaging in unsafe behaviors including driving when he does not have a license or the knowledge to do so, abusing substances, and has been threatening towards others. He demonstrates no insight into his condition, but available information indicates response to treatment with antipsychotic medications in the past. -Medically necessary private room due to psychosis, aggressive behavior, and threats to harm others. -We will need to check fasting lipid profile and glucose once he is cooperative. -Excused from groups from the time being until able to participate appropriately. -Refusing to sign releases for parents, but mother is petitioner, so can inform her of the 303 hearing. 12/15 -The patient did accept a single dose of lorazepam this morning, and did seem to be somewhat more calm. He was mildly labile during his involuntary commitment hearing this morning, but managed to maintain control and was not aggressive during the hearing or upon learning that he had been retained by the customs officer. Accordingly, we will continue to offer him lorazepam, since this medication in his case does not seem to be disinhibiting and, at least today, appeared to have helped him manage angry impulses during his involuntary commitment hearing. -The treatment team and I agree that, if possible, we would like to convince the patient to voluntarily take oral medications. Reports are that this morning he came close to taking oral haloperidol, but at the last minute declined. He is telling us that he will consistently refused medications, but our hope is that as we are able to gain his trust he will become more cooperative. We will continue to try to convince the patient to take oral haloperidol, but if this is unsuccessful we will seek two physician approval of medication over objection and give Haldol 5 mg IM BID. 12/16--tolerating Haldol, titrate to 10 mg BID. 12/18 - Continue haldol 10 mg bid - Continue discussion about LAMA - Encourage better sleep hygiene, staying awake in the day to promote sleep at night. 12/19 - Patient allowed labs to be drawn. FBS 93, FLP WNL with the exception of triglycerides of 186. Counseled to avoid fatty red meats, saturated fats. 12/20 -Again discussed the recommendations for long-acting injectable antipsychotic medication with the patient, which he initially declined because he said medications are poison. He has a meeting with his family this afternoon, and I will order the first loading dose of Haldol Decanoate 50 mg IM to be administered this afternoon, and if he is unwilling to take it, we will likely need to proceed with medications over objection tomorrow. We will try to encourage him to accept the intervention, as he reportedly did fairly well on this medication in the past. 12/21 -proceed with medications over objection: Haldol Decanoate 100 mg IM today, and Haldol 10 mg IM for refusal of oral Haldol. He will need 100-200 mg of Haldol Decanoate every 4 weeks based on his current oral dose, so will continue oral haloperidol for now until we can monitor response to the decanoate. 12/22 -the patient received Haldol Decanoate intramuscularly today, as a medication over objection. He tolerated the injection well, and today tells me that he "feels pretty good." -Today, the patient's associations seemed to be fairly tight on examination. He tends to be somewhat concrete in his thinking, but, as above, he did seem able to understand our rationale for continuing inpatient treatment at this point. 12/23 - tolerating halol dec w/o EPS or other complaints. will need to consider reduction of oral dose in approx 1 week. 12/24 - pt remains less acutely behaviorally disturbed since Haldol dec injection last however evidenced mild acting out when physically uncomfortable today - will add standing docusate 100mg po qhs and encourage oral hydration today for complaint of hard stool - meeting w/ [facility] tomorrow to explore dispo options 12/25 - Increase in irritability - Planning meeting held with [facility]: possibility for CRR vs state hospital - Continue current meds and encourage prns 12/26 - 304 granted. Meeting with [facility], patient and parents held yesterday: parents confirmed he cannot return home. Treatment team and [facility] recommends state hospitalization, as patient not appropriate for CRR placement due to severity of symptoms and unwillingness for outpatient treatment and medications. 12/27 - Continue current medication regimen - Orders placed for necessary EKG, TB skin test to accompany [place] referral - Place on high elopement precautions last evening due to suspicious loitering at the entryway of the unit - Reviewed records from [facility] - previous diagnoses were schizoaffective disorder and substance abuse 12/28 - Continue current medication regimen - EKG and PPD completed yesterday - PPD will need read on 12/30 12/29 -Add clozapine 12.5 mg BID and increase as tolerated by 25 mg per day to a dose of 300 mg daily (in two divided dosages, or all at bedtime).' 12/30 -titrating clozapine to 12.5 am and 25mg hs for 12/30 with plan to increase to 25mg bid on 12/31 and likely further titration if tolerating -maintained Haldol decanoate and Haldol po unchanged for now, with consideration of weaning Haldol po dose if clozapine is effective ,, although pt appears to have history of both Haldol forms being rx'd while on past clozapine med trial. Pt has been observed by staff to be improving as obtaining medication of haldol (including the immediate IM doses) 12/31 close monitoring for checking, continue plan above for IM Haldol over objection if checking haldol scheduled doses. Maintain clozapine dosing plan for now with potential re-considering clozapine plan if compklaince issues are occuring. Consider further titration of haldol decanoate as appropaite. 01/01 - Patient refusing Clozaril. Will leave in place, but not force meds over objection for refusal - Increase Haldol to 10 mg AM and 15 mg HS, with meds over objection for refusal - Continue MNPR due to irritability and hx of violence 01/02 -continue oral haloperidol 10 mg every morning and 15 mg at bedtime (moved to later time to try to minimize sedation/spending excessive time in bed during the day), and Haldol decanoate, next injection due 01/19/2019. Continue Lorazepam as needed. -He continues to refuse clozapine. 01/03 - Continue current meds and plan - Continue MNPR in deference to history of violence toward others. 01/04 - Continue current meds and plan - Meeting scheduled with the [facility] to discuss disposition 01/05 - Change pills to liquid due to cheeking - Encourage patient to be out of bed and participating in his treatment - Planning meeting scheduled with the [facility] for next Saturday 01/06 -Patient agrees to a second Haldol Decanoate injection, 100 mg, with the hopes that we can taper him off oral haloperidol given his poor compliance. He has been on 25 mg p.o. daily, which is the equivalent of an initial dose of 500 mg decanoate (per UpToDate, dose of oral haloperidol > 10 mg and high risk of r elapse, initiate dose at 20 times the daily oral dose). He got his initial Haldol Decanoate 100 mg on 12/22/2018. He will be due for his next injection on 01/19/2019, currently ordered for 200 mg, but may need to consider a higher dose given noncompliance with oral medication. Maintenance doses are typically 50- 200 mg. Will continue oral haloperidol liquid 10 mg every morning, but discontinue the 15 mg at bedtime dose. Oral haloperidol can be tapered over the period of the first 3 decanoate shots (60-90 days) depending on response. -Continue clozapine but decrease to 25 mg daily, as he has not been taking it, and continue to encourage him to try it, as it was reportedly beneficial in the past and stabilized him sufficiently to be discharged from the [facility]. -Continue as needed medications (Lorazepam, benztropine, haloperidol, and hydroxyzine). 01/07 -continue current medications and plan. 01/08 - Continue current meds and plan - Diversion meeting with the [facility] scheduled for tomorrow. 01/09 -continue private room given antisocial behavior/stealing. Meeting held with the [facility], who do not feel he is appropriate for CRR placement and support state hospitalization. We have not yet received acceptance from [facility]. -Staff to search room daily and remove contraband, restrict patient's ability to keep items in his room due to repeated stealing and having access to items that could potentially be harmful, such as a large amount of hand machinist outside. 01/10 -continue current plan. Coordinate with the [facility]. 01/11 - Continue current plan, awaiting acceptance and bed date from the [facility] - Although this is preferred plan, will need to arrange alternative options for appropriate discharge should bed date surpass ongoing criteria for inpatient admission 01/12 - Continue haloperidol 10mg qAM with scheduled injections of haloperidol decanoate - Given significant period of refusing scheduled clozapine - will cancel the medication and scheduled CBC blood draws - Awaiting acceptance to the [facility] and projected bed date - Continuing to work with [facility] should alternative arrangements be needed 01/15 - Continue current medication and treatment plan - On line of sight, MNPR, and high elopement precautions due to ongoing antisocial behaviors 01/16 - Continue current medication and treatment plan - Consider alternative housing options, boarding home or personal skilled nursing to be explored 01/17 -continue current medications and plan. 01/19 - Continue current medication regimen - Meeting with product support representative from [facility] today to explore alternative discharge plans] 01/20 haldol liquid po doses stopped, decanote dosing 300mg IM every [address] 02/16/1901/21 maintained treatment plan unchanged (2) Noncompliance with medications: 12/14 -stopped his medications 6 months ago and has decompensated since. Would benefit from a long-acting injectable, and either long-term inpatient treatment at the [facility] or involuntary outpatient treatment.. 12/15 -The patient's psychosis and severely impaired insight seem to be making him and accessible to reason, regarding the essential importance of psychiatric medications. There is a past history of favorable response to haloperidol as well as to clozapine. It is agreed that the patient would in all likelihood benefit from a long-acting injectable antipsychotic medication, given his history of recurrent medication nonadherence. 12/16--currently taking PO for a few doses, is on extended involuntary commitment and clearly ongoing schizophrenia which will fail to improve for him to be able to provide self-care without ongoing treatments on inpatient unit and medications over objection. Without antipsychotic medication he is at significant risk of /serious disability and a danger to himself/others. Dr. Srinivasan could provide second opinion if he refuses PO med. 12/18- Patient refusing to consider LAMA at this time. Will continue to encourage 12/21 -patient continues to refuse Haldol Decanoate, and is now also refusing oral Haldol. We will proceed with medications over objection, as he has a diagnosis of primary thought disorder, has benefited from Haldol Decanoate in the past, he is actively delusional and is refusing medications due to psychotic thought processes, and is at risk of harm to both himself and others if he remains untreated. He has a significant history of violence tied to his delusions, and it will be important to get his symptoms adequately managed to decrease the risk of violence towards others here in the hospital. 12/22 -medication adherence is most certainly going issue with this patient. We are recommending the continued use of Depo forms of antipsychotic medications, but, in the past, the patient has simply refused to return to the office of the healthcare professional who is administering the sectionas was the case last year when, after doing reasonably well, he stopped going for treatment, and stopped excepting medications. For this reason, we are carefully looking for a supportive living setting for this patient, preferably one that has the resources necessary to assist the resistant, not adherent to patient. 12/24 - remains better compliant with PO meds 12/25 - Takes meds when he thinks he needs them, but voiced some question about taking anything regularly after discharge. 12/29 -the patient refused a dose of haloperidol yesterday and received haloperidol 10 mg intramuscularly over objection from disease no holes were required and the patient was cooperative with the injection closed with disease. Afterwards, he wondered out loud why he had refused the medication, knowing that he would get it "one way or the other." Because the patient seemed to have responded well, in terms of his disorganized thinking, to the intramuscular dose of haloperidol, there has been some discussion in the team regarding the ques tion of "cheeking" his oral medications. However, the explanation may be that haloperidol 10 mg IM is more potent than orally. In any event, today the patient commits to continued adherence with his medications as he acknowledges that he does feel that they have been helpful to him. 12/31 -potential signs of non compliance 12/30 and 12/31, consider further titration of haldol deaconate as appropriate to help ensure as full of dose being obtained as possible. maintained plan of haldol IM injections for non compliance of haldol po doses 01/05- Switch Haldol to liquid due to cheeking. 01/06 -second dose of Haldol Decanoate as above. Will taper off of oral Haldol over the next 30-60 days, and ideally maintain him on injectable medication given his history of cheeking and noncompliance with oral medication. He continues to refuse clozapine, could consider the addition of an injectable atypical antipsychotic if Haldol Decanoate is insufficient to control symptoms. 01/09 -taking Haldol liquid, but refusing clozapine. Meeting help with the county to discuss potential diversion options, during which patient was delusional and demonstrated very poor insight. He continues to state he would not take medications after discharge. 01/12 - Given consistent refusal of scheduled clozapine since its initial administration, will discontinue scheduled dose as well as scheduled blood draws for CBCs 01/20 - haldol now decanoate IM only (3) Substance abuse: 12/14 -patient is not forthcoming, but mother reports he has been abusing alcohol, cough syrup, diphenhydramine, and likely other substances. We will monitor for withdrawal symptoms, and as his psychosis improves, will provide psychoeducation about the risks of substance abuse and recommendations for abstinence. -Avoid controlled substances given high risk of abuse/misuse/negative outcomes. 12/15 -It is recognized that the patient has an extensive history of abusing chemical substances, and it is generally agreed that use of controlled substances does pose significant risk of abuse and other negative outcomes in the long-term. However, the patient's irritability and unwillingness to cooperate with essential medications, such as haloperidol, as well as his history of physical aggression towards others, may be mitigated by the temporary use of a benzodiazepine. Today, a single dose of lorazepam seems to have been effective in helping the patient maintain composure during an involuntary commitment hearing that did not go in his favor, and staff have noticed that he has been somewhat more cooperative today, possibly in response to the dose of lorazepam. Accordingly, staff will continue to offer the patient as needed lorazepam. 12/21 -admission drug screen was positive for benzodiazepines, with significantly elevated temazepam (> 2000) and elevated oxazepam levels. Although he denied taking benzodiazepines prior to admission, he clearly was accessing them somehow. 12/22 -the patient is able to give what may be referred to as "lip service" to the concept of abstinence from drugs of abuse, but he seems to have little or no insight into the risks associated with his abuse of mood altering chemical substances, particularly within the context of his psychiatric illness. Again, a whole will be to identify an aftercare placement that we will be able to monitor him more assiduously for access to abusable chemical substances, including prescription medications, alcohol, and other drugs of abuse. (4) Antisocial personality disorder: 12/14 -extensive, lifelong history provided by adoptive mother which reveals a pervasive pattern of disregard for and violation of the rights of others which started at age 8 or earlier, failure to conform to social norms with respect to lawful behaviors as indicated by repeatedly performing acts that are grounds for arrest, deceitfulness, impulsivity and failure to plan ahead, irritability and aggressiveness, reckless disregard for safety of self and others, consistent irresponsibility, and lack of remorse. 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 -Reviewed expectations with respect to behavior on the unit. 12/15 -The patient's history of antisocial behavior is noted, and antisocial personality will not be a focus of treatment during this hospitalization. However, the record indicates that the patient's antisocial behaviors, which are lifelong, are mitigated to some extent when he is being successfully treated for his psychotic disorder. Accordingly, the approach will be to address his antisocial behaviors by focusing on addressing his psychosis. 12/22 -The patient's long-standing history of antisocial behaviorbehavior which reportedly predates the onset of his symptoms of schizophreniahave not been a focus of treatment and are unlikely to change. Careful monitoring, diversion, containment to the degree possible, to containment of the most appropriate interventions for this problem. /2 - Pt made aware again of unit expectations. With evidence of patient stealing keys and causing damage to room items - he remains on a medically necessary private room. His room is to be searched twice daily to ensure any stolen, non-essential, or potentially hazardous items are not being accumulated to the point of causing potential harm. Continue to enforce clear boundaries. 5/6 - Line of sight, high elopement precautions, and MNPR due to attempts to elope and repeatedly stealing and hiding items on the unit. Stole another patient's liquid medication off the med cart in the nurses' station and took 80-100mg hydroxyzine, hid liquid citalopram in his room. Inventory Assets Strengths: Good physical health. Able to form alliances with certain peers. Concerned and supportive parents. Needs: Continued adherence with psychiatric medications, compliance with outpatient treatment, engagement in treatment, sobriety Risk Factors Assessment Male: Yes : Yes Do You Have Access To A Gun?: No Health Problems: Yes Mental Health Diagnoses: Yes Substance Use Disorders: Yes Previous Attempt: No Previous Psychiatric Hospitalization: Yes Hopelessness: No Smoker: Yes Protective Factors Assessment Presybeterian Beliefs: No : No Responsible for Young Children: No Employed: No Stable Relationships: No Supportive Family: Yes Good Rapport with Provider: No Absence of Any Risk Factors Above: No Interval History Identifying Information APRIL GONZALEZ is a 43-year-old M who lives in [place] with his parents, has a history of a psychotic disorder (specific diagnosis not yet known, but history of multiple previous hospitalizations including a 1 year state hospitalization in [place]), and was admitted on 12/14/18 03:41 on a 302 involuntary commitment for psychosis, treatment noncompliance, and erratic, unsafe behavior. He is on a 304 involuntary commitment as of 12/26/2018. Chief Complaint "I feel anxious" Review of Systems Sleep Information Total Hours of Sleep: 8.75 Sleep Comments: pt appeared to sleep 2.75 hrs during evening shift. pt on q-15 minute checks. pt continue with "line of sight" during the night. Meal Information Percent Meal Consumed - Breakfast: 100 Percent Meal Consumed - Lunch: 100 Percent Meal Consumed - Dinner: 90 Nutrition Comment: per meal record Subjective Subjective Patient was seen & assessed and interval progress reviewed with nursing. Staff indicted pt has been restless and anxious this morning. pt received his ativan and prn cogentin dose and had started to settle down some. HE was assessed in his room, preferring to stay in his room. He had the blinds down and light off and he sought to maintain them in this manner. He denied AH, denied any symptoms other then feeling anxious about having to be in the hospital finding it makes him feel cooped up. e declined behavioral interventions like gong to dayroom or opening up the blinds. However, very shortly after this assessment he was seen in the dayroom engaging some with staff and peers as they were in the dayroom seeming to be more settled. pt appears to attempt to sleep during the day time. Physical Exam Psychiatric Orientation: alert, oriented x 3, oriented to person, oriented to place and + guarded (significantly) Apperance: appropriately dressed and + disheveled; + inappropriately groomed and + did not appear stated age Eye Contact: + fair eye contact Motor Behavior: steady gait and station restless this morning prior cogentin dose Speech: normal rate/rhythm/volume of speech (brief responses to questions); no pressured speech Affect: + blunted affect Mood: + anxious mood Thought Process: goal directed thought process (for discharge) Thought Content: + preoccupation (with going home), + paranoid, + cognitive distortions, reality based without delusions (none verbalized, limited willingness to participate in further discussion) and + delusions Suicidal Thoughts: denies suicidal thoughts Homicidal Thoughts: denies homicidal thoughts Hallucinations: no auditory 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 (unreliable public address system operator) and no visual 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 Cognition: remote memory grossly intact, attention grossly intact and language grossly intact; + recent memory not intact Estimated Intelligence: + below average estimated intelligence Insight: + impaired insight Judgement: + limited judgement Vital Signs (Past 24 Hours) Last Vital Signs Temp 36.4 C L 01/19/19 06:00 Pulse 96 H 01/19/19 06:00 Resp 18 01/19/19 06:00 BP 105/63 01/19/19 06:00 Pulse Ox 97 12/14/18 03:38 Results & Data Current Inpatient Medications Current Inpatient Medications: Current Inpatient Medications Acetaminophen (Tylenol) 650 mg PO Q4H PRN PRN Reason: Headache or Minor Fever Stop: 02/09/19 08:29 Last Admin: 01/21/19 09:14 Dose: 650 mg Documented by: Al Hydrox/Mg Hydrox/Simethicone (Maalox) 30 ml PO Q4H PRN PRN Reason: GI Upset Stop: 02/09/19 08:29 Benztropine Mesylate (Cogentin) 1 mg PO BID PRN PRN Reason: akathisia Stop: 02/09/19 08:29 Last Admin: 01/21/19 09:43 Dose: 1 mg Documented by: Bismuth Subsalicylate (Kaopectate) 15 ml PO PRN PRN PRN Reason: Loose Stool Stop: 02/09/19 08:29 Docusate Sodium (Colace) 100 mg PO HS PRN PRN Reason: constipation Stop: 02/09/19 08:29 Haloperidol Decanoate (Haldol Decanoate) 300 mg IM ONE ONE Stop: 02/16/19 15:08 Haloperidol Lactate (Haldol Lactate) 10 mg PO Q4H PRN PRN Reason: Psychosis or agitation Stop: 02/09/19 08:29 Haloperidol Lactate (Haldol) 10 mg IM 0900,1600 PRN PRN Reason: refusal of PO Stop: 02/09/19 08:29 Haloperidol Lactate (Haldol) 10 mg IM Q4 PRN PRN Reason: psychosis or agitation Stop: 02/09/19 08:29 Lorazepam (Ativan) 0.5 mg PO Q8H PRN PRN Reason: Agitation Stop: 02/07/19 14:59 Last Admin: 01/21/19 09:14 Dose: 0.5 mg Documented by: Magnesium Hydroxide (Milk Of Magnesia) 30 ml PO DAILY PRN PRN Reason: Heartburn Stop: 02/09/19 08:29 Menthol (Nice) 1 be BUCCAL Q2H PRN PRN Reason: Sore Throat Stop: 02/09/19 08:29 Miscellaneous (Remove Nicoderm Patch) 1 ea N/A DAILY@2100 KELLY Stop: 02/09/19 20:59 Last Admin: 01/20/19 21:08 Dose: Not Given Documented by: Nicotine (Nicoderm Cq) 21 mg TD QAM KELLY Stop: 02/09/19 08:59 Last Admin: 01/21/19 09:16 Dose: Not Given Documented by: Nicotine Polacrilex (Nicorette 2mg) 1 piece MT UD PRN PRN Reason: Nicotine Withdrawal Stop: 02/09/19 08:34 Last Admin: 01/19/19 15:51 Dose: 1 piece Documented by: Sodium Chloride ([place] Nasal) 1 - 2 sprays NA PRN PRN PRN Reason: Nasal Dryness/Congestion Stop: 02/09/19 08:34 Post Discharge Appointments Primary Care Physician Name Of Family Doctor: Denies Psychiatrist Name of Psychiatrist: [facility] Psychiatrist's Psychiatric Appointment Comment: [address] [place] [address] Therapist Name of Therapist: Denies Television Script Writer Name of Television Script Writer: [employer] Phone Number for Television Script Writer: [phone] Case Management Appointment Comment: [address], [address], [place], [place] CPT Code CPT Code 25914 (1) Schizophrenia Schizophrenia type: paranoid schizophrenia Qualified Code(s): F20.0 - Paranoid schizophrenia
[2019-01-22] MEDS: NICOTINE 21 MG/24 HR TDSY TD SCH (09:57)
--- NOTE | 2019-01-22 11:22 | Psychiatric Progress Note ---
Date of Service January 22, 2019 Impression / Recommendations Impression The patient has been in good behavioral control and is less focused on delusional thought content. He has been tapered off of oral haloperidol, and received Haldol decanoate 300 mg on 01/20/2019.. Reports yesterday from mother indicate that he has been leaving nonsensical messages for his mother. Referral to [facility] was made several weeks ago, and no response as to anticipated outcome. Exploring diversion plans and Regulatory Manager from [facility] meet with patient 01/19 with aim to hear back about this option on 01/22. Pt has remained poorly engaged, showing limited motivation to assist with discharge planning. liquid haldol po doses stopped 01/19 and haldol decanoate to now be 300mg IM dose every 4 weeks with next dose due 02/16/19. some restlessness and anxious based agtiation this morning that settled down, seeming to be tied to pt's frustration over still being in the hospital (1) Schizophrenia: 12/14 -patient is a poor historian, but mother provides historical information. 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 For now we will collect psychosis not otherwise specified. -Patient is refusing to sign releases for previous outpatient providers in [place], and staff contacted them but they refused to provide any information without a signed release. -Medically necessary private room due to psychosis, erratic and disorganized behavior, history of violence, and aggressive behavior and threats to harm others here in the hospital. -Start haloperidol 5 mg twice daily, as patient has a previous good response to Haldol Decanoate and clozapine. Recommend medications over objection once he is on a 303 involuntary commitment and has been seen by a second physician, as he has severe psychotic symptoms which are preventing him from accurately interpreting reality, influencing his behavior, and placing him at risk of harm to both himself and others as he has been acting on his delusions, experiencing auditory and visual 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, paranoia, engaging in unsafe behaviors including driving when he does not have a license or the knowledge to do so, abusing substances, and has been threatening towards others. He demonstrates no insight into his condition, but available information indicates response to treatment with antipsychotic medications in the past. -Medically necessary private room due to psychosis, aggressive behavior, and threats to harm others. -We will need to check fasting lipid profile and glucose once he is cooperative. -Excused from groups from the time being until able to participate appropriately. -Refusing to sign releases for parents, but mother is petitioner, so can inform her of the 303 hearing. 12/15 -The patient did accept a single dose of lorazepam this morning, and did seem to be somewhat more calm. He was mildly labile during his involuntary commitment hearing this morning, but managed to maintain control and was not aggressive during the hearing or upon learning that he had been retained by the community development officer. Accordingly, we will continue to offer him lorazepam, since this medication in his case does not seem to be disinhibiting and, at least today, appeared to have helped him manage angry impulses during his involuntary commitment hearing. -The treatment team and I agree that, if possible, we would like to convince the patient to voluntarily take oral medications. Reports are that this morning he came close to taking oral haloperidol, but at the last minute declined. He is telling us that he will consistently refused medications, but our hope is that as we are able to gain his trust he will become more cooperative. We will continue to try to convince the patient to take oral haloperidol, but if this is unsuccessful we will seek two physician approval of medication over objection and give Haldol 5 mg IM BID. 12/16--tolerating Haldol, titrate to 10 mg BID. 12/18 - Continue haldol 10 mg bid - Continue discussion about LAMA - Encourage better sleep hygiene, staying awake in the day to promote sleep at night. 12/19 - Patient allowed labs to be drawn. FBS 93, FLP WNL with the exception of triglycerides of 186. Counseled to avoid fatty red meats, saturated fats. 12/20 -Again discussed the recommendations for long-acting injectable antipsychotic medication with the patient, which he initially declined because he said medications are poison. He has a meeting with his family this afternoon, and I will order the first loading dose of Haldol Decanoate 50 mg IM to be admi nistered this afternoon, and if he is unwilling to take it, we will likely need to proceed with medications over objection tomorrow. We will try to encourage him to accept the intervention, as he reportedly did fairly well on this medication in the past. 12/21 -proceed with medications over objection: Haldol Decanoate 100 mg IM today, and Haldol 10 mg IM for refusal of oral Haldol. He will need 100-200 mg of Haldol Decanoate every 4 weeks based on his current oral dose, so will continue oral haloperidol for now until we can monitor response to the decanoate. 12/22 -the patient received Haldol Decanoate intramuscularly today, as a medication over objection. He tolerated the injection well, and today tells me that he "feels pretty good." -Today, the patient's associations seemed to be fairly tight on examination. He tends to be somewhat concrete in his thinking, but, as above, he did seem able to understand our rationale for continuing inpatient treatment at this point. 12/23 - tolerating halol dec w/o EPS or other complaints. will need to consider reduction of oral dose in approx 1 week. 12/24 - pt remains less acutely behaviorally disturbed since Haldol dec injection last however evidenced mild acting out when physically uncomfortable today - will add standing docusate 100mg po qhs and encourage oral hydration today for complaint of hard stool - meeting w/ [facility] services tomorrow to explore dispo options 12/25 - Increase in irritability - Planning meeting held with [facility]: possibility for CRR vs state hospital - Continue current meds and encourage prns 12/26 - 304 granted. Meeting with [facility], patient and parents held yesterday: parents confirmed he cannot return home. Treatment team and [facility] recommends state hospitalization, as patient not appropriate for CRR placement due to severity of symptoms and unwillingness for outpatient treatment and medications. 12/27 - Continue current medication regimen - Orders placed for necessary EKG, TB skin test to accompany [facility] referral - Place on high elopement precautions last evening due to suspicious loitering at the entryway of the unit - Reviewed records from [facility] - previous diagnoses were schizoaffective disorder and substance abuse 12/28 - Continue current medication regimen - EKG and PPD completed yesterday - PPD will need read on 12/30 12/29 -Add clozapine 12.5 mg BID and increase as tolerated by 25 mg per day to a dose of 300 mg daily (in two divided dosages, or all at bedtime).' 12/30 -titrating clozapine to 12.5 am and 25mg hs for 12/30 with plan to increase to 25mg bid on 12/31 and likely further titration if tolerating -maintained Haldol decanoate and Haldol po unchanged for now, with consideration of weaning Haldol po dose if clozapine is effective ,, although pt appears to have history of both Haldol forms being rx'd while on past clozapine med trial. Pt has been observed by staff to be improving as obtaining medication of haldol (including the immediate IM doses) 12/31 close monitoring for checking, continue plan above for IM Haldol over objection if checking haldol scheduled doses. Maintain clozapine dosing plan for now with potential re-considering clozapine plan if compklaince issues are occuring. Consider further titration of haldol decanoate as appropaite. 01/01 - Patient refusing Clozaril. Will leave in place, but not force meds over objection for refusal - Increase Haldol to 10 mg AM and 15 mg HS, with meds over objection for refusal - Continue MNPR due to irritability and hx of violence 01/02 -continue oral haloperidol 10 mg every morning and 15 mg at bedtime (moved to later time to try to minimize sedation/spending excessive time in bed during the day), and Haldol decanoate, next injection due 01/19/2019. Continue Lorazepam as needed. -He continues to refuse clozapine. 01/03 - Continue current meds and plan - Continue MNPR in deference to history of violence toward others. 01/04 - Continue current meds and plan - Meeting scheduled with the [facility] to discuss disposition 01/05 - Change pills to liquid due to cheeking - Encourage patient to be out of bed and participating in his treatment - Planning meeting scheduled with the [facility] for next Saturday 01/06 -Patient agrees to a second Haldol Decanoate injection, 100 mg, with the hopes that we can taper him off oral haloperidol given his poor compliance. He has been on 25 mg p.o. daily, which is the equivalent of an initial dose of 500 mg decanoate (per UpToDate, dose of oral haloperidol > 10 mg and high risk of relapse, initiate dose at 20 times the daily oral dose). He got his initial Haldol Decanoate 100 mg on 12/22/2018. He will be due for his next injection on 01/19/2019, currently ordered for 200 mg, but may need to consider a higher dose given noncompliance with oral medication. Maintenance doses are typically 50- 200 mg. Will continue oral haloperidol liquid 10 mg every morning, but discontinue the 15 mg at bedtime dose. Oral haloperidol can be tapered over the period of the first 3 decanoate shots (60-90 days) depending on response. -Continue clozapine but decrease to 25 mg daily, as he has not been taking it, and continue to encourage him to try it, as it was reportedly beneficial in the past and stabilized him sufficiently to be discharged from the [facility]. -Continue as needed medications (Lorazepam, benztropine, haloperidol, and hydroxyzine). 01/07 -continue current medications and plan. 01/08 - Continue current meds and plan - Diversion meeting with the [facility] scheduled for tomorrow. 01/09 -continue private room given antisocial behavior/stealing. Meeting held with the [facility], who do not feel he is appropriate for CRR placement and support state hospitalization. We have not yet received acceptance from [facility]. -Staff to search room daily and remove contraband, restrict patient's ability to keep items in his room due to repeated stealing and having access to items that could potentially be harmful, such as a large amount of hand infant room teacher. 01/10 -continue current plan. Coordinate with the [facility]. 2 - Continue current plan, awaiting acceptance and bed date from the [facility] - Although this is preferred plan, will need to arrange alternative options for appropriate discharge should bed date surpass ongoing criteria for inpatient admission 5 - Continue haloperidol 10mg qAM with scheduled injections of haloperidol decanoate - Given significant period of refusing scheduled clozapine - will cancel the medication and scheduled CBC blood draws - Awaiting acceptance to the [facility] hospital and projected bed date - Continuing to work with [facility] resources should alternative arrangements be needed 56 - Continue current medication and treatment plan - On line of sight, MNPR, and high elopement precautions due to ongoing antisocial behaviors 01/16 - Continue current medication and treatment plan - Consider alternative housing options, boarding home or personal detention to be explored 01/17 -continue current medications and plan. 01/19 - Continue current medication regimen - Meeting with real estate representative from [facility] today to explore alternative discharge plans] 01/20 haldol liquid po doses stopped, decanote dosing 300mg IM every 4 weeks, next due 02/16/1901/21 -maintained treatment plan unchanged 01/22 -continue exploration of diversion options, [facility] Social work has discussed the possibility of diversion with the patient's mother who is his rep payee. (2) Noncompliance with medications: 12/14 -stopped his medications 6 months ago and has decompensated since. Would benefit from a long-acting injectable, and either long-term inpatient treatment at the [facility] or involuntary outpatient treatment.. 12/15 -The patient's psychosis and severely impaired insight seem to be making him and accessible to reason, regarding the essential importance of psychiatric medications. There is a past history of favorable response to haloperidol as well as to clozapine. It is agreed that the patient would in all likelihood benefit from a long-acting injectable antipsychotic medication, given his history of recurrent medication nonadherence. 12/16--currently taking PO for a few doses, is on extended involuntary commitment and clearly ongoing schizophrenia which will fail to improve for him to be able to provide self-care without ongoing treatments on inpatient unit and medications over objection. Without antipsychotic medication he is at significant risk of /serious disability and a danger to himself/others. Dr. Srinivasan could provide second opinion if he refuses PO med. 12/18- Patient refusing to consider LAMA at this time. Will continue to encourage 12/21 -patient continues to refuse Haldol Decanoate, and is now also refusing oral Haldol. We will proceed with medications over objection, as he has a diagnosis of primary thought disorder, has benefited from Haldol Decanoate in the past, he is actively delusional and is refusing medications due to psychotic thought processes, and is at risk of harm to both himself and others if he remains untreated. He has a significant history of violence tied to his delusions, and it will be important to get his symptoms adequately managed to de crease the risk of violence towards others here in the hospital. 12/22 -medication adherence is most certainly going issue with this patient. We are recommending the continued use of Depo forms of antipsychotic medications, but, in the past, the patient has simply refused to return to the office of the healthcare professional who is administering the sectionas was the case last year when, after doing reasonably well, he stopped going for treatment, and stopped excepting medications. For this reason, we are carefully looking for a supportive living setting for this patient, preferably one that has the resources necessary to assist the resistant, not adherent to patient. 12/24 - remains better compliant with PO meds 12/25 - Takes meds when he thinks he needs them, but voiced some question about taking anything regularly after discharge. 12/29 -the patient refused a dose of haloperidol yesterday and received haloperidol 10 mg intramuscularly over objection from disease no holes were r equired and the patient was cooperative with the injection closed with disease. Afterwards, he wondered out loud why he had refused the medication, knowing that he would get it "one way or the other." Because the patient seemed to have responded well, in terms of his disorganized thinking, to the intramuscular dose of haloperidol, there has been some discussion in the team regarding the question of "cheeking" his oral medications. However, the explanation may be that haloperidol 10 mg IM is more potent than orally. In any event, today the patient commits to continued adherence with his medications as he acknowledges that he does feel that they have been helpful to him. 12/31 -potential signs of non compliance 12/30 and 12/31, consider further titration of haldol deaconate as appropriate to help ensure as full of dose being obtained as possible. maintained plan of haldol IM injections for non compliance of haldol po doses 01/05- Switch Haldol to liquid due to cheeking. 01/06 -second dose of Haldol Decanoate as above. Will taper off of oral Haldol over the next 30-60 days, and ideally maintain him on injectable medication given his history of cheeking and noncompliance with oral medication. He continues to refuse clozapine, could consider the addition of an injectable atypical antipsychotic if Haldol Decanoate is insufficient to control symptoms. 01/09 -taking Haldol liquid, but refusing clozapine. Meeting help with the county to discuss potential diversion options, during which patient was delusional and demonstrated very poor insight. He continues to state he would n ot take medications after discharge. 01/12 - Given consistent refusal of scheduled clozapine since its initial administration, will discontinue scheduled dose as well as scheduled blood draws for CBCs 5/11 - haldol now decanoate IM only (3) Substance abuse: 12/14 -patient is not forthcoming, but mother reports he has been abusing alcohol, cough syrup, diphenhydramine, and likely other substances. We will monitor for withdrawal symptoms, and as his psychosis improves, will provide psychoeducation about the risks of substance abuse and recommendations for abstinence. -Avoid controlled substances given high risk of abuse/misuse/negative outcomes. 12/15 -It is recognized that the patient has an extensive history of abusing chemical substances, and it is generally agreed that use of controlled substances does pose significant risk of abuse and other negative outcomes in the long-term. However, the patient's irritability and unwillingness to printing services coordinator perate with essential medications, such as haloperidol, as well as his history of physical aggression towards others, may be mitigated by the temporary use of a benzodiazepine. Today, a single dose of lorazepam seems to have been effective in helping the patient maintain composure during an involuntary commitment hearing that did not go in his favor, and staff have noticed that he has been somewhat more cooperative today, possibly in response to the dose of lorazepam. Accordingly, staff will continue to offer the patient as needed lorazepam. 12/21 -admission drug screen was positive for benzodiazepines, with significantly elevated temazepam (> 2000) and elevated oxazepam levels. Although he denied taking benzodiazepines prior to admission, he clearly was accessing them somehow. 12/22 -the patient is able to give what may be referred to as "lip service" to the concept of abstinence from drugs of abuse, but he seems to have little or no insight into the risks associated with his abuse of mood altering chemical substances, particularly within the context of his psychiatric illness. Again, a whole will be to identify an aftercare placement that we will be able to monitor him more assiduously for access to abusable chemical substances, including prescription medications, alcohol, and other drugs of abuse. 01/22 -patient has been requesting and receiving Lorazepam 0.5 mg 1-2 times daily. We will decrease this to a maximum of once daily, as it should not be continued outside of the hospital given his substance abuse issues, and it may be contributing to sedation as he spends much of his time in bed. (4) Antisocial personality disorder: 12/14 -extensive, lifelong history provided by adoptive mother which reveals a pervasive pattern of disregard for and violation of the rights of others which started at age 8 or earlier, failure to conform to social norms with respect to lawful behaviors as indicated by repeatedly performing acts that are grounds for arrest, deceitfulness, impulsivity and failure to plan ahead, irritability and aggressiveness, reckless disregard for safety of self and others, consistent irresponsibility, and lack of remorse. 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 -Reviewed expectations with respect to behavior on the unit. 12/15 -The patient's history of antisocial behavior is noted, and antisocial personality will not be a focus of treatment during this hospitalization. However, the record indicates that the patient's antisocial behaviors, which are lifelong, are mitigated to some extent when he is being successfully treated for his psychotic disorder. Accordingly, the approach will be to address his antisocial behaviors by focusing on addressing his psychosis. 12/22 -The patient's long-standing history of antisocial behaviorbehavior which reportedly predates the onset of his symptoms of schizophreniahave not been a focus of treatment and are unlikely to change. Careful monitoring, diversion, containment to the degree possible, to containment of the most appropriate interventions for this problem. 5/2 - Pt made aware again of unit expectations. With evidence of patient stealing keys and causing damage to room items - he remains on a medically necessary private room. His room is to be searched twice daily to ensure any stolen, non-essential, or potentially hazardous items are not being accumulated to the point of causing potential harm. Continue to enforce clear boundaries. 5/6 - Line of sight, high elopement precautions, and MNPR due to attempts to elope and repeatedly stealing and hiding items on the unit. Stole another patient's liquid medication off the med cart in the nurses' station and took 80- 100mg hydroxyzine, hid liquid citalopram in his room. Inventory Assets Strengths: Good physical health. Able to form alliances with certain peers. Concerned and supportive parents. Needs: Continued adherence with psychiatric medications, compliance with outpatient treatment, engagement in treatment, sobriety Risk Factors Assessment Male: Yes : Yes Do You Have Access To A Gun?: No Health Problems: Yes Mental Health Diagnoses: Yes Substance Use Disorders: Yes Previous Attempt: No Previous Psychiatric Hospitalization: Yes Hopelessness: No Smoker: Yes Protective Factors Assessment Faith Beliefs: No : No Responsible for Young Children: No Employed: No Stable Relationships: No Supportive Family: Yes Good Rapport with Provider: No Absence of Any Risk Factors Above: No Interval History Identifying Information APRIL GONZALEZ is a 43-year-old M who lives in [place] with his parents, has a history of a psychotic disorder (specific diagnosis not yet known, but history of multiple previous hospitalizations including a 1 year state hospitalization in [place]), and was admitted on 12/14/18 03:41 on a 302 involuntary commitment for psychosis, treatment noncompliance, and erratic, unsafe behavior. He is on a 304 involuntary commitment as of 12/26/2018. Chief Complaint "Fine". Review of Systems Sleep Information Total Hours of Sleep: 4.5 Sleep Comments: pt appeared to sleep 2.75 hrs during evening shift. pt on q-15 minute checks. pt continue with "line of sight" during the night. Meal Information Percent Meal Consumed - Breakfast: 100 Percent Meal Consumed - Lunch: 100 Percent Meal Consumed - Dinner: 100 Nutrition Comment: per meal record Subjective Subjective Patient was seen & assessed and interval progress reviewed with Treatment Team. Staff report he was out of his room more over the weekend, interacting with peers, and attended groups with staff encouragement. Staff contacted his mother and informed her that a referral has been made to [facility]. He has been requesting and receiving lorazepam 0.5 mg 1-2 times daily. On my assessment, he reports mood is "good," denies 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, thoughts of harming himself or others, and paranoia. He is willing to go to [facility] if he is accepted there, but continues to state he does not want to take medication. Discussed the role of his antipsychotic injection, and that if he is able to stay stable, he could discuss a trial of a different medication with his outpatient psychiatrist. Physical Exam Psychiatric Orientation: alert, cooperative (Partially, gives brief answers) and + guarded Apperance: + disheveled Overweight Eye Contact: + poor eye contact Motor Behavior: no abnormal motor movements Speech: normal rate/rhythm/volume of speech (Minimal) Affect: + blunted affect Okay." Thought Process: goal directed thought process Thought Content: reality based without delusions Suicidal Thoughts: denies suicidal thoughts Homicidal Thoughts: denies homicidal thoughts Hallucinations: no auditory 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 and no visual 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 Cognition: attention grossly intact and language grossly intact Estimated Intelligence: average estimated intelligence Insight: + severely impaired insight Judgement: + impaired judgement Vital Signs (Past 24 Hours) Last Vital Signs Temp 36.4 C L 01/19/19 06:00 Pulse 96 H 01/19/19 06:00 Resp 18 01/19/19 06:00 BP 105/63 01/19/19 06:00 Pulse Ox 97 12/14/18 03:38 Results & Data Current Inpatient Medications Current Inpatient Medications: Current Inpatient Medications Acetaminophen (Tylenol) 650 mg PO Q4H PRN PRN Reason: Headache or Minor Fever Stop: 02/09/19 08:29 Last Admin: 01/21/19 17:58 Dose: 650 mg Documented by: Al Hydrox/Mg Hydrox/Simethicone (Maalox) 30 ml PO Q4H PRN PRN Reason: GI Upset Stop: 02/09/19 08:29 Benztropine Mesylate (Cogentin) 1 mg PO BID PRN PRN Reason: akathisia Stop: 02/09/19 08:29 Last Admin: 01/21/19 09:43 Dose: 1 mg Documented by: Bismuth Subsalicylate (Kaopectate) 15 ml PO PRN PRN PRN Reason: Loose Stool Stop: 02/09/19 08:29 Docusate Sodium (Colace) 100 mg PO HS PRN PRN Reason: constipation Stop: 02/09/19 08:29 Haloperidol Decanoate (Haldol Decanoate) 300 mg IM ONE ONE Stop: 02/16/19 15:08 Haloperidol Lactate (Haldol Lactate) 10 mg PO Q4H PRN PRN Reason: Psychosis or agitation Stop: 02/09/19 08:29 Haloperidol Lactate (Haldol) 10 mg IM 0900,1600 PRN PRN Reason: refusal of PO Stop: 02/09/19 08:29 Haloperidol Lactate (Haldol) 10 mg IM Q4 PRN PRN Reason: psychosis or agitation Stop: 02/09/19 08:29 Lorazepam (Ativan) 0.5 mg PO Q8H PRN PRN Reason: Agitation Stop: 02/07/19 14:59 Last Admin: 01/21/19 17:58 Dose: 0.5 mg Documented by: Magnesium Hydroxide (Milk Of Magnesia) 30 ml PO DAILY PRN PRN Reason: Heartburn Stop: 02/09/19 08:29 Menthol (Nice) 1 be BUCCAL Q2H PRN PRN Reason: Sore Throat Stop: 02/09/19 08:29 Miscellaneous (Remove Nicoderm Patch) 1 ea N/A DAILY@2100 [facility] Stop: 02/09/19 20:59 Last Admin: 01/21/19 21:03 Dose: Not Given Documented by: Nicotine (Nicoderm Cq) 21 mg TD QAM KELLY Stop: 02/09/19 08:59 Last Admin: 01/22/19 09:57 Dose: Not Given Documented by: Nicotine Polacrilex (Nicorette 2mg) 1 piece MT UD PRN PRN Reason: Nicotine Withdrawal Stop: 02/09/19 08:34 Last Admin: 01/19/19 15:51 Dose: 1 piece Documented by: Sodium Chloride ([place] Nasal) 1 - 2 sprays NA PRN PRN PRN Reason: Nasal Dryness/Congestion Stop: 02/09/19 08:34 Post Discharge Appointments Primary Care Physician Name Of Family Doctor: Denies Psychiatrist Name of Psychiatrist: [facility] Anuradha Ramírez for the assessment (Important! Next injection due 02/16) Psychiatrist's Date of Appointment with Psychiatrist: 01/30/19 Time of Appointment with Psychiatrist: 9:00 a.m. Psychiatric Appointment Comment: [address] [place] [id number] Therapist Name of Therapist: Denies Assistant Chief Engineer Name of Assistant Chief Engineer: [employer] Phone Number for Assistant Chief Engineer: [phone] Case Management Appointment Comment: [address] [facility], [address], [place], [place] CPT Code CPT Code 63738 (1) Schizophrenia Schizophrenia type: paranoid schizophrenia Qualified Code(s): F20.0 - Paranoid schizophrenia
[2019-01-22] MEDS: LORazepam 0.5 MG TAB PO PRN (20:53)
[2019-01-22] MEDS: ACETAMINOPHEN 325 MG TAB PO PRN (20:53)
[2019-01-23] MEDS: NICOTINE 21 MG/24 HR TDSY TD SCH (10:00)
[2019-01-23] MEDS: ACETAMINOPHEN 325 MG TAB PO PRN ×2 (10:31→18:38)
[2019-01-23] MEDS: LORazepam 0.5 MG TAB PO PRN (10:31)
--- NOTE | 2019-01-23 13:18 | Psychiatric Progress Note ---
Date of Service January 23, 2019 Impression / Recommendations Impression Received confirmation today the patient has been accepted [facility]. We will attempt to convert 304 inpatient commitment to a 304 outpatient commitment, with plan for anticipated discharge early next week. We still have not heard anything regarding referral to [facility], therefore have pursued diversion plans. Patient was agreeable to meeting with case finisher today and participated appropriately. (1) Schizophrenia: 12/14 -patient is a poor historian, but mother provides historical information. 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 For now we will collect psychosis not otherwise specified. -Patient is refusing to sign releases for previous outpatient providers in [place], and staff contacted them but they refused to provide any information without a signed release. -Medically necessary private room due to psychosis, erratic and disorganized behavior, history of violence, and aggressive behavior and threats to harm others here in the hospital. -Start haloperidol 5 mg twice daily, as patient has a previous good response to Haldol Decanoate and clozapine. Recommend medications over objection once he is on a 303 involuntary commitment and has been seen by a second physician, as he has severe psychotic symptoms which are preventing him from accurately interpreting reality, influencing his behavior, and placing him at risk of harm to both himself and others as he has been acting on his delusions, experiencing auditory and visual 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, paranoia, engaging in unsafe behaviors including driving when he does not have a license or the knowledge to do so, abusing substances, and has been threatening towards others. He demonstrates no insight into his condition, but available information indicates response to treatment with antipsychotic medications in the past. -Medically necessary private room due to psychosis, aggressive behavior, and threats to harm others. -We will need to check fasting lipid profile and glucose once he is cooperative. -Excused from groups from the time being until able to participate appropriate ly. -Refusing to sign releases for parents, but mother is petitioner, so can inform her of the 303 hearing. 12/15 -The patient did accept a single dose of lorazepam this morning, and did seem to be somewhat more calm. He was mildly labile during his involuntary commitment hearing this morning, but managed to maintain control and was not aggressive during the hearing or upon learning that he had been retained by the forest officer. Accordingly, we will continue to offer him lorazepam, since this medication in his case does not seem to be disinhibiting and, at least today, appeared to have helped him manage angry impulses during his involuntary commitment hearing. -The treatment team and I agree that, if possible, we would like to convince the patient to voluntarily take oral medications. Reports are that this morning he came close to taking oral haloperidol, but at the last minute declined. He is telling us that he will consistently refused medications, but our hope is that as we are able to gain his trust he will become more cooperative. We will continue to try to convince the patient to take oral haloperidol, but if this is unsuccessful we will seek two physician approval of medication over objection and give Haldol 5 mg IM BID. 12/16--tolerating Haldol, titrate to 10 mg BID. 12/18 - Continue haldol 10 mg bid - Continue discussion about LAMA - Encourage better sleep hygiene, staying awake in the day to promote sleep at night. 12/19 - Patient allowed labs to be drawn. FBS 93, FLP WNL with the exception of triglycerides of 186. Counseled to avoid fatty red meats, saturated fats. 12/20 -Again discussed the recommendations for long-acting injectable antipsychotic medication with the patient, which he initially declined because he said medications are poison. He has a meeting with his family this afternoon, and I will order the first loading dose of Haldol Decanoate 50 mg IM to be administered this afternoon, and if he is unwilling to take it, we will likely n eed to proceed with medications over objection tomorrow. We will try to encourage him to accept the intervention, as he reportedly did fairly well on this medication in the past. 12/21 -proceed with medications over objection: Haldol Decanoate 100 mg IM today, and Haldol 10 mg IM for refusal of oral Haldol. He will need 100-200 mg of Haldol Decanoate every 4 weeks based on his current oral dose, so will continue oral haloperidol for now until we can monitor response to the decanoate. 12/22 -the patient received Haldol Decanoate intramuscularly today, as a medication over objection. He tolerated the injection well, and today tells me that he "feels pretty good." -Today, the patient's associations seemed to be fairly tight on examination. He tends to be somewhat concrete in his thinking, but, as above, he did seem able to understand our rationale for continuing inpatient treatment at this point. 12/23 - tolerating halol dec w/o EPS or other complaints. will need to consider reduction of oral dose in approx 1 week. 12/24 - pt remains less acutely behaviorally disturbed since Haldol dec injection last however evidenced mild acting out when physically uncomfortable today - will add standing docusate 100mg po qhs and encourage oral hydration today for complaint of hard stool - meeting / [facility] services tomorrow to explore dispo options 12/25 - Increase in irritability - Planning meeting held with [facility]: possibility for CRR vs state hospital - Continue current meds and encourage prns 12/26 - 304 granted. Meeting with [facility], patient and parents held yesterday: parents confirmed he cannot return home. Treatment team and [facility] recommends state hospitalization, as patient not appropriate for CRR placement due to severity of symptoms and unwillingness for outpatient treatment and medications. 12/27 - Continue current medication regimen - Orders placed for necessary EKG, TB skin test to accompany [facility] referral - Place on high elopement precautions last evening due to suspicious loitering at the entryway of the unit - Reviewed records from [facility] - previous diagnoses were schizoaffective disorder and substance abuse 12/28 - Continue current medication regimen - EKG and PPD completed yesterday - PPD will need read on 12/30 12/29 -Add clozapine 12.5 mg BID and increase as tolerated by 25 mg per day to a dose of 300 mg daily (in two divided dosages, or all at bedtime).' 12/30 -titrating clozapine to 12.5 am and 25mg hs for 12/30 with plan to increase to 25mg bid on 12/31 and likely further titration if tolerating -maintained Haldol decanoate and Haldol po unchanged for now, with consideration of weaning Haldol po dose if clozapine is effective ,, although pt appears to have history of both Haldol forms being rx'd while on past clozapine med trial. Pt has been observed by staff to be improving as obtaining medication of haldol (including the immediate IM doses) 12/31 close monitoring for checking, continue plan above for IM Haldol over objection if checking haldol scheduled doses. Maintain clozapine dosing plan for now with potential re-considering clozapine plan if compklaince issues are o ccuring. Consider further titration of haldol decanoate as appropaite. 01/01 - Patient refusing Clozaril. Will leave in place, but not force meds over objection for refusal - Increase Haldol to 10 mg AM and 15 mg HS, with meds over objection for refusal - Continue MNPR due to irritability and hx of violence 01/02 -continue oral haloperidol 10 mg every morning and 15 mg at bedtime (moved to later time to try to minimize sedation/spending excessive time in bed during the day), and Haldol decanoate, next injection due 01/19/2019. Continue Lorazepam as needed. -He continues to refuse clozapine. 01/03 - Continue current meds and plan - Continue MNPR in deference to history of violence toward others. 01/04 - Continue current meds and plan - Meeting scheduled with the [facility] to discuss disposition 01/05 - Change pills to liquid due to cheeking - Encourage patient to be out of bed and participating in his treatment - Planning meeting scheduled with the [facility] for next Saturday 01/06 -Patient agrees to a second Haldol Decanoate injection, 100 mg, with the hopes that we can taper him off oral haloperidol given his poor compliance. He has been on 25 mg p.o. daily, which is the equivalent of an initial dose of 500 mg decanoate (per UpToDate, dose of oral haloperidol > 10 mg and high risk of relapse, initiate dose at 20 times the daily oral dose). He got his initial Haldol Decanoate 100 mg on 12/22/2018. He will be due for his next injection on 01/19/2019, currently ordered for 200 mg, but may need to consider a higher dose given noncompliance with oral medication. Maintenance doses are typically 50- 200 mg. Will continue oral haloperidol liquid 10 mg every morning, but discontinue the 15 mg at bedtime dose. Oral haloperidol can be tapered over the period of the first 3 decanoate shots (60-90 days) depending on response. -Continue clozapine but decrease to 25 mg daily, as he has not been taking it, and continue to encourage him to try it, as it was reportedly beneficial in the past and stabilized him sufficiently to be discharged from the state hospital. -Continue as needed medications (Lorazepam, benztropine, haloperidol, and hydroxyzine). 01/07 -continue current medications and plan. 01/08 - Continue current meds and plan - Diversion meeting with the [facility] scheduled for tomorrow. 01/09 -continue private room given antisocial behavior/stealing. Meeting held with the [facility], who do not feel he is appropriate for CRR placement and support state hospitalization. We have not yet received acceptance from [facility]. -Staff to search room daily and remove contraband, restrict patient's ability to keep items in his room due to repeated stealing and having access to items that could potentially be harmful, such as a large amount of hand power washer. 01/10 -continue current plan. Coordinate with the [facility]. 01/11 - Continue current plan, awaiting acceptance and bed date from the [facility] - Although this is preferred plan, will need to arrange alternative options for appropriate discharge should bed date surpass ongoing criteria for inpatient admission 01/12 - Continue haloperidol 10mg qAM with scheduled injections of haloperidol decanoate - Given significant period of refusing scheduled clozapine - will cancel the medication and scheduled CBC blood draws - Awaiting acceptance to the [facility] and projected bed date - Continuing to work with [facility] resources should alternative arrangements be needed 01/15 - Continue current medication and treatment plan - On line of sight, MNPR, and high elopement precautions due to ongoing antisocial behaviors 01/16 - Continue current medication and treatment plan - Consider alternative housing options, boarding home or personal chcf to be explored 01/17 -continue current medications and plan. 01/19 - Continue current medication regimen - Meeting with retail account representative from [facility] today to explore alternative discharge plans] 01/20 haldol liquid po doses stopped, decanote dosing 300mg IM every 4 weeks, next due 02/16/1901/21 -maintained treatment plan unchanged 01/22 -continue exploration of diversion options, coordinate with [facility] and [facility]. Social work has discussed the possibility of diversion with the patient's mother who is his rep payee. 01/23 - Continue current medication regimen - Received confirmation that patient has been accepted at [facility] at discharge (2) Noncompliance with medications: 12/14 -stopped his medications 6 months ago and has decompensated since. Would benefit from a long-acting injectable, and either long-term inpatient treatment at the [facility] or involuntary outpatient treatment.. 12/15 -The patient's psychosis and severely impaired insight seem to be making him and accessible to reason, regarding the essential importance of psychiatric medications. There is a past history of favorable response to haloperidol as well as to clozapine. It is agreed that the patient would in all likelihood benefit from a long-acting injectable antipsychotic medication, given his history of recurrent medication nonadherence. 12/16--currently taking PO for a few doses, is on extended involuntary commitment and clearly ongoing schizophrenia which will fail to improve for him to be able to provide self-care without ongoing treatments on inpatient unit and medications over objection. Without antipsychotic medication he is at significant risk of /serious disability and a danger to himself/others. Dr. Srinivasan could provide second opinion if he refuses PO med. 12/18- Patient refusing to consider LAMA at this time. Will continue to encourage 12/21 -patient continues to refuse Haldol Decanoate, and is now also refusing oral Haldol. We will proceed with medications over objection, as he has a diagnosis of primary thought disorder, has benefited from Haldol Decanoate in the past, he is actively delusional and is refusing medications due to psychotic thought processes, and is at risk of harm to both himself and others if he remains untreated. He has a significant history of violence tied to his delusions, and it will be important to get his symptoms adequately managed to decrease the risk of violence towards others here in the hospital. 12/22 -medication adherence is most certainly going issue with this patient. We are recommending the continued use of Depo forms of antipsychotic medications, but, in the past, the patient has simply refused to return to the office of the healthcare professional who is administering the sectionas was the case last year when, after doing reasonably well, he stopped going for treatment, and stopped excepting medications. For this reason, we are carefully looking for a supportive living setting for this patient, preferably one that has the resources necessary to assist the resistant, not adherent to patient. 12/24 - remains better compliant with PO meds 12/25 - Takes meds when he thinks he needs them, but voiced some question about taking anything regularly after discharge. 12/29 -the patient refused a dose of haloperidol yesterday and received halop eridol 10 mg intramuscularly over objection from disease no holes were required and the patient was cooperative with the injection closed with disease. Afterwards, he wondered out loud why he had refused the medication, knowing that he would get it "one way or the other." Because the patient seemed to have responded well, in terms of his disorganized thinking, to the intramuscular dose of haloperidol, there has been some discussion in the team regarding the question of "cheeking" his oral medications. However, the explanation may be that haloperidol 10 mg IM is more potent than orally. In any event, today the patient commits to continued adherence with his medications as he acknowledges that he does feel that they have been helpful to him. 12/31 -potential signs of non compliance 12/30 and 12/31, consider further titration of haldol deaconate as appropriate to help ensure as full of dose being obtained as possible. maintained plan of haldol IM injections for non compliance of haldol po doses 01/05- Switch Haldol to liquid due to cheeking. 01/06 -second dose of Haldol Decanoate as above. Will taper off of oral Haldol over the next 30-60 days, and ideally maintain him on injectable medication given his history of cheeking and noncompliance with oral medication. He continues to refuse clozapine, could consider the addition of an injectable atypical antipsychotic if Haldol Decanoate is insufficient to control symptoms. 01/09 -taking Haldol liquid, but refusing clozapine. Meeting help with the county to discuss potential diversion options, during which patient was delusion al and demonstrated very poor insight. He continues to state he would not take medications after discharge. 01/12 - Given consistent refusal of scheduled clozapine since its initial administration, will discontinue scheduled dose as well as scheduled blood draws for CBCs 01/20 - haldol now decanoate IM only (3) Substance abuse: 12/14 -patient is not forthcoming, but mother reports he has been abusing alcohol, cough syrup, diphenhydramine, and likely other substances. We will monitor for withdrawal symptoms, and as his psychosis improves, will provide psychoeducation about the risks of substance abuse and recommendations for abstinence. -Avoid controlled substances given high risk of abuse/misuse/negative outcomes. 12/15 -It is recognized that the patient has an extensive history of abusing chemical substances, and it is generally agreed that use of controlled substances does pose significant risk of abuse and other negative outcomes in the long-term. However, the patient's irritability and unwillingness to cooperate with essential medications, such as haloperidol, as well as his history of physical aggression towards others, may be mitigated by the temporary use of a benzodiazepine. Today, a single dose of lorazepam seems to have been effective in helping the patient maintain composure during an involuntary commitment hearing that did not go in his favor, and staff have noticed that he has been somewhat more cooperative today, possibly in response to the dose of lorazepam. Accordingly, staff will continue to offer the patient as needed lorazepam. 12/21 -admission drug screen was positive for benzodiazepines, with significantly elevated temazepam (> 2000) and elevated oxazepam levels. Although he denied taking benzodiazepines prior to admission, he clearly was accessing them somehow. 12/22 -the patient is able to give what may be referred to as "lip service" to the concept of abstinence from drugs of abuse, but he seems to have little or no insight into the risks associated with his abuse of mood altering chemical substances, particularly within the context of his psychiatric illness. Again, a whole will be to identify an aftercare placement that we will be able to monitor him more assiduously for access to abusable chemical substances, including prescription medications, alcohol, and other drugs of abuse. 01/22 -patient has been requesting and receiving Lorazepam 0.5 mg 1-2 times daily. We will decrease this to a maximum of once daily, as it should not be continued outside of the hospital given his substance abuse issues, and it may be contributing to sedation as he spends much of his time in bed. (4) Antisocial personality disorder: 12/14 -extensive, lifelong history provided by adoptive mother which reveals a pervasive pattern of disregard for and violation of the rights of others which started at age 8 or earlier, failure to conform to social norms with respect to lawful behaviors as indicated by repeatedly performing acts that are grounds for arrest, deceitfulness, impulsivity and failure to plan ahead, irritability and aggressiveness, reckless disregard for safety of self and others, consistent irresponsibility, and lack of remorse. 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 -Reviewed expectations with respect to behavior on the unit. 12/15 -The patient's history of antisocial behavior is noted, and antisocial personality will not be a focus of treatment during this hospitalization. However, the record indicates that the patient's antisocial behaviors, which are lifelong, are mitigated to some extent when he is being successfully treated for his psychotic disorder. Accordingly, the approach will be to address his antisocial behaviors by focusing on addressing his psychosis. 12/22 -The patient's long-standing history of antisocial behaviorbehavior which reportedly predates the onset of his symptoms of schizophreniahave not been a focus of treatment and are unlikely to change. Careful monitoring, diversion, containment to the degree possible, to containment of the most appropriate interventions for this problem. 01/11 - Pt made aware again of unit expectations. With evidence of patient stealing keys and causing damage to room items - he remains on a medically necessary private room. His room is to be searched twice daily to ensure any stolen, non-essential, or potentially hazardous items are not being accumulated to the point of causing potential harm. Continue to enforce clear boundaries. 5/6 - Line of sight, high elopement precautions, and MNPR due to attempts to elope and repeatedly stealing and hiding items on the unit. Stole another patient's liquid medication off the med cart in the nurses' station and took 80- 100mg hydroxyzine, hid liquid citalopram in his room. Inventory Assets Strengths: Good physical health. Able to form alliances with certain peers. Concerned and supportive parents. Needs: Continued adherence with psychiatric medications, compliance with outpatient treatment, engagement in treatment, sobriety Risk Factors Assessment Male: Yes : Yes Do You Have Access To A Gun?: No Health Problems: Yes Mental Health Diagnoses: Yes Substance Use Disorders: Yes Previous Attempt: No Previous Psychiatric Hospitalization: Yes Hopelessness: No Smoker: Yes Protective Factors Assessment Tenriism Beliefs: No : No Responsible for Young Children: No Employed: No Stable Relationships: No Supportive Family: Yes Good Rapport with Provider: No Absence of Any Risk Factors Above: No Interval History Identifying Information APRIL GONZALEZ is a 43-year-old M who lives in [place] with his parents, has a history of a psychotic disorder (specific diagnosis not yet known, but history of multiple previous hospitalizations including a 1 year state hospitalization in [place]), and was admitted on 12/14/18 03:41 on a 302 involuntary commitment for psychosis, treatment noncompliance, and erratic, unsafe behavior. He is on a 304 involuntary commitment as of 12/26/2018. Chief Complaint "Good." Review of Systems Notes Constitutional: denied Cardiovascular: denied Respiratory: denied Gastrointestinal: denied Neurological: denied Psychiatric: denies symptoms other than stated above Total of at least 10 systems reviewed, pertinent positives as above and in HPI. Sleep Information Total Hours of Sleep: 7.5 Sleep Comments: pt appeared to sleep 2.75 hrs during evening shift. pt on q-15 minute checks. pt continue with "line of sight" during the night. Meal Information Percent Meal Consumed - Breakfast: 0 Percent Meal Consumed - Lunch: 100 Percent Meal Consumed - Dinner: 100 Nutrition Comment: per meal record Subjective Subjective Patient was seen & assessed and interval progress reviewed with nursing. Staff reports the patient has been informed that he has been accepted to [facility], however this has not been confirmed with the facility retail account representative. Patient was seen today to assess progress since admission. He states that he has been doing well and denies any concerns today. Patient has been observed to be more active on the unit in the last several days groups sitting in the day area, and engaging with peers. Patient states he does not have any anxiety related to discharge the boarding home week. Patient states he feels that he is ready for this change. Patient denies any suicidal thoughts. He does verbalize to this provider ongoing auditory 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 which he describes as "a voice in my right ear, talking in metaphors." The patient states that these 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 are not distressing to him, and do not cause him to feel unsafe when they are experienced. Patient denies any other needs or concerns from this provider at this time. Physical Exam Psychiatric Orientation: alert, oriented x 3 and cooperative Apperance: appropriately dressed and appropriately groomed Eye Contact: good eye contact Motor Behavior: no abnormal motor movements (Observed while laying in bed) Speech: normal rate/rhythm/volume of speech Affect: + blunted affect (Not overtly depressed or anxious, affect appearing mildly brigher) Mood: no depressed mood and no anxious mood "Good" Thought Process: goal directed thought process and clear/coherent thought process Thought Content: reality based without delusions (No verbalization of delusions) Suicidal Thoughts: denies suicidal thoughts Homicidal Thoughts: denies homicidal thoughts Hallucinations: + auditory 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 (Reports hearing a "voice in my right ear") Cognition: recent memory grossly intact, remote memory grossly intact, attention grossly intact and language grossly intact Estimated Intelligence: consistent with education level Insight: + impaired insight (Though not entirely related to his psychiatric condition) Judgement: + impaired judgement (Though not entirely related to his psychiatric condition) Vital Signs (Past 24 Hours) Last Vital Signs Temp 36.4 C L 01/19/19 06:00 Pulse 96 H 01/19/19 06:00 Resp 18 01/19/19 06:00 BP 105/63 01/19/19 06:00 Pulse Ox 97 12/14/18 03:38 Results & Data Current Inpatient Medications Current Inpatient Medications: Current Inpatient Medications Acetaminophen (Tylenol) 650 mg PO Q4H PRN PRN Reason: Headache or Minor Fever Stop: 02/09/19 08:29 Last Admin: 01/23/19 10:31 Dose: 650 mg Documented by: Al Hydrox/Mg Hydrox/Simethicone (Maalox) 30 ml PO Q4H PRN PRN Reason: GI Upset Stop: 02/09/19 08:29 Benztropine Mesylate (Cogentin) 1 mg PO BID PRN PRN Reason: akathisia Stop: 02/09/19 08:29 Last Admin: 01/21/19 09:43 Dose: 1 mg Documented by: Bismuth Subsalicylate (Kaopectate) 15 ml PO PRN PRN PRN Reason: Loose Stool Stop: 02/09/19 08:29 Docusate Sodium (Colace) 100 mg PO HS PRN PRN Reason: constipation Stop: 02/09/19 08:29 Haloperidol Decanoate (Haldol Decanoate) 300 mg IM ONE ONE Stop: 02/16/19 15:08 Haloperidol Lactate (Haldol Lactate) 10 mg PO Q4H PRN PRN Reason: Psychosis or agitation Stop: 02/09/19 08:29 Haloperidol Lactate (Haldol) 10 mg IM Q4 PRN PRN Reason: psychosis or agitation Stop: 02/09/19 08:29 Lorazepam (Ativan) 0.5 mg PO DAILY PRN PRN Reason: Agitation Stop: 02/08/19 08:34 Last Admin: 01/23/19 10:31 Dose: 0.5 mg Documented by: Magnesium Hydroxide (Milk Of Magnesia) 30 ml PO DAILY PRN PRN Reason: Heartburn Stop: 02/09/19 08:29 Menthol (Nice) 1 be BUCCAL Q2H PRN PRN Reason: Sore Throat Stop: 02/09/19 08:29 Miscellaneous (Remove Nicoderm Patch) 1 ea N/A DAILY@2100 [facility] Stop: 02/09/19 20:59 Last Admin: 01/22/19 20:34 Dose: Not Given Documented by: Nicotine (Nicoderm Cq) 21 mg TD QAM KELLY Stop: 02/09/19 08:59 Last Admin: 01/23/19 10:00 Dose: Not Given Documented by: Nicotine Polacrilex (Nicorette 2mg) 1 piece MT UD PRN PRN Reason: Nicotine Withdrawal Stop: 02/09/19 08:34 Last Admin: 01/19/19 15:51 Dose: 1 piece Documented by: Sodium Chloride ([place] Nasal) 1 - 2 sprays NA PRN PRN PRN Reason: Nasal Dryness/Congestion Stop: 02/09/19 08:34 Post Discharge Appointments Primary Care Physician Name Of Family Doctor: Denies Psychiatrist Name of Psychiatrist: JANET Ramírez for the assessment (Important! Next injection due 02/16) Psychiatrist's Date of Appointment with Psychiatrist: 01/30/19 Time of Appointment with Psychiatrist: 9:00 a.m. Psychiatric Appointment Comment: [address] [place] [address] Therapist Name of Therapist: Juan Antonioies Construction Controller Name of Construction Controller: [employer] [facility] [employer] Phone Number for Construction Controller: [phone] Case Management Appointment Comment: [address] [facility], [address], [place], [place] CPT Code CPT Code 94160 (1) Schizophrenia Schizophrenia type: paranoid schizophrenia Qualified Code(s): F20.0 - Par anoid schizophrenia
[2019-01-24] MEDS: NICOTINE 21 MG/24 HR TDSY TD SCH (09:51)
--- NOTE | 2019-01-24 13:24 | Psychiatric Progress Note ---
Date of Service January 24, 2019 Impression / Recommendations Impression Continuing at this time with diversionary plan for discharge to [facility]. Trajectory is for discharge on 01/29/2019 if we are able to convert 304 inpatient commitment to a 304 outpatient commitment. No additional information was received regarding referral to [facility], therefore have pursued diversion plans. It is highly unlikely that an inpatient psychiatric admission would be able to mitigate further risks of antisocial behavior, making patient at higher risk of harm to self or others when compared to the general population. There are multiple concerns with patient being discharged without an active 304 outpatient commitment, given his history of medication noncompliance. There is also concern about discharging the patient to a situation where he will not be supervised in some capacity, requiring extra time to coordinate appropriate discharge plans. We have completed medication adjustments to target psychiatric symptoms, which are continuing but reported to be less distressing for the patient. We will attempt to continue to target other risk factors during the remainder of his stay. (1) Schizophrenia: 12/14 -patient is a poor historian, but mother provides historical information. 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 For now we will collect p sychosis not otherwise specified. -Patient is refusing to sign releases for previous outpatient providers in [place], and staff contacted them but they refused to provide any information without a signed release. -Medically necessary private room due to psychosis, erratic and disorganized behavior, history of violence, and aggressive behavior and threats to harm others here in the hospital. -Start haloperidol 5 mg twice daily, as patient has a previous good response to Haldol Decanoate and clozapine. Recommend medications over objection once he is on a 303 involuntary commitment and has been seen by a second physician, as he has severe psychotic symptoms which are preventing him from accurately interpreting reality, influencing his behavior, and placing him at risk of harm to both himself and others as he has been acting on his delusions, experiencing auditory and visual 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, paranoia, engaging in unsafe behaviors including driving when he does not have a license or the knowledge to do so, abusing substances, and has been threatening towards others. He demonstrates no insight into his condition, but available information indicates response to treatment with antipsychotic medications in the past. -Medically necessary private room due to psychosis, aggressive behavior, and threats to harm others. -We will need to check fasting lipid profile and glucose once he is cooperative. -Excused from groups from the time being until able to participate appropriately. -Refusing to sign releases for parents, but mother is petitioner, so can inform her of the 303 hearing. 12/15 -The patient did accept a single dose of lorazepam this morning, and did seem to be somewhat more calm. He was mildly labile during his involuntary commitment hearing this morning, but managed to maintain control and was not aggressive during the hearing or upon learning that he had been retained by the chief nursing officer. Accordingly, we will continue to offer him lorazepam, since this medication in his case does not seem to be disinhibiting and, at least today, appeared to have helped him manage angry impulses during his involuntary commitment hearing. -The treatment team and I agree that, if possible, we would like to convince the patient to voluntarily take oral medications. Reports are that this morning he came close to taking oral haloperidol, but at the last minute declined. He is telling us that he will consistently refused medications, but our hope is that as we are able to gain his trust he will become more cooperative. We will continue to try to convince the patient to take oral haloperidol, but if this is unsuccessful we will seek two physician approval of medication over objection and give Haldol 5 mg IM BID. 12/16--tolerating Haldol, titrate to 10 mg BID. 12/18 - Continue haldol 10 mg bid - Continue discussion about LAMA - Encourage better sleep hygiene, staying awake in the day to promote sleep at night. 12/19 - Patient allowed labs to be drawn. FBS 93, FLP WNL with the exception of triglycerides of 186. Counseled to avoid fatty red meats, saturated fats. 12/20 -Again discussed the recommendations for long-acting injectable antipsychotic medication with the patient, which he initially declined because he said medications are poison. He has a meeting with his family this afternoon, and I will order the first loading dose of Haldol Decanoate 50 mg IM to be administered this afternoon, and if he is unwilling to take it, we will likely need to proceed with medications over objection tomorrow. We will try to encourage him to accept the intervention, as he reportedly did fairly well on this medication in the past. 12/21 -proceed with medications over objection: Haldol Decanoate 100 mg IM today, and Haldol 10 mg IM for refusal of oral Haldol. He will need 100-200 mg of Haldol Decanoate every 4 weeks based on his current oral dose, so will continue oral haloperidol for now until we can monitor response to the decanoate. 12/22 -the patient received Haldol Decanoate intramuscularly today, as a medication over objection. He tolerated the injection well, and today tells me that he "feels pretty good." -Today, the patient's associations seemed to be fairly tight on examination. He tends to be somewhat concrete in his thinking, but, as above, he did seem able to understand our rationale for continuing inpatient treatment at this point. 12/23 - tolerating halol dec w/o EPS or other complaints. will need to consider reduction of oral dose in approx 1 week. 12/24 - pt remains less acutely behaviorally disturbed since Haldol dec injection last however evidenced mild acting out when physically uncomfortable today - will add standing docusate 100mg po qhs and encourage oral hydration today for complaint of hard stool - meeting w/ [facility] services tomorrow to explore dispo options 12/25 - Increase in irritability - Planning meeting held with [facility]: possibility for CRR vs state hospital - Continue current meds and encourage prns 12/26 - 304 granted. Meeting with [facility], patient and parents held yesterday: parents confirmed he cannot return home. Treatment team and [facility] recommends state hospitalization, as patient not appropriate for CRR placement due to severity of symptoms and unwillingness for outpatient treatment and medications. 12/27 - Continue current medication regimen - Orders placed for necessary EKG, TB skin test to accompany [facility] referral - Place on high elopement precautions last evening due to suspicious loitering at the entryway of the unit - Reviewed records from [facility] - previous diagnoses were schizoaffective disorder and substance abuse 12/28 - Continue current medication regimen - EKG and PPD completed yesterday - PPD will need read on 12/30 12/29 -Add clozapine 12.5 mg BID and increase as tolerated by 25 mg per day to a dose of 300 mg daily (in two divided dosages, or all at bedtime).' 12/30 -titrating clozapine to 12.5 am and 25mg hs for 12/30 with plan to increase to 25mg bid on 12/31 and likely further titration if tolerating -maintained Haldol decanoate and Haldol po unchanged for now, with consideration of weaning Haldol po dose if clozapine is effective ,, although pt appears to have history of both Haldol forms being rx'd while on past clozapine med trial. Pt has been observed by staff to be improving as obtaining medication of haldol (including the immediate IM doses) 12/31 close monitoring for checking, continue plan above for IM Haldol over objection if checking haldol scheduled doses. Maintain clozapine dosing plan for now with potential re-considering clozapine plan if compklaince issues are occuring. Consider further titration of haldol decanoate as appropaite. 01/01 - Patient refusing Clozaril. Will leave in place, but not force meds over objection for refusal - Increase Haldol to 10 mg AM and 15 mg HS, with meds over objection for refusal - Continue MNPR due to irritability and hx of violence 01/02 -continue oral haloperidol 10 mg every morning and 15 mg at bedtime (moved to later time to try to minimize sedation/spending excessive time in bed during the day), and Haldol decanoate, next injection due 01/19/2019. Continue Lorazepam as needed. -He continues to refuse clozapine. 01/03 - Continue current meds and plan - Continue MNPR in deference to history of violence toward others. 01/04 - Continue current meds and plan - Meeting scheduled with the [facility] to discuss disposition 01/05 - Change pills to liquid due to cheeking - Encourage patient to be out of bed and participating in his treatment - Planning meeting scheduled with the [facility] for next Saturday 01/06 -Patient agrees to a second Haldol Decanoate injection, 100 mg, with the hopes that we can taper him off oral haloperidol given his poor compliance. He has been on 25 mg p.o. daily, which is the equivalent of an initial dose of 500 mg decanoate (per UpToDate, dose of oral haloperidol > 10 mg and high risk of relapse, initiate dose at 20 times the daily oral dose). He got his initial Haldol Decanoate 100 mg on 12/22/2018. He will be due for his next injection on 01/19/2019, currently ordered for 200 mg, but may need to consider a higher dose given noncompliance with oral medication. Maintenance doses are typically 50- 200 mg. Will continue oral haloperidol liquid 10 mg every morning, but discontinue the 15 mg at bedtime dose. Oral haloperidol can be tapered over the period of the first 3 decanoate shots (60-90 days) depending on response. -Continue clozapine but decrease to 25 mg daily, as he has not been taking it, and continue to encourage him to try it, as it was reportedly beneficial in the past and stabilized him sufficiently to be discharged from the [facility]. -Continue as needed medications (Lorazepam, benztropine, haloperidol, and hydroxyzine). 01/07 -continue current medications and plan. 01/08 - Continue current meds and plan - Diversion meeting with the [facility] scheduled for tomorrow. 01/09 -continue private room given antisocial behavior/stealing. Meeting held with the [facility], who do not feel he is appropriate for CRR placement and support state hospitalization. We have not yet received acceptance from [facility]. 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 01/10 -continue current plan. Coordinate with the [facility]. 01/11 - Continue current plan, awaiting acceptance and bed date from the [facility] - Although this is preferred plan, will need to arrange alternative options for appropriate discharge should bed date surpass ongoing criteria for inpatient admission 5 - Continue haloperidol 10mg qAM with scheduled injections of haloperidol decanoate - Given significant period of refusing scheduled clozapine - will cancel the medication and scheduled CBC blood draws - Awaiting acceptance to the [facility] and projected bed date - Continuing to work with [facility] resources should alternative arrangements be needed 01/15 - Continue current medication and treatment plan - On line of sight, MNPR, and high elopement precautions due to ongoing antisocial behaviors 01/16 - Continue current medication and treatment plan - Consider alternative housing options, boarding home or personal detention to be explored 01/17 -continue current medications and plan. 01/19 - Continue current medication regimen - Meeting with appeals representative from [facility] today to explore alternative discharge plans] 01/20 haldol liquid po doses stopped, decanote dosing 300mg IM every 4 weeks, next due 02/16/1901/21 -maintained treatment plan unchanged 01/22 -continue exploration of diversion options, [facility] with [facility]. Social work has discussed the possibility of diversion with the patient's mother who is his rep payee. 01/23 - Continue current medication regimen - Received confirmation that patient has been accepted at [facility] at discharge 01/24 - Continue current treatment plan unchanged (2) Noncompliance with medications: 12/14 -stopped his medications 6 months ago and has decompensated since. Would benefit from a long-acting injectable, and either long-term inpatient treatment at the [facility] or involuntary outpatient treatment.. 12/15 -The patient's psychosis and severely impaired insight seem to be making him and accessible to reason, regarding the essential importance of psychiatric medications. There is a past history of favorable response to haloperidol as well as to clozapine. It is agreed that the patient would in all likelihood benefit from a long-acting injectable antipsychotic medication, given his history of recurrent medication nonadherence. 12/16--currently taking PO for a few doses, is on extended involuntary commitment and clearly ongoing schizophrenia which will fail to improve for him to be able to provide self-care without ongoing treatments on inpatient unit and medications over objection. Without antipsychotic medication he is at significant risk of /serious disability and a danger to himself/others. Dr. Srinivasan could provide second opinion if he refuses PO med. 12/18- Patient refusing to consider LAMA at this time. Will continue to encourage 12/21 -patient continues to refuse Haldol Decanoate, and is now also refusing oral Haldol. We will proceed with medications over objection, as he has a diagnosis of primary thought disorder, has benefited from Haldol Decanoate in the past, he is actively delusional and is refusing medications due to psychotic thought processes, and is at risk of harm to both himself and others if he remains untreated. He has a significant history of violence tied to his delusions, and it will be important to get his symptoms adequately managed to decrease the risk of violence towards others here in the hospital. 12/22 -medication adherence is most certainly going issue with this patient. We are recommending the continued use of Depo forms of antipsychotic medications, but, in the past, the patient has simply refused to return to the office of the healthcare professional who is administering the sectionas was the case last y ear when, after doing reasonably well, he stopped going for treatment, and stopped excepting medications. For this reason, we are carefully looking for a supportive living setting for this patient, preferably one that has the resources necessary to assist the resistant, not adherent to patient. 12/24 - remains better compliant with PO meds 12/25 - Takes meds when he thinks he needs them, but voiced some question about taking anything regularly after discharge. 12/29 -the patient refused a dose of haloperidol yesterday and received haloperidol 10 mg intramuscularly over objection from disease no holes were required and the patient was cooperative with the injection closed with disease. Afterwards, he wondered out loud why he had refused the medication, knowing that he would get it "one way or the other." Because the patient seemed to have responded well, in terms of his disorganized thinking, to the intramuscular dose of haloperidol, there has been some discussion in the team regarding the question of "cheeking" his oral medications. However, the explanation may be that haloperidol 10 mg IM is more potent than orally. In any event, today the patient commits to continued adherence with his medications as he acknowledges that he does feel that they have been helpful to him. 12/31 -potential signs of non compliance 12/30 and 12/31, consider further titration of haldol deaconate as appropriate to help ensure as full of dose being obtained as possible. maintained plan of haldol IM injections for non compliance of haldol po doses 01/05- Switch Haldol to liquid due to cheeking. 01/06 -second dose of Haldol Decanoate as above. Will taper off of oral Haldol over the next 30-60 days, and ideally maintain him on injectable medication given his history of cheeking and noncompliance with oral medication. He continues to refuse clozapine, could consider the addition of an injectable atypical antipsychotic if Haldol Decanoate is insufficient to control symptoms. 01/09 -taking Haldol liquid, but refusing clozapine. Meeting help with the county to discuss potential diversion options, during which patient was delusional and demonstrated very poor insight. He continues to state he would not take medications after discharge. 01/12 - Given consistent refusal of scheduled clozapine since its initial administration, will discontinue scheduled dose as well as scheduled blood draws for CBCs 01/20 - haldol now decanoate IM only (3) Substance abuse: 12/14 -patient is not forthcoming, but mother reports he has been abusing alcohol, cough syrup, diphenhydramine, and likely other substances. We will monitor for withdrawal symptoms, and as his psychosis improves, will provide psychoeducation about the risks of substance abuse and recommendations for abstinence. -Avoid controlled substances given high risk of abuse/misuse/negative outcomes. 12/15 -It is recognized that the patient has an extensive history of abusing chemical substances, and it is generally agreed that use of controlled substances does pose significant risk of abuse and other negative outcomes in the long-term. However, the patient's irritability and unwillingness to cooperate with essential medications, such as haloperidol, as well as his history of physical aggression towards others, may be mitigated by the temporary use of a benzodiazepine. Today, a single dose of lorazepam seems to have been effective in helping the patient maintain composure during an involuntary commitment hearing that did not go in his favor, and staff have noticed that he has been somewhat more cooperative today, possibly in response to the dose of lorazepam. Accordingly, staff will continue to offer the patient as needed lorazepam. 12/21 -admission drug screen was positive for benzodiazepines, with significantly elevated temazepam (> 2000) and elevated oxazepam levels. Although he denied taking benzodiazepines prior to admission, he clearly was accessing them s omehow. 12/22 -the patient is able to give what may be referred to as "lip service" to the concept of abstinence from drugs of abuse, but he seems to have little or no insight into the risks associated with his abuse of mood altering chemical substances, particularly within the context of his psychiatric illness. Again, a whole will be to identify an aftercare placement that we will be able to mo nitor him more assiduously for access to abusable chemical substances, including prescription medications, alcohol, and other drugs of abuse. 01/22 -patient has been requesting and receiving Lorazepam 0.5 mg 1-2 times daily. We will decrease this to a maximum of once daily, as it should not be continued outside of the hospital given his substance abuse issues, and it may be contributing to sedation as he spends much of his time in bed. (4) Antisocial personality disorder: 12/14 -extensive, lifelong history provided by adoptive mother which reveals a pervasive pattern of disregard for and violation of the rights of others which started at age 8 or earlier, failure to conform to social norms with respect to lawful behaviors as indicated by repeatedly performing acts that are grounds for arrest, deceitfulness, impulsivity and failure to plan ahead, irritability and aggressiveness, reckless disregard for safety of self and others, consistent irresponsibility, and lack of remorse. 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 -Reviewed expectations with respect to behavior on the unit. 12/15 -The patient's history of antisocial behavior is noted, and antisocial personality will not be a focus of treatment during this hospitalization. However, the record indicates that the patient's antisocial behaviors, which are lifelong, are mitigated to some extent when he is being successfully treated for his psychotic disorder. Accordingly, the approach will be to address his antisocial behaviors by focusing on addressing his psychosis. 12/22 -The patient's long-standing history of antisocial behaviorbehavior which reportedly predates the onset of his symptoms of schizophreniahave not been a focus of treatment and are unlikely to change. Careful monitoring, diversion, containment to the degree possible, to containment of the most appropriate interventions for this problem. 01/11 - Pt made aware again of unit expectations. With evidence of patient stealing keys and causing damage to room items - he remains on a medically necessary private room. His room is to be searched twice daily to ensure any stolen, non-essential, or potentially hazardous items are not being accumulated to the point of causing potential harm. Continue to enforce clear boundaries. 56 - Line of sight, high elopement precautions, and MNPR due to attempts to elope and repeatedly stealing and hiding items on the unit. Stole another patient's liquid medication off the med cart in the nurses' station and took 80- 100mg hydroxyzine, hid liquid citalopram in his room. Inventory Assets Strengths: Good physical health. Able to form alliances with certain peers. Concerned and supportive parents. Needs: Continued adherence with psychiatric medications, compliance with outpatient treatment, engagement in treatment, sobriety Risk Factors Assessment Male: Yes : Yes Do You Have Access To A Gun?: No Health Problems: Yes Mental Health Diagnoses: Yes Substance Use Disorders: Yes Previous Attempt: No Previous Psychiatric Hospitalization: Yes Hopelessness: No Smoker: Yes Protective Factors Assessment Roman [employer] Beliefs: No : No Responsible for Young Children: No Employed: No Stable Relationships: No Supportive Family: Yes Good Rapport with Provider: No Absence of Any Risk Factors Above: No Interval History Identifying Information APRIL GONZALEZ is a 43-year-old M who lives in [place] with his parents, has a history of a psychotic disorder (specific diagnosis not yet known, but history of multiple previous hospitalizations including a 1 year state hospitalization in [place]), and was admitted on 12/14/18 03:41 on a 302 involuntary commitment for psychosis, treatment noncompliance, and erratic, unsafe behavior. He is on a 304 involuntary commitment as of 12/26/2018. Chief Complaint "Good. I am fine." Review of Systems Notes Constitutional: denied Cardiovascular: denied Respiratory: denied Gastrointestinal: denied Neurological: denied Psychiatric: denies symptoms other than stated above Total of at least 10 systems reviewed, pertinent positives as above and in HPI. Sleep Information Total Hours of Sleep: 6.5 Sleep Comments: pt appeared to sleep 2.75 hrs during evening shift. pt on q-15 minute checks. pt continue with "line of sight" during the night. Meal Information Percent Meal Consumed - Breakfast: 0 Percent Meal Consumed - Lunch: 100 Percent Meal Consumed - Dinner: 100 Nutrition Comment: per meal record Subjective Subjective Patient was seen & assessed and interval progress reviewed with Treatment Team. Staff reports that the patient has been more interactive on the unit, attending groups more frequently in the last few days. Patient was agreeable to meeting to set up case management, and was appropriate during the session. Patient was seen today to assess progress since admission. Patient states that he is doing well today and denies any new concerns. He states he is still hopeful for discharge to [facility] and denies any concerns with these arrangements. Patient states he is agreeable to working with his assigned correctional counselor/case manager should he require any additional outpatient services. We further discuss patient's reports of "hearing voices in my right ear." Patient states there was a period of time in which the voices were distressing, telling him to harm himself or others. He states for the last several months the voices have persisted; however are less prominent, and no longer distressing. Patient states "they are there, but only when I am listening for them." Patient denies any suicidality today, and denies any other questions or concerns. Physical Exam Psychiatric Orientation: alert, oriented x 3 and cooperative Apperance: appropriately dressed and appropriately groomed Eye Contact: good eye contact Motor Behavior: steady gait and station and no abnormal motor movements Speech: normal rate/rhythm/volume of speech; no pressured speech Affect: + blunted affect (More interactive, mildly brighter -but remaining somewhat blunted in affect) and + constricted affect Mood: no depressed mood and no anxious mood "Good. I'm fine." Thought Process: goal directed thought process, clear/coherent thought process and + concrete thought process Thought Content: reality based without delusions (No verbalized delusional thought content today) Suicidal Thoughts: denies suicidal thoughts Homicidal Thoughts: denies homicidal thoughts Hallucinations: + auditory 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 (ongoing "voices in my right ear" - not particularly distressing); no visual 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 Cognition: recent memory grossly intact, remote memory grossly intact, attention grossly intact and language grossly intact Estimated Intelligence: average estimated intelligence and consistent with education level Insight: + impaired insight (Though not entirely related to his psychiatric con dition) Judgement: + impaired judgement (Though not entirely related to his psychiatric condition) Vital Signs (Past 24 Hours) Last Vital Signs Temp 36.7 C 01/24/19 10:54 Pulse 85 01/24/19 10:54 Resp 16 01/24/19 10:54 BP 127/77 01/24/19 10:54 Pulse Ox 97 12/14/18 03:38 Results & Data Current Inpatient Medications Current Inpatient Medications: Current Inpatient Medications Acetaminophen (Tylenol) 650 mg PO Q4H PRN PRN Reason: Headache or Minor Fever Stop: 02/09/19 08:29 Last Admin: 01/23/19 18:38 Dose: 650 mg Documented by: Al Hydrox/Mg Hydrox/Simethicone (Maalox) 30 ml PO Q4H PRN PRN Reason: GI Upset Stop: 02/09/19 08:29 Benztropine Mesylate (Cogentin) 1 mg PO BID PRN PRN Reason: akathisia Stop: 02/09/19 08:29 Last Admin: 01/21/19 09:43 Dose: 1 mg Documented by: Bismuth Subsalicylate (Kaopectate) 15 ml PO PRN PRN PRN Reason: Loose Stool Stop: 02/09/19 08:29 Docusate Sodium (Colace) 100 mg PO HS PRN PRN Reason: constipation Stop: 02/09/19 08:29 Haloperidol Decanoate (Haldol Decanoate) 300 mg IM ONE ONE Stop: 02/16/19 15:08 Haloperidol Lactate (Haldol Lactate) 10 mg PO Q4H PRN PRN Reason: Psychosis or agitation Stop: 02/09/19 08:29 Haloperidol Lactate (Haldol) 10 mg IM Q4 PRN PRN Reason: psychosis or agitation Stop: 02/09/19 08:29 Lorazepam (Ativan) 0.5 mg PO DAILY PRN PRN Reason: Agitation Stop: 02/08/19 08:34 Last Admin: 01/23/19 10:31 Dose: 0.5 mg Documented by: Magnesium Hydroxide (Milk Of Magnesia) 30 ml PO DAILY PRN PRN Reason: Heartburn Stop: 02/09/19 08:29 Menthol (Nice) 1 be BUCCAL Q2H PRN PRN Reason: Sore Throat Stop: 02/09/19 08:29 Miscellaneous (Remove Nicoderm Patch) 1 ea N/A DAILY@2100 [facility] Stop: 02/09/19 20:59 Last Admin: 01/23/19 20:54 Dose: Not Given Documented by: Nicotine (Nicoderm Cq) 21 mg TD QAM [facility] Stop: 02/09/19 08:59 Last Admin: 01/24/19 09:51 Dose: Not Given Documented by: Nicotine Polacrilex (Nicorette 2mg) 1 piece MT UD PRN PRN Reason: Nicotine Withdrawal Stop: 02/09/19 08:34 Last Admin: 01/19/19 15:51 Dose: 1 piece Documented by: Sodium Chloride ([place] Nasal) 1 - 2 sprays NA PRN PRN PRN Reason: Nasal Dryness/Congestion Stop: 02/09/19 08:34 Post Discharge Appointments Primary Care Physician Name Of Family Doctor: Denies Psychiatrist Name of Psychiatrist: [facility] Anuradha Ramírez for the assessment (Important! Next injection due 02/16) Psychiatrist's Date of Appointment with Psychiatrist: 01/30/19 Time of Appointment with Psychiatrist: 9:00 a.m. Psychiatric Appointment Comment: [address] [place] [address] Therapist Name of Therapist: Denies Marketing Strategy Manager Name of Marketing Strategy Manager: [facility] Phone Number for Marketing Strategy Manager: [phone] Case Management Appointment Comment: [address], [address], [place], [place] CPT Code CPT Code 59389 (1) Schizophrenia Schizophrenia type: paranoid schizophrenia Qualified Code(s): F20.0 - Paranoid schizophrenia
[2019-01-24] MEDS: LORazepam 0.5 MG TAB PO PRN (17:53)
[2019-01-24] MEDS: ACETAMINOPHEN 325 MG TAB PO PRN (17:53)
[2019-01-24] MEDS: NICOTINE POLACRILEX 2 MG GUM MT PRN (17:57)
[2019-01-25] MEDS: NICOTINE 21 MG/24 HR TDSY TD SCH (08:48)
--- NOTE | 2019-01-25 13:01 | Psychiatric Progress Note ---
Date of Service January 25, 2019 Impression / Recommendations Impression No reported change in patient's presentation. Continuing at this time with diversionary plan for discharge to [facility]. Trajectory is for discharge on 01/29/2019 if we are able to convert 304 inpatient commitment to a 304 outpatient commitment. No additional information was received regarding referral to [facility], therefore have pursued diversion plans. It is highly unlikely that an inpatient psychiatric admission would be able to mitigate further risks of antisocial behaviors, which innately cause patient to be at higher risk of harm to self or others when compared to the [facility]. There are multiple concerns with patient being discharged without an active 304 outpatient commitment, given his history of medication noncompliance. There is also concern about discharging the patient to a situation where he will not be supervised in some capacity, requiring extra time to coordinate appropriate discharge plans. We have completed medication adjustments to target psychiatric symptoms, which are continuing but reported to be less distressing for the patient. We will attempt to continue to target other risk factors during the remainder of his stay. (1) Schizophrenia: 12/14 -patient is a poor historian, but mother provides historical information. 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 For now we will collect psychosis not otherwise specified. -Patient is refusing to sign releases for previous outpatient providers in [place], and staff contacted them but they refused to provide any information without a signed release. -Medically necessary private room due to psychosis, erratic and disorganized behavior, history of violence, and aggressive behavior and threats to harm others here in the hospital. -Start haloperidol 5 mg twice daily, as patient has a previous good response to Haldol Decanoate and clozapine. Recommend medications over objection once he is on a 303 involuntary commitment and has been seen by a second physician, as he has severe psychotic symptoms which are preventing him from accurately interpreting reality, influencing his behavior, and placing him at risk of harm to both himself and others as he has been acting on his delusions, experiencing auditory and visual 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, paranoia, engaging in unsafe behaviors including driving when he does not have a license or the knowledge to do so, abusing substances, and has been threatening towards others. He demonstrates no insight into his condition, but available information indicates response to treatment with antipsychotic medications in the past. -Medically necessary private room due to psychosis, aggressive behavior, and threats to harm others. -We will need to check fasting lipid profile and glucose once he is cooperative. -Excused from groups from the time being until able to participate appropriately. -Refusing to sign releases for parents, but mother is petitioner, so can inform her of the 303 hearing. 12/15 -The patient did accept a single dose of lorazepam this morning, and did seem to be somewhat more calm. He was mildly labile during his involuntary commitment hearing this morning, but managed to maintain control and was not aggressive during the hearing or upon learning that he had been retained by the retail loss prevention officer. Accordingly, we will continue to offer him lorazepam, since this medication in his case does not seem to be disinhibiting and, at least today, appeared to have helped him manage angry impulses during his involuntary commitment hearing. -The treatment team and I agree that, if possible, we would like to convince the patient to voluntarily take oral medications. Reports are that this morning he came close to taking oral haloperidol, but at the last minute declined. He is telling us that he will consistently refused medications, but our hope is that as we are able to gain his trust he will become more cooperative. We will continue to try to convince the patient to take oral haloperidol, but if this is unsuccessful we will seek two physician approval of medication over objection and give Haldol 5 mg IM BID. 12/16--tolerating Haldol, titrate to 10 mg BID. 12/18 - Continue haldol 10 mg bid - Continue discussion about LAMA - Encourage better sleep hygiene, staying awake in the day to promote sleep at night. 12/19 - Patient allowed labs to be drawn. FBS 93, FLP WNL with the exception of triglycerides of 186. Counseled to avoid fatty red meats, saturated fats. 12/20 -Again discussed the recommendations for long-acting injectable antipsychotic medication with the patient, which he initially declined because he said medications are poison. He has a meeting with his family this afternoon, and I will order the first loading dose of Haldol Decanoate 50 mg IM to be administered this afternoon, and if he is unwilling to take it, we will likely need to proceed with medications over objection tomorrow. We will try to encourage him to accept the intervention, as he reportedly did fairly well on this medication in the past. 12/21 -proceed with medications over objection: Haldol Decanoate 100 mg IM today, and Haldol 10 mg IM for refusal of oral Haldol. He will need 100-200 mg of Haldol Decanoate every 4 weeks based on his current oral dose, so will continue oral haloperidol for now until we can monitor response to the decanoate. 12/22 -the patient received Haldol Decanoate intramuscularly today, as a medication over objection. He tolerated the injection well, and today tells me that he "feels pretty good." -Today, the patient's associations seemed to be fairly tight on examination. He tends to be somewhat concrete in his thinking, but, as above, he did seem able to understand our rationale for continuing inpatient treatment at this point. 12/23 - tolerating halol dec w/o EPS or other complaints. will need to consider reduction of oral dose in approx 1 week. 12/24 - pt remains less acutely behaviorally disturbed since Haldol dec injection last however evidenced mild acting out when physically uncomfortable today - will add standing docusate 100mg po qhs and encourage oral hydration today for complaint of hard stool - meeting w/ [facility] services tomorrow to explore dispo options 12/25 - Increase in irritability - Planning meeting held with [facility]: possibility for CRR vs state hospital - Continue current meds and encourage prns 12/26 - 304 granted. Meeting with [facility], patient and parents held yesterday: parents confirmed he cannot return home. Treatment team and [facility] recommends state hospitalization, as patient not appropriate for CRR placement due to severity of symptoms and unwillingness for outpatient treatment and medications. 12/27 - Continue current medication regimen - Orders placed for necessary EKG, TB skin test to accompany [facility] referral - Place on high elopement precautions last evening due to suspicious loitering at the entryway of the unit - [facility] - previous diagnoses were schizoaffective disorder and substance abuse 12/28 - Continue current medication regimen - EKG and PPD completed yesterday - PPD will need read on 12/30 12/29 -Add clozapine 12.5 mg BID and increase as tolerated by 25 mg per day to a dose of 300 mg daily (in two divided dosages, or all at bedtime).' 12/30 -titrating clozapine to 12.5 am and 25mg hs for 12/30 with plan to increase to 25mg bid on 12/31 and likely further titration if tolerating -maintained Haldol decanoate and Haldol po unchanged for now, with consideration of weaning Haldol po dose if clozapine is effective ,, although pt appears to have history of both Haldol forms being rx'd while on past clozapine med trial. Pt has been observed by staff to be improving as obtaining medication of haldol (including the immediate IM doses) 12/31 close monitoring for checking, continue plan above for IM Haldol over objection if checking haldol scheduled doses. Maintain clozapine dosing plan for now with potential re-considering clozapine plan if compklaince issues are occuring. Consider further titration of haldol decanoate as appropaite. 01/01 - Patient refusing Clozaril. Will leave in place, but not force meds over objection for refusal - Increase Haldol to 10 mg AM and 15 mg HS, with meds over objection for refusal - Continue MNPR due to irritability and hx of violence 01/02 -continue oral haloperidol 10 mg every morning and 15 mg at bedtime (moved to later time to try to minimize sedation/spending excessive time in bed during the day), and Haldol decanoate, next injection due 01/19/2019. Continue Lorazepam as needed. -He continues to refuse clozapine. 01/03 - Continue current meds and plan - Continue MNPR in deference to history of violence toward others. 01/04 - Continue current meds and plan - Meeting scheduled with the [facility] to discuss disposition 01/05 - Change pills to liquid due to cheeking - Encourage patient to be out of bed and participating in his treatment - Planning meeting scheduled with the [facility] for next Saturday 01/06 -Patient agrees to a second Haldol Decanoate injection, 100 mg, with the hopes that we can taper him off oral haloperidol given his poor compliance. He has been on 25 mg p.o. daily, which is the equivalent of an initial dose of 500 mg decanoate (per UpToDate, dose of oral haloperidol > 10 mg and high risk of relapse, initiate dose at 20 times the daily oral dose). He got his initial Haldol Decanoate 100 mg on 12/22/2018. He will be due for his next injection on 01/19/2019, currently ordered for 200 mg, but may need to consider a higher dose given noncompliance with oral medication. Maintenance doses are typically 50- 200 mg. Will continue oral haloperidol liquid 10 mg every morning, but discontinue the 15 mg at bedtime dose. Oral haloperidol can be tapered over the period of the first 3 decanoate shots (60-90 days) depending on response. -Continue clozapine but decrease to 25 mg daily, as he has not been taking it, and continue to encourage him to try it, as it was reportedly beneficial in the past and stabilized him sufficiently to be discharged from the [facility]. -Continue as needed medications (Lorazepam, benztropine, haloperidol, and hydroxyzine). 01/07 -continue current medications and plan. 01/08 - Continue current meds and plan - Diversion meeting with the [facility] scheduled for tomorrow. 01/09 -continue private room given antisocial behavior/stealing. Meeting held with the [facility], who do not feel he is appropriate for CRR placement and support state hospitalization. We have not yet received acceptance from [facility]. -Staff to search room daily and remove contraband, restrict patient's ability to keep items in his room due to repeated stealing and having access to items that could potentially be harmful, such as a large amount of hand pet trainer. 01/10 -continue current plan. Coordinate with the [facility]. 01/11 - Continue current plan, awaiting acceptance and bed date from the [facility] - Although this is preferred plan, will need to arrange alternative options for appropriate discharge should bed date surpass ongoing criteria for inpatient admission 01/12 - Continue haloperidol 10mg qAM with scheduled injections of haloperidol decanoate - Given significant period of refusing scheduled clozapine - will cancel the medication and scheduled CBC blood draws - Awaiting acceptance to the [facility] and projected bed date - Continuing to work with [facility] resources should alternative arrangements be needed 01/15 - Continue current medication and treatment plan - On line of sight, MNPR, and high elopement precautions due to ongoing antisocial behaviors 01/16 - Continue current medication and treatment plan - Consider alternative housing options, boarding home or personal halfway to be explored 01/17 -continue current medications and plan. 01/19 - Continue current medication regimen - Meeting with commercial sales representative from [facility] today to explore alternative discharge plans] 01/20 haldol liquid po doses stopped, decanote dosing 300mg IM every 4 weeks, next due 02/16/1901/21 -maintained treatment plan unchanged 01/22 -continue exploration of diversion options, coordinate with [facility]. Social work has discussed the possibility of diversion with the patient's mother who is his rep payee. 01/23 - Continue current medication regimen - Received confirmation that patient has been accepted at [facility] at discharge 01/24 - Continue current treatment plan unchanged 01/25 - Continue current treatment plan (2) Noncompliance with medications: 12/14 -stopped his medications 6 months ago and has decompensated since. Would benefit from a long-acting injectable, and either long-term inpatient treatment at the [facility] or involuntary outpatient treatment.. 12/15 -The patient's psychosis and severely impaired insight seem to be making him and accessible to reason, regarding the essential importance of psychiatric medications. There is a past history of favorable response to haloperidol as well as to clozapine. It is agreed that the patient would in all likelihood benefit from a long-acting injectable antipsychotic medication, given his history of recurrent medication nonadherence. 12/16--currently taking PO for a few doses, is on extended involuntary commitment and clearly ongoing schizophrenia which will fail to improve for him to be able to provide self-care without ongoing treatments on inpatient unit and medications over objection. Without antipsychotic medication he is at significant risk of /serious disability and a danger to himself/others. Dr. Srinivasan could provide second opinion if he refuses PO med. 12/18- Patient refusing to consider LAMA at this time. Will continue to encourage 12/21 -patient continues to refuse Haldol Decanoate, and is now also refusing oral Haldol. We will proceed with medications over objection, as he has a diagnosis of primary thought disorder, has benefited from Haldol Decanoate in the past, he is actively delusional and is refusing medications due to psychotic thought processes, and is at risk of harm to both himself and others if he remains untreated. He has a significant history of violence tied to his delusions, and it will be important to get his symptoms adequately managed to decrease the risk of violence towards others here in the hospital. 12/22 -medication adherence is most certainly going issue with this patient. We are recommending the continued use of Depo forms of antipsychotic medications, but, in the past, the patient has simply refused to return to the office of the healthcare professional who is administering the sectionas was the case last year when, after doing reasonably well, he stopped going for treatment, and stopped excepting medications. For this reason, we are carefully looking for a supportive living setting for this patient, preferably one that has the resources necessary to assist the resistant, not adherent to patient. 12/24 - remains better compliant with PO meds 12/25 - Takes meds when he thinks he needs them, but voiced some question about taking anything regularly after discharge. 12/29 -the patient refused a dose of haloperidol yesterday and received haloperidol 10 mg intramuscularly over objection from disease no holes were required and the patient was cooperative with the injection closed with disease. Afterwards, he wondered out loud why he had refused the medication, knowing that he would get it "one way or the other." Because the patient seemed to have responded well, in terms of his disorganized thinking, to the intramuscular dose of haloperidol, there has been some discussion in the team regarding the question of "cheeking" his oral medications. However, the explanation may be that haloperidol 10 mg IM is more potent than orally. In any event, today the patient commits to continued adherence with his medications as he acknowledges that he does feel that they have been helpful to him. 12/31 -potential signs of non compliance 12/30 and 12/31, consider further titration of haldol deaconate as appropriate to help ensure as full of dose being obtained as possible. maintained plan of haldol IM injections for non compliance of haldol po doses 01/05- Switch Haldol to liquid due to cheeking. 01/06 -second dose of Haldol Decanoate as above. Will taper off of oral Haldol over the next 30-60 days, and ideally maintain him on injectable medication given his history of cheeking and noncompliance with oral medication. He continues to refuse clozapine, could consider the addition of an injectable atypical antipsychotic if Haldol Decanoate is insufficient to control symptoms. 01/09 -taking Haldol liquid, but refusing clozapine. Meeting help with the county to discuss potential diversion options, during which patient was delusional and demonstrated very poor insight. He continues to state he would not take medications after discharge. 01/12 - Given consistent refusal of scheduled clozapine since its initial administration, will discontinue scheduled dose as well as scheduled blood draws for CBCs 01/20 - haldol now decanoate IM only (3) Substance abuse: 12/14 -patient is not forthcoming, but mother reports he has been abusing alcohol, cough syrup, diphenhydramine, and likely other substances. We will monitor for withdrawal symptoms, and as his psychosis improves, will provide psychoeducation about the risks of substance abuse and recommendations for abstinence. -Avoid controlled substances given high risk of abuse/misuse/negative outcomes. 12/15 -It is recognized that the patient has an extensive history of abusing chemical substances, and it is generally agreed that use of controlled substances does pose significant risk of abuse and other negative outcomes in the long-term. However, the patient's irritability and unwillingness to cooperate with essential medications, such as haloperidol, as well as his hist ory of physical aggression towards others, may be mitigated by the temporary use of a benzodiazepine. Today, a single dose of lorazepam seems to have been effective in helping the patient maintain composure during an involuntary commitment hearing that did not go in his favor, and staff have noticed that he has been somewhat more cooperative today, possibly in response to the dose of lorazepam. Accordingly, staff will continue to offer the patient as needed lorazepam. 12/21 -admission drug screen was positive for benzodiazepines, with significantly elevated temazepam (> 2000) and elevated oxazepam levels. Although he denied taking benzodiazepines prior to admission, he clearly was accessing them somehow. 12/22 -the patient is able to give what may be referred to as "lip service" to the concept of abstinence from drugs of abuse, but he seems to have little or no insight into the risks associated with his abuse of mood altering chemical substances, particularly within the context of his psychiatric illness. Again, a whole will be to identify an aftercare placement that we will be able to monitor him more assiduously for access to abusable chemical substances, including prescription medications, alcohol, and other drugs of abuse. 01/22 -patient has been requesting and receiving Lorazepam 0.5 mg 1-2 times daily. We will decrease this to a maximum of once daily, as it should not be continued outside of the hospital given his substance abuse issues, and it may be contributing to sedation as he spends much of his time in bed. (4) Antisocial personality disorder: 12/14 -extensive, lifelong history provided by adoptive mother which reveals a pervasive pattern of disregard for and violation of the rights of others which started at age 8 or earlier, failure to conform to social norms with respect to lawful behaviors as indicated by repeatedly performing acts that are grounds for arrest, deceitfulness, impulsivity and failure to plan ahead, irritability and aggressiveness, reckless disregard for safety of self and others, consistent irresponsibility, and lack of remorse. 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 -Reviewed expectations with respect to behavior on the unit. 12/15 -The patient's history of antisocial behavior is noted, and antisocial personality will not be a focus of treatment during this hospitalization. However, the record indicates that the patient's antisocial behaviors, which are lifelong, are mitigated to some extent when he is being successfully treated for his psychotic disorder. Accordingly, the approach will be to address his antisocial behaviors by focusing on addressing his psychosis. 12/22 -The patient's long-standing history of antisocial behaviorbehavior which reportedly predates the onset of his symptoms of schizophreniahave not been a focus of treatment and are unlikely to change. Careful monitoring, diversion, containment to the degree possible, to containment of the most appropriate interventions for this problem. 01/11 - Pt made aware again of unit expectations. With evidence of patient stealing keys and causing damage to room items - he remains on a medically necessary private room. His room is to be searched twice daily to ensure any stolen, non-essential, or potentially hazardous items are not being accumulated to the point of causing potential harm. Continue to enforce clear boundaries. 01/15 - Line of sight, high elopement precautions, and MNPR due to attempts to elope and repeatedly stealing and hiding items on the unit. Stole another patient's liquid medication off the med cart in the nurses' station and took 80- 100mg hydroxyzine, hid liquid citalopram in his room. 01/25 - More interactive on the unit, associating with peers. Remains on line of sight and MNPR. Inventory Assets Strengths: Good physical health. Able to form alliances with certain peers. Concerned and supportive parents. Needs: Continued adherence with psychiatric medications, compliance with outpatient treatment, engagement in treatment, sobriety Risk Factors Assessment Male: Yes : Yes Do You Have Access To A Gun?: No Health Problems: Yes Mental Health Diagnoses: Yes Substance Use Disorders: Yes Previous Attempt: No Previous Psychiatric Hospitalization: Yes Hopelessness: No Smoker: Yes Protective Factors Assessment L[employer] Beliefs: No : No Responsible for Young Children: No Employed: No Stable Relationships: No Supportive Family: Yes Good Rapport with Provider: No Absence of Any Risk Factors Above: No Interval History Identifying Information APRIL GONZALEZ is a 43-year-old M who lives in [place] with his parents, has a history of a psychotic disorder (specific diagnosis not yet known, but history of multiple previous hospitalizations including a 1 year [facility] hospitalization in [place]), and was admitted on 12/14/18 03:41 on a 302 involuntary commitment for psychosis, treatment noncompliance, and erratic, unsafe behavior. He is on a 304 involuntary commitment as of 12/26/2018. Chief Complaint "Um...yeah, I'm ok. My day's been fine." Review of Systems Notes Constitutional: denied Cardiovascular: denied Respiratory: denied Gastrointestinal: denied Neurological: denied Psychiatric: denies symptoms other than stated above Total of at least 10 systems reviewed, pertinent positives as above and in HPI. Sleep Information Total Hours of Sleep: 6.75 Sleep Comments: pt appeared to sleep 2.75 hrs during evening shift. pt on q-15 minute checks. pt continue with "line of sight" during the night. Meal Information Percent Meal Consumed - Breakfast: 100 Percent Meal Consumed - Lunch: 100 Percent Meal Consumed - Dinner: 100 Nutrition Comment: per meal record Subjective Subjective Patient was seen & assessed and interval progress reviewed with Nursing. There are no changes reported by staff in regard to projected discharge plan, no further communication from the [facility] at this time. Patient was seen today to assess progress since admission. Patient states he is doing well today and has no concerns. He does report that he wrote a letter to his parents today, asking them to bring a list of supplies to the boarding home when he is discharged. Patient states he has been calling them periodically on the unit, but "I did not want him to have to write down a long list, so I just mailed it." Patient denies any suicidal ideation or other acute concerns today. He has been more active on the unit this week. Physical Exam Psychiatric Orientation: alert, oriented x 3 and cooperative Apperance: appropriately dressed (Wearing the same closed for several days in a row) and + disheveled (Somewhat) Eye Contact: good eye contact Motor Behavior: steady gait and station and no abnormal motor movements Speech: normal rate/rhythm/volume of speech Affect: + blunted affect (But does not appear overtly depressed) and mood congruent with affect "Fine" Thought Process: goal directed thought process and clear/coherent thought process Thought Content: reality based without delusions Suicidal Thoughts: denies suicidal thoughts Homicidal Thoughts: denies homicidal thoughts Hallucinations: + auditory 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 (Admits to hearing voices in his right ear, not distressing); no visual 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 Cognition: recent memory grossly intact, attention grossly intact and language grossly intact Estimated Intelligence: consistent with education level Insight: + impaired insight Judgement: + impaired judgement Vital Signs (Past 24 Hours) Last Vital Signs Temp 36.7 C 01/24/19 10:54 Pulse 85 01/24/19 10:54 Resp 16 01/24/19 10:54 BP 127/77 01/24/19 10:54 Pulse Ox 97 12/14/18 03:38 Results & Data Current Inpatient Medications Current Inpatient Medications: Current Inpatient Medications Acetaminophen (Tylenol) 650 mg PO Q4H PRN PRN Reason: Headache or Minor Fever Stop: 02/09/19 08:29 Last Admin: 01/24/19 17:53 Dose: 650 mg Documented by: Al Hydrox/Mg Hydrox/Simethicone (Maalox) 30 ml PO Q4H PRN PRN Reason: GI Upset Stop: 02/09/19 08:29 Benztropine Mesylate (Cogentin) 1 mg PO BID PRN PRN Reason: akathisia Stop: 02/09/19 08:29 Last Admin: 01/21/19 09:43 Dose: 1 mg Documented by: Bismuth Subsalicylate (Kaopectate) 15 ml PO PRN PRN PRN Reason: Loose Stool Stop: 02/09/19 08:29 Docusate Sodium (Colace) 100 mg PO HS PRN PRN Reason: constipation Stop: 02/09/19 08:29 Haloperidol Decanoate (Haldol Decanoate) 300 mg IM ONE ONE Stop: 02/16/19 15:08 Haloperidol Lactate (Haldol Lactate) 10 mg PO Q4H PRN PRN Reason: Psychosis or agitation Stop: 02/09/19 08:29 Haloperidol Lactate (Haldol) 10 mg IM Q4 PRN PRN Reason: psychosis or agitation Stop: 02/09/19 08:29 Lorazepam (Ativan) 0.5 mg PO DAILY PRN PRN Reason: Agitation Stop: 02/08/19 08:34 Last Admin: 01/24/19 17:53 Dose: 0.5 mg Documented by: Magnesium Hydroxide (Milk Of Magnesia) 30 ml PO DAILY PRN PRN Reason: Heartburn Stop: 02/09/19 08:29 Menthol (Nice) 1 be BUCCAL Q2H PRN PRN Reason: Sore Throat Stop: 02/09/19 08:29 Miscellaneous (Remove Nicoderm Patch) 1 ea N/A DAILY@2100 [facility] Stop: 02/09/19 20:59 Last Admin: 01/24/19 21:37 Dose: Not Given Documented by: Nicotine (Nicoderm Cq) 21 mg TD QAM KELLY Stop: 02/09/19 08:59 Last Admin: 01/25/19 08:48 Dose: Not Given Documented by: Nicotine Polacrilex (Nicorette 2mg) 1 piece MT UD PRN PRN Reason: Nicotine Withdrawal Stop: 02/09/19 08:34 Last Admin: 01/24/19 17:57 Dose: 1 piece Documented by: Sodium Chloride ([place] Nasal) 1 - 2 sprays NA PRN PRN PRN Reason: Nasal Dryness/Congestion Stop: 02/09/19 08:34 Post Discharge Appointments Primary Care Physician Name Of Family Doctor: Denies Psychiatrist Name of Psychiatrist: [facility] Anuradha Ramírez for the assessment (Important! Next injection due 02/16) Psychiatrist's Date of Appointment with Psychiatrist: 01/30/19 Time of Appointment with Psychiatrist: 9:00 a.m. Psychiatric Appointment Comment: [address], [place] [address] Therapist Name of Therapist: Denies Policewoman Name of Policewoman: [employer] Phone Number for Policewoman: [phone] Case Management Appointment Comment: [address], [address], [place], [place] Contact Information Discharge Discharge [address]: [address] [place] [address] CPT Code CPT Code 50950 (1) Schizophrenia Schizophrenia type: paranoid schizophrenia Qualified Code(s): F20.0 - Paranoid schizophrenia
[2019-01-25] MEDS: ACETAMINOPHEN 325 MG TAB PO PRN (20:27)
[2019-01-25] MEDS: LORazepam 0.5 MG TAB PO PRN (20:27)
[2019-01-26] MEDS: NICOTINE 21 MG/24 HR TDSY TD SCH (09:24)
--- NOTE | 2019-01-26 10:01 | Psychiatric Progress Note ---
Date of Service January 26, 2019 Impression / Recommendations Impression No significant change in presentation, appearing more active on unit. We still have not received any further information from [facility] regarding our referral sent 1 month ago. Decision was made to continue with diversionary discharge planning to [facility]. Current plan is for discharge on 01/29/2019 with conversion to a 304 outpatient commitment. It is highly unlikely that ongoing inpatient psychiatric admission at this level of care would be able to fully mitigate further risks of antisocial behaviors, which innately cause patient to be at higher risk of harm to self or others when compared to the general population. There are multiple concerns with patient being discharged without an active 304 outpatient commitment, given his history of medication noncompliance. There is also concern about discharging the patient to a situation where he will not be supervised in some capacity, requiring extra time to coordinate appropriate discharge plans. We have completed medication adjustments to target psychiatric symptoms, which are continuing but reported to be less distressing for the patient. We will attempt to continue to target other risk factors during the remainder of his stay. (1) Schizophrenia: 12/14 -patient is a poor historian, but mother provides historical information. 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 For now we will collect psychosis not otherwise specified. -Patient is refusing to sign releases for previous outpatient providers in [place], and staff contacted them but they refused to provide any information without a signed release. -Medically necessary private room due to psychosis, erratic and disorganized behavior, history of violence, and aggressive behavior and threats to harm others here in the hospital. -Start haloperidol 5 mg twice daily, as patient has a previous good response to Haldol Decanoate and clozapine. Recommend medications over objection once he is on a 303 involuntary commitment and has been seen by a second physician, as he has severe psychotic symptoms which are preventing him from accurately interpreting reality, influencing his behavior, and placing him at risk of harm to both himself and others as he has been acting on his delusions, experiencing auditory and visual 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, paranoia, engaging in unsafe behaviors including driving when he does not have a license or the knowledge to do so, abusing substances, and has been threatening towards others. He demonstrates no insight into his condition, but available information indicates response to treatment with antipsychotic medications in the past. -Medically necessary private room due to psychosis, aggressive behavior, and threats to harm others. -We will need to check fasting lipid profile and glucose once he is cooperative. -Excused from groups from the time being until able to participate appropriatel y. -Refusing to sign releases for parents, but mother is petitioner, so can inform her of the 303 hearing. 12/15 -The patient did accept a single dose of lorazepam this morning, and did seem to be somewhat more calm. He was mildly labile during his involuntary commitment hearing this morning, but managed to maintain control and was not aggressive during the hearing or upon learning that he had been retained by the hearing aid assembly supervisor. Accordingly, we will continue to offer him lorazepam, since this medication in his case does not seem to be disinhibiting and, at least today, appeared to have helped him manage angry impulses during his involuntary commitment hearing. -The treatment team and I agree that, if possible, we would like to convince the patient to voluntarily take oral medications. Reports are that this morning he came close to taking oral haloperidol, but at the last minute declined. He is telling us that he will consistently refused medications, but our hope is that as we are able to gain his trust he will become more cooperative. We will continue to try to convince the patient to take oral haloperidol, but if this is unsuccessful we will seek two physician approval of medication over objection and give Haldol 5 mg IM BID. 12/16--tolerating Haldol, titrate to 10 mg BID. 12/18 - Continue haldol 10 mg bid - Continue discussion about LAMA - Encourage better sleep hygiene, staying awake in the day to promote sleep at night. 12/19 - Patient allowed labs to be drawn. FBS 93, FLP WNL with the exception of triglycerides of 186. Counseled to avoid fatty red meats, saturated fats. 12/20 -Again discussed the recommendations for long-acting injectable antipsychotic medication with the patient, which he initially declined because he said medications are poison. He has a meeting with his family this afternoon, and I will order the first loading dose of Haldol Decanoate 50 mg IM to be administered this afternoon, and if he is unwilling to take it, we will likely need to proceed with medications over objection tomorrow. We will try to encourage him to accept the intervention, as he reportedly did fairly well on this medication in the past. 12/21 -proceed with medications over objection: Haldol Decanoate 100 mg IM today, and Haldol 10 mg IM for refusal of oral Haldol. He will need 100-200 mg of Haldol Decanoate every 4 weeks based on his current oral dose, so will continue oral haloperidol for now until we can monitor response to the decanoate. 12/22 -the patient received Haldol Decanoate intramuscularly today, as a medication over objection. He tolerated the injection well, and today tells me that he "feels pretty good." -Today, the patient's associations seemed to be fairly tight on examination. He tends to be somewhat concrete in his thinking, but, as above, he did seem able to understand our rationale for continuing inpatient treatment at this point. 12/23 - tolerating halol dec w/o EPS or other complaints. will need to consider reduction of oral dose in approx 1 week. 12/24 - pt remains less acutely behaviorally disturbed since Haldol dec injection last however evidenced mild acting out when physically uncomfortable today - will add standing docusate 100mg po qhs and encourage oral hydration today for complaint of hard stool - meeting w/ [facility] services tomorrow to explore dispo options 12/25 - Increase in irritability - Planning meeting held with [facility]: possibility for CRR vs state hospital - Continue current meds and encourage prns 12/26 - 304 granted. Meeting with [facility], patient and parents held yesterday: parents confirmed he cannot return home. Treatment team and [facility] recommends state hospitalization, as patient not appropriate for CRR placement due to severity of symptoms and unwillingness for outpatient treatment and medications. 12/27 - Continue current medication regimen - Orders placed for necessary EKG, TB skin test to accompany [place] referral - Place on high elopement precautions last evening due to suspicious loitering at the entryway of the unit - Reviewed [place] from [facility] - previous diagnoses were schizoaffective disorder and substance abuse 12/28 - Continue current medication regimen - EKG and PPD completed yesterday - PPD will need read on 12/30 12/29 -Add clozapine 12.5 mg BID and increase as tolerated by 25 mg per day to a dose of 300 mg daily (in two divided dosages, or all at bedtime).' 12/30 -titrating clozapine to 12.5 am and 25mg hs for 12/30 with plan to increase to 25mg bid on 12/31 and likely further titration if tolerating -maintained Haldol decanoate and Haldol po unchanged for now, with consideration of weaning Haldol po dose if clozapine is effective ,, although pt appears to have history of both Haldol forms being rx'd while on past clozapine med trial. Pt has been observed by staff to be improving as obtaining medication of haldol (including the immediate IM doses) 12/31 close monitoring for checking, continue plan above for IM Haldol over objection if checking haldol scheduled doses. Maintain clozapine dosing plan for now with potential re-considering clozapine plan if compklaince issues are oc curing. Consider further titration of haldol decanoate as appropaite. 01/01 - Patient refusing Clozaril. Will leave in place, but not force meds over objection for refusal - Increase Haldol to 10 mg AM and 15 mg HS, with meds over objection for refusal - Continue MNPR due to irritability and hx of violence 01/02 -continue oral haloperidol 10 mg every morning and 15 mg at bedtime (moved to later time to try to minimize sedation/spending excessive time in bed during the day), and Haldol decanoate, next injection due 01/19/2019. Continue Lorazepam as needed. -He continues to refuse clozapine. 01/03 - Continue current meds and plan - Continue MNPR in deference to history of violence toward others. 01/04 - Continue current meds and plan - Meeting scheduled with the [facility] to discuss disposition 01/05 - Change pills to liquid due to cheeking - Encourage patient to be out of bed and participating in his treatment - Planning meeting scheduled with the [facility] for next Saturday 01/06 -Patient agrees to a second Haldol Decanoate injection, 100 mg, with the hopes that we can taper him off oral haloperidol given his poor compliance. He has been on 25 mg p.o. daily, which is the equivalent of an initial dose of 500 mg decanoate (per UpToDate, dose of oral haloperidol > 10 mg and high risk of relapse, initiate dose at 20 times the daily oral dose). He got his initial Haldol Decanoate 100 mg on 12/22/2018. He will be due for his next injection on 01/19/2019, currently ordered for 200 mg, but may need to consider a higher dose given noncompliance with oral medication. Maintenance doses are typically 50- 200 mg. Will continue oral haloperidol liquid 10 mg every morning, but discontinue the 15 mg at bedtime dose. Oral haloperidol can be tapered over the period of the first 3 decanoate shots (60-90 days) depending on response. -Continue clozapine but decrease to 25 mg daily, as he has not been taking it, and continue to encourage him to try it, as it was reportedly beneficial in the past and stabilized him sufficiently to be discharged from the [facility]. -Continue as needed medications (Lorazepam, benztropine, haloperidol, and hydroxyzine). 01/07 -continue current medications and plan. 01/08 - Continue current meds and plan - Diversion meeting with the [facility] scheduled for tomorrow. 01/09 -continue private room given antisocial behavior/stealing. Meeting held with the [facility], who do not feel he is appropriate for CRR placement and support state hospitalization. We have not yet received acceptance from [facility]. -Staff to search room daily and remove contraband, restrict patient's ability to keep items in his room due to repeated stealing and having access to items that could potentially be harmful, such as a large amount of hand research physicist. 01/10 -continue current plan. Coordinate with the [facility] hospital. 01/11 - Continue current plan, awaiting acceptance and bed date from the [facility] - Although this is preferred plan, will need to arrange alternative options for appropriate discharge should bed date surpass ongoing criteria for inpatient admission 01/12 - Continue haloperidol 10mg qAM with scheduled injections of haloperidol decanoate - Given significant period of refusing scheduled clozapine - will cancel the medication and scheduled CBC blood draws - Awaiting acceptance to the [facility] hospital and projected bed date - Continuing to work with [facility] resources should alternative arrangements be needed 5 - Continue current medication and treatment plan - On line of sight, MNPR, and high elopement precautions due to ongoing antisocial behaviors 01/16 - Continue current medication and treatment plan - Consider alternative housing options, boarding home or personal senior care to be explored 01/17 -continue current medications and plan. 01/19 - Continue current medication regimen - Meeting with freight representative from [place] today to explore alternative discharge plans] 01/20 haldol liquid po doses stopped, decanote dosing 300mg IM every 4 weeks, next due 02/16/1901/21 -maintained treatment plan unchanged 01/22 -continue exploration of diversion options, coordinate with [facility] and [facility]. Social work has discussed the possibility of diversion with the patient's mother who is his rep payee. 01/23 - Continue current medication regimen - Received confirmation that patient has been accepted at [place] boarding home at discharge 01/24 - Continue current treatment plan unchanged 01/25 - Continue current treatment plan 01/26 - Continue current medication regimen and treatment plan - Anticipating activation of diversionary plan with pending discharge to [place] on Tuesday - Next injection of Haldol Decanoate 300mg IM scheduled for 02/16/19, here on unit. Will communicate schedule with outpatient providers and case finisher. (2) Noncompliance with medications: 12/14 -stopped his medications 6 months ago and has decompensated since. Would benefit from a long-acting injectable, and either long-term inpatient treatment at the [facility] or involuntary outpatient treatment.. 12/15 -The patient's psychosis and severely impaired insight seem to be making him and accessible to reason, regarding the essential importance of psychiatric medications. There is a past history of favorable response to haloperidol as well as to clozapine. It is agreed that the patient would in all likelihood benefit from a long-acting injectable antipsychotic medication, given his history of recurrent medication nonadherence. 12/16--currently taking PO for a few doses, is on extended involuntary commitment and clearly ongoing schizophrenia which will fail to improve for him to be able to provide self-care without ongoing treatments on inpatient unit and medications over objection. Without antipsychotic medication he is at significant risk of /serious disability and a danger to himself/others. Dr. Srinivasan could provide second opinion if he refuses PO med. 12/18- Patient refusing to consider LAMA at this time. Will continue to encourage 12/21 -patient continues to refuse Haldol Decanoate, and is now also refusing oral Haldol. We will proceed with medications over objection, as he has a diagnosis of primary thought disorder, has benefited from Haldol Decanoate in the past, he is actively delusional and is refusing medications due to psychotic thought processes, and is at risk of harm to both himself and others if he remains untreated. He has a significant history of violence tied to his delusions, and it will be important to get his symptoms adequately managed to decrease the risk of violence towards others here in the hospital. 12/22 -medication adherence is most certainly going issue with this patient. We are recommending the continued use of Depo forms of antipsychotic medications, but, in the past, the patient has simply refused to return to the office of the healthcare professional who is administering the sectionas was the case last year when, after doing reasonably well, he stopped going for treatment, and stopped excepting medications. For this reason, we are carefully looking for a supportive living setting for this patient, preferably one that has the resources necessary to assist the resistant, not adherent to patient. 12/24 - remains better compliant with PO meds 12/25 - Takes meds when he thinks he needs them, but voiced some question about taking anything regularly after discharge. 12/29 -the patient refused a dose of haloperidol yesterday and received haloperidol 10 mg intramuscularly over objection from disease no holes were required and the patient was cooperative with the injection closed with disease. Afterwards, he wondered out loud why he had refused the medication, knowing that he would get it "one way or the other." Because the patient seemed to have responded well, in terms of his disorganized thinking, to the intramuscular dose of haloperidol, there has been some discussion in the team regarding the question of "cheeking" his oral medications. However, the explanation may be that haloperidol 10 mg IM is more potent than orally. In any event, today the patient commits to continued adherence with his medications as he acknowledges that he does feel that they have been helpful to him. 12/31 -potential signs of non compliance 12/30 and 12/31, consider further titration of haldol deaconate as appropriate to help ensure as full of dose being obtained as possible. maintained plan of haldol IM injections for non compliance of haldol po doses 01/05- Switch Haldol to liquid due to cheeking. 01/06 -second dose of Haldol Decanoate as above. Will taper off of oral Haldol over the next 30-60 days, and ideally maintain him on injectable medication given his history of cheeking and noncompliance with oral medication. He continues to refuse clozapine, could consider the addition of an injectable atypical antipsychotic if Haldol Decanoate is insufficient to control symptoms. 01/09 -taking Haldol liquid, but refusing clozapine. Meeting help with the county to discuss potential diversion options, during which patient was delusional and demonstrated very poor insight. He continues to state he would not take medications after discharge. 01/12 - Given consistent refusal of scheduled clozapine since its initial adminis tration, will discontinue scheduled dose as well as scheduled blood draws for CBCs 01/20 - haldol now decanoate IM only (3) Substance abuse: 12/14 -patient is not forthcoming, but mother reports he has been abusing alcohol, cough syrup, diphenhydramine, and likely other substances. We will monitor for withdrawal symptoms, and as his psychosis improves, will provide psychoeducation about the risks of substance abuse and recommendations for abstinence. -Avoid controlled substances given high risk of abuse/misuse/negative outcomes. 12/15 -It is recognized that the patient has an extensive history of abusing chemical substances, and it is generally agreed that use of controlled substances does pose significant risk of abuse and other negative outcomes in the long-term. However, the patient's irritability and unwillingness to cooperate with essential medications, such as haloperidol, as well as his history of physical aggression towards others, may be mitigated by the temporary use of a benzodiazepine. Today, a single dose of lorazepam seems to have been effective in helping the patient maintain composure during an involuntary commitment hearing that did not go in his favor, and staff have noticed that he has been somewhat more cooperative today, possibly in response to the dose of lorazepam. Accordingly, staff will continue to offer the patient as needed lorazepam. 12/21 -admission drug screen was positive for benzodiazepines, with significantly elevated temazepam (> 2000) and elevated oxazepam levels. Although he denied taking benzodiazepines prior to admission, he clearly was accessing them somehow. 12/22 -the patient is able to give what may be referred to as "lip service" to the concept of abstinence from drugs of abuse, but he seems to have little or no insight into the risks associated with his abuse of mood altering chemical substances, particularly within the context of his psychiatric illness. Again, a whole will be to identify an aftercare placement that we will be able to monitor him more assiduously for access to abusable chemical substances, including prescription medications, alcohol, and other drugs of abuse. 01/22 -patient has been requesting and receiving Lorazepam 0.5 mg 1-2 times daily. We will decrease this to a maximum of once daily, as it should not be continued outside of the hospital given his substance abuse issues, and it may be contributing to sedation as he spends much of his time in bed. (4) Antisocial personality disorder: 12/14 -extensive, lifelong history provided by adoptive mother which reveals a pervasive pattern of disregard for and violation of the rights of others which started at age 8 or earlier, failure to conform to social norms with respect to lawful behaviors as indicated by repeatedly performing acts that are grounds for arrest, deceitfulness, impulsivity and failure to plan ahead, irritability and aggressiveness, reckless disregard for safety of self and others, consistent irresponsibility, and lack of remorse. 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 -Reviewed expectations with respect to behavior on the unit. 12/15 -The patient's history of antisocial behavior is noted, and antisocial personality will not be a focus of treatment during this hospitalization. However, the record indicates that the patient's antisocial behaviors, which are lifelong, are mitigated to some extent when he is being successfully treated for his psychotic disorder. Accordingly, the approach will be to address his antisocial behaviors by focusing on addressing his psychosis. 12/22 -The patient's long-standing history of antisocial behaviorbehavior which reportedly predates the onset of his symptoms of schizophreniahave not been a focus of treatment and are unlikely to change. Careful monitoring, diversion, containment to the degree possible, to containment of the most appropriate interventions for this problem. 01/11 - Pt made aware again of unit expectations. With evidence of patient stealing keys and causing damage to room items - he remains on a medically necessary private room. His room is to be searched twice daily to ensure any stolen, non-essential, or potentially hazardous items are not being accumulated to the point of causing potential harm. Continue to enforce clear boundaries. 5/6 - Line of sight, high elopement precautions, and MNPR due to attempts to elope and repeatedly stealing and hiding items on the unit. Stole another patient's liquid medication off the med cart in the nurses' station and took 80- 100mg hydroxyzine, hid liquid citalopram in his room. 01/25 - More interactive on the unit, associating with peers. Remains on line of sight and MNPR. Inventory Assets Strengths: Good physical health. Able to form alliances with certain peers. Concerned and supportive parents. Needs: Continued adherence with psychiatric medications, compliance with outpatient treatment, engagement in treatment, sobriety Risk Factors Assessment Male: Yes : Yes Do You Have Access To A Gun?: No Health Problems: Yes Mental Health Diagnoses: Yes Substance Use Disorders: Yes Previous Attempt: No Previous Psychiatric Hospitalization: Yes Hopelessness: No Smoker: Yes Protective Factors Assessment Sabianist Beliefs: No : No Responsible for Young Children: No Employed: No Stable Relationships: No Supportive Family: Yes Good Rapport with Provider: No Absence of Any Risk Factors Above: No Interval History Identifying Information APRIL GONZALEZ is a 43-year-old M who lives in [place] with his parents, has a history of a psychotic disorder (specific diagnosis not yet known, but history of multiple previous hospitalizations including a 1 year state hospitalization in [place]), and was admitted on 12/14/18 03:41 on a 302 involuntary commitment for psychosis, treatment noncompliance, and erratic, unsafe behavior. He is on a 304 involuntary commitment as of 12/26/2018. Chief Complaint "Ok. I don't know, just hanging out." Review of Systems Notes Constitutional: denied Cardiovascular: denied Respiratory: denied Gastrointestinal: denied Neurological: denied Psychiatric: denies symptoms other than stated above Total of at least 10 systems reviewed, pertinent positives as above and in HPI. Sleep Information Total Hours of Sleep: 5 Sleep Comments: pt appeared to sleep 2.75 hrs during evening shift. pt on q-15 minute checks. pt continue with "line of sight" during the night. Meal Information Percent Meal Consumed - Breakfast: 100 Percent Meal Consumed - Lunch: 100 Percent Meal Consumed - Dinner: 100 Nutrition Comment: per meal record Subjective Subjective Patient was seen & assessed and interval progress reviewed with Treatment Team. Staff reports the patient continues to be behaviorally appropriate, and is interacting with peers on the unit. Patient has been assigned to a case finisher to allow for ongoing coordination of care at discharge. Patient was seen today to assess progress since admission. He states he is doing well today. Patient states he has been attending more groups; however, does not necessarily remember all of the topics. Patient continues to be present in the day area in the evenings, primarily watching TV. Patient continues to be agreeable current discharge planning, and states he has no concerns regarding pending discharge to [place]. Patient is aware that he has been assigned a case finisher, and states he has already met with the individual and is familiar with him. Patient denies any suicidality or other concerns today. Physical Exam Psychiatric Orientation: alert, oriented x 3 and cooperative Apperance: appropriately dressed (But wearing same clothes for the last several days) and + disheveled (Hair is unkempt) Eye Contact: good eye contact Motor Behavior: steady gait and station and no abnormal motor movements Speech: normal rate/rhythm/volume of speech Affect: euthymic affect and mood congruent with affect "Ok" Thought Process: goal directed thought process and clear/coherent thought process Thought Content: reality based without delusions (No obvious delusional thought content) Suicidal Thoughts: denies suicidal thoughts Homicidal Thoughts: denies homicidal thoughts Hallucinations: + auditory 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 (Persistent "voices" described to be coming from his "right ear"); no visual 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 Cognition: attention grossly intact and language grossly intact Estimated Intelligence: consistent with education level Insight: + limited insight Judgement: + poor judgement Vital Signs (Past 24 Hours) Last Vital Signs Temp 36.7 C 01/24/19 10:54 Pulse 85 01/24/19 10:54 Resp 16 01/24/19 10:54 BP 127/77 01/24/19 10:54 Pulse Ox 97 12/14/18 03:38 Results & Data Current Inpatient Medications Current Inpatient Medications: Current Inpatient Medications Acetaminophen (Tylenol) 650 mg PO Q4H PRN PRN Reason: Headache or Minor Fever Stop: 02/09/19 08:29 Last Admin: 01/25/19 20:27 Dose: 650 mg Documented by: Al Hydrox/Mg Hydrox/Simethicone (Maalox) 30 ml PO Q4H PRN PRN Reason: GI Upset Stop: 02/09/19 08:29 Benztropine Mesylate (Cogentin) 1 mg PO BID PRN PRN Reason: akathisia Stop: 02/09/19 08:29 Last Admin: 01/21/19 09:43 Dose: 1 mg Documented by: Bismuth Subsalicylate (Kaopectate) 15 ml PO PRN PRN PRN Reason: Loose Stool Stop: 02/09/19 08:29 Docusate Sodium (Colace) 100 mg PO HS PRN PRN Reason: constipation Stop: 02/09/19 08:29 Haloperidol Decanoate (Haldol Decanoate) 300 mg IM ONE ONE Stop: 02/16/19 15:08 Haloperidol Lactate (Haldol Lactate) 10 mg PO Q4H PRN PRN Reason: Psychosis or agitation Stop: 02/09/19 08:29 Haloperidol Lactate (Haldol) 10 mg IM Q4 PRN PRN Reason: psychosis or agitation Stop: 02/09/19 08:29 Lorazepam (Ativan) 0.5 mg PO DAILY PRN PRN Reason: Agitation Stop: 02/08/19 08:34 Last Admin: 01/25/19 20:27 Dose: 0.5 mg Documented by: Magnesium Hydroxide (Milk Of Magnesia) 30 ml PO DAILY PRN PRN Reason: Heartburn Stop: 02/09/19 08:29 Menthol (Nice) 1 be BUCCAL Q2H PRN PRN Reason: Sore Throat Stop: 02/09/19 08:29 Miscellaneous (Remove Nicoderm Patch) 1 ea N/A DAILY@2100 [facility] Stop: 02/09/19 20:59 Last Admin: 01/25/19 21:23 Dose: Not Given Documented by: Nicotine (Nicoderm Cq) 21 mg TD QAM [facility] Stop: 02/09/19 08:59 Last Admin: 01/26/19 09:24 Dose: Not Given Documented by: Nicotine Polacrilex (Nicorette 2mg) 1 piece MT UD PRN PRN Reason: Nicotine Withdrawal Stop: 02/09/19 08:34 Last Admin: 01/24/19 17:57 Dose: 1 piece Documented by: Sodium Chloride (Cameron Nasal) 1 - 2 sprays NA PRN PRN PRN Reason: Nasal Dryness/Congestion Stop: 02/09/19 08:34 Post Discharge Appointments Primary Care Physician Name Of Family Doctor: Denies Psychiatrist Name of Psychiatrist: [facility] Anuradha Ramírez for the assessment (Important! Next injection due 02/16) Psychiatrist's Date of Appointment with Psychiatrist: 01/30/19 Time of Appointment with Psychiatrist: 9:00 a.m. Psychiatric Appointment Comment: [address] [facility], [place] [address] Therapist Name of Therapist: Denies Architectural Draftsperson Name of Architectural Draftsperson: [employer] - Bill Phone Number for Architectural Draftsperson: [phone] Case Management Appointment Comment: [address] [facility], [address], [place], [place] Contact Information Discharge Discharge [address]: [address] [place] [address], [place] [address] CPT Code CPT Code 00699 (1) Schizophrenia Schizophrenia type: paranoid schizophrenia Qualified Code(s): F20.0 - Paranoid schizophrenia
[2019-01-26] MEDS: LORazepam 0.5 MG TAB PO PRN (17:33)
[2019-01-26] MEDS: ACETAMINOPHEN 325 MG TAB PO PRN (17:33)
[2019-01-27] MEDS: ACETAMINOPHEN 325 MG TAB PO PRN (09:17)
[2019-01-27] MEDS: LORazepam 0.5 MG TAB PO PRN (09:17)
[2019-01-27] MEDS: NICOTINE 21 MG/24 HR TDSY TD SCH (09:18)
--- NOTE | 2019-01-27 14:37 | Psychiatric Progress Note ---
Date of Service January 27, 2019 Impression / Recommendations Impression Current plan is for discharge on 01/29/2019 with conversion to a 304 outpatient commitment. It is highly unlikely that ongoing inpatient psychiatric admission at this level of care would be able to fully mitigate further risks of antisocial behaviors, which innately cause patient to be at higher risk of harm to self or others when compared to the general population. There are multiple concerns with patient being discharged without an active 304 outpatient commitment, given his history of medication noncompliance. There is also concern about discharging the patient to a situation where he will not be supervised in some capacity, requiring extra time to coordinate appropriate discharge plans. We have completed medication adjustments to target psychiatric symptoms, which are continuing but reported to be less distressing for the patient. We will attempt to continue to target other risk factors during the remainder of his stay. (1) Schizophrenia: 12/14 -patient is a poor historian, but mother provides historical information. 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 For now we will collect psychosis not otherwise specified. -Patient is refusing to sign releases for previous outpatient providers in [place], and staff contacted them but they refused to provide any information without a signed release. -Medically necessary private room due to psychosis, erratic and disorganized behavior, history of violence, and aggressive behavior and threats to harm others here in the hospital. -Start haloperidol 5 mg twice daily, as patient has a previous good response to Haldol Decanoate and clozapine. Recommend medications over objection once he is on a 303 involuntary commitment and has been seen by a second physician, as he has severe psychotic symptoms which are preventing him from accurately interpreting reality, influencing his behavior, and placing him at risk of harm to both himself and others as he has been acting on his delusions, experiencing auditory and visual 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, paranoia, engaging in unsafe behaviors including driving when he does not have a license or the knowledge to do so, abusing substances, and has been threatening towards others. He demonstrates no insight into his condition, but available information indicates response to treatment with antipsychotic medications in the past. -Medically necessary private room due to psychosis, aggressive behavior, and threats to harm others. -We will need to check fasting lipid profile and glucose once he is cooperative. -Excused from groups from the time being until able to participate appropriately. -Refusing to sign releases for parents, but mother is petitioner, so can inform her of the 303 hearing. 12/15 -The patient did accept a single dose of lorazepam this morning, and did seem to be somewhat more calm. He was mildly labile during his involuntary commitment hearing this morning, but managed to maintain control and was not aggressive during the hearing or upon learning that he had been retained by the precinct commanding officer. Accordingly, we will continue to offer him lorazepam, since this medication in his case does not seem to be disinhibiting and, at least today, appeared to have helped him manage angry impulses during his involuntary commitment hearing. -The treatment team and I agree that, if possible, we would like to convince the patient to voluntarily take oral medications. Reports are that this morning he came close to taking oral haloperidol, but at the last minute declined. He is telling us that he will consistently refused medications, but our hope is that as we are able to gain his trust he will become more cooperative. We will continue to try to convince the patient to take oral haloperidol, but if this is unsuccessful we will seek two physician approval of medication over objection and give Haldol 5 mg IM BID. 12/16--tolerating Haldol, titrate to 10 mg BID. 12/18 - Continue haldol 10 mg bid - Continue discussion about LAMA - Encourage better sleep hygiene, staying awake in the day to promote sleep at night. 12/19 - Patient allowed labs to be drawn. FBS 93, FLP WNL with the exception of triglycerides of 186. Counseled to avoid fatty red meats, saturated fats. 12/20 -Again discussed the recommendations for long-acting injectable antipsychotic medication with the patient, which he initially declined because he said medications are poison. He has a meeting with his family this afternoon, and I will order the first loading dose of Haldol Decanoate 50 mg IM to be administered this afternoon, and if he is unwilling to take it, we will likely need to proceed with medications over objection tomorrow. We will try to encourage him to accept the intervention, as he reportedly did fairly well on this medication in the past. 12/21 -proceed with medications over objection: Haldol Decanoate 100 mg IM today, and Haldol 10 mg IM for refusal of oral Haldol. He will need 100-200 mg of Haldol Decanoate every 4 weeks based on his current oral dose, so will continue oral haloperidol for now until we can monitor response to the decanoate. 12/22 -the patient received Haldol Decanoate intramuscularly today, as a medication over objection. He tolerated the injection well, and today tells me that he "feels pretty good." -Today, the patient's associations seemed to be fairly tight on examination. He tends to be somewhat concrete in his thinking, but, as above, he did seem able to understand our rationale for continuing inpatient treatment at this point. 12/23 - tolerating halol dec w/o EPS or other complaints. will need to consider reduction of oral dose in approx 1 week. 12/24 - pt remains less acutely behaviorally disturbed since Haldol dec injection last however evidenced mild acting out when physically uncomfortable today - will add standing docusate 100mg po qhs and encourage oral hydration today for complaint of hard stool - meeting / [facility] services tomorrow to explore dispo options 12/25 - Increase in irritability - Planning meeting held with [facility]: possibility for CRR vs state hospital - Continue current meds and encourage prns 12/26 - 304 granted. Meeting with [facility], patient and parents held yesterday: parents confirmed he cannot return home. Treatment team and [facility] recommends state hospitalization, as patient not appropriate for CRR placement due to severity of symptoms and unwillingness for outpatient treatment and medications. 12/27 - Continue current medication regimen - Orders placed for necessary EKG, TB skin test to accompany [facility] referral - Place on high elopement precautions last evening due to suspicious loitering at the entryway of the unit - Reviewed records from [facility] - previous diagnoses were schizoaffective disorder and substance abuse 12/28 - Continue current medication regimen - EKG and PPD completed yesterday - PPD will need read on 12/30 12/29 -Add clozapine 12.5 mg BID and increase as tolerated by 25 mg per day to a dose of 300 mg daily (in two divided dosages, or all at bedtime).' 12/30 -titrating clozapine to 12.5 am and 25mg hs for 12/30 with plan to increase to 25mg bid on 12/31 and likely further titration if tolerating -maintained Haldol decanoate and Haldol po unchanged for now, with consideration of weaning Haldol po dose if clozapine is effective ,, although pt appears to have history of both Haldol forms being rx'd while on past clozapine med trial. Pt has been observed by staff to be improving as obtaining medication of haldol (including the immediate IM doses) 12/31 close monitoring for checking, continue plan above for IM Haldol over objection if checking haldol scheduled doses. Maintain clozapine dosing plan for now with potential re-considering clozapine plan if compklaince issues are occuring. Consider further titration of haldol decanoate as appropaite. 01/01 - Patient refusing Clozaril. Will leave in place, but not force meds over objection for refusal - Increase Haldol to 10 mg AM and 15 mg HS, with meds over objection for refusal - Continue MNPR due to irritability and hx of violence 01/02 -continue oral haloperidol 10 mg every morning and 15 mg at bedtime (moved to later time to try to minimize sedation/spending excessive time in bed during the day), and Haldol decanoate, next injection due 01/19/2019. Continue Lorazepam as needed. -He continues to refuse clozapine. 01/03 - Continue current meds and plan - Continue MNPR in deference to history of violence toward others. 01/04 - Continue current meds and plan - Meeting scheduled with the [facility] to discuss disposition 01/05 - Change pills to liquid due to cheeking - Encourage patient to be out of bed and participating in his treatment - Planning meeting scheduled with the [facility] for next Saturday 01/06 -Patient agrees to a second Haldol Decanoate injection, 100 mg, with the hopes that we can taper him off oral haloperidol given his poor compliance. He has been on 25 mg p.o. daily, which is the equivalent of an initial dose of 500 mg decanoate (per UpToDate, dose of oral haloperidol > 10 mg and high risk of relapse, initiate dose at 20 times the daily oral dose). He got his initial Haldol Decanoate 100 mg on 12/22/2018. He will be due for his next injection on 01/19/2019, currently ordered for 200 mg, but may need to consider a higher dose given noncompliance with oral medication. Maintenance doses are typically 50- 200 mg. Will continue oral haloperidol liquid 10 mg every morning, but discontinue the 15 mg at bedtime dose. Oral haloperidol can be tapered over the period of the first 3 decanoate shots (60-90 days) depending on response. -Continue clozapine but decrease to 25 mg daily, as he has not been taking it, and continue to encourage him to try it, as it was reportedly beneficial in the past and stabilized him sufficiently to be discharged from the [facility] hospital. -Continue as needed medications (Lorazepam, benztropine, haloperidol, and hydroxyzine). 01/07 -continue current medications and plan. 01/08 - Continue current meds and plan - Diversion meeting with the [facility] scheduled for tomorrow. 01/09 -continue private room given antisocial behavior/stealing. Meeting held with the [facility], who do not feel he is appropriate for CRR placement and support [facility] hospitalization. We have not yet received acceptance from [facility]. -Staff to search room daily and remove contraband, restrict patient's ability to keep items in his room due to repeated stealing and having access to items that could potentially be harmful, such as a large amount of hand machine presser. 01/10 -continue current plan. Coordinate with the [facility] hospital. 01/11 - Continue current plan, awaiting acceptance and bed date from the [facility] - Although this is preferred plan, will need to arrange alternative options for appropriate discharge should bed date surpass ongoing criteria for inpatient admission 01/12 - Continue haloperidol 10mg qAM with scheduled injections of haloperidol decanoate - Given significant period of refusing scheduled clozapine - will cancel the medication and scheduled CBC blood draws - Awaiting acceptance to the [facility] and projected bed date - Continuing to work with [facility] resources should alternative arrangements be needed 01/15 - Continue current medication and treatment plan - On line of sight, MNPR, and high elopement precautions due to ongoing antisocial behaviors 01/16 - Continue current medication and treatment plan - Consider alternative housing options, boarding home or personal custodial to be explored 01/17 -continue current medications and plan. 01/19 - Continue current medication regimen - Meeting with architectural representative from [facility] today to explore alternative discharge plans] 01/20 haldol liquid po doses stopped, decanote dosing 300mg IM every 4 weeks, next due 02/16/1901/21 -maintained treatment plan unchanged 01/22 -continue exploration of diversion options, coordinate with [facility] and [facility]. Social work has discussed the possibility of diversion with the patient's mother who is his rep payee. 01/23 - Continue current medication regimen - Received confirmation that patient has been accepted at [facility] boarding home at discharge 01/24 - Continue current treatment plan unchanged 01/25 - Continue current treatment plan 01/26 - Continue current medication regimen and treatment plan - Anticipating activation of diversionary plan with pending discharge to [facility] on Tuesday - Next injection of Haldol Decanoate 300mg IM scheduled for 02/16/19, here on unit. Will communicate schedule with outpatient providers and pillowcase maker. 01/27 - will order weight with next vitals - plan for d/c to [facility] Tuesday (2) Noncompliance with medications: 12/14 -stopped his medications 6 months ago and has decompensated since. Would benefit from a long-acting injectable, and either long-term inpatient treatment at the [facility] or involuntary outpatient treatment.. 12/15 -The patient's psychosis and severely impaired insight seem to be making him and accessible to reason, regarding the essential importance of psychiatric medications. There is a past history of favorable response to haloperidol as well as to clozapine. It is agreed that the patient would in all likelihood benefit from a long-acting injectable antipsychotic medication, given his history of recurrent medication nonadherence. 12/16--currently taking PO for a few doses, is on extended involuntary commitment and clearly ongoing schizophrenia which will fail to improve for him to be able to provide self-care without ongoing treatments on inpatient unit and medications over objection. Without antipsychotic medication he is at significant risk of /serious disability and a danger to himself/others. Dr. Srinivasan could provide second opinion if he refuses PO med. 12/18- Patient refusing to consider LAMA at this time. Will continue to encourage 12/21 -patient continues to refuse Haldol Decanoate, and is now also refusing oral Haldol. We will proceed with medications over objection, as he has a diagnosis of primary thought disorder, has benefited from Haldol Decanoate in the past, he is actively delusional and is refusing medications due to psychotic thought processes, and is at risk of harm to both himself and others if he remains untreated. He has a significant history of violence tied to his delusio ns, and it will be important to get his symptoms adequately managed to decrease the risk of violence towards others here in the hospital. 12/22 -medication adherence is most certainly going issue with this patient. We are recommending the continued use of Depo forms of antipsychotic medications, but, in the past, the patient has simply refused to return to the office of the healthcare professional who is administering the sectionas was the case last year when, after doing reasonably well, he stopped going for treatment, and stopped excepting medications. For this reason, we are carefully looking for a supportive living setting for this patient, preferably one that has the resources necessary to assist the resistant, not adherent to patient. 12/24 - remains better compliant with PO meds 12/25 - Takes meds when he thinks he needs them, but voiced some question about taking anything regularly after discharge. 12/29 -the patient refused a dose of haloperidol yesterday and received halo peridol 10 mg intramuscularly over objection from disease no holes were required and the patient was cooperative with the injection closed with disease. Afterwards, he wondered out loud why he had refused the medication, knowing that he would get it "one way or the other." Because the patient seemed to have responded well, in terms of his disorganized thinking, to the intramuscular dose of haloperidol, there has been some discussion in the team regarding the question of "cheeking" his oral medications. However, the explanation may be that haloperidol 10 mg IM is more potent than orally. In any event, today the patient commits to continued adherence with his medications as he acknowledges that he does feel that they have been helpful to him. 12/31 -potential signs of non compliance 12/30 and 12/31, consider further titration of haldol deaconate as appropriate to help ensure as full of dose being obtained as possible. maintained plan of haldol IM injections for non compliance of haldol po doses 01/05- Switch Haldol to liquid due to cheeking. 01/06 -second dose of Haldol Decanoate as above. Will taper off of oral Haldol over the next 30-60 days, and ideally maintain him on injectable medication given his history of cheeking and noncompliance with oral medication. He continues to refuse clozapine, could consider the addition of an injectable atypical antipsychotic if Haldol Decanoate is insufficient to control symptoms. 01/09 -taking Haldol liquid, but refusing clozapine. Meeting help with the county to discuss potential diversion options, during which patient was delusio nal and demonstrated very poor insight. He continues to state he would not take medications after discharge. 01/12 - Given consistent refusal of scheduled clozapine since its initial administration, will discontinue scheduled dose as well as scheduled blood draws for CBCs 01/20 - haldol now decanoate IM only (3) Substance abuse: 12/14 -patient is not forthcoming, but mother reports he has been abusing alcohol, cough syrup, diphenhydramine, and likely other substances. We will monitor for withdrawal symptoms, and as his psychosis improves, will provide psychoeducation about the risks of substance abuse and recommendations for abstinence. -Avoid controlled substances given high risk of abuse/misuse/negative outcomes. 12/15 -It is recognized that the patient has an extensive history of abusing chemical substances, and it is generally agreed that use of controlled substances does pose significant risk of abuse and other negative outcomes in the long-term. However, the patient's irritability and unwillingness to cooperate with essential medications, such as haloperidol, as well as his history of physical aggression towards others, may be mitigated by the temporary use of a benzodiazepine. Today, a single dose of lorazepam seems to have been effective in helping the patient maintain composure during an involuntary commitment hearing that did not go in his favor, and staff have noticed that he has been somewhat more cooperative today, possibly in response to the dose of lorazepam. Accordingly, staff will continue to offer the patient as needed lorazepam. 12/21 -admission drug screen was positive for benzodiazepines, with significantly elevated temazepam (> 2000) and elevated oxazepam levels. Although he denied taking benzodiazepines prior to admission, he clearly was accessing them somehow. 12/22 -the patient is able to give what may be referred to as "lip service" to the concept of abstinence from drugs of abuse, but he seems to have little or no insight into the risks associated with his abuse of mood altering chemical substances, particularly within the context of his psychiatric illness. Again, a whole will be to identify an aftercare placement that we will be able to monitor him more assiduously for access to abusable chemical substances, including prescription medications, alcohol, and other drugs of abuse. 01/22 -patient has been requesting and receiving Lorazepam 0.5 mg 1-2 times daily. We will decrease this to a maximum of once daily, as it should not be continued outside of the hospital given his substance abuse issues, and it may be contributing to sedation as he spends much of his time in bed. (4) Antisocial personality disorder: 12/14 -extensive, lifelong history provided by adoptive mother which reveals a pervasive pattern of disregard for and violation of the rights of others which started at age 8 or earlier, failure to conform to social norms with respect to lawful behaviors as indicated by repeatedly performing acts that are grounds for arrest, deceitfulness, impulsivity and failure to plan ahead, irritability and aggressiveness, reckless disregard for safety of self and others, consistent irresponsibility, and lack of remorse. 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 -Reviewed expectations with respect to behavior on the unit. 12/15 -The patient's history of antisocial behavior is noted, and antisocial personality will not be a focus of treatment during this hospitalization. However, the record indicates that the patient's antisocial behaviors, which are lifelong, are mitigated to some extent when he is being successfully treated for his psychotic disorder. Accordingly, the approach will be to address his antisocial behaviors by focusing on addressing his psychosis. 12/22 -The patient's long-standing history of antisocial behaviorbehavior which reportedly predates the onset of his symptoms of schizophreniahave not been a focus of treatment and are unlikely to change. Careful monitoring, diversion, containment to the degree possible, to containment of the most appropriate interventions for this problem. 01/11 - Pt made aware again of unit expectations. With evidence of patient stealing keys and causing damage to room items - he remains on a medically necessary private room. His room is to be searched twice daily to ensure any stolen, non-essential, or potentially hazardous items are not being accumulated to the point of causing potential harm. Continue to enforce clear boundaries. 01/15 - Line of sight, high elopement precautions, and MNPR due to attempts to elope and repeatedly stealing and hiding items on the unit. Stole another patient's liquid medication off the med cart in the nurses' station and took 80- 100mg hydroxyzine, hid liquid citalopram in his room. 01/25 - More interactive on the unit, associating with peers. Remains on line of sight and MNPR. 01/27 - no acute behaviors Inventory Assets Strengths: Good physical health. Able to form alliances with certain peers. Concerned and supportive parents. Needs: Continued adherence with psychiatric medications, compliance with outpatient treatment, engagement in treatment, sobriety Risk Factors Assessment Male: Yes : Yes Do You Have Access To A Gun?: No Health Problems: Yes Mental Health Diagnoses: Yes Substance Use Disorders: Yes Previous Attempt: No Previous Psychiatric Hospitalization: Yes Hopelessness: No Smoker: Yes Protective Factors Assessment Jainism Beliefs: No : No Responsible for Young Children: No Employed: No Stable Relationships: No Supportive Family: Yes Good Rapport with Provider: No Absence of Any Risk Factors Above: No Interval History Identifying Information APRIL GONZALEZ is a 43-year-old M who lives in [place] with his parents, has a history of a psychotic disorder (specific diagnosis not yet known, but history of multiple previous hospitalizations including a 1 year [facility] hospitalization in [place]), and was admitted on 12/14/18 03:41 on a 302 involuntary commitment for psychosis, treatment noncompliance, and erratic, unsafe behavior. He is on a 304 involuntary commitment as of 12/26/2018. Chief Complaint "I'm being discharged". Review of Systems Sleep Information Total Hours of Sleep: 6 Sleep Comments: pt appeared to sleep 2.75 hrs during evening shift. pt on q-15 minute checks. pt continue with "line of sight" during the night. Meal Information Percent Meal Consumed - Breakfast: 100 Percent Meal Consumed - Lunch: 100 Percent Meal Consumed - Dinner: 100 Nutrition Comment: per meal record Subjective Subjective Patient was seen & assessed and interval progress reviewed with Treatment Team. No acute events overnight. Patient scheduled for discharge to boarding home on Tuesday with plan for outpatient 304 commitment. Patient denies acute concerns today apart from concern for weight gain which he attributes to Haldol. He denies increased appetite. States he cannot exercise because of his bone disease. Indicates eagerness for discharge. Unable to identify any concerns associated with pending discharge. Reports mood as "good" today Physical Exam Psychiatric Orientation: cooperative Apperance: appropriately dressed and appeared stated age Eye Contact: good eye contact Motor Behavior: no abnormal motor movements; n akathisia and n tremor Speech: no pressured speech Affect: + blunted affect Mood: no depressed mood Thought Process: + concrete thought process Thought Content: not paranoid Suicidal Thoughts: denies suicidal thoughts Homicidal Thoughts: denies homicidal thoughts Insight: + limited insight Judgement: + limited judgement Vital Signs (Past 24 Hours) Last Vital Signs Temp 36.7 C 01/24/19 10:54 Pulse 85 01/24/19 10:54 Resp 16 01/24/19 10:54 BP 127/77 01/24/19 10:54 Pulse Ox 97 12/14/18 03:38 Results & Data Current Inpatient Medications Current Inpatient Medications: Current Inpatient Medications Acetaminophen (Tylenol) 650 mg PO Q4H PRN PRN Reason: Headache or Minor Fever Stop: 02/09/19 08:29 Last Admin: 01/27/19 09:17 Dose: 650 mg Documented by: Al Hydrox/Mg Hydrox/Simethicone (Maalox) 30 ml PO Q4H PRN PRN Reason: GI Upset Stop: 02/09/19 08:29 Benztropine Mesylate (Cogentin) 1 mg PO BID PRN PRN Reason: akathisia Stop: 02/09/19 08:29 Last Admin: 01/21/19 09:43 Dose: 1 mg Documented by: Bismuth Subsalicylate (Kaopectate) 15 ml PO PRN PRN PRN Reason: Loose Stool Stop: 02/09/19 08:29 Docusate Sodium (Colace) 100 mg PO HS PRN PRN Reason: constipation Stop: 02/09/19 08:29 Haloperidol Decanoate (Haldol Decanoate) 300 mg IM ONE ONE Stop: 02/16/19 15:08 Haloperidol Lactate (Haldol Lactate) 10 mg PO Q4H PRN PRN Reason: Psychosis or agitation Stop: 02/09/19 08:29 Haloperidol Lactate (Haldol) 10 mg IM Q4 PRN PRN Reason: psychosis or agitation Stop: 02/09/19 08:29 Lorazepam (Ativan) 0.5 mg PO DAILY PRN PRN Reason: Agitation Stop: 02/08/19 08:34 Last Admin: 01/27/19 09:17 Dose: 0.5 mg Documented by: Magnesium Hydroxide (Milk Of Magnesia) 30 ml PO DAILY PRN PRN Reason: Heartburn Stop: 02/09/19 08:29 Menthol (Nice) 1 be BUCCAL Q2H PRN PRN Reason: Sore Throat Stop: 02/09/19 08:29 Miscellaneous (Remove Nicoderm Patch) 1 ea N/A DAILY@2100 KELLY Stop: 02/09/19 20:59 Last Admin: 01/26/19 20:34 Dose: Not Given Documented by: Nicotine (Nicoderm Cq) 21 mg TD QAM KELLY Stop: 02/09/19 08:59 Last Admin: 01/27/19 09:18 Dose: Not Given Documented by: Nicotine Polacrilex (Nicorette 2mg) 1 piece MT UD PRN PRN Reason: Nicotine Withdrawal Stop: 02/09/19 08:34 Last Admin: 01/24/19 17:57 Dose: 1 piece Documented by: Sodium Chloride (Travis Nasal) 1 - 2 sprays NA PRN PRN PRN Reason: Nasal Dryness/Congestion Stop: 02/09/19 08:34 Post Discharge Appointments Primary Care Physician Name Of Family Doctor: No current PCP, recommend that you get one in the area Psychiatrist Name of Psychiatrist: [facility] Anuradha Ramírez for the assessment (Important! Next injection due 02/16) Psychiatrist's Date of Appointment with Psychiatrist: 01/30/19 Time of Appointment with Psychiatrist: 9:00 a.m. Psychiatric Appointment Comment: [address] [facility], [place] [address] Therapist Name of Therapist: Juan Antonioies Special Service Officer Name of Special Service Officer: [employer] () Phone Number for Special Service Officer: [phone] Case Management Appointment Comment: [address] [facility], [address], [place], [place] Contact Information Discharge Discharge Address: [address] [place] [address], [place] [address] CPT Code CPT Code 56516 (1) Schizophrenia Schizophrenia type: paranoid schizophrenia Qualified Code(s): F20.0 - Paranoid schizophrenia
[2019-01-28] MEDS: NICOTINE 21 MG/24 HR TDSY TD SCH (08:50)
--- NOTE | 2019-01-28 10:41 | Psychiatric Progress Note ---
Date of Service January 28, 2019 Impression / Recommendations Impression Clinical status remains stable. Plan is for discharge on 01/29/2019 with conversion to a 304 outpatient commitment. (1) Schizophrenia: 12/14 -patient is a poor historian, but mother provides historical information. 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 For now we will collect psychosis not otherwise specified. -Patient is refusing to sign releases for previous outpatient providers in [place], and staff contacted them but they refused to provide any information without a signed release. -Medically necessary private room due to psychosis, erratic and disorganized behavior, history of violence, and aggressive behavior and threats to harm others here in the hospital. -Start haloperidol 5 mg twice daily, as patient has a previous good response to Haldol Decanoate and clozapine. Recommend medications over objection once he is on a 303 involuntary commitment and has been seen by a second physician, as he has severe psychotic symptoms which are preventing him from accurately interpreting reality, influencing his behavior, and placing him at risk of harm to both himself and others as he has been acting on his delusions, experiencing auditory and visual 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, paranoia, engaging in unsafe behaviors including driving when he does not have a license or the knowledge to do so, abusing substances, and has been threatening towards others. He demonstrates no insight into his condition, but available information indicates response to treatment with antipsychotic medications in the past. -Medically necessary private room due to psychosis, aggressive behavior, and threats to harm others. -We will need to check fasting lipid profile and glucose once he is cooperative. -Excused from groups from the time being until able to participate appropriately. -Refusing to sign releases for parents, but mother is petitioner, so can inform her of the 303 hearing. 12/15 -The patient did accept a single dose of lorazepam this morning, and did seem to be somewhat more calm. He was mildly labile during his involuntary commitment hearing this morning, but managed to maintain control and was not aggressive during the hearing or upon learning that he had been retained by the senior grants officer. Accordingly, we will continue to offer him lorazepam, since this medication in his case does not seem to be disinhibiting and, at least today, appeared to have helped him manage angry impulses during his involuntary commitment hearing. -The treatment team and I agree that, if possible, we would like to convince the patient to voluntarily take oral medications. Reports are that this morning he came close to taking oral haloperidol, but at the last minute declined. He is telling us that he will consistently refused medications, but our hope is that as we are able to gain his trust he will become more cooperative. We will continue to try to convince the patient to take oral haloperidol, but if this is unsuccessful we will seek two physician approval of medication over objection and give Haldol 5 mg IM BID. 12/16--tolerating Haldol, titrate to 10 mg BID. 12/18 - Continue haldol 10 mg bid - Continue discussion about LAMA - Encourage better sleep hygiene, staying awake in the day to promote sleep at night. 12/19 - Patient allowed labs to be drawn. FBS 93, FLP WNL with the exception of triglycerides of 186. Counseled to avoid fatty red meats, saturated fats. 12/20 -Again discussed the recommendations for long-acting injectable antipsychotic medication with the patient, which he initially declined because he said medications are poison. He has a meeting with his family this afternoon, and I will order the first loading dose of Haldol Decanoate 50 mg IM to be ad ministered this afternoon, and if he is unwilling to take it, we will likely need to proceed with medications over objection tomorrow. We will try to encourage him to accept the intervention, as he reportedly did fairly well on this medication in the past. 12/21 -proceed with medications over objection: Haldol Decanoate 100 mg IM today, and Haldol 10 mg IM for refusal of oral Haldol. He will need 100-200 mg of Haldol Decanoate every 4 weeks based on his current oral dose, so will continue oral haloperidol for now until we can monitor response to the decanoate. 12/22 -the patient received Haldol Decanoate intramuscularly today, as a medication over objection. He tolerated the injection well, and today tells me that he "feels pretty good." -Today, the patient's associations seemed to be fairly tight on examination. He tends to be somewhat concrete in his thinking, but, as above, he did seem able to understand our rationale for continuing inpatient treatment at this point. 12/23 - tolerating halol dec w/o EPS or other complaints. will need to consider reduction of oral dose in approx 1 week. 12/24 - pt remains less acutely behaviorally disturbed since Haldol dec injection last however evidenced mild acting out when physically uncomfortable today - will add standing docusate 100mg po qhs and encourage oral hydration today for complaint of hard stool - meeting / [facility] services tomorrow to explore dispo options 12/25 - Increase in irritability - Planning meeting held with [facility]: possibility for CRR vs state hospital - Continue current meds and encourage prns 12/26 - 304 granted. Meeting with [facility], patient and parents held yesterday: parents confirmed he cannot return home. Treatment team and [facility] recommends state hospitalization, as patient not appropriate for CRR placement due to severity of symptoms and unwillingness for outpatient treatment and medications. 12/27 - Continue current medication regimen - Orders placed for necessary EKG, TB skin test to accompany [place] referral - Place on high elopement precautions last evening due to suspicious loitering at the entryway of the unit - Reviewed records from [place] [facility] - previous diagnoses were schizoaffective disorder and substance abuse 12/28 - Continue current medication regimen - EKG and PPD completed yesterday - PPD will need read on 12/30 12/29 -Add clozapine 12.5 mg BID and increase as tolerated by 25 mg per day to a dose of 300 mg daily (in two divided dosages, or all at bedtime).' 12/30 -titrating clozapine to 12.5 am and 25mg hs for 12/30 with plan to increase to 25mg bid on 12/31 and likely further titration if tolerating -maintained Haldol decanoate and Haldol po unchanged for now, with consideration of weaning Haldol po dose if clozapine is effective ,, although pt appears to have history of both Haldol forms being rx'd while on past clozapine med trial. Pt has been observed by staff to be improving as obtaining medication of haldol (including the immediate IM doses) 12/31 close monitoring for checking, continue plan above for IM Haldol over objection if checking haldol scheduled doses. Maintain clozapine dosing plan for now with potential re-considering clozapine plan if compklaince issues are occuring. Consider further titration of haldol decanoate as appropaite. 01/01 - Patient refusing Clozaril. Will leave in place, but not force meds over objection for refusal - Increase Haldol to 10 mg AM and 15 mg HS, with meds over objection for refusal - Continue MNPR due to irritability and hx of violence 01/02 -continue oral haloperidol 10 mg every morning and 15 mg at bedtime (moved to later time to try to minimize sedation/spending excessive time in bed during the day), and Haldol decanoate, next injection due 01/19/2019. Continue Lorazepam as needed. -He continues to refuse clozapine. 01/03 - Continue current meds and plan - Continue MNPR in deference to history of violence toward others. 01/04 - Continue current meds and plan - Meeting scheduled with the [facility] to discuss disposition 01/05 - Change pills to liquid due to cheeking - Encourage patient to be out of bed and participating in his treatment - Planning meeting scheduled with the [facility] for next Saturday 01/06 -Patient agrees to a second Haldol Decanoate injection, 100 mg, with the hopes that we can taper him off oral haloperidol given his poor compliance. He has been on 25 mg p.o. daily, which is the equivalent of an initial dose of 500 mg decanoate (per UpToDate, dose of oral haloperidol > 10 mg and high risk of relapse, initiate dose at 20 times the daily oral dose). He got his initial Haldol Decanoate 100 mg on 12/22/2018. He will be due for his next injection on 01/19/2019, currently ordered for 200 mg, but may need to consider a higher dose given noncompliance with oral medication. Maintenance doses are typically 50- 200 mg. Will continue oral haloperidol liquid 10 mg every morning, but discontinue the 15 mg at bedtime dose. Oral haloperidol can be tapered over the period of the first 3 decanoate shots (60-90 days) depending on response. -Continue clozapine but decrease to 25 mg daily, as he has not been taking it, and continue to encourage him to try it, as it was reportedly beneficial in the past and stabilized him sufficiently to be discharged from the [facility]. -Continue as needed medications (Lorazepam, benztropine, haloperidol, and hydroxyzine). 01/07 -continue current medications and plan. 01/08 - Continue current meds and plan - Diversion meeting with the [facility] scheduled for tomorrow. 01/09 -continue private room given antisocial behavior/stealing. Meeting held with the [facility], who do not feel he is appropriate for CRR placement and support state hospitalization. We have not yet received acceptance from [facility]. 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 01/10 -continue current plan. Coordinate with the [facility]. 01/11 - Continue current plan, awaiting acceptance and bed date from the [facility] - Although this is preferred plan, will need to arrange alternative options for appropriate discharge should bed date surpass ongoing criteria for inpatient admission 01/12 - Continue haloperidol 10mg qAM with scheduled injections of haloperidol decanoate - Given significant period of refusing scheduled clozapine - will cancel the medication and scheduled CBC blood draws - Awaiting acceptance to the [facility] and projected bed date - Continuing to work with [facility] resources should alternative arrangements be needed 01/15 - Continue current medication and treatment plan - On line of sight, MNPR, and high elopement precautions due to ongoing antisocial behaviors 01/16 - Continue current medication and treatment plan - Consider alternative housing options, boarding home or personal halfway to be explored 01/17 -continue current medications and plan. 01/19 - Continue current medication regimen - Meeting with artist representative from [facility] today to explore alternative discharge plans] 01/20 haldol liquid po doses stopped, decanote dosing 300mg IM every 4 weeks, next due 02/16/1901/21 -maintained treatment plan unchanged 01/22 -continue exploration of diversion options, coordinate with [facility] and [facility]. Social work has discussed the possibility of diversion with the patient's mother who is his rep payee. 01/23 - Continue current medication regimen - Received confirmation that patient has been accepted at [facility] at discharge 01/24 - Continue current treatment plan unchanged 01/25 - Continue current treatment plan 01/26 - Continue current medication regimen and treatment plan - Anticipating activation of diversionary plan with pending discharge to [facility] on Tuesday - Next injection of Haldol Decanoate 300mg IM scheduled for 02/16/19, here on unit. Will communicate schedule with outpatient providers and manager of case management. 01/27 - will order weight with next vitals - plan for d/c to [facility] Sunday 01/28 -No change. Discharge expected tomorrow following conversion of 304 commitment (2) Noncompliance with medications: 12/14 -stopped his medications 6 months ago and has decompensated since. Would benefit from a long-acting injectable, and either long-term inpatient treatment at the [facility] or involuntary outpatient treatment.. 12/15 -The patient's psychosis and severely impaired insight seem to be making him and accessible to reason, regarding the essential importance of psychiatric me dications. There is a past history of favorable response to haloperidol as well as to clozapine. It is agreed that the patient would in all likelihood benefit from a long-acting injectable antipsychotic medication, given his history of recurrent medication nonadherence. 12/16--currently taking PO for a few doses, is on extended involuntary commitment and clearly ongoing schizophrenia which will fail to improve for him to be able to provide self-care without ongoing treatments on inpatient unit and medications over objection. Without antipsychotic medication he is at significant risk of /serious disability and a danger to himself/others. Dr. Srinivasan could provide second opinion if he refuses PO med. 12/18- Patient refusing to consider LAMA at this time. Will continue to encourage 12/21 -patient continues to refuse Haldol Decanoate, and is now also refusing oral Haldol. We will proceed with medications over objection, as he has a diagnosis of primary thought disorder, has benefited from Haldol Decanoate in the past, he is actively delusional and is refusing medications due to psychotic thought processes, and is at risk of harm to both himself and others if he remains untreated. He has a significant history of violence tied to his delusions, and it will be important to get his symptoms adequately managed to decrease the risk of violence towards others here in the hospital. 12/22 -medication adherence is most certainly going issue with this patient. We are recommending the continued use of Depo forms of antipsychotic medications, but, in the past, the patient has simply refused to return to the office of the healthcare professional who is administering the sectionas was the case last year when, after doing reasonably well, he stopped going for treatment, and stopped excepting medications. For this reason, we are carefully looking for a supportive living setting for this patient, preferably one that has the resources necessary to assist the resistant, not adherent to patient. 12/24 - remains better compliant with PO meds 12/25 - Takes meds when he thinks he needs them, but voiced some question about taking anything regularly after discharge. 12/29 -the patient refused a dose of haloperidol yesterday and received haloperidol 10 mg intramuscularly over objection from disease no holes were required and the patient was cooperative with the injection closed with disease. Afterwards, he wondered out loud why he had refused the medication, knowing that he would get it "one way or the other." Because the patient seemed to have responded well, in terms of his disorganized thinking, to the intramuscular dose of haloperidol, there has been some discussion in the team regarding the question of "cheeking" his oral medications. However, the explanation may be that haloperidol 10 mg IM is more potent than orally. In any event, today the patient commits to continued adherence with his medications as he acknowledges that he does feel that they have been helpful to him. 12/31 -potential signs of non compliance 12/30 and 12/31, consider further titration of haldol deaconate as appropriate to help ensure as full of dose being obtained as possible. maintained plan of haldol IM injections for non compliance of haldol po doses 01/05- Switch Haldol to liquid due to cheeking. 01/06 -second dose of Haldol Decanoate as above. Will taper off of oral Haldol over the next 30-60 days, and ideally maintain him on injectable medication given his history of cheeking and noncompliance with oral medication. He continues to refuse clozapine, could consider the addition of an injectable atypical antipsychotic if Haldol Decanoate is insufficient to control symptoms. 01/09 -taking Haldol liquid, but refusing clozapine. Meeting help with the county to discuss potential diversion options, during which patient was delusional and demonstrated very poor insight. He continues to state he would not take medications after discharge. 01/12 - Given consistent refusal of scheduled clozapine since its initial administration, will discontinue scheduled dose as well as scheduled blood draws for CBCs 01/20 - haldol now decanoate IM only (3) Substance abuse: 12/14 -patient is not forthcoming, but mother reports he has been abusing alcohol, cough syrup, diphenhydramine, and likely other substances. We will monitor for withdrawal symptoms, and as his psychosis improves, will provide psychoeducation about the risks of substance abuse and recommendations for abstinence. -Avoid controlled substances given high risk of abuse/misuse/negative outcomes. 12/15 -It is recognized that the patient has an extensive history of abusing chemical substances, and it is generally agreed that use of controlled substances does pose significant risk of abuse and other negative outcomes in the long-term. However, the patient's irritability and unwillingness to cooperate with essential medications, such as haloperidol, as well as his history of physical aggression towards others, may be mitigated by the temporary use of a benzodiazepine. Today, a single dose of lorazepam seems to have been effective in helping the patient maintain composure during an involuntary commitment hearing that did not go in his favor, and staff have noticed that he has been somewhat more cooperative today, possibly in response to the dose of lorazepam. Accordingly, staff will continue to offer the patient as needed lorazepam. 12/21 -admission drug screen was positive for benzodiazepines, with significantly elevated temazepam (> 2000) and elevated oxazepam levels. Although he denied taking benzodiazepines prior to admission, he clearly was accessing them somehow. 12/22 -the patient is able to give what may be referred to as "lip service" to the concept of abstinence from drugs of abuse, but he seems to have little or no insight into the risks associated with his abuse of mood altering chemical substances, particularly within the context of his psychiatric illness. Again, a whole will be to identify an aftercare placement that we will be able to monitor him more assiduously for access to abusable chemical substances, including prescription medications, alcohol, and other drugs of abuse. 01/22 -patient has been requesting and receiving Lorazepam 0.5 mg 1-2 times daily. We will decrease this to a maximum of once daily, as it should not be continued outside of the hospital given his substance abuse issues, and it may be contributing to sedation as he spends much of his time in bed. (4) Antisocial personality disorder: 12/14 -extensive, lifelong history provided by adoptive mother which reveals a pervasive pattern of disregard for and violation of the rights of others which started at age 8 or earlier, failure to conform to social norms with respect to lawful behaviors as indicated by repeatedly performing acts that are grounds for arrest, deceitfulness, impulsivity and failure to plan ahead, irritability and aggressiveness, reckless disregard for safety of self and others, consistent irresponsibility, and lack of remorse. 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 -Reviewed expectations with respect to behavior on the unit. 12/15 -The patient's history of antisocial behavior is noted, and antisocial personality will not be a focus of treatment during this hospitalization. However, the record indicates that the patient's antisocial behaviors, which are lifelong, are mitigated to some extent when he is being successfully treated for his psychotic disorder. Accordingly, the approach will be to address his ant isocial behaviors by focusing on addressing his psychosis. 12/22 -The patient's long-standing history of antisocial behaviorbehavior which reportedly predates the onset of his symptoms of schizophreniahave not been a focus of treatment and are unlikely to change. Careful monitoring, diversion, containment to the degree possible, to containment of the most appropriate interventions for this problem. 01/11 - Pt made aware again of unit expectations. With evidence of patient stealing keys and causing damage to room items - he remains on a medically necessary private room. His room is to be searched twice daily to ensure any stolen, non-essential, or potentially hazardous items are not being accumulated to the point of causing potential harm. Continue to enforce clear boundaries. 01/15 - Line of sight, high elopement precautions, and MNPR due to attempts to elope and repeatedly stealing and hiding items on the unit. Stole another patient's liquid medication off the med cart in the nurses' station and took 80- 100mg hydroxyzine, hid liquid citalopram in his room. 01/25 - More interactive on the unit, associating with peers. Remains on line of sight and MNPR. 01/28 -Patient continues to demonstrate some mild inappropriate behaviors but responding to redirection 01/27 - no acute behaviors Inventory Assets Strengths: Good physical health. Able to form alliances with certain peers. Concerned and supportive parents. Needs: Continued adherence with psychiatric medications, compliance with outpatient treatment, engagement in treatment, sobriety Risk Factors Assessment Male: Yes : Yes Do You Have Access To A Gun?: No Health Problems: Yes Mental Health Diagnoses: Yes Substance Use Disorders: Yes Previous Attempt: No Previous Psychiatric Hospitalization: Yes Hopelessness: No Smoker: Yes Protective Factors Assessment Quaker Beliefs: No : No Responsible for Young Children: No Employed: No Stable Relationships: No Supportive Family: Yes Good Rapport with Provider: No Absence of Any Risk Factors Above: No Interval History Identifying Information APRIL GONZALEZ is a 43-year-old M who lives in [place] with his parents, has a history of a psychotic disorder (specific diagnosis not yet known, but history of multiple previous hospitalizations including a 1 year state hospitalization in [place]), and was admitted on 12/14/18 03:41 on a 302 involuntary commitment for psychosis, treatment noncompliance, and erratic, unsafe behavior. He is on a 304 involuntary commitment as of 12/26/2018. Chief Complaint "Ready to go". Review of Systems Notes Muscle aches Sleep Information Total Hours of Sleep: 6 Sleep Comments: pt appeared to sleep 2.75 hrs during evening shift. pt on q-15 minute checks. pt continue with "line of sight" during the night. Meal Information Percent Meal Consumed - Breakfast: 100 Percent Meal Consumed - Lunch: 100 Percent Meal Consumed - Dinner: 100 Nutrition Comment: per meal record Subjective Subjective Patient was seen & assessed and interval progress reviewed with Treatment Team. Per available staff, no significant interval change overnight. Patient was observed looking into the rooms of other patients yesterday and asked another female patient for her phone number but responded to redirection. Attended groups and did well. He denies concerns on interview this morning. He indicates that he is ready for discharge tomorrow and accepting of disposition. He describes his mood as "good." He denies any specific complaints this mor demond. Physical Exam Psychiatric Orientation: cooperative Apperance: appropriately dressed and + disheveled (Mild) Eye Contact: good eye contact Motor Behavior: steady gait and station Speech: normal rate/rhythm/volume of speech Language simple Calm Good Thought Process: goal directed thought process and + concrete thought process Thought Content: no delusions Suicidal Thoughts: denies suicidal thoughts Homicidal Thoughts: denies homicidal thoughts Insight: + limited insight Judgement: + poor judgement Vital Signs (Past 24 Hours) Last Vital Signs Temp 36.7 C 01/24/19 10:54 Pulse 85 01/24/19 10:54 Resp 16 01/24/19 10:54 BP 127/77 01/24/19 10:54 Pulse Ox 97 12/14/18 03:38 Results & Data Current Inpatient Medications Current Inpatient Medications: Current Inpatient Medications Acetaminophen (Tylenol) 650 mg PO Q4H PRN PRN Reason: Headache or Minor Fever Stop: 02/09/19 08:29 Last Admin: 01/27/19 09:17 Dose: 650 mg Documented by: Al Hydrox/Mg Hydrox/Simethicone (Maalox) 30 ml PO Q4H PRN PRN Reason: GI Upset Stop: 02/09/19 08:29 Benztropine Mesylate (Cogentin) 1 mg PO BID PRN PRN Reason: akathisia Stop: 02/09/19 08:29 Last Admin: 01/21/19 09:43 Dose: 1 mg Documented by: Bismuth Subsalicylate (Kaopectate) 15 ml PO PRN PRN PRN Reason: Loose Stool Stop: 02/09/19 08:29 Docusate Sodium (Colace) 100 mg PO HS PRN PRN Reason: constipation Stop: 02/09/19 08:29 Haloperidol Decanoate (Haldol Decanoate) 300 mg IM ONE ONE Stop: 02/16/19 15:08 Haloperidol Lactate (Haldol Lactate) 10 mg PO Q4H PRN PRN Reason: Psychosis or agitation Stop: 02/09/19 08:29 Haloperidol Lactate (Haldol) 10 mg IM Q4 PRN PRN Reason: psychosis or agitation Stop: 02/09/19 08:29 Lorazepam (Ativan) 0.5 mg PO DAILY PRN PRN Reason: Agitation Stop: 02/08/19 08:34 Last Admin: 01/27/19 09:17 Dose: 0.5 mg Documented by: Magnesium Hydroxide (Milk Of Magnesia) 30 ml PO DAILY PRN PRN Reason: Heartburn Stop: 02/09/19 08:29 Menthol (Nice) 1 be BUCCAL Q2H PRN PRN Reason: Sore Throat Stop: 02/09/19 08:29 Miscellaneous (Remove Nicoderm Patch) 1 ea N/A DAILY@2100 KELLY Stop: 02/09/19 20:59 Last Admin: 01/27/19 20:59 Dose: Not Given Documented by: Nicotine (Nicoderm Cq) 21 mg TD QAM KELLY Stop: 02/09/19 08:59 Last Admin: 01/28/19 08:50 Dose: Not Given Documented by: Nicotine Polacrilex (Nicorette 2mg) 1 piece MT UD PRN PRN Reason: Nicotine Withdrawal Stop: 02/09/19 08:34 Last Admin: 01/24/19 17:57 Dose: 1 piece Documented by: Sodium Chloride (Ethel Nasal) 1 - 2 sprays NA PRN PRN PRN Reason: Nasal Dryness/Congestion Stop: 02/09/19 08:34 Post Discharge Appointments Primary Care Physician Name Of Family Doctor: No current PCP, recommend that you get one in the area Psychiatrist Name of Psychiatrist: [facility] Anuradha Ramírez for the assessment (Important! Next injection due 02/16) Psychiatrist's Date of Appointment with Psychiatrist: 01/30/19 Time of Appointment with Psychiatrist: 9:00 a.m. Psychiatric Appointment Comment: [address] [place] [address] Therapist Name of Therapist: [facility] Name of Assembler Unit: [facility] () Phone Number for As[facility]er Unit: [phone] Case Management Appointment Comment: [address] [facility], [address], [place], [place] Contact Information Discharge Discharge [address]: [address] [place] [id number] CPT Code CPT Code 87446 (1) Schizophrenia Schizophrenia type: paranoid schizophrenia Qualified Code(s): F20.0 - Paranoid schizophrenia
[2019-01-28] MEDS: ACETAMINOPHEN 325 MG TAB PO PRN ×2 (15:47→20:29)
[2019-01-28] MEDS: LORazepam 0.5 MG TAB PO PRN (17:33)
[2019-01-29] MEDS: ACETAMINOPHEN 325 MG TAB PO PRN (04:44)
[2019-01-29] MEDS: NICOTINE 21 MG/24 HR TDSY TD SCH (08:36)
--- NOTE | 2019-01-29 10:06 | Discharge Summary ---
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 (Ecstasy) Screen Neg U OH-Alprazolam Confrm NEGATIVE U Benzodiazepines Scrn Pos H 7-Amino Clonazepam NEGATIVE Ur Nordiazepam Confirm NEGATIVE U OH-ethylflurazepam NEGATIVE U Lorazepam Cnf GC/MS NEGATIVE U Oxazepam Confm GC/MS 730 A Ur Temazepam Confirm >2000 A U OH-Triazolam Confirm NEGATIVE U OH-Midazolam Confirm NEGATIVE Ur Cocaine Metabolite Neg U Marijuana (THC) Screen Neg Ethyl Alcohol mg/dL 12/19/18 12/29/18 01/05/19 07:17 14:37 07:12 WBC 7.44 5.81 RBC 4.93 4.98 Hgb 15.6 15.5 Hct 44.7 44.6 MCV 90.7 89.6 MCH 31.6 31.1 MCHC 34.9 34.8 RDW Std Deviation 44.2 43.2 RDW Coeff of Rubens 13.4 13.3 Plt Count 265 248 MPV 10.0 9.9 Immature Gran % (Auto) 0.4 0.3 Neut % (Auto) 54.5 45.7 Lymph % (Auto) 32.4 42.9 Sierra % (Auto) 9.4 6.2 Eos % (Auto) 3.0 4.6 Baso % (Auto) 0.3 0.3 Immature Gran # (Auto) 0.03 H 0.02 Neut # (Auto) 4.06 2.65 Lymph # (Auto) 2.41 2.49 Sierra # (Auto) 0.70 H 0.36 Eos # (Auto) 0.22 0.27 Baso # (Auto) 0.02 0.02 Sodium Potassium Chloride Carbon Dioxide Anion Gap BUN Creatinine Est Cr Clr Drug Dosing Est GFR ( Amer) Est GFR (Non-Af Amer) BUN/Creatinine Ratio Glucose Fasting Glucose 93 Calcium Total Bilirubin AST ALT Alkaline Phosphatase Total Protein Albumin Globulin Albumin/Globulin Ratio Triglycerides 186 H Cholesterol 178 LDL Cholesterol, Calc 106 VLDL Cholesterol, Calc 37 HDL Cholesterol 35 Cholesterol/HDL Ratio 5 TSH Urine Color Urine Appearance Urine pH Ur Specific Okay Urine Protein Urine Glucose (UA) Urine Ketones Urine Blood Urine Nitrite Urine Bilirubin Urine Urobilinogen Ur Leukocyte Esterase Urine WBC (Auto) Urine RBC (Auto) U Hyaline Cast (Auto) U Epithel Cells (Auto) Urine Bacteria (Auto) Urine Opiates Screen Ur Methadone, Qual Urine Barbiturates Ur Phencyclidine (PCP) U Amphetamin/Meth Scrn MDMA (Ecstasy) Screen U OH-Alprazolam Confrm U Benzodiazepines Scrn 7-Amino Clonazepam Ur Nordiazepam Confirm U OH-ethylflurazepam U Lorazepam Cnf GC/MS U Oxazepam Confm GC/MS Ur Temazepam Confirm U OH-Triazolam Confirm U OH-Midazolam Confirm Ur Cocaine Metabolite U Marijuana (THC) Screen Ethyl Alcohol mg/dL Hospital Course (1) Schizophrenia: 12/14 -patient is a poor historian, but mother provides historical informa tion. 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 For now we will collect psychosis not otherwise specified. -Patient is refusing to sign releases for previous outpatient providers in [place], and staff contacted them but they refused to provide any information without a signed release. -Medically necessary private room due to psychosis, erratic and disorganized behavior, history of violence, and aggressive behavior and threats to harm others here in the hospital. -Start haloperidol 5 mg twice daily, as patient has a previous good response to Haldol Decanoate and clozapine. Recommend medications over objection once he is on a 303 involuntary commitment and has been seen by a second physician, as he has severe psychotic symptoms which are preventing him from accurately interpreting reality, influencing his behavior, and placing him at risk of harm to both himself and others as he has been acting on his delusions, experiencing auditory and visual 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, paranoia, engaging in unsafe behaviors including driving when he does not have a license or the knowledge to do so, abusing substances, and has been threatening towards others. He demonstrates no insight into his condition, but available information indicates response to treatment with antipsychotic medications in the past. -Medically necessary private room due to psychosis, aggressive behavior, and threats to harm others. -We will need to check fasting lipid profile and glucose once he is cooperative. -Excused from groups from the time being until able to participate appropriately. -Refusing to sign releases for parents, but mother is petitioner, so can inform her of the 303 hearing. 12/15 -The patient did accept a single dose of lorazepam this morning, and did seem to be somewhat more calm. He was mildly labile during his involuntary commitment hearing this morning, but managed to maintain control and was not aggressive during the hearing or upon learning that he had been retained by the wool shearing supervisor. Accordingly, we will continue to offer him lorazepam, since this medication in his case does not seem to be disinhibiting and, at least today, appeared to have helped him manage angry impulses during his involuntary commitment hearing. -The treatment team and I agree that, if possible, we would like to convince the patient to voluntarily take oral medications. Reports are that this morning he came close to taking oral haloperidol, but at the last minute declined. He is telling us that he will consistently refused medications, but our hope is that as we are able to gain his trust he will become more cooperative. We will continue to try to convince the patient to take oral haloperidol, but if this is unsuccessful we will seek two physician approval of medication over objection and give Haldol 5 mg IM BID. 12/16--tolerating Haldol, titrate to 10 mg BID. 12/18 - Continue haldol 10 mg bid - Continue discussion about LAMA - Encourage better sleep hygiene, staying awake in the day to promote sleep at night. 12/19 - Patient allowed labs to be drawn. FBS 93, FLP WNL with the exception of triglycerides of 186. Counseled to avoid fatty red meats, saturated fats. 12/20 -Again discussed the recommendations for long-acting injectable antipsychotic medication with the patient, which he initially declined because he said medications are poison. He has a meeting with his family this afternoon, and I will order the first loading dose of Haldol Decanoate 50 mg IM to be administered this afternoon, and if he is unwilling to take it, we will likely need to proceed with medications over objection tomorrow. We will try to encourage him to accept the intervention, as he reportedly did fairly well on this medication in the past. 12/21 -proceed with medications over objection: Haldol Decanoate 100 mg IM today, and Haldol 10 mg IM for refusal of oral Haldol. He will need 100-200 mg of Haldol Decanoate every 4 weeks based on his current oral dose, so will continue oral haloperidol for now until we can monitor response to the decanoate. 12/22 -the patient received Haldol Decanoate intramuscularly today, as a medication over objection. He tolerated the injection well, and today tells me that he "feels pretty good." -Today, the patient's associations seemed to be fairly tight on examination. He tends to be somewhat concrete in his thinking, but, as above, he did seem able to understand our rationale for continuing inpatient treatment at this point. 12/23 - tolerating halol dec w/o EPS or other complaints. will need to consider reduction of oral dose in approx 1 week. 12/24 - pt remains less acutely behaviorally disturbed since Haldol dec injection last however evidenced mild acting out when physically uncomfortable today - will add standing docusate 100mg po qhs and encourage oral hydration today for complaint of hard stool - meeting w/ [facility] services tomorrow to explore dispo options 12/25 - Increase in irritability - Planning meeting held with [facility]: possibility for CRR vs state hospital - Continue current meds and encourage prns 12/26 - 304 granted. Meeting with [facility], patient and parents held yesterday: parents confirmed he cannot return home. Treatment team and [facility] recommends state hospitalization, as patient not appropriate for CRR placement due to severity of symptoms and unwillingness for outpatient treatment and medications. 12/27 - Continue current medication regimen - Orders placed for necessary EKG, TB skin test to accompany [place] referral - Place on high elopement precautions last evening due to suspicious loitering at the entryway of the unit - Reviewed records from [place] [facility] - previous diagnoses were schizoaffective dis order and substance abuse 12/28 - Continue current medication regimen - EKG and PPD completed yesterday - PPD will need read on 12/30 12/29 -Add clozapine 12.5 mg BID and increase as tolerated by 25 mg per day to a dose of 300 mg daily (in two divided dosages, or all at bedtime).' 12/30 -titrating clozapine to 12.5 am and 25mg hs for 12/30 with plan to increase to 25mg bid on 12/31 and likely further titration if tolerating -maintained Haldol decanoate and Haldol po unchanged for now, with consideration of weaning Haldol po dose if clozapine is effective ,, although pt appears to have history of both Haldol forms being rx'd while on past clozapine med trial. Pt has been observed by staff to be improving as obtaining medication of haldol (including the immediate IM doses) 12/31 close monitoring for checking, continue plan above for IM Haldol over objection if checking haldol scheduled doses. Maintain clozapine dosing plan for now with potential re-considering clozapine plan if compklaince issues are occuring. Consider further titration of haldol decanoate as appropaite. 01/01 - Patient refusing Clozaril. Will leave in place, but not force meds over objection for refusal - Increase Haldol to 10 mg AM and 15 mg HS, with meds over objection for refusal - Continue MNPR due to irritability and hx of violence 01/02 -continue oral haloperidol 10 mg every morning and 15 mg at bedtime (moved to later time to try to minimize sedation/spending excessive time in bed during the day), and Haldol decanoate, next injection due 01/19/2019. Continue Lorazepam as needed. -He continues to refuse clozapine. 01/03 - Continue current meds and plan - Continue MNPR in deference to history of violence toward others. 01/04 - Continue current meds and plan - Meeting scheduled with the county to discuss disposition 01/05 - Change pills to liquid due to cheeking - Encourage patient to be out of bed and participating in his treatment - Planning meeting scheduled with the [facility] for next Saturday 01/06 -Patient agrees to a second Haldol Decanoate injection, 100 mg, with the hopes that we can taper him off oral haloperidol given his poor compliance. He has been on 25 mg p.o. daily, which is the equivalent of an initial dose of 500 mg decanoate (per UpToDate, dose of oral haloperidol > 10 mg and high risk of relapse, initiate dose at 20 times the daily oral dose). He got his initial Haldol Decanoate 100 mg on 12/22/2018. He will be due for his next injection on 01/19/2019, currently ordered for 200 mg, but may need to consider a higher dose given noncompliance with oral medication. Maintenance doses are typically 50- 200 mg. Will continue oral haloperidol liquid 10 mg every morning, but discontinue the 15 mg at bedtime dose. Oral haloperidol can be tapered over the period of the first 3 decanoate shots (60-90 days) depending on response. -Continue clozapine but decrease to 25 mg daily, as he has not been taking it, and continue to encourage him to try it, as it was reportedly beneficial in the past and stabilized him sufficiently to be discharged from the [facility]. -Continue as needed medications (Lorazepam, benztropine, haloperidol, and hydroxyzine). 01/07 -continue current medications and plan. 01/08 - Continue current meds and plan - Diversion meeting with the [facility] scheduled for tomorrow. 01/09 -continue private room given antisocial behavior/stealing. Meeting held with the [facility], who do not feel he is appropriate for CRR placement and support state hospitalization. We have not yet received acceptance from [facility]. -Staff to search room daily and remove contraband, restrict patient's ability to keep items in his room due to repeated stealing and having access to items that could potentially be harmful, such as a large amount of hand retail associate. 01/10 -continue current plan. Coordinate with the [facility]. 01/11 - Continue current plan, awaiting acceptance and bed date from the [facility] - Although this is preferred plan, will need to arrange alternative options for appropriate discharge should bed date surpass ongoing criteria for inpatient admission 01/12 - Continue haloperidol 10mg qAM with scheduled injections of haloperidol decanoate - Given significant period of refusing scheduled clozapine - will cancel the medication and scheduled CBC blood draws - Awaiting acceptance to the [facility] hospital and projected bed date - Continuing to work with [facility] resources should alternative arrangements be needed 01/15 - Continue current medication and treatment plan - On line of sight, MNPR, and high elopement precautions due to ongoing antisocial behaviors 01/16 - Continue current medication and treatment plan - Consider alternative housing options, boarding home or personal snf to be explored 01/17 -continue current medications and plan. 01/19 - Continue current medication regimen - Meeting with ambulatory service representative from [place] today to explore al ternative discharge plans] 01/20 haldol liquid po doses stopped, decanote dosing 300mg IM every 4 weeks, next due 02/16/1901/21 -maintained treatment plan unchanged 01/22 -continue exploration of diversion options, coordinate with [place] [facility] and [facility]. Social work has discussed the possibility of diversion with the patient's mother who is his rep payee. 01/23 - Continue current medication regimen - Received confirmation that patient has been accepted at [facility] at discharge 01/24 - Continue current treatment plan unchanged 01/25 - Continue current treatment plan 01/26 - Continue current medication regimen and treatment plan - Anticipating activation of diversionary plan with pending discharge to [place] [facility] on Tuesday - Next injection of Haldol Decanoate 300mg IM scheduled for 02/16/19, here on unit. Will communicate schedule with outpatient providers and counter caser. 01/27 - will order weight with next vitals - plan for d/c to [place] [facility] Sunday 01/28 -No change. Discharge expected tomorrow following conversion of 304 commitment 01/29 -Patient is felt to be at his baseline. There is no evidence of current delusional material and the patient's thought content, and there is also no evidence that he is experiencing perceptual disturbances. His thought processes have become much more organized. He is organized in terms of thinking and behavior, he voices his recognition that he will need to continue in psychiatric treatment, and he commits to follow the rules that are expected of him and his new placement in the community. (2) Noncompliance with medications: 12/14 -stopped his medications 6 months ago and has decompensated since. Would benefit from a long-acting injectable, and either long-term inpatient treatment at the [facility] or involuntary outpatient treatment.. 12/15 -The patient's psychosis and severely impaired insight seem to be making him and accessible to reason, regarding the essential importance of psychiatric medications. There is a past history of favorable response to haloperidol as well as to clozapine. It is agreed that the patient would in all likelihood benefit from a long-acting injectable antipsychotic medication, given his history of recurrent medication nonadherence. 12/16--currently taking PO for a few doses, is on extended involuntary commitment and clearly ongoing schizophrenia which will fail to improve for him to be able to provide self-care without ongoing treatments on inpatient unit and medications over objection. Without antipsychotic medication he is at significant risk of /serious disability and a danger to himself/others. Dr. Srinivasan could provide second opinion if he refuses PO med. 12/18- Patient refusing to consider LAMA at this time. Will continue to encourage 12/21 -patient continues to refuse Haldol Decanoate, and is now also refusing oral Haldol. We will proceed with medications over objection, as he has a diagnosis of primary thought disorder, has benefited from Haldol Decanoate in the past, he is actively delusional and is refusing medications due to psychotic thought processes, and is at risk of harm to both himself and others if he remains untreated. He has a significant history of violence tied to his delusions, and it will be important to get his symptoms adequately managed to decrease the risk of violence towards others here in the hospital. 12/22 -medication adherence is most certainly going issue with this patient. We are recommending the continued use of Depo forms of antipsychotic medications, but, in the past, the patient has simply refused to return to the office of the healthcare professional who is administering the sectionas was the case last year when, after doing reasonably well, he stopped going for treatment, and stopped excepting medications. For this reason, we are carefully looking for a supportive living setting for this patient, preferably one that has the resources necessary to assist the resistant, not adherent to patient. 12/24 - remains better compliant with PO meds 12/25 - Takes meds when he thinks he needs them, but voiced some question about taking anything regularly after discharge. 12/29 -the patient refused a dose of haloperidol yesterday and received haloperidol 10 mg intramuscularly over objection from disease no holes were required and the patient was cooperative with the injection closed with disease. Afterwards, he wondered out loud why he had refused the medication, knowing that he would get it "one way or the other." Because the patient seemed to have responded well, in terms of his disorganized thinking, to the intramuscular dose of haloperidol, there has been some discussion in the team regarding the quest ion of "cheeking" his oral medications. However, the explanation may be that haloperidol 10 mg IM is more potent than orally. In any event, today the patient commits to continued adherence with his medications as he acknowledges that he does feel that they have been helpful to him. 12/31 -potential signs of non compliance 12/30 and 12/31, consider further titration of haldol deaconate as appropriate to help ensure as full of dose being obtained as possible. maintained plan of haldol IM injections for non compliance of haldol po doses 01/05- Switch Haldol to liquid due to cheeking. 01/06 -second dose of Haldol Decanoate as above. Will taper off of oral Haldol over the next 30-60 days, and ideally maintain him on injectable medication given his history of cheeking and noncompliance with oral medication. He continues to refuse clozapine, could consider the addition of an injectable atypical antipsychotic if Haldol Decanoate is insufficient to control symptoms. 01/09 -taking Haldol liquid, but refusing clozapine. Meeting help with the county to discuss potential diversion options, during which patient was delusional and demonstrated very poor insight. He continues to state he would not take medications after discharge. 01/12 - Given consistent refusal of scheduled clozapine since its initial administration, will discontinue scheduled dose as well as scheduled blood draws for CBCs 01/20 - haldol now decanoate IM only 01/29 -we have been able to discontinue oral psychiatric medications and the patient has remained stable on Haldol Decanoate once a month injections. He voices an intent to continue to cooperate with intramuscular injections every 4 weeks of Haldol decanoate, and voices an understanding that this is an important medication to keep him "well and out of the hospital." (3) Substance abuse: 12/14 -patient is not forthcoming, but mother reports he has been abusing alcohol, cough syrup, diphenhydramine, and likely other substances. We will monitor for withdrawal symptoms, and as his psychosis improves, will provide psychoeducation about the risks of substance abuse and recommendations for abstinence. -Avoid controlled substances given high risk of abuse/misuse/negative outcomes. 12/15 -It is recognized that the patient has an extensive history of abusing chemical substances, and it is generally agreed that use of controlled substances does pose significant risk of abuse and other negative outcomes in the long-term. However, the patient's irritability and unwillingness to cooperate with essential medications, such as haloperidol, as well as his history of physical aggression towards others, may be mitigated by the temporary use of a benzodiazepine. Today, a single dose of lorazepam seems to have been effective in helping the patient maintain composure during an involuntary commitment hearing that did not go in his favor, and staff have noticed that he has been somewhat more cooperative today, possibly in response to the dose of lorazepam. Accordingly, staff will continue to offer the patient as needed lorazepam. 12/21 -admission drug screen was positive for benzodiazepines, with significantly elevated temazepam (> 2000) and elevated oxazepam levels. Although he denied taking benzodiazepines prior to admission, he clearly was accessing them somehow. 12/22 -the patient is able to give what may be referred to as "lip service" to the concept of abstinence from drugs of abuse, but he seems to have little or no insight into the risks associated with his abuse of mood altering chemical substances, particularly within the context of his psychiatric illness. Again, a whole will be to identify an aftercare placement that we will be able to monitor him more assiduously for access to abusable chemical substances, including prescription medications, alcohol, and other drugs of abuse. 01/22 -patient has been requesting and receiving Lorazepam 0.5 mg 1-2 times daily. We will decrease this to a maximum of once daily, as it should not be continued outside of the hospital given his substance abuse issues, and it may be contributing to sedation as he spends much of his time in bed 01/29 -given the patient's history of substance misuse, lorazepam was discontinued. The patient was adherent with Haldol Decanoate injections and was otherwise adherent with oral haloperidol until it was discontinued in preparation for discharge and in light of his ongoing improvement. (4) Antisocial personality disorder: 12/14 -extensive, lifelong history provided by adoptive mother which reveals a pervasive pattern of disregard for and violation of the rights of others which started at age 8 or earlier, failure to conform to social norms with respect to lawful behaviors as indicated by repeatedly performing acts that are grounds for arrest, deceitfulness, impulsivity and failure to plan ahead, irritability and aggressiveness, reckless disregard for safety of self and others, consistent irresponsibility, and lack of remorse. 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 -Reviewed expectations with respect to behavior on the unit. 12/15 -The patient's history of antisocial behavior is noted, and antisocial personality will not be a focus of treatment during this hospitalization. However, the record indicates that the patient's antisocial behaviors, which are lifelong, are mitigated to some extent when he is being successfully treated for his psychotic disorder. Accordingly, the approach will be to address his antisocial behaviors by focusing on addressing his psychosis. 12/22 -The patient's long-standing history of antisocial behaviorbehavior which reportedly predates the onset of his symptoms of schizophreniahave not been a focus of treatment and are unlikely to change. Careful monitoring, diversion, containment to the degree possible, to containment of the most appropriate interventions for this problem. 01/11 - Pt made aware again of unit expectations. With evidence of patient stealing keys and causing damage to room items - he remains on a medically necessary private room. His room is to be searched twice daily to ensure any stolen, non-essential, or potentially hazardous items are not being accumulated to the point of causing potential harm. Continue to enforce clear boundaries. 01/15 - Line of sight, high elopement precautions, and MNPR due to attempts to elope and repeatedly stealing and hiding items on the unit. Stole another patient's liquid medication off the med cart in the nurses' station and took 80- 100mg hydroxyzine, hid liquid citalopram in his room. 01/25 - More interactive on the unit, associating with peers. Remains on line of sight and MNPR. 01/28 -Patient continues to demonstrate some mild inappropriate behaviors but responding to redirection 01/27 - no acute behaviors 01/29 -The patient's behavior has been appropriate. He has been observed attempting to offer help and support other patients. Some of the patient's past antisocial acts may best be attributed to disorganized thinking that is, in his case, associated with nonadherence with psychiatric medications. Post Discharge Appointments Primary Care Physician Name Of Family Doctor: No current PCP, recommend that you get one in the area Psychiatrist Name of Psychiatrist: MARTIN Anuradha Ramírez for the assessment (Important! Next injection due 02/16) Psychiatrist's Date of Appointment with Psychiatrist: 01/30/19 Time of Appointment with Psychiatrist: 9:00 a.m. Psychiatric Appointment Comment: [address] [place] [id number] Therapist Name of Therapist: Denies Carpet Installation Specialist Name of Carpet Installation Specialist: [employer] - Bill Phone Number for Carpet Installation Specialist: [phone] Case Management Appointment Comment: [address], [address], [place], [place] Home Health Services Home Health Services:: None Smoking Cessation Counseling Tobacco Cessation Medication Prescribed at Discharge: Offered & Pt Refused (The patient has not smoked or otherwise use tobacco products since 12/13/2018, which means that he has not smoked for 7 weeks at this point. He voices an intent to remain tobacco free following discharge.) Contact Information Discharge Discharge Address: [address] [place] [id number] Contact Information Comment: [facility] Discharge Plan Discharge Items Patient Disposition: Personal Shelter Reason For Visit: SCHIZOPHRENIC 302 Discharge Diagnosis: schizophrenia Discharge Goals: Improve disease control, Improve function, Increase independence, Learn about illness and Prevent disease Activity: Resume your previous activity Non-emergency contact: Psychiatrist, Therapist and Journeyman Level Acoustic Analyst Call non-emergency contact if: you have any medication questions and your symptoms worsen Follow-up/Referrals: PCP,NO [Primary Care Provider] - Diet: Regular Addtl Provider Instructions: Avoid non-prescribed drugs, tobacco products, and alchohol. Prescriptions: Discontinued multivitamin Tablet 1 tab PO DAILY RF: 0 Stand-Alone Forms: [employer] [facility] Discharge Orders: Discharge Order (Routine); Ordered 01/29/19 Ordered By: Robi Vasquez Admission Data Admit Date/Time: 12/14/18 03:41 Attending Provider: Dinah Srinivasan Admit Provider: Dinah Srinivasan Primary Care Provider: PCP,NO Service: Psychiatry Other Interventions: Discharge Summary Assessment (RN) Last Done: 01/29/19 10:09 PSY Interdisciplinary Discharge Planning Last Done: 01/29/19 09:52 Pending Studies at Discharge: No
[2019-02-16] MEDS ORDERED: HALOPERIDOL DECANOATE INJ 50 MG/ML VIAL IM ONE (15:07)
== END 2019-01-29 14:45 | disposition home or self-care (01) | DRG 885 ==
LOC: ED 22:07 → 3S 12-14 02:52
DX: E11.9 Type 2 diabetes mellitus without complications; Z51.81 Encounter for therapeutic drug level monitoring; Z81.8 Family history of other mental and behavioral disorders; Z91.14 Patient's other noncompliance with medication regimen; F19.10 Other psychoactive substance abuse, uncomplicated; F20.5 Residual schizophrenia; F17.210 Nicotine dependence, cigarettes, uncomplicated

== ENCOUNTER 2021-03-19 20:50 | Inpatient (IN) ==
[2021-03-19] MEDS ORDERED: LORazepam 1 MG/2 ML VIAL IV STA ×2 (21:06→21:58)
[2021-03-19] MEDS ORDERED: SODIUM CHLORIDE 0.9% 1000ML 1,000 ML IV SCH (21:15)
[2021-03-19] MEDS ORDERED: HALOPERIDOL LACTATE 5 MG/ML 1 ML VIAL ONE (21:26)
[2021-03-19 21:32] LABS: Basophils # (auto) 0.02 K/uL (0-0.2); Basophils % (auto) 0.1 %; Eosinophils # (auto) 0.01 K/uL (0-0.5); Eosinophils % (auto) 0.1 %; Hematocrit (blood only) 47.4 % (42-52); Hemoglobin 16.2 g/dL (14.0-18.0); Immature Granulocytes # (auto) 0.06 K/uL (0.00-0.02); Immature Granulocytes % (auto) 0.4 %; Lymphocytes # (auto) 1.88 K/uL (1.2-3.4); Lymphocytes % (auto) 12.9 %; Mean Corpuscular Hgb Conc 34.2 g/dL (32-36); Mean Corpuscular Volume 90.6 fL (80-100); Mean Platelet Volume 9.7 fL (7.4-10.4); Monocytes # (auto) 1.11 K/uL (0.11-0.59); Monocytes % (auto) 7.6 %; Neutrophils % (auto) 78.9 %; Platelet Count 367 K/uL (130-400); RDW Standard Deviation 46.5 fL (36.4-46.3); Red Blood Count 5.23 M/uL (4.7-6.1); White Blood Count 14.58 K/uL (4.8-10.8)
--- NOTE | 2021-03-19 21:34 | Emergency Department Note ---
Impression & Plan Delirium due to general medical condition, Noncompliance with medications, Drug overdose, intentional, Anticholinergic syndrome, Rhabdomyolysis ED Provider Note NAME: APRIL GONZALEZ AGE: 45 SEX: M : 1975 ARRIVES VIA: Ambulance INFORMANT: Patient, ED PROVIDER(S): Reginaldo Jackson DO CHIEF COMPLAINT: Altered mental status HPI: The patient is a 45-year-old male who is a history of antisocial personality as well as schizophrenia who presented to the emergency department for an evaluation of altered mental status. The patient was staying at a local hotel. He called the front counter clerk multiple times to complain about issues with the television. He was taking the batteries out of the remote as well as unplugging the television. The patient was naked on 1 episode when the maintenance personnel went to see the room. The patient had the police called on him. When they got there he was very confused. He did not know exactly where he was. He was answering with different answers each time. The patient admitted to taking a large amount of Benadryl in an attempt to sleep. The patient himself offers no complaints. He denies having any chest pain or difficulty breathing. He does state that he took a large amount of Benadryl and thinks it may have been 60 tablets. He states he took them over the course of the evening because of insomnia. The patient states he has no medical problems and takes no medications. Apparently the patient was wearing a scrub top from [facility]. He denies any recent admissions to [facility]. ROS: See above HPI for pertinent positives & negatives. A total of 10 systems reviewed and were otherwise negative. PAST MEDICAL HISTORY: See Below PAST SURGICAL HISTORY: See Below FAMILY HISTORY: See Below SOCIAL HISTORY: See Below HOME MEDICATIONS: See Below ALLERGIES: See Below VITALS: See Below PHYSICAL EXAMINATION: GENERAL: The patient is awake and alert. The patient is very anxious appearing and appears to be responding to internal stimuli. EYES: The conjunctivae are clear. The pupils are dilated and reactive bila terally. EARS, NOSE, MOUTH AND THROAT: The nose is without any evidence of any deformity. Mucous membranes are dry. NECK: The neck is nontender and supple. RESPIRATORY: Normal respiratory effort is noted there is no evidence of wheezing rhonchi or rales CARDIOVASCULAR: Tachycardic rate with regular rhythm was noted. GASTROINTESTINAL: The abdomen is soft. Abdomen is nontender. MUSCULOSKELETAL/EXTREMITIES: There is no evidence of gross deformity full range of motion is noted in the hips and shoulders. SKIN: Skin was diaphoretic and cool. No significant pedal edema was noted. NEUROLOGIC: The patient is awake and alert. He is oriented to person. He recognizes the area he has as a hospital but does not know that we are at [facility]. He states that it is the summer and does not know the exact date. The patient is moving all extremities well. PSYCH: The patient makes very poor eye contact. He appears anxious and guarded. He starts yelling out inappropriately. Currently he is denying any suicidal homicidal ideation. MEDICAL DECISION MAKING: The patient is a 45-year-old male who presented to the emergency department for an evaluation of altered mental status. The patient has a history of mental health disorder. He also has a history of noncompliance with medications. The patient admitted to taking a large amount of Benadryl because he was having insomnia. The patient had an altered mental status. His overall condition did fit more of an anticholinergic syndrome but he was very diaphoretic which was not completely consistent. He was treated with IV fluids as well as IV benzodiazepines in the emergency department. He was reevaluated multiple times. The patient was found to have signs of rhabdomyolysis on laboratory studies. At this point I do not feel the patient would be able to be medically cleared in the emergency department. He will most likely need inpatient mental health treatment. This reason I discussed his case with the on-call [facility] hospitalist. They have agreed to evaluate the patient in the emergency department for further management and disposition. Triage Nursing notes reviewed. Prior medical records reviewed Vital Signs: reviewed and remarkable for tachycardia and hypertension. Differential diagnosis: Mood disorder, infection, hypoglycemia, electrolyte abnormalities, cardiac sources, intracerebral event, toxicologic, trauma, neurologic, as well as other pathologies. ER treatment provided: See below Diagnostics interpreted by me: ECG: EKG was obtained in the emergency department. My interpretation is sinus tachycardia at 116 bpm. There was no ectopy. There is no acute ST segment abnormalities noted. This was compared to a tracing from February 28, 2019. No significant changes were noted. Cardiac Monitoring: An order was placed for continuous cardiac monitoring. The monitor shows a rate of 120 bpm with sinus tachycardia rhythm. Laboratory studies: As stated above and show below. Imaging studies: See below Consultation(s): [id number]: I discussed this case with Dr. Krishnan who is on-call for the [facility] hospitalist group. They will evaluate the patient in the emergency department Past Med/Surg History Medical History Anxiety Borderline personality disorder Depression Diabetes Paranoid schizophrenia Family History Other Stroke Social History Smoking Status: Unknown if ever smoked Hx Alcohol Use: No Hx Substance Use: No Preferred Language: Iranian Communication Ability: Effective Engineering Laboratory Technician Required: No Beliefs That Will Affect Care: None Current Living Situation: Family Feels Safe at Home: Yes Assistive Devices: Glasses Allergies Allergies Allergy/AdvReac Type Severity Reaction Status Date / Time No Known Allergies Allergy Verified 03/19/21 21:02 Home Meds Home Medications Medication Instructions Recorded Confirmed Unobtainable 03/19/21 03/19/21 Results & Data (ED) Vital Signs Vital Signs - 24 hr 03/19/21 21:02 Temperature 36.6 C Temperature Source Oral Pulse Rate 120 H Pulse Rhythm Regular Pulse Strength Normal Respiratory Rate 20 Respiratory Depth Normal Blood Pressure 171/107 H Blood Pressure Mean 128 Blood Pressure Position Lying Pulse Oximetry 95 Sepsis Recent Fever Within 48 Hours No Sepsis New/Unexplained Change in Mental Status Yes Sepsis Action Taken by Nursing No Action Required Home Medications Current Medication List: was personally reviewed by me Laboratory Data Attestation: I reviewed the patient's lab results. Result diagrams: 03/19/21 21:19 03/19/21 21:19 Lab Results 03/19/21 03/19/21 03/19/21 Range/Units 21:00 21:00 21:19 WBC 14.58 H (4.8-10.8) K/uL RBC 5.23 (4.7-6.1) M/uL Hgb 16.2 (14.0-18.0) g/dL Hct 47.4 (42-52) % MCV 90.6 (80-100) fL MCH 31.0 (25-34) pg MCHC 34.2 (32-36) g/dL RDW Std Deviation 46.5 H (36.4-46.3) fL RDW Coeff of Rubens 14.0 (11.5-14.5) % Plt Count 367 (130-400) K/uL MPV 9.7 (7.4-10.4) fL Immature Gran % (Auto) 0.4 % Neut % (Auto) 78.9 % Lymph % (Auto) 12.9 % [place] % (Auto) 7.6 % Eos % (Auto) 0.1 % Baso % (Auto) 0.1 % Neut # (Auto) 11.50 H (1.4-6.5) K/uL Lymph # (Auto) 1.88 (1.2-3.4) K/uL [place] # (Auto) 1.11 H (0.11-0.59) K/uL Eos # (Auto) 0.01 (0-0.5) K/uL Baso # (Auto) 0.02 (0-0.2) K/uL Immature Gran # (Auto) 0.06 H (0.00-0.02) K/uL Sodium (136-145) mmol/L Potassium (3.5-5.1) mmol/L Chloride (98-107) mmol/L Carbon Dioxide (21-32) mmol/L Anion Gap (3-11) BUN (7-18) mg/dl Creatinine (0.6-1.4) mg/dl Est Cr Clr Drug Dosing Est GFR ( Amer) ml/min Est GFR (Non-Af Amer) ml/min BUN/Creatinine Ratio (10-20) Glucose (70-99) mg/dl Calcium (8.5-10.1) mg/dl Magnesium (1.8-2.4) mg/dl Total Bilirubin (0.2-1) mg/dl AST (15-37) U/L ALT (12-78) U/L Alkaline Phosphatase (45-117) U/L Total Creatine Kinase (39-308) U/L Troponin I (0-0.045) ng/ml Total Protein (6.4-8.2) gm/dl Albumin (3.4-5.0) gm/dl Globulin (2.5-4.0) gm/dl Albumin/Globulin Ratio (0.9-2) Lipase (73-393) U/L Urine Color Yellow Urine Appearance Clear (Clear) Urine pH 5.5 (4.5-7.5) Ur Specific [place] 1.019 (1.000-1.030) Urine Protein Trace H (Negative) Urine Glucose (UA) Negative (Negative) Urine Ketones Trace H (Negative) Urine Blood Negative (Negative) Urine Nitrite Negative (Negative) Urine Bilirubin Negative (Negative) Urine Urobilinogen Negative (Negative) Ur Leukocyte Esterase 1+ H (Negative) Urine WBC (Auto) 5-10 H (0-5) /hpf Urine RBC (Auto) 0-4 (0-4) /hpf U Hyaline Cast (Auto) 1-5 (0-5) /lpf U Epithel Cells (Auto) 10-20 H (0-5) /lpf Urine Bacteria (Auto) Negative (Negative) Salicylates (2.8-20) mg/dl Urine Opiates Screen Pos H (Neg) Ur Methadone, Qual Neg (Neg) Acetaminophen (10-30) ug/ml Urine Barbiturates Neg (Neg) Ur Phencyclidine (PCP) Pos H (Neg) U Amphetamin/Meth Scrn Neg (Neg) MDMA (Ecstasy) Screen Neg (Neg) U Benzodiazepines Scrn Neg (Neg) Ur Cocaine Metabolite Neg (Neg) U Marijuana (THC) Screen Neg (Neg) Ethyl Alcohol mg/dL (0-3) mg/dl COVID-19 Eval Order 03/19/21 03/19/21 03/19/21 Range/Units 21:19 21:19 21:19 WBC (4.8-10.8) K/uL RBC (4.7-6.1) M/uL Hgb (14.0-18.0) g/dL Hct (42-52) % MCV (80-100) fL MCH (25-34) pg MCHC (32-36) g/dL RDW Std Deviation (36.4-46.3) fL RDW Coeff of Rubens (11.5-14.5) % Plt Count (130-400) K/uL MPV (7.4-10.4) fL Immature Gran % (Auto) % Neut % (Auto) % Lymph % (Auto) % [place] % (Auto) % Eos % (Auto) % Baso % (Auto) % Neut # (Auto) (1.4-6.5) K/uL Lymph # (Auto) (1.2-3.4) K/uL [place] # (Auto) (0.11-0.59) K/uL Eos # (Auto) (0-0.5) K/uL Baso # (Auto) (0-0.2) K/uL Immature Gran # (Auto) (0.00-0.02) K/uL Sodium 141 (136-145) mmol/L Potassium 4.0 (3.5-5.1) mmol/L Chloride 108 H (98-107) mmol/L Carbon Dioxide 25 (21-32) mmol/L Anion Gap 8.0 (3-11) BUN 20 H (7-18) mg/dl Creatinine 0.90 (0.6-1.4) mg/dl Est Cr Clr Drug Dosing Not Reportable Est GFR ( Amer) 119.1 ml/min Est GFR (Non-Af Amer) 102.8 ml/min BUN/Creatinine Ratio 22.0 H (10-20) Glucose 106 H (70-99) mg/dl Calcium 9.3 (8.5-10.1) mg/dl Magnesium 2.2 (1.8-2.4) mg/dl Total Bilirubin 0.9 (0.2-1) mg/dl AST 56 H (15-37) U/L ALT 39 (12-78) U/L Alkaline Phosphatase 84 (45-117) U/L Total Creatine Kinase 1575 H (39-308) U/L Troponin I < 0.015 (0-0.045) ng/ml Total Protein 7.7 (6.4-8.2) gm/dl Albumin 4.5 (3.4-5.0) gm/dl Globulin 3.2 (2.5-4.0) gm/dl Albumin/Globulin Ratio 1.4 (0.9-2) Lipase 250 (73-393) U/L Urine Color Urine Appearance (Clear) Urine pH (4.5-7.5) Ur Specific [place] (1.000-1.030) Urine Protein (Negative) Urine Glucose (UA) (Negative) Urine Ketones (Negative) Urine Blood (Negative) Urine Nitrite (Negative) Urine Bilirubin (Negative) Urine Urobilinogen (Negative) Ur Leukocyte Esterase (Negative) Urine WBC (Auto) (0-5) /hpf Urine RBC (Auto) (0-4) /hpf U Hyaline Cast (Auto) (0-5) /lpf U Epithel Cells (Auto) (0-5) /lpf Urine Bacteria (Auto) (Negative) Salicylates 3.9 (2.8-20) mg/dl Urine Opiates Screen (Neg) Ur Methadone, Qual (Neg) Acetaminophen < 2 L (10-30) ug/ml Urine Barbiturates (Neg) Ur Phencyclidine (PCP) (Neg) U Amphetamin/Meth Scrn (Neg) MDMA (Ecstasy) Screen (Neg) U Benzodiazepines Scrn (Neg) Ur Cocaine Metabolite (Neg) U Marijuana (THC) Screen (Neg) Ethyl Alcohol mg/dL < 3.0 (0-3) mg/dl COVID-19 Eval Order 03/19/21 Range/Units 21:45 WBC (4.8-10.8) K/uL RBC (4.7-6.1) M/uL Hgb (14.0-18.0) g/dL Hct (42-52) % MCV (80-100) fL MCH (25-34) pg MCHC (32-36) g/dL RDW Std Deviation (36.4-46.3) fL RDW Coeff of Rubens (11.5-14.5) % Plt Count (130-400) K/uL MPV (7.4-10.4) fL Immature Gran % (Auto) % Neut % (Auto) % Lymph % (Auto) % [place] % (Auto) % Eos % (Auto) % Baso % (Auto) % Neut # (Auto) (1.4-6.5) K/uL Lymph # (Auto) (1.2-3.4) K/uL [place] # (Auto) (0.11-0.59) K/uL Eos # (Auto) (0-0.5) K/uL Baso # (Auto) (0-0.2) K/uL Immature Gran # (Auto) (0.00-0.02) K/uL Sodium (136-145) mmol/L Potassium (3.5-5.1) mmol/L Chloride (98-107) mmol/L Carbon Dioxide (21-32) mmol/L Anion Gap (3-11) BUN (7-18) mg/dl Creatinine (0.6-1.4) mg/dl Est Cr Clr Drug Dosing Est GFR ( Amer) ml/min Est GFR (Non-Af Amer) ml/min BUN/Creatinine Ratio (10-20) Glucose (70-99) mg/dl Calcium (8.5-10.1) mg/dl Magnesium (1.8-2.4) mg/dl Total Bilirubin (0.2-1) mg/dl AST (15-37) U/L ALT (12-78) U/L Alkaline Phosphatase (45-117) U/L Total Creatine Kinase (39-308) U/L Troponin I (0-0.045) ng/ml Total Protein (6.4-8.2) gm/dl Albumin (3.4-5.0) gm/dl Globulin (2.5-4.0) gm/dl Albumin/Globulin Ratio (0.9-2) Lipase (73-393) U/L Urine Color Urine Appearance (Clear) Urine pH (4.5-7.5) Ur Specific [place] (1.000-1.030) Urine Protein (Negative) Urine Glucose (UA) (Negative) Urine Ketones (Negative) Urine Blood (Negative) Urine Nitrite (Negative) Urine Bilirubin (Negative) Urine Urobilinogen (Negative) Ur Leukocyte Esterase (Negative) Urine WBC (Auto) (0-5) /hpf Urine RBC (Auto) (0-4) /hpf U Hyaline Cast (Auto) (0-5) /lpf U Epithel Cells (Auto) (0-5) /lpf Urine Bacteria (Auto) (Negative) Salicylates (2.8-20) mg/dl Urine Opiates Screen (Neg) Ur Methadone, Qual (Neg) Acetaminophen (10-30) ug/ml Urine Barbiturates (Neg) Ur Phencyclidine (PCP) (Neg) U Amphetamin/Meth Scrn (Neg) MDMA (Ecstasy) Screen (Neg) U Benzodiazepines Scrn (Neg) Ur Cocaine Metabolite (Neg) U Marijuana (THC) Screen (Neg) Ethyl Alcohol mg/dL (0-3) mg/dl COVID-19 Eval Order Covid19 at [facility] Administered Medications Discontinued Medications Haloperidol Lactate (Haloperidol Lactate 5 Mg/Ml 1 Ml Vial) Confirm Administered Dose 10 mg .ROUTE .STK-MED ONE Stop: 03/19/21 21:27 Last Admin: 03/19/21 21:55 Dose: Not Given Documented by: [id number] Sodium Chloride (Nss 1000ml) 1,000 mls @ 999 mls/hr IV .Q1H1M KELLY Stop: 03/19/21 22:15 Last Infusion: 03/19/21 22:16 Dose: 0 mls/hr Documented by: [id number] Admin: 03/19/21 21:54 Dose: 999 mls/hr Documented by: [id number] Lorazepam (Ativan) 1 mg in 2 mls @ 2 mls/min IV NOW STA Stop: 03/19/21 21:07 Last Admin: 03/19/21 21:54 Dose: 2 mls/min Documented by: [id number] Lorazepam (Ativan) 1 mg in 2 mls @ 2 mls/min IV NOW STA Stop: 03/19/21 21:59 Last Admin: 03/19/21 22:16 Dose: 2 mls/min Documented by: [id number] Imaging Data Attestation: I personally reviewed and interpreted this imaging study as follows: My Impression: 1 view chest x-ray was obtained in the emergency department. My interpretation is heart size is normal, poor inspiratory effort was noted. There was no free air, and there was no definite filtrate Radiologist's Impression: Patient: APRIL GONZALEZ (Male) : 75 Status: ER Date: 03/19/21 21:46 Room #: History: The patient is a 45-year-old male who is a history of antisocial personality as well as schizophrenia who presented to the emergency department for an evaluation of altered mental status. The patient was staying at a local hotel. He called the front counter clerk multiple times to complain about issues with the television. He was taking the batteries out of the remote as well as unplugging the television. The patient was naked on 1 episode when the maintenance personnel went to see the room. The patient had the police called on him. When they got there he was very confused. He did not know exactly where he was. He was answering with different answers each time. The patient admitted to taking a large amount of Benadryl in an attempt to sleep. The patient himself offers no complaints. He denies having any chest pain or difficulty breathing. He does state that he took a large amount of Benadryl and thinks it may have been 60 tablets. He states he took them over the course of the evening because of insomnia. best images possible pt unable to hold still/follow instructions Slices: 66 Priors: Tech: Geneva Jeffers @ [phone] Exams: CT HEAD Contrast: Accession Numbers: [id number] Preliminary Findings Only See Final Report For Complete Findings CT HEAD: No acute intracranial hemorrhage, hydrocephalus, edema, or mass effect. Paranasal sinuses and mastoid air cells are clear. No fracture. Radiologist: Alejandro Ware MD Study ready at 21:47 and initial results transmitted at 22:00 Discharge Plan Visit Data Chief Complaint: Mental Health Evaluation ED Provider: Reginaldo Jackson Discharge Problem: Delirium due to general medical condition, Noncompliance with medications, Drug overdose, intentional, Anticholinergic syndrome, Rhabdomyolysis Patient Disposition: Being Evaluated by Hospitalist Condition: Good Forms Stand Alone Forms: [employer], Suicide Prevention Resources Prescriptions Prescriptions: No Action Unobtainable RF: 0 Referrals Referrals: PT,DECLINED [Primary Care Provider] - Discharge Problem: Drug overdose, intentional Qualifiers: Encounter type: initial encounter Qualified Code(s): T50.902A - Poisoning by unspecified drugs, medicaments and biological substances, intentional self-harm, initial encounter Anticholinergic syndrome Qualifiers: Encounter type: initial encounter Injury intent: undetermined intent Qualified Code(s): T44.3X4A - Poisoning by other parasympatholytics [anticholinergics and antimuscarinics] and spasmolytics, undetermined, initial encounter Rhabdomyolysis Qualifiers: Rhabdomyolysis type: non-traumatic Qualified Code(s): M62.82 - Rhabdomyolysis
[2021-03-19 21:37] LABS: Appearance Urine Clear (Clear); Bacteria Urine Automated Negative (Negative); Bilirubin Urine Negative (Negative); Blood Urine Negative (Negative); Color Urine Yellow; Glucose Urine UA Negative (Negative); Ketones Urine Trace (Negative); Leukocyte Esterase Urine 1+ (Negative); Nitrite Urine Negative (Negative); Protein Urine Trace (Negative); RBC Urine Automated 0-4 /hpf (0-4); Specific Gravity Urine 1.019 (1.000-1.030); Urobilinogen Urine Negative (Negative); pH Urine 5.5 (4.5-7.5)
[2021-03-19 21:49] LABS: Alanine Aminotransferase 39 U/L (12-78); Albumin Level 4.5 gm/dl (3.4-5.0); Aspartate Aminotransferase 56 U/L (15-37); Blood Urea Nitrogen 20 mg/dl (7-18); Calcium 9.3 mg/dl (8.5-10.1); Carbon Dioxide 25 mmol/L (21-32); Chloride 108 mmol/L (98-107); Est GFR (African American) 119.1 ml/min; Est GFR (Non-African American) 102.8 ml/min; Glucose 106 mg/dl (70-99); Lipase 250 U/L (73-393); Magnesium 2.2 mg/dl (1.8-2.4); Sodium 141 mmol/L (136-145)
[2021-03-19 22:04] LABS: Albumin Globulin Ratio 1.4 (0.9-2); Alkaline Phosphatase 84 U/L (45-117); Bilirubin,Total 0.9 mg/dl (0.2-1); Creatine Kinase 1575 U/L (39-308); Globulin 3.2 gm/dl (2.5-4.0); Total Protein 7.7 gm/dl (6.4-8.2); Troponin I < 0.015 ng/ml (0-0.045)
[2021-03-19 22:06] LABS: Acetaminophen < 2 ug/ml (10-30); Salicylate 3.9 mg/dl (2.8-20)
[2021-03-19 22:08] LABS: Amphetamines+Metham, Urine Neg (Neg); Barbiturates, Urine Neg (Neg); Benzodiazepine, Urine Neg (Neg); Cocaine, Urine Neg (Neg); MDMA (Ecstacy), Urine Neg (Neg); Methadone, Urine Neg (Neg); Opiate, Urine Pos (Neg); Phencyclidine, Urine Pos (Neg)
--- NOTE | 2021-03-19 22:59 | History & Physical Report ---
Date of Service March 19, 2021 Assessment & Plan (1) Delirium due to general medical condition: 45yo C male with history of paranoid schizophrenia, anxiety/depression and borderline personality presents with acute delirium possibly secondary to Benadryl overdose. Uncertain of patient's home medications or if he has been taking them. States he took appx 60 tablets of Benadryl in order to help him sleep. Denies suicidal ideation. Patient also denies drug use, however, has tested positive for both PCP (confirmatory test is pending) and opiates. He is restless, tachycardic and hypertensive. Labs significant for elevated WBC of 14.58 as well as CK elevation to 1547 QRS=94, QTc WNL -Admit to medical with telemetry -Check TSH -Valium 10mg po x 1 dose now. May repeat if agitation continues -Clonidine 0.1mg po x 1 dose to assist with both delirium/overdose symptoms as well as blood pressure -1:1 sitter -Psychiatry consultation Present on Admission?: Yes (2) Rhabdomyolysis: Elevated CK of 1575 most likely secondary to psychomotor agitation/restlessness. Renal function intact -IVF LR -Repeat CK in AM Present on Admission?: Yes (3) Schizophrenia: Uncertain of patient's home medications. Assume noncompliance given review of prior records. Patient is unable to provide clear information at this time given delirious state. Would benefit from further questioning as he improves -Valium as above -Psychiatry consultation appreciated F/E/N - LR at 125mL/hr x 2 liters, monitor electrolytes, clear liquid diet as tolerated with aspiration precautions Ppx - Low risk for DVT Code - Full Dispo - Admit to medical with telemetry Present on Admission?: Yes History of Present Illness Chief Complaint: Confusion Primary Care Provider: PT DECLINED Arian Dai is a 45yo male with history of paranoid schizophrenia, anxiety/depression presenting with possible Benadryl overdose. Patient is altered - unable to provide reliable details of events prior to arrival. History obtained through chart review and discussion with ER attending. Patient was apparently staying at a hotel and was calling the maintenance desk multiple times to change his sheets and fix his TV. Staff members went to his room and found him naked and behaving strangely. Police were called and he was brought to the ER. Patient with history of several psychiatric disorders. Uncertain of his current medications or if he is taking them. He does report taking "a lot" of Benadryl to help him sleep - Possibly between 20 and 60 tablets. He is delirious but has no complaints - denies chest pain, SOB, abdominal pain, nausea, vomiting, diarrhea or constipation. ER Course: Ativan 1mg IV x 2 doses, NSS x 1L Allergies Allergy/AdvReac Type Severity Reaction Status Date / Time No Known Allergies Allergy Verified 03/19/21 21:02 Home Medications Medication Instructions Recorded Confirmed Type Unobtainable 03/19/21 03/19/21 History Past Med/Surg History Medical History Anxiety Borderline personality disorder Depression Diabetes Paranoid schizophrenia Family History Other Stroke Social History Smoking Status: Unknown if ever smoked Hx Alcohol Use: No Hx Substance Use: No Preferred Language: Telugu Communication Ability: Effective Frame Tender Required: No Beliefs That Will Affect Care: None Current Living Situation: Family Feels Safe at Home: Yes Assistive Devices: Glasses Review of Systems Review of Systems: Unobtainable due to mental health condition Physical Exam Physical Exam: General: patient delirious, diaphoretic, oriented to self only, able to follow commands and answer some questions appropriately with redirection Skin: warm, diaphoretic, no rashes HEENT: NC/AT, PERRL, EOMI, anicteric sclera, conjunctiva without injection, external ear normal to inspection and nontender, nares patent, slightly dry mucus membranes, dentition intact, no oropharyngeal lesions, neck supple, trachea midline, no LAD, no thyromegaly, no JVD Heart: +S1/S2, regular, tachycardic, no m/r/g Lungs: equal air entry bilaterally, no rales/rhonchi/wheezes anteriorly Abd: +BS, soft, NT/ND, no masses/organomegaly/ascites Ext: warm, 2+ pulses in UE/LE bilaterally, no clubbing/cyanosis or edema Neuro/Psych:acutely delirious, appears poorly kempt, disorganized thoughts, grossly nonfocal, moving all extremities with equal strength,oriented to self, restless/psychomotor agitation, speech is garbled and unintelligible at times Results & Data Results & Data ([facility]) Vital Signs (Past 12 Hours) Vital Signs Temp Pulse Resp BP Pulse Ox 03/19/21 21:02 36.6 C 120 H 20 171/107 H 95 Laboratory Results Laboratory Results WBC 14.58 K/uL (4.8-10.8) H 03/19/21 21:19 RBC 5.23 M/uL (4.7-6.1) 03/19/21 21:19 Hgb 16.2 g/dL (14.0-18.0) 03/19/21 21:19 Hct 47.4 % (42-52) 03/19/21 21:19 MCV 90.6 fL (80-100) 03/19/21 21:19 MCH 31.0 pg (25-34) 03/19/21 21:19 MCHC 34.2 g/dL (32-36) 03/19/21 21:19 RDW Std Deviation 46.5 fL (36.4-46.3) H 03/19/21 21:19 RDW Coeff of Rubens 14.0 % (11.5-14.5) 03/19/21 21:19 Plt Count 367 K/uL (130-400) 03/19/21 21:19 MPV 9.7 fL (7.4-10.4) 03/19/21 21:19 Immature Gran % (Auto) 0.4 % 03/19/21 21:19 Neut % (Auto) 78.9 % 03/19/21 21:19 Lymph % (Auto) 12.9 % 03/19/21 21:19 [place] % (Auto) 7.6 % 03/19/21 21:19 Eos % (Auto) 0.1 % 03/19/21 21:19 Baso % (Auto) 0.1 % 03/19/21 21:19 Neut # (Auto) 11.50 K/uL (1.4-6.5) H 03/19/21 21:19 Lymph # (Auto) 1.88 K/uL (1.2-3.4) 03/19/21 21:19 [place] # (Auto) 1.11 K/uL (0.11-0.59) H 03/19/21 21:19 Eos # (Auto) 0.01 K/uL (0-0.5) 03/19/21 21:19 Baso # (Auto) 0.02 K/uL (0-0.2) 03/19/21 21:19 Immature Gran # (Auto) 0.06 K/uL (0.00-0.02) H 03/19/21 21:19 Sodium 141 mmol/L (136-145) 03/19/21 21:19 Potassium 4.0 mmol/L (3.5-5.1) 03/19/21 21:19 Chloride 108 mmol/L (98-107) H 03/19/21 21:19 Carbon Dioxide 25 mmol/L (21-32) 03/19/21 21:19 Anion Gap 8.0 (3-11) 03/19/21 21:19 BUN 20 mg/dl (7-18) H 03/19/21 21:19 Creatinine 0.90 mg/dl (0.6-1.4) 03/19/21 21:19 Est Cr Clr Drug Dosing Not Reportable 03/19/21 21:19 Est GFR ( Amer) 119.1 ml/min 03/19/21 21:19 Est GFR (Non-Af Amer) 102.8 ml/min 03/19/21 21:19 BUN/Creatinine Ratio 22.0 (10-20) H 03/19/21 21:19 Glucose 106 mg/dl (70-99) H 03/19/21 21:19 Calcium 9.3 mg/dl (8.5-10.1) 03/19/21 21:19 Magnesium 2.2 mg/dl (1.8-2.4) 03/19/21 21:19 Total Bilirubin 0.9 mg/dl (0.2-1) 03/19/21 21:19 AST 56 U/L (15-37) H 03/19/21 21:19 ALT 39 U/L (12-78) 03/19/21 21:19 Alkaline Phosphatase 84 U/L (45-117) 03/19/21 21:19 Total Creatine Kinase 1575 U/L (39-308) H 03/19/21 21:19 Troponin I < 0.015 ng/ml (0-0.045) 03/19/21 21:19 Total Protein 7.7 gm/dl (6.4-8.2) 03/19/21 21:19 Albumin 4.5 gm/dl (3.4-5.0) 03/19/21 21: Globulin 3.2 gm/dl (2.5-4.0) 03/19/21 21:19 Albumin/Globulin Ratio 1.4 (0.9-2) 03/19/21 21:19 Lipase 250 U/L (73-393) 03/19/21 21:19 Urine Color Yellow 03/19/21 21:00 Urine Appearance Clear (Clear) 03/19/21 21:00 Urine pH 5.5 (4.5-7.5) 03/19/21 21:00 Ur Specific [place] 1.019 (1.000-1.030) 03/19/21 21:00 Urine Protein Trace (Negative) H 03/19/21 21:00 Urine Glucose (UA) Negative (Negative) 03/19/21 21:00 Urine Ketones Trace (Negative) H 03/19/21 21:00 Urine Blood Negative (Negative) 03/19/21 21:00 Urine Nitrite Negative (Negative) 03/19/21 21:00 Urine Bilirubin Negative (Negative) 03/19/21 21:00 Urine Urobilinogen Negative (Negative) 03/19/21 21:00 Ur Leukocyte Esterase 1+ (Negative) H 03/19/21 21:00 Urine WBC (Auto) 5-10 /hpf (0-5) H 03/19/21 21:00 Urine RBC (Auto) 0-4 /hpf (0-4) 03/19/21 21:00 U Hyaline Cast (Auto) 1-5 /lpf (0-5) 03/19/21 21:00 U Epithel Cells (Auto) 10-20 /lpf (0-5) H 03/19/21 21:00 Urine Bacteria (Auto) Negative (Negative) 03/19/21 21:00 Salicylates 3.9 mg/dl (2.8-20) 03/19/21 21:19 Urine Opiates Screen Pos (Neg) H 03/19/21 21:00 Ur Methadone, Qual Neg (Neg) 03/19/21 21:00 Acetaminophen < 2 ug/ml (10-30) L 03/19/21 21:19 Urine Barbiturates Neg (Neg) 03/19/21 21:00 Ur Phencyclidine (PCP) Pos (Neg) H 03/19/21 21:00 U Amphetamin/Meth Scrn Neg (Neg) 03/19/21 21:00 MDMA (Ecstasy) Screen Neg (Neg) 03/19/21 21:00 U Benzodiazepines Scrn Neg (Neg) 03/19/21 21:00 Ur Cocaine Metabolite Neg (Neg) 03/19/21 21:00 U Marijuana (THC) Screen Neg (Neg) 03/19/21 21:00 Ethyl Alcohol mg/dL < 3.0 mg/dl (0-3) 03/19/21 21:19 COVID-19 Eval Order Covid19 at [facility] 03/19/21 21:45 SARS-CoV-2 (PCR) NEGATIVE (Negative) 03/19/21 21:[address] Head per stat rad: No acute intracranial hemorrhage, hydrocephalus, edema or mass effect. Paranasal sinuses and mastoid air cells are clear. No fracture. ECG Additional Comments: EKG wtih ST at 116, normal axis, ZL=299, QRS=94, IZr=520 No change when compared with prior study PG Care Time/CCT Total # of Minutes Spent Total Time Spent with Patient: Total time spent is greater than 50% in coordination of care (as documented) at patient's floor/unit and/or counseling patient: Coding Level of Care Code 54252 Initial Inpt Care Lvl 2 Diagnoses Delirium due to general medical condition F05 Rhabdomyolysis M62.82 Rhabdomyolysis type: non-traumatic Schizophrenia F20.9 Schizophrenia type: unspecified (1) Rhabdomyolysis Rhabdomyolysis type: non-traumatic Qualified Code(s): M62.82 - Rhabdomyolysis (2) Schizophrenia Schizophrenia type: unspecified Qualified Code(s): F20.9 - Schizophrenia, u nspecified
[2021-03-20] MEDS ORDERED: cloNIDine HCL 0.1 MG TAB PO ONE (00:50)
[2021-03-20] MEDS: diazePAM 5 MG TABLET PO ONE ×2 (01:29→01:55)
[2021-03-20] MEDS ORDERED: HALOPERIDOL LACTATE 5 MG/ML 1 ML VIAL IM STA ×2 (01:41→06:46)
[2021-03-20] MEDS ORDERED: HALOPERIDOL LACTATE 5 MG/ML 1 ML VIAL ONE ×2 (01:42→06:37)
[2021-03-20] MEDS: LACTATED RINGER'S 1,000 ML IV SCH ×3 (01:54→20:12)
[2021-03-20] MEDS ORDERED: LORazepam 1 MG/2 ML VIAL IV PRN (02:03)
[2021-03-20] MEDS ORDERED: LORazepam 2 MG/ML VIAL (IM USE) IM STA ×2 (02:09→12:35)
[2021-03-20] MEDS ORDERED: LORazepam 2 MG/ML VIAL (IM USE) IM PRN ×2 (05:44→06:07)
[2021-03-20] MEDS ORDERED: LORazepam 2 MG/4 ML VIAL ONE ×2 (05:50→09:49)
--- NOTE | 2021-03-20 07:20 | CT Scan Report ---
HEAD CT NONCONTRAST CT DOSE: 853.38 mGy.cm HISTORY: Altered mental status. TECHNIQUE: Multiaxial CT images of the head were performed without the use of intravenous contrast. A utomated exposure control was utilized for this study. A dose lowering technique was utilized adheri ng to the principles of ALARA. Comparison: None. Findings: The paranasal sinuses and mastoid air cells are clear. The calvarium and skull base are int act. The ventricles and sulci are within normal limits. There is no mass, hematoma, midline shift, or acute infarct. Impression: No acute intracranial abnormality. ACT 112: Negative or not required by law. Electronically signed by: Zachary Haskins M.D. 03/20/2021 7:18 AM
--- NOTE | 2021-03-20 07:25 | XRay Report ---
XR chest 1V portable HISTORY: Overdose. COMPARISON: None. FINDINGS: The lungs are clear. The heart is normal in size. No pleural effusions. No pneumothorax. Ol d, healed left lower rib fractures are noted. IMPRESSION: No acute process. ACT 112: Negative or not required by law. Electronically signed by: Zachary Haskins M.D. 03/20/2021 7:24 AM
--- NOTE | 2021-03-20 07:31 | Hospitalist Progress Note ---
Date of Service March 20, 2021 Assessment & Plan (1) Delirium due to general medical condition: 45yo C male with history of paranoid schizophrenia, anxiety/depression and borderline personality presents with acute delirium possibly secondary to Benadryl overdose. Uncertain of patient's home medications or if he has been taking them. States he took appx 60 tablets of Benadryl in order to help him sleep. Denies suicidal ideation. Patient also denies drug use, however, has tested positive for both PCP (confirmatory test is pending) and opiates. agitation secondary to anticholinergic overdose and chronic mental health conditions - severe agitation during this admission, requiring multiple doses of haldol and ativan - remains tachycardic and restless - leukocytosis 14.58->19.09, may be 2/2 rhabdo - 1:1 sitter - s/p 10 mg PO valium x1 at admission. - s/p clonidine 0.1 mg x1 at admission - s/p haldol 10 mg x1 at admission for agitation. haldol since discontinued and patient has been treated w/ doses of Ativan ~q2-4h prn - psych consulted. recs against further haldol. can use Ativan 2 mg PRN - will use q4hprn 2 mg Ativan schedule for now w/ addition doses as needed sparingly - continue telemetry. qtc 461 on ecg - soft restraints upgraded to locked restraints AM of 03/20 because patient would remove/dislodge medical equipment. Patient would flail uncontrollably and try to get out of bed. Discussed w/ nursing staff and charge nurse prior to upgrade. (2) Rhabdomyolysis: Elevated CK of 1575 most likely secondary to psychomotor agitation/restlessness. Renal function intact -IVF LR ordered, but patient refused -Repeat CK lowered to 1073 -given this level of elevation, likely mild rhabdo. patient refused and decision was made to not reattempt because of concern for urinary retention. ordered regular diet (3) Schizophrenia: Uncertain of patient's home medications. Assume noncompliance given review of prior records. Patient is unable to provide clear information at this time given delirious state. Would benefit from further questioning as he improves -medications as above -Psychiatry consultation appreciated FEN/GI - regular diet. if staff express concerns about aspiration, add precautions and consider modifying Ppx - Low risk for DVT Code - Full Dispo - med surg w/ tele. dispo plan: will need to discuss w/ psychiatry regarding dispo plan (4) Acute urinary retention: - likely 2/2 anticholinergic use - 700cc per bladder scan PM of 03/20. straight cath prn ordered. monitor frequency of how often performed. may need to adjust prn schedule if too infrequent - nursing staff inquired about de la cruz. at this time, concern is that patient's agitation would lead to urethral damage w/ de la cruz (5) Anticholinergic syndrome: - 2/2 reportedly taking 60 tabs of benadryl for sleep, no SI - unclear if contributing to agitation - urinary retention noted as above - per psych, continue supportive care Admission and Anticipated Discharge Date Admission Date: March 19, 2021 Supervising Physician Co-Signing Physician Notes I personally examined the patient and verified all bui points of history and exam, discussed case, and agree with decision making with Dr Adam. No meaningful HPI or review of systems obtainable. Patient mostly speaks nonsensically. Although he does voice something somewhat discernible about needing 40-80 Benadryl to sleep. He also had some urinary retention earlier requiring straight cath. Vitals noted, in general he is initially resting in bed appearing in no distress, but as soon as he senses other human interaction he starts to thrash to a degree and speak nonsensically. Cardio is regular without rubs murmurs or gallops. Lungs clear to auscultation bilaterally no rales rhonchi wheezes good effort. Abdomen is soft nondistended nontender no masses organomegaly. No focal neuro deficits noted. Skin shows no rashes no pallor or icterus. Deliriumseems to be multifactorialcertainly anticholinergic overdose related to his Benadryl overdose could explain all of his clinical picture, but his underlying schizophrenia certainly could explain some of this as well. Treat/supportive care through reasonable timeline for the anticholinergic overdoseappreciate psychiatry assistance in thisand then follow mental status to hopefully build to discern appropriate treatment for schizophrenia. Tachycardiarelated to above. No clear indication any beta-blockers at this time Urinary retentiondue to aboveparticularly the anticholinergic overdose. There is no clear "good" answercertainly he needs bladder drainage. Straight cath as needed will be less agitating overall, but very agitating when needed done, De La Cruz would require only 1 insertion of the catheter, but would likely be constantly provoking, and should his restraints come loose, he would be high risk to hurt himself by pulling the De La Cruz outwith this in mind, for now we will keep him straight cath as needed. Schizophreniaas above DVT prophylaxislow risk for DVT, however if he continues to require restraints, may need to consider pharmacologic prophylaxis simply due to immobility. Subjective Patient's complaint is pain at his ankles from the restraints being too tight. Denies other complaints including headache, nausea/vomiting/ chest pain, SOB. A shailesh person was called in the AM prior to handoff from night team to day team ~630AM. Review of Systems Review of Systems: ROS reviewed as above. ROS was somewhat limited by patient's mentation. Physical Exam Physical Exam: General: NAD. Cooperative. Initially sleeping, but woke up. Asking for water. HEENT: Atraumatic, normocephalic. Pulm: CTAB anteriorly No respiratory distress. Cardiac: RRR, -mrg. Radial pulses intact and symmetrical. Abdominal: Nontender, nondistended, soft. Results & Data Results & Data ([facility]) Vital Signs (Past 12 Hours) Vital Signs Temp Pulse Pulse Resp BP BP Pulse Ox 03/20/21 00:45 37 C 129 H 20 149/102 H 93 03/19/21 23:58 129 H 22 98/66 L 97 03/19/21 21:02 36.6 C 120 H 20 171/107 H 95 Resident Activity Tracking Resident Involvement: Resident Care Provided Care Provided: Adult Hospital Medicine (1) Rhabdomyolysis Rhabdomyolysis type: non-traumatic Qualified Code(s): M62.82 - Rhabdomyolysis (2) Schizophrenia Schizophrenia type: unspecified Qualified Code(s): F20.9 - Schizophrenia, unspecified (3) Anticholinergic syndrome Encounter type: initial encounter Injury intent: undetermined intent Qualified Code(s): T44.3X4A - Poisoning by other parasympatholytics [anti cholinergics and antimuscarinics] and spasmolytics, undetermined, initial encounter
--- NOTE | 2021-03-20 10:11 | Communication Note ---
Date of Service: March 20, 2021 45-year-old patient well-known to psychiatric services for past psychiatric admissions presenting with extreme agitation likely secondary to anticholinergic toxicity. At this time patient remains delirious at bedside, in four-point restraints and is quite restless. Patient is not oriented to person place or time. Speaks nonsensically and slurs his words. Flails arms and attempts to free himself of restraints. Recommendations: In cases of anticholinergic toxicity, supportive care is typically sufficient. Patient will require IV/IM benzodiazepine administration at high doses to minimize his agitation and restlessness and hopefully prevent future complications like injuries, rhabdomyolysis, hypothermia. -Ativan 2 mg IV every 2 hours as needed agitation Hold off on further Haldol administration at this time as it is possible to worsen confusion/rhabdo. -Consider placing patient on IV fluids, consider Hanson cath for urinary retention -Continue to treat other symptoms of anticholinergic toxicity -Psychiatry will continue to follow
[2021-03-20 11:33] LABS: Basophils # (auto) 0.01 K/uL (0-0.2); Basophils % (auto) 0.1 %; Eosinophils # (auto) 0.01 K/uL (0-0.5); Eosinophils % (auto) 0.1 %; Hematocrit (blood only) 45.4 % (42-52); Immature Granulocytes # (auto) 0.05 K/uL (0.00-0.02); Immature Granulocytes % (auto) 0.3 %; Mean Corpuscular Hemoglobin 31.1 pg (25-34); Mean Platelet Volume 9.8 fL (7.4-10.4); Monocytes # (auto) 1.49 K/uL (0.11-0.59); Monocytes % (auto) 7.8 %; Neutrophils # (auto) 15.23 K/uL (1.4-6.5); Neutrophils % (auto) 79.7 %; Platelet Count 368 K/uL (130-400); RDW Coefficient of Variation 14.4 % (11.5-14.5); RDW Standard Deviation 48.9 fL (36.4-46.3); Red Blood Count 4.83 M/uL (4.7-6.1); White Blood Count 19.09 K/uL (4.8-10.8)
[2021-03-20 11:53] LABS: BUN Creatinine Ratio 37.6 (10-20); Creatinine Clr Calc Pharmacy 165.6 ml/min; Est GFR (African American) 128.4 ml/min; Est GFR (Non-African American) 110.8 ml/min; Potassium 3.7 mmol/L (3.5-5.1)
[2021-03-20] MEDS ORDERED: LORazepam 2 MG/4 ML VIAL IV STA (11:56)
[2021-03-20 12:06] LABS: Bilirubin Direct 0.3 mg/dl (0-0.2); Thyroid Stimulating Hormone 1.78 uIu/ml (0.300-4.500)
[2021-03-20] MEDS ORDERED: LORazepam 2 MG/4 ML VIAL IV PRN (15:52)
--- NOTE | 2021-03-20 16:12 | Billing Data ---
Date of Service March 20, 2021 Coding Level of Care Code 64723 Subseq Hosp Care Lvl 3
[2021-03-20] MEDS: LORazepam 2 MG/4 ML VIAL IV PRN ×2 (19:59→22:02)
[2021-03-20] MEDS ORDERED: LACTATED RINGER'S 1,000 ML IV SCH (22:00)
[2021-03-21] MEDS: LORazepam 2 MG/4 ML VIAL IV PRN ×12 (00:10→23:21)
--- NOTE | 2021-03-21 06:12 | Electrocardiogram Report ---
Test Reason : Blood Pressure : / mmHG Vent. Rate : 116 BPM Atrial Rate : 116 BPM P-R Int : 132 ms QRS Dur : 094 ms QT Int : 332 ms P-R-T Axes : 054 035 044 degrees QTc Int : 461 ms Poor data quality, interpretation may be adversely affected Sinus tachycardia Borderline ECG When compared with ECG of 28-FEB-2019 19:58, No significant change was found Confirmed by Khurram Muñoz ([id number]) on 03/21/2021 6:12:38 AM Referred By: REFERRED SELF Confirmed By:Khurram Muñoz
--- NOTE | 2021-03-21 07:06 | Hospitalist Progress Note ---
Date of Service March 21, 2021 Assessment & Plan (1) Anticholinergic syndrome: Patient is a 45 year old male with PMHx Paranoid Schizophrenia, BPD who presented with acute delirium secondary to suspected Benadryl Overdose. Patient with reported consumption of 60-80 capsules of Benadryl in order to allow him to sleep. Per admission SI was denied, unable to confirm as patient is nonsensical in regards to responses. Acute Delirium secondary to Anticholinergic Overdose and exacerbation of chronic mental health conditions -Severe agitation requiring multiple doses of Haldol and Ativan on admission, ultimately requiring restraints for concern of harm to self and staff -Hold on further Haldol for concerns of worsening confusion/rhabdomyolysis -Continues to be Tachycardic and hypertensive, though severely agitation -Psychiatry consulted -Recommending Ativan 2mg q2h PRN -Continue with symptomatic care for anticholinergic overdose -Patient taking PO, will hold on IV fluids at this time -Continue 1:1 sitter Urinary Retention -Secondary to anticholinergic overdose -Hanson to placed today after multiple required straight catheterizations -Will monitor for agitation/attempts for removal Rhabdomyolysis -CK Mildly elevated at 1575 on admission, improving -Taking in good PO of fluids, will hold on IVF as above Hx Schizophrenia -Suspect noncompliance of home meds -Would review meds with patient when more alert and oriented Dispo: M/S Telemetry for continued close monitoring while patient recovers from anticholinergic overdose FEN: Reg diet DVT: Low Risk - if continued restraints consider chemoprophylaxis Code: Full Admission and Anticipated Discharge Date Admission Date: March 19, 2021 Supervising Physician Co-Signing Physician Notes I personally supervised Pavan Kang DO on this patient's care. I interviewed and examined the patient independently of him. Unfortunate 45yo M w/ hx of psychiatric problems and drug abuse, presenting with polysubstance use. On my exam, he is repeating numbers over and over "4 1 4 2 4 6 2" etc. and saying "Oh fuck!" Unable to obtain a review of systems. He was quite agitated and thrashing in bed. Unable to auscultate heart, lungs, abd, etc due to patient violence. Will continue IV thiamine as his drinking history is unclear. I think it is relatively unlikely this represents any form of Wernicke's, but I see no harm in thiamine repletion. Otherwise, will use physical and chemical restraints only insomuch as it is necessary to keep the patient and staff safe. Psychiatry diana best re: his psychiatric history. Appreciate their input. - Will monitor CK and attempt IV fluids as able. Subjective Patient evaluated at the bedside x2 this AM. Initial eval patient was sleeping and in restraints. Second evaluation patient was awake, but nonsensical in responses. When asked how he was feeling patient would respond that "I am God and the Devil." Review of Systems Review of Systems: Unobtainable due to mental health condition and Unobtainable due to cognitive status Physical Exam Constitutional: + intoxicated appearing, + disheveled and + combative; + uncooperative Respiratory: + tachypneic; no respiratory distress Auscultation: lungs clear to auscultation bilaterally Cardiovascular: Rate/Rhythm: + tachycardic Heart Sounds: normal S1 and normal S2; no murmur Gastrointestinal (Abdomen): Inspection/Auscultation: abdomen normal to inspection and normal bowel sounds; abdomen not distended Psychiatric: Orientation: + not alert, + not oriented to person, + not oriented to place, + not oriented to time and + uncooperative Eye Contact: + poor eye contact Affect: + anxious affect and + irritable affect Thought Process: + flight of ideas and + confabulations Results & Data Results & Data ([facility]) Vital Signs (Past 12 Hours) Vital Signs Temp Pulse Pulse Pulse Resp BP Pulse Ox 03/21/21 06:49 37.0 C 120 H 22 156/89 H 03/21/21 03:33 36.9 C 123 H 20 165/87 H 95 03/20/21 22:20 114 H 03/20/21 22:14 36.5 C 127 H 22 149/67 H 94 03/20/21 19:29 37.9 C H 123 H 22 170/74 H 92 Resident Activity Tracking Resident Involvement: Resident Care Provided Care Provided: Adult Hospital Medicine (1) Anticholinergic syndrome Encounter type: initial encounter Injury intent: undetermined intent Qualified Code(s): T44.3X4A - Poisoning by other parasympatholytics [anticholinergics and antimuscarinics] and spasmolytics, undetermined, initial encounter
[2021-03-21] MEDS: THIAMINE HCL 100 MG in SYRINGE 9 ML IV SCH (11:14)
[2021-03-21 15:02] LABS: Basophils # (auto) 0.01 K/uL (0-0.2); Basophils % (auto) 0.1 %; Eosinophils # (auto) 0.08 K/uL (0-0.5); Eosinophils % (auto) 0.6 %; Hematocrit (blood only) 43.1 % (42-52); Hemoglobin 14.3 g/dL (14.0-18.0); Immature Granulocytes # (auto) 0.02 K/uL (0.00-0.02); Immature Granulocytes % (auto) 0.2 %; Lymphocytes % (auto) 19.8 %; Mean Corpuscular Hemoglobin 30.6 pg (25-34); Mean Corpuscular Hgb Conc 33.2 g/dL (32-36); Mean Corpuscular Volume 92.3 fL (80-100); Mean Platelet Volume 9.8 fL (7.4-10.4); Monocytes # (auto) 0.94 K/uL (0.11-0.59); Monocytes % (auto) 7.4 %; Neutrophils % (auto) 71.9 %; Platelet Count 317 K/uL (130-400); RDW Coefficient of Variation 14.1 % (11.5-14.5); RDW Standard Deviation 47.5 fL (36.4-46.3); Red Blood Count 4.67 M/uL (4.7-6.1); White Blood Count 12.65 K/uL (4.8-10.8)
[2021-03-21 15:54] LABS: Albumin Globulin Ratio 1.1 (0.9-2); Albumin Level 3.5 gm/dl (3.4-5.0); BUN Creatinine Ratio 32.6 (10-20); Calcium 8.6 mg/dl (8.5-10.1); Creatinine Clr Calc Pharmacy 203.6 ml/min; Est GFR (African American) 139.8 ml/min; Est GFR (Non-African American) 120.6 ml/min; Globulin 3.1 gm/dl (2.5-4.0); Total Protein 6.6 gm/dl (6.4-8.2)
[2021-03-21 16:43] LABS: Potassium 3.2 mmol/L (3.5-5.1)
[2021-03-21] MEDS ORDERED: POTASSIUM CHLORIDE CRTAB 20 MEQ TABCR PO STA ×2 (17:08)
[2021-03-21] MEDS ORDERED: POTASSIUM CHLORIDE PWD 20 MEQ PACK PO ONE (17:30)
[2021-03-21] MEDS ORDERED: LACTATED RINGER'S 1,000 ML IV ONE (17:53)
[2021-03-22] MEDS: LORazepam 2 MG/4 ML VIAL IV PRN ×10 (02:42→23:23)
[2021-03-22] MEDS ORDERED: HALOPERIDOL LACTATE 5 MG/ML 1 ML VIAL IM STA (04:13)
[2021-03-22 08:15] LABS: Basophils # (auto) 0.01 K/uL (0-0.2); Basophils % (auto) 0.1 %; Eosinophils % (auto) 0.9 %; Hematocrit (blood only) 43.2 % (42-52); Hemoglobin 14.6 g/dL (14.0-18.0); Immature Granulocytes # (auto) 0.02 K/uL (0.00-0.02); Immature Granulocytes % (auto) 0.2 %; Lymphocytes # (auto) 2.14 K/uL (1.2-3.4); Lymphocytes % (auto) 20.1 %; Mean Corpuscular Hemoglobin 31.1 pg (25-34); Mean Corpuscular Hgb Conc 33.8 g/dL (32-36); Mean Corpuscular Volume 92.1 fL (80-100); Mean Platelet Volume 9.6 fL (7.4-10.4); Monocytes # (auto) 0.77 K/uL (0.11-0.59); Monocytes % (auto) 7.2 %; Neutrophils # (auto) 7.59 K/uL (1.4-6.5); Neutrophils % (auto) 71.5 %; Platelet Count 344 K/uL (130-400); RDW Coefficient of Variation 13.7 % (11.5-14.5); RDW Standard Deviation 46.4 fL (36.4-46.3); Red Blood Count 4.69 M/uL (4.7-6.1); White Blood Count 10.63 K/uL (4.8-10.8)
--- NOTE | 2021-03-22 08:16 | Hospitalist Progress Note ---
Date of Service March 22, 2021 Assessment & Plan (1) Anticholinergic syndrome: Patient is a 45 year old male with PMHx Paranoid Schizophrenia, BPD who presented with acute delirium secondary to suspected Benadryl Overdose. Patient with reported consumption of 60-80 capsules of Benadryl in order to allow him to sleep. Per admission SI was denied, unable to confirm as patient is nonsensical in regards to responses. Acute Delirium secondary to Anticholinergic Overdose and exacerbation of chronic mental health conditions -Severe agitation requiring multiple doses of Haldol and Ativan on admission, ultimately requiring restraints for concern of harm to self and staff -Hold on further Haldol for concerns of worsening confusion/rhabdomyolysis - Received 5mg IM overnight -Continues with tachycardia. Hypertension has resolved. Agitation has reduced. -Reduced restraints to soft limb on upper extremities only as patient is more cooperative today. Continue to evaluate for possible removal. -Psychiatry consulted -Recommending Ativan 2mg q2h PRN -Continue with symptomatic care for anticholinergic overdose -Continue 1:1 sitter Urinary Retention -Secondary to anticholinergic overdose -Hanson to placed today after multiple required straight catheterizations -Will monitor for agitation/attempts for removal Rhabdomyolysis -CK Mildly elevated at 1575 on admission, improving -Gave 1L LR bolus yesterday, will give another today with improving CK 1340 Hx Schizophrenia -Suspect noncompliance of home meds, though patient notes he "don't take anything at home." Dispo: M/S Telemetry for continued close monitoring while patient recovers from anticholinergic overdose FEN: Reg diet DVT: Low Risk - if continued restraints consider chemoprophylaxis Code: Full Admission and Anticipated Discharge Date Admission Date: March 19, 2021 Supervising Physician Co-Signing Physician Notes I personally supervised Pavan Kang DO on this patient's care. I interviewed and examined the patient independently of him. Unfortunate 45yo M w/ hx of psychiatric problems and drug abuse, presenting with polysubstance use. On my exam today, he is significantly improved. Notes wrist pain (from his restraints), but otherwise without complaint. Ate breakfast without issue and is taking in good PO. - Will continue IV thiamine as his drinking history is unclear. - Encourage good PO intake to keep kidneys healthy from very mild rhabdo. - Will have psych re-assess and institute appropriate psychiatric medications. Subjective Patient more awake and responsive this AM. Able to answer questions, though still confused at times. Last recalls being at the [facility] in [place], [place]. States he had likely taken closer to 20-40 Benadryl to help with sleep and "may have exaggerated" on admission. States he does not take any medications at home otherwise. Notes he does have a market asset protection manager who has been helping him try to find new accommodations. Notes he is having "trouble breathing because my arm is up." Otherwise denies chest pain, pressure, abdominal pain. Review of Systems Review of Systems: All systems reviewed & are unremarkable except as noted in Subjective Physical Exam Constitutional: cooperative Eyes: PERRL, conjunctivae normal, anicteric sclerae Respiratory: normal respiratory effort, lungs clear to auscultation Cardiovascular: Rate/Rhythm: regular rhythm and + tachycardic Heart Sounds: no murmur Gastrointestinal (Abdomen): normal bowel sounds, soft, nontender, no hepatosplenomegaly Psychiatric: Orientation: alert and oriented to person; + not oriented to place and + not oriented to time Results & Data Results & Data ([facility]) Vital Signs (Past 12 Hours) Vital Signs Temp Pulse Pulse Resp BP BP Pulse Ox 03/22/21 07:39 122 H 03/22/21 06:54 37.0 C 114 H 20 137/80 93 03/22/21 02:31 122 H 03/22/21 02:26 36.6 C 115 H 22 142/88 H 93 03/21/21 23:30 36.6 C 118 H 18 130/76 94 Resident Activity Tracking Resident Involvement: Resident Care Provided Care Provided: Adult Hospital Medicine (1) Anticholinergic syndrome Encounter type: initial encounter Injury intent: undetermined intent Qualified Code(s): T44.3X4A - Poisoning by other parasympatholytics [anticholinergics and antimuscarinics] and spasmolytics, undetermined, initial encounter
[2021-03-22] MEDS: THIAMINE HCL 100 MG in SYRINGE 9 ML IV SCH (08:40)
[2021-03-22 08:46] LABS: Alanine Aminotransferase 34 U/L (12-78); Albumin Level 3.4 gm/dl (3.4-5.0); Aspartate Aminotransferase 63 U/L (15-37); BUN Creatinine Ratio 30.5 (10-20); Blood Urea Nitrogen 12 mg/dl (7-18); Calcium 8.7 mg/dl (8.5-10.1); Carbon Dioxide 24 mmol/L (21-32); Chloride 105 mmol/L (98-107); Creatinine Clr Calc Pharmacy 310.5 ml/min; Est GFR (African American) > 150.0 ml/min; Est GFR (Non-African American) 143.4 ml/min; Glucose 96 mg/dl (70-99); Potassium 3.8 mmol/L (3.5-5.1); Sodium 136 mmol/L (136-145)
[2021-03-22 08:57] LABS: Albumin Globulin Ratio 1.1 (0.9-2); Alkaline Phosphatase 74 U/L (45-117); Bilirubin,Total 0.8 mg/dl (0.2-1); Creatine Kinase 1340 U/L (39-308); Globulin 3.1 gm/dl (2.5-4.0); Total Protein 6.5 gm/dl (6.4-8.2)
[2021-03-22] MEDS ORDERED: LACTATED RINGER'S 1,000 ML IV ONE (09:03)
[2021-03-22] MEDS ORDERED: HALOPERIDOL LACTATE 5 MG/ML 1 ML VIAL ONE (11:14)
[2021-03-22] MEDS ORDERED: HALOPERIDOL LACTATE 5 MG/ML 1 ML VIAL IV STA (11:19)
--- NOTE | 2021-03-22 11:50 | Billing Data ---
Date of Service March 22, 2021 Coding Level of Care Code 11688 Subseq Hosp Care Lvl 2
--- NOTE | 2021-03-22 12:03 | Communication Note ---
Date of Service: March 22, 2021 Rounded on patient this morning. He is oriented to person and place but not to the date. Patient seems to be making some improvements although still remains largely confused. During the visit he was making multiple threats towards staff members in a somewhat nonsensical fashion. He was seen pulling at his lines as well as attempting to free himself from restraints. IV fluids are running at this time, 5 mg of IV Haldol was administered to protect the patient as he was quite agitated. Recommendations: Continue to check daily CKs, as Haldol use has the potential to worsen rhabdo. Continue with IV Ativan 2 mg every 2 hours as needed agitation. When able to take p.o. medication, start the patient on 5 mg of Haldol p.o. twice daily
[2021-03-22] MEDS: LACTATED RINGER'S 1,000 ML IV SCH ×2 (12:17→19:25)
[2021-03-22 15:02] LABS: Codeine Urine NEGATIVE ng/mL (<50); Hydrocodone Urine NEGATIVE ng/mL (<50); Hydromor Urine NEGATIVE ng/mL (<50); Morphine Urine NEGATIVE ng/mL (<50); Norhydrocodone Conf Ur NEGATIVE ng/mL (<50); Noroxycodone Urine NEGATIVE ng/mL (<50); Oxycodone Urine NEGATIVE ng/mL (<50); Oxymorph Urine NEGATIVE ng/mL (<50)
[2021-03-22] MEDS ORDERED: HALOPERIDOL LACTATE 5 MG/ML 1 ML VIAL IV PRN (15:15)
[2021-03-23] MEDS: HALOPERIDOL LACTATE 5 MG/ML 1 ML VIAL IM PRN ×2 (00:31→10:16)
[2021-03-23] MEDS: LORazepam 2 MG/4 ML VIAL IV PRN ×5 (02:06→16:07)
[2021-03-23] MEDS: LACTATED RINGER'S 1,000 ML IV SCH ×3 (02:57→19:54)
--- NOTE | 2021-03-23 07:35 | Hospitalist Progress Note ---
Date of Service March 23, 2021 Assessment & Plan (1) Anticholinergic syndrome: 45yo male with paranoid schizophrenia and BPH presented to the ED by law enforcement with acute delirium suspected to be secondary to accidental diphenhydramine overdose. Patient endorsed taking 60-80 Benadryl tablets in order to fall asleep, in the setting of reported habit of taking 20-30 tablets nightly for sleep. Anticholinergic toxicity Afebrile since 03/21 but remains tachycardic, delirious, agitated Discussed with toxicology on 03/23: per their recommendation, administered physostigmine 1mg IM to evaluate for improvement of suspected anticholinergic toxidrome, which resulted in rapid resolution of slurred speech; because this confirms diagnosis of anticholinergic toxicity, will continue supportive care Patient continues to require locked physical restraints due to attempts to remove medical equipment and attempts to attack staff, renewed locked restraints Agitation has required chemical sedation thus far with haldol and ativan, though haldol is currently held d/t concerns for rhabdomyolysis (below) Per toxicology, agitation can be managed with ativan 1mg IV q15min prn - titrate to effect, no dosing limit Transferring patient to PCU tele for higher level of care given new q15min IV med requirement Continue de la cruz, as urinary retention is secondary to anticholinergic toxicity Psychiatry following Continue supportive care Continue 1:1 sit Rhabdomyolysis CK elevated on admission to 1500, slightly improved over time to 1300, but went back up to 1500s (03/23) Likely secondary to agitation, antipsychotic use Holding haldol at this time, instead will chemically sedate with ativan as above, if Continue LR @ 125mL/hr Schizophrenia, personality disorder Suspect medication nonadherence prior to admission Avoid antipsychotics at this time d/t concern for rhabdomyolysis No further intervention at this time Psychiatry following Dispo: PCU tele for q15min med administration and continued close monitoring while patient recovers from anticholinergic overdose FEN: regular diet DVT: low risk - will consider chemoprophylaxis if patient continues to require restraints Code: full code Admission and Anticipated Discharge Date Admission Date: March 19, 2021 Supervising Physician Co-Signing Physician Notes Attending attestation Pt seen and examined in concert with Dr. Tabares. In agreement with the documented findings as noted in the resident documentation with any exceptions or additions as noted here. Sedated in bed with appropriate response with slurred speech, not agitated at time of examination. Appropriate question re: pyridostigmine use in diphenhydramine On examination, S1/S2 nl RRR no MCG. CTAB. Abd NT/ND BS+ve Delirium in the setting of diphenhydramine overdose, schizophrenia - psychiatry consult - waxing and waning agitation requiring restraings as noted. Prefer lorazepam to haldol for agitation 2/2 rhabdo as noted. Trial of pyridostigmine for reversal of diphenhydramine today. Continue 1:1 Rhabdomyolysis - attenuate haldol use as possible, trend and hydrate via IV Tachycardia - likely 2/2 diphenhydramine - monitor, encourage PO hydration Else see resident documentation as noted. Subjective Patient seen and evaluated at bedside this morning. Overnight patient became agitated, again requiring haldol IM in addition to ativan IV, resulting in sedation. When not sedated, patient has been trying to communicate but speech has been very slurred and incomprehensible. On exam this morning, patient was not in distress but was very confused and groggy. Seemed to be trying to figure out why he was in restraints. When reoriented, patient appears to understand and relaxes a bit. On reexamination, patient was asleep, snoring loudly but appeared comfortable. ROS unable to be obtained. Review of Systems Review of Systems: Unobtainable secondary to reduced consciousness and/or slurred speech Physical Exam Physical Exam: HEENT: NCAT, no conjunctival injection CV: tachycardic, extremities well-perfused Resp: CTABL, no wheezes/rales/rhonchi appreciated, no increased work of breathing GI: soft, nondistended, nontender, BS absent MSK: no gross deformities appreciated Skin: ecchymosis of both wrists near patient's locked restraints Neuro: oriented to person and place, not to time or situation, speech slurred, no focal neurologic deficits appreciated Appearance: wearing hospital gown, laying in bed, wrists and ankles in locked restraints Behavior: sometimes asleep, sometimes awake and calmly interactive, sometimes agitated and thrashing in bed Mood: labile Affect: labile, ranging from calm to panicked Speech: slurred, mostly incoherent, appropriate volume Thought process: linear but incoherent Thought content: delusions of persecution (e.g. thinks the hospital team is trying to kill him) Cognition: alert, memory unable to be assessed Insight: poor Judgment: poor Results & Data Results & Data ([facility]) Vital Signs (Past 12 Hours) Vital Signs Temp Pulse Pulse Resp BP Pulse Ox 03/23/21 06:35 36.4 C L 121 H 24 154/83 H 93 03/23/21 04:05 36.5 C 132 H 22 150/92 H 95 03/23/21 00:44 130 H 03/23/21 00:35 36.4 C L 122 H 28 H 139/79 92 03/22/21 21:31 37.4 C 106 H 24 128/78 91 Resident Activity Tracking Resident Involvement: Resident Care Provided Care Provided: Adult Hospital Medicine (1) Anticholinergic syndrome Encounter type: initial encounter Injury intent: undetermined intent Qualified Code(s): T44.3X4A - Poisoning by other parasympatholytics [anticholinergics and antimuscarinics] and spasmolytics, undetermined, initial encounter
[2021-03-23] MEDS: THIAMINE HCL 100 MG in SYRINGE 9 ML IV SCH (08:45)
[2021-03-23 08:51] LABS: Basophils # (auto) 0.01 K/uL (0-0.2); Basophils % (auto) 0.1 %; Eosinophils # (auto) 0.12 K/uL (0-0.5); Eosinophils % (auto) 1.2 %; Hematocrit (blood only) 43.6 % (42-52); Hemoglobin 14.9 g/dL (14.0-18.0); Immature Granulocytes # (auto) 0.02 K/uL (0.00-0.02); Immature Granulocytes % (auto) 0.2 %; Lymphocytes # (auto) 1.97 K/uL (1.2-3.4); Lymphocytes % (auto) 20.4 %; Mean Corpuscular Hemoglobin 30.8 pg (25-34); Mean Corpuscular Hgb Conc 34.2 g/dL (32-36); Mean Corpuscular Volume 90.3 fL (80-100); Mean Platelet Volume 10.1 fL (7.4-10.4); Monocytes # (auto) 0.79 K/uL (0.11-0.59); Monocytes % (auto) 8.2 %; Neutrophils # (auto) 6.74 K/uL (1.4-6.5); Neutrophils % (auto) 69.9 %; Platelet Count 367 K/uL (130-400); RDW Coefficient of Variation 13.5 % (11.5-14.5); RDW Standard Deviation 44.6 fL (36.4-46.3); Red Blood Count 4.83 M/uL (4.7-6.1); White Blood Count 9.65 K/uL (4.8-10.8)
[2021-03-23 09:15] LABS: BUN Creatinine Ratio 22.7 (10-20); Calcium 8.7 mg/dl (8.5-10.1); Creatinine Clr Calc Pharmacy 238.8 ml/min; Est GFR (African American) 149.3 ml/min; Est GFR (Non-African American) 128.8 ml/min; Potassium 3.6 mmol/L (3.5-5.1)
[2021-03-23] MEDS: ACETAMINOPHEN 325 MG TAB PO PRN (10:13)
[2021-03-23] MEDS ORDERED: PHYSOSTIGMINE SALICYLATE 1 MG/ML 2 ML AMP IM STA (16:09)
[2021-03-23] MEDS ORDERED: LORazepam 2 MG/4 ML VIAL IV PRN (17:02)
[2021-03-23] MEDS: LORazepam 1 MG/2 ML VIAL IV PRN ×11 (17:03→22:49)
--- NOTE | 2021-03-23 17:51 | Electrocardiogram Report ---
Test Reason : Blood Pressure : / mmHG Vent. Rate : 103 BPM Atrial Rate : 103 BPM P-R Int : 144 ms QRS Dur : 086 ms QT Int : 356 ms P-R-T Axes : 072 065 -01 degrees QTc Int : 466 ms Sinus tachycardia Abnormal ECG When compared with ECG of 19-MAR-2021 21:35, T wave inversion now evident in Inferior leads Confirmed by Suleman Benjamin ([id number]) on 03/23/2021 5:51:25 PM Referred By: REFERRED SELF Confirmed By:Lauri Benjamin
[2021-03-24] MEDS: LORazepam 1 MG/2 ML VIAL IV PRN ×18 (00:55→21:20)
[2021-03-24] MEDS: LACTATED RINGER'S 1,000 ML IV SCH ×3 (03:13→20:35)
[2021-03-24 06:12] LABS: BUN Creatinine Ratio 15.5 (10-20); Blood Urea Nitrogen 7 mg/dl (7-18); Calcium 8.7 mg/dl (8.5-10.1); Carbon Dioxide 27 mmol/L (21-32); Chloride 104 mmol/L (98-107); Creatinine Clr Calc Pharmacy 264.2 ml/min; Est GFR (African American) > 150.0 ml/min; Est GFR (Non-African American) 134.2 ml/min; Glucose 105 mg/dl (70-99); Potassium 3.5 mmol/L (3.5-5.1); Sodium 137 mmol/L (136-145)
[2021-03-24 06:28] LABS: Creatine Kinase 1158 U/L (39-308)
--- NOTE | 2021-03-24 07:49 | Hospitalist Progress Note ---
Date of Service March 24, 2021 Assessment & Plan (1) Anticholinergic syndrome: 45yo male with paranoid schizophrenia and BPH presented to the ED by law enforcement with acute delirium suspected to be secondary to accidental diphenhydramine overdose. Patient endorsed taking 60-80 Benadryl tablets in order to fall asleep, in the setting of reported habit of taking 20-30 tablets nightly for sleep. Anticholinergic toxicity Afebrile since 03/21 but remains tachycardic, delirious, agitated Discussed with toxicology on 03/23: per their recommendation, administered physostigmine 1mg IM to evaluate for improvement of suspected anticholinergic toxidrome, which resulted in rapid resolution of slurred speech; because this confirms diagnosis of anticholinergic toxicity, will continue supportive care Patient continues to require locked physical restraints due to attempts to remove medical equipment and attempts to attack staff, renewed locked restraints Agitation has required chemical sedation thus far with haldol and ativan, though haldol is currently held d/t concerns for rhabdomyolysis (below) Per toxicology, agitation can be managed with ativan 1mg IV q15min prn - titrate to effect, no dosing limit Transferring patient to PCU tele for higher level of care given new q15min IV med requirement Continue de la cruz, as urinary retention is secondary to anticholinergic toxicity Psychiatry following Continue supportive care Continue 1:1 sit Rhabdomyolysis CK elevated on admission to 1500, slightly improved over time to 1300, but went back up to 1500s (03/23) Likely secondary to agitation, antipsychotic use Holding haldol at this time, instead will chemically sedate with ativan as above, if Continue LR @ 125mL/hr Schizophrenia, personality disorder Suspect medication nonadherence prior to admission Avoid antipsychotics at this time d/t concern for rhabdomyolysis No further intervention at this time Psychiatry following Dispo: PCU tele for q15min med administration and continued close monitoring while patient recovers from anticholinergic overdose FEN: regular diet DVT: lovenox started 03/24 Code: full code Admission and Anticipated Discharge Date Admission Date: March 19, 2021 Supervising Physician Co-Signing Physician Notes Attending attestation Pt seen and examined in concert with Dr. Tabares. In agreement with the documented findings as noted in the resident documentation with any exceptions or additions as noted here. Waxing and waning combativeness with persecutory ("you're trying to kill me/drug me") and grandiose ("I am god") behavior. Requiring ativan at increased rate following d/c of haloperidol with moderate effecacy but still unable to remove restraints at this time 2/2 repeated threatening, aggressive behavior including spitting and outbursts. On examination, S1/S2 nl RRR no MCG. CTAB. Abd NT/ND BS+ve Delirium in the setting of diphenhydramine overdose, schizophrenia - psychiatry consult - waxing and waning agitation requiring restraints as noted. Lorazepam 1mg q15 min titrated to appropriate sedation. Close monitoring and 1:1, will diminish to soft restraints if/when violent behaviors pass, likely with resolution of diphenhydramine OD Rhabdomyolysis - improving following d/c of haloperidol. Continue to trend, hydrate Tachycardia - gradually improving, monitor. Else see resident documentation as noted. Subjective Patient seen and evaluated at bedside this morning. Patient required sedation with ativan multiple times overnight. This morning, patient is confused, though a bit less confused compared to yesterday. Endorses generalized pain and back pain, requesting vicodin. Additional ROS difficult to obtain due to patient's very slurred speech. No new concerns or complaints voiced. Results & Data Results & Data ([facility]) Vital Signs (Past 12 Hours) Vital Signs Pulse Resp BP Pulse Ox 03/24/21 05:47 122 H 21 91 03/24/21 04:47 122 H 30 H 146/120 H 95 03/24/21 03:46 118 H 190/110 H 97 03/24/21 02:46 99 H 28 H 139/84 97 03/24/21 01:46 117 H 37 H 153/98 H 96 03/24/21 00:46 112 H 41 H 158/93 H 95 03/23/21 23:46 118 H 36 H 150/84 H 98 03/23/21 22:47 128 H 32 H 137/104 H 95 03/23/21 21:47 124 H 17 140/100 94 03/23/21 20:46 124 H 26 H 167/98 H 94 Resident Activity Tracking Resident Involvement: Resident Care Provided Care Provided: Adult Hospital Medicine (1) Anticholinergic syndrome Encounter type: initial encounter Injury intent: undetermined intent Qualified Code(s): T44.3X4A - Poisoning by other parasympatholytics [anticholinergics and antimuscarinics] and spasmolytics, undetermined, initial encounter
[2021-03-24] MEDS: THIAMINE HCL 100 MG in SYRINGE 9 ML IV SCH (08:15)
[2021-03-24] MEDS ORDERED: METOPROLOL TARTRATE 1 MG/ML VIAL IV PRN (09:55)
[2021-03-24] MEDS: ENOXAPARIN INJ 40 MG/0.4 ML SYR SQ SCH (13:38)
[2021-03-25] MEDS: ACETAMINOPHEN 325 MG TAB PO PRN (01:55)
[2021-03-25] MEDS: LORazepam 1 MG/2 ML VIAL IV PRN ×4 (01:55→08:24)
[2021-03-25] MEDS: LACTATED RINGER'S 1,000 ML IV SCH ×3 (04:44→21:45)
[2021-03-25] MEDS ORDERED: ACETAMINOPHEN 1,000 MG/100 ML VIAL IV PRN (07:56)
--- NOTE | 2021-03-25 08:04 | Hospitalist Progress Note ---
Date of Service March 25, 2021 Assessment & Plan (1) Anticholinergic syndrome: 45yo male with paranoid schizophrenia and BPH presented to the ED by law enforcement with acute delirium suspected to be secondary to accidental diphenhydramine overdose. Patient endorsed taking 60-80 benadryl tablets in order to fall asleep, in the setting of reported habit of taking 20-30 tablets nightly for sleep. Anticholinergic toxicity Patient with tachycardia, intermittent fevers, dry mucous membranes, urinary retention, absent bowel sounds in the setting of intentional non-parasuicidal diphenhydramine overdose Remains tachycardia but fevers have resolved, mucous membranes less dry, bowel sounds present Agitation improving - patient has had calm, cooperative behavior today; concerns for patient and staff safety given patient's impulsivity and history of violence in the setting of underlying antisocial personality disorder; keep restraints at bedside in case they become needed Voiding trial successful today - de la cruz removed, patient was able to urinate without difficulty Continue ativan 1mg q15min prn agitation Ativan requirement decreasing - has needed 4mg over past 12 hours (patient required 11mg over the prior 12 hours) Psychiatry following Continue supportive care Continue 1:1 sit Rhabdomyolysis CK elevated on admission to 1500, elevated to that degree through 03/23, likely secondary to agitation, antipsychotic use Improved to 1300 on 03/24, will repeat CK level on 03/26 Holding haldol at this time, instead will chemically sedate with ativan as above Continue LR @ 125mL/hr Schizophrenia, personality disorder Suspect medication nonadherence prior to admission Avoiding antipsychotics at this time d/t concern for rhabdomyolysis No further intervention at this time Psychiatry following Dispo: PCU tele for q15min med administration and continued close monitoring while patient recovers from anticholinergic overdose FEN: regular diet DVT: lovenox Code: full code Admission and Anticipated Discharge Date Admission Date: March 19, 2021 Supervising Physician Co-Signing Physician Notes Attending attestation Pt seen and examined in concert with Dr. Tabares. In agreement with the documented findings as noted in the resident documentation with any exceptions or additions as noted here. Improving mental status with decreasing agitation. Still minimally congruous speech. Decreasing ativan requirement. On examination, S1/S2 nl RRR no MCG. CTAB. Abd NT/ND BS+ve Delirium in the setting of diphenhydramine overdose, schizophrenia - psychiatry consult - improving agitation and decreasing ativan requirement. Continue to monitor. Low threshold for return to restraints with violent outbursts, continue 1:1 Rhabdomyolysis - continue IVF, repeat CK in the AM Tachycardia - gradually improving, monitor. Will need discussion with psychiatry regarding disposition at discharge based on baseline issues. Else see resident documentation as noted. Subjective Patient seen and evaluated at bedside this morning. Patient is quite a bit improved compared to yesterday - since last night patient has had better behavior/less aggression, with soft restraints which he is tolerating well. Patient is sitting up in bed eating breakfast. Far more alert compared to y and speech is more clear. Patient endorses soreness of wrists and ankles but otherwise feels well. Patient endorses taking between 80-100 benadryl tablets for sleep, at least a couple times per month prior to admission. Afternoon update: I was notified by Bambi Da Silva that we are unable to continue soft restraints due to patients calm and cooperative behavior. I still have concerns for patient and staff safety given patient's labile affect, impulsivity, and long history of combative/destructive behavior secondary to antisocial personality disorder. I've asked RN to keep soft restraints at beside and security nearby in case patient become aggressive again. Review of Systems Review of Systems: Constitutional: denies fever, chills, fatigue HEENT: denies congestion, sore throat CV: denies chest pain, palpitations Resp: denies shortness of breath, cough GI: denies abdominal pain, nausea, vomiting, constipation, diarrhea Neuro: denies new numbness, tingling, weakness Physical Exam Physical Exam: HEENT: NCAT, no conjunctival injection CV: tachycardic, extremities well-perfused Resp: CTABL, no wheezes/rales/rhonchi appreciated, no increased work of breathing GI: soft, nondistended, nontender, BS present MSK: no gross deformities appreciated Skin: ecchymosis of both wrists and ankles near patient's locked restraints Neuro: oriented to person and place, not to date or situation, speech minimally slurred, no focal neurologic deficits appreciated Appearance: wearing hospital gown, laying in bed, ankles in locked restraints, wrists in soft restraints Behavior: calmly sitting in bed eating breakfast Mood: "okay" Affect: pleasant, calm Speech: mildly slurred, appropriate volume Thought process: mostly linear and coherent Thought content: delusions of persecution absent at time of interview Cognition: alert, short- and long-term memory poor Insight: poor Judgment: poor Results & Data Results & Data ([facility]) Vital Signs (Past 12 Hours) Vital Signs Temp Pulse Resp BP Pulse Ox 03/25/21 06:51 36.9 C 112 H 29 H 159/106 H 93 03/25/21 05:51 128 H 20 162/93 H 94 03/25/21 04:51 122 H 19 145/117 H 95 03/25/21 03:51 36.8 C 116 H 21 137/92 96 03/25/21 02:50 118 H 35 H 172/104 H 92 03/25/21 01:51 147/87 H 03/25/21 00:51 121 H 150/115 H 03/24/21 23:51 109 H 145/77 H 89 L 03/24/21 22:52 120 H 22 144/90 H 94 03/24/21 21:51 122 H 20 171/104 H 93 03/24/21 20:51 122 H 17 128/100 99 (1) Anticholinergic syndrome Encounter type: initial encounter Injury intent: undetermined intent Qualified Code(s): T44.3X4A - Poisoning by other parasympatholytics [anticholinergics and antimuscarinics] and spasmolytics, undetermined, initial encounter
[2021-03-25] MEDS: ENOXAPARIN INJ 40 MG/0.4 ML SYR SQ SCH (08:18)
[2021-03-25] MEDS: THIAMINE HCL 100 MG in SYRINGE 9 ML IV SCH (08:18)
[2021-03-26] MEDS ORDERED: LORazepam 1 MG TAB PO PRN (03:04)
[2021-03-26 05:36] LABS: BUN Creatinine Ratio 14.1 (10-20); Calcium 8.9 mg/dl (8.5-10.1); Creatinine Clr Calc Pharmacy 238.8 ml/min; Est GFR (African American) 149.3 ml/min; Est GFR (Non-African American) 128.8 ml/min
--- NOTE | 2021-03-26 07:50 | Hospitalist Progress Note ---
Date of Service March 26, 2021 Assessment & Plan (1) Anticholinergic syndrome: Plan: 45yo male with paranoid schizophrenia and BPH presented to the ED by law enforcement with acute delirium suspected to be secondary to accidental diphenhydramine overdose. Patient endorsed taking 60-80 benadryl tablets in order to fall asleep, in the setting of reported habit of taking 20-30 tablets nightly for sleep. Anticholinergic toxicity: resolved Patient presented with tachycardia, intermittent fevers, dry mucous membranes, urinary retention, absent bowel sounds in the setting of intentional non- parasuicidal diphenhydramine overdose Remains tachycardia but fevers have resolved, mucous membranes less dry, bowel sounds present Urinary retention resolved (03/25), de la cruz has been removed, patient urinating without difficulty Agitation has resolved, patient has not shown aggression or combativeness in past 24 hours, soft restraints at bedside in case of recurrence [facility] following; discussed again on 03/26, patient's clinical improvement suggests anticholinergic toxicity has resolved Has not required ativan in about 24 hours - ativan order changed to 1mg q2h prn Psychiatry following Continue supportive care Continue 1:1 sit Tachycardia Patient with persistent tachycardia despite resolution of other signs/symptoms of anticholinergic toxicity Differential includes anxiety/psychomotor activation secondary to underlying psychiatric condition, pulmonary embolism, others Patient with O2 sat in low 90s, intermittent tachypnea; PE unlikely given patient has not been sedentary, and has been on lovenox since 03/24, but possible; d-dimer ordered Patient will likely be medically cleared if PE workup is negative Rhabdomyolysis CK elevated on admission to 1500, elevated to that degree through 03/23, likely secondary to agitation, antipsychotic use 03/26: improved to 465 PO intake adequate, discontinue IVF, continue to hold haldol Hypertension Patient with elevated BP in the setting of agitation, anticholinergic toxicity Metoprolol tartrate 5mg IV q5min as needed for SBP>180 or DBP>110 Schizophrenia, antisocial personality disorder Patient with pressured speech and delusions of persecution despite resolution of anticholinergic toxicity Suspect medication nonadherence prior to admission Avoiding antipsychotics at this time d/t concern for rhabdomyolysis No further intervention at this time Psychiatry following, does not feel inpatient psychiatric treatment is indicated Dispo Active arrest warrant exists for patient Patient is not to leave the hospital on his own, 302 is in progress Will touch base with psychiatry team regarding 302 once patient is medically cleared for discharge Dispo: potential discharge vs step-down to medical floor today FEN: regular diet DVT: lovenox Code: full code Admission and Anticipated Discharge Date Admission Date: March 19, 2021 (1) Anticholinergic syndrome Encounter type: initial encounter Injury intent: undetermined intent Qualified Code(s): T44.3X4A - Poisoning by other parasympatholytics [anticholinergics and antimuscarinics] and spasmolytics, undetermined, initial encounter
[2021-03-26] MEDS: THIAMINE HCL 100 MG in SYRINGE 9 ML IV SCH (08:05)
[2021-03-26] MEDS: ENOXAPARIN INJ 40 MG/0.4 ML SYR SQ SCH (08:05)
[2021-03-26 10:37] LABS: D Dimer 1020 ug/L FEU (0-500)
[2021-03-26] MEDS ORDERED: LORazepam 1 MG TAB PO STA (11:09)
[2021-03-26] MEDS ORDERED: OPTIRAY 320 125ml IV ONE (11:55)
--- NOTE | 2021-03-26 12:19 | CT Scan Report ---
CT angio chest PE protocol CT DOSE: 524.50 mGycm HISTORY: 45 years-old Male with tachycardia, elevated d-dimer. Acute tachycardia TECHNIQUE: Multiple CTA images of the chest were obtained after the intravenous administration of 118 ml Optiray. Coronal and sagittal MIPS were obtained from the axial data set and were submitted for review. All measurements were obtained according to NASCET criteria. A dose lowering technique was u tilized adhering to the principles of ALARA. COMPARISON: Chest radiograph 03/19/2021. FINDINGS: CTA: The heart is normal in size. There is no pericardial effusion. No thoracic aortic aneurysm or dissect ion. There is patency of the imaged great vessels. Unremarkable pulmonary artery. The subsegmental br anches are not well opacified secondary to contrast bolus timing respiratory motion artifact. CT CHEST: Unremarkable thyroid. No adenopathy. No pneumothorax, pleural effusion, airspace consolidation and/or overt pulmonary edema. Mild subsegmental dependent bibasilar atelectasis. No airspace consolidation typical for pneumonia. There are no suspicious pulmonary nodules or masses identified. The inferior a nterior lung bases are incompletely imaged. No pneumoperitoneum. Unremarkable soft tissues. No acute fracture. Chronic appearing nondisplaced fra cture of the lateral left seventh rib. IMPRESSION: No acute intrathoracic abnormality. No pulmonary emboli. ACT 112: Negative or not required by law. The above report was generated using voice recognition software. It may contain grammatical, syntax o r spelling errors. Electronically signed by: Shahram Meeks M.D. 03/26/2021 12:18 PM
--- NOTE | 2021-03-26 13:48 | Psychiatric Consultation ---
Date of Consultation March 26, 2021 Impression / Recommendations Impression This is a 45-year-old male with antisocial personality disorder presenting following an accidental overdose. He will not require inpatient hospitalization at this time, in fact acute inpatient hospitalization would be detrimental to this patient. Recommendations: Please exercise caution around this patient as he has a history of violence and aggression Patient will not require inpatient psychiatric hospitalization at this time, no overt psychosis or suicidal ideation Patient is cleared from a psychiatric perspective to be discharged Psych History Identifying Data Patient is a 45-year-old male with a history of antisocial personality disorder who presented following an accidental overdose of Benadryl. Chief Complaint "I was a strain to get some sleep". History of Present Illness Patient has been followed by a psychiatric consult team for quite some time now as initially presented acutely delirious and what was is expected to be anticholinergic toxicity due to large ingestion of Benadryl medication. Initially patient was combative aggressive and agitated and required IM medications as well as benzodiazepines in order to control his agitation and protect him self from himself. Upon our evaluation this afternoon, patient presented clearly and cooperatively. He was regretful of having taken the medication and say that he was just on get some sleep and did not expected to cause the effects of the cause. Patient denied the need for any aftercare and stated that his mood has been stable and he had not been experiencing any suicidal or homicidal ideations. Patient also denied any overt psychotic symptoms including 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 delusions paranoia etc. Although patient's chart does list schizophrenia is a problem, this is questioned as he has never shown any overt psychotic symptoms, but rather has been so aggressive and violent and in antisocial manner. Today's evaluation was in line with this reasoning as patient once again did not showcase any psychotic symptoms and was able to clearly state his wishes as well as his plans. Patient was offered some education regarding Benadryl use as well as other sleeping agents that can be tried [id number] without running into significant side effects. Patient expressed agreement and understanding. He reports that he feels stable and ready for discharge to outpatient level of care if so desired. Allergies Allergy/AdvReac Type Severity Reaction Status Date / Time No Known Allergies Allergy Verified 03/19/21 21:02 Home Medications Medication Instructions Recorded Confirmed Type Unobtainable 03/19/21 03/19/21 History Personal History Beliefs That Will Affect Care: None Patient History Medical History Anxiety Borderline personality disorder Depression Diabetes Paranoid schizophrenia Family History Other Stroke Social History Smoking Status: Never smoker Second Hand Exposure: No; Hx Alcohol Use: No Hx Substance Use: No Preferred Language: Surinamese Communication Ability: Effective Park Interpretive Ranger Required: No Beliefs That Will Affect Care: None marital status: Single Current Living Situation: Alone Feels Safe at Home: No Is there a partner from a previous relationship who is making you feel unsafe now?: No Assistive Devices: Glasses Physical Exam Psychiatric: Orientation: alert and oriented x 3 Apperance: appropriately groomed Eye Contact: + fair eye contact Motor Behavior: no abnormal motor movements Speech: + loud speech Affect: euthymic affect Mood: no depressed mood and no anxious mood Thought Process: goal directed thought process Thought Content: reality based without delusions Suicidal Thoughts: denies suicidal thoughts, denies suicidal plan and denies suicidal intent Homicidal Thoughts: denies homicidal thoughts, denies homicidal plan and denies homicidal intent Hallucinations: no auditory 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 and no visual 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 Cognition: remote memory grossly intact Estimated Intelligence: consistent with education level Insight: + limited insight Judgement: + limited judgement Vital Signs (Past 24 Hours): Last Vital Signs Temp 36.9 C 03/26/21 13:28 Pulse 104 H 03/26/21 13:28 Resp 23 03/26/21 13:28 BP 157/106 H 03/26/21 13:28 Pulse Ox 98 03/26/21 13:28 Results & Data (PSY) Medications Administered Acetaminophen (Acetaminophen 325 Mg Tab) 650 mg PO Q4H PRN PRN Reason: pain/fever Stop: 04/19/21 00:40 Last Admin: 03/25/21 01:55 Dose: 650 mg Documented by: [id number] Admin: 03/23/21 10:13 Dose: 650 mg Documented by: [id number] Enoxaparin Sodium (Enoxaparin Inj 40 Mg/0.4 Ml Syr) 40 mg SQ QAM KELLY Stop: 04/23/21 12:14 Last Admin: 03/26/21 08:05 Dose: Not Given Documented by: [id number] Admin: 03/25/21 08:18 Dose: 40 mg Documented by: [id number] Admin: 03/24/21 13:38 Dose: 40 mg Documented by: [id number] Thiamine HCl 100 mg/ Syringe 10 mls @ 2 mls/min IV QAM KELLY Stop: 04/20/21 10:29 Last Admin: 03/26/21 08:05 Dose: Not Given Documented by: [id number] Admin: 03/25/21 08:18 Dose: 2 mls/min Documented by: [id number] Admin: 03/24/21 08:15 Dose: 2 mls/min Documented by: [id number] Admin: 03/23/21 08:45 Dose: 2 mls/min Documented by: [id number] Admin: 03/22/21 08:40 Dose: 2 mls/min Documented by: [id number] Admin: 03/21/21 11:14 Dose: 2 mls/min Documented by: [id number] Lorazepam (Ativan) 1 mg in 2 mls @ 2 mls/min IV Q15M PRN PRN Reason: Agitation, combativeness Stop: 04/22/21 17:29 Last Admin: 03/25/21 08:24 Dose: 2 mls/min Documented by: [id number] Admin: 03/25/21 03:15 Dose: 2 mls/min Documented by: [id number] Admin: 03/25/21 02:35 Dose: 2 mls/min Documented by: [id number] Admin: 03/25/21 01:55 Dose: 2 mls/min Documented by: [id number] Admin: 03/24/21 21:20 Dose: 2 mls/min Documented by: [id number] Admin: 03/24/21 19:11 Dose: 2 mls/min Documented by: [id number] Admin: 03/24/21 18:29 Dose: 2 mls/min Documented by: [id number] Admin: 03/24/21 18:03 Dose: 2 mls/min Documented by: [id number] Admin: 03/24/21 17:30 Dose: 2 mls/min Documented by: [id number] Admin: 03/24/21 15:45 Dose: 2 mls/min Documented by: [id number] Admin: 03/24/21 15:24 Dose: 2 mls/min Documented by: [id number] Admin: 03/24/21 14:04 Dose: 2 mls/min Documented by: [id number] Admin: 03/24/21 13:40 Dose: 2 mls/min Documented by: [id number] Admin: 03/24/21 12:11 Dose: 2 mls/min Documented by: [id number] Admin: 03/24/21 10:00 Dose: 2 mls/min Documented by: [id number] Admin: 03/24/21 09:32 Dose: 2 mls/min Documented by: [id number] Admin: 03/24/21 08:45 Dose: 2 mls/min Documented by: [id number] Admin: 03/24/21 08:25 Dose: 2 mls/min Documented by: [id number] Admin: 03/24/21 05:27 Dose: 2 mls/min Documented by: [id number] Admin: 03/24/21 03:14 Dose: 2 mls/min Documented by: [id number] Admin: 03/24/21 02:16 Dose: 2 mls/min Documented by: [id number] Admin: 03/24/21 00:55 Dose: 2 mls/min Documented by: [id number] Admin: 03/23/21 22:49 Dose: 2 mls/min Documented by: [id number] Admin: 03/23/21 22:09 Dose: 2 mls/min Documented by: [id number] Admin: 03/23/21 21:03 Dose: 2 mls/min Documented by: [id number] Admin: 03/23/21 20:39 Dose: 2 mls/min Documented by: [id number] Admin: 03/23/21 19:56 Dose: 2 mls/min Documented by: [id number] Admin: 03/23/21 19:32 Dose: 2 mls/min Documented by: [id number] Admin: 03/23/21 19:17 Dose: 2 mls/min Documented by: [id number] Admin: 03/23/21 18:55 Dose: 2 mls/min Documented by: [id number] Admin: 03/23/21 18:30 Dose: 2 mls/min Documented by: [id number] Admin: 03/23/21 17:25 Dose: 2 mls/min Documented by: [id number] Admin: 03/23/21 17:03 Dose: 2 mls/min Documented by: [id number] Acetaminophen (Ofirmev) 1,000 mg in 100 mls @ 400 mls/hr IV Q8H PRN PRN Reason: Pain Stop: 03/28/21 07:55 Last Infusion: 03/25/21 22:05 Dose: 0 mls/hr Documented by: [id number] Admin: 03/25/21 21:50 Dose: 400 mls/hr Documented by: [id number] Coding Level of Care Code 44659 [facility] Intl Hosp Care Lvl 2
--- NOTE | 2021-03-26 16:48 | Electrocardiogram Report ---
Test Reason : Blood Pressure : / mmHG Vent. Rate : 110 BPM Atrial Rate : 110 BPM P-R Int : 132 ms QRS Dur : 084 ms QT Int : 342 ms P-R-T Axes : 046 042 041 degrees QTc Int : 462 ms Poor data quality, interpretation may be adversely affected Sinus tachycardia Otherwise normal ECG When compared with ECG of 23-MAR-2021 10:35, Nonspecific T wave abnormality has replaced inverted T waves in Inferior leads Confirmed by Suleman Benjamin ([id number]) on 03/26/2021 4:48:21 PM Referred By: REFERRED SELF Confirmed By:Lauri Benjamin
--- NOTE | 2021-03-26 17:09 | Discharge Summary ---
Date of Service March 26, 2021 Admission HPI Per Admitting Provider Arian Dai is a 45yo male with history of paranoid schizophrenia, anxiety/depression presenting with possible Benadryl overdose. Patient is altered - unable to provide reliable details of events prior to arrival. Hi story obtained through chart review and discussion with ER attending. Patient was apparently staying at a hotel and was calling the maintenance desk multiple times to change his sheets and fix his TV. Staff members went to his room and found him naked and behaving strangely. Police were called and he was brought to the ER. Patient with history of several psychiatric disorders. Uncertain of his current medications or if he is taking them. He does report taking "a lot" of Benadryl to help him sleep - Possibly between 20 and 60 tablets. He is delirious but has no complaints - denies chest pain, SOB, abdominal pain, nausea, vomiting, diarrhea or constipation. ER Course: Ativan 1mg IV x 2 doses, NSS x 1L Admission Exam Per Admitting Provider General: patient delirious, diaphoretic, oriented to self only, able to follow commands and answer some questions appropriately with redirection Skin: warm, diaphoretic, no rashes HEENT: NC/AT, PERRL, EOMI, anicteric sclera, conjunctiva without injection, external ear normal to inspection and nontender, nares patent, slightly dry mucus membranes, dentition intact, no oropharyngeal lesions, neck supple, trachea midline, no LAD, no thyromegaly, no JVD Heart: +S1/S2, regular, tachycardic, no m/r/g Lungs: equal air entry bilaterally, no rales/rhonchi/wheezes anteriorly Abd: +BS, soft, NT/ND, no masses/organomegaly/ascites Ext: warm, 2+ pulses in UE/LE bilaterally, no clubbing/cyanosis or edema Neuro/Psych:acutely delirious, appears poorly kempt, disorganized thoughts, grossly nonfocal, moving all extremities with equal strength,oriented to self, restless/psychomotor agitation, speech is garbled and unintelligible at times Principal Diagnosis Anticholinergic toxicity secondary to diphenhydramine overdose Discharge Exam HEENT: NCAT CV: tachycardic, extremities well-perfused Resp: CTABL, no wheezes/rales/rhonchi appreciated, no increased work of breathing GI: soft, nondistended, nontender, BS present MSK: no gross deformities appreciated Skin: ecchymosis of both wrists and ankles near patient's locked restraints Neuro: oriented to person and place, not to date or situation, speech minimally slurred, no focal neurologic deficits appreciated Appearance: wearing hospital gown, laying in bed Behavior: calmly laying in bed, cooperative Mood: "good" Affect: pleasant, calm Speech: mildly slurred, appropriate volume Thought process: mostly linear and coherent Thought content: no delusions apparent during interview Cognition: alert, short- and long-term memory poor Insight: poor Judgment: poor Discharge Data Allergies Allergy/AdvReac Type Severity Reaction Status Date / Time No Known Allergies Allergy Verified 03/19/21 21:02 Consultations 03/19/21 22:32 ED Decision to Admit Stat 03/20/21 01:52 Consult Psychiatry Routine Ordered Studies 03/19/21 21:22 CT head/brain wo con Urgent 03/26/21 11:09 CT angio chest PE protocol Urgent Hospital Course (1) Anticholinergic syndrome: Anticholinergic toxicity: resolved Patient presented with tachycardia, intermittent fevers, dry mucous membranes, urinary retention, absent bowel sounds in the setting of intentional non- parasuicidal diphenhydramine overdose Case was discussed with [facility] Initially treated agitation with haldol IM and ativan IV; when patient's CK remained elevated (see below), antipsychotics were held, and agitation was treated with ativan 1mg IV q15min Remains tachycardia but fevers have resolved, mucous membranes less dry, bowel sounds present Urinary retention resolved (03/25), de la cruz has been removed, patient urinating without difficulty 03/26: agitation has resolved, patient had no ativan requirement, aggression, or combativeness in past 24 hours [facility] following; discussed again on 03/26, patient's clinical improvement suggests anticholinergic toxicity has resolved No further treatment indicated Tachycardia Patient with persistent tachycardia despite resolution of other signs/symptoms of anticholinergic toxicity Patient with O2 sat in low 90s, intermittent tachypnea; patient worked up for PE: d-dimer positive but CTA negative No leukocytosis, Hgb stable, no signs of infection; tachycardia likely secondary to anxiety/psychomotor agitation Medically cleared for discharge Rhabdomyolysis CK elevated on admission to 1500 which continued through 03/23, likely secondary to agitation, antipsychotic use Started aggressive IVF, held all antipsychotics 03/26: improved to 465 after agressive IV fluids and holding all antipsychotics PO intake adequate, IVF discontinued Recommend repeat CK drawn one week after discharge; if CK level is normal, antipsychotics no longer need to be held Hypertension Patient with elevated BP in the setting of agitation, anticholinergic toxicity PCP follow-up recommended Schizophrenia, antisocial personality disorder Patient with pressured speech and delusions of persecution despite resolution of anticholinergic toxicity Home medication regimen unknown; medication nonadherence prior to admission likely Antipsychotics held in the setting of rhabdomyolysis as above No further intervention at this time Psychiatry following, does not feel inpatient psychiatric treatment is indicated Total Time Total Time Spent Total Time Spent (In Minutes): see attending documentation Discharge Plan Discharge Items [facility]position[facility] Reason For Visit: BENADRYL OVERDOSE, ACCIDENTAL Discharge Diagnosis: Anticholinergic toxicity due to diphenhydramine overdose Condition on Discharge: Good Activity: Resume your previous activity Non-emergency contact: Primary Care Provider Call non-emergency contact if: your symptoms worsen Follow-up/Referrals: PT,DECLINED [Primary Care Provider] - Diet: Regular Addtl Attending Provider Instructions: 45yo male with paranoid schizophrenia and BPH presented to the ED by law enforcement with acute delirium suspected to be secondary to accidental diphenhydramine overdose. Patient endorsed taking 60-80 benadryl tablets in order to fall asleep, in the setting of reported habit of taking 20-30 tablets nightly for sleep. Anticholinergic toxicity: resolved Patient presented with tachycardia, intermittent fevers, dry mucous membranes, urinary retention, absent bowel sounds in the setting of intentional non- parasuicidal diphenhydramine overdose Case was discussed with [facility] Initially treated agitation with haldol IM and ativan IV; when patient's CK remained elevated (see below), antipsychotics were held, and agitation was treated with ativan 1mg IV q15min Remains tachycardia but fevers have resolved, mucous membranes less dry, bowel sounds present Urinary retention resolved (03/25), de la cruz has been removed, patient urinating without difficulty 03/26: agitation has resolved, patient had no ativan requirement, aggression, or combativeness in past 24 hours [facility] following; discussed again on 03/26, patient's clinical improvement suggests anticholinergic toxicity has resolved No further treatment indicated Tachycardia Patient with persistent tachycardia despite resolution of other signs/symptoms of anticholinergic toxicity Patient with O2 sat in low 90s, intermittent tachypnea; patient worked up for PE: d-dimer positive but CTA negative No leukocytosis, Hgb stable, no signs of infection; tachycardia likely secondary to anxiety/psychomotor agitation Medically cleared for discharge Rhabdomyolysis CK elevated on admission to 1500 which continued through 03/23, likely secondary to agitation, antipsychotic use Started aggressive IVF, held all antipsychotics 03/26: improved to 465 after agressive IV fluids and holding all antipsychotics PO intake adequate, IVF discontinued Recommend repeat CK drawn one week after discharge; if CK level is normal, antipsychotics no longer need to be held Hypertension Patient with elevated BP in the setting of agitation, anticholinergic toxicity PCP follow-up recommended Schizophrenia, antisocial personality disorder Patient with pressured speech and delusions of persecution despite resolution of anticholinergic toxicity Home medication regimen unknown; medication nonadherence prior to admission likely Antipsychotics held in the setting of rhabdomyolysis as above No further intervention at this time Psychiatry following, does not feel inpatient psychiatric treatment is indicated Pending Studies at Discharge: No Stand-Alone Forms: My [facility] OM Latam Skilled Items Patient informed of condition?: Yes Discharge Level of Care: Other Communicable Disease: No Discharge Prognosis: Stable Lines: None Urinary Catheter: No Medications and DC Order Prescriptions: No Action Unobtainable RF: 0 Discharge Orders: Discharge Order (Routine); Ordered 03/26/21 Ordered By: Orlando Tabares Admission Data Admit Date/Time: 03/19/21 22:59 Attending Provider: Ran Reed Admit Provider: Viv Krishnan Primary Care Provider: PT,DECLINED Other Providers: Suresh Sheldon ; Viv Krishnan ; Maya Aguero ; [facility], ; Bhavana Dejesus ; Milo Ruiz Other Interventions: Discharge Summary Assessment (RN) Last Done: 03/26/21 13:28 Supervising Physician Co-Signing Physician Notes Attending attestation Pt seen and examined in concert with Dr. Tabares. In agreement with the documented findings as noted in the resident documentation with any exceptions or additions as noted here. Relatively calm and interactive, presently reporting no acute pain but still not coherent in conversation/answering questions apporpriately On examination, S1/S2 nl RRR no MCG. CTAB. Abd NT/ND BS+ve Delirium in the setting of diphenhydramine overdose, schizophrenia - psychiatry consult - improving agitation and decreased ativan requirement - discharge to outpatient follow up to law enforcement custody Tachycardia - as noted, no apparent underlying pathology aside from agitation/anxiety, does improve with relief of sx. Neg CTA for PE, WBC w/o presence of infxn Rhabdomyolysis - resolving Else see resident documentation as noted. Total attending time spent on this case on the day of discharge: 45 minutes. Resident Activity Tracking Resident Involvement: Resident Care Provided Care Provided: Adult Hospital Medicine
== END 2021-03-26 15:32 | DRG 918 ==
LOC: ED 20:50 → SUATTDRO 22:59 → 2W 22:59 → 1E 03-23 18:02